=== PATIENT | female | born 1960 | race Caucasian/White ===

== ENCOUNTER → 2016-08-16 | Outpatient (CLI) | payer MEDICAID ==
[2016-08-16 14:42] LABS: Anion Gap 12 mmol/L; Blood Urea Nitrogen 20 mg/dL (7-17); Calcium 9.8 mg/dL (8.4-10.2); Carbon Dioxide 27 mmol/L (22-30); Chloride 101 mmol/L (98-107); Glucose 142 mg/dL (74-99); Non-African American GFR(MDRD) >60 (>60 ml/min/1.73 sqM); Potassium 4.2 mmol/L (3.5-5.1); Sodium 140 mmol/L (137-145)
[2016-08-16 15:07] LABS: Hemoglobin A1C 6.9 % (4.2-6.1)
== END | disposition home or self-care (01) ==
LOC: LABWHC1 14:04
PROVIDERS: ATTEND Family Medicine
DX: E78.5 Hyperlipidemia, unspecified (principal); I10 Essential (primary) hypertension; F33.1 Major depressive disorder, recurrent, moderate; E11.65 Type 2 diabetes mellitus with hyperglycemia; Z79.899 Other long term (current) drug therapy
CPT/HCPCS: 36415; 80048; 83036

== ENCOUNTER → 2016-12-21 | Outpatient (CLI) | payer MEDICAID ==
[2016-12-21 15:58] LABS: Anion Gap 11 mmol/L; Blood Urea Nitrogen 20 mg/dL (7-17); Calcium 9.8 mg/dL (8.4-10.2); Carbon Dioxide 25 mmol/L (22-30); Chloride 102 mmol/L (98-107); Glucose 95 mg/dL (74-99); Non-African American GFR(MDRD) 59 (>60 ml/min/1.73 sqM); Potassium 4.6 mmol/L (3.5-5.1); Sodium 138 mmol/L (137-145)
--- NOTE | 2016-12-21 16:26 | XR ---
Abdomen HISTORY: Hematuria, right flank pain Frontal view of the abdomen on [address] scan second July 2012 Left-sided kidney stone measures approximately 1 cm. Punctate calcifications seen within the right ki dney on prior CT not seen with certainty on today's film. There are multiple calcifications within th e pelvis which are likely represent phleboliths, difficult to exclude a ureteral calculus however. Mary Anne ng bases are not included on the exam. Bone mineralization is maintained. Degenerative disc changes i n the visualized spine. IMPRESSION: Left-sided nephrolithiasis. Indeterminate calcifications within the pelvis.
== END | disposition home or self-care (01) ==
LOC: LABWHC1 15:33
PROVIDERS: ATTEND Family Medicine
DX: N20.0 Calculus of kidney (principal); E11.65 Type 2 diabetes mellitus with hyperglycemia; I10 Essential (primary) hypertension; N30.01 Acute cystitis with hematuria
CPT/HCPCS: 36415; 74000; 80048; 83036

== ENCOUNTER → 2016-12-29 | Outpatient (CLI) | payer MEDICAID ==
--- NOTE | 2016-12-29 15:43 | US ---
EXAMINATION TYPE: US kidneys/renal and bladder DATE OF EXAM: 12/29/2016 COMPARISON: NONE CLINICAL HISTORY: N20.0 Calculus of Kidney. Left renal stone. Patient unable to urinate for 3 weeks EXAM MEASUREMENTS: Right Kidney: 11.4 x 6.0 x 6.3 cm Left Kidney: 12.0 x 4.9 x 5.5 cm Post Void Residual Volume: 360.1 mL Right Kidney: no evidence of hydronephrosis or mass Left Kidney: stone lower pole = 0.9cm Bladder: appears wnl Bilateral Jets seen: yes Normal Post Void Residual: no *Patient states complete hysterectomy 2008. Complex area noted posterior to bladder (ML pelvis) = 11. 3 x 10.2 x 8.0cm There is no evidence for hydronephrosis at this point in time. No nephrolithiasis is seen. No mukesh s are identified. The urinary bladder is anechoic. Bilateral ureteral jets are seen. IMPRESSION: 1. Nonobstructing nephrolithiasis. 2. Complex mass posterior to the urinary bladder. Correlate with the CT and/or pelvic ultrasound.
== END | disposition home or self-care (01) ==
LOC: RADUSWWP 14:52
PROVIDERS: ATTEND Urology
DX: N20.0 Calculus of kidney (principal); N32.9 Bladder disorder, unspecified
CPT/HCPCS: 76770

== ENCOUNTER 2016-12-31 11:58 | Inpatient (IN) | payer MEDICAID ==
--- NOTE | 2016-12-31 13:14 | ED ---
Female Urogenital HPI <Hunter Paul - Last Filed: 12/31/16 15:05> - General Source: patient, RN notes reviewed Mode of arrival: ambulatory Limitations: no limitations <Herminia Stiles - Last Filed: 12/31/16 20:01> - General Chief complaint: Urogenital Stated complaint: Female Time Seen by Provider: 12/31/16 12:30 - History of Present Illness Initial comments: Patient is a 56-year-old female presents to the emergency room for evaluation of urinary retention. Patient states she began developing symptoms about 3 weeks ago. Patient states she's been unable to urinate. Patient states she follow-up with her primary care provider and was told that she possibly a bladder infection. Patient states she was placed on Bactrim. Patient states she was having issues with urinating still. Patient states she has only been able to get a few droplets out and still feels the urge to urinate. Patient states that she follows-up with Dr. Moya. Patient states she had an ultrasound of her bladder/abdomen 2 days ago. Patient states she has not received the results yet. Patient states she sis still having trouble urinating. Patient states she has the urge to urinate but is unable to go. Patient states her abdomen feels very uncomfortable. Patient also states that she has also been having issues with constipation. Patient states she feels like she can't have a decent bowel movement. Patient states that she is having ribbonlike stool. Patient denies nausea or vomiting. Patient denies chest pain shortness of breath. Patient states he just wants to be able to urinate. Patient states she has a history of total hysterectomy and appendectomy. (Herminia Stiles) - Related Data Home Medications Medication Instructions Recorded Confirmed ALPRAZolam [Xanax] 0.25 mg PO Q6H PRN 12/31/16 12/31/16 Albuterol Sulfate [Proair Hfa] 2 puff INHALATION RT-Q6H PRN 12/31/16 12/31/16 Aspirin EC [Ecotrin Low Dose] 81 mg PO QAM 12/31/16 12/31/16 Atorvastatin [Lipitor] 20 mg PO HS 12/31/16 12/31/16 Canagliflozin [Invokana] 300 mg PO QAM 12/31/16 12/31/16 Dulaglutide [Trulicity] 0.75 mg SQ 12/31/16 12/31/16 Enalapril [Vasotec] 2.5 mg PO 12/31/16 12/31/16 Ergocalciferol [Vitamin D2] 50,000 unit PO TU 12/31/16 12/31/16 Famotidine [Pepcid] 20 mg PO 12/31/16 12/31/16 Fenofibrate [Lofibra] 160 mg PO 12/31/16 12/31/16 Gabapentin [Gralise] 600 mg PO 12/31/16 12/31/16 Ibuprofen [Motrin] 200 mg PO Q6HR PRN 12/31/16 12/31/16 Ibuprofen [Motrin] 400 mg PO Q6HR PRN 12/31/16 12/31/16 Ibuprofen [Motrin] 600 mg PO Q6HR PRN 12/31/16 12/31/16 Insulin Glargine,Hum.rec.anlog 20 units SQ 12/31/16 12/31/16 [Toujeo Solostar] Insulin Glargine,Hum.rec.anlog 80 units SQ [facility] 12/31/16 12/31/16 [Toujeo Solostar] Insulin Glulisine [Apidra] 15 unit SQ 12/31/16 12/31/16 Insulin Glulisine [Apidra] 35 unit SQ BID 12/31/16 12/31/16 Insulin Glulisine [Apidra] 40 unit SQ W/BRKFST 12/31/16 12/31/16 Insulin Glulisine [Apidra] See Protocol SQ TID 12/31/16 12/31/16 Loratadine [Claritin] 10 mg PO QAM 12/31/16 12/31/16 Metoprolol Tartrate [Lopressor] 25 mg PO BID 12/31/16 12/31/16 Minivelle Patch 1 patch TRANSDERM TUFR 12/31/16 12/31/16 Montelukast [Singulair] 10 mg PO 12/31/16 12/31/16 Sennosides [Senokot] 8.6 mg PO BID PRN 12/31/16 12/31/16 metFORMIN HCL ER [Glucophage Xr] 500 mg PO BID 12/31/16 12/31/16 traMADol HCL [traMADol HCL ER] 200 mg PO QAM 12/31/16 12/31/16 Allergies Allergy/AdvReac Type Severity Reaction Status Date / Time Penicillins Allergy Dyspnea/Rolando Verified 12/31/16 15:47 h Sulfa (Sulfonamide Allergy Unknown Verified 12/31/16 15:47 Antibiotics) Childhood artificial sweetner Allergy Severe Rash/Hives Uncoded 12/31/16 17:36 Review of Systems ROS Other: All systems not noted in ROS Statement are negative. <Hunter Paul - Last Filed: 12/31/16 15:05> ROS Other: All systems not noted in ROS Statement are negative. <Herminia Stiles - Last Filed: 12/31/16 20:01> ROS Statement: Those systems with pertinent positive or pertinent negative responses have been documented in the HPI. Past Medical History Past Medical History: Asthma, Diabetes Mellitus, Fibromyalgia, GERD/Reflux, Hypertension, Osteoarthritis (OA) Additional Past Medical History / Comment(s): kidney stone History of Any Multi-Drug Resistant Organisms: None Reported Past Surgical History: Adenoidectomy, Appendectomy, Section, Hysterectomy, Orthopedic Surgery, Tonsillectomy Additional Past Surgical History / Comment(s): kidney stent, D&C Past Psychological History: No Psychological Hx Reported Smoking Status: Never smoker Past Alcohol Use History: None Reported Past Drug Use History: None Reported - Past Family History Mother Family Medical History: Cancer Additional Family Medical History / Comment(s): eye, heart disease Father Additional Family Medical History / Comment(s): ALS <Herminia Stiles - Last Filed: 12/31/16 20:01> General Exam <Hunter Paul - Last Filed: 12/31/16 15:05> Limitations: no limitations General appearance: alert, anxious Head exam: Present: atraumatic, normocephalic, normal inspection Eye exam: Present: normal appearance ENT exam: Present: normal exam Neck exam: Present: normal inspection Respiratory exam: Present: normal lung sounds bilaterally. Absent: respiratory distress Cardiovascular Exam: Present: regular rate, normal rhythm, normal heart sounds GI/Abdominal exam: Present: soft, tenderness (Suprapubic discomfort), normal bowel sounds. Absent: distended, guarding, rebound, rigid Rectal exam: Present: normal rectal tone. Absent: mass (No masses palpated) Extremities exam: Present: normal inspection Back exam: Present: normal inspection Neurological exam: Present: alert, oriented X3, CN II-XII intact, normal gait Psychiatric exam: Present: normal affect, normal mood Skin exam: Present: warm, dry, intact, normal color. Absent: rash <Herminia Stiles - Last Filed: 12/31/16 20:01> - General Exam Comments Initial Comments: Sitting up in exam room, uncomfortable secondary to urinary retention (Herminia Stiles) Course <Hunter Paul - Last Filed: 12/31/16 15:05> <Herminia Stiles - Last Filed: 12/31/16 20:01> Vital Signs 12/31/16 12/31/16 12/31/16 12:00 13:00 13:54 Temperature 97.7 F Pulse Rate 72 76 Respiratory 20 20 16 Rate Blood Pressure 116/56 111/56 O2 Sat by Pulse 99 99 Oximetry 12/31/16 12/31/16 12/31/16 13:57 15:00 16:00 Temperature 99.3 F 99.2 F Pulse Rate 73 84 Respiratory 20 18 Rate Blood Pressure 108/57 108/57 119/61 O2 Sat by Pulse 98 96 98 Oximetry - Reevaluation(s) Reevaluation #1: 12/31/16 15:05 I did personally do a [id number] evaluation the patient did discuss findings with the patient and her . Patient does have evidence of a pelvic mass behind the bladder. Patient did have complaints of inability urinate today she did have 1300 mL of urine removed after catheter was placed. Additionally the patient has been having problems with bowel movements with very thin ribbon size bowel movements recently. Ultrasound done 2 days ago did show evidence of a mass behind her bladder. I did discuss case with Dr. Mckeon. The patient will be admitted with CT the abdomen and pelvis consultation by urology and Gen. surgery. Dr. eDshpandeania seen the patient past and she has requested him for consultation. (Hunter Paul) Medical Decision Making - Lab Data Result diagrams: 12/31/16 13:30 12/31/16 13:30 <Hunter Paul - Last Filed: 12/31/16 15:05> - Lab Data Result diagrams: 12/31/16 13:30 12/31/16 13:30 <Herminia Stiles L - Last Filed: 12/31/16 20:01> - Lab Data Lab Results 12/31/16 12/31/16 12/31/16 Range/Units 13:25 13:30 13:30 WBC 7.7 (3.8-10.6) k/uL RBC 4.78 (3.80-5.40) m/uL Hgb 13.1 (11.4-16.0) gm/dL Hct 41.1 (34.0-46.0) % MCV 86.0 (80.0-100.0) fL MCH 27.4 (25.0-35.0) pg MCHC 31.8 (31.0-37.0) g/dL RDW 13.5 (11.5-15.5) % Plt Count 264 (150-450) k/uL Neutrophils % 72 % Lymphocytes % 18 % Monocytes % 5 % Eosinophils % 3 % Basophils % 1 % Neutrophils # 5.6 (1.3-7.7) k/uL Lymphocytes # 1.4 (1.0-4.8) k/uL Monocytes # 0.4 (0-1.0) k/uL Eosinophils # 0.2 (0-0.7) k/uL Basophils # 0.1 (0-0.2) k/uL Sodium 143 (137-145) mmol/L Potassium 4.7 (3.5-5.1) mmol/L Chloride 107 (98-107) mmol/L Carbon Dioxide 25 (22-30) mmol/L Anion Gap 11 mmol/L BUN 18 H (7-17) mg/dL Creatinine 0.73 (0.52-1.04) mg/dL Est GFR (MDRD) Af Amer >60 (>60 ml/min/1.73 sqM) Est GFR (MDRD) Non-Af >60 (>60 ml/min/1.73 sqM) Glucose 82 (74-99) mg/dL Calcium 9.5 (8.4-10.2) mg/dL Total Bilirubin 0.8 (0.2-1.3) mg/dL AST 30 (14-36) U/L ALT 36 (9-52) U/L Alkaline Phosphatase 73 (38-126) U/L Total Protein 7.3 (6.3-8.2) g/dL Albumin 4.1 (3.5-5.0) g/dL Urine Color Yellow Urine Appearance Clear (Clear) Urine pH 5.5 (5.0-8.0) Ur Specific [place] 1.023 (1.001-1.035) Urine Protein Negative (Negative) Urine Glucose (UA) 4+ H (Negative) Urine Ketones Negative (Negative) Urine Blood Negative (Negative) Urine Nitrite Negative (Negative) Urine Bilirubin Negative (Negative) Urine Urobilinogen <2.0 (<2.0) mg/dL Ur Leukocyte Esterase Negative (Negative) Disposition <Hunter Paul - Last Filed: 12/31/16 15:05> Decision Date: 12/31/16 <Herminia Stiles - Last Filed: 12/31/16 20:01> Clinical Impression: Pelvic mass, Urinary retention Disposition: ADMITTED IP TO THIS [facility] Condition: Stable
[2016-12-31 13:40] LABS: Appearance,Urine Clear (Clear); Bilirubin,Urine Negative (Negative); Glucose,Urine (UA) 4+ (Negative); Ketones,Urine Negative (Negative); Leukocyte Esterase,Urine Negative (Negative); Nitrite,Urine Negative (Negative); PH, Urine 5.5 (5.0-8.0); Protein,Urine Negative (Negative); Specific Gravity,Urine 1.023 (1.001-1.035); UA Billing (MACRO vs. MICRO) CHEM; Urobilinogen,Urine <2.0 mg/dL (<2.0)
[2016-12-31 13:48] LABS: Basophils # (A) 0.1 k/uL (0-0.2); Basophils % (A) 1 %; CH 28.1; CHCM 32.7; Eosinophils # (A) 0.2 k/uL (0-0.7); Eosinophils % (A) 3 %; HCT 41.1 % (34.0-46.0); HDW 2.81; HGB 13.1 gm/dL (11.4-16.0); Luc # (Auto) 0.08; Luc % (Auto) 1; Lymphocytes # (A) 1.4 k/uL (1.0-4.8); Lymphocytes % (A) 18 %; MCH 27.4 pg (25.0-35.0); MCHC 31.8 g/dL (31.0-37.0); Mean Platelet Volume 6.6; Monocytes # (A) 0.4 k/uL (0-1.0); Monocytes % (A) 5 %; Neutrophils # (A) 5.6 k/uL (1.3-7.7); Neutrophils % (A) 72 %; RBC 4.78 m/uL (3.80-5.40); RDW 13.5 % (11.5-15.5); WBC 7.7 k/uL (3.8-10.6)
[2016-12-31 14:01] LABS: ALT 36 U/L (9-52); AST 30 U/L (14-36); Alkaline Phosphatase 73 U/L (38-126); Anion Gap 11 mmol/L; Blood Urea Nitrogen 18 mg/dL (7-17); Calcium 9.5 mg/dL (8.4-10.2); Carbon Dioxide 25 mmol/L (22-30); Chloride 107 mmol/L (98-107); Glucose 82 mg/dL (74-99); Non-African American GFR(MDRD) >60 (>60 ml/min/1.73 sqM); Potassium 4.7 mmol/L (3.5-5.1); Sodium 143 mmol/L (137-145); Total Bilirubin 0.8 mg/dL (0.2-1.3); Total Protein 7.3 g/dL (6.3-8.2)
[2016-12-31] MEDS ORDERED: RX INFO: IV CONTRAST WAS GIVEN 1 EACH MISC MISCELLANE PRN (14:30)
[2016-12-31] MEDS ORDERED: IOHEXOL 350 MG/ML 25 ML BOTTLE (ORAL USE) PO PRN (14:30)
[2016-12-31] MEDS ORDERED: NALOXONE 0.4 MG/ML 1 ML VIAL IV PRN (15:07)
[2016-12-31] MEDS ORDERED: IBUPROFEN 400 MG TAB PO PRN (15:07)
[2016-12-31] MEDS ORDERED: ACETAMINOPHEN TAB 325 MG TAB PO PRN (15:07)
[2016-12-31] MEDS: SODIUM CHLORIDE 0.9% 1,000 ML IV SCH (16:00)
[2016-12-31] MEDS: MORPHINE SULFATE 4 MG/ML SYRINGE IV PRN ×2 (16:09→19:52)
--- NOTE | 2016-12-31 16:54 | CT ---
EXAMINATION TYPE: CT abdomen pelvis w con DATE OF EXAM: 12/31/2016 4:44 PM COMPARISON: August 01, 2012 HISTORY: Pelvic pain and inability to urinate or have bowel movements CT DLP: 1774.7 mGycm Automated exposure control for dose reduction was used. TECHNIQUE: Helical acquisition of images was performed from the lung bases through the pelvis. CONTRAST: Performed with Oral Contrast and with IV Contrast, patient injected with 100 mL of Omnipaque 300. FINDINGS: There is mild subsegmental atelectasis at the lung bases. There is no pleural effusion. Liver spleen pancreas gallbladder appear normal. Bile ducts are not dilated. There is no adrenal mass . Kidneys show satisfactory contrast opacification. There is a 8 mm calcification in the lower pole l eft kidney. There is no hydronephrosis. Ureters are not dilated. There is a 1 cm cortical cyst on the anterior right kidney. There is no retroperitoneal adenopathy. There is a 14 x 9 cm mass in the pelvis in the midline that extends to the pelvic floor. The mass samir ears to have contrast enhancement. There is a Martel catheter in the urinary bladder. Urinary bladder is unremarkable. Hysterectomy is pr esent on the old CT scan of August 01, 2012 I see no bony destructive process.. IMPRESSION: THERE IS A LARGE MIDLINE PELVIC MASS THAT APPEARS TO BE ENHANCING CONSISTENT WITH A SOLID TUMOR THAT IS NEW COMPARED TO THE OLD CT SCAN OF AUGUST 01, 2012. THIS COULD BE A PRIMARY OVARIAN TUMOR. FOLLOW- UP IS RECOMMENDED. NONOBSTRUCTING LEFT RENAL CALCULUS IS UNCHANGED.
[2016-12-31 18:22] LABS: Glucose,Whole Blood 62 mg/dL (75-99)
[2016-12-31 18:22] LABS: Glucose,Whole Blood 76 mg/dL (75-99)
[2016-12-31 18:22] LABS: Glucose,Whole Blood 65 mg/dL (75-99)
[2016-12-31] MEDS: INSULIN LISPRO (humaLOG) 300 UNIT/3 ML VIAL SQ SCH ×2 (18:37→21:15)
[2016-12-31 21:09] LABS: Glucose,Whole Blood 77 mg/dL (75-99)
[2016-12-31] MEDS: LISINOPRIL 5 MG TAB PO SCH (21:42)
[2016-12-31] MEDS: METOPROLOL TARTRATE 25 MG TAB PO SCH (21:42)
[2016-12-31] MEDS: MORPHINE SULFATE 10 MG/ML SYRINGE IVP PRN (22:26)
[2016-12-31] MEDS: ONDANSETRON 4 MG/2 ML VIAL IVP PRN (22:29)
[2017-01-01] MEDS: MORPHINE SULFATE 10 MG/ML SYRINGE IVP PRN ×8 (01:23→22:18)
[2017-01-01] MEDS: SODIUM CHLORIDE 0.9% 1,000 ML IV SCH ×3 (01:23→19:36)
[2017-01-01 01:40] LABS: Glucose,Whole Blood 95 mg/dL (75-99)
[2017-01-01 07:50] LABS: Glucose,Whole Blood 103 mg/dL (75-99)
[2017-01-01] MEDS: INSULIN LISPRO (humaLOG) 300 UNIT/3 ML VIAL SQ SCH ×4 (07:50→21:03)
[2017-01-01] MEDS: ONDANSETRON 4 MG/2 ML VIAL IVP PRN (07:54)
[2017-01-01] MEDS: METOPROLOL TARTRATE 25 MG TAB PO SCH ×2 (08:37→21:04)
--- NOTE | 2017-01-01 10:20 | P.GSCN ---
History of Present Illness Consult date: 01/01/17 Reason for Consult: Urinary retention, constipation, mass on computed tomography scan History of present illness: The patient is a pleasant 56-year-old female who had been having some intermittent lower abdominal pain for some time. The last 3-4 weeks however she 's been having urinary complaints. He feels like she wasn't emptying well. She was first given a trial of antibiotics for a presumed infection. That didn' t help. She subsequently went in and saw the urologist and had an ultrasound ordered was. Follow-up in the office next week. She came in because she was not able to urinate. Catheter was placed in 1300 mL's of urine was withdrawn. A computed tomography scan shows a pelvic mass. He is also been having trouble with bowel movements last 3 weeks. They've been either pellet-like or ribbonlike. No blood in the stools. There is a family history of colon cancer and a maternal grandfather who is elderly. She reports a hysterectomy with oophorectomy some years ago by Dr. Betancourt. This was for benign disease. A grandmother may have had a hysterectomy for "stage nil" female cancer many years ago. Her mother and sister have had hysterectomies for benign disease. Review of Systems All systems: negative Past Medical History Past Medical History: Asthma, Diabetes Mellitus, Fibromyalgia, GERD/Reflux, Hypertension, Osteoarthritis (OA) Additional Past Medical History / Comment(s): kidney stone History of Any Multi-Drug Resistant Organisms: None Reported Past Surgical History: Adenoidectomy, Appendectomy, Section, Hysterectomy, Orthopedic Surgery, Tonsillectomy Additional Past Surgical History / Comment(s): kidney stent, D&C Past Anesthesia/Blood Transfusion Reactions: Postoperative Nausea & Vomiting ( PONV) Past Psychological History: No Psychological Hx Reported Smoking Status: Never smoker Past Alcohol Use History: None Reported Past Drug Use History: None Reported - Past Family History Mother Family Medical History: Cancer Additional Family Medical History / Comment(s): eye, heart disease Father Additional Family Medical History / Comment(s): ALS Medications and Allergies Home Medications Medication Instructions Recorded Confirmed Type ALPRAZolam [Xanax] 0.25 mg PO Q6H PRN 12/31/16 12/31/16 History Albuterol Sulfate [Proair Hfa] 2 puff INHALATION RT-Q6H PRN 12/31/16 12/31/16 History Aspirin EC [Ecotrin Low Dose] 81 mg PO QA 12/31/16 12/31/16 History Atorvastatin [Lipitor] 20 mg PO 12/31/16 12/31/16 History Canagliflozin [Invokana] 300 mg PO QA 12/31/16 12/31/16 History Dulaglutide [Trulicity] 0.75 mg SQ 12/31/16 12/31/16 History Enalapril [Vasotec] 2.5 mg PO 12/31/16 12/31/16 History Ergocalciferol [Vitamin D2] 50,000 unit PO 12/31/16 12/31/16 History Famotidine [Pepcid] 20 mg PO 12/31/16 12/31/16 History Fenofibrate [Lofibra] 160 mg PO 12/31/16 12/31/16 History Gabapentin [Gralise] 600 mg PO 12/31/16 12/31/16 History Ibuprofen [Motrin] 200 mg PO Q6HR PRN 12/31/16 12/31/16 History Ibuprofen [Motrin] 400 mg PO Q6HR PRN 12/31/16 12/31/16 History Ibuprofen [Motrin] 600 mg PO Q6HR PRN 12/31/16 12/31/16 History Insulin Glargine,Hum.rec.anlog 20 units SQ 12/31/16 12/31/16 History [Toujeo Solostar] Insulin Glargine,Hum.rec.anlog 80 units SQ [facility] 12/31/16 12/31/16 History [Toujeo Solostar] Insulin Glulisine [Apidra] 15 unit SQ 12/31/16 12/31/16 History Insulin Glulisine [Apidra] 35 unit SQ BID 12/31/16 12/31/16 History Insulin Glulisine [Apidra] 40 unit SQ W/BRKFST 12/31/16 12/31/16 History Insulin Glulisine [Apidra] See Protocol SQ TID 12/31/16 12/31/16 History Loratadine [Claritin] 10 mg PO QAM 12/31/16 12/31/16 History Metoprolol Tartrate [Lopressor] 25 mg PO BID 12/31/16 12/31/16 History Minivelle Patch 1 patch TRANSDERM TUFR 12/31/16 12/31/16 History Montelukast [Singulair] 10 mg PO HS 12/31/16 12/31/16 History Sennosides [Senokot] 8.6 mg PO BID PRN 12/31/16 12/31/16 History metFORMIN HCL ER [Glucophage Xr] 500 mg PO BID 12/31/16 12/31/16 History traMADol HCL [traMADol HCL ER] 200 mg PO QAM 12/31/16 12/31/16 History Allergies Allergy/AdvReac Type Severity Reaction Status Date / Time Penicillins Allergy Dyspnea/Rolando Verified 12/31/16 15:47 h Sulfa (Sulfonamide Allergy Unknown Verified 12/31/16 15:47 Antibiotics) Childhood artificial sweetner Allergy Severe Rash/Hives Uncoded 12/31/16 17:36 Surgical - Exam Osteopathic Statement: *. No significant issues noted on an osteopathic structural exam other than those noted in the History and Physical/Consult. Vital Signs Temp Pulse Resp BP Pulse Ox 97.7 F 72 20 116/56 99 12/31/16 12:00 12/31/16 12:00 12/31/16 12:00 12/31/16 12:00 12/31/16 12:00 - General well developed, well nourished, no distress - Eyes normal ocular movement - ENT normal mucosa - Neck trachea midline - Respiratory normal respiratory effort, clear to auscultation - Cardiovascular Rhythm: regular - Abdomen Abdomen: soft, tender (Suprapubic), bowel sounds, no organomegaly, no guarding, no rebound, no distended - Psychiatric oriented to time, oriented to person, oriented to place, speech is normal, memory intact Results - Labs 12/31/16 13:30 12/31/16 13:30 Abnormal Lab Results - Last 24 Hours (Table) 12/31/16 12/31/16 12/31/16 Range/Units 13:25 13:30 17:44 BUN 18 H (7-17) mg/dL POC Glucose (mg/dL) 62 L (75-99) mg/dL Urine Glucose (UA) 4+ H (Negative) 12/31/16 01/01/17 Range/Units 17:57 07:35 BUN (7-17) mg/dL POC Glucose (mg/dL) 65 L 103 H (75-99) mg/dL Urine Glucose (UA) (Negative) Diabetes panel 12/31/16 Range/Units 13:30 Sodium 143 (137-145) mmol/L Potassium 4.7 (3.5-5.1) mmol/L Chloride 107 (98-107) mmol/L Carbon Dioxide 25 (22-30) mmol/L BUN 18 H (7-17) mg/dL Creatinine 0.73 (0.52-1.04) mg/dL Glucose 82 (74-99) mg/dL Calcium 9.5 (8.4-10.2) mg/dL AST 30 (14-36) U/L ALT 36 (9-52) U/L Alkaline Phosphatase 73 (38-126) U/L Total Protein 7.3 (6.3-8.2) g/dL Albumin 4.1 (3.5-5.0) g/dL Calcium panel 12/31/16 Range/Units 13:30 Calcium 9.5 (8.4-10.2) mg/dL Albumin 4.1 (3.5-5.0) g/dL Pituitary panel 12/31/16 Range/Units 13:30 Sodium 143 (137-145) mmol/L Potassium 4.7 (3.5-5.1) mmol/L Chloride 107 (98-107) mmol/L Carbon Dioxide 25 (22-30) mmol/L BUN 18 H (7-17) mg/dL Creatinine 0.73 (0.52-1.04) mg/dL Glucose 82 (74-99) mg/dL Calcium 9.5 (8.4-10.2) mg/dL Adrenal panel 12/31/16 Range/Units 13:30 Sodium 143 (137-145) mmol/L Potassium 4.7 (3.5-5.1) mmol/L Chloride 107 (98-107) mmol/L Carbon Dioxide 25 (22-30) mmol/L BUN 18 H (7-17) mg/dL Creatinine 0.73 (0.52-1.04) mg/dL Glucose 82 (74-99) mg/dL Calcium 9.5 (8.4-10.2) mg/dL Total Bilirubin 0.8 (0.2-1.3) mg/dL AST 30 (14-36) U/L ALT 36 (9-52) U/L Alkaline Phosphatase 73 (38-126) U/L Total Protein 7.3 (6.3-8.2) g/dL Albumin 4.1 (3.5-5.0) g/dL - Imaging CT scan - abdomen: report reviewed, image reviewed Assessment and Plan (1) Pelvic mass Status: Acute (2) Urinary retention Status: Acute Plan: This mass appears to be a solid tumor. It does not appear to arise directly out of the bladder or the colon. She has had a hysterectomy however concern is high that this could be a gynecologic tumor. We will order some tumor markers and have her evaluated by Dr. Betancourt. Likely need a colonoscopy at some point to the family history of colon cancer. This does not appear to be a colon tumor on her CAT scan however. Further recommendations to follow
[2017-01-01] MEDS ORDERED: ALBUTEROL NEBULIZED 2.5 MG/3 ML INHALATION PRN (12:30)
[2017-01-01 12:34] LABS: Glucose,Whole Blood 90 mg/dL (75-99)
--- NOTE | 2017-01-01 13:32 | CONS ---
DATE OF CONSULTATION: REASON FOR CONSULTATION: Urinary retention. HISTORY: The patient is a 56-year-old female admitted through the emergency room yesterday for evaluation of lower abdominal pain and urinary retention. The patient says she first developed pain in her low back and lower abdomen associated with some tailbone pain 3 weeks ago. She says she was suspected to have a urinary tract infection by Dr. Ling and was treated with Bactrim. She continued to have problems and complained of constipation with a ribbon- like stool and required straining to void. She apparently had some blood noted after she voided on one occasion. She was seen by Dr. Moya on 12/28. Urinalysis at that time showed no microscopic hematuria. She was scheduled to have a renal ultrasound due to a history of urolithiasis and this did confirm a 9 mm nonobstructive calculus in the left kidney on 12/29. The patient continued to have pain and presented to the emergency room yesterday because it was more and more difficult for her to void. A catheter was inserted and drained [address] scan of the abdomen and pelvis showed a 5 x 8 mm nonobstructive calculus in the lower pole of the left kidney. The right kidney was unremarkable. A 14 x 9 cm solid mass was present posterior to the bladder and anterior to the rectum. The patient has been admitted for further evaluation. The patient has a history of urolithiasis but has not had a stone in approximately 10 years. She did have a double-J catheter placed in 1989 but apparently has not required any other surgical procedures for stones. She had undergone an abdominal hysterectomy with bilateral salpingo-oophorectomy in 2008 for treatment of pelvic pain and fibroids. She says she usually voids every 3 to 4 hours during the day and once at night. Up until one month ago, she said she did not have problems with constipation. Patient's past medical history is significant in regard to benign hypertension and diabetes mellitus, asthma, and fibromyalgia. In addition to the total abdominal hysterectomy with bilateral salpingo-oophorectomy, the patient has undergone appendectomy, adenoidectomy, tonsillectomy. THE PATIENT IS ALLERGIC TO SULFA AND PENICILLIN. Medications on admission included: 1. Xanax. 2. Pro-Air. 3. Aspirin. 4. Lipitor. 5. Invokana. 6. Trulicity. 7. Vasotec. 8. Pepcid. 9. Lofibra. 10. Motrin p.r.n. 11. Insulin. 12. Claritin. 13 Metoprolol. 14. Singulair. 15. Senokot. 16. Glucophage. 17. Tramadol p.r.n. No history of rheumatic fever, tuberculosis or hepatitis. REVIEW OF SYSTEMS: Significant in regard to the above. Patient feels more comfortable since her bladder was drained with a catheter, although she continued to have some vague lower abdominal discomfort. SOCIAL HISTORY: The patient is and is a nonsmoker. PHYSICAL EXAM: Reveals an obese 56-year-old female who is alert and oriented. Afebrile. Blood pressure 91/59. HEENT: No supraclavicular or cervical adenopathy. CHEST: Breathing is unlabored. ABDOMEN: Obese. No hepatosplenomegaly. No definite masses palpable in the lower abdomen; however, I did not perform a bimanual pelvic examination. IMPRESSION: 1. Urinary retention. This is most likely related to compression of the base of the bladder by the pelvic mass. Unfortunately, the patient had 1300 mL in the bladder which may cause some temporary atony of the bladder. 2. Pelvic mass - This mass appears solid on CT scan and relatively smooth. The most likely origin may be from an ovarian remnant; however, the patient says that both ovaries were removed in 2008. Unfortunately I was not able to retrieve the old records through the hospital computer system. RECOMMENDATIONS: I discussed removing the Martel catheter in the morning and switching the patient to intermittent catheterization, which she feels may be more comfortable. Dr. Moya has seen the patient in the past and will follow up with her. Thank you for allowing me to participate in the care of this patient. CATRINA
--- NOTE | 2017-01-01 13:44 | P.HPIM ---
History of Present Illness H&P Date: 01/01/17 Chief Complaint: Urinary retention, constipation, low back pain This patient is a 56-year-old female well-known to the practice presented to the emergency room for low back pain urinary retention and constipation. Patient states she began developing symptoms approximately 3 weeks ago. Patient states she has been unable to urinate for about 2-3 days. Patient was seen by Dr. Ling started on Bactrim for possible bladder infection and no improvement was noted. Patient states she had only been able to get a few droplets of urine out and yet still felt the urge to urinate. She was referred to Dr. Marc RUIZ. Ultrasound was performed and results are pending, patient was still retaining urine and also developed issues with constipation. She denies chest pain denies shortness of breath. Denies nausea denies vomiting. Review of Systems Constitutional: Reports as per HPI Ears, nose, mouth and throat: Reports as per HPI Cardiovascular: Reports as per HPI Respiratory: Reports as per HPI Gastrointestinal: Reports constipation Genitourinary: Reports difficulty voiding, Reports incomplete emptying, Reports kidney stones, Reports pelvic pain Menstruation: Reports post hysterectomy Musculoskeletal: Reports low back pain Integumentary: Reports as per HPI Neurological: Reports as per HPI Psychiatric: Reports depression Endocrine: Reports high blood sugars Hematologic/Lymphatic: Reports as per HPI Allergic/Immunologic: Reports as per HPI Past Medical History Past Medical History: Asthma, Diabetes Mellitus, Fibromyalgia, GERD/Reflux, Hypertension, Osteoarthritis (OA) Additional Past Medical History / Comment(s): kidney stone History of Any Multi-Drug Resistant Organisms: None Reported Past Surgical History: Adenoidectomy, Appendectomy, Section, Hysterectomy, Orthopedic Surgery, Tonsillectomy Additional Past Surgical History / Comment(s): kidney stent, D&C Past Anesthesia/Blood Transfusion Reactions: Postoperative Nausea & Vomiting ( PONV) Past Psychological History: No Psychological Hx Reported Smoking Status: Never smoker Past Alcohol Use History: None Reported Past Drug Use History: None Reported - Past Family History Mother Family Medical History: Cancer Additional Family Medical History / Comment(s): eye, heart disease Father Additional Family Medical History / Comment(s): ALS Medications and Allergies Home Medications Medication Instructions Recorded Confirmed Type ALPRAZolam [Xanax] 0.25 mg PO Q6H PRN 12/31/16 12/31/16 History Albuterol Sulfate [Proair Hfa] 2 puff INHALATION RT-Q6H PRN 12/31/16 12/31/16 History Aspirin EC [Ecotrin Low Dose] 81 mg PO QAM 12/31/16 12/31/16 History Atorvastatin [Lipitor] 20 mg PO 12/31/16 12/31/16 History Canagliflozin [Invokana] 300 mg PO QA 12/31/16 12/31/16 History Dulaglutide [Trulicity] 0.75 mg SQ 12/31/16 12/31/16 History Enalapril [Vasotec] 2.5 mg PO 12/31/16 12/31/16 History Ergocalciferol [Vitamin D2] 50,000 unit PO 12/31/16 12/31/16 History Famotidine [Pepcid] 20 mg PO 12/31/16 12/31/16 History Fenofibrate [Lofibra] 160 mg PO 12/31/16 12/31/16 History Gabapentin [Gralise] 600 mg PO 12/31/16 12/31/16 History Ibuprofen [Motrin] 200 mg PO Q6HR PRN 12/31/16 12/31/16 History Ibuprofen [Motrin] 400 mg PO Q6HR PRN 12/31/16 12/31/16 History Ibuprofen [Motrin] 600 mg PO Q6HR PRN 12/31/16 12/31/16 History Insulin Glargine,Hum.rec.anlog 20 units SQ 12/31/16 12/31/16 History [Toujeo Solostar] Insulin Glargine,Hum.rec.anlog 80 units SQ QA 12/31/16 12/31/16 History [Toujeo Solostar] Insulin Glulisine [Apidra] 15 unit SQ 12/31/16 12/31/16 History Insulin Glulisine [Apidra] 35 unit SQ BID 12/31/16 12/31/16 History Insulin Glulisine [Apidra] 40 unit SQ W/BRKFST 12/31/16 12/31/16 History Insulin Glulisine [Apidra] See Protocol SQ TID 12/31/16 12/31/16 History Loratadine [Claritin] 10 mg PO QA 12/31/16 12/31/16 History Metoprolol Tartrate [Lopressor] 25 mg PO BID 12/31/16 12/31/16 History Minivelle Patch 1 patch TRANSDERM TUFR 12/31/16 12/31/16 History Montelukast [Singulair] 10 mg PO HS 12/31/16 12/31/16 History Sennosides [Senokot] 8.6 mg PO BID PRN 12/31/16 12/31/16 History metFORMIN HCL ER [Glucophage Xr] 500 mg PO BID 12/31/16 12/31/16 History traMADol HCL [traMADol HCL ER] 200 mg PO QAM 12/31/16 12/31/16 History Allergies Allergy/AdvReac Type Severity Reaction Status Date / Time Penicillins Allergy Dyspnea/Rolando Verified 12/31/16 15:47 h Sulfa (Sulfonamide Allergy Unknown Verified 12/31/16 15:47 Antibiotics) Childhood artificial sweetner Allergy Severe Rash/Hives Uncoded 12/31/16 17:36 Physical Exam Osteopathic Statement: *. No significant issues noted on an osteopathic structural exam other than those noted in the History and Physical/Consult. Vitals: Vital Signs Temp Pulse Pulse Resp BP BP Pulse Ox 01/01/17 12:38 97.8 F 78 16 108/62 93 L 01/01/17 08:00 98.2 F 79 16 91/59 95 01/01/17 01:45 97.2 F L 78 18 99/59 94 L 12/31/16 20:45 97.5 F L 78 20 107/62 98 12/31/16 18:00 97.4 F L 76 18 116/72 97 12/31/16 16:00 99.2 F 84 18 119/61 98 12/31/16 15:00 73 20 108/57 96 12/31/16 13:57 99.3 F 108/57 98 12/31/16 13:54 16 Intake and Output 12/31/16 01/01/17 01/01/17 22:59 06:59 14:59 Intake Total 600 Output Total 1050 800 600 Balance -450 -800 -600 Intake: Oral 600 Output: Urine 1050 800 600 Uretheral (Martel) 1050 800 Other: Voiding Method Indwelling Catheter Indwelling Catheter Indwelling Catheter # Bowel Movements 1 Weight 97.522 kg General: [Patient awake, alert and oriented times 3. Patient in no acute distress.] HEENT: [PERRL. EOMI. No pharyngeal erythema or exudate.] Neck: [No adenopathy.] Cardiac: [Heart regular in rate and rhythm. No S3. No S4. No clicks, rubs. No murmur.] Lungs: [Clear to auscultation bilaterally.] Abdomen: [No mass. No organomegaly. Bowel sounds presnt and normoactive in all 4 quadrants.] Limited abdominal pain to deep palpation Extremes: [No edema no cyanosis no claudication normal pulses] : [] Musculoskeletal: [No joint erythema, edema or tenderness.] Skin: [No rash.] Neurologic: [No lateralizing deficits. CN II - XII grossly intact.] Lymphatic: [No adenopathy.] Results CBC & Chem 7: 12/31/16 13:30 12/31/16 13:30 Labs: Abnormal Lab Results - Last 24 Hours (Table) 12/31/16 12/31/16 12/31/16 Range/Units 13:25 13:30 17:44 BUN 18 H (7-17) mg/dL POC Glucose (mg/dL) 62 L (75-99) mg/dL Urine Glucose (UA) 4+ H (Negative) 12/31/16 01/01/17 Range/Units 17:57 07:35 BUN (7-17) mg/dL POC Glucose (mg/dL) 65 L 103 H (75-99) mg/dL Urine Glucose (UA) (Negative) Thrombosis Risk Factor Assmnt - DVT/VTE Prophylaxis DVT/VTE Prophylaxis: Low risk, early ambulation encouraged - Choose All That Apply Each Factor Represents 1 point: Age 41-60 years, Obesity (BMI >25) Other Risk Factors: No Other congenital or acquired thrombophilia - If yes, enter type in comment: No Thrombosis Risk Factor Assessment Total Risk Factor Score: 2 Thrombosis Risk Factor Assessment Level: Low Risk Assessment and Plan (1) Pelvic mass Narrative/Plan: Consultations with general surgery, Dr. Vaughn is on-call and perform a consult Consultation with urology Dr. Barreto performed consult We'll also consultation with gynecology Dr. Betancourt CAT scan performed and reviewed Status: Acute (2) Urinary retention Narrative/Plan: Patient currently has indwelling Martel Status: Acute Plan: Pain management with opiates Further orders to follow tumor markers were ordered Time with Patient: Greater than 30
[2017-01-01 13:55] LABS: Hemoglobin A1C 6.8 % (4.2-6.1)
--- NOTE | 2017-01-01 14:59 | P.OBCN ---
History of Present Illness Consult date: 01/01/17 Requesting physician: Bay Montero Jr Reason for consult: pelvic mass Chief complaint: Urinary retention, abdominal pain History of present illness: The patient is a 56-year-old 3 para 2012 who was initially admitted to the hospital complaining of difficulty urinating and increasing abdominal pain. She had previously been treated for urinary tract infection and has had microscopic hematuria in the past which has not lead to any solid diagnoses. After evaluation the emergency room and catheterization of the bladder for 1300 mL of urine, she is admitted to the hospital. She underwent computed tomography scan which demonstrates a large 14 x 9 cm solid-appearing mass occupying the pelvis reportedly above the rectum and below the bladder. The patient has undergone total abdominal hysterectomy and bilateral salpingo- oophorectomy in October 2008. The pathology was reviewed by myself from our office and is entirely benign with a finding of only leiomyomata in the myometrial tissue. The attenuation on the computed tomography scan is consistent with a soft tissue type of tumor or possible fibroid but the likelihood of this is extraordinarily low given her history of complete hysterectomy with documented pathology. She does continue to have some discomfort and difficulty both moving bowels and voiding. Catheter is in place at this time. She reports that she has felt generalized pelvic pressure and bloating for a period of months to even possibly years. She wears elastic pants and therefore is not certain as to whether or not her close it become tighter or not. Of some interest, after describing the appearance on computed tomography scan of the mass, the patient commented that her daughter carries a diagnosis of neurofibromatosis. The patient herself has never had any lesions to her knowledge and I am aware of no cafe au laite spots. Obstetrical history: 3 para 2013 with one normal vaginal delivery followed by delivery of twins. Method of contraception has been vasectomy and hysterectomy as noted above. Gynecologic history: Unremarkable aside from history of MARIOLA/BSO in 2008 with the uterus, tubes, and ovaries entirely removed with benign pathology. Review of Systems Review of systems is confined to history of present illness. Past Medical History Past Medical History: Asthma, Diabetes Mellitus, Fibromyalgia, GERD/Reflux, Hypertension, Osteoarthritis (OA) Additional Past Medical History / Comment(s): kidney stone History of Any Multi-Drug Resistant Organisms: None Reported Past Surgical History: Adenoidectomy, Appendectomy, Section, Hysterectomy, Orthopedic Surgery, Tonsillectomy Additional Past Surgical History / Comment(s): kidney stent, D&C Past Anesthesia/Blood Transfusion Reactions: Postoperative Nausea & Vomiting ( PONV) Past Psychological History: No Psychological Hx Reported Smoking Status: Never smoker Past Alcohol Use History: None Reported Past Drug Use History: None Reported - Past Family History Mother Family Medical History: Cancer Additional Family Medical History / Comment(s): eye, heart disease Father Additional Family Medical History / Comment(s): ALS Medications and Allergies Home Medications Medication Instructions Recorded Confirmed Type ALPRAZolam [Xanax] 0.25 mg PO Q6H PRN 12/31/16 12/31/16 History Albuterol Sulfate [Proair Hfa] 2 puff INHALATION RT-Q6H PRN 12/31/16 12/31/16 History Aspirin EC [Ecotrin Low Dose] 81 mg PO [facility] 12/31/16 12/31/16 History Atorvastatin [Lipitor] 20 mg PO 12/31/16 12/31/16 History Canagliflozin [Invokana] 300 mg PO [facility] 12/31/16 12/31/16 History Dulaglutide [Trulicity] 0.75 mg SQ 12/31/16 12/31/16 History Enalapril [Vasotec] 2.5 mg PO 12/31/16 12/31/16 History Ergocalciferol [Vitamin D2] 50,000 unit PO 12/31/16 12/31/16 History Famotidine [Pepcid] 20 mg PO 12/31/16 12/31/16 History Fenofibrate [Lofibra] 160 mg PO 12/31/16 12/31/16 History Gabapentin [Gralise] 600 mg PO 12/31/16 12/31/16 History Ibuprofen [Motrin] 200 mg PO Q6HR PRN 12/31/16 12/31/16 History Ibuprofen [Motrin] 400 mg PO Q6HR PRN 12/31/16 12/31/16 History Ibuprofen [Motrin] 600 mg PO Q6HR PRN 12/31/16 12/31/16 History Insulin Glargine,Hum.rec.anlog 20 units SQ 12/31/16 12/31/16 History [Grover Kowalski] Insulin Glargine,Hum.rec.anlog 80 units SQ QAM 12/31/16 12/31/16 History [Jaeubala Solostar] Insulin Glulisine [Apidra] 15 unit SQ HS 12/31/16 12/31/16 History Insulin Glulisine [Apidra] 35 unit SQ BID 12/31/16 12/31/16 History Insulin Glulisine [Apidra] 40 unit SQ W/BRKFST 12/31/16 12/31/16 History Insulin Glulisine [Apidra] See Protocol SQ TID 12/31/16 12/31/16 History Loratadine [Claritin] 10 mg PO QAM 12/31/16 12/31/16 History Metoprolol Tartrate [Lopressor] 25 mg PO BID 12/31/16 12/31/16 History Minivelle Patch 1 patch TRANSDERM TUFR 12/31/16 12/31/16 History Montelukast [Singulair] 10 mg PO HS 12/31/16 12/31/16 History Sennosides [Senokot] 8.6 mg PO BID PRN 12/31/16 12/31/16 History metFORMIN HCL ER [Glucophage Xr] 500 mg PO BID 12/31/16 12/31/16 History traMADol HCL [traMADol HCL ER] 200 mg PO QAM 12/31/16 12/31/16 History Allergies Allergy/AdvReac Type Severity Reaction Status Date / Time Penicillins Allergy Dyspnea/Rolando Verified 12/31/16 15:47 h Sulfa (Sulfonamide Allergy Unknown Verified 12/31/16 15:47 Antibiotics) Childhood artificial sweetner Allergy Severe Rash/Hives Uncoded 12/31/16 17:36 Exam - Vital Signs Vital signs: Vital Signs Temp Pulse Pulse Resp BP BP Pulse Ox 01/01/17 12:38 97.8 F 78 16 108/62 93 L 01/01/17 08:00 98.2 F 79 16 91/59 95 01/01/17 01:45 97.2 F L 78 18 99/59 94 L 12/31/16 20:45 97.5 F L 78 20 107/62 98 12/31/16 18:00 97.4 F L 76 18 116/72 97 12/31/16 16:00 99.2 F 84 18 119/61 98 06/03/17 15:00 73 20 108/57 96 Intake and Output 12/31/16 01/01/17 01/01/17 22:59 06:59 14:59 Intake Total 600 Output Total 1050 800 600 Balance -450 -800 -600 Intake: Oral 600 Output: Urine 1050 800 600 Uretheral (Martel) 1050 800 Other: Voiding Method Indwelling Catheter Indwelling Catheter Indwelling Catheter # Bowel Movements 1 Weight 97.522 kg In general, this is a well-developed centrally obese white female in no acute distress. Examination is limited to the abdomen and pelvis. Abdominal examination demonstrates some distention with mild bilateral lower quadrant tenderness and a possible palpable mass just above the pelvic brim which is tender to palpation. Bimanual pelvic examination demonstrates a normal vagina that is displaced anteriorly by a mass posterior to it. The pelvic organs are surgically absent. The Martel bulb is palpable in the bladder. Rectovaginal examination confirms the mass in the left perirectal space and wrapping around to the anterior portion of the rectum I with the rectum being deviated to the patient's right. The mass is smooth and firm though not hard to palpation. Hemoccult cards are not available on the floor. Results Result Diagrams: 12/31/16 13:30 12/31/16 13:30 Abnormal Lab Results - Last 24 Hours (Table) 12/31/16 12/31/16 12/31/16 Range/Units 13:30 17:44 17:57 POC Glucose (mg/dL) 62 L 65 L (75-99) mg/dL Hemoglobin A1c 6.8 H (4.2-6.1) % 01/01/17 Range/Units 07:35 POC Glucose (mg/dL) 103 H (75-99) mg/dL Hemoglobin A1c (4.2-6.1) % Assessment and Plan (1) Pelvic mass Status: Acute Plan: The likelihood of this mass being of gynecologic origin is extraordinarily low as the patient has undergone MARIOLA/BSO with benign pathology documented in the past. The mass is found, on exam, to occupy the left perirectal space and superiorly. Its appearance on computed tomography scan is consistent with a soft tissue or muscular type of mass and could potentially be consistent with a fibroma or neurofibroma. Tumor markers have been ordered both by general surgery and myself. The mass does not have any appearance of a typical ovarian remnant mass or for being from primary peritoneal origin. I have ordered the OVA-1 test in either case. Possibility for further diagnosis might be CT- guided needle biopsy of the mass as it does appear solid in nature. This could be entertained with interventional radiology. We will continue to follow at a distance in order to follow-up the labs that a been ordered but will otherwise leave the case in the hands of general surgery and primary care. Thank you for the opportunity to participate in this pleasant patient's care.
[2017-01-01] MEDS: KETOROLAC 30 MG/ML 1 ML VIAL IVP PRN ×2 (15:04→21:03)
[2017-01-01 17:13] LABS: Glucose,Whole Blood 118 mg/dL (75-99)
[2017-01-01 19:01] LABS: Cancer Anitgen 125 <5.5 U/mL (<35.1)
[2017-01-01 20:48] LABS: Glucose,Whole Blood 91 mg/dL (75-99)
[2017-01-01] MEDS: LISINOPRIL 5 MG TAB PO SCH (21:04)
[2017-01-01] MEDS: ATORVASTATIN 20 MG TAB PO SCH (21:04)
[2017-01-02] MEDS: MORPHINE SULFATE 10 MG/ML SYRINGE IVP PRN ×7 (01:10→20:42)
[2017-01-02] MEDS: KETOROLAC 30 MG/ML 1 ML VIAL IVP PRN ×3 (03:04→15:40)
[2017-01-02] MEDS: ONDANSETRON 4 MG/2 ML VIAL IVP PRN ×3 (03:23→19:28)
[2017-01-02] MEDS: SODIUM CHLORIDE 0.9% 1,000 ML IV SCH ×2 (03:24→22:39)
[2017-01-02 03:40] LABS: Glucose,Whole Blood 92 mg/dL (75-99)
[2017-01-02 07:36] LABS: Glucose,Whole Blood 85 mg/dL (75-99)
[2017-01-02] MEDS: INSULIN LISPRO (humaLOG) 300 UNIT/3 ML VIAL SQ SCH ×4 (07:47→20:28)
[2017-01-02] MEDS: METOPROLOL TARTRATE 25 MG TAB PO SCH ×2 (09:08→20:21)
--- NOTE | 2017-01-02 09:39 | P.CN ---
Psychiatric Consult - . Consult date: 01/02/17 Consult:: 01/02/17 09:30DATE OF SERVICE: 01/02/2017 IDENTIFYING DATA: 56 year old female admitted to the medical floor for problems with urination. HISTORY OF PRESENT ILLNESS: The patient patient lying in bed with family members and friends around her. Friends left has been remained. Patient reports that she was having problems urinating treated with antibiotics which did not help she was then sent to the emergency room. where they had to Her with over 1000 mL of urine. Patient had a workup and has been found to have a tumor. The workup is continuing as to the nature of that tumor. Psychiatric consult. Patient reports that she felt anxious last night they gave her medicine which seemed to be negative she felt nauseated and almost vomited. Patient reports that even before coming in with this problem that she was a worrier. 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 Patient also reports that in the past 2 years or so she's had a number of stressors with loss of a sister to [facility] and her father also from ALS. Patient also reports that she has some depression, has been reports sometimes she seems hopeless. They both denied that she ever has had suicidal ideation. Patient is tearful, dysphoric, anxious. Occasional hopelessness, no worthlessness, no suicidal ideation. PAST PSYCHIATRIC HISTORY: None But reports that her primary care provider put her on Wellbutrin years ago and she had side effect of tinnitus. She has a prescription now for Xanax 0.25 but states she might use it once in a great while PAST MEDICAL HISTORY: Per record ALLERGIES: Penicillin sulfa artificial sweetener CHEMICAL DEPENDENCY HISTORY: Denies any history of alcohol or drug abuse FAMILY PSYCHIATRIC HISTORY: Father had bipolar disorder and that he was treated with lithium. No history of family suicide FAMILY CHEMICAL DEPENDENCY HISTORY: None that she is aware of LEGAL HISTORY: Denies SOCIAL HISTORY: Patient was born and raised in the area parents were for her childhood she did well in school. 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 She had one sister who is from ALS. She has a stepbrother. She's been for 26 years she had thoughts 3 children one is 19 years old and she has twins who are 17 MENTAL STATUS EXAM: [Patient alert and oriented 3, good eye contact, fair groomed in hospital attire. Speech normal volume, rate and production. Coherent, logical and circumstantial thought process. No LIZ, no FOI. No TB/TW/ TI Denied auditory and visual hallucinations. Denied paranoid ideation, delusions or IOR. Memory intact Cognition average Recalled 3/3 @00, 3/3@5; WORLD DLROW Mood anxious and dysphoric tearful, affect full range decreased intensity, congruent with mood. Denies suicidal ideation, denies homicidal ideation. Insight full; Judgment plan intact for treatment purposes IMPRESSIONS: Patient admitted to the medical floor due to urinary obstruction on imaging a tumor was found and it is in the process of being worked up. Currently patient is reporting symptoms of anxiety that existed prior to this admission, and some depressive symptoms possibly meeting a full diagnosis of MDD. She has no history of suicide attempts, no history of psychiatric admissions. There is a family member who had bipolar disorder no family member who committed suicide. No jhoan no hypomania. No psychosis. No history of substance use currently or in the past. No suicidal ideation, has future oriented plans. No immediate danger to self or others. Patient is stable for discharge from a psychiatric point of view when medically cleared Anxiety disorder, unspecified Rule out KAILASH Rule out MDD PLAN: We discussed the benefit of a medicine that would treat both anxiety and depression, Effexor, she agreed that she would like to take it but would prefer to wait until she is out of the hospital and finished with what's happening to her right now. I stated that that would be fine and that her primary care doctor could manage this medication. Recommend Effexor XR 37.5 mg by mouth every morning 3 days, increase to 75 mg every morning for 3 days, and continue to increase every 3 days as tolerated until at a dose of 225 mg which will begin the dual receptor quality of this medication. Patient and agreed with treatment plan. Please reconsult if needed, psychiatry signing off. 01/02/17 09:40 01/02/17 09:48
[2017-01-02] MEDS ORDERED: PEG 3350-NA SULF,BICARB,CL/KCL 4,000 ML BOTTLE PO ONE (11:44)
--- NOTE | 2017-01-02 11:44 | P.PN ---
Subjective Principal diagnosis: Pelvic mass The patient states she feels better today. She is actually passing gas and feels more comfortable with her Martel catheter in place. I had a lengthy discussion the patient regarding her pelvic tumor. The patient had a previous hysterectomy BSO. It is unlikely this is of GROUTMAN origin. The mass on CAT scan appears to be arising from outside the colon. The patient will be scheduled for colonoscopy in the a.m. She'll undergo exposure laparotomy on Monday. Objective - Vital Signs Vital signs: Vital Signs Temp 98.2 F 01/02/17 07:00 Pulse 74 01/02/17 07:00 Resp 19 01/02/17 07:00 BP 106/64 01/02/17 07:00 Pulse Ox 94 L 01/02/17 07:00 Intake & Output 01/01/17 01/02/17 01/02/17 18:59 06:59 18:59 Intake Total 200 Output Total 600 750 Balance -400 -750 Intake: Oral 200 Output: Urine 600 700 Emesis 50 Other: Voiding Method Indwelling Catheter Indwelling Catheter Indwelling Catheter # Voids 1 # Bowel Movements 1 - Constitutional General appearance: Present: average body habitus - Gastrointestinal Gastrointestinal Comment(s): Abdomen soft. There is some mild tenderness lower quadrants. There is no rebound or guarding. - Labs CBC & Chem 7: 12/31/16 13:30 12/31/16 13:30 Labs: Abnormal Lab Results - Last 24 Hours (Table) 12/31/16 01/01/17 Range/Units 13:30 17:09 POC Glucose (mg/dL) 118 H (75-99) mg/dL Hemoglobin A1c 6.8 H (4.2-6.1) % Assessment and Plan Plan: Pelvic mass. Patient will undergo colonoscopy in a.m. We are planning for exposure laparotomy on Monday.
[2017-01-02] MEDS ORDERED: LACTATED RINGERS 1,000 ML IV ONE (12:00)
[2017-01-02 12:45] LABS: Glucose,Whole Blood 80 mg/dL (75-99)
--- NOTE | 2017-01-02 14:54 | P.PN ---
Subjective Principal diagnosis: Alexandra is a 56-year-old female well-known to my practice who presented via the emergency room 2 days ago with chief complaint of urinary retention and constipation and what turned out to be a pelvic mass Patient status post total abdominal hysterectomy bilateral salpingo- oophorectomy several years ago, who was admitted with the complaint of urinary retention, constipation, pelvic pain and what turned out to be a pelvic mass. Colonoscopy pending with possible laparoscopy per Dr. Graham. Objective - Vital Signs Vital signs: Vital Signs Temp 98.6 F 01/02/17 13:22 Pulse 74 01/02/17 13:22 Resp 19 01/02/17 13:22 BP 120/69 01/02/17 13:22 Pulse Ox 95 01/02/17 13:22 Intake & Output 01/01/17 01/02/17 01/02/17 18:59 06:59 18:59 Intake Total 200 Output Total 600 750 Balance -400 -750 Weight 97.522 kg Intake: Oral 200 Output: Urine 600 700 Emesis 50 Other: Voiding Method Indwelling Catheter Indwelling Catheter Indwelling Catheter # Voids 1 # Bowel Movements 1 - Exam General: [Patient awake, alert and oriented times 3. Patient in no acute distress.] HEENT: [PERRL. EOMI. No pharyngeal erythema or exudate.] Neck: [No adenopathy.] Cardiac: [Heart regular in rate and rhythm. No S3. No S4. No clicks, rubs. No murmur.] Lungs: [Clear to auscultation bilaterally.] Abdomen: [No mass. No organomegaly. Bowel sounds presnt and normoactive in all 4 quadrants.] Mild pelvic pain, with pelvic mass Extremes: [No edema no cyanosis no claudication normal pulses] : Indwelling Martel catheter present Musculoskeletal: [No joint erythema, edema or tenderness.] Skin: [No rash.] Neurologic: [No lateralizing deficits. CN II - XII grossly intact.] Lymphatic: [No adenopathy.] - Labs CBC & Chem 7: 12/31/16 13:30 12/31/16 13:30 Labs: Abnormal Lab Results - Last 24 Hours (Table) 01/01/17 Range/Units 17:09 POC Glucose (mg/dL) 118 H (75-99) mg/dL Assessment and Plan (1) Pelvic mass Narrative/Plan: Consultations with general surgery, Dr. Nelson will be performing colonoscopy and subsequent laparoscopy Consultation with urology Dr. Barreto performed consult We'll also consultation with gynecology Dr Valentin CAT scan performed and reviewed Status: Acute (2) Urinary retention Narrative/Plan: Patient currently has indwelling Martel Status: Acute Plan: Pain management with opiates Further orders to follow tumor markers were ordered Time with Patient: Less than 30
[2017-01-02 17:12] LABS: Glucose,Whole Blood 94 mg/dL (75-99)
[2017-01-02] MEDS: ATORVASTATIN 20 MG TAB PO SCH (20:21)
[2017-01-02] MEDS: LISINOPRIL 5 MG TAB PO SCH (20:21)
[2017-01-02 20:32] LABS: Glucose,Whole Blood 107 mg/dL (75-99)
[2017-01-03] MEDS: KETOROLAC 30 MG/ML 1 ML VIAL IVP PRN ×4 (00:23→21:41)
[2017-01-03 02:47] LABS: Glucose,Whole Blood 91 mg/dL (75-99)
[2017-01-03 06:04] LABS: CH 27.2; CHCM 32.1; HCT 33.2 % (34.0-46.0); HDW 2.89; HGB 10.5 gm/dL (11.4-16.0); Hypochromasia Slight; MCHC 31.8 g/dL (31.0-37.0); MCV 84.9 fL (80.0-100.0); Mean Platelet Volume 6.8; RBC 3.91 m/uL (3.80-5.40); RDW 13.1 % (11.5-15.5); WBC 5.2 k/uL (3.8-10.6)
[2017-01-03 06:13] LABS: ALT 32 U/L (9-52); AST 22 U/L (14-36); Alkaline Phosphatase 56 U/L (38-126); Anion Gap 7 mmol/L; Blood Urea Nitrogen 19 mg/dL (7-17); Calcium 8.2 mg/dL (8.4-10.2); Carbon Dioxide 24 mmol/L (22-30); Chloride 109 mmol/L (98-107); Glucose 84 mg/dL (74-99); Non-African American GFR(MDRD) >60 (>60 ml/min/1.73 sqM); Sodium 140 mmol/L (137-145); Total Bilirubin 0.3 mg/dL (0.2-1.3); Total Protein 5.3 g/dL (6.3-8.2)
[2017-01-03] MEDS: ONDANSETRON 4 MG/2 ML VIAL IVP PRN (08:22)
[2017-01-03] MEDS: SODIUM CHLORIDE 0.9% 1,000 ML IV SCH ×3 (08:26→23:09)
[2017-01-03 08:37] LABS: Glucose,Whole Blood 79 mg/dL (75-99)
[2017-01-03] MEDS ORDERED: IV FLUID CONTINUATION 1,000 ML IV ONE (10:07)
[2017-01-03] MEDS ORDERED: PROPOFOL 10 MG/ML 20 ML VIAL IV ONE (10:41)
[2017-01-03] MEDS ORDERED: MIDAZOLAM 2 MG/2 ML VIAL ONE (10:41)
[2017-01-03] MEDS ORDERED: HYDROmorphone (PF) 1 MG/ML ONE (10:41)
[2017-01-03] MEDS ORDERED: LIDOCAINE 1% INJ 10MG/ML (20 ML MDV) ONE (10:41)
[2017-01-03] MEDS ORDERED: ONDANSETRON 4 MG/2 ML VIAL ONE (10:41)
--- NOTE | 2017-01-03 10:58 | P.OP ---
Date of Procedure: 01/03/17 Preoperative Diagnosis: Pelvic mass Postoperative Diagnosis: Pelvic mass No evidence of colonic tumor Procedure(s) Performed: Colonoscopy Implants: Anesthesia: MAC Surgeon: Renzo Rodriguez Pathology: none sent Condition: stable Disposition: PACU Indications for Procedure: Operative Findings: Description of Procedure: The patient's placed on the operating table in the lateral position. She received IV sedation. Digital rectal exam was performed which revealed a fullness on the left lateral rectal wall. A vaginal exam was PERFORMED which showed a fullness on the left lateral vaginal wall. At this point the flexible colonoscope was then placed patient anus and passed throughout the colon. Scope was placed to the level prostate 90 cm. The mid transverse colon was visualized. The scope was not advanced due to difficulty advancing the colonoscope which was thought to be due to the large pelvic mass. At this point the scope was withdrawn. The transverse colon appeared normal. In the descending and sigmoid colon there was some evidence of diverticulosis. The distal sigmoid the colon appeared to be partially collapsed due to the mass. Scope was then brought back the rectum and this appeared normal. Scope was withdrawn for patient.
--- NOTE | 2017-01-03 11:22 | P.PN ---
Progress Note - Text I discussed the colonoscopy results with the patient in her family. Patient has a large pelvic tumor which is obstructing her colon and bladder. The tumor is arising from outside of the colon. There is no evidence of any colonic tumor on her CAT scan and colonoscopy. I discussed with the patient's family that due to the obstructing symptoms of her tumor she will need to undergo exploratory laparotomy. I went over the risks and evidence of procedure I discussed the risk of possible colostomy, ureteral injury and vascular injury due to the location of the tumor. The patient will be scheduled for exploratory laparotomy tomorrow.
[2017-01-03 12:59] LABS: Glucose,Whole Blood 87 mg/dL (75-99)
[2017-01-03] MEDS: METOPROLOL TARTRATE 25 MG TAB PO SCH ×2 (14:29→21:36)
[2017-01-03] MEDS: MORPHINE SULFATE 10 MG/ML SYRINGE IVP PRN ×3 (14:32→23:13)
[2017-01-03] MEDS: ERGOCALCIFEROL 50,000 UNIT CAP PO SCH (14:46)
[2017-01-03] MEDS: INSULIN LISPRO (humaLOG) 300 UNIT/3 ML VIAL SQ SCH ×4 (15:14→21:37)
[2017-01-03 17:39] LABS: Glucose,Whole Blood 124 mg/dL (75-99)
--- NOTE | 2017-01-03 19:20 | P.PN ---
Progress Note - Text Mrs. Mcrae is scheduled to undergo exploratory laparotomy tomorrow, as the colonoscopy today showed no colonic lesions. The Martel catheter will remain in place perioperatively. We'll continue to follow with you.
--- NOTE | 2017-01-03 20:45 | P.PN ---
Subjective Principal diagnosis: Alexandra is a 56-year-old female well-known to my practice who presented via the emergency room 2 days ago with chief complaint of urinary retention and constipation and what turned out to be a pelvic mass, patient has undergone colonoscopy today biopsies pending undergoing laparotomy tentatively tomorrow Patient status post total abdominal hysterectomy bilateral salpingo- oophorectomy several years ago, who was admitted with the complaint of urinary retention, constipation, pelvic pain and what turned out to be a pelvic mass. Colonoscopy pending with possible laparotomy per Dr. Graham. Objective - Vital Signs Vital signs: Vital Signs Temp 99.0 F 01/03/17 16:00 Pulse 76 01/03/17 16:00 Resp 20 01/03/17 16:00 BP 111/54 01/03/17 16:00 Pulse Ox 96 01/03/17 16:00 Intake & Output 01/03/17 01/03/17 01/04/17 06:59 18:59 06:59 Intake Total 2000 540 Output Total 1675 750 Balance 325 -210 Intake: IV 300 Oral 2000 240 Output: Urine 975 750 Emesis 700 Other: Voiding Method Indwelling Catheter Indwelling Catheter # Bowel Movements 1 - Exam General: [Patient awake, alert and oriented times 3. Patient in no acute distress.] HEENT: [PERRL. EOMI. No pharyngeal erythema or exudate.] Neck: [No adenopathy.] Cardiac: [Heart regular in rate and rhythm. No S3. No S4. No clicks, rubs. No murmur.] Lungs: [Clear to auscultation bilaterally.] Abdomen: [No mass. No organomegaly. Bowel sounds presnt and normoactive in all 4 quadrants.] Mild pelvic pain, with pelvic mass Extremes: [No edema no cyanosis no claudication normal pulses] : Indwelling Martel catheter present Musculoskeletal: [No joint erythema, edema or tenderness.] Skin: [No rash.] Neurologic: [No lateralizing deficits. CN II - XII grossly intact.] Lymphatic: [No adenopathy.] - Labs CBC & Chem 7: 01/03/17 05:38 01/03/17 05:38 Labs: Abnormal Lab Results - Last 24 Hours (Table) 01/03/17 01/03/17 01/03/17 Range/Units 05:38 05:38 17:37 Hgb 10.5 L (11.4-16.0) gm/dL Hct 33.2 L (34.0-46.0) % Chloride 109 H (98-107) mmol/L BUN 19 H (7-17) mg/dL POC Glucose (mg/dL) 124 H (75-99) mg/dL Calcium 8.2 L (8.4-10.2) mg/dL Total Protein 5.3 L (6.3-8.2) g/dL Albumin 2.8 L (3.5-5.0) g/dL Assessment and Plan (1) Pelvic mass Narrative/Plan: Consultations with general surgery, Dr. Nelson will be performing colonoscopy and subsequent laparoscopy Consultation with urology Dr. Barreto performed consult We'll also consultation with gynecology Dr Valentin CAT scan performed and reviewed Status: Acute (2) Urinary retention Narrative/Plan: Patient currently has indwelling Martel Status: Acute Plan: Pain management with opiates Further orders to follow tumor markers were ordered
[2017-01-03] MEDS ORDERED: HYDROmorphone 1 MG/ML 1 ML SYRINGE IVP PRN (21:10)
[2017-01-03] MEDS: ATORVASTATIN 20 MG TAB PO SCH (21:36)
[2017-01-03] MEDS: LISINOPRIL 5 MG TAB PO SCH (21:37)
[2017-01-03 21:50] LABS: Glucose,Whole Blood 90 mg/dL (75-99)
[2017-01-03] MEDS: ALPRAZolam 0.25 MG TAB PO PRN (23:13)
[2017-01-04 03:45] LABS: Glucose,Whole Blood 90 mg/dL (75-99)
[2017-01-04] MEDS: KETOROLAC 30 MG/ML 1 ML VIAL IVP PRN ×2 (03:51→10:03)
[2017-01-04 06:51] LABS: CH 27.6; CHCM 32.5; HCT 33.3 % (34.0-46.0); HDW 2.92; HGB 10.9 gm/dL (11.4-16.0); MCH 27.8 pg (25.0-35.0); MCHC 32.7 g/dL (31.0-37.0); MCV 85.1 fL (80.0-100.0); Mean Platelet Volume 6.8; RBC 3.91 m/uL (3.80-5.40); RDW 13.3 % (11.5-15.5); WBC 5.2 k/uL (3.8-10.6)
[2017-01-04] MEDS: MORPHINE SULFATE 10 MG/ML SYRINGE IVP PRN ×2 (07:10→10:04)
[2017-01-04 08:38] LABS: Glucose,Whole Blood 97 mg/dL (75-99)
[2017-01-04] MEDS: SODIUM CHLORIDE 0.9% 1,000 ML IV SCH ×2 (09:31→18:28)
[2017-01-04] MEDS: METOPROLOL TARTRATE 25 MG TAB PO SCH ×2 (10:06→21:18)
[2017-01-04] MEDS: INSULIN LISPRO (humaLOG) 300 UNIT/3 ML VIAL SQ SCH ×4 (11:09→21:03)
[2017-01-04 12:38] LABS: Glucose,Whole Blood 82 mg/dL (75-99)
[2017-01-04] MEDS ORDERED: IV FLUID CONTINUATION 600 ML IV ONE (13:21)
[2017-01-04] MEDS: LACTATED RINGERS 1,000 ML IV SCH (13:43)
[2017-01-04] MEDS ORDERED: fentaNYL (PF) 50 MCG/ML 2 ML AMP IV ONE ×2 (13:48→14:01)
[2017-01-04] MEDS ORDERED: MIDAZOLAM 2 MG/2 ML VIAL IV ONE (14:00)
[2017-01-04] MEDS ORDERED: NALOXONE 0.4 MG/ML 1 ML VIAL IV PRN ×2 (14:20→17:19)
[2017-01-04] MEDS ORDERED: BUPIVACAINE (PF) 0.5% 50 ML, HYDROMORPHONE (PF) 5 MG in SODIUM CHLORIDE 0.9% 200 ML EPIDURAL PRN (14:30)
[2017-01-04] MEDS ORDERED: MIDAZOLAM 2 MG/2 ML VIAL ONE (15:31)
[2017-01-04] MEDS ORDERED: ONDANSETRON 4 MG/2 ML VIAL ONE (15:31)
[2017-01-04] MEDS ORDERED: GLYCOPYRROLATE 0.2 MG/ML 2 ML VIAL ONE (15:31)
[2017-01-04] MEDS ORDERED: LIDOCAINE 1% INJ 10MG/ML (20 ML MDV) ONE (15:31)
[2017-01-04] MEDS ORDERED: PROPOFOL 10 MG/ML 20 ML VIAL IV ONE (15:31)
[2017-01-04] MEDS ORDERED: DEXAMETHASONE SOD PHOS (MDV) 100 MG/10 ML VIAL ONE (15:31)
[2017-01-04] MEDS ORDERED: diphenhydrAMINE 50 MG/ML 1 ML VIAL ONE (15:31)
[2017-01-04] MEDS ORDERED: NEOSTIGMINE 1 MG/ML 10 ML VIAL ONE (15:31)
[2017-01-04] MEDS ORDERED: VECURONIUM 10 MG VIAL IV ONE (15:31)
[2017-01-04] MEDS ORDERED: fentaNYL (PF) 50 MCG/ML 2 ML AMP ONE (15:31)
[2017-01-04] MEDS ORDERED: SUCCINYLCHOLINE CHLORIDE 100 MG/5 ML SYR IV ONE (15:31)
[2017-01-04] MEDS ORDERED: LACTATED RINGERS 1,000 ML IV ONE ×2 (16:07→17:19)
[2017-01-04] MEDS ORDERED: FLUID CONTINUATION IV ONE ×2 (16:07)
[2017-01-04] MEDS ORDERED: CLINDAMYCIN IV ONE ×2 (16:07)
--- NOTE | 2017-01-04 17:17 | P.OP ---
Date of Procedure: 01/04/17 Preoperative Diagnosis: Pelvic mass Postoperative Diagnosis: Pelvic mass deferred pathologyp Procedure(s) Performed: Exploratory laparotomy Excision of pelvic mass Implants: Anesthesia: TAOA Surgeon: Renzo Rodriguez Estimated Blood Loss (ml): 400 Pathology: other (Pelvic mass) Condition: stable Disposition: PACU Indications for Procedure: Operative Findings: Description of Procedure: The patient's placed on the operative table in the supine position. She received general anesthesia. She was then placed in dorsal 5 position. Her abdomen was then prepped and draped usual sterile fashion. The abdomen was entered through midline incision. The Bookwalter placed a wound. And then the abdomen was explored. The colon appeared normal. The small bowel appeared normal. The colon was followed to the level of the sigmoid colon and then the mass was encountered. The mass. The outside of the mesentery the colon. The mass was then visualized and appeared to be a glossy homogeneous grade tissue. The mass was then bluntly dissected away from the pelvic sidewall and the mesentery of the colon. Several small mesenteric veins the colon were bleeding and these were ligated with 3-0 GI silk suture. The mass was then further dissected with blunt dissection down towards the pelvis. The mass was then completely mobilized and then removed. The mass measured approximately 20 cm in length and 15 cm in width. The mass was glossy fu homogeneous tissue. At this point the pelvis was packed. There were several small veins which were bleeding and these were clipped. The iliac vein was visualized. It appeared to be without evidence of any injury. The pelvis was then irrigated. There was no significant bleeding seen. Surgicel was placed in the pelvic abdomen where the mass was originally found. The met's the mesentery of the colon was visualized and this was without evidence of any bleeding. The rectum appeared normal without any evidence of any significant serosal tears. At this point the abdomen was closed the fascia was closed with looped #1 PDS suture. The skin was closed with evonne. Patient was sent to recovery room stable condition.
[2017-01-04 20:15] LABS: Glucose,Whole Blood 105 mg/dL (75-99)
[2017-01-04] MEDS: KETOROLAC 30 MG/ML 1 ML VIAL IVP SCH (21:05)
[2017-01-04] MEDS: ATORVASTATIN 20 MG TAB PO SCH (21:18)
[2017-01-04] MEDS: LISINOPRIL 5 MG TAB PO SCH (21:18)
[2017-01-04] MEDS ORDERED: SODIUM CHLORIDE 0.9% 1,000 ML IV ONE (22:48)
[2017-01-04 23:40] LABS: CH 27.4; CHCM 32.4; HCT 28.2 % (34.0-46.0); HDW 3.15; Hypochromasia Slight; MCH 27.7 pg (25.0-35.0); MCHC 32.7 g/dL (31.0-37.0); MCV 84.7 fL (80.0-100.0); Mean Platelet Volume 6.8; RBC 3.33 m/uL (3.80-5.40); RDW 13.1 % (11.5-15.5); WBC 8.4 k/uL (3.8-10.6)
[2017-01-04 23:53] LABS: HGB 9.2 gm/dL (11.4-16.0)
[2017-01-05] MEDS: LACTATED RINGERS 1,000 ML IV SCH (00:13)
[2017-01-05] MEDS: KETOROLAC 30 MG/ML 1 ML VIAL IVP SCH ×5 (04:18→23:32)
[2017-01-05] MEDS ORDERED: diphenhydrAMINE 50 MG/ML 1 ML VIAL IVP STA (05:24)
[2017-01-05 06:41] LABS: Basophils % (A) 0 %; CHCM 32.5; Eosinophils % (A) 0 %; HCT 29.3 % (34.0-46.0); HDW 3.16; HGB 9.3 gm/dL (11.4-16.0); Hypochromasia Slight; Luc # (Auto) 0.03; Luc % (Auto) 0; Lymphocytes # (A) 0.4 k/uL (1.0-4.8); Lymphocytes % (A) 6 %; MCH 27.6 pg (25.0-35.0); MCHC 31.9 g/dL (31.0-37.0); MCV 86.5 fL (80.0-100.0); Monocytes # (A) 0.3 k/uL (0-1.0); Monocytes % (A) 5 %; Neutrophils % (A) 88 %; RBC 3.38 m/uL (3.80-5.40); RDW 13.5 % (11.5-15.5); WBC 6.9 k/uL (3.8-10.6); WBC (Perox) 7.41
[2017-01-05 06:57] LABS: ALT 22 U/L (9-52); AST 20 U/L (14-36); Alkaline Phosphatase 40 U/L (38-126); Anion Gap 11 mmol/L; Blood Urea Nitrogen 21 mg/dL (7-17); Calcium 7.5 mg/dL (8.4-10.2); Carbon Dioxide 18 mmol/L (22-30); Chloride 112 mmol/L (98-107); Glucose 122 mg/dL (74-99); Non-African American GFR(MDRD) >60 (>60 ml/min/1.73 sqM); Potassium 4.8 mmol/L (3.5-5.1); Sodium 141 mmol/L (137-145); Total Bilirubin 0.7 mg/dL (0.2-1.3); Total Protein 4.5 g/dL (6.3-8.2)
[2017-01-05 07:48] LABS: Glucose,Whole Blood 112 mg/dL (75-99)
--- NOTE | 2017-01-05 08:27 | P.CNPUL ---
History of Present Illness Consult date: 01/05/17 Chief complaint: Pelvic mass History of present illness: The patient is a 56-year-old 3 para 2012 who was initially admitted to the hospital complaining of difficulty urinating and increasing abdominal pain. She had previously been treated for urinary tract infection and has had microscopic hematuria in the past which has not lead to any solid diagnoses. After evaluation the emergency room and catheterization of the bladder for 1300 mL of urine, she is admitted to the hospital. The patient was also having difficulty in passing bowel movements and constipation secondary to bowel obstruction Zosyn from the pelvic mass. She underwent computed tomography scan which demonstrates a large 14 x 9 cm solid-appearing mass occupying the pelvis reportedly above the rectum and below the bladder. The patient has undergone total abdominal hysterectomy and bilateral salpingo- oophorectomy in October 2008. A son all this, the patient was taken to the operating room yesterday for exploratory nephrotomy and the patient was found to have a pelvic mass that was outside the mesentery of the colon. The mass was visualized and it was glossy inhomogeneous. The mass was bluntly dissected away from the pelvic sidewall and from the mesentery:. There were several small mesenteric veins of the colon that were bleeding and these were ligated. The mass was then dissected down to the pelvis. The mass itself was completely mobilized. It was around 20 x 15 cm in size. There was glossy, today and homogenous. Postop, the patient got moved to the intensive care unit for further monitoring. Her morning hemoglobin is at 9.3. Morning white cell count is at 6.9. Renal function is within normal limits. The patient is receiving IV fluids is in the form of normal saline today to 1 25 mL an hour. The patient is also receiving epidural PEEP is a cane and Dilaudid for pain control. No ongoing pain issues for now. No nausea. No vomiting. No change in mental status. No respiratory distress. Review of Systems All systems: negative Constitutional: Denies chills, Denies fever Eyes: denies blurred vision, denies pain Ears, nose, mouth and throat: Denies headache, Denies sore throat Cardiovascular: Denies chest pain, Denies shortness of breath Respiratory: Denies cough Gastrointestinal: Reports abdominal pain, Reports constipation, Denies diarrhea , Denies nausea, Denies vomiting Genitourinary: Reports dysuria, Reports hematuria Musculoskeletal: Denies myalgias Integumentary: Denies pruritus, Denies rash Neurological: Denies numbness, Denies weakness Psychiatric: Denies anxiety, Denies depression Endocrine: Denies fatigue, Denies weight change Past Medical History Past Medical History: Asthma, Diabetes Mellitus, Fibromyalgia, GERD/Reflux, Hypertension, Osteoarthritis (OA) Additional Past Medical History / Comment(s): kidney stone History of Any Multi-Drug Resistant Organisms: None Reported Past Surgical History: Adenoidectomy, Appendectomy, Section, Hysterectomy, Orthopedic Surgery, Tonsillectomy Additional Past Surgical History / Comment(s): kidney stent, D&C, hysterectomy, right lateral salpingo-oophorectomy Past Anesthesia/Blood Transfusion Reactions: Postoperative Nausea & Vomiting ( PONV) Past Psychological History: No Psychological Hx Reported Smoking Status: Never smoker Past Alcohol Use History: None Reported Past Drug Use History: None Reported - Past Family History Mother Family Medical History: Cancer Additional Family Medical History / Comment(s): eye, heart disease Father Additional Family Medical History / Comment(s): ALS Medications and Allergies Home Medications Medication Instructions Recorded Confirmed Type ALPRAZolam [Xanax] 0.25 mg PO Q6H PRN 12/31/16 12/31/16 History Albuterol Sulfate [Proair Hfa] 2 puff INHALATION RT-Q6H PR 12/31/16 12/31/16 History Aspirin EC [Ecotrin Low Dose] 81 mg PO [facility] 12/31/16 12/31/16 History Atorvastatin [Lipitor] 20 mg PO 12/31/16 12/31/16 History Canagliflozin [Invokana] 300 mg PO [facility] 12/31/16 12/31/16 History Dulaglutide [Trulicity] 0.75 mg SQ 12/31/16 12/31/16 History Enalapril [Vasotec] 2.5 mg PO 12/31/16 12/31/16 History Ergocalciferol [Vitamin D2] 50,000 unit PO 12/31/16 12/31/16 History Famotidine [Pepcid] 20 mg PO 12/31/16 12/31/16 History Fenofibrate [Lofibra] 160 mg PO 12/31/16 12/31/16 History Gabapentin [Gralise] 600 mg PO 12/31/16 12/31/16 History Ibuprofen [Motrin] 200 mg PO Q6HR PRN 12/31/16 12/31/16 History Ibuprofen [Motrin] 400 mg PO Q6HR PRN 12/31/16 12/31/16 History Ibuprofen [Motrin] 600 mg PO Q6HR PRN 12/31/16 12/31/16 History Insulin Glargine,Hum.rec.anlog 20 units SQ HS 12/31/16 12/31/16 History [Toujeo Solostar] Insulin Glargine,Hum.rec.anlog 80 units SQ QAM 12/31/16 12/31/16 History [Toujeo Solostar] Insulin Glulisine [Apidra] 15 unit SQ HS 12/31/16 12/31/16 History Insulin Glulisine [Apidra] 35 unit SQ BID 12/31/16 12/31/16 History Insulin Glulisine [Apidra] 40 unit SQ W/BRKFST 12/31/16 12/31/16 History Insulin Glulisine [Apidra] See Protocol SQ TID 12/31/16 12/31/16 History Loratadine [Claritin] 10 mg PO QAM 12/31/16 12/31/16 History Metoprolol Tartrate [Lopressor] 25 mg PO BID 12/31/16 12/31/16 History Minivelle Patch 1 patch TRANSDERM TUFR 12/31/16 12/31/16 History Montelukast [Singulair] 10 mg PO HS 12/31/16 12/31/16 History Sennosides [Senokot] 8.6 mg PO BID PRN 12/31/16 12/31/16 History metFORMIN HCL ER [Glucophage Xr] 500 mg PO BID 12/31/16 12/31/16 History traMADol HCL [traMADol HCL ER] 200 mg PO QAM 12/31/16 12/31/16 History Allergies Allergy/AdvReac Type Severity Reaction Status Date / Time Penicillins Allergy Dyspnea/Rolando Verified 12/31/16 15:47 h Sulfa (Sulfonamide Allergy Unknown Verified 12/31/16 15:47 Antibiotics) Childhood artificial sweetner Allergy Severe Rash/Hives Uncoded 12/31/16 17:36 Physical Exam Vitals: Vital Signs Temp Pulse Pulse Pulse Pulse Resp BP 01/05/17 07:00 81 15 01/05/17 06:50 87 16 01/05/17 06:40 90 21 01/05/17 06:30 93 16 01/05/17 06:20 80 15 01/05/17 06:17 99.0 F 82 14 86/48 01/05/17 06:10 82 12 01/05/17 06:00 84 14 86/48 01/05/17 05:50 83 14 01/05/17 05:40 78 11 L 01/05/17 05:30 78 11 L 01/05/17 05:20 81 11 L 01/05/17 05:10 84 11 L 01/05/17 05:00 85 16 88/50 01/05/17 04:50 91 27 H 70/41 01/05/17 04:40 81 12 70/37 01/05/17 04:30 83 13 80/39 01/05/17 04:20 85 11 L 81/40 01/05/17 04:00 99.6 F 86 14 88/48 01/05/17 03:57 99.6 F 89 14 73/42 01/05/17 03:27 99.5 F 97 14 80/43 01/05/17 03:17 98.9 F 97 14 80/43 01/05/17 03:00 92 15 75/43 01/05/17 02:00 97 14 74/41 01/05/17 01:00 94 14 82/46 01/05/17 00:00 98.7 F 83 12 81/45 01/04/17 23:00 74 12 71/43 01/04/17 22:58 78 13 71/43 01/04/17 22:00 76 12 93/51 01/04/17 21:00 98.7 F 90 15 99/45 01/04/17 20:19 73 01/04/17 19:30 67 18 01/04/17 19:15 71 18 01/04/17 19:02 68 18 01/04/17 18:45 69 18 01/04/17 18:30 64 18 01/04/17 18:15 60 18 01/04/17 18:02 56 L 01/04/17 17:45 54 L 18 01/04/17 17:30 53 L 18 01/04/17 17:13 99.5 F 59 L 16 01/04/17 15:10 63 01/04/17 14:20 73 01/04/17 13:24 97.8 F 71 01/04/17 13:15 98.6 F 71 16 01/04/17 08:35 97.4 F L 74 16 BP BP Pulse Ox 01/05/17 07:00 94 L 01/05/17 06:50 93 L 01/05/17 06:40 94 L 01/05/17 06:30 94 L 01/05/17 06:20 94 L 01/05/17 06:17 94 L 01/05/17 06:10 93 L 01/05/17 06:00 94 L 01/05/17 05:50 94 L 01/05/17 05:40 94 L 01/05/17 05:30 94 L 01/05/17 05:20 94 L 01/05/17 05:10 94 L 01/05/17 05:00 94 L 01/05/17 04:50 94 L 01/05/17 04:40 94 L 01/05/17 04:30 94 L 01/05/17 04:20 93 L 01/05/17 04:00 93 L 01/05/17 03:57 91 L 01/05/17 03:27 92 L 01/05/17 03:17 92 L 01/05/17 03:00 91 L 01/05/17 02:00 92 L 01/05/17 01:00 92 L 01/05/17 00:00 92 L 01/04/17 23:00 01/04/17 22:58 01/04/17 22:00 01/04/17 21:00 01/04/17 20:19 01/04/17 19:30 108/55 99 01/04/17 19:15 109/58 98 01/04/17 19:02 105/59 98 01/04/17 18:45 90/53 100 01/04/17 18:30 85/42 100 01/04/17 18:15 85/48 100 01/04/17 18:02 76/43 100 01/04/17 17:45 76/40 100 01/04/17 17:30 80/44 100 01/04/17 17:13 112/58 100 01/04/17 15:10 99 01/04/17 14:20 98 01/04/17 13:24 150/69 95 01/04/17 13:15 126/70 95 01/04/17 08:35 131/70 95 Intake and Output 01/04/17 01/05/17 01/05/17 22:59 06:59 14:59 Intake Total 2879 2165 125 Output Total 880 365 35 Balance 1998 1800 90 Intake: IV 2879 1545 125 Lactated Ringers 1,000 ml 125 545 125 @ 125 mls/hr IV .Q8H ONE Rx#:[id number] Sodium Chloride 0.9% 1, 50 000 ml @ 100 mls/hr IV . Q10H MATTHEW Rx#:[id number] Sodium Chloride 0.9% 1, 1000 000 ml @ 999 mls/hr IV . Q1H1M ONE Rx#:[id number] Blood Product 620 Rc As-1 Unit 310 [id number] Output: Urine 380 365 35 Estimated Blood Loss 500 Other: Voiding Method Indwelling Catheter Weight 105.3 kg The patient appeared well nourished and normally developed. Vital signs as documented. Head exam is unremarkable. No scleral icterus or corneal arcus noted. Neck is without jugular venous distension, thyromegaly, or carotid bruits. Carotid upstrokes are brisk bilaterally. Lungs are clear to auscultation and percussion. Cardiac exam reveals the PMI to be normally sized and situated. Rhythm is regular. First and second heart sounds normal. No murmurs, rubs or gallops. Abdominal exam reveals a mid abdominal incision which is dry clean and intact. There is no evidence of any bleeding. No drains. Bowel sounds are hypoactive. No distention. No direct tenderness no rebound tenderness. No guarding.. Extremities are nonedematous and both femoral and pedal pulses are normal. Results - Laboratory Findings CBC and BMP: 01/05/17 06:25 01/05/17 06:25 Abnormal lab findings: Abnormal Labs 12/31/16 12/31/16 12/31/16 13:25 13:30 13:30 RBC Hgb Hct Lymphocytes # Chloride Carbon Dioxide BUN 18 H Glucose POC Glucose (mg/dL) Hemoglobin A1c 6.8 H Calcium Total Protein Albumin Urine Glucose (UA) 4+ H Crossmatch 12/31/16 12/31/16 01/01/17 17:44 17:57 07:35 RBC Hgb Hct Lymphocytes # Chloride Carbon Dioxide BUN Glucose POC Glucose (mg/dL) 62 L 65 L 103 H Hemoglobin A1c Calcium Total Protein Albumin Urine Glucose (UA) Crossmatch 01/01/17 01/02/17 01/03/17 17:09 20:26 05:38 RBC Hgb 10.5 L Hct 33.2 L Lymphocytes # Chloride Carbon Dioxide BUN Glucose POC Glucose (mg/dL) 118 H 107 H Hemoglobin A1c Calcium Total Protein Albumin Urine Glucose (UA) Crossmatch 01/03/17 01/03/17 01/04/17 05:38 17:37 06:34 RBC Hgb 10.9 L Hct 33.3 L Lymphocytes # Chloride 109 H Carbon Dioxide BUN 19 H Glucose POC Glucose (mg/dL) 124 H Hemoglobin A1c Calcium 8.2 L Total Protein 5.3 L Albumin 2.8 L Urine Glucose (UA) Crossmatch 01/04/17 01/04/17 01/04/17 09:10 20:13 23:25 RBC 3.33 L Hgb 9.2 L D Hct 28.2 L Lymphocytes # Chloride Carbon Dioxide BUN Glucose POC Glucose (mg/dL) 105 H Hemoglobin A1c Calcium Total Protein Albumin Urine Glucose (UA) Crossmatch See Detail 01/05/17 01/05/17 01/05/17 06:25 06:25 07:48 RBC 3.38 L Hgb 9.3 L Hct 29.3 L Lymphocytes # 0.4 L Chloride 112 H Carbon Dioxide 18 L BUN 21 H Glucose 122 H POC Glucose (mg/dL) 112 H Hemoglobin A1c Calcium 7.5 L Total Protein 4.5 L Albumin 2.2 L Urine Glucose (UA) Crossmatch Assessment and Plan Plan: Assessment 1 large pelvic mass/solid tumor causing mechanical obstruction with secondary constipation and urinary retention. The patient is status post expiratory laparotomy and excision of a pelvic mass and she is postop day #1. 2 abdominal pain currently on an epidural repeat a cane and Dilaudid for pain control 3 urinary retention, resolved post Martel catheter insertion and the patient is producing adequate urine output 4 postoperative anemia status post respiratory noted units of packed RBC and hemoglobin is above 9 5 diabetes mellitus 6 bronchial asthma currently inactive in stable 7 hyperlipidemia 8 history of nephrolithiasis/kidney stones 9 previous hysterectomy and bilateral salpingo-oophorectomy 10 hypertension PLAN Continue postoperative care. Continue fluid resuscitation with 1 25 mL an hour of normal saline. Monitor urine output. Lovenox for DVT prophylaxis. The patient is on clear liquid diet. The patient is on sliding scale insulin for blood sugar control. The patient is on IV Protonix. Hemodynamically stable. Continue pain control with epidural Dilaudid. Provide the patient incentive spirometer. Albuterol neb last treatment was on acid basis every 4-6 hours. Keep the patient ICU for another 24 hours. Watch for any up in hemoglobin or bleeding. We'll follow. Further recommendations are to follow based on the pathologic findings on the pelvic mass.
--- NOTE | 2017-01-05 08:34 | P.PN ---
Subjective Principal diagnosis: Pelvic tumor This a 56-year-old female who is postoperative day 1 from exploratory laparotomy and excision of a large pelvic tumor. The tumor measured approximately 6 x 5". Patient was sent to the ICU for recovery last night. Patient has some venous oozing from the tumor bed. The tumor was attached to the retroperitoneum and sacral area. Patient has been relatively hemodynamic stable overnight. She did receive a fluid bolus and 1 unit of packed red cells. She has minimal complaints of pain. She's had good urinary output overnight. Objective - Vital Signs Vital signs: Vital Signs Temp 99.0 F 01/05/17 06:17 Pulse 81 01/05/17 07:00 Resp 15 01/05/17 07:00 BP 86/48 01/05/17 06:17 Pulse Ox 94 L 01/05/17 07:00 Intake & Output 01/04/17 01/05/17 01/05/17 18:59 06:59 18:59 Intake Total 2904 2340 125 Output Total 1600 445 35 Balance 1304 1895 90 Weight 105.3 kg Intake: IV 2904 1720 125 Lactated Ringers 1,000 ml 670 125 @ 125 mls/hr IV .Q8H ONE Rx#:[id number] Sodium Chloride 0.9% 1, 50 000 ml @ 100 mls/hr IV . Q10H [facility] Rx#:[id number] Sodium Chloride 0.9% 1, 1000 000 ml @ 999 mls/hr IV . Q1H1M ONE Rx#:[id number] Blood Product 620 Rc As-1 Unit 310 [id number] Output: Urine 1100 445 35 Estimated Blood Loss 500 Other: Voiding Method Indwelling Catheter Indwelling Catheter - Constitutional General appearance: Present: average body habitus, cooperative - Cardiovascular Rhythm: regular - Gastrointestinal Gastrointestinal Comment(s): Abdomen soft. Low midline incision is clean dry and intact. - Labs CBC & Chem 7: 01/05/17 06:25 01/05/17 06:25 Labs: Abnormal Lab Results - Last 24 Hours (Table) 01/04/17 01/04/17 01/04/17 Range/Units 09:10 20:13 23:25 RBC 3.33 L (3.80-5.40) m/uL Hgb 9.2 L D (11.4-16.0) gm/dL Hct 28.2 L (34.0-46.0) % Lymphocytes # (1.0-4.8) k/uL Chloride (98-107) mmol/L Carbon Dioxide (22-30) mmol/L BUN (7-17) mg/dL Glucose (74-99) mg/dL POC Glucose (mg/dL) 105 H (75-99) mg/dL Calcium (8.4-10.2) mg/dL Total Protein (6.3-8.2) g/dL Albumin (3.5-5.0) g/dL Crossmatch See Detail 01/05/17 01/05/17 01/05/17 Range/Units 06:25 06:25 07:48 RBC 3.38 L (3.80-5.40) m/uL Hgb 9.3 L (11.4-16.0) gm/dL Hct 29.3 L (34.0-46.0) % Lymphocytes # 0.4 L (1.0-4.8) k/uL Chloride 112 H (98-107) mmol/L Carbon Dioxide 18 L (22-30) mmol/L BUN 21 H (7-17) mg/dL Glucose 122 H (74-99) mg/dL POC Glucose (mg/dL) 112 H (75-99) mg/dL Calcium 7.5 L (8.4-10.2) mg/dL Total Protein 4.5 L (6.3-8.2) g/dL Albumin 2.2 L (3.5-5.0) g/dL Crossmatch Assessment and Plan Plan: Status post excision of large pelvic tumor. Patient will start on clear liquids today. Her hemoglobin will be observed. She'll remain in the ICU today.
[2017-01-05] MEDS: INSULIN LISPRO (humaLOG) 300 UNIT/3 ML VIAL SQ SCH ×4 (09:49→21:20)
[2017-01-05] MEDS: METOPROLOL TARTRATE 25 MG TAB PO SCH ×2 (10:05→21:20)
[2017-01-05] MEDS: ENOXAPARIN 40 MG/0.4 ML SYRINGE SQ SCH (10:09)
[2017-01-05] MEDS: PANTOPRAZOLE 40 MG/10 ML VIAL IV SCH (10:09)
--- NOTE | 2017-01-05 11:01 | P.PN ---
Progress Note - Text Date: 01/05/2017 Time: 717 The patient is status post, exploratory laparotomy postoperative day number, 1 The patient has no complaints of nausea vomiting or headache. The patient does not complain of any lower extremity numbness or weakness. The epidural is running at 6 mL per hour. The epidural will be maintained and adjusted as needed.
--- NOTE | 2017-01-05 11:53 | CDI ---
In responding to this query, please exercise your independent professional judgment. The [facility] Coding Staff and Clinical Documentation Specialists appreciate your assistance in clarifying documentation, maintaining compliance with coding guidelines, accurately documenting patients condition and capturing severity of illness. The fact that a question is asked does not imply that any particular answer is desired or expected. Communication forms are a method of clarifying documentation and are not made part of the Legal Health Record. Thank you in advance for your clarification. Last Revision, May 2015 Samina Hall [address] [place] [address] Documentation Clarification Form Date: 01/05/2017 11:40:00 AM From: Eboni Duncan CCS, CCDS Admit Date: 12/31/2016 3:07:00 PM Patient Name: Alexandra Mcrae Visit Number: [id number] Discharge Date: Dr. Linda Seymour and Prema Painter, ACCIDENT EXAMINER: A diagnosis of anemia lacks specificity to accurately reflect your patients severity of condition and clarification is needed. Patient history/risk factors: Patient was admitted with constipation & difficulty with urination, found to have large pelvic mass, is status post an exploratory laparotomy with excision of pelvic mass, pathology pending. Clinical Indicators: Postoperatively admitted to ICU for monitoring, received IV fluid bolus and 1 unit PRBCs. Hemoglobin: 13.1 pre-op. 9.3 postop Hematocrit: 41.1 pre-op 29.3 postop Treatment: Blood transfusion, IV fluids & IV fluid bolus, H&H, ICU monitoring postoperatively. In order to capture the severity of condition, please clarify the type of anemia and etiology if known: Acute blood loss anemia Acute on chronic blood loss anemia Chronic blood loss anemia Unable to determine Other, please specify Also, was the patient's anemia an expected or unexpected outcome of the surgery? Please document in your progress notes and discharge summary in order to capture severity of illness and risk of mortality. Include clinical findings that support your diagnosis. FYI: Press F11 to launch patient chart. Place X here if this finding has no clinical significance, is not applicable or if you are not able to provide any additional documentation. Thank You. CATRINA
[2017-01-05 13:24] LABS: Glucose,Whole Blood 133 mg/dL (75-99)
[2017-01-05] MEDS: ONDANSETRON 4 MG/2 ML VIAL IVP PRN (15:37)
--- NOTE | 2017-01-05 18:19 | P.PN ---
Subjective Principal diagnosis: Alexandra is a 56-year-old female, postop day #1, abdominal laparotomy for pelvic tumor, pathology is currently still pending Patient status post total abdominal hysterectomy bilateral salpingo- oophorectomy several years ago, who was admitted with the complaint of urinary retention, constipation, stopped a #1 the procedure was abdominal laparotomy for abdominal tumor. Unusual in nature, this is a large very glossy tumor seated between the colon and the bladder the tumor turned out to be in the knees or the colon or in the bladder but lying completely between them pathology is pending. Patient is otherwise doing well sitting up in the chair when I saw her visiting with her material control associate . Objective - Vital Signs Vital signs: Vital Signs Temp 98.5 F 01/05/17 08:00 Pulse 85 01/05/17 16:30 Resp 11 L 01/05/17 11:30 BP 89/52 01/05/17 16:30 Pulse Ox 94 L 01/05/17 16:00 Intake & Output 01/04/17 01/05/17 01/05/17 18:59 06:59 18:59 Intake Total 2904 2340 1250 Output Total 1600 445 535 Balance 1304 1895 715 Weight 105.3 kg 105.3 kg Intake: IV 2904 1720 625 Lactated Ringers 1,000 ml 670 625 @ 125 mls/hr IV .Q8H ONE Rx#:[id number] Sodium Chloride 0.9% 1, 50 000 ml @ 100 mls/hr IV . Q10H [facility] Rx#:[id number] Sodium Chloride 0.9% 1, 1000 000 ml @ 999 mls/hr IV . Q1H1M ONE Rx#:[id number] Intake, IV Titration 625 Amount Lactated Ringers 1,000 ml 625 @ 125 mls/hr IV .Q8H ONE Rx#:[id number] Blood Product 620 Rc As-1 Unit 310 [id number] Output: Urine 1100 445 535 Estimated Blood Loss 500 Other: Voiding Method Indwelling Catheter Indwelling Catheter Indwelling Catheter - Exam General: [Patient awake, alert and oriented times 3. Patient in no acute distress.] HEENT: [PERRL. EOMI. No pharyngeal erythema or exudate.] Neck: [No adenopathy.] Cardiac: [Heart regular in rate and rhythm. No S3. No S4. No clicks, rubs. No murmur.] Lungs: [Clear to auscultation bilaterally.] Abdomen: [No mass. No organomegaly. Bowel sounds minimal, midline incision dry and healing mild fili-incisional tenderness Mild pelvic pain, with pelvic mass Extremes: [No edema no cyanosis no claudication normal pulses] : Indwelling Martel catheter present Musculoskeletal: [No joint erythema, edema or tenderness.] Skin: [No rash.] Neurologic: [No lateralizing deficits. CN II - XII grossly intact.] Lymphatic: [No adenopathy.] - Labs CBC & Chem 7: 01/05/17 06:25 01/05/17 06:25 Labs: Abnormal Lab Results - Last 24 Hours (Table) 01/04/17 01/04/17 01/04/17 Range/Units 09:10 20:13 23:25 RBC 3.33 L (3.80-5.40) m/uL Hgb 9.2 L D (11.4-16.0) gm/dL Hct 28.2 L (34.0-46.0) % Lymphocytes # (1.0-4.8) k/uL Chloride (98-107) mmol/L Carbon Dioxide (22-30) mmol/L BUN (7-17) mg/dL Glucose (74-99) mg/dL POC Glucose (mg/dL) 105 H (75-99) mg/dL Calcium (8.4-10.2) mg/dL Total Protein (6.3-8.2) g/dL Albumin (3.5-5.0) g/dL Crossmatch See Detail 01/05/17 01/05/17 01/05/17 Range/Units 06:25 06:25 07:48 RBC 3.38 L (3.80-5.40) m/uL Hgb 9.3 L (11.4-16.0) gm/dL Hct 29.3 L (34.0-46.0) % Lymphocytes # 0.4 L (1.0-4.8) k/uL Chloride 112 H (98-107) mmol/L Carbon Dioxide 18 L (22-30) mmol/L BUN 21 H (7-17) mg/dL Glucose 122 H (74-99) mg/dL POC Glucose (mg/dL) 112 H (75-99) mg/dL Calcium 7.5 L (8.4-10.2) mg/dL Total Protein 4.5 L (6.3-8.2) g/dL Albumin 2.2 L (3.5-5.0) g/dL Crossmatch /03/16 Range/Units 13:21 RBC (3.80-5.40) m/uL Hgb (11.4-16.0) gm/dL Hct (34.0-46.0) % Lymphocytes # (1.0-4.8) k/uL Chloride (98-107) mmol/L Carbon Dioxide (22-30) mmol/L BUN (7-17) mg/dL Glucose (74-99) mg/dL POC Glucose (mg/dL) 133 H (75-99) mg/dL Calcium (8.4-10.2) mg/dL Total Protein (6.3-8.2) g/dL Albumin (3.5-5.0) g/dL Crossmatch Assessment and Plan (1) Pelvic mass Narrative/Plan: Postop day #1. Laparotomy for pelvic mass pathology pending Status: Acute (2) Urinary retention Narrative/Plan: Patient currently has indwelling Martel urine clear Status: Acute Plan: Pain management with opiates Further orders to follow tumor markers were unremarkable
[2017-01-05 18:50] LABS: Glucose,Whole Blood 117 mg/dL (75-99)
[2017-01-05 21:19] LABS: Glucose,Whole Blood 120 mg/dL (75-99)
[2017-01-05] MEDS: ATORVASTATIN 20 MG TAB PO SCH (21:19)
[2017-01-05] MEDS: LISINOPRIL 5 MG TAB PO SCH (21:20)
[2017-01-06 05:10] LABS: CH 27.9; CHCM 32.6; HDW 3.34; Hypochromasia Slight; MCH 27.3 pg (25.0-35.0); MCHC 31.8 g/dL (31.0-37.0); Mean Platelet Volume 7.4; RBC 2.91 m/uL (3.80-5.40); RDW 14.1 % (11.5-15.5); WBC 5.5 k/uL (3.8-10.6)
[2017-01-06 05:25] LABS: Anion Gap 5 mmol/L; Blood Urea Nitrogen 24 mg/dL (7-17); Calcium 7.8 mg/dL (8.4-10.2); Carbon Dioxide 24 mmol/L (22-30); Chloride 108 mmol/L (98-107); Glucose 115 mg/dL (74-99); Magnesium 2.1 mg/dL (1.6-2.3); Non-African American GFR(MDRD) >60 (>60 ml/min/1.73 sqM); Phosphorous 2.1 mg/dL (2.5-4.5); Potassium 3.9 mmol/L (3.5-5.1); Sodium 137 mmol/L (137-145)
[2017-01-06] MEDS: KETOROLAC 30 MG/ML 1 ML VIAL IVP SCH ×2 (05:27→11:58)
[2017-01-06] MEDS: LACTATED RINGERS 1,000 ML IV SCH ×3 (07:03→22:23)
[2017-01-06 07:14] LABS: Glucose,Whole Blood 117 mg/dL (75-99)
[2017-01-06] MEDS: INSULIN LISPRO (humaLOG) 300 UNIT/3 ML VIAL SQ SCH ×4 (07:43→21:01)
[2017-01-06] MEDS: METOPROLOL TARTRATE 25 MG TAB PO SCH ×2 (07:47→21:00)
[2017-01-06] MEDS: PANTOPRAZOLE 40 MG/10 ML VIAL IV SCH (08:15)
[2017-01-06] MEDS: ENOXAPARIN 40 MG/0.4 ML SYRINGE SQ SCH (08:15)
[2017-01-06] MEDS: ONDANSETRON 4 MG/2 ML VIAL IVP PRN (08:30)
--- NOTE | 2017-01-06 09:43 | P.PN ---
Progress Note - Text 0730 Anesthesia POD 2. Status Post exploratory laparotomy under general endotracheal anesthesia with an epidrual catheter placed at T12 for post surgical pain releif. VAS (0, 3) with Bupivicaine 0.1 % and Dilaudid 20 mcg / cc running at 6 cc / hr. Lower extremity strength (4/4). Mild sedation. Site looks OK.
[2017-01-06 12:01] LABS: Glucose,Whole Blood 161 mg/dL (75-99)
--- NOTE | 2017-01-06 13:25 | P.PN ---
Subjective The patient is a 56-year-old 3 para 2013 who was initially admitted to the hospital complaining of difficulty urinating and increasing abdominal pain. She had previously been treated for urinary tract infection and has had microscopic hematuria in the past which has not lead to any solid diagnoses. After evaluation the emergency room and catheterization of the bladder for 1300 mL of urine, she is admitted to the hospital. The patient was also having difficulty in passing bowel movements and constipation secondary to bowel obstruction Zosyn from the pelvic mass. She underwent computed tomography scan which demonstrates a large 14 x 9 cm solid-appearing mass occupying the pelvis reportedly above the rectum and below the bladder. The patient has undergone total abdominal hysterectomy and bilateral salpingo- oophorectomy in October 2008. A son all this, the patient was taken to the operating room yesterday for exploratory nephrotomy and the patient was found to have a pelvic mass that was outside the mesentery of the colon. The mass was visualized and it was glossy inhomogeneous. The mass was bluntly dissected away from the pelvic sidewall and from the mesentery:. There were several small mesenteric veins of the colon that were bleeding and these were ligated. The mass was then dissected down to the pelvis. The mass itself was completely mobilized. It was around 20 x 15 cm in size. There was glossy, today and homogenous. Postop, the patient got moved to the intensive care unit for further monitoring. Her morning hemoglobin is at 9.3. Morning white cell count is at 6.9. Renal function is within normal limits. The patient is receiving IV fluids is in the form of normal saline today to 1 25 mL an hour. The patient is also receiving epidural PEEP is a cane and Dilaudid for pain control. No ongoing pain issues for now. No nausea. No vomiting. No change in mental status. No respiratory distress. On 01/06/2017, the patient is doing well. The patient is postop day #2. She has no specific complaints. She is tolerating clear liquid diet. No abdominal distention. No nausea or vomiting. No chest pain or shortness of breath. No fever chills or night sweats. Surgical wound site is dry clean and intact. The patient has adequate bowel sounds. No bowel movements yet. Hemodynamically stable. Pain is under good control as the patient is receiving epidural bupivacaine with Dilaudid. Objective - Vital Signs Vital signs: Vital Signs Temp 97.9 F 01/06/17 13:08 Pulse 74 01/06/17 13:08 Resp 20 01/06/17 13:08 BP 114/66 01/06/17 13:08 Pulse Ox 96 01/06/17 13:08 Intake & Output 01/05/17 01/06/17 01/06/17 18:59 06:59 18:59 Intake Total 1500 1375 1370 Output Total 685 725 260 Balance 486 750 6950 Weight 105.3 kg 106.3 kg 106.3 kg Intake: IV 875 1375 1060 Lactated Ringers 1,000 ml 625 1375 @ 125 mls/hr IV .Q8H ONE Rx#:[id number] Lactated Ringers 1,000 ml 750 @ 125 mls/hr IV .Q8H [facility] Rx#:[id number] PRBC 310 Sodium Chloride 0.9% 1, 250 000 ml @ 999 mls/hr IV . Q1H1M ONE Rx#:[id number] Intake, IV Titration 625 Amount Lactated Ringers 1,000 ml 625 @ 125 mls/hr IV .Q8H ONE Rx#:[id number] Blood Product 310 Rc As-1 Unit 310 [id number] Output: Urine 685 725 260 Other: Voiding Method Indwelling Catheter Indwelling Catheter Indwelling Catheter - Exam The patient appeared well nourished and normally developed. Vital signs as documented. Head exam is unremarkable. No scleral icterus or corneal arcus noted. Neck is without jugular venous distension, thyromegaly, or carotid bruits. Carotid upstrokes are brisk bilaterally. Lungs are clear to auscultation and percussion. Cardiac exam reveals the PMI to be normally sized and situated. Rhythm is regular. First and second heart sounds normal. No murmurs, rubs or gallops. Abdominal exam reveals a mid abdominal incision which is dry clean and intact. There is no evidence of any bleeding. No drains. Bowel sounds are hypoactive. No distention. No direct tenderness no rebound tenderness. No guarding.. Extremities are nonedematous and both femoral and pedal pulses are normal. - Labs CBC & Chem 7: 01/06/17 04:53 01/06/17 04:53 Labs: Abnormal Lab Results - Last 24 Hours (Table) 01/04/17 01/05/17 01/05/17 Range/Units 09:10 13:21 18:48 RBC (3.80-5.40) m/uL Hgb (11.4-16.0) gm/dL Hct (34.0-46.0) % Chloride (98-107) mmol/L BUN (7-17) mg/dL Glucose (74-99) mg/dL POC Glucose (mg/dL) 133 H 117 H (75-99) mg/dL Calcium (8.4-10.2) mg/dL Phosphorus (2.5-4.5) mg/dL Crossmatch See Detail 01/05/17 01/06/17 01/06/17 Range/Units 21:17 04:53 04:53 RBC 2.91 L (3.80-5.40) m/uL Hgb 8.0 L (11.4-16.0) gm/dL Hct 25.0 L (34.0-46.0) % Chloride 108 H (98-107) mmol/L BUN 24 H (7-17) mg/dL Glucose 115 H (74-99) mg/dL POC Glucose (mg/dL) 120 H (75-99) mg/dL Calcium 7.8 L (8.4-10.2) mg/dL Phosphorus 2.1 L (2.5-4.5) mg/dL Crossmatch 01/06/17 01/06/17 Range/Units 07:12 11:59 RBC (3.80-5.40) m/uL Hgb (11.4-16.0) gm/dL Hct (34.0-46.0) % Chloride (98-107) mmol/L BUN (7-17) mg/dL Glucose (74-99) mg/dL POC Glucose (mg/dL) 117 H 161 H (75-99) mg/dL Calcium (8.4-10.2) mg/dL Phosphorus (2.5-4.5) mg/dL Crossmatch Assessment and Plan Plan: Assessment 1 large pelvic mass/solid tumor causing mechanical obstruction with secondary constipation and urinary retention. The patient is status post expiratory laparotomy and excision of a pelvic mass and she is postop day #2. 2 abdominal pain currently on an epidural repeat a cane and Dilaudid for pain control 3 urinary retention, resolved post Martel catheter insertion and the patient is producing adequate urine output 4 postoperative anemia status post respiratory noted units of packed RBC and hemoglobin is above 9 5 diabetes mellitus 6 bronchial asthma currently inactive in stable 7 hyperlipidemia 8 history of nephrolithiasis/kidney stones 9 previous hysterectomy and bilateral salpingo-oophorectomy 10 hypertension PLAN Continue postoperative care. She is doing extremely well. Pain is under good control. We'll gradually wean down the epidural medication. Anesthesia on the case. Continue using incentive spirometer. Hemoglobin stable at 8. Awaiting pathologic findings from the abdominal mass. Try to set up on a chair and ambulate if possible. She can be potentially moved to a surgical floor for further monitoring.
--- NOTE | 2017-01-06 15:42 | P.PN ---
Subjective Principal diagnosis: Alexandra is a 56-year-old female, postop day #2, abdominal laparotomy for pelvic tumor, pathology is currently still pending Patient status post total abdominal hysterectomy bilateral salpingo- oophorectomy several years ago, who was admitted with the complaint of urinary retention, constipation, stopped a #1 the procedure was abdominal laparotomy for abdominal tumor. Unusual in nature, this is a large very glossy tumor seated between the colon and the bladder the tumor turned out to be or the colon or in the bladder but lying completely between them pathology is pending. Patient is otherwise doing well sitting up in the chair when I saw her, Objective - Vital Signs Vital signs: Vital Signs Temp 97.9 F 01/06/17 13:08 Pulse 68 01/06/17 15:00 Resp 12 01/06/17 15:00 BP 108/66 01/06/17 15:00 Pulse Ox 97 01/06/17 15:00 Intake & Output 01/05/17 01/06/17 01/06/17 18:59 06:59 18:59 Intake Total 1500 1375 1745 Output Total 685 725 395 Balance 511 646 6047 Weight 105.3 kg 106.3 kg 106.3 kg Intake: IV 875 1375 1435 Lactated Ringers 1,000 ml 625 1375 @ 125 mls/hr IV .Q8H ONE Rx#:[id number] Lactated Ringers 1,000 ml 1125 @ 125 mls/hr IV .Q8H [facility] Rx#:[id number] PRBC 310 Sodium Chloride 0.9% 1, 250 000 ml @ 999 mls/hr IV . Q1H1M ONE Rx#:[id number] Intake, IV Titration 625 Amount Lactated Ringers 1,000 ml 625 @ 125 mls/hr IV .Q8H ONE Rx#:[id number] Blood Product 310 Rc As-1 Unit 310 [id number] Output: Urine 685 725 395 Other: Voiding Method Indwelling Catheter Indwelling Catheter Indwelling Catheter - Exam General: [Patient awake, alert and oriented times 3. Patient in no acute distress.] HEENT: [PERRL. EOMI. No pharyngeal erythema or exudate.] Neck: [No adenopathy.] Cardiac: [Heart regular in rate and rhythm. No S3. No S4. No clicks, rubs. No murmur.] Lungs: [Clear to auscultation bilaterally.] Abdomen: [No mass. No organomegaly. Bowel sounds minimal, midline incision dry and healing mild fili-incisional tenderness Mild pelvic pain, with pelvic mass Extremes: [No edema no cyanosis no claudication normal pulses] : Indwelling Martel catheter present Musculoskeletal: [No joint erythema, edema or tenderness.] Skin: [No rash.] Neurologic: [No lateralizing deficits. CN II - XII grossly intact.] Lymphatic: [No adenopathy.] - Labs CBC & Chem 7: 01/06/17 04:53 01/06/17 04:53 Labs: Abnormal Lab Results - Last 24 Hours (Table) 01/04/17 01/05/17 01/05/17 Range/Units 09:10 18:48 21:17 RBC (3.80-5.40) m/uL Hgb (11.4-16.0) gm/dL Hct (34.0-46.0) % Chloride (98-107) mmol/L BUN (7-17) mg/dL Glucose (74-99) mg/dL POC Glucose (mg/dL) 117 H 120 H (75-99) mg/dL Calcium (8.4-10.2) mg/dL Phosphorus (2.5-4.5) mg/dL Crossmatch See Detail 01/06/17 01/06/17 01/06/17 Range/Units 04:53 04:53 07:12 RBC 2.91 L (3.80-5.40) m/uL Hgb 8.0 L (11.4-16.0) gm/dL Hct 25.0 L (34.0-46.0) % Chloride 108 H (98-107) mmol/L BUN 24 H (7-17) mg/dL Glucose 115 H (74-99) mg/dL POC Glucose (mg/dL) 117 H (75-99) mg/dL Calcium 7.8 L (8.4-10.2) mg/dL Phosphorus 2.1 L (2.5-4.5) mg/dL Crossmatch 01/06/17 Range/Units 11:59 RBC (3.80-5.40) m/uL Hgb (11.4-16.0) gm/dL Hct (34.0-46.0) % Chloride (98-107) mmol/L BUN (7-17) mg/dL Glucose (74-99) mg/dL POC Glucose (mg/dL) 161 H (75-99) mg/dL Calcium (8.4-10.2) mg/dL Phosphorus (2.5-4.5) mg/dL Crossmatch Assessment and Plan (1) Pelvic mass Narrative/Plan: Postop day #2. Laparotomy for pelvic mass pathology pending Status: Acute (2) Urinary retention Narrative/Plan: Patient currently has indwelling Martel urine clear Status: Acute Plan: Pain management with opiates Further orders to follow tumor markers were unremarkable
--- NOTE | 2017-01-06 16:05 | P.PN ---
Progress Note - Text The patient is doing well. She is resting comfortably in chair. On exam her vital signs are stable. Her abdomen soft. Her incision is clean dry and intact. I had a discussion with Dr. Pena. 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 The official pathology is still pending. Patient will have her diet advanced. Hopefully she has the ICU tomorrow.
[2017-01-06 17:12] LABS: Glucose,Whole Blood 97 mg/dL (75-99)
[2017-01-06] MEDS: HYDROmorphone 1 MG/ML 1 ML SYRINGE IVP PRN (17:19)
[2017-01-06 20:59] LABS: Glucose,Whole Blood 109 mg/dL (75-99)
[2017-01-06] MEDS: ATORVASTATIN 20 MG TAB PO SCH (20:59)
[2017-01-06] MEDS: LISINOPRIL 5 MG TAB PO SCH (21:00)
[2017-01-06 21:18] LABS: CH 28.5; CHCM 33.8; HDW 3.47; MCH 28.3 pg (25.0-35.0); MCHC 33.4 g/dL (31.0-37.0); MCV 84.9 fL (80.0-100.0); Mean Platelet Volume 6.7; Poikilocytosis Slight; RBC 3.41 m/uL (3.80-5.40); RDW 14.1 % (11.5-15.5); WBC 5.2 k/uL (3.8-10.6)
[2017-01-06 21:24] LABS: HGB 9.7 gm/dL (11.4-16.0)
[2017-01-07 08:19] LABS: Glucose,Whole Blood 103 mg/dL (75-99)
[2017-01-07] MEDS: ONDANSETRON 4 MG/2 ML VIAL IVP PRN ×2 (08:21→14:02)
[2017-01-07] MEDS: PANTOPRAZOLE 40 MG/10 ML VIAL IV SCH (08:23)
[2017-01-07] MEDS: ENOXAPARIN 40 MG/0.4 ML SYRINGE SQ SCH (08:23)
[2017-01-07] MEDS: METOPROLOL TARTRATE 25 MG TAB PO SCH ×2 (08:24→20:55)
[2017-01-07] MEDS: INSULIN LISPRO (humaLOG) 300 UNIT/3 ML VIAL SQ SCH ×4 (08:24→22:22)
[2017-01-07 09:24] LABS: Anion Gap 6 mmol/L; Blood Urea Nitrogen 16 mg/dL (7-17); Calcium 8.1 mg/dL (8.4-10.2); Carbon Dioxide 25 mmol/L (22-30); Chloride 106 mmol/L (98-107); Glucose 102 mg/dL (74-99); Non-African American GFR(MDRD) >60 (>60 ml/min/1.73 sqM); Sodium 137 mmol/L (137-145)
--- NOTE | 2017-01-07 10:03 | P.PN ---
Subjective Principal diagnosis: Patient feels better today her pain is improved. She is having flatus. White blood cell count 5.2. Hemoglobin 9.7. Objective - Vital Signs Vital signs: Vital Signs Temp 97.9 F 01/07/17 08:00 Pulse 66 01/07/17 09:00 Resp 15 01/07/17 09:00 BP 116/63 01/07/17 09:00 Pulse Ox 97 01/07/17 09:00 Intake & Output 01/06/17 01/07/17 01/07/17 18:59 06:59 18:59 Intake Total 2213.1 1200 350 Output Total 595 865 180 Balance 1618.1 335 170 Weight 106.3 kg 110.4 kg Intake: IV 1810 1200 225 Lactated Ringers 1,000 ml 1500 1200 225 @ 125 mls/hr IV .Q8H [facility] Rx#:[id number] PRBC 310 Intake, IV Titration 93.1 Amount Bupivacaine (Pf) 0.5% 50 93.1 ml Hydromorphone (Pf) 5 mg In Sodium Chloride 0.9 % 200 ml @ Per Protocol EPIDURAL .Q0M PRN Rx#: [id number] Oral 125 Blood Product 310 Rc As-1 Unit 310 [id number] Output: Urine 595 865 180 Other: Voiding Method Indwelling Catheter Indwelling Catheter Indwelling Catheter - Exam Abdomen: Soft, nondistended, incision clean and dry, minimal tenderness - Labs CBC & Chem 7: 01/06/17 21:00 01/07/17 08:48 Labs: Abnormal Lab Results - Last 24 Hours (Table) 01/04/17 01/06/17 01/06/17 Range/Units 09:10 11:59 20:58 RBC (3.80-5.40) m/uL Hgb (11.4-16.0) gm/dL Hct (34.0-46.0) % Creatinine (0.52-1.04) mg/dL Glucose (74-99) mg/dL POC Glucose (mg/dL) 161 H 109 H (75-99) mg/dL Calcium (8.4-10.2) mg/dL Crossmatch See Detail 01/06/17 01/07/17 01/07/17 Range/Units 21:00 08:17 08:48 RBC 3.41 L (3.80-5.40) m/uL Hgb 9.7 L D (11.4-16.0) gm/dL Hct 29.0 L (34.0-46.0) % Creatinine 0.51 L (0.52-1.04) mg/dL Glucose 102 H (74-99) mg/dL POC Glucose (mg/dL) 103 H (75-99) mg/dL Calcium 8.1 L (8.4-10.2) mg/dL Crossmatch Assessment and Plan (1) Pelvic mass Narrative/Plan: Continue liquid diet. May transfer out of the ICU. Gradually increase activity. Status: Acute
[2017-01-07] MEDS: LACTATED RINGERS 1,000 ML IV SCH ×3 (10:17→16:50)
--- NOTE | 2017-01-07 10:41 | P.PN ---
Subjective Principal diagnosis: Alexandra is a 56-year-old female, postop day #3, abdominal laparotomy for pelvic tumor, pathology is currently still pending Patient is awake alert, vital signs are stable patient is up in chair, passing flatus, tolerating clear liquids and Jell-O. Her glucometer checks have been between 97 and 103 him a still holding metformin. Objective - Vital Signs Vital signs: Vital Signs Temp 97.9 F 01/07/17 08:00 Pulse 68 01/07/17 10:00 Resp 14 01/07/17 10:00 BP 110/65 01/07/17 10:00 Pulse Ox 95 01/07/17 10:00 Intake & Output 01/06/17 01/07/17 01/07/17 18:59 06:59 18:59 Intake Total 2213.1 1200 600 Output Total 595 865 280 Balance 1618.1 335 320 Weight 106.3 kg 110.4 kg Intake: IV 1810 1200 375 Lactated Ringers 1,000 ml 1500 1200 375 @ 125 mls/hr IV .Q8H [facility] Rx#:[id number] PRBC 310 Intake, IV Titration 93.1 Amount Bupivacaine (Pf) 0.5% 50 93.1 ml Hydromorphone (Pf) 5 mg In Sodium Chloride 0.9 % 200 ml @ Per Protocol EPIDURAL .Q0M PRN Rx#: [id number] Oral 225 Blood Product 310 Rc As-1 Unit 310 [id number] Output: Urine 595 865 280 Other: Voiding Method Indwelling Catheter Indwelling Catheter Indwelling Catheter - Exam General: [Patient awake, alert and oriented times 3. Patient in no acute distress.] HEENT: [PERRL. EOMI. No pharyngeal erythema or exudate.] Neck: [No adenopathy.] Cardiac: [Heart regular in rate and rhythm. No S3. No S4. No clicks, rubs. No murmur.] Lungs: [Clear to auscultation bilaterally.] Abdomen: [No mass. No organomegaly. Bowel sounds minimal, midline incision dry and healing mild fili-incisional tenderness Passing flatus, patient complains of mild nausea Mild pelvic pain, with pelvic mass Extremes: [No edema no cyanosis no claudication normal pulses] : Indwelling Martel catheter present Musculoskeletal: [No joint erythema, edema or tenderness.] Skin: [No rash.] Neurologic: [No lateralizing deficits. CN II - XII grossly intact.] Lymphatic: [No adenopathy.] - Labs CBC & Chem 7: 01/06/17 21:00 01/07/17 08:48 Labs: Abnormal Lab Results - Last 24 Hours (Table) 01/04/17 01/06/17 01/06/17 Range/Units 09:10 11:59 20:58 RBC (3.80-5.40) m/uL Hgb (11.4-16.0) gm/dL Hct (34.0-46.0) % Creatinine (0.52-1.04) mg/dL Glucose (74-99) mg/dL POC Glucose (mg/dL) 161 H 109 H (75-99) mg/dL Calcium (8.4-10.2) mg/dL Crossmatch See Detail 01/06/17 01/07/17 01/07/17 Range/Units 21:00 08:17 08:48 RBC 3.41 L (3.80-5.40) m/uL Hgb 9.7 L D (11.4-16.0) gm/dL Hct 29.0 L (34.0-46.0) % Creatinine 0.51 L (0.52-1.04) mg/dL Glucose 102 H (74-99) mg/dL POC Glucose (mg/dL) 103 H (75-99) mg/dL Calcium 8.1 L (8.4-10.2) mg/dL Crossmatch Assessment and Plan (1) Pelvic mass Narrative/Plan: Postop day #2. Laparotomy for pelvic mass pathology pending Status: Acute (2) Urinary retention Narrative/Plan: Patient currently has indwelling Martel urine clear Status: Acute Plan: Pain management with opiates Further orders to follow tumor markers were unremarkable Time with Patient: Less than 30
[2017-01-07 12:43] LABS: Glucose,Whole Blood 108 mg/dL (75-99)
--- NOTE | 2017-01-07 14:12 | P.PN ---
Subjective The patient is a 56-year-old 3 para 2013 who was initially admitted to the hospital complaining of difficulty urinating and increasing abdominal pain. She had previously been treated for urinary tract infection and has had microscopic hematuria in the past which has not lead to any solid diagnoses. After evaluation the emergency room and catheterization of the bladder for 1300 mL of urine, she is admitted to the hospital. The patient was also having difficulty in passing bowel movements and constipation secondary to bowel obstruction Zosyn from the pelvic mass. She underwent computed tomography scan which demonstrates a large 14 x 9 cm solid-appearing mass occupying the pelvis reportedly above the rectum and below the bladder. The patient has undergone total abdominal hysterectomy and bilateral salpingo- oophorectomy in October 2008. A son all this, the patient was taken to the operating room yesterday for exploratory nephrotomy and the patient was found to have a pelvic mass that was outside the mesentery of the colon. The mass was visualized and it was glossy inhomogeneous. The mass was bluntly dissected away from the pelvic sidewall and from the mesentery:. There were several small mesenteric veins of the colon that were bleeding and these were ligated. The mass was then dissected down to the pelvis. The mass itself was completely mobilized. It was around 20 x 15 cm in size. There was glossy, today and homogenous. Postop, the patient got moved to the intensive care unit for further monitoring. Her morning hemoglobin is at 9.3. Morning white cell count is at 6.9. Renal function is within normal limits. The patient is receiving IV fluids is in the form of normal saline today to 1 25 mL an hour. The patient is also receiving epidural PEEP is a cane and Dilaudid for pain control. No ongoing pain issues for now. No nausea. No vomiting. No change in mental status. No respiratory distress. On 01/06/2017, the patient is doing well. The patient is postop day #2. She has no specific complaints. She is tolerating clear liquid diet. No abdominal distention. No nausea or vomiting. No chest pain or shortness of breath. No fever chills or night sweats. Surgical wound site is dry clean and intact. The patient has adequate bowel sounds. No bowel movements yet. Hemodynamically stable. Pain is under good control as the patient is receiving epidural bupivacaine with Dilaudid. The patient is seen again today 01/07/2017 in follow-up in the intensive care unit. This is postoperative day #3. She is awake and alert in no acute distress. She had a good night and did get some rest. Her pain is well controlled per epidural. She denies any worsening shortness of breath, cough or congestion. She has been afebrile. Hemodynamically stable. Maintaining good O2 saturations in the upper 90s on 2 L/m per nasal cannula. Her abdominal dressing is dry and intact. Objective - Vital Signs Vital signs: Vital Signs Temp 98.3 F 01/07/17 12:00 Pulse 57 L 01/07/17 12:00 Resp 18 01/07/17 12:00 BP 117/65 01/07/17 12:00 Pulse Ox 97 01/07/17 12:00 Intake & Output 01/06/17 01/07/17 01/07/17 18:59 06:59 18:59 Intake Total 2213.1 1200 750 Output Total 595 865 430 Balance 1618.1 335 320 Weight 106.3 kg 110.4 kg Intake: IV 1810 1200 525 Lactated Ringers 1,000 ml 1500 1200 525 @ 75 mls/hr IV .[id number] [facility] Rx#:[id number] PRBC 310 Intake, IV Titration 93.1 Amount Bupivacaine (Pf) 0.5% 50 93.1 ml Hydromorphone (Pf) 5 mg In Sodium Chloride 0.9 % 200 ml @ Per Protocol EPIDURAL .Q0M PRN Rx#: [id number] Oral 225 Blood Product 310 Rc As-1 Unit 310 [id number] Output: Urine 595 865 430 Other: Voiding Method Indwelling Catheter Indwelling Catheter Indwelling Catheter - Exam GENERAL EXAM: Alert, active, comfortable in no apparent distress. HEAD: Normocephalic. EYES: Normal reaction of pupils, equal size. NOSE: Clear with pink turbinates. THROAT: No erythema or exudates. NECK: No masses, no JVD. CHEST: No chest wall deformity. LUNGS: Equal air entry with no crackles, wheeze, rhonchi or dullness. CVS: S1 and S2 normal with no audible murmurs, regular rhythm. ABDOMEN: Abdominal dressing is clean dry. No hepatosplenomegaly, normal bowel sounds, no guarding or rigidity. SPINE: No scoliosis or deformity SKIN: No rashes CENTRAL NERVOUS SYSTEM: No focal deficits, tone is normal in all 4 extremities. Extremities: There is no significant peripheral edema. No clubbing, no cyanosis. Peripheral pulses are intact. - Labs CBC & Chem 7: 01/06/17 21:00 01/07/17 08:48 Labs: Abnormal Lab Results - Last 24 Hours (Table) 01/06/17 01/06/17 01/07/17 Range/Units 20:58 21:00 08:17 RBC 3.41 L (3.80-5.40) m/uL Hgb 9.7 L D (11.4-16.0) gm/dL Hct 29.0 L (34.0-46.0) % Creatinine (0.52-1.04) mg/dL Glucose (74-99) mg/dL POC Glucose (mg/dL) 109 H 103 H (75-99) mg/dL Calcium (8.4-10.2) mg/dL 01/07/17 01/07/17 Range/Units 08:48 12:41 RBC (3.80-5.40) m/uL Hgb (11.4-16.0) gm/dL Hct (34.0-46.0) % Creatinine 0.51 L (0.52-1.04) mg/dL Glucose 102 H (74-99) mg/dL POC Glucose (mg/dL) 108 H (75-99) mg/dL Calcium 8.1 L (8.4-10.2) mg/dL Assessment and Plan Plan: Assessment 1 large pelvic mass/solid tumor causing mechanical obstruction with secondary constipation and urinary retention. The patient is status post expiratory laparotomy and excision of a pelvic mass and she is postop day #3. 2 abdominal pain currently on an epidural and Dilaudid for pain control 3 urinary retention, resolved post Martel catheter insertion and the patient is producing adequate urine output 4 postoperative anemia status post respiratory noted units of packed RBC and hemoglobin is above 9 5 diabetes mellitus 6 bronchial asthma currently inactive in stable 7 hyperlipidemia 8 history of nephrolithiasis/kidney stones 9 previous hysterectomy and bilateral salpingo-oophorectomy 10 hypertension PLAN The patient was seen and evaluated by Dr. Seymour. She is stable from the pulmonary and critical care standpoint. She could be transferred out of the intensive care unit today. She is again encouraged regarding the increased use of the incentive spirometer and cough and deep breathing exercises. We'll await final pathology report. We'll continue to follow.
[2017-01-07] MEDS: SODIUM CHLORIDE 0.9% 1,000 ML IV SCH (16:54)
[2017-01-07 17:48] LABS: Glucose,Whole Blood 96 mg/dL (75-99)
--- NOTE | 2017-01-07 18:22 | P.PN ---
Progress Note - Text 01/07 7818 56-year-old female status post exploratory lap by . Epidural solution running at 5 mL an hour, with a VAS of 5. No motor or sensory deficits noted. Able to ambulate today. Epidural DC'd nurse informed.
[2017-01-07] MEDS: ATORVASTATIN 20 MG TAB PO SCH (20:53)
[2017-01-07] MEDS: LISINOPRIL 5 MG TAB PO SCH (20:56)
[2017-01-07 21:03] LABS: Glucose,Whole Blood 123 mg/dL (75-99)
[2017-01-07] MEDS: HYDROmorphone 1 MG/ML 1 ML SYRINGE IVP PRN (23:47)
[2017-01-08] MEDS: LACTATED RINGERS 1,000 ML IV SCH ×2 (03:01→15:02)
[2017-01-08] MEDS: HYDROmorphone 1 MG/ML 1 ML SYRINGE IVP PRN ×5 (05:09→19:26)
[2017-01-08 07:09] LABS: Glucose,Whole Blood 98 mg/dL (75-99)
[2017-01-08] MEDS: INSULIN LISPRO (humaLOG) 300 UNIT/3 ML VIAL SQ SCH ×4 (08:30→21:18)
[2017-01-08] MEDS: ENOXAPARIN 40 MG/0.4 ML SYRINGE SQ SCH (08:31)
[2017-01-08] MEDS: PANTOPRAZOLE 40 MG/10 ML VIAL IV SCH (08:31)
[2017-01-08] MEDS: METOPROLOL TARTRATE 25 MG TAB PO SCH ×2 (08:31→21:18)
--- NOTE | 2017-01-08 10:58 | P.PN ---
Progress Note - Text Mrs. Mcrae had a Martel catheter placed at the time of admission for urinary retention. It is now apparent that the urinary retention was the result of the pelvic mass. It would best be reasonable to remove the Martel catheter when no longer needed. Postvoid residuals should be monitored using the Bladder Scan, and the catheter should be replaced if she is unable to void or empties her bladder incompletely.
[2017-01-08 11:37] LABS: Glucose,Whole Blood 97 mg/dL (75-99)
--- NOTE | 2017-01-08 12:38 | P.PN ---
Subjective Principal diagnosis: Patient feels better today her pain is improved. She is having flatus. White blood cell count 5.2. Hemoglobin 9.7. Patient complaints of bloating today. She is passing flatus. Epidural removed. Mild abdominal discomfort. Objective - Vital Signs Vital signs: Vital Signs Temp 98.6 F 01/08/17 08:17 Pulse 70 01/08/17 08:17 Resp 18 01/08/17 08:17 BP 142/77 01/08/17 08:17 Pulse Ox 94 L 01/08/17 09:36 Intake & Output 01/07/17 01/08/17 01/08/17 18:59 06:59 18:59 Intake Total 878.333 328.567 Output Total 430 1800 Balance 448.333 -1471.433 Intake: IV 525 Lactated Ringers 1,000 ml 525 @ 75 mls/hr IV .[id number] [facility] Rx#:[id number] Intake, IV Titration 128.333 28.567 Amount Bupivacaine (Pf) 0.5% 50 128.333 28.567 ml Hydromorphone (Pf) 5 mg In Sodium Chloride 0.9 % 200 ml @ Per Protocol EPIDURAL .Q0M PRN Rx#: [id number] Oral 225 300 Output: Urine 430 1800 Other: Voiding Method Indwelling Catheter Indwelling Catheter - Exam Abdomen: Soft, mild distention, incision clean and dry, bowel sounds present, mild tenderness - Labs CBC & Chem 7: 01/06/17 21:00 01/07/17 08:48 Labs: Abnormal Lab Results - Last 24 Hours (Table) 01/07/17 01/07/17 Range/Units 12:41 20:57 POC Glucose (mg/dL) 108 H 123 H (75-99) mg/dL Assessment and Plan (1) Pelvic mass Narrative/Plan: Will increase activity level. Add Toradol for pain control. Await biopsy results. Status: Acute
--- NOTE | 2017-01-08 13:02 | P.PN ---
Subjective The patient is a 56-year-old 3 para 2013 who was initially admitted to the hospital complaining of difficulty urinating and increasing abdominal pain. She had previously been treated for urinary tract infection and has had microscopic hematuria in the past which has not lead to any solid diagnoses. After evaluation the emergency room and catheterization of the bladder for 1300 mL of urine, she is admitted to the hospital. The patient was also having difficulty in passing bowel movements and constipation secondary to bowel obstruction Zosyn from the pelvic mass. She underwent computed tomography scan which demonstrates a large 14 x 9 cm solid-appearing mass occupying the pelvis reportedly above the rectum and below the bladder. The patient has undergone total abdominal hysterectomy and bilateral salpingo- oophorectomy in October 2008. A son all this, the patient was taken to the operating room yesterday for exploratory nephrotomy and the patient was found to have a pelvic mass that was outside the mesentery of the colon. The mass was visualized and it was glossy inhomogeneous. The mass was bluntly dissected away from the pelvic sidewall and from the mesentery:. There were several small mesenteric veins of the colon that were bleeding and these were ligated. The mass was then dissected down to the pelvis. The mass itself was completely mobilized. It was around 20 x 15 cm in size. There was glossy, today and homogenous. Postop, the patient got moved to the intensive care unit for further monitoring. Her morning hemoglobin is at 9.3. Morning white cell count is at 6.9. Renal function is within normal limits. The patient is receiving IV fluids is in the form of normal saline today to 1 25 mL an hour. The patient is also receiving epidural PEEP is a cane and Dilaudid for pain control. No ongoing pain issues for now. No nausea. No vomiting. No change in mental status. No respiratory distress. On 01/06/2017, the patient is doing well. The patient is postop day #2. She has no specific complaints. She is tolerating clear liquid diet. No abdominal distention. No nausea or vomiting. No chest pain or shortness of breath. No fever chills or night sweats. Surgical wound site is dry clean and intact. The patient has adequate bowel sounds. No bowel movements yet. Hemodynamically stable. Pain is under good control as the patient is receiving epidural bupivacaine with Dilaudid. The patient is seen again today 01/07/2017 in follow-up in the intensive care unit. This is postoperative day #3. She is awake and alert in no acute distress. She had a good night and did get some rest. Her pain is well controlled per epidural. She denies any worsening shortness of breath, cough or congestion. She has been afebrile. Hemodynamically stable. Maintaining good O2 saturations in the upper 90s on 2 L/m per nasal cannula. Her abdominal dressing is dry and intact. On , the patient is postop day #4 and the patient is doing well. Using incentive spirometer. No respiratory difficulties. On oxygen at 2 L/m nasal cannula saturations around 90%. No new complaints otherwise for now. Diet is being gradually advanced. The pathologic findings are not out yet although suspect sarcoma. Objective - Vital Signs Vital signs: Vital Signs Temp 98.6 F 01/08/17 08:17 Pulse 70 01/08/17 08:17 Resp 18 01/08/17 08:17 BP 142/77 01/08/17 08:17 Pulse Ox 94 L 01/08/17 09:36 Intake & Output 01/07/17 01/08/17 01/08/17 18:59 06:59 18:59 Intake Total 878.333 328.567 Output Total 430 1800 Balance 448.333 -1471.433 Intake: IV 525 Lactated Ringers 1,000 ml 525 @ 75 mls/hr IV .[id number] [facility] Rx#:[id number] Intake, IV Titration 128.333 28.567 Amount Bupivacaine (Pf) 0.5% 50 128.333 28.567 ml Hydromorphone (Pf) 5 mg In Sodium Chloride 0.9 % 200 ml @ Per Protocol EPIDURAL .Q0M PRN Rx#: [id number] Oral 225 300 Output: Urine 430 1800 Other: Voiding Method Indwelling Catheter Indwelling Catheter - Exam GENERAL EXAM: Alert, active, comfortable in no apparent distress. HEAD: Normocephalic. EYES: Normal reaction of pupils, equal size. NOSE: Clear with pink turbinates. THROAT: No erythema or exudates. NECK: No masses, no JVD. CHEST: No chest wall deformity. LUNGS: Equal air entry with no crackles, wheeze, rhonchi or dullness. CVS: S1 and S2 normal with no audible murmurs, regular rhythm. ABDOMEN: Abdominal dressing is clean dry. No hepatosplenomegaly, normal bowel sounds, no guarding or rigidity. SPINE: No scoliosis or deformity SKIN: No rashes CENTRAL NERVOUS SYSTEM: No focal deficits, tone is normal in all 4 extremities. Extremities: There is no significant peripheral edema. No clubbing, no cyanosis. Peripheral pulses are intact. - Labs CBC & Chem 7: 01/06/17 21:00 01/07/17 08:48 Labs: Abnormal Lab Results - Last 24 Hours (Table) 01/07/17 Range/Units 20:57 POC Glucose (mg/dL) 123 H (75-99) mg/dL Assessment and Plan Plan: Assessment 1 large pelvic mass/solid tumor causing mechanical obstruction with secondary constipation and urinary retention. The patient is status post expiratory laparotomy and excision of a pelvic mass and she is postop day #4. 2 abdominal pain currently on an epidural catheter discontinued. The patient is on good pain control. 3 urinary retention, resolved post Martel catheter insertion and the patient is producing adequate urine output 4 postoperative anemia and hemoglobin is above 9.7 5 diabetes mellitus 6 bronchial asthma currently inactive in stable 7 hyperlipidemia 8 history of nephrolithiasis/kidney stones 9 previous hysterectomy and bilateral salpingo-oophorectomy 10 hypertension PLAN Continue postoperative care. Patient is stable. Recovering well. Awaiting pathologic findings. 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 Encourage ambulation. Encourage use of incentive spirometer.
--- NOTE | 2017-01-08 13:04 | P.PN ---
Subjective Principal diagnosis: Alexandra is a 56-year-old female, postop day #3, abdominal laparotomy for pelvic tumor, pathology is currently still pending Patient is awake alert, vital signs are stable patient is up in chair, passing flatus, tolerating clear liquids and Jell-O. Her glucometer checks have been between 97 and 103 him a still holding metformin. Objective - Vital Signs Vital signs: Vital Signs Temp 98.6 F 01/08/17 08:17 Pulse 70 01/08/17 08:17 Resp 18 01/08/17 08:17 BP 142/77 01/08/17 08:17 Pulse Ox 94 L 01/08/17 09:36 Intake & Output 01/07/17 01/08/17 01/08/17 18:59 06:59 18:59 Intake Total 878.333 328.567 Output Total 430 1800 Balance 448.333 -1471.433 Intake: IV 525 Lactated Ringers 1,000 ml 525 @ 75 mls/hr IV .[id number] [facility] Rx#:[id number] Intake, IV Titration 128.333 28.567 Amount Bupivacaine (Pf) 0.5% 50 128.333 28.567 ml Hydromorphone (Pf) 5 mg In Sodium Chloride 0.9 % 200 ml @ Per Protocol EPIDURAL .Q0M PR[facility] Rx#: [id number] Oral 225 300 Output: Urine 430 1800 Other: Voiding Method Indwelling Catheter Indwelling Catheter - Exam General: [Patient awake, alert and oriented times 3. Patient in no acute distress.] HEENT: [PERRL. EOMI. No pharyngeal erythema or exudate.] Neck: [No adenopathy.] Cardiac: [Heart regular in rate and rhythm. No S3. No S4. No clicks, rubs. No murmur.] Lungs: [Clear to auscultation bilaterally.] Abdomen: [No mass. No organomegaly. Bowel sounds minimal, midline incision dry and healing mild fili-incisional tenderness Passing flatus, patient complains of mild nausea Mild pelvic pain, with pelvic mass Extremes: [No edema no cyanosis no claudication normal pulses] : Indwelling Martel catheter present Musculoskeletal: [No joint erythema, edema or tenderness.] Skin: [No rash.] Neurologic: [No lateralizing deficits. CN II - XII grossly intact.] Lymphatic: [No adenopathy.] - Labs CBC & Chem 7: 01/06/17 21:00 01/07/17 08:48 Labs: Abnormal Lab Results - Last 24 Hours (Table) 01/07/17 Range/Units 20:57 POC Glucose (mg/dL) 123 H (75-99) mg/dL Assessment and Plan (1) Pelvic mass Narrative/Plan: Postop day #2. Laparotomy for pelvic mass pathology pending Status: Acute (2) Urinary retention Narrative/Plan: Patient currently has indwelling Martel urine clear Status: Acute Plan: Pain management with opiates Further orders to follow tumor markers were unremarkable
[2017-01-08] MEDS: HYDROcodone/APAP 5-325MG 1 EACH TAB PO PRN ×2 (14:06→21:18)
[2017-01-08 17:21] LABS: Glucose,Whole Blood 81 mg/dL (75-99)
[2017-01-08] MEDS: KETOROLAC 30 MG/ML 1 ML VIAL IVP SCH ×2 (17:44→23:17)
[2017-01-08 20:34] LABS: Glucose,Whole Blood 121 mg/dL (75-99)
[2017-01-08] MEDS: LISINOPRIL 5 MG TAB PO SCH (21:18)
[2017-01-08] MEDS: ATORVASTATIN 20 MG TAB PO SCH (21:18)
[2017-01-09] MEDS: HYDROmorphone 1 MG/ML 1 ML SYRINGE IVP PRN (00:42)
[2017-01-09] MEDS: HYDROcodone/APAP 5-325MG 1 EACH TAB PO PRN (04:14)
[2017-01-09] MEDS: LACTATED RINGERS 1,000 ML IV SCH ×2 (04:16→17:31)
[2017-01-09] MEDS: KETOROLAC 30 MG/ML 1 ML VIAL IVP SCH ×4 (07:33→23:35)
[2017-01-09 07:52] LABS: Glucose,Whole Blood 112 mg/dL (75-99)
[2017-01-09] MEDS: PANTOPRAZOLE 40 MG/10 ML VIAL IV SCH (08:12)
[2017-01-09] MEDS: INSULIN LISPRO (humaLOG) 300 UNIT/3 ML VIAL SQ SCH ×4 (08:12→21:11)
[2017-01-09] MEDS: ENOXAPARIN 40 MG/0.4 ML SYRINGE SQ SCH (08:12)
[2017-01-09] MEDS: METOPROLOL TARTRATE 25 MG TAB PO SCH ×2 (08:12→21:11)
[2017-01-09 11:02] VITALS: BMI 37.0
[2017-01-09 11:41] LABS: Glucose,Whole Blood 116 mg/dL (75-99)
--- NOTE | 2017-01-09 11:48 | P.PN ---
Subjective Principal diagnosis: Pelvic mass/solid tumor causing mechanical obstruction and urinary retention. Patient is status post exploratory laparotomy and excision of the pelvic mass postoperative day #5 The patient is a 56-year-old 3 para 2012 who was initially admitted to the hospital complaining of difficulty urinating and increasing abdominal pain. She had previously been treated for urinary tract infection and has had microscopic hematuria in the past which has not lead to any solid diagnoses. After evaluation the emergency room and catheterization of the bladder for 1300 mL of urine, she is admitted to the hospital. The patient was also having difficulty in passing bowel movements and constipation secondary to bowel obstruction Zosyn from the pelvic mass. She underwent computed tomography scan which demonstrates a large 14 x 9 cm solid-appearing mass occupying the pelvis reportedly above the rectum and below the bladder. The patient has undergone total abdominal hysterectomy and bilateral salpingo- oophorectomy in October 2008. A son all this, the patient was taken to the operating room yesterday for exploratory nephrotomy and the patient was found to have a pelvic mass that was outside the mesentery of the colon. The mass was visualized and it was glossy inhomogeneous. The mass was bluntly dissected away from the pelvic sidewall and from the mesentery:. There were several small mesenteric veins of the colon that were bleeding and these were ligated. The mass was then dissected down to the pelvis. The mass itself was completely mobilized. It was around 20 x 15 cm in size. There was glossy, today and homogenous. Postop, the patient got moved to the intensive care unit for further monitoring. Her morning hemoglobin is at 9.3. Morning white cell count is at 6.9. Renal function is within normal limits. The patient is receiving IV fluids is in the form of normal saline today to 1 25 mL an hour. The patient is also receiving epidural PEEP is a cane and Dilaudid for pain control. No ongoing pain issues for now. No nausea. No vomiting. No change in mental status. No respiratory distress. On 01/06/2017, the patient is doing well. The patient is postop day #2. She has no specific complaints. She is tolerating clear liquid diet. No abdominal distention. No nausea or vomiting. No chest pain or shortness of breath. No fever chills or night sweats. Surgical wound site is dry clean and intact. The patient has adequate bowel sounds. No bowel movements yet. Hemodynamically stable. Pain is under good control as the patient is receiving epidural bupivacaine with Dilaudid. The patient is seen again today 01/07/2017 in follow-up in the intensive care unit. This is postoperative day #3. She is awake and alert in no acute distress. She had a good night and did get some rest. Her pain is well controlled per epidural. She denies any worsening shortness of breath, cough or congestion. She has been afebrile. Hemodynamically stable. Maintaining good O2 saturations in the upper 90s on 2 L/m per nasal cannula. Her abdominal dressing is dry and intact. On , the patient is postop day #4 and the patient is doing well. Using incentive spirometer. No respiratory difficulties. On oxygen at 2 L/m nasal cannula saturations around 90%. No new complaints otherwise for now. Diet is being gradually advanced. The pathologic findings are not out yet although suspect sarcoma. 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 Patient is yet to be seen by oncology on consultation, and I believe the consult was initiated today. Clinically, patient seems to be doing well, her asthma seems to be stable, no cough no wheezing no shortness of breath, no significant abdominal pain. Blood sugar today is 116. Electrolytes from 2 days ago were relatively unremarkable, and renal profile was normal. Objective - Vital Signs Vital signs: Vital Signs Temp 97.6 F 01/09/17 08:13 Pulse 63 01/09/17 08:13 Resp 18 01/09/17 08:13 BP 144/74 01/09/17 08:13 Pulse Ox 91 L 01/09/17 08:13 Intake & Output 01/08/17 01/09/17 01/09/17 18:59 06:59 18:59 Intake Total 660 Output Total 2200 800 200 Balance -2200 -140 -200 Weight 110.4 kg Intake: IV 300 Lactated Ringers 1,000 ml 300 @ 75 mls/hr IV .[id number] [facility] Rx#:[id number] Oral 360 Output: Urine 2200 800 200 Other: Voiding Method Indwelling Catheter Indwelling Catheter Indwelling Catheter - Exam GENERAL EXAM: Alert, active, comfortable in no apparent distress. HEAD: Normocephalic. EYES: Normal reaction of pupils, equal size. NOSE: Clear with pink turbinates. THROAT: No erythema or exudates. NECK: No masses, no JVD. CHEST: No chest wall deformity. LUNGS: Equal air entry with no crackles, wheeze, rhonchi or dullness. CVS: S1 and S2 normal with no audible murmurs, regular rhythm. ABDOMEN: Abdominal dressing is clean dry. No hepatosplenomegaly, normal bowel sounds, no guarding or rigidity. SPINE: No scoliosis or deformity SKIN: No rashes CENTRAL NERVOUS SYSTEM: No focal deficits, tone is normal in all 4 extremities. Extremities: There is no significant peripheral edema. No clubbing, no cyanosis. Peripheral pulses are intact. - Labs CBC & Chem 7: 01/06/17 21:00 01/07/17 08:48 Labs: Abnormal Lab Results - Last 24 Hours (Table) 01/08/17 01/09/17 01/09/17 Range/Units 20:17 07:45 11:39 POC Glucose (mg/dL) 121 H 112 H 116 H (75-99) mg/dL Assessment and Plan Plan: large pelvic mass/solid tumor causing mechanical obstruction with secondary constipation and urinary retention. 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 and she is postop day #5 2 abdominal pain , resolved 3 urinary retention, resolved 4 postoperative anemia and hemoglobin is above 9.7 5 diabetes mellitus 6 bronchial asthma currently inactive in stable 7 hyperlipidemia 8 history of nephrolithiasis/kidney stones 9 previous hysterectomy and bilateral salpingo-oophorectomy 10 hypertension Recommendation: Continue present treatment plan, patient is to be seen by oncology on consultation, discussed with her the pathology report, and treatment plan regarding her sarcoma will be definitely addressed by the oncologist on the case, from our perspective, patient will be seen on a when necessary basis. Had a brief discussion with her regarding the diagnosis, and this will be further discussed by the oncologist. We'll sign off and see on when necessary basis. Time with Patient: Less than 30
[2017-01-09] MEDS: ALPRAZolam 0.25 MG TAB PO PRN (12:24)
--- NOTE | 2017-01-09 13:12 | P.PN ---
Subjective The patient is a 56-year-old white female patient well-known to me.He had been complaining of left lower quadrant pain and dysuria. She was found on KUB originally to have a nephrolithiasis and was referred to urology. For that she came in the emergency room for urinary retention. She indicated since that time and going on for about 3 weeks difficulty urinating. She had an ultrasound of her bladder previously of this. He is also been having trouble defecating. She has a history of hysterectomy and appendectomy. The ultrasound was reviewed and found a pelvic mass. A CT was done and also show this. General surgery, critical care, Gynecology, and urology Overall consult is regarding her care. She underwent a exploratory laparotomy and excision of pelvic mass on 01/05/2017. She is now postop day 5 from this excision. She is tolerating a clear liquid diet. She has minimal pain. She is passing flatus.. . Objective - Vital Signs Vital signs: Vital Signs Temp 97.6 F 01/09/17 08:13 Pulse 63 01/09/17 08:13 Resp 18 01/09/17 08:13 BP 144/74 01/09/17 08:13 Pulse Ox 91 L 01/09/17 08:13 Intake & Output 01/08/17 01/09/17 01/09/17 18:59 06:59 18:59 Intake Total 660 Output Total 2200 800 1050 Balance -2200 -140 -1050 Weight 110.4 kg Intake: IV 300 Lactated Ringers 1,000 ml 300 @ 75 mls/hr IV .[id number] [facility] Rx#:[id number] Oral 360 Output: Urine 2200 800 1050 Other: Voiding Method Indwelling Catheter Indwelling Catheter Indwelling Catheter - Exam General: The patient is awake and alert, in no distress, and does not appear acutely ill. she does appear anxious that Neck: The neck is supple, there is no thyromegaly, lymphadenopathy, tenderness or JVD. Cardiovascular: S1S2 is normal, There is a regular rate and rhythm. No murmur, rub or gallop is appreciated. Respiratory: Lungs are clear to auscultation bilaterally, respirations are non -labored, breath sounds are equal. Abdomen: Positive bowel sounds, further examination deferred due to tender Extremities: no tenderness, There is no pedal edema. Neurological: CN II-XII intact, there are no obvious motor or sensory deficits. Coordination appears grossly intact. Speech is normal. - Labs CBC & Chem 7: 01/06/17 21:00 01/07/17 08:48 Labs: Abnormal Lab Results - Last 24 Hours (Table) 01/08/17 01/09/17 01/09/17 Range/Units 20:17 07:45 11:39 POC Glucose (mg/dL) 121 H 112 H 116 H (75-99) mg/dL
[2017-01-09 17:37] LABS: Glucose,Whole Blood 121 mg/dL (75-99)
[2017-01-09 20:39] LABS: Glucose,Whole Blood 125 mg/dL (75-99)
[2017-01-09] MEDS: ATORVASTATIN 20 MG TAB PO SCH (21:11)
[2017-01-09] MEDS: LISINOPRIL 5 MG TAB PO SCH (21:11)
[2017-01-10] MEDS: ONDANSETRON 4 MG/2 ML VIAL IVP PRN ×3 (03:45→18:18)
[2017-01-10] MEDS: HYDROmorphone 1 MG/ML 1 ML SYRINGE IVP PRN ×4 (03:45→20:57)
[2017-01-10] MEDS: LACTATED RINGERS 1,000 ML IV SCH ×2 (03:51→21:03)
[2017-01-10 07:11] LABS: Glucose,Whole Blood 116 mg/dL (75-99)
[2017-01-10 07:51] LABS: Anion Gap 8 mmol/L; Blood Urea Nitrogen 8 mg/dL (7-17); Calcium 8.3 mg/dL (8.4-10.2); Carbon Dioxide 28 mmol/L (22-30); Chloride 104 mmol/L (98-107); Glucose 107 mg/dL (74-99); Non-African American GFR(MDRD) >60 (>60 ml/min/1.73 sqM); Potassium 3.9 mmol/L (3.5-5.1); Sodium 140 mmol/L (137-145)
[2017-01-10 07:54] LABS: Basophils % (A) 1 %; CH 28.5; CHCM 32.6; Eosinophils # (A) 0.2 k/uL (0-0.7); Eosinophils % (A) 3 %; HCT 30.7 % (34.0-46.0); HDW 3.24; Hypochromasia Slight; Luc # (Auto) 0.06; Luc % (Auto) 1; Lymphocytes # (A) 0.9 k/uL (1.0-4.8); Lymphocytes % (A) 19 %; MCH 28.6 pg (25.0-35.0); MCHC 32.6 g/dL (31.0-37.0); MCV 87.8 fL (80.0-100.0); Monocytes # (A) 0.3 k/uL (0-1.0); Monocytes % (A) 7 %; Neutrophils # (A) 3.1 k/uL (1.3-7.7); Neutrophils % (A) 69 %; RDW 14.6 % (11.5-15.5); WBC 4.5 k/uL (3.8-10.6); WBC (Perox) 4.73
[2017-01-10] MEDS: INSULIN LISPRO (humaLOG) 300 UNIT/3 ML VIAL SQ SCH ×4 (08:08→21:17)
[2017-01-10] MEDS: METOPROLOL TARTRATE 25 MG TAB PO SCH ×2 (08:09→21:17)
[2017-01-10] MEDS: ENOXAPARIN 40 MG/0.4 ML SYRINGE SQ SCH (08:09)
[2017-01-10] MEDS: PANTOPRAZOLE 40 MG TABLET PO SCH (08:10)
[2017-01-10] MEDS ORDERED: LORazepam 2 MG/ML SYRINGE IV STA (08:35)
--- NOTE | 2017-01-10 10:11 | P.PN ---
Subjective The patient is a 56-year-old white female patient well-known to me.He had been complaining of left lower quadrant pain and dysuria. She was found on KUB originally to have a nephrolithiasis and was referred to urology. For that she came in the emergency room for urinary retention. She indicated since that time and going on for about 3 weeks difficulty urinating. She had an ultrasound of her bladder previously of this. He is also been having trouble defecating. She has a history of hysterectomy and appendectomy. The ultrasound was reviewed and found a pelvic mass. A CT was done and also show this. General surgery, critical care, Gynecology, and urology Overall consult is regarding her care. She underwent a exploratory laparotomy and excision of pelvic mass on 01/05/2017. She is now postop day 6 from this excision. She is tolerating a clear liquid diet. She has minimal pain. She is passing flatus.. She just had a bowel movement. Pathology was reviewed and shows sarcoma Case was discussed with the oncology nurse practitioner. They're recommending [facility] sarcoma clinic as soon as possible. . Objective - Vital Signs Vital signs: Vital Signs Temp 98.3 F 01/10/17 07:26 Pulse 66 01/10/17 07:26 Resp 16 01/10/17 07:26 BP 143/70 01/10/17 07:26 Pulse Ox 94 L 01/10/17 07:26 Intake & Output 01/09/17 01/10/17 01/10/17 18:59 06:59 18:59 Intake Total 900 Output Total 1575 1500 Balance -1575 900 -1500 Weight 110.4 kg Intake: IV 900 Lactated Ringers 1,000 ml 900 @ 75 mls/hr IV .[id number] [facility] Rx#:[id number] Output: Urine 1575 1500 Other: Voiding Method Indwelling Catheter Indwelling Catheter Indwelling Catheter - Exam General: The patient is awake and alert, she is anxious and sad due to recent diagnosis. There is some denial. Further exam was deferred at this time. - Labs CBC & Chem 7: 01/10/17 07:15 01/10/17 07:15 Labs: Abnormal Lab Results - Last 24 Hours (Table) 01/09/17 01/09/17 01/09/17 Range/Units 11:39 17:33 20:37 RBC (3.80-5.40) m/uL Hgb (11.4-16.0) gm/dL Hct (34.0-46.0) % Lymphocytes # (1.0-4.8) k/uL Glucose (74-99) mg/dL POC Glucose (mg/dL) 116 H 121 H 125 H (75-99) mg/dL Calcium (8.4-10.2) mg/dL 01/10/17 01/10/17 01/10/17 Range/Units 07:06 07:15 07:15 RBC 3.50 L (3.80-5.40) m/uL Hgb 10.0 L (11.4-16.0) gm/dL Hct 30.7 L (34.0-46.0) % Lymphocytes # 0.9 L (1.0-4.8) k/uL Glucose 107 H (74-99) mg/dL POC Glucose (mg/dL) 116 H (75-99) mg/dL Calcium 8.3 L (8.4-10.2) mg/dL Assessment and Plan Plan: Assessment and plan. Pelvic mass causing bladder and bowel dysfunction now diagnosed as sarcoma, status post exploratory laparotomy and excision, postop day 6: Patient experiencing typical grief reactions, plan for [facility] referral to sarcoma clinic Blood loss anemia, postoperatively, hemoglobin 10.0 post operative pain: She has Tylenol, [place], and Dilaudid ordered Type 2 diabetes., Controlled: Continue Humalog scale. History of hypertension: She remains on lisinopril. Hyperlipidemia: Continues on atorvastatin. Anxiety: She has Xanax ordered. History of Asthma: Stable, pulmonology critical care on case DVT prophylaxis: She is on Lovenox. GI prophylaxis: He remains on Protonix I'll await on the advancement of her diet. I'll reevaluate her in the next 24 hours. Plan discharge and [facility] follow-up as soon as possible .
[2017-01-10 11:32] LABS: Glucose,Whole Blood 115 mg/dL (75-99)
[2017-01-10] MEDS: ERGOCALCIFEROL 50,000 UNIT CAP PO SCH (12:17)
--- NOTE | 2017-01-10 13:49 | P.PN ---
Progress Note - Text The patient is resting coplanar in her bed. She's had a small bowel movement and is passing flatus. On exam her vital signs are stable. Her abdomen soft. Her incision site is clean dry intact. Dilantin discussion with patient and her family regarding the pathologic diagnosis. Patient has a sarcoma. Dr. Mukherjee has been consult. We anticipate discharge home the next 24-48 hours.
--- NOTE | 2017-01-10 13:50 | P.PN ---
Progress Note - Text The patient is resting comfortably in her bed. She's had minimal oral intake today. She had sent some nausea. On exam her vital signs are stable. Her abdomen soft. Pathology is pending. The patient will continue supportive care.
[2017-01-10] MEDS ORDERED: RX INFO: IV CONTRAST WAS GIVEN 1 EACH MISC MISCELLANE PRN (15:14)
--- NOTE | 2017-01-10 16:51 | P.CONS ---
History of Present Illness - Reason for Consult Consult date: 01/10/17 retroperitoneal mass, sarcoma Requesting physician: Carlos Ling - Chief Complaint anuria - History of Present Illness Pt is a very pleasant female pt of Dr. Ling. Pt had been having increasing trouble urinating over the last month to the point where she was only able to urinate a few drops at a time, she also noted increased constipation and change in calibur of stool, denied black or bloody stool, no rectal pain. Pt was directed to hospital by PCP for further work up. CT scan reported mass posterior to rectum. Gymn examined the pt and felt that the mass was unlikely to be of [address] origin. Pt had colonoscopy which ruled out colonic mass/lesion but, showed extrinsic compression. She was taken to surgery and the mass was resected, path indicates sarcoma, final path pending, margins positive. Pt seen today post op, doing fairly well, she denied sweats, fevers, unintentional wt. loss, nausea or vomiting, no significant pain in the abdomen, some in the back, she had soft stool today. Review of Systems All systems: negative Constitutional: Reports as per HPI Past Medical History Past Medical History: Asthma, Diabetes Mellitus, Fibromyalgia, GERD/Reflux, Hypertension, Osteoarthritis (OA) Additional Past Medical History / Comment(s): kidney stone History of Any Multi-Drug Resistant Organisms: None Reported Past Surgical History: Adenoidectomy, Appendectomy, Section, Hysterectomy, Orthopedic Surgery, Tonsillectomy Additional Past Surgical History / Comment(s): kidney stent, D&C, hysterectomy, right lateral salpingo-oophorectomy Past Anesthesia/Blood Transfusion Reactions: Postoperative Nausea & Vomiting ( PONV) Past Psychological History: No Psychological Hx Reported Smoking Status: Never smoker Past Alcohol Use History: None Reported Past Drug Use History: None Reported - Past Family History Mother Family Medical History: Cancer Additional Family Medical History / Comment(s): eye, heart disease Father Additional Family Medical History / Comment(s): ALS Medications and Allergies Home Medications Medication Instructions Recorded Confirmed Type ALPRAZolam [Xanax] 0.25 mg PO Q6H PRN 12/31/16 12/31/16 History Albuterol Sulfate [Proair Hfa] 2 puff INHALATION RT-Q6H PRN 12/31/16 12/31/16 History Aspirin EC [Ecotrin Low Dose] 81 mg PO QA 12/31/16 12/31/16 History Atorvastatin [Lipitor] 20 mg PO 12/31/16 12/31/16 History Canagliflozin [Invokana] 300 mg PO QA 12/31/16 12/31/16 History Dulaglutide [Trulicity] 0.75 mg SQ 12/31/16 12/31/16 History Enalapril [Vasotec] 2.5 mg PO 12/31/16 12/31/16 History Ergocalciferol [Vitamin D2] 50,000 unit PO 12/31/16 12/31/16 History Famotidine [Pepcid] 20 mg PO 12/31/16 12/31/16 History Fenofibrate [Lofibra] 160 mg PO 12/31/16 12/31/16 History Gabapentin [Gralise] 600 mg PO 12/31/16 12/31/16 History Ibuprofen [Motrin] 200 mg PO Q6HR PRN 12/31/16 12/31/16 History Ibuprofen [Motrin] 400 mg PO Q6HR PRN 12/31/16 12/31/16 History Ibuprofen [Motrin] 600 mg PO Q6HR PRN 12/31/16 12/31/16 History Insulin Glargine,Hum.rec.anlog 20 units SQ 12/31/16 12/31/16 History [Toujeo Solostar] Insulin Glargine,Hum.rec.anlog 80 units SQ [facility] 12/31/16 12/31/16 History [Toujeo Solostar] Insulin Glulisine [Apidra] 15 unit SQ 12/31/16 12/31/16 History Insulin Glulisine [Apidra] 35 unit SQ BID 12/31/16 12/31/16 History Insulin Glulisine [Apidra] 40 unit SQ W/BRKFST 12/31/16 12/31/16 History Insulin Glulisine [Apidra] See Protocol SQ TID 12/31/16 12/31/16 History Loratadine [Claritin] 10 mg PO QAM 12/31/16 12/31/16 History Metoprolol Tartrate [Lopressor] 25 mg PO BID 12/31/16 12/31/16 History [place] Patch 1 patch TRANSDERM TUFR 12/31/16 12/31/16 History Montelukast [Singulair] 10 mg PO HS 12/31/16 12/31/16 History Sennosides [Senokot] 8.6 mg PO BID PRN 12/31/16 12/31/16 History metFORMIN HCL ER [Glucophage Xr] 500 mg PO BID 12/31/16 12/31/16 History traMADol HCL [traMADol HCL ER] 200 mg PO QAM 12/31/16 12/31/16 History Allergies Allergy/AdvReac Type Severity Reaction Status Date / Time Penicillins Allergy Dyspnea/Rolando Verified 12/31/16 15:47 h Sulfa (Sulfonamide Allergy Unknown Verified 12/31/16 15:47 Antibiotics) Childhood artificial sweetner Allergy Severe Rash/Hives Uncoded 12/31/16 17:36 Physical Exam Vitals: Vital Signs Temp Pulse Resp BP Pulse Ox 01/10/17 07:26 98.3 F 66 16 143/70 94 L 01/09/17 15:37 98.1 F 62 16 149/72 95 Intake and Output 01/09/17 01/10/17 01/10/17 22:59 06:59 14:59 Intake Total 300 600 Output Total 525 1500 Balance -225 600 -1500 Intake: IV 300 600 Lactated Ringers 1,000 ml 300 600 @ 75 mls/hr IV .[id number] [facility] Rx#:[id number] Output: Urine 525 1500 Other: Voiding Method Indwelling Catheter Indwelling Catheter Indwelling Catheter - Constitutional General appearance: cooperative, no acute distress, obese - EENT Eyes: anicteric sclerae, EOMI, PERRLA, normal appearance ENT: hearing grossly normal, normal oropharynx - Neck Neck: no lymphadenopathy - Respiratory Respiratory: bilateral: CTA - Cardiovascular Rhythm: regular Heart sounds: normal: S1, S2 leg Peripheral Edema: bilateral: None - Gastrointestinal abd binder in place, few BS noted, no unrealistic pain or hepatosplenomegaly - Integumentary Integumentary: normal - Neurologic Neurologic: CNII-XII intact - Musculoskeletal Musculoskeletal: strength equal bilaterally - Psychiatric Psychiatric: A&O x's 3, appropriate affect, intact judgment & insight Results CBC & Chem 7: 01/10/17 07:15 01/10/17 07:15 Labs: Abnormal Lab Results - Last 24 Hours (Table) 01/09/17 01/09/17 01/09/17 Range/Units 11:39 17:33 20:37 RBC (3.80-5.40) m/uL Hgb (11.4-16.0) gm/dL Hct (34.0-46.0) % Lymphocytes # (1.0-4.8) k/uL Glucose (74-99) mg/dL POC Glucose (mg/dL) 116 H 121 H 125 H (75-99) mg/dL Calcium (8.4-10.2) mg/dL 01/10/17 01/10/17 01/10/17 Range/Units 07:06 07:15 07:15 RBC 3.50 L (3.80-5.40) m/uL Hgb 10.0 L (11.4-16.0) gm/dL Hct 30.7 L (34.0-46.0) % Lymphocytes # 0.9 L (1.0-4.8) k/uL Glucose 107 H (74-99) mg/dL POC Glucose (mg/dL) 116 H (75-99) mg/dL Calcium 8.3 L (8.4-10.2) mg/dL CT scan - abdomen: report reviewed CT scan - pelvis: report reviewed Assessment and Plan (1) Sarcoma Narrative/Plan: Dr. Mukherjee discussed the biopsy findings with the patient and case was briefly discussed with Attending. [facility] for evaluation and recommendations for definitive treatment plans. Pt is ok from Oncology standpoint once cleared by Surgeon and Attending for DC. We will plan follow up as appropriate based on [facility] recommendations. Requested CT images to be copied to CD for pt to take with her for [facility] Status: Acute
[2017-01-10 17:04] LABS: Glucose,Whole Blood 121 mg/dL (75-99)
--- NOTE | 2017-01-10 18:06 | CT ---
EXAMINATION TYPE: CT chest w con DATE OF EXAM: 01/10/2017 COMPARISON: NONE HISTORY: Patient has no complaints at time of study. Patient has recently had a tumor removed from h er abd/pel. CT DLP: 575.4 mGycm Automated exposure control for dose reduction was used. CONTRAST: CT scan of the chest is performed with IV Contrast, patient injected with 100 mL of Omnipaque 300. FINDINGS: There are bilateral pleural effusions. There is no pericardial effusion. There are 1.5 cm right bronc hial lymph nodes. I see no mediastinal adenopathy. There is no evidence of aortic aneurysm or dissect ion. There is atelectasis at the lung bases. The upper lung baca are clear. I see no bony destructi ve process. There is spurring in the thoracic spine. IMPRESSION: There are bilateral pleural effusions and basilar infiltrate and atelectasis. Minimal ri ght bronchial adenopathy.
[2017-01-10 20:09] LABS: Glucose,Whole Blood 126 mg/dL (75-99)
[2017-01-10] MEDS: ALPRAZolam 0.25 MG TAB PO PRN (20:54)
[2017-01-10] MEDS: LISINOPRIL 5 MG TAB PO SCH (21:17)
[2017-01-10] MEDS: ATORVASTATIN 20 MG TAB PO SCH (21:17)
[2017-01-10 21:37] LABS: Amorphous Sediment,Urine Few /hpf; Appearance,Urine Cloudy (Clear); Bacteria,Urine Moderate /hpf; Bilirubin,Urine Negative (Negative); Glucose,Urine (UA) Negative (Negative); Ketones,Urine Negative (Negative); Leukocyte Esterase,Urine Large (Negative); Nitrite,Urine Negative (Negative); PH, Urine 7.5 (5.0-8.0); Particle Count 51351; Protein,Urine Negative (Negative); RBC,Urine 1 /hpf (0-5); UA Billing (MACRO vs. MICRO) MICRO; Urobilinogen,Urine <2.0 mg/dL (<2.0); WBC,Urine 34 /hpf (0-5)
[2017-01-11] MEDS: HYDROmorphone 1 MG/ML 1 ML SYRINGE IVP PRN (00:52)
[2017-01-11] MEDS: ALPRAZolam 0.25 MG TAB PO PRN ×2 (02:36→20:34)
[2017-01-11] MEDS: LACTATED RINGERS 1,000 ML IV SCH (07:05)
[2017-01-11 07:30] LABS: Glucose,Whole Blood 112 mg/dL (75-99)
[2017-01-11] MEDS: INSULIN LISPRO (humaLOG) 300 UNIT/3 ML VIAL SQ SCH ×5 (07:46→20:49)
[2017-01-11] MEDS: ENOXAPARIN 40 MG/0.4 ML SYRINGE SQ SCH (07:47)
[2017-01-11] MEDS: METOPROLOL TARTRATE 25 MG TAB PO SCH ×2 (07:47→20:34)
[2017-01-11] MEDS: PANTOPRAZOLE 40 MG TABLET PO SCH (07:48)
[2017-01-11] MEDS: HYDROcodone/APAP 5-325MG 1 EACH TAB PO PRN ×2 (10:02→20:34)
[2017-01-11] MEDS: ONDANSETRON 4 MG/2 ML VIAL IVP PRN ×2 (10:03→16:02)
[2017-01-11 11:42] LABS: Glucose,Whole Blood 172 mg/dL (75-99)
--- NOTE | 2017-01-11 13:28 | P.PN ---
Subjective The patient is a 56-year-old white female patient well-known to me.He had been complaining of left lower quadrant pain and dysuria. She was found on KUB originally to have a nephrolithiasis and was referred to urology. For that she came in the emergency room for urinary retention. She indicated since that time and going on for about 3 weeks difficulty urinating. She had an ultrasound of her bladder previously of this. He is also been having trouble defecating. She has a history of hysterectomy and appendectomy. The ultrasound was reviewed and found a pelvic mass. A CT was done and also show this. General surgery, critical care, Gynecology, and urology Overall consult is regarding her care. She underwent a exploratory laparotomy and excision of pelvic mass on 01/05/2017. 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 She is tolerating a full liquid diet. She has minimal pain. She is passing flatus.. She has had a bowel movement. . Objective - Vital Signs Vital signs: Vital Signs Temp 98 F 01/11/17 08:13 Pulse 69 01/11/17 08:13 Resp 16 01/11/17 08:13 BP 136/85 01/11/17 08:13 Pulse Ox 95 01/11/17 08:13 Intake & Output 01/10/17 01/11/17 01/11/17 18:59 06:59 18:59 Intake Total 2009 590 Output Total 2500 2500 Balance -2500 -490 590 Intake: Oral 2009 590 Output: Urine 2500 2500 Other: Voiding Method Indwelling Catheter Indwelling Catheter Indwelling Catheter # Voids 1 # Bowel Movements 1 - Exam General: The patient is awake and alert, in minimal distress, and does not appear acutely ill. Neck: The neck is supple, there is no thyromegaly, lymphadenopathy, tenderness or JVD. Cardiovascular: S1S2 is normal, There is a regular rate and rhythm. No murmur, rub or gallop is appreciated. Respiratory: Lungs are clear to auscultation bilaterally, respirations are non -labored, breath sounds are equal. Gastrointestinal: Soft, non-distended, non-tender abdomen without masses or organomegaly noted. There is no rebound or guarding present. Bowel sounds are unremarkable. incision sites are clean dry and intact. Musculoskeletal: Normal ROM, no tenderness, There is no pedal edema. There is no calf tenderness or swelling. No cords were appreciated. Neurological: CN II-XII intact, there are no obvious motor or sensory deficits. Coordination appears grossly intact. Speech is normal.she appears slightly sedated at this time. Skin: Skin is warm and dry and no rashes or lesions are noted. Martel to gravity shows quite a bit of contamination in the line - Labs CBC & Chem 7: 01/10/17 07:15 01/10/17 07:15 Labs: Abnormal Lab Results - Last 24 Hours (Table) 01/10/17 01/10/17 01/10/17 Range/Units 17:00 20:07 21:15 POC Glucose (mg/dL) 121 H 126 H (75-99) mg/dL Urine Appearance Cloudy H (Clear) Ur Leukocyte Esterase Large H (Negative) Urine WBC 34 H (0-5) /hpf Amorphous Sediment Few H (None) /hpf Urine Bacteria Moderate H (None) /hpf 01/11/17 01/11/17 Range/Units 07:27 11:38 POC Glucose (mg/dL) 112 H 172 H (75-99) mg/dL Urine Appearance (Clear) Ur Leukocyte Esterase (Negative) Urine WBC (0-5) /hpf Amorphous Sediment (None) /hpf Urine Bacteria (None) /hpf Microbiology - Last 24 Hours (Table) 01/10/17 21:15 Urine Culture - Preliminary Urine,Catheterized Assessment and Plan Plan: Assessment and plan. 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 History of hypertension: She remains on lisinopril. Hyperlipidemia: Continues on atorvastatin. Anxiety: She has Xanax ordered. History of Asthma: Stable, pulmonology critical care on case DVT prophylaxis: She is on Lovenox. GI prophylaxis: He remains on Protonix advance diet to regular, discontinue Martel catheter and repeat urinalysis Plan discharge in a.m.and [facility] follow-up as soon as possible .
--- NOTE | 2017-01-11 15:26 | P.PN ---
Progress Note - Text The patient slowly improving. She is having small bowel minutes. She states she feels quite weak. On exam her vital signs are stable. Her abdomen soft. Her incision sites clean dry and intact. Status post excision of sarcoma from pelvis. Patient will receive supportive care. Hopefully she will be discharged next 48 hours.
[2017-01-11 17:12] LABS: Glucose,Whole Blood 101 mg/dL (75-99)
[2017-01-11 20:05] LABS: Glucose,Whole Blood 151 mg/dL (75-99)
[2017-01-11] MEDS: LISINOPRIL 5 MG TAB PO SCH (20:34)
[2017-01-11] MEDS: ATORVASTATIN 20 MG TAB PO SCH (20:35)
[2017-01-12] MEDS: LACTATED RINGERS 1,000 ML IV SCH ×2 (04:06→11:21)
[2017-01-12] MEDS: ALPRAZolam 0.25 MG TAB PO PRN (04:06)
[2017-01-12 07:14] LABS: Glucose,Whole Blood 125 mg/dL (75-99)
[2017-01-12 07:43] VITALS: BP 150/85; PULSE 71; RESP 20; TEMP 97.8
[2017-01-12 08:06] LABS: Basophils % (A) 1 %; CH 27.9; CHCM 31.7; Eosinophils # (A) 0.3 k/uL (0-0.7); Eosinophils % (A) 5 %; HCT 36.1 % (34.0-46.0); HDW 3.32; HGB 11.6 gm/dL (11.4-16.0); Hypochromasia Slight; Luc # (Auto) 0.11; Luc % (Auto) 2; Lymphocytes # (A) 1.1 k/uL (1.0-4.8); Lymphocytes % (A) 17 %; MCH 28.5 pg (25.0-35.0); MCHC 32.1 g/dL (31.0-37.0); MCV 88.5 fL (80.0-100.0); Mean Platelet Volume 6.9; Monocytes # (A) 0.3 k/uL (0-1.0); Monocytes % (A) 5 %; Neutrophils # (A) 4.3 k/uL (1.3-7.7); Neutrophils % (A) 70 %; RBC 4.08 m/uL (3.80-5.40); RDW 14.8 % (11.5-15.5); WBC 6.1 k/uL (3.8-10.6); WBC (Perox) 6.26
[2017-01-12 08:25] LABS: Anion Gap 11 mmol/L; Blood Urea Nitrogen 5 mg/dL (7-17); Calcium 9.1 mg/dL (8.4-10.2); Carbon Dioxide 27 mmol/L (22-30); Chloride 104 mmol/L (98-107); Glucose 128 mg/dL (74-99); Non-African American GFR(MDRD) >60 (>60 ml/min/1.73 sqM); Potassium 3.8 mmol/L (3.5-5.1); Sodium 142 mmol/L (137-145)
[2017-01-12] MEDS: PANTOPRAZOLE 40 MG TABLET PO SCH (09:31)
[2017-01-12] MEDS: INSULIN LISPRO (humaLOG) 300 UNIT/3 ML VIAL SQ SCH ×3 (09:33→18:06)
[2017-01-12] MEDS: METOPROLOL TARTRATE 25 MG TAB PO SCH (09:34)
[2017-01-12] MEDS: ENOXAPARIN 40 MG/0.4 ML SYRINGE SQ SCH (09:36)
[2017-01-12] MEDS: HYDROcodone/APAP 5-325MG 1 EACH TAB PO PRN ×2 (09:44→14:55)
--- NOTE | 2017-01-12 10:46 | P.PN ---
Subjective Principal diagnosis: Sarcoma Pt seen today in follow up. She is tolerating oral intake, no nausea, no unrealistic abd pain, cramping, she has flatus and small, brown BM. She is starting to feel weak. No other c/o. Objective - Vital Signs Vital signs: Vital Signs Temp 97.8 F 01/12/17 07:00 Pulse 71 01/12/17 09:45 Resp 20 01/12/17 07:00 BP 150/85 01/12/17 07:00 Pulse Ox 96 01/12/17 07:42 Intake & Output 01/11/17 01/12/17 01/12/17 18:59 06:59 18:59 Intake Total 1690 1150 Output Total 1 Balance 1690 1149 Intake: IV 600 900 Lactated Ringers 1,000 ml 600 900 @ 75 mls/hr IV .[id number] [facility] Rx#:[id number] Oral 1090 250 Output: Urine/Stool Mix 1 Other: Voiding Method Indwelling Catheter Toilet Bedside Commode Bedside Commode Indwelling Catheter # Voids 1 3 2 # Bowel Movements 1 1 - Constitutional General appearance: Present: cooperative, no acute distress, obese - Gastrointestinal General gastrointestinal: Present: soft - Integumentary Integumentary: Present: normal - Neurologic Neurologic: Present: CNII-XII intact - Musculoskeletal Musculoskeletal: Present: generalized weakness, strength equal bilaterally - Psychiatric Psychiatric: Present: A&O x's 3, appropriate affect, intact judgment & insight - Labs CBC & Chem 7: 01/12/17 07:27 01/12/17 07:27 Labs: Abnormal Lab Results - Last 24 Hours (Table) 01/11/17 01/11/17 01/11/17 Range/Units 11:38 17:09 20:04 BUN (7-17) mg/dL Glucose (74-99) mg/dL POC Glucose (mg/dL) 172 H 101 H 151 H (75-99) mg/dL 01/12/17 01/12/17 Range/Units 07:11 07:27 BUN 5 L (7-17) mg/dL Glucose 128 H (74-99) mg/dL POC Glucose (mg/dL) 125 H (75-99) mg/dL Microbiology - Last 24 Hours (Table) 01/10/17 21:15 Urine Culture - Preliminary Urine,Catheterized Gram Neg Bacilli Assessment and Plan (1) Sarcoma Narrative/Plan: Chart reviewed, pt is likely going to be discharged from Surgery standpoint in the next 24 hours. Awaiting appt date and time from [facility] sarcoma clinic and will communicate that to pt JOANA, verified contact info. CD of scans on pt chart for her to take to [facility] appt. Pt verbalized understanding. All of her questions were answered to her satisfaction. Status: Acute
--- NOTE | 2017-01-12 11:02 | CDI ---
In responding to this query, please exercise your independent professional judgment. The [facility] Coding Staff and Clinical Documentation Specialists appreciate your assistance in clarifying documentation, maintaining compliance with coding guidelines, accurately documenting patients condition and capturing severity of illness. The fact that a question is asked does not imply that any particular answer is desired or expected. Communication forms are a method of clarifying documentation and are not made part of the Legal Health Record. Thank you in advance for your clarification. Last Revision, May 2015 Samina Hall [address] [place] [address] Documentation Clarification Form Date: 01/05/2017 11:40:00 AM From: Eboni Duncan CCS, CCDS Admit Date: 12/31/2016 3:07:00 PM Patient Name: Alexandra Mcrae Visit Number: [id number] Discharge Date: Dr. Linda Seymour: A diagnosis of anemia lacks specificity to accurately reflect your patients severity of condition and clarification is needed. Patient history/risk factors: Patient was admitted with constipation & difficulty with urination, found to have large pelvic mass, is status post an exploratory laparotomy with excision of pelvic mass, pathology pending. Clinical Indicators: Postoperatively admitted to ICU for monitoring, received IV fluid bolus and 1 unit PRBCs. Hemoglobin: 13.1 pre-op. 9.3 postop Hematocrit: 41.1 pre-op 29.3 postop Treatment: Blood transfusion, IV fluids & IV fluid bolus, H&H, ICU monitoring postoperatively. In order to capture the severity of condition, please clarify the type of anemia and etiology if known: Acute blood loss anemia Acute on chronic blood loss anemia Chronic blood loss anemia Unable to determine Other, please specify Also, was the patient's anemia an expected or unexpected outcome of the surgery? Please document in your progress notes and discharge summary in order to capture severity of illness and risk of mortality. Include clinical findings that support your diagnosis. FYI: Press F11 to launch patient chart. Place X here if this finding has no clinical significance, is not applicable or if you are not able to provide any additional documentation. Thank You. CATRINA
[2017-01-12] MEDS ORDERED: ONDANSETRON ODT 4 MG TAB PO PRN (11:07)
--- NOTE | 2017-01-12 11:07 | P.PN ---
Progress Note - Text She continues to have some nausea. We'll optimize her treatment for this. We' ll expect discharge this afternoon if okay with surgery.
[2017-01-12 11:51] LABS: Glucose,Whole Blood 119 mg/dL (75-99)
[2017-01-12 13:04] LABS: Glucose,Whole Blood 105 mg/dL (75-99)
--- NOTE | 2017-01-12 15:54 | P.DS ---
Providers Date of admission: 12/31/16 15:07 Expected date of discharge: 01/12/17 Attending physician: Bay Montero Consults: 12/31/16 15:08 Consult Physician Urgent Consulting Provider: Marc Moya Consult Reason/Comments: pelvic mass, urinary retention Do you want consulting provider notified?: Yes Consult Physician Urgent Consulting Provider: Renzo Rodriguez Consult Reason/Comments: pelvic mass Do you want consulting provider notified?: Yes 01/01/17 09:39 Consult Physician Urgent Consulting Provider: Saleem Valentin Consult Reason/Comments: abd mass Do you want consulting provider notified?: Already Contacted 01/01/17 13:24 Consult Physician Routine Consulting Provider: Eboni Guzman Consult Reason/Comments: 13 on depression scale. (Moderate) Do you want consulting provider notified?: Already Contacted 01/04/17 17:33 Consult Physician Routine Consulting Provider: Linda Seymour Consult Reason/Comments: icu management Do you want consulting provider notified?: Yes 01/09/17 09:57 Consult Physician Routine Consulting Provider: Pal Mukherjee Consult Reason/Comments: pevic mass Do you want consulting provider notified?: Already Contacted Primary care physician: Carlos Duke [facility] Course: The patient is a 56-year-old white female patient well-known to me. She had been complaining of left lower quadrant pain and dysuria. She was found on KUB originally to have a nephrolithiasis and was referred to urology. For that she came in the emergency room for urinary retention. She indicated since that time and going on for about 3 weeks difficulty urinating. She had an ultrasound of her bladder previously of this. She is also been having trouble defecating. She has a history of hysterectomy and appendectomy. The ultrasound was reviewed and found a pelvic mass. A CT was done and also show this. General surgery, critical care, Gynecology, and urology Overall consult is regarding her care. She underwent a exploratory laparotomy and excision of pelvic mass on 01/05/2017. SHe had a slow, buit uneventful postop recovery. 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 They're recommending [facility] sarcoma clinic as soon as possible. Her discharge was complicated by some mild nausea. She recorded some Zofran for the last day of discharge to get her to feel little bit better. Patient Condition at Discharge: Stable Plan - Discharge Summary New Discharge Prescriptions: New Ondansetron Odt [Zofran ODT] 4 mg PO Q8HR PRN #30 tab PRN Reason: Nausea WHEN PO PRFERRED Continue Sennosides [Senokot] 8.6 mg PO BID PRN PRN Reason: Constipation Insulin Glulisine [Apidra] 15 unit SQ HS Insulin Glulisine [Apidra] See Protocol SQ TID Insulin Glulisine [Apidra] 35 unit SQ BID Insulin Glulisine [Apidra] 40 unit SQ W/BRKFST Insulin Glargine,Hum.rec.anlog [Toujeo Solostar] 20 units SQ HS Insulin Glargine,Hum.rec.anlog [Toujeo Solostar] 80 units SQ QAM metFORMIN HCL ER [Glucophage Xr] 500 mg PO BID Dulaglutide [Trulicity] 0.75 mg SQ TU Ibuprofen [Motrin] 600 mg PO Q6HR PRN PRN Reason: Severe Pain Ibuprofen [Motrin] 400 mg PO Q6HR PRN PRN Reason: Moderate Pain Ibuprofen [Motrin] 200 mg PO Q6HR PRN PRN Reason: Mild Pain Enalapril [Vasotec] 2.5 mg PO HS ALPRAZolam [Xanax] 0.25 mg PO Q6H PRN PRN Reason: Anxiety/Insomnia Albuterol Sulfate [Proair Hfa] 2 puff INHALATION RT-Q6H PRN PRN Reason: Shortness Of Breath Fenofibrate [Lofibra] 160 mg PO HS Gabapentin [Gralise] 600 mg PO HS Montelukast [Singulair] 10 mg PO HS Famotidine [Pepcid] 20 mg PO HS Atorvastatin [Lipitor] 20 mg PO HS Ergocalciferol [Vitamin D2 (DRISDOL)] 50,000 unit PO TU traMADol HCL [traMADol HCL ER] 200 mg PO QAM Loratadine [Claritin] 10 mg PO QAM Canagliflozin [Invokana] 300 mg PO QAM Aspirin EC [Ecotrin Low Dose] 81 mg PO QAM Metoprolol Tartrate [Lopressor] 25 mg PO BID Minivelle Patch 1 patch TRANSDERM TUFR Discharge Medication List ALPRAZolam [Xanax] 0.25 mg PO Q6H PRN 12/31/16 [History] Albuterol Sulfate [Proair Hfa] 2 puff INHALATION RT-Q6H PRN 12/31/16 [History] Aspirin EC [Ecotrin Low Dose] 81 mg PO QAM 12/31/16 [History] Atorvastatin [Lipitor] 20 mg PO 12/31/16 [History] Canagliflozin [Invokana] 300 mg PO QA 12/31/16 [History] Dulaglutide [Trulicity] 0.75 mg SQ 12/31/16 [History] Enalapril [Vasotec] 2.5 mg PO 12/31/16 [History] Ergocalciferol [Vitamin D2 (DRISDOL)] 50,000 unit PO 12/31/16 [History] Famotidine [Pepcid] 20 mg PO 12/31/16 [History] Fenofibrate [Lofibra] 160 mg PO 12/31/16 [History] Gabapentin [Gralise] 600 mg PO 12/31/16 [History] Ibuprofen [Motrin] 200 mg PO Q6HR PRN 12/31/16 [History] Ibuprofen [Motrin] 400 mg PO Q6HR PRN 12/31/16 [History] Ibuprofen [Motrin] 600 mg PO Q6HR PRN 12/31/16 [History] Insulin Glargine,Hum.rec.anlog [Toujeo Solostar] 20 units SQ 12/31/16 [ History] Insulin Glargine,Hum.rec.anlog [Toujeo Solostar] 80 units SQ QA 12/31/16 [ History] Insulin Glulisine [Apidra] 15 unit SQ HS 12/31/16 [History] Insulin Glulisine [Apidra] 35 unit SQ BID 12/31/16 [History] Insulin Glulisine [Apidra] 40 unit SQ W/BRKFST 12/31/16 [History] Insulin Glulisine [Apidra] See Protocol SQ TID 12/31/16 [History] Loratadine [Claritin] 10 mg PO QAM 12/31/16 [History] Metoprolol Tartrate [Lopressor] 25 mg PO BID 12/31/16 [History] Minivelle Patch 1 patch TRANSDERM TUFR 12/31/16 [History] Montelukast [Singulair] 10 mg PO HS 12/31/16 [History] Sennosides [Senokot] 8.6 mg PO BID PRN 12/31/16 [History] metFORMIN HCL ER [Glucophage Xr] 500 mg PO BID 12/31/16 [History] traMADol HCL [traMADol HCL ER] 200 mg PO QAM 12/31/16 [History] Ondansetron Odt [Zofran ODT] 4 mg PO Q8HR PRN #30 tab 01/12/17 [Rx] Follow up Appointment(s)/Referral(s): Carlos Ling MD [Primary Care Provider] - 1-2 days Pal Mukherjee MD [STAFF PHYSICIAN] - 1 Week Renzo Rodriguez MD [STAFF PHYSICIAN] - 1 Week Care Plan Goals (MU): referral per Dr Mukherjee to [facility] Sarcoma clinic JOANA Discharge Disposition: HOME SELF-CARE
[2017-01-12 17:04] LABS: Glucose,Whole Blood 124 mg/dL (75-99)
== END 2017-01-12 18:49 | disposition home or self-care (01) | DRG 357 ==
LOC: EC 11:58 → 6PED 15:07 → 6ICU 01-04 17:38 → 5ONC 01-07 13:48
PROVIDERS: ADMIT Family Medicine; ATTEND Family Medicine
PROC: 0DJD8ZZ Inspection of Lower Intestinal Tract, Via Natural or Artificial Opening Endoscopic (ICD-10-PCS; 2017-01-03)
PROC: 00HU33Z Insertion of Infusion Device into Spinal Canal, Percutaneous Approach (ICD-10-PCS; 2017-01-04)
PROC: 0DBV0ZZ Excision of Mesentery, Open Approach (ICD-10-PCS; principal; 2017-01-04 16:05)
PROC: 30233N1 Transfusion of Nonautologous Red Blood Cells into Peripheral Vein, Percutaneous Approach (ICD-10-PCS; 2017-01-05)
DX: C48.1 Malignant neoplasm of specified parts of peritoneum (principal); D62 Acute posthemorrhagic anemia; I10 Essential (primary) hypertension; E11.9 Type 2 diabetes mellitus without complications; E78.5 Hyperlipidemia, unspecified; F41.9 Anxiety disorder, unspecified; J45.909 Unspecified asthma, uncomplicated; K21.9 Gastro-esophageal reflux disease without esophagitis; M79.7 Fibromyalgia; N20.0 Calculus of kidney; R33.9 Retention of urine, unspecified; M19.90 Unspecified osteoarthritis, unspecified site; K57.90 Diverticulosis of intestine, part unspecified, without perforation or abscess without bleeding; K59.00 Constipation, unspecified; Z79.4 Long term (current) use of insulin; Z79.899 Other long term (current) drug therapy; Z79.82 Long term (current) use of aspirin; Z88.0 Allergy status to penicillin; Z88.2 Allergy status to sulfonamides; Z80.0 Family history of malignant neoplasm of digestive organs
CPT/HCPCS: 36415; 45378; 51798; 71260; 74177; 80048; 80053; 81001; 81003; 81025; 81503; 82378; 83036; 83735; 84100; 85025; 85027; 86301; 86304; 86850; 86900; 86901; 86920; 87077; 87086; 87186; 88307; 88341; 88342; 94760; 96374; 99284

== ENCOUNTER → 2017-02-06 | Outpatient (CLI) | payer MEDICAID ==
[2017-02-06 17:46] LABS: CH 27.1; CHCM 32.3; HCT 39.9 % (34.0-46.0); HDW 3.21; HGB 13.2 gm/dL (11.4-16.0); Hypochromasia Slight; MCH 27.7 pg (25.0-35.0); Mean Platelet Volume 6.9; RBC 4.75 m/uL (3.80-5.40); WBC 8.3 k/uL (3.8-10.6)
[2017-02-06 17:57] LABS: ALT 64 U/L (9-52); AST 39 U/L (14-36); Alkaline Phosphatase 94 U/L (38-126); Anion Gap 11 mmol/L; Blood Urea Nitrogen 16 mg/dL (7-17); Calcium 10.4 mg/dL (8.4-10.2); Carbon Dioxide 28 mmol/L (22-30); Chloride 104 mmol/L (98-107); Glucose 71 mg/dL (74-99); Non-African American GFR(MDRD) >60 (>60 ml/min/1.73 sqM); Potassium 4.4 mmol/L (3.5-5.1); Sodium 143 mmol/L (137-145); Total Bilirubin 0.5 mg/dL (0.2-1.3); Total Protein 7.2 g/dL (6.3-8.2)
== END | disposition home or self-care (01) ==
LOC: LABWHC1 17:24
PROVIDERS: ATTEND Internal Medicine Hematology & Oncology
DX: C49.9 Malignant neoplasm of connective and soft tissue, unspecified (principal)
CPT/HCPCS: 36415; 80053; 85027

== ENCOUNTER → 2017-02-07 | Outpatient (CLI) | payer MEDICAID ==
--- NOTE | 2017-02-07 11:58 | ECHOF ---
Referral Reason:Z01.818 pre chemo MEASUREMENTS -------- HEIGHT: 172.7 cm WEIGHT: 93.4 kg BP: 113/75 RVIDd: 2.6 cm (< 3.3) IVSd: 0.9 cm (0.6 - 1.1) LVIDd: 4.5 cm (3.9 - 5.3) LVPWd: 1.0 cm (0.6 - 1.1) IVSs: 1.3 cm LVIDs: 3.1 cm LVPWs: 1.5 cm LA Diam: 3.4 cm (2.7 - 3.8) LAESV Index (A-L): 10.45 ml/m Ao Diam: 2.7 cm (2.0 - 3.7) AV Cusp: 2.1 cm (1.5 - 2.6) MV EXCURSION: 17.310 mm (> 18.000) MV EF SLOPE: 86 mm/s (70 - 150) EPSS: 0.5 cm MV E Oliverio: 0.98 m/s MV DecT: 246 ms MV A Oliverio: 0.73 m/s MV E/A Ratio: 1.34 FINDINGS -------- Sinus rhythm. This was a technically good study. The left ventricular size is normal. Left ventricular wall thickness is normal. Overall left ventricular systolic function is normal with, an EF between 55 - 60 %. The right ventricle is normal in size and function. Normal LA size by volume 22+/-6 ml/m2. The right atrium is normal in size. The aortic valve is trileaflet and appears structurally normal. The mitral valve is normal. No regurgitation noted Trace/mild (physiologic) pulmonic regurgitation. The aortic root size is normal. Normal inferior vena cava with normal inspiratory collapse consistent with estimated right atrial pressure of 5 mmHg. There is no pericardial effusion. CONCLUSIONS -------- 1. Sinus rhythm. 2. The aortic root size is normal. 3. Normal inferior vena cava with normal inspiratory collapse consistent with estimated right atrial pressure of 5 mmHg. 4. There is no pericardial effusion. 5. This was a technically good study. 6. Left ventricular wall thickness is normal. 7. Overall left ventricular systolic function is normal with, an EF between 55 - 60 %. 8. Normal LA size by volume 22+/-6 ml/m2. 9. The aortic valve is trileaflet and appears structurally normal. 10. The mitral valve is normal. 11. No regurgitation noted 12. Trace/mild (physiologic) pulmonic regurgitation. SENIOR LICENSING MANAGER: Arelis Macias RDCS
== END | disposition home or self-care (01) ==
LOC: RADECHMAIN 08:30
PROVIDERS: ATTEND Internal Medicine Hematology & Oncology
DX: Z01.818 Encounter for other preprocedural examination (principal); Z88.0 Allergy status to penicillin; Z88.2 Allergy status to sulfonamides
CPT/HCPCS: 93306

== ENCOUNTER 2017-02-10 07:59 | Day surgery (SDC) | payer MEDICAID ==
[2017-02-07 12:04] VITALS: BMI 31.3
[~2017-02-10 07:59] MED LIST: DEXAMETHASONE SOD PHOSPHATE 10 MG/ML 1 ML VIAL IV ONE; HEPARIN SODIUM,PORCINE 5,000 UNIT/ML 1 ML VIAL SQ ONE; HYDROmorphone 1 MG/ML 1 ML SYRINGE IVP PRN; LACTATED RINGERS 1,000 ML IV ONE; MIDAZOLAM 2 MG/2 ML VIAL IV PRN; ONDANSETRON 4 MG/2 ML VIAL IVP ONE; SCOPOLAMINE 1.5MG/72HR PATCH TRANSDERM ONE; ceFAZolin 2 GM in SODIUM CHLORIDE 0.9% 100 ML IVPB ONE
[2017-02-10 08:24] VITALS: RESP 16; TEMP 98.1
[2017-02-10 08:28] LABS: Glucose,Whole Blood 119 mg/dL (75-99)
--- NOTE | 2017-02-10 08:53 | P.GSHP ---
History of Present Illness H&P Date: 02/10/17 Chief Complaint: Pelvic sarcoma This a 56-year-old female presents today for dual-lumen Port-A-Cath insertion. 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 Requiring a Port-A-Cath for chemotherapy. She is scheduled to start her chemotherapy at [facility] and of the month. Past Medical History Past Medical History: Asthma, Diabetes Mellitus, Fibromyalgia, GERD/Reflux, Hypertension, Osteoarthritis (OA) Additional Past Medical History / Comment(s): kidney stone History of Any Multi-Drug Resistant Organisms: None Reported Past Surgical History: Adenoidectomy, Appendectomy, Section, Hysterectomy, Orthopedic Surgery, Tonsillectomy Additional Past Surgical History / Comment(s): kidney stent, D&C, hysterectomy, right lateral salpingo-oophorectomy Past Anesthesia/Blood Transfusion Reactions: Postoperative Nausea & Vomiting ( PONV) Additional Past Anesthesia/Blood Transfusion Reaction / Comment(s): Shallow breathing, low pulse ox. Mom and sister with N&V as well. Past Psychological History: No Psychological Hx Reported - Past Family History Mother Family Medical History: Cancer Additional Family Medical History / Comment(s): eye, heart disease Father Additional Family Medical History / Comment(s): ALS, . Sister(s) Additional Family Medical History / Comment(s): ALS - Medications and Allergies Home Medications Medication Instructions Recorded Confirmed Type ALPRAZolam [Xanax] 0.25 mg PO Q6H PRN 12/31/16 02/10/17 History Albuterol Sulfate [Proair Hfa] 2 puff INHALATION RT-Q6H PRN 12/31/16 02/10/17 History Aspirin EC [Ecotrin Low Dose] 81 mg PO [facility] 12/31/16 02/07/17 History Atorvastatin [Lipitor] 20 mg PO 12/31/16 02/10/17 History Canagliflozin [Invokana] 300 mg PO [facility] 12/31/16 02/10/17 History Dulaglutide [Trulicity] 0.75 mg SQ TU 12/31/16 02/07/17 History Enalapril [Vasotec] 2.5 mg PO 12/31/16 02/10/17 History Ergocalciferol [Vitamin D2 50,000 unit PO TU 12/31/16 02/10/17 History (DRISDOL)] Famotidine [Pepcid] 20 mg PO HS PRN 12/31/16 02/10/17 History Fenofibrate [Lofibra] 160 mg PO HS 12/31/16 02/10/17 History Gabapentin [Gralise] 600 mg PO HS 12/31/16 02/10/17 History Ibuprofen [Motrin] 200 mg PO Q6HR PRN 12/31/16 02/07/17 History Ibuprofen [Motrin] 400 mg PO Q6HR PRN 12/31/16 02/07/17 History Ibuprofen [Motrin] 600 mg PO Q6HR PRN 12/31/16 02/07/17 History Insulin Glargine,Hum.rec.anlog 20 units SQ HS 12/31/16 02/10/17 History [Toujeo Solostar] Insulin Glargine,Hum.rec.anlog 80 units SQ QA 12/31/16 02/10/17 History [Toujeo Solostar] Insulin Glulisine [Apidra] 15 unit SQ HS 12/31/16 02/10/17 History Insulin Glulisine [Apidra] 35 unit SQ BID 12/31/16 02/10/17 History Insulin Glulisine [Apidra] 40 unit SQ W/BRKFST 12/31/16 02/10/17 History Insulin Glulisine [Apidra] See Protocol SQ TID 12/31/16 02/10/17 History Loratadine [Claritin] 10 mg PO QAM 12/31/16 02/10/17 History Metoprolol Tartrate [Lopressor] 25 mg PO BID 12/31/16 02/10/17 History Minivelle Patch 1 patch TRANSDERM TUFR 12/31/16 02/10/17 History Montelukast [Singulair] 10 mg PO HS 12/31/16 02/10/17 History metFORMIN HCL ER [Glucophage Xr] 500 mg PO BID 12/31/16 02/10/17 History traMADol HCL [traMADol HCL ER] 200 mg PO QAM 12/31/16 02/10/17 History Ondansetron Odt [Zofran ODT] 4 mg PO Q8HR PRN 07/11/17 07/14/17 History Wheat Dextrin [Benefiber] 1 each PO DAILY PRN 02/07/17 02/07/17 History Allergies Allergy/AdvReac Type Severity Reaction Status Date / Time Penicillins Allergy Dyspnea/Rolando Verified 02/10/17 08:18 h Sulfa (Sulfonamide Allergy Unknown Verified 02/10/17 08:18 Antibiotics) Childhood artificial sweetner Allergy Severe Rash/Hives Uncoded 02/10/17 08:18 Surgical - Exam Vital Signs Temp Pulse Resp BP Pulse Ox 98.1 F 83 16 117/70 98 02/10/17 08:22 02/10/17 08:22 02/10/17 08:22 02/10/17 08:22 02/10/17 08:22 - General well developed, no distress - Eyes PERRL - ENT normal pinna - Neck no masses - Respiratory normal expansion - Cardiovascular Rhythm: regular - Abdomen Well healed laparotomy incision Abdomen: soft, non tender Results - Labs Abnormal Lab Results - Last 24 Hours (Table) 02/10/17 Range/Units 08:25 POC Glucose (mg/dL) 119 H (75-99) mg/dL Assessment and Plan Plan: History of pelvic sarcoma. We'll perform Port-A-Cath insertion.
[2017-02-10] MEDS ORDERED: PROPOFOL 10 MG/ML 20 ML VIAL IV ONE (09:01)
[2017-02-10] MEDS ORDERED: MIDAZOLAM 2 MG/2 ML VIAL ONE (09:01)
[2017-02-10] MEDS ORDERED: LIDOCAINE 1% INJ 10MG/ML (20 ML MDV) ONE (09:01)
[2017-02-10] MEDS ORDERED: fentaNYL (PF) 50 MCG/ML 2 ML AMP ONE (09:01)
[2017-02-10] MEDS ORDERED: BUPIVACAIN-EPI 0.5%-1:200,000 30 ML VIAL SQ ONE (09:19)
[2017-02-10] MEDS ORDERED: HEPARIN SODIUM,PORCINE 100 UNIT/ML 5 ML VIAL IV ONE (09:24)
[2017-02-10] MEDS ORDERED: IOHEXOL 350 MG/ML 50ML BOTTLE INJ ONE (09:48)
--- NOTE | 2017-02-10 10:02 | P.OP ---
Date of Procedure: 02/10/17 Preoperative Diagnosis: Pelvic sarcoma Postoperative Diagnosis: Pelvic sarcoma Procedure(s) Performed: Insertion of right dual-lumen subclavian Port-A-Cath Implants: Anesthesia: MAC Surgeon: Renzo Rodriguez Estimated Blood Loss (ml): 5 Pathology: none sent Condition: stable Disposition: PACU Indications for Procedure: Operative Findings: Description of Procedure: MPROCEDURE: The patient was placed on the operating table in the supine position. She received MAC anesthetic. The right chest was prepped and draped in the usual sterile fashion. The skin underneath the right clavicle was anesthetized with 1% Xylocaine and using Seldinger technique, the right subclavian vein was cannulized. The wire was placed through the needle and positioned under fluoroscopy. Next, the needle was removed and the port site was anesthetized with 1% Xylocaine. Skin was incised with #15 blade and port pocket was made using blunt and sharp dissection. Following this the catheter was attached to the sport and the port was flushed. The port was positioned into the pocket site and was secured with 3-0 Vicryl suture. The catheter was then brought out through the wire site and then the dilator sheath was placed over the wire and the dilator and the wire were removed. The catheter was placed through the sheath and the sheath was removed. The port was flushed with hep-lock solution. Skin was closed with interrupted 3-0 Vicryl sutures. Steri-Strips were applied. The patient tolerated the procedure well. The patient was sent to recovery room for chest x-ray after the procedure.
[2017-02-10 10:12] LABS: Glucose,Whole Blood 116 mg/dL (75-99)
--- NOTE | 2017-02-10 11:00 | XR ---
EXAMINATION TYPE: XR chest 1V DATE OF EXAM: 02/10/2017 COMPARISON: Prior chest x-ray 01/14/2012 HISTORY: Status post central venous catheter placement TECHNIQUE: Single frontal view of the chest is obtained. FINDINGS: There has been interval placement of a Port-A-Cath right pectoral region, distal tip is ov erlying the superior vena cava. No evident pneumothorax. Heart is enlarged. Patchy basilar densities present. IMPRESSION: No evident complication status post Port-A-Cath placement. Basilar atelectasis and cardi omegaly.
[2017-02-10 11:04] VITALS: BP 125/70; PULSE 78
--- NOTE | 2017-02-10 11:11 | FL ---
Fluoroscopy HISTORY: Port-A-Cath placement 7 seconds fluoroscopy time supplied to the referring clinician. 1 intraoperative C-arm images docume nt the procedure. See dictated report from general surgery.
== END 2017-02-10 11:36 | disposition home or self-care (01) ==
LOC: OR 07:59
PROVIDERS: ATTEND Surgery
DX: Z46.89 Encounter for fitting and adjustment of other specified devices (principal); C76.3 Malignant neoplasm of pelvis; E11.9 Type 2 diabetes mellitus without complications; Z79.84 Long term (current) use of oral hypoglycemic drugs; Z79.4 Long term (current) use of insulin; J45.909 Unspecified asthma, uncomplicated; M79.7 Fibromyalgia; K21.9 Gastro-esophageal reflux disease without esophagitis; I10 Essential (primary) hypertension; M19.90 Unspecified osteoarthritis, unspecified site; Z79.82 Long term (current) use of aspirin; Z79.891 Long term (current) use of opiate analgesic; Z79.899 Other long term (current) drug therapy; Z88.0 Allergy status to penicillin; Z88.2 Allergy status to sulfonamides; Z91.018 Allergy to other foods
CPT/HCPCS: 77001; 71010; 36561; C1751; J2250; J1644; J1642; J1100; J0690; J2405; J2001; J3010; J2704; Q9967

== ENCOUNTER 2017-02-20 08:09 | Inpatient (IN) | payer MEDICAID ==
[2017-02-20] MEDS ORDERED: FAMOTIDINE 20 MG/2 ML VIAL IV SCH (09:00)
[2017-02-20] MEDS ORDERED: FOSAPREPITANT DIMEGLUMINE 150 MG in SODIUM CHLORIDE 0.9% 145 ML IV ONE ×2 (09:00→22:00)
[2017-02-20] MEDS ORDERED: DEXAMETHASONE SOD PHOSPHATE 10 MG/ML 1 ML VIAL IV SCH (09:00)
[2017-02-20] MEDS ORDERED: ONDANSETRON 16 MG in SODIUM CHLORIDE 0.9% 50 ML IVPB SCH (09:00)
[2017-02-20] MEDS ORDERED: SODIUM CHLORIDE 0.9% IV SCH ×8 (09:45→21:00)
[2017-02-20] MEDS ORDERED: MESNA IV SCH ×4 (09:45→21:00)
[2017-02-20] MEDS ORDERED: IFOSFAMIDE IV SCH ×2 (10:00→13:00)
[2017-02-20] MEDS ORDERED: DOXORUBICIN HCL IV SCH ×2 (10:00→13:00)
[2017-02-20 11:00] LABS: Basophils % (A) 1 %; CH 27.3; CHCM 32.8; Eosinophils # (A) 0.2 k/uL (0-0.7); Eosinophils % (A) 4 %; HCT 36.2 % (34.0-46.0); HDW 3.06; HGB 12.1 gm/dL (11.4-16.0); Luc % (Auto) 2; Lymphocytes # (A) 1.6 k/uL (1.0-4.8); Lymphocytes % (A) 26 %; MCH 27.9 pg (25.0-35.0); MCHC 33.5 g/dL (31.0-37.0); MCV 83.2 fL (80.0-100.0); Mean Platelet Volume 8.3; Monocytes # (A) 0.4 k/uL (0-1.0); Monocytes % (A) 6 %; Neutrophils # (A) 3.8 k/uL (1.3-7.7); Neutrophils % (A) 62 %; RBC 4.35 m/uL (3.80-5.40); RDW 14.1 % (11.5-15.5); WBC 6.1 k/uL (3.8-10.6); WBC (Perox) 6.27
[2017-02-20 11:03] LABS: ALT 52 U/L (9-52); AST 30 U/L (14-36); Alkaline Phosphatase 82 U/L (38-126); Anion Gap 9 mmol/L; Blood Urea Nitrogen 14 mg/dL (7-17); Calcium 8.9 mg/dL (8.4-10.2); Carbon Dioxide 25 mmol/L (22-30); Chloride 105 mmol/L (98-107); Glucose 143 mg/dL (74-99); Non-African American GFR(MDRD) >60 (>60 ml/min/1.73 sqM); Potassium 4.1 mmol/L (3.5-5.1); Sodium 139 mmol/L (137-145); Total Bilirubin 0.5 mg/dL (0.2-1.3)
[2017-02-20] MEDS ORDERED: ALTEPLASE 2 MG VIAL (CATHFLO) IV STA (17:04)
--- NOTE | 2017-02-20 17:15 | P.CONS ---
History of Present Illness - Reason for Consult Consult date: 02/20/17 Medical management Requesting physician: Norman Cota - Chief Complaint Pelvic liposarcoma - History of Present Illness Patient had recently undergone pelvic surgery for large pelvic liposarcoma is currently admitted for chemotherapy. However patient's port is not working properly so there will be a slight delay in initiating chemotherapeutic agents until radiology can review the use of the port Review of Systems Constitutional: Reports as per HPI Cardiovascular: Reports as per HPI Respiratory: Reports as per HPI Gastrointestinal: Reports as per HPI Genitourinary: Reports as per HPI, Reports kidney stones Menstruation: Reports as per HPI Musculoskeletal: Reports as per HPI Integumentary: Reports as per HPI Neurological: Reports as per HPI Psychiatric: Reports as per HPI Endocrine: Reports high blood sugars, Reports polydipsia, Reports polyphagia, Reports polyuria Hematologic/Lymphatic: Reports as per HPI Past Medical History Past Medical History: Asthma, Cancer, Diabetes Mellitus, Fibromyalgia, GERD/ Reflux, Hypertension, Osteoarthritis (OA) Additional Past Medical History / Comment(s): kidney stone, liposarcoma 12/31/16 History of Any Multi-Drug Resistant Organisms: None Reported Past Surgical History: Adenoidectomy, Appendectomy, Section, Hysterectomy, Orthopedic Surgery, Tonsillectomy Additional Past Surgical History / Comment(s): kidney stent, D&C, hysterectomy, right lateral salpingo-oophorectomy Past Anesthesia/Blood Transfusion Reactions: Postoperative Nausea & Vomiting ( PONV) Past Psychological History: No Psychological Hx Reported Smoking Status: Never smoker Past Alcohol Use History: None Reported Past Drug Use History: None Reported - Past Family History Mother Family Medical History: Cancer Additional Family Medical History / Comment(s): eye, heart disease Father Additional Family Medical History / Comment(s): ALS, . Sister(s) Additional Family Medical History / Comment(s): ALS - Medications and Allergies Home Medications Medication Instructions Recorded Confirmed Type ALPRAZolam [Xanax] 0.25 mg PO Q6H PRN 12/31/16 02/20/17 History Albuterol Sulfate [Proair Hfa] 2 puff INHALATION RT-Q6H PRN 12/31/16 02/20/17 History Aspirin EC [Ecotrin Low Dose] 81 mg PO QAM 12/31/16 02/20/17 History Atorvastatin [Lipitor] 20 mg PO HS 12/31/16 02/20/17 History Canagliflozin [Invokana] 300 mg PO QA 12/31/16 02/20/17 History Dulaglutide [Trulicity] 0.75 mg SQ 12/31/16 02/20/17 History Enalapril [Vasotec] 2.5 mg PO HS 12/31/16 02/20/17 History Ergocalciferol [Vitamin D2 50,000 unit PO 12/31/16 02/20/17 History (DRISDOL)] Famotidine [Pepcid] 20 mg PO HS PRN 12/31/16 02/20/17 History Fenofibrate [Lofibra] 160 mg PO HS 12/31/16 02/20/17 History Gabapentin [Gralise] 600 mg PO 12/31/16 02/20/17 History Ibuprofen [Motrin] 200 - 400 mg PO Q6HR PRN 12/31/16 02/20/17 History Insulin Glargine,Hum.rec.anlog 20 units SQ 12/31/16 02/20/17 History [Toujeo Solostar] Insulin Glargine,Hum.rec.anlog 80 units SQ [facility] 12/31/16 02/20/17 History [Toujeo Solostar] Insulin Glulisine [Apidra] 35 unit SQ AC-LUNCH 12/31/16 02/20/17 History Insulin Glulisine [Apidra] 45 unit SQ AC-BRKFST 12/31/16 02/20/17 History Insulin Glulisine [Apidra] See Protocol SQ 12/31/16 02/20/17 History Loratadine [Claritin] 10 mg PO [facility] 12/31/16 02/20/17 History Metoprolol Tartrate [Lopressor] 25 mg PO BID 12/31/16 02/20/17 History Minivelle Patch 1 patch TRANSDERM [facility] 12/31/16 02/20/17 History Montelukast [Singulair] 10 mg PO 12/31/16 02/20/17 History metFORMIN HCL ER [Glucophage Xr] 500 mg PO BID 12/31/16 02/20/17 History traMADol HCL [traMADol HCL ER] 200 mg PO QA 12/31/16 02/20/17 History Ondansetron Odt [Zofran ODT] 4 mg PO Q8HR PRN 02/07/17 02/20/17 History Wheat Dextrin [Benefiber] 1 packet PO DAILY PRN 02/07/17 02/20/17 History HYDROcodone/APAP 5-325MG [[place] 1 tab PO Q4HR PRN 02/20/17 02/20/17 History 5-325] Insulin Glulisine [Apidra] 35 unit SQ AC-SUPPER 02/20/17 02/20/17 History Allergies Allergy/AdvReac Type Severity Reaction Status Date / Time Penicillins Allergy Dyspnea/Rolando Verified 02/20/17 09:38 h Sulfa (Sulfonamide Allergy Unknown Verified 02/20/17 09:38 Antibiotics) Childhood artificial sweetner Allergy Severe Rash/Hives Uncoded 02/10/17 08:18 Physical Exam Osteopathic Statement: *. No significant issues noted on an osteopathic structural exam other than those noted in the History and Physical/Consult. Vitals: Vital Signs Temp Pulse Resp BP Pulse Ox 02/20/17 08:43 97.1 F L 81 18 126/69 96 Intake and Output 02/20/17 02/20/17 02/20/17 06:59 14:59 22:59 Intake Total 500 Balance 500 Intake: IV 500 Sodium Chloride 0.9% 1, 500 000 ml @ 100 mls/hr IV . Q10H [facility] Rx#:[id number] Other: Weight 92.3 kg Patient Weight 02/21/17 06:59 Weight 92.3 kg General: [Patient awake, alert and oriented times 3. Patient in no acute distress.] HEENT: [PERRL. EOMI. No pharyngeal erythema or exudate.] Neck: [No adenopathy.] Cardiac: [Heart regular in rate and rhythm. No S3. No S4. No clicks, rubs. No murmur.] Lungs: [Clear to auscultation bilaterally.] Abdomen: [No mass. No organomegaly. Bowel sounds presnt and normoactive in all 4 quadrants.] Midline Abdominal incision well healed Extremes: [No edema no cyanosis no claudication normal pulses] : [] Musculoskeletal: [No joint erythema, edema or tenderness.] Skin: [No rash.] Neurologic: [No lateralizing deficits. CN II - XII grossly intact.] Lymphatic: [No adenopathy.] Results CBC & Chem 7: 02/20/17 10:40 02/20/17 10:40 Labs: Abnormal Lab Results - Last 24 Hours (Table) 02/20/17 02/20/17 Range/Units 10:40 10:40 Plt Count 111 L D (150-450) k/uL Glucose 143 H (74-99) mg/dL Total Protein 6.0 L (6.3-8.2) g/dL Albumin 3.4 L (3.5-5.0) g/dL Assessment and Plan Plan: Patient is admitted for initiation of chemotherapeutic agents for underlying liposarcoma
[2017-02-20 18:08] LABS: Glucose,Whole Blood 271 mg/dL (75-99)
--- NOTE | 2017-02-20 18:15 | P.HPIM ---
History of Present Illness H&P Date: 02/20/17 Chief Complaint: liposarcoma, [facility] Mrs. 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 Pt presented in November with c/o oliguria, she was treated for UTI without improvement in her symptoms, she was also experiencing abd discomfort and changes in the caliber of her stool, she was constipatied with ribbon like or pebble stools, she denies any gross bleeding. On 12/29 she had US KUB and a mass was identified posterior to the bladder, she was in the ER on 12/[address] AP 14 x 9 cm midline pelvic mass was found, she was seen by Surgery, Urology and Home Health [facility] during that admit, she had colonoscopy on 01/03 with extrinsic compression of the colon noted, she had exploratory laparotomy on 01/04 with removal of 14.2 cm mass. This was sent to [facility] with diagnosis as stated above, CT chest was negative for mets. Pt was seen at [facility] with recommendations for chemotherapy, she had port placed and is admitted fo [facility]. On admit pt denies fevers, oral irritation, nausea, chest pain, SOB, cough, she wears her abd binder still as it makes her comfortable, no current abd pain or bloating, she is using bene-fiber with good results, no dysuria, hematuria, swelling or unrealistic or new pain to report. Review of Systems All systems: negative Constitutional: Reports as per HPI Past Medical History Past Medical History: Asthma, Cancer, Diabetes Mellitus, Fibromyalgia, GERD/ Reflux, Hypertension, Osteoarthritis (OA) Additional Past Medical History / Comment(s): kidney stone, liposarcoma 12/31/16 History of Any Multi-Drug Resistant Organisms: None Reported Past Surgical History: Adenoidectomy, Appendectomy, Section, Hysterectomy, Orthopedic Surgery, Tonsillectomy Additional Past Surgical History / Comment(s): kidney stent, D&C, hysterectomy, right lateral salpingo-oophorectomy Past Anesthesia/Blood Transfusion Reactions: Postoperative Nausea & Vomiting ( PONV) Past Psychological History: No Psychological Hx Reported Smoking Status: Never smoker Past Alcohol Use History: None Reported Past Drug Use History: None Reported - Past Family History Mother Family Medical History: Cancer Additional Family Medical History / Comment(s): eye, heart disease Father Additional Family Medical History / Comment(s): ALS, . Sister(s) Additional Family Medical History / Comment(s): ALS - Medications and Allergies Home Medications Medication Instructions Recorded Confirmed Type ALPRAZolam [Xanax] 0.25 mg PO Q6H PRN 12/31/16 02/20/17 History Albuterol Sulfate [Proair Hfa] 2 puff INHALATION RT-Q6H PRN 12/31/16 02/20/17 History Aspirin EC [Ecotrin Low Dose] 81 mg PO [facility] 12/31/16 02/20/17 History Atorvastatin [Lipitor] 20 mg PO 12/31/16 02/20/17 History Canagliflozin [Invokana] 300 mg PO [facility] 12/31/16 02/20/17 History Dulaglutide [Trulicity] 0.75 mg SQ 12/31/16 02/20/17 History Enalapril [Vasotec] 2.5 mg PO 12/31/16 02/20/17 History Ergocalciferol [Vitamin D2 50,000 unit PO 12/31/16 02/20/17 History (DRISDOL)] Famotidine [Pepcid] 20 mg PO PRN 12/31/16 02/20/17 History Fenofibrate [Lofibra] 160 mg PO 12/31/16 02/20/17 History Gabapentin [Gralise] 600 mg PO 12/31/16 02/20/17 History Ibuprofen [Motrin] 200 - 400 mg PO Q6HR PRN 12/31/16 02/20/17 History Insulin Glargine,Hum.rec.anlog 20 units SQ 12/31/16 02/20/17 History [Toujeo Solostar] Insulin Glargine,Hum.rec.anlog 80 units SQ [facility] 12/31/16 02/20/17 History [Toujeo Solostar] Insulin Glulisine [Apidra] 35 unit SQ AC-LUNCH 12/31/16 02/20/17 History Insulin Glulisine [Apidra] 45 unit SQ AC-BRKFST 12/31/16 02/20/17 History Insulin Glulisine [Apidra] See Protocol SQ 12/31/16 02/20/17 History Loratadine [Claritin] 10 mg PO QAM 12/31/16 02/20/17 History Metoprolol Tartrate [Lopressor] 25 mg PO BID 12/31/16 02/20/17 History Minivelle Patch 1 patch TRANSDERM [facility] 12/31/16 02/20/17 History Montelukast [Singulair] 10 mg PO HS 12/31/16 02/20/17 History metFORMIN HCL ER [Glucophage Xr] 500 mg PO BID 12/31/16 02/20/17 History traMADol HCL [traMADol HCL ER] 200 mg PO QAM 12/31/16 02/20/17 History Ondansetron Odt [Zofran ODT] 4 mg PO Q8HR PRN 02/07/17 02/20/17 History Wheat Dextrin [Benefiber] 1 packet PO DAILY PRN 02/07/17 02/20/17 History HYDROcodone/APAP 5-325MG [[place] 1 tab PO Q4HR PRN 02/20/17 02/20/17 History 5-325] Insulin Glulisine [Apidra] 35 unit SQ AC-SUPPER 02/20/17 02/20/17 History Allergies Allergy/AdvReac Type Severity Reaction Status Date / Time Penicillins Allergy Dyspnea/Rolando Verified 02/20/17 09:38 h Sulfa (Sulfonamide Allergy Unknown Verified 02/20/17 09:38 Antibiotics) Childhood artificial sweetner Allergy Severe Rash/Hives Uncoded 02/10/17 08:18 Physical Exam Vitals: Vital Signs Temp Pulse Resp BP Pulse Ox 02/20/17 08:43 97.1 F L 81 18 126/69 96 Intake and Output 02/20/17 02/20/17 02/20/17 06:59 14:59 22:59 Intake Total 500 Balance 500 Intake: IV 500 Sodium Chloride 0.9% 1, 500 000 ml @ 100 mls/hr IV . Q10H [facility] Rx#:[id number] Other: Weight 92.3 kg Patient Weight 02/21/17 06:59 Weight 92.3 kg - Constitutional General appearance: cooperative, no acute distress, obese - EENT Eyes: anicteric sclerae, EOMI, PERRLA, normal appearance ENT: hearing grossly normal, normal oropharynx - Neck right neck swelling is noted in area around port insertion and the supraclavicular area, no palpable masses Neck: no lymphadenopathy - Respiratory Respiratory: bilateral: CTA - Cardiovascular Rhythm: regular Heart sounds: normal: S1, S2 leg Peripheral Edema: bilateral: None - Gastrointestinal abd binder in place General gastrointestinal: normal bowel sounds, soft - Integumentary Integumentary: normal - Neurologic Neurologic: CNII-XII intact - Musculoskeletal Musculoskeletal: strength equal bilaterally - Psychiatric Psychiatric: A&O x's 3, appropriate affect, intact judgment & insight Results CBC & Chem 7: 02/20/17 10:40 02/20/17 10:40 Labs: Abnormal Lab Results - Last 24 Hours (Table) 02/20/17 02/20/17 Range/Units 10:40 10:40 Plt Count 111 L D (150-450) k/uL Glucose 143 H (74-99) mg/dL Total Protein 6.0 L (6.3-8.2) g/dL Albumin 3.4 L (3.5-5.0) g/dL Thrombosis Risk Factor Assmnt - DVT/VTE Prophylaxis DVT/VTE Prophylaxis: Pharmacologic Prophylaxis ordered - Choose All That Apply Each Factor Represents 1 point: Age 41-60 years, Obesity (BMI >25) Thrombosis Risk Factor Assessment Total Risk Factor Score: 2 Thrombosis Risk Factor Assessment Level: Low Risk Assessment and Plan (1) Liposarcoma Narrative/Plan: Pt admitted for CIVI chemotherapy. Orders have been reviewed. Premeds and supportive meds ordered, labs daily. Unfortunately, port is not returning blood. Port a gram was ordered but cannot be done until AM so chemo will be delayed until placement can be verified. Will try cathflo to see if fibrin sheath is causing the port to not have blood return, if not then proceed with port a gram in AM . Status: Acute Plan: Dr. Noel has been consulted for medical management
[2017-02-20] MEDS: HYDROcodone/APAP 5-325MG 1 EACH TAB PO PRN ×2 (18:57→23:03)
[2017-02-20 20:05] LABS: Glucose,Whole Blood 321 mg/dL (75-99)
[2017-02-20] MEDS ORDERED: PSYLLIUM HUSK 100% 6 GM PACKET PO PRN (20:30)
[2017-02-20] MEDS ORDERED: ALBUTEROL NEBULIZED 2.5 MG/3 ML INHALATION PRN (20:41)
[2017-02-20] MEDS: ATORVASTATIN 20 MG TAB PO SCH (21:15)
[2017-02-20] MEDS: LISINOPRIL 5 MG TAB PO SCH (21:16)
[2017-02-20] MEDS: MONTELUKAST 10 MG TAB PO SCH (21:16)
[2017-02-20] MEDS: FENOFIBRATE 160 MG TAB PO SCH (21:16)
[2017-02-20] MEDS: METOPROLOL TARTRATE 25 MG TAB PO SCH (21:16)
[2017-02-20] MEDS: metFORMIN 500 MG TAB PO SCH (21:16)
[2017-02-20] MEDS: INSULIN GLARGINE 100 UNIT/ML 10 ML VIAL SQ SCH (21:21)
[2017-02-20] MEDS: INSULIN LISPRO (humaLOG) 300 UNIT/3 ML VIAL SQ SCH ×2 (21:24→22:57)
[2017-02-20] MEDS: SODIUM CHLORIDE 0.9% 1,000 ML IV SCH (21:34)
[2017-02-20] MEDS: SODIUM CHLORIDE 0.9% IV SCH ×3 (21:58→22:43)
[2017-02-20] MEDS: DOXORUBICIN HCL IV SCH (21:58)
[2017-02-20] MEDS: MESNA IV SCH (21:59)
[2017-02-20] MEDS: IFOSFAMIDE IV SCH (22:43)
[2017-02-20] MEDS: FAMOTIDINE 20 MG/2 ML VIAL IV SCH (22:53)
[2017-02-20] MEDS: ONDANSETRON 16 MG in SODIUM CHLORIDE 0.9% 50 ML IVPB SCH (22:55)
[2017-02-20] MEDS: DEXAMETHASONE SOD PHOSPHATE 10 MG/ML 1 ML VIAL IV SCH (22:57)
[2017-02-20] MEDS: ALPRAZolam 0.25 MG TAB PO PRN (23:03)
[2017-02-21 00:18] LABS: Glucose,Whole Blood 233 mg/dL (75-99)
[2017-02-21] MEDS: MESNA IV SCH ×2 (03:09→06:38)
[2017-02-21] MEDS: SODIUM CHLORIDE 0.9% IV SCH ×2 (03:09→06:38)
[2017-02-21] MEDS: traMADol 50 MG TAB PO SCH ×2 (05:47→12:12)
[2017-02-21 06:40] LABS: Basophils % (A) 0 %; CH 27.3; CHCM 32.7; Eosinophils # (A) 0.1 k/uL (0-0.7); Eosinophils % (A) 1 %; HCT 36.8 % (34.0-46.0); HDW 2.99; Luc # (Auto) 0.05; Luc % (Auto) 1; Lymphocytes # (A) 0.8 k/uL (1.0-4.8); Lymphocytes % (A) 10 %; MCH 27.2 pg (25.0-35.0); MCHC 32.6 g/dL (31.0-37.0); MCV 83.5 fL (80.0-100.0); Mean Platelet Volume 8.6; Monocytes # (A) 0.3 k/uL (0-1.0); Monocytes % (A) 4 %; Neutrophils # (A) 6.9 k/uL (1.3-7.7); Neutrophils % (A) 84 %; RBC 4.41 m/uL (3.80-5.40); RDW 13.8 % (11.5-15.5); WBC 8.2 k/uL (3.8-10.6); WBC (Perox) 8.72
[2017-02-21] MEDS: SODIUM CHLORIDE 0.9% 1,000 ML IV SCH ×3 (06:40→23:00)
[2017-02-21 07:27] LABS: Glucose,Whole Blood 231 mg/dL (75-99)
[2017-02-21] MEDS: INSULIN LISPRO (humaLOG) 300 UNIT/3 ML VIAL SQ SCH ×7 (07:44→21:54)
[2017-02-21] MEDS: ASPIRIN 81 MG CHEW PO SCH (07:51)
[2017-02-21] MEDS: INSULIN GLARGINE 100 UNIT/ML 10 ML VIAL SQ SCH ×2 (07:54→21:53)
[2017-02-21] MEDS: LORATADINE 10 MG TAB PO SCH (07:55)
[2017-02-21] MEDS: metFORMIN 500 MG TAB PO SCH ×2 (07:55→17:38)
[2017-02-21] MEDS: ENOXAPARIN 40 MG/0.4 ML SYRINGE SQ SCH (07:55)
[2017-02-21] MEDS: METOPROLOL TARTRATE 25 MG TAB PO SCH ×2 (07:57→21:54)
[2017-02-21] MEDS ORDERED: ONDANSETRON 16 MG in SODIUM CHLORIDE 0.9% 50 ML IVPB SCH (08:00)
[2017-02-21] MEDS ORDERED: FAMOTIDINE 20 MG/2 ML VIAL IV SCH (08:00)
[2017-02-21] MEDS ORDERED: FOSAPREPITANT DIMEGLUMINE 150 MG in SODIUM CHLORIDE 0.9% 145 ML IV ONE (08:00)
[2017-02-21] MEDS ORDERED: DEXAMETHASONE SOD PHOSPHATE 10 MG/ML 1 ML VIAL IV SCH (08:00)
[2017-02-21] MEDS ORDERED: SODIUM CHLORIDE 0.9% IV SCH ×5 (08:45→17:00)
[2017-02-21] MEDS ORDERED: MESNA IV SCH ×3 (08:45→17:00)
[2017-02-21] MEDS ORDERED: IFOSFAMIDE IV SCH (09:00)
[2017-02-21] MEDS ORDERED: DOXORUBICIN HCL IV SCH (09:00)
--- NOTE | 2017-02-21 11:42 | P.PN ---
Subjective Principal diagnosis: liposarcoma CIVI chemotherapy Pt seen today in follow up, she started treatment last night, she is tired today as she did not sleep well due to anxiety, denies fever, oral irritation, nausea, cough, abd pain or distension, her abd binder helps her to feel comfortable, no BM today, no bleeding, swelling or rash, she is ambulatory to bathroom. Objective - Vital Signs Vital signs: Vital Signs Temp 97.1 F L 02/21/17 10:00 Pulse 80 02/21/17 10:00 Resp 18 02/21/17 10:00 BP 109/70 02/21/17 10:00 Pulse Ox 96 02/21/17 10:00 Intake & Output 02/20/17 02/21/17 02/21/17 18:59 06:59 18:59 Intake Total 500 2622 Balance 500 2622 Weight 92.3 kg Intake: IV 500 800 Sodium Chloride 0.9% 1, 500 800 000 ml @ 100 mls/hr IV . Q10H [facility] Rx#:[id number] Intake, IV Titration 1232 Amount DOXOrubicin HCL 50 mg In 342 Sodium Chloride 0.9% 1, 000 ml @ 42.708 mls/hr IV Q24H [facility] Rx#:[id number] Ifosfamide 5,175 mg In 500 Sodium Chloride 0.9% 500 ml @ 166.667 mls/hr IV Q24H [facility] Rx#:[id number] [place] 1,000 mg In Sodium 340 Chloride 0.9% 50 ml @ 240 mls/hr IV Q24H [facility] Rx#: [id number] Ondansetron 16 mg In 50 Sodium Chloride 0.9% 50 ml @ 100 mls/hr IVPB Q24H [facility] Rx#:[id number] Oral 590 Other: Voiding Method Toilet Toilet # Voids 3 - Constitutional General appearance: Present: cooperative, no acute distress, obese - EENT Eyes: Present: anicteric sclerae, EOMI, PERRLA ENT: Present: hearing grossly normal, normal oropharynx - Respiratory Respiratory: bilateral: CTA - Cardiovascular Rhythm: regular Heart sounds: normal: S1, S2 - Peripheral edema leg Peripheral Edema: bilateral: None - Gastrointestinal Gastrointestinal Comment(s): midline incision is well healed other then a 5-6 mm area in the middle of the incision that is not open but questionable as to if there is a small open area, no gross drainage but when the area can be spread apart, no redness, tenderness or s/s infection General gastrointestinal: Present: normal bowel sounds, soft - Integumentary Integumentary: Present: normal - Neurologic Neurologic: Present: CNII-XII intact - Musculoskeletal Musculoskeletal: Present: strength equal bilaterally - Psychiatric Psychiatric: Present: A&O x's 3, appropriate affect, intact judgment & insight - Labs CBC & Chem 7: 02/21/17 05:56 02/20/17 10:40 Labs: Abnormal Lab Results - Last 24 Hours (Table) 02/20/17 02/20/17 02/21/17 Range/Units 18:06 20:03 00:17 Plt Count (150-450) k/uL Lymphocytes # (1.0-4.8) k/uL POC Glucose (mg/dL) 271 H 321 H 233 H (75-99) mg/dL 02/21/17 02/21/17 Range/Units 05:56 07:19 Plt Count 101 L (150-450) k/uL Lymphocytes # 0.8 L (1.0-4.8) k/uL POC Glucose (mg/dL) 231 H (75-99) mg/dL Assessment and Plan (1) Liposarcoma Narrative/Plan: Cont chemotherapy without adjustment. Labs ordered daily, supportive meds available. Dr. Montero and Dr. Ling for medical management. Status: Acute Plan: GI, DVT prophylaxis.
[2017-02-21] MEDS ORDERED: ERGOCALCIFEROL 50,000 UNIT CAP PO SCH (12:00)
[2017-02-21 12:03] LABS: Glucose,Whole Blood 126 mg/dL (75-99)
[2017-02-21] MEDS: ALPRAZolam 0.25 MG TAB PO PRN ×2 (12:12→20:23)
[2017-02-21] MEDS: SALT AND SODA MOUTHWASH 1,000 ML PO SCH ×3 (17:01→23:00)
[2017-02-21 17:29] LABS: Glucose,Whole Blood 181 mg/dL (75-99)
[2017-02-21] MEDS ORDERED: traMADol 50 MG TAB PO PRN (17:34)
--- NOTE | 2017-02-21 18:27 | P.PN ---
Subjective Principal diagnosis: Liposarcoma/chemotherapy Patient awake alert vital signs are stable under went initial chemotherapy apparently all was well. Objective - Vital Signs Vital signs: Vital Signs Temp 97.9 F 02/21/17 15:00 Pulse 84 02/21/17 15:00 Resp 16 02/21/17 15:00 BP 124/66 02/21/17 15:00 Pulse Ox 97 02/21/17 15:00 Intake & Output 02/20/17 02/21/17 02/21/17 18:59 06:59 18:59 Intake Total 500 2622 1141.6 Balance 500 2622 1141.6 Weight 92.3 kg Intake: IV 500 800 800 Sodium Chloride 0.9% 1, 500 800 800 000 ml @ 100 mls/hr IV . Q10H [facility] Rx#:[id number] Intake, IV Titration 1232 341.6 Amount DOXOrubicin HCL 50 mg In 342 341.6 Sodium Chloride 0.9% 1, 000 ml @ 42.708 mls/hr IV Q24H [facility] Rx#:[id number] Ifosfamide 5,175 mg In 500 Sodium Chloride 0.9% 500 ml @ 166.667 mls/hr IV Q24H [facility] Rx#:[id number] [place] 1,000 mg In Sodium 340 Chloride 0.9% 50 ml @ 240 mls/hr IV Q24H [facility] Rx#: [id number] Ondansetron 16 mg In 50 Sodium Chloride 0.9% 50 ml @ 100 mls/hr IVPB Q24H [facility] Rx#:[id number] Oral 590 Other: Voiding Method Toilet Toilet # Voids 3 - Exam General: [Patient awake, alert and oriented times 3. Patient in no acute distress.] HEENT: [PERRL. EOMI. No pharyngeal erythema or exudate.] Neck: [No adenopathy.] Cardiac: [Heart regular in rate and rhythm. No S3. No S4. No clicks, rubs. No murmur.] Lungs: [Clear to auscultation bilaterally.] Abdomen: [No mass. No organomegaly. Bowel sounds presnt and normoactive in all 4 quadrants.] Midline surgical scar healing well Extremes: [No edema no cyanosis no claudication normal pulses] : [] Musculoskeletal: [No joint erythema, edema or tenderness.] Skin: [No rash.] Neurologic: [No lateralizing deficits. CN II - XII grossly intact.] Lymphatic: [No adenopathy.] - Labs CBC & Chem 7: 02/21/17 05:56 02/20/17 10:40 Labs: Abnormal Lab Results - Last 24 Hours (Table) 02/20/17 02/21/17 02/21/17 Range/Units 20:03 00:17 05:56 Plt Count 101 L (150-450) k/uL Lymphocytes # 0.8 L (1.0-4.8) k/uL POC Glucose (mg/dL) 321 H 233 H (75-99) mg/dL 02/21/17 02/21/17 02/21/17 Range/Units 07:19 12:00 17:27 Plt Count (150-450) k/uL Lymphocytes # (1.0-4.8) k/uL POC Glucose (mg/dL) 231 H 126 H 181 H (75-99) mg/dL Assessment and Plan Plan: Patient is admitted for initiation of chemotherapeutic agents for underlying liposarcoma Hypertension by history well-controlled Diabetes by history fairly well controlled Hypercholesterolemia by history well-controlled
[2017-02-21 20:20] LABS: Glucose,Whole Blood 185 mg/dL (75-99)
[2017-02-21] MEDS: ATORVASTATIN 20 MG TAB PO SCH (21:53)
[2017-02-21] MEDS: FENOFIBRATE 160 MG TAB PO SCH (21:53)
[2017-02-21] MEDS: MONTELUKAST 10 MG TAB PO SCH (21:54)
[2017-02-21] MEDS: LISINOPRIL 5 MG TAB PO SCH (21:54)
[2017-02-21] MEDS: HYDROcodone/APAP 5-325MG 1 EACH TAB PO PRN (21:58)
[2017-02-21] MEDS: DEXAMETHASONE SOD PHOSPHATE 10 MG/ML 1 ML VIAL IV SCH (23:25)
[2017-02-21] MEDS: FAMOTIDINE 20 MG/2 ML VIAL IV SCH (23:26)
[2017-02-21] MEDS: ONDANSETRON 16 MG in SODIUM CHLORIDE 0.9% 50 ML IVPB SCH (23:38)
[2017-02-22] MEDS: MESNA IV SCH ×3 (00:28→08:35)
[2017-02-22] MEDS: SODIUM CHLORIDE 0.9% IV SCH ×5 (00:28→08:35)
[2017-02-22] MEDS: DOXORUBICIN HCL IV SCH (00:28)
[2017-02-22] MEDS: IFOSFAMIDE IV SCH (00:59)
[2017-02-22] MEDS: ALPRAZolam 0.25 MG TAB PO PRN ×2 (02:14→17:24)
[2017-02-22 06:43] LABS: Basophils % (A) 0 %; CH 27.7; CHCM 32.9; Eosinophils % (A) 0 %; HCT 35.3 % (34.0-46.0); HDW 2.94; HGB 11.7 gm/dL (11.4-16.0); Luc # (Auto) 0.03; Luc % (Auto) 1; Lymphocytes # (A) 0.7 k/uL (1.0-4.8); Lymphocytes % (A) 10 %; MCHC 33.2 g/dL (31.0-37.0); MCV 84.3 fL (80.0-100.0); Mean Platelet Volume 7.9; Monocytes # (A) 0.2 k/uL (0-1.0); Monocytes % (A) 3 %; Neutrophils % (A) 85 %; RBC 4.19 m/uL (3.80-5.40); RDW 14.6 % (11.5-15.5); WBC 7.1 k/uL (3.8-10.6); WBC (Perox) 7.13
[2017-02-22 07:42] LABS: Glucose,Whole Blood 128 mg/dL (75-99)
[2017-02-22] MEDS: SODIUM CHLORIDE 0.9% 1,000 ML IV SCH ×2 (08:35→18:12)
[2017-02-22] MEDS: SALT AND SODA MOUTHWASH 1,000 ML PO SCH ×4 (08:36→23:23)
[2017-02-22] MEDS: LORATADINE 10 MG TAB PO SCH (08:36)
[2017-02-22] MEDS: METOPROLOL TARTRATE 25 MG TAB PO SCH ×2 (08:36→21:58)
[2017-02-22] MEDS: ASPIRIN 81 MG CHEW PO SCH (08:37)
[2017-02-22] MEDS: metFORMIN 500 MG TAB PO SCH ×2 (08:37→18:08)
[2017-02-22] MEDS: ENOXAPARIN 40 MG/0.4 ML SYRINGE SQ SCH (08:37)
[2017-02-22] MEDS: INSULIN LISPRO (humaLOG) 300 UNIT/3 ML VIAL SQ SCH ×7 (08:38→22:07)
[2017-02-22] MEDS: INSULIN GLARGINE 100 UNIT/ML 10 ML VIAL SQ SCH ×2 (08:52→22:07)
[2017-02-22] MEDS: HYDROcodone/APAP 5-325MG 1 EACH TAB PO PRN ×2 (11:10→20:18)
[2017-02-22 11:34] LABS: Glucose,Whole Blood 114 mg/dL (75-99)
--- NOTE | 2017-02-22 12:08 | P.PN ---
Subjective Principal diagnosis: liposarcoma CIVI chemotherapy Pt seen in follow up, she continues to tolerated treatment, she got a good nights sleep, no oral irritation, nausea, appetite is fair, no SOB, cough, heartburn, she is urinating in large quantities, denies dysuira, hematuria, no red tinged urine despite adriamycin administration, denies constipation or diarrhea, she is ambulatory. Objective - Vital Signs Vital signs: Vital Signs Temp 97.1 F L 02/22/17 07:00 Pulse 83 02/22/17 07:00 Resp 18 02/22/17 07:00 BP 123/81 02/22/17 07:00 Pulse Ox 97 02/22/17 07:00 Intake & Output 02/21/17 02/22/17 02/22/17 18:59 06:59 18:59 Intake Total 1141.6 3352 Balance 1141.6 3352 Intake: IV 800 1100 Sodium Chloride 0.9% 1, 800 1100 000 ml @ 100 mls/hr IV . Q10H [facility] Rx#:[id number] Intake, IV Titration 341.6 1162 Amount DOXOrubicin HCL 50 mg In 341.6 422 Sodium Chloride 0.9% 1, 000 ml @ 42.708 mls/hr IV Q24H [facility] Rx#:[id number] Ifosfamide 5,175 mg In 500 Sodium Chloride 0.9% 500 ml @ 166.667 mls/hr IV Q24H [facility] Rx#:[id number] [place] 1,000 mg In Sodium 240 Chloride 0.9% 50 ml @ 240 mls/hr IV Q24H [facility] Rx#: [id number] Oral 1090 Other: Voiding Method Toilet Toilet Toilet # Voids 3 - Constitutional General appearance: Present: cooperative, no acute distress, obese - EENT Eyes: Present: anicteric sclerae, EOMI, normal appearance ENT: Present: hearing grossly normal, normal oropharynx - Respiratory Respiratory: bilateral: CTA - Cardiovascular Rhythm: regular Heart sounds: normal: S1, S2 Abnormal Heart Sounds: Present: systolic murmur - Peripheral edema leg Peripheral Edema: bilateral: None - Gastrointestinal General gastrointestinal: Present: normal bowel sounds, soft - Integumentary Integumentary: Present: normal - Neurologic Neurologic: Present: CNII-XII intact - Musculoskeletal Musculoskeletal: Present: strength equal bilaterally - Psychiatric Psychiatric: Present: A&O x's 3, appropriate affect, intact judgment & insight - Labs CBC & Chem 7: 02/22/17 06:30 02/20/17 10:40 Labs: Abnormal Lab Results - Last 24 Hours (Table) 02/21/17 02/21/17 02/22/17 Range/Units 17:27 20:18 06:30 Plt Count 122 L (150-450) k/uL Lymphocytes # 0.7 L (1.0-4.8) k/uL POC Glucose (mg/dL) 181 H 185 H (75-99) mg/dL 02/22/17 02/22/17 Range/Units 07:37 11:15 Plt Count (150-450) k/uL Lymphocytes # (1.0-4.8) k/uL POC Glucose (mg/dL) 128 H 114 H (75-99) mg/dL Assessment and Plan (1) Liposarcoma Narrative/Plan: Continue chemotherapy without adjustment. Supportive meds ordered, labs daily. Status: Acute Plan: GI, DVT prophylaxis. Dr. Montero following for Medical management
[2017-02-22 13:18] LABS: Glucose,Whole Blood 48 mg/dL (75-99)
[2017-02-22 13:35] LABS: Glucose,Whole Blood 66 mg/dL (75-99)
[2017-02-22 14:00] LABS: Glucose,Whole Blood 95 mg/dL (75-99)
[2017-02-22 17:30] LABS: Glucose,Whole Blood 131 mg/dL (75-99)
[2017-02-22] MEDS: ONDANSETRON ODT 4 MG TAB PO PRN (19:02)
[2017-02-22 20:07] LABS: Glucose,Whole Blood 112 mg/dL (75-99)
[2017-02-22] MEDS: LISINOPRIL 5 MG TAB PO SCH (21:58)
[2017-02-22] MEDS: ATORVASTATIN 20 MG TAB PO SCH (21:58)
[2017-02-22] MEDS: FENOFIBRATE 160 MG TAB PO SCH (21:58)
[2017-02-22] MEDS: MONTELUKAST 10 MG TAB PO SCH (21:58)
[2017-02-23] MEDS: ALPRAZolam 0.25 MG TAB PO PRN ×4 (00:03→20:37)
[2017-02-23] MEDS: DEXAMETHASONE SOD PHOSPHATE 10 MG/ML 1 ML VIAL IV SCH (02:08)
[2017-02-23] MEDS: ONDANSETRON 16 MG in SODIUM CHLORIDE 0.9% 50 ML IVPB SCH (02:09)
[2017-02-23] MEDS: FAMOTIDINE 20 MG/2 ML VIAL IV SCH (02:09)
[2017-02-23] MEDS: SODIUM CHLORIDE 0.9% IV SCH ×5 (03:16→16:17)
[2017-02-23] MEDS: DOXORUBICIN HCL IV SCH (03:16)
[2017-02-23] MEDS: MESNA IV SCH ×3 (03:17→16:17)
[2017-02-23] MEDS: IFOSFAMIDE IV SCH (03:44)
[2017-02-23] MEDS: HYDROcodone/APAP 5-325MG 1 EACH TAB PO PRN ×2 (04:05→11:18)
[2017-02-23] MEDS ORDERED: ALTEPLASE 2 MG VIAL (CATHFLO) IV STA (07:08)
[2017-02-23 07:39] LABS: Glucose,Whole Blood 103 mg/dL (75-99)
[2017-02-23] MEDS: SODIUM CHLORIDE 0.9% 1,000 ML IV SCH ×2 (07:56→16:17)
[2017-02-23] MEDS: INSULIN LISPRO (humaLOG) 300 UNIT/3 ML VIAL SQ SCH ×7 (07:57→20:39)
[2017-02-23] MEDS: INSULIN GLARGINE 100 UNIT/ML 10 ML VIAL SQ SCH ×2 (07:58→20:38)
[2017-02-23] MEDS: ASPIRIN 81 MG CHEW PO SCH (08:02)
[2017-02-23] MEDS: METOPROLOL TARTRATE 25 MG TAB PO SCH ×2 (08:02→20:39)
[2017-02-23] MEDS: metFORMIN 500 MG TAB PO SCH ×2 (08:02→17:40)
[2017-02-23] MEDS: LORATADINE 10 MG TAB PO SCH (08:02)
[2017-02-23] MEDS: ENOXAPARIN 40 MG/0.4 ML SYRINGE SQ SCH (08:02)
[2017-02-23] MEDS: SALT AND SODA MOUTHWASH 1,000 ML PO SCH ×4 (08:03→20:39)
[2017-02-23 08:58] LABS: Basophils % (A) 0 %; CH 27.5; Eosinophils % (A) 0 %; HCT 40.3 % (34.0-46.0); HDW 2.82; Luc # (Auto) 0.06; Luc % (Auto) 1; Lymphocytes # (A) 0.8 k/uL (1.0-4.8); Lymphocytes % (A) 12 %; MCH 27.6 pg (25.0-35.0); MCHC 32.1 g/dL (31.0-37.0); MCV 85.9 fL (80.0-100.0); Mean Platelet Volume 7.6; Monocytes # (A) 0.2 k/uL (0-1.0); Monocytes % (A) 4 %; Neutrophils # (A) 5.8 k/uL (1.3-7.7); Neutrophils % (A) 84 %; RBC 4.69 m/uL (3.80-5.40); WBC 6.9 k/uL (3.8-10.6); WBC (Perox) 7.02
[2017-02-23 09:16] LABS: ALT 50 U/L (9-52); AST 37 U/L (14-36); Alkaline Phosphatase 74 U/L (38-126); Anion Gap 10 mmol/L; Blood Urea Nitrogen 12 mg/dL (7-17); Calcium 9.3 mg/dL (8.4-10.2); Carbon Dioxide 23 mmol/L (22-30); Chloride 108 mmol/L (98-107); Glucose 95 mg/dL (74-99); Non-African American GFR(MDRD) >60 (>60 ml/min/1.73 sqM); Potassium 4.3 mmol/L (3.5-5.1); Sodium 141 mmol/L (137-145); Total Bilirubin 0.4 mg/dL (0.2-1.3); Total Protein 6.6 g/dL (6.3-8.2)
[2017-02-23 11:38] LABS: Glucose,Whole Blood 105 mg/dL (75-99)
[2017-02-23 14:09] LABS: Glucose,Whole Blood 130 mg/dL (75-99)
[2017-02-23 16:46] LABS: Glucose,Whole Blood 103 mg/dL (75-99)
--- NOTE | 2017-02-23 18:56 | P.PN ---
Subjective Principal diagnosis: liposarcoma CIVI chemotherapy Since seen today in follow-up, she had a poor night sleep last night and is feeling tired today, she denies any oral irritation, appetite is fair, mild nausea but no vomiting, shortness of breath, cough, indigestion or heartburn, dysuria or hematuria, diarrhea or constipation, bleeding, swelling, she does have complaints of some musculoskeletal discomforts. Objective - Vital Signs Vital signs: Vital Signs Temp 98.1 F 02/23/17 15:51 Pulse 81 02/23/17 15:51 Resp 18 02/23/17 15:51 BP 126/77 02/23/17 15:51 Pulse Ox 98 02/23/17 15:51 Intake & Output 02/22/17 02/23/17 02/23/17 18:59 06:59 18:59 Intake Total 2399.3 1130 Balance 2399.3 1130 Weight 96 kg Intake: IV 1150 400 Sodium Chloride 0.9% 1, 1150 400 000 ml @ 100 mls/hr IV . Q10H MATTHEW Rx#:[id number] Intake, IV Titration 1249.3 730 Amount DOXOrubicin HCL 50 mg In 180 Sodium Chloride 0.9% 1, 000 ml @ 42.708 mls/hr IV Q24H MATTHEW Rx#:[id number] DOXOrubicin HCL 50 mg In 467.3 Sodium Chloride 0.9% 1, 000 ml @ 42.708 mls/hr IV Q24H MATTHEW Rx#:[id number] Ifosfamide 5,175 mg In 332 500 Sodium Chloride 0.9% 500 ml @ 166.667 mls/hr IV Q24H MATTHEW Rx#:[id number] [place] 1,000 mg In Sodium 50 50 Chloride 0.9% 50 ml @ 240 mls/hr IV Q24H MATTHEW Rx#: [id number] Ondansetron 16 mg In 50 Sodium Chloride 0.9% 50 ml @ 100 mls/hr IVPB Q24H MATTHEW Rx#:[id number] Sodium Chloride 0.9% 1, 350 000 ml @ 100 mls/hr IV . Q10H MATTHEW Rx#:[id number] Other: Voiding Method Toilet Toilet # Voids 6 1 # Bowel Movements 3 - Constitutional General appearance: Present: average body habitus, no acute distress, obese - EENT Eyes: Present: EOMI, normal appearance ENT: Present: normal oropharynx - Respiratory Respiratory: bilateral: CTA - Cardiovascular Rhythm: regular Heart sounds: normal: S1, S2 Abnormal Heart Sounds: Absent: systolic murmur, diastolic murmur, rub, S3 Gallop , S4 Gallop, click, other - Peripheral edema leg Peripheral Edema: bilateral: None - Gastrointestinal Gastrointestinal Comment(s): Midline incision previous area of concern is now scabbed over, no redness along the incision. No pain with palpation of the abdomen. General gastrointestinal: Present: soft - Integumentary Integumentary: Present: normal - Neurologic Neurologic: Present: CNII-XII intact - Musculoskeletal Musculoskeletal: Present: generalized weakness, strength equal bilaterally - Psychiatric Psychiatric: Present: A&O x's 3, appropriate affect, intact judgment & insight - Labs CBC & Chem 7: 02/23/17 08:34 02/23/17 08:34 Labs: Abnormal Lab Results - Last 24 Hours (Table) 02/22/17 02/23/17 02/23/17 Range/Units 20:05 07:34 08:34 Plt Count 125 L (150-450) k/uL Lymphocytes # 0.8 L (1.0-4.8) k/uL Chloride (98-107) mmol/L POC Glucose (mg/dL) 112 H 103 H (75-99) mg/dL AST (14-36) U/L 02/23/17 02/23/17 02/23/17 Range/Units 08:34 11:30 14:05 Plt Count (150-450) k/uL Lymphocytes # (1.0-4.8) k/uL Chloride 108 H (98-107) mmol/L POC Glucose (mg/dL) 105 H 130 H (75-99) mg/dL AST 37 H (14-36) U/L 02/23/17 Range/Units 16:44 Plt Count (150-450) k/uL Lymphocytes # (1.0-4.8) k/uL Chloride (98-107) mmol/L POC Glucose (mg/dL) 103 H (75-99) mg/dL AST (14-36) U/L Assessment and Plan (1) Liposarcoma Narrative/Plan: Continue chemotherapy without adjustment Labs daily Continue supportive care for side effects of chemotherapy Patient has met with social work in regards to distress screening. No acute changes to plan of care. Patient will likely be discharged as soon as her chemotherapy is complete Patient has follow-up already scheduled for Monday at Dr. Mukherjee's office, she will have CBC and G-CSF will be administered. He has been informed. Date and time placed inpatient medical record. Status: Acute
[2017-02-23 20:19] LABS: Glucose,Whole Blood 70 mg/dL (75-99)
[2017-02-23] MEDS: ONDANSETRON ODT 4 MG TAB PO PRN (20:37)
[2017-02-23] MEDS: FENOFIBRATE 160 MG TAB PO SCH (20:38)
[2017-02-23] MEDS: ATORVASTATIN 20 MG TAB PO SCH (20:38)
[2017-02-23] MEDS: MONTELUKAST 10 MG TAB PO SCH (20:39)
[2017-02-23] MEDS: LISINOPRIL 5 MG TAB PO SCH (20:39)
[2017-02-23 20:43] VITALS: RESP 16
[2017-02-23] MEDS: GABAPENTIN 600 MG PO SCH ×2 (22:28→22:34)
[2017-02-24] MEDS: FAMOTIDINE 20 MG/2 ML VIAL IV SCH (03:00)
[2017-02-24] MEDS: DEXAMETHASONE SOD PHOSPHATE 10 MG/ML 1 ML VIAL IV SCH (03:00)
[2017-02-24] MEDS: ALPRAZolam 0.25 MG TAB PO PRN (03:00)
[2017-02-24] MEDS: ONDANSETRON 16 MG in SODIUM CHLORIDE 0.9% 50 ML IVPB SCH (03:01)
[2017-02-24 03:12] LABS: Glucose,Whole Blood 115 mg/dL (75-99)
[2017-02-24] MEDS: SODIUM CHLORIDE 0.9% IV SCH ×4 (04:03→12:32)
[2017-02-24] MEDS: MESNA IV SCH ×3 (04:03→12:32)
[2017-02-24] MEDS: IFOSFAMIDE IV SCH (04:16)
[2017-02-24] MEDS: SODIUM CHLORIDE 0.9% 1,000 ML IV SCH ×2 (04:36→11:30)
[2017-02-24 05:01] LABS: ALT 49 U/L (9-52); AST 25 U/L (14-36); Alkaline Phosphatase 59 U/L (38-126); Anion Gap 10 mmol/L; Blood Urea Nitrogen 13 mg/dL (7-17); Carbon Dioxide 24 mmol/L (22-30); Chloride 106 mmol/L (98-107); Glucose 146 mg/dL (74-99); Non-African American GFR(MDRD) >60 (>60 ml/min/1.73 sqM); Potassium 3.6 mmol/L (3.5-5.1); Sodium 140 mmol/L (137-145); Total Bilirubin 0.5 mg/dL (0.2-1.3); Total Protein 5.5 g/dL (6.3-8.2)
[2017-02-24 05:18] LABS: Basophils % (A) 0 %; CH 27.5; CHCM 32.6; Eosinophils # (A) 0.1 k/uL (0-0.7); Eosinophils % (A) 1 %; HCT 36.3 % (34.0-46.0); HDW 2.79; HGB 11.9 gm/dL (11.4-16.0); Luc # (Auto) 0.02; Luc % (Auto) 1; Lymphocytes # (A) 0.8 k/uL (1.0-4.8); Lymphocytes % (A) 15 %; MCH 27.6 pg (25.0-35.0); MCHC 32.7 g/dL (31.0-37.0); MCV 84.3 fL (80.0-100.0); Mean Platelet Volume 7.4; Monocytes # (A) 0.2 k/uL (0-1.0); Monocytes % (A) 4 %; Neutrophils # (A) 4.4 k/uL (1.3-7.7); Neutrophils % (A) 79 %; RDW 14.2 % (11.5-15.5); WBC 5.5 k/uL (3.8-10.6); WBC (Perox) 5.91
[2017-02-24] MEDS: ONDANSETRON ODT 4 MG TAB PO PRN (07:53)
[2017-02-24] MEDS: INSULIN LISPRO (humaLOG) 300 UNIT/3 ML VIAL SQ SCH ×4 (07:54→12:35)
[2017-02-24 07:57] LABS: Glucose,Whole Blood 202 mg/dL (75-99)
[2017-02-24] MEDS: ENOXAPARIN 40 MG/0.4 ML SYRINGE SQ SCH (08:06)
[2017-02-24] MEDS ORDERED: PEGFILGRASTIM 6 MG/0.6 ML SYRINGE (ONPRO) SQ ONE (09:00)
[2017-02-24] MEDS: ASPIRIN 81 MG CHEW PO SCH (09:56)
[2017-02-24] MEDS: HYDROcodone/APAP 5-325MG 1 EACH TAB PO PRN (09:56)
[2017-02-24] MEDS: METOPROLOL TARTRATE 25 MG TAB PO SCH (09:56)
[2017-02-24] MEDS: metFORMIN 500 MG TAB PO SCH (09:56)
[2017-02-24] MEDS: SALT AND SODA MOUTHWASH 1,000 ML PO SCH ×2 (09:57→12:34)
[2017-02-24] MEDS: INSULIN GLARGINE 100 UNIT/ML 10 ML VIAL SQ SCH (09:57)
[2017-02-24] MEDS: LORATADINE 10 MG TAB PO SCH (09:57)
[2017-02-24 11:26] LABS: Glucose,Whole Blood 197 mg/dL (75-99)
[2017-02-24] MEDS ORDERED: diphenhydrAMINE 50 MG/ML 1 ML VIAL IVP STA (11:51)
[2017-02-24 12:31] VITALS: BP 123/77; PULSE 68; TEMP 98.2
--- NOTE | 2017-02-24 12:39 | P.DS ---
Providers Date of admission: 02/20/17 08:09 Expected date of discharge: 02/24/17 Attending physician: Pal Mukherjee Consults: 02/20/17 11:59 Consult Physician Routine Consulting Provider: Carlos Ling Consult Reason/Comments: medical management Do you want consulting provider notified?: Yes Primary care physician: Carlos Ling - Discharge Diagnosis(es) (1) Liposarcoma Current Visit: Yes Status: Acute Priority: High Hospital Course: Pt admitted 02/20 for adjuvant CIVI chemotherapy for liposarcoma. Her port required 1 1/2 forte needle and cathflow instillation x 2 to maintain good blood return, no other complications reported. She has tolerated treatment well , no fevers, mild nausea, no vomiting, her bowel and bladder habits have actually improved, she is ambulating and tolerating oral intake. Pertinent Studies: none Procedures: None Patient Condition at Discharge: Fair Plan - Discharge Summary New Discharge Prescriptions: New Ondansetron [Zofran] 4 mg PO Q4HR PRN #90 tab PRN Reason: Nausea HYDROcodone/APAP 5-325MG [[place] 5-325] 1 tab PO Q4HR PRN #60 tab PRN Reason: Pain No Action Insulin Glulisine [Apidra] See Protocol SQ HS Insulin Glulisine [Apidra] 35 unit SQ AC-LUNCH Insulin Glulisine [Apidra] 45 unit SQ AC-BRKFST Insulin Glargine,Hum.rec.anlog [[place] Solostar] 20 units SQ HS Insulin Glargine,Hum.rec.anlog [[place] Solostar] 80 units SQ QAM metFORMIN HCL ER [Glucophage Xr] 500 mg PO BID Ibuprofen [Motrin] 200 - 400 mg PO Q6HR PRN PRN Reason: Mild Pain Enalapril [Vasotec] 2.5 mg PO HS ALPRAZolam [Xanax] 0.25 mg PO Q6H PRN PRN Reason: Anxiety/Insomnia Albuterol Sulfate [Proair Hfa] 2 puff INHALATION RT-Q6H PRN PRN Reason: Shortness Of Breath Fenofibrate [Lofibra] 160 mg PO HS Gabapentin [Gralise] 600 mg PO HS Montelukast [Singulair] 10 mg PO HS Famotidine [Pepcid] 20 mg PO HS PRN PRN Reason: Indigestion Atorvastatin [Lipitor] 20 mg PO HS Ergocalciferol [Vitamin D2 (DRISDOL)] 50,000 unit PO TU traMADol HCL [traMADol HCL ER] 200 mg PO QAM Loratadine [Claritin] 10 mg PO QAM Aspirin EC [Ecotrin Low Dose] 81 mg PO QAM Metoprolol Tartrate [Lopressor] 25 mg PO BID [place] Patch 1 patch TRANSDERM TUFR Ondansetron Odt [Zofran ODT] 4 mg PO Q8HR PRN PRN Reason: Nausea And Vomiting Wheat Dextrin [Benefiber] 1 packet PO DAILY PRN PRN Reason: Constipation Insulin Glulisine [Apidra] 35 unit SQ AC-SUPPER HYDROcodone/APAP 5-325MG [[place] 5-325] 1 tab PO Q4HR PRN PRN Reason: Moderate Pain Discharge Medication List ALPRAZolam [Xanax] 0.25 mg PO Q6H PRN 12/31/16 [History] Albuterol Sulfate [Proair Hfa] 2 puff INHALATION RT-Q6H PRN 12/31/16 [History] Aspirin EC [Ecotrin Low Dose] 81 mg PO QAM 12/31/16 [History] Atorvastatin [Lipitor] 20 mg PO HS 12/31/16 [History] Enalapril [Vasotec] 2.5 mg PO HS 12/31/16 [History] Ergocalciferol [Vitamin D2 (DRISDOL)] 50,000 unit PO TU 12/31/16 [History] Famotidine [Pepcid] 20 mg PO HS PRN 12/31/16 [History] Fenofibrate [Lofibra] 160 mg PO HS 12/31/16 [History] Gabapentin [Gralise] 600 mg PO HS 12/31/16 [History] Ibuprofen [Motrin] 200 - 400 mg PO Q6HR PRN 12/31/16 [History] Insulin Glargine,Hum.rec.anlog [Toujeo Solostar] 20 units SQ HS 12/31/16 [ History] Insulin Glargine,Hum.rec.anlog [[place]o Solostar] 80 units SQ QAM 12/31/16 [ History] Insulin Glulisine [Apidra] 35 unit SQ AC-LUNCH 12/31/16 [History] Insulin Glulisine [Apidra] 45 unit SQ AC-BRKFST 12/31/16 [History] Insulin Glulisine [Apidra] See Protocol SQ HS 12/31/16 [History] Loratadine [Claritin] 10 mg PO QAM 12/31/16 [History] Metoprolol Tartrate [Lopressor] 25 mg PO BID 12/31/16 [History] [place] Patch 1 patch TRANSDERM TUFR 12/31/16 [History] Montelukast [Singulair] 10 mg PO HS 12/31/16 [History] metFORMIN HCL ER [Glucophage Xr] 500 mg PO BID 12/31/16 [History] traMADol HCL [traMADol HCL ER] 200 mg PO QAM 12/31/16 [History] Ondansetron Odt [Zofran ODT] 4 mg PO Q8HR PRN 02/07/17 [History] Wheat Dextrin [Benefiber] 1 packet PO DAILY PRN 02/07/17 [History] HYDROcodone/APAP 5-325MG [[place] 5-325] 1 tab PO Q4HR PRN 02/20/17 [History] Insulin Glulisine [Apidra] 35 unit SQ AC-SUPPER 02/20/17 [History] HYDROcodone/APAP 5-325MG [[place] 5-325] 1 tab PO Q4HR PRN #60 tab 02/24/17 [Rx] Ondansetron [Zofran] 4 mg PO Q4HR PRN #90 tab 02/24/17 [Rx] Follow up Appointment(s)/Referral(s): Pal Mukherjee MD [STAFF PHYSICIAN] - 02/27/17 9:30 am (this appt is at the [address] [place] [address] location. Office # [phone]. CBC and GCSF administration) Carlos Ling MD [Primary Care Provider] - 2 Weeks Patient Instructions/Handouts: Neutropenia (DC), Chemo Induced Nausea and Vomiting (DC), Intravenous Chemotherapy (DC) Activity/Diet/Wound Care/Special Instructions: Diet as tolerated Activity as tolerated Reviewed self care- hand washing, oral care, treatment of common side effects ( nausea, diarrhea/constipation), balance rest and activity, smaller more frequent meals, liberal fluid intake, pain management and neutropenic precautions. Discharge Disposition: HOME SELF-CARE Pending Studies Pending Results: none
== END 2017-02-24 17:11 | disposition home or self-care (01) | DRG 848 ==
LOC: 5ONC 08:09
PROVIDERS: ADMIT Internal Medicine Hematology & Oncology; ATTEND Internal Medicine Hematology & Oncology
DX: Z51.11 Encounter for antineoplastic chemotherapy (principal); C76.2 Malignant neoplasm of abdomen; I10 Essential (primary) hypertension; E11.9 Type 2 diabetes mellitus without complications; J45.909 Unspecified asthma, uncomplicated; K21.9 Gastro-esophageal reflux disease without esophagitis; M79.7 Fibromyalgia; Z79.4 Long term (current) use of insulin; Z79.84 Long term (current) use of oral hypoglycemic drugs; Z79.899 Other long term (current) drug therapy; Z87.442 Personal history of urinary calculi; E78.00 Pure hypercholesterolemia, unspecified; F41.9 Anxiety disorder, unspecified; Z88.2 Allergy status to sulfonamides; Z88.0 Allergy status to penicillin
CPT/HCPCS: 80053; 85025

== ENCOUNTER → 2017-03-09 | Outpatient (CLI) | payer MEDICAID ==
--- NOTE | 2017-03-10 07:28 | MR ---
EXAMINATION TYPE: MR cspine/tspine wo/w con DATE OF EXAM: 03/09/2017 COMPARISON: NONE HISTORY: Jaw Matthew Upper Ext Numbness TECHNIQUE: Multiplanar, multisequence images of the cervical and thoracic spine is performed without and with IV contrast, utilizing 18 mL intravenous MultiHance FINDINGS: Cervical spine: Sagittal images of the cervical spine show vertebral body heights and alignment to appear satisfactor y. The intervertebral discs demonstrate normal heights and hydration. The cervical cord is normal in position and signal. The bone marrow signal intensity is within normal limits. C6-7 shows lateral extension of endplate disc complex and foraminal encroachment on the left. Minimal central disc protrusion C5-6, C4-5 and C3-4 causes slight anterior mass effect on the thecal sac. There is no significant significant central canal stenosis. No abnormal enhancement following co ntrast administration. Thoracic spine: Thoracic vertebral bodies show preserved height and alignment. Scattered hemangiomas present within s everal vertebral bodies. Mild multilevel spondylosis is present. No significant foraminal encroachmen t, spinal stenosis, or sizable disc herniation. No abnormal enhancement following contrast administra tion. Multilevel mild facet arthropathy changes are present greater at the lower lumbar spine, some m ild mass effect posterior laterally on the thecal sac at the lumbosacral junction. Right-sided lung m ass is noted incidentally. Thoracic cord signal is maintained. IMPRESSION: Mild degenerative disc disease. Right-sided lung mass.
== END | disposition home or self-care (01) ==
LOC: RADMRIMAIN 20:17
PROVIDERS: ATTEND Internal Medicine Hematology & Oncology
DX: M51.34 Other intervertebral disc degeneration, thoracic region (principal); R91.8 Other nonspecific abnormal finding of lung field; R20.2 Paresthesia of skin
CPT/HCPCS: 72156; 72157; A9577

== ENCOUNTER → 2017-03-10 | Outpatient (CLI) | payer MEDICAID ==
[2017-03-10 13:35] LABS: ALT 57 U/L (9-52); AST 31 U/L (14-36); Alkaline Phosphatase 106 U/L (38-126); Anion Gap 10 mmol/L; Blood Urea Nitrogen 10 mg/dL (7-17); Calcium 9.5 mg/dL (8.4-10.2); Carbon Dioxide 26 mmol/L (22-30); Chloride 103 mmol/L (98-107); Glucose 185 mg/dL (74-99); Non-African American GFR(MDRD) >60 (>60 ml/min/1.73 sqM); Potassium 4.5 mmol/L (3.5-5.1); Sodium 139 mmol/L (137-145); Total Bilirubin 0.3 mg/dL (0.2-1.3); Total Protein 6.6 g/dL (6.3-8.2)
[2017-03-10 13:41] LABS: Anisocytosis Slight; Basophils # (A) 0.1 k/uL (0-0.2); Basophils % (A) 1 %; CH 28.2; CHCM 33.5; Eosinophils # (A) 0.1 k/uL (0-0.7); Eosinophils % (A) 1 %; HCT 38.4 % (34.0-46.0); HDW 3.07; HGB 12.5 gm/dL (11.4-16.0); Luc # (Auto) 0.15; Luc % (Auto) 2; Lymphocytes # (A) 1.2 k/uL (1.0-4.8); Lymphocytes % (A) 11 %; MCH 27.3 pg (25.0-35.0); MCHC 32.5 g/dL (31.0-37.0); MCV 84.3 fL (80.0-100.0); Mean Platelet Volume 8.4; Monocytes # (A) 0.6 k/uL (0-1.0); Monocytes % (A) 5 %; Neutrophils # (A) 8.2 k/uL (1.3-7.7); Neutrophils % (A) 80 %; RBC 4.56 m/uL (3.80-5.40); RDW 16.4 % (11.5-15.5); WBC 10.2 k/uL (3.8-10.6); WBC (Perox) 10.63
--- NOTE | 2017-03-10 14:55 | CT ---
EXAMINATION TYPE: CT chest w con DATE OF EXAM: 03/10/2017 COMPARISON: 01/10/2017 HISTORY: 56-year-old female history of liposarcoma. TECHNIQUE: Contiguous axial scanning of the chest after the administration of 100 ml mL of Omnipaque 300. Coronal/sagittal reconstructions performed. CT DLP: 909mGycm. Automatic exposure control utilized for a dose reduction. FINDINGS: Right anterior chest wall injection port with catheter tip at the brachiocephalic vein confluence. The heart is normal size without pericardial effusion. Aorta is normal caliber with conventional arch vessel branching anatomy. Scattered nonenlarged mediastinal lymph nodes are present. No thoracic lymphadenopathy by CT size cri teria. Interval resolution of previous bilateral pleural effusions. No consolidation. Strandy atelectasis a t the peripheral left base. - 5 mm anterior right upper lobe pulmonary nodule axial image 21. - A couple tiny 3 mm pulmonary nodules along the minor fissure axial image 31. - 4 mm right middle lobe pulmonary nodule axial image 36. - 4 mm right lower lobe pulmonary nodule axial image 36. - 4 mm peripheral left basilar pulmonary nodule axial image 34. - 4 mm peripheral left midlung pulmonary nodule axial image 22. Partially visualized 9 mm calculus in the left mid kidney. No abdominal lymphadenopathy seen. Bones: No osseous destructive process. IMPRESSION: 1. Interval resolution of the previous pleural effusions. 2. Scattered 5 mm and smaller pulmonary nodules. In retrospect, these are unchanged from 01/10/2017. T hese are nonspecific. Given the patient's history of sarcoma, close follow-up recommended.
== END | disposition home or self-care (01) ==
LOC: RADPROMAIN 12:43
PROVIDERS: ATTEND Internal Medicine Hematology & Oncology
DX: C49.9 Malignant neoplasm of connective and soft tissue, unspecified (principal); R91.8 Other nonspecific abnormal finding of lung field
CPT/HCPCS: 80053; 85025; 71260; 36415; Q9967

== ENCOUNTER 2017-03-13 08:13 | Inpatient (IN) | payer MEDICAID ==
[2017-03-13] MEDS ORDERED: SODIUM CHLORIDE 0.9% IV SCH ×3 (08:45→09:00)
[2017-03-13] MEDS ORDERED: MESNA IV SCH (08:45)
[2017-03-13] MEDS ORDERED: DEXAMETHASONE SOD PHOSPHATE 10 MG/ML 1 ML VIAL IV SCH (09:00)
[2017-03-13] MEDS ORDERED: FAMOTIDINE 20 MG/2 ML VIAL IV SCH (09:00)
[2017-03-13] MEDS ORDERED: IFOSFAMIDE IV SCH (09:00)
[2017-03-13] MEDS ORDERED: DOXORUBICIN HCL IV SCH (09:00)
[2017-03-13] MEDS ORDERED: ONDANSETRON 16 MG in SODIUM CHLORIDE 0.9% 50 ML IVPB SCH (09:00)
[2017-03-13] MEDS ORDERED: FOSAPREPITANT DIMEGLUMINE 150 MG in SODIUM CHLORIDE 0.9% 145 ML IV ONE ×2 (09:00→14:00)
[2017-03-13] MEDS: SODIUM CHLORIDE 0.9% 1,000 ML IV SCH (11:00)
[2017-03-13] MEDS ORDERED: ALTEPLASE 2 MG VIAL (CATHFLO) IV STA (12:21)
[2017-03-13 13:09] LABS: Basophils # (A) 0.1 k/uL (0-0.2); Basophils % (A) 1 %; CH 27.4; CHCM 33.1; Eosinophils % (A) 1 %; HCT 35.9 % (34.0-46.0); HDW 3.17; HGB 12.2 gm/dL (11.4-16.0); Luc # (Auto) 0.19; Luc % (Auto) 2; Lymphocytes # (A) 0.9 k/uL (1.0-4.8); Lymphocytes % (A) 11 %; MCH 28.3 pg (25.0-35.0); MCHC 34.1 g/dL (31.0-37.0); MCV 82.9 fL (80.0-100.0); Mean Platelet Volume 7.4; Monocytes # (A) 0.5 k/uL (0-1.0); Monocytes % (A) 6 %; Neutrophils # (A) 6.5 k/uL (1.3-7.7); Neutrophils % (A) 79 %; RBC 4.33 m/uL (3.80-5.40); RDW 15.7 % (11.5-15.5); WBC 8.2 k/uL (3.8-10.6); WBC (Perox) 8.37
[2017-03-13] MEDS: ALPRAZolam 0.25 MG TAB PO PRN (13:17)
[2017-03-13 13:58] VITALS: BMI 29.9
[2017-03-13] MEDS: DEXAMETHASONE SOD PHOSPHATE 10 MG/ML 1 ML VIAL IV SCH (14:16)
[2017-03-13] MEDS: FAMOTIDINE 20 MG/2 ML VIAL IV SCH (14:16)
[2017-03-13] MEDS: ONDANSETRON 16 MG in SODIUM CHLORIDE 0.9% 50 ML IVPB SCH (14:17)
[2017-03-13] MEDS: MESNA IV SCH ×2 (15:45→20:25)
[2017-03-13] MEDS: DOXORUBICIN HCL IV SCH (15:45)
[2017-03-13] MEDS: SODIUM CHLORIDE 0.9% IV SCH ×4 (15:45→20:25)
--- NOTE | 2017-03-13 15:54 | P.HPIM ---
History of Present Illness H&P Date: 03/13/17 Chief Complaint: admit for CIVI chemotherapy for sarcoma Pt admitted for second cycle of AIM for liposarcoma. Pt resented in November with oliguria, treated for UTI with no improvement in her symptoms, she was then experiencing abd discomfort and change in stool-constipation, pebble and ribbon stools. She had US KUB and a 14 x 9cm midline pelvic mass was found, she had colonoscopy with extrinsic compression noted and then had exploratory laparotomy 01/04 with removal of the mass, positive margins. [facility] evaluated pt and recommended adjuvant chemotherapy, pt did not have metastatic disease, final staging [id number], high grade liposarcoma. She completed her 1st cycle of AIM protocol 02/24. Pt on admit today has no c/o fever, oral irritation, nausea, vomiting, appetite is fair to good, no abd pain, her midline abd incision is well healed, no diarrhea, constipation, bleeding or olvera to report. Review of Systems All systems: negative Constitutional: Reports as per HPI Past Medical History Past Medical History: Asthma, Cancer, Diabetes Mellitus, Fibromyalgia, GERD/ Reflux, Hyperlipidemia, Hypertension, Osteoarthritis (OA), Renal Disease Additional Past Medical History / Comment(s): Liposarcoma 12/31/16 with pelvic mass removal ([facility]) and port placed-has completed first round chemo, IDDM type II, L elbow fracture-surgery/bone removal, arthritis bilateral knees/ shoulders/L elbow, DDD cervical spine and upper back, bilateral tinnitis, neuropathy chin and arms at times. History of Any Multi-Drug Resistant Organisms: None Reported Past Surgical History: Adenoidectomy, Appendectomy, Section, Hysterectomy, Orthopedic Surgery, Tonsillectomy Additional Past Surgical History / Comment(s): Exploratory lapa with pelvic mass removal, port placement, kidney stent/removed, D&C, right lateral salpingo- oophorectomy, colonoscopy, umbilical hernia repair, L knee arthroscopy, L elbow implant then bone removal. Past Anesthesia/Blood Transfusion Reactions: Postoperative Nausea & Vomiting ( [facility]ON[facility]) Smoking Status: Never smoker - Past Family History Mother Family Medical History: Cancer Additional Family Medical History / Comment(s): eye, heart disease Father Additional Family Medical History / Comment(s): ALS, . Sister(s) Additional Family Medical History / Comment(s): ALS - Medications and Allergies Home Medications Medication Instructions Recorded Confirmed Type ALPRAZolam [Xanax] 0.25 mg PO Q6H PRN 12/31/16 03/13/17 History Albuterol Sulfate [Proair Hfa] 2 puff INHALATION RT-Q6H PRN 12/31/16 03/13/17 History Atorvastatin [Lipitor] 20 mg PO HS 12/31/16 03/13/17 History Enalapril [Vasotec] 2.5 mg PO HS 12/31/16 03/13/17 History Ergocalciferol [Vitamin D2 50,000 unit PO TU 12/31/16 03/13/17 History (DRISDOL)] Famotidine [Pepcid] 20 mg PO HS PRN 12/31/16 03/13/17 History Fenofibrate [Lofibra] 160 mg PO HS 12/31/16 03/13/17 History Gabapentin [Gralise] 600 mg PO HS 12/31/16 03/13/17 History Ibuprofen [Motrin] 200 - 400 mg PO Q6HR PRN 12/31/16 03/13/17 History Insulin Glargine,Hum.rec.anlog 20 units SQ HS 12/31/16 03/13/17 History [Toujeo Solostar] Insulin Glargine,Hum.rec.anlog 50 units SQ QA 12/31/16 03/13/17 History [T[place]jeo Solostar] Insulin Glulisine [Apidra] See Protocol SQ HS 12/31/16 03/13/17 History Loratadine [Claritin] 10 mg PO QAM 12/31/16 03/13/17 History Metoprolol Tartrate [Lopressor] 25 mg PO BID 12/31/16 03/13/17 History Montelukast [Singulair] 10 mg PO HS 12/31/16 03/13/17 History metFORMIN HCL ER [Glucophage Xr] 500 mg PO BID 12/31/16 03/13/17 History Ondansetron Odt [Zofran ODT] 4 mg PO Q8HR PRN 02/07/17 03/13/17 History Wheat Dextrin [Benefiber] 1 packet PO DAILY PRN 02/07/17 03/13/17 History Insulin Glulisine [Apidra] 25 unit SQ TID 02/20/17 03/13/17 History Loperamide [Imodium] 2 mg PO DAILY PRN 03/13/17 03/13/17 History Allergies Allergy/AdvReac Type Severity Reaction Status Date / Time Penicillins Allergy Dyspnea/Rolando Verified 03/13/17 10:22 h Sulfa (Sulfonamide Allergy Unknown Verified 03/13/17 10:22 Antibiotics) Childhood artificial sweetner Allergy Severe Rash/Hives Uncoded 02/10/17 08:18 Physical Exam Vitals: Vital Signs Temp Pulse Resp BP Pulse Ox 03/13/17 10:50 98.6 F 75 18 113/57 96 Intake and Output 03/12/17 03/13/17 03/13/17 22:59 06:59 14:59 Other: Weight 89.5 kg Patient Weight 03/14/17 06:59 Weight 89.5 kg - Constitutional General appearance: cooperative, no acute distress, obese - EENT Eyes: anicteric sclerae, EOMI, normal appearance ENT: normal oropharynx - Neck Neck: no lymphadenopathy - Respiratory Respiratory: bilateral: CTA - Cardiovascular Rhythm: regular Heart sounds: normal: S1, S2 leg Peripheral Edema: bilateral: None - Gastrointestinal midline incision well healed General gastrointestinal: normal bowel sounds, soft - Integumentary Integumentary: normal - Neurologic Neurologic: CNII-XII intact - Musculoskeletal Musculoskeletal: strength equal bilaterally - Psychiatric Psychiatric: A&O x's 3, appropriate affect, intact judgment & insight Results CBC & Chem 7: 03/13/17 12:43 Thrombosis Risk Factor Assmnt - DVT/VTE Prophylaxis DVT/VTE Prophylaxis: Pharmacologic Prophylaxis ordered - Choose All That Apply Any of the Below Risk Factors Present?: Yes Each Factor Represents 1 point: Age 41-60 years, Obesity (BMI >25) Other Risk Factors: Yes Other congenital or acquired thrombophilia - If yes, enter type in comment: No Thrombosis Risk Factor Assessment Total Risk Factor Score: 2 Thrombosis Risk Factor Assessment Level: Low Risk Assessment and Plan (1) Liposarcoma Narrative/Plan: Admit for CIVI chemotherapy. Orders reviewed, supportive meds ordered, labs daily. Status: Acute Plan: GI and DVT prophylaxis Consulted pt PCP for medical management
[2017-03-13] MEDS: IFOSFAMIDE IV SCH (16:18)
[2017-03-13 17:35] LABS: Glucose,Whole Blood 241 mg/dL (75-99)
[2017-03-13] MEDS: APIDRA SQ SCH ×2 (18:10→20:31)
[2017-03-13] MEDS: metFORMIN 500 MG TAB PO SCH (18:12)
[2017-03-13] MEDS: SALT AND SODA MOUTHWASH 1,000 ML PO SCH ×3 (18:49→22:56)
[2017-03-13] MEDS: HYDROcodone/APAP 5-325MG 1 EACH TAB PO PRN (18:50)
[2017-03-13] MEDS: ALBUTEROL NEBULIZED 2.5 MG/3 ML INHALATION PRN (19:46)
[2017-03-13 20:25] LABS: Glucose,Whole Blood 276 mg/dL (75-99)
[2017-03-13] MEDS: ATORVASTATIN 20 MG TAB PO SCH (20:26)
[2017-03-13] MEDS: METOPROLOL TARTRATE 25 MG TAB PO SCH (20:27)
[2017-03-13] MEDS: LISINOPRIL 5 MG TAB PO SCH (20:27)
[2017-03-13] MEDS: FENOFIBRATE 160 MG TAB PO SCH (20:27)
[2017-03-13] MEDS: MONTELUKAST 10 MG TAB PO SCH (20:27)
[2017-03-13] MEDS: diphenhydrAMINE 50 MG CAP PO SCH (20:27)
[2017-03-13] MEDS: TOUJEO SQ SCH (20:30)
[2017-03-14] MEDS: MESNA IV SCH ×2 (00:16→21:42)
[2017-03-14] MEDS: SODIUM CHLORIDE 0.9% IV SCH ×4 (00:16→21:51)
[2017-03-14] MEDS: SODIUM CHLORIDE 0.9% 1,000 ML IV SCH ×4 (00:17→23:07)
[2017-03-14] MEDS: ALPRAZolam 0.25 MG TAB PO PRN ×2 (00:23→18:39)
[2017-03-14 07:42] LABS: Glucose,Whole Blood 209 mg/dL (75-99)
[2017-03-14] MEDS: TOUJEO SQ SCH ×2 (08:12→20:38)
[2017-03-14] MEDS: APIDRA SQ SCH ×4 (08:15→22:59)
[2017-03-14] MEDS: metFORMIN 500 MG TAB PO SCH ×2 (08:21→17:40)
[2017-03-14] MEDS: METOPROLOL TARTRATE 25 MG TAB PO SCH ×2 (08:21→20:37)
[2017-03-14] MEDS: LORATADINE 10 MG TAB PO SCH (08:21)
--- NOTE | 2017-03-14 08:21 | P.HPIM ---
History of Present Illness H&P Date: 03/13/17 Chief Complaint: second course AIM chemotherapy for liposarcoma this is a 56-year-ol female well-known to the practice, who is presenting for a second course o chemotherapy for Ricardo sarcoma. Patient also has a history of hyper and type 1 diabetes Review of Systems Constitutional: Reports as per HPI Ears, nose, mouth and throat: Reports as per HPI Cardiovascular: Reports as per HPI Respiratory: Reports as per HPI Gastrointestinal: Reports as per HPI Genitourinary: Reports as per HPI Menstruation: Reports as per HPI Musculoskeletal: Reports as per HPI Integumentary: Reports as per HPI Neurological: Reports as per HPI Past Medical History Past Medical History: Asthma, Cancer, Diabetes Mellitus, Fibromyalgia, GERD/ Reflux, Hyperlipidemia, Hypertension, Osteoarthritis (OA), Renal Disease Additional Past Medical History / Comment(s): Liposarcoma 12/31/16 with pelvic mass removal ([facility]) and port placed-has completed first round chemo, IDDM type II, L elbow fracture-surgery/bone removal, arthritis bilateral knees/ shoulders/L elbow, DDD cervical spine and upper back, bilateral tinnitis, neuropathy chin and arms at times. History of Any Multi-Drug Resistant Organisms: None Reported Past Surgical History: Adenoidectomy, Appendectomy, Section, Hysterectomy, Orthopedic Surgery, Tonsillectomy Additional Past Surgical History / Comment(s): Exploratory lapa with pelvic mass removal, port placement, kidney stent/removed, D&C, right lateral salpingo- oophorectomy, colonoscopy, umbilical hernia repair, L knee arthroscopy, L elbow implant then bone removal. Past Anesthesia/Blood Transfusion Reactions: Postoperative Nausea & Vomiting ( [facility]) Smoking Status: Never smoker - Past Family History Mother Family Medical History: Cancer Additional Family Medical History / Comment(s): eye, heart disease Father Additional Family Medical History / Comment(s): ALS, . Sister(s) Additional Family Medical History / Comment(s): ALS - Medications and Allergies Home Medications Medication Instructions Recorded Confirmed Type ALPRAZolam [Xanax] 0.25 mg PO Q6H PRN 12/31/16 03/13/17 History Albuterol Sulfate [Proair Hfa] 2 puff INHALATION RT-Q6H PRN 12/31/16 03/13/17 History Atorvastatin [Lipitor] 20 mg PO HS 12/31/16 03/13/17 History Enalapril [Vasotec] 2.5 mg PO 12/31/16 03/13/17 History Ergocalciferol [Vitamin D2 50,000 unit PO 12/31/16 03/13/17 History (DRISDOL)] Famotidine [Pepcid] 20 mg PO HS PRN 12/31/16 03/13/17 History Fenofibrate [Lofibra] 160 mg PO 12/31/16 03/13/17 History Gabapentin [Gralise] 600 mg PO HS 12/31/16 03/13/17 History Ibuprofen [Motrin] 200 - 400 mg PO Q6HR PRN 12/31/16 03/13/17 History Insulin Glargine,Hum.rec.anlog 20 units SQ 12/31/16 03/13/17 History [Toujeo Solostar] Insulin Glargine,Hum.rec.anlog 50 units SQ [facility] 12/31/16 03/13/17 History [Toujeo Solostar] Insulin Glulisine [Apidra] See Protocol SQ 12/31/16 03/13/17 History Loratadine [Claritin] 10 mg PO QAM 12/31/16 03/13/17 History Metoprolol Tartrate [Lopressor] 25 mg PO BID 12/31/16 03/13/17 History Montelukast [Singulair] 10 mg PO 12/31/16 03/13/17 History metFORMIN HCL ER [Glucophage Xr] 500 mg PO BID 12/31/16 03/13/17 History Ondansetron Odt [Zofran ODT] 4 mg PO Q8HR PRN 02/07/17 03/13/17 History Wheat Dextrin [Benefiber] 1 packet PO DAILY PRN 02/07/17 03/13/17 History Insulin Glulisine [Apidra] 25 unit SQ TID 02/20/17 03/13/17 History Loperamide [Imodium] 2 mg PO DAILY PRN 03/13/17 03/13/17 History Allergies Allergy/AdvReac Type Severity Reaction Status Date / Time Penicillins Allergy Dyspnea/Rolando Verified 03/13/17 10:22 h Sulfa (Sulfonamide Allergy Unknown Verified 03/13/17 10:22 Antibiotics) Childhood artificial sweetner Allergy Severe Rash/Hives Uncoded 02/10/17 08:18 Physical Exam Osteopathic Statement: *. No significant issues noted on an osteopathic structural exam other than those noted in the History and Physical/Consult. Vitals: Vital Signs Temp Pulse Pulse Resp BP Pulse Ox 03/14/17 07:00 97.4 F L 90 16 119/74 97 03/14/17 00:00 16 03/13/17 22:51 96.9 F L 99 16 113/61 93 L 03/13/17 19:55 84 03/13/17 19:48 80 03/13/17 15:00 97.9 F 82 18 124/70 96 03/13/17 10:50 98.6 F 75 18 113/57 96 Intake and Output 03/13/17 03/14/17 03/14/17 22:59 06:59 14:59 Intake Total 950 2348 Balance 950 2348 Intake: Intake, IV Titration 2228 Amount DOXOrubicin HCL 50 mg In 1328 Sodium Chloride 0.9% 1, 000 ml @ 42.708 mls/hr IV DAILY@1430 [facility] Rx#: [id number] [place] 1,000 mg In Sodium 100 Chloride 0.9% 50 ml @ 240 mls/hr IV 1430,1830,2230 [facility] Rx#:[id number] Sodium Chloride 0.9% 1, 800 000 ml @ 100 mls/hr IV . Q10H [facility] Rx#:[id number] Oral 950 120 Other: # Voids 2 1 General: [Patient awake, alert and oriented times 3. Patient in no acute distress.] HEENT: [PERRL. EOMI. No pharyngeal erythema or exudate.] Neck: [No adenopathy.] Cardiac: [Heart regular in rate and rhythm. No S3. No S4. No clicks, rubs. No murmur.] Lungs: [Clear to auscultation bilaterally.] Abdomen: [No mass. No organomegaly. Bowel sounds presnt and normoactive in all 4 quadrants.] Extremes: [No edema no cyanosis no claudication normal pulses] : [] Musculoskeletal: [No joint erythema, edema or tenderness.] Skin: [No rash.] Neurologic: [No lateralizing deficits. CN II - XII grossly intact.] Lymphatic: [No adenopathy.] Results CBC & Chem 7: 03/13/17 12:43 Labs: Abnormal Lab Results - Last 24 Hours (Table) 03/13/17 03/13/17 03/13/17 Range/Units 12:43 17:16 20:24 RDW 15.7 H (11.5-15.5) % Lymphocytes # 0.9 L (1.0-4.8) k/uL POC Glucose (mg/dL) 241 H 276 H (75-99) mg/dL 03/14/17 Range/Units 07:39 RDW (11.5-15.5) % Lymphocytes # (1.0-4.8) k/uL POC Glucose (mg/dL) 209 H (75-99) mg/dL Thrombosis Risk Factor Assmnt - Choose All That Apply Any of the Below Risk Factors Present?: Yes Each Factor Represents 1 point: Age 41-60 years, Obesity (BMI >25) Other Risk Factors: Yes Other congenital or acquired thrombophilia - If yes, enter type in comment: No Thrombosis Risk Factor Assessment Total Risk Factor Score: 2 Thrombosis Risk Factor Assessment Level: Low Risk Assessment and Plan (1) Liposarcoma Status: Acute Plan: AIM chemotherapy for liposarcoma
[2017-03-14] MEDS: SALT AND SODA MOUTHWASH 1,000 ML PO SCH ×4 (08:22→23:08)
[2017-03-14] MEDS: ENOXAPARIN 40 MG/0.4 ML SYRINGE SQ SCH (08:22)
[2017-03-14] MEDS: HYDROcodone/APAP 5-325MG 1 EACH TAB PO PRN ×2 (08:26→17:38)
[2017-03-14 11:10] LABS: Glucose,Whole Blood 249 mg/dL (75-99)
[2017-03-14] MEDS ORDERED: ERGOCALCIFEROL 50,000 UNIT CAP PO SCH (12:00)
[2017-03-14 14:27] LABS: Anisocytosis Slight; Basophils # (A) 0.1 k/uL (0-0.2); Basophils % (A) 0 %; CH 28.1; CHCM 32.8; Eosinophils % (A) 0 %; HCT 35.8 % (34.0-46.0); HDW 2.98; HGB 11.3 gm/dL (11.4-16.0); Luc # (Auto) 0.15; Luc % (Auto) 1; Lymphocytes # (A) 0.5 k/uL (1.0-4.8); Lymphocytes % (A) 4 %; MCH 27.2 pg (25.0-35.0); MCHC 31.6 g/dL (31.0-37.0); Monocytes # (A) 0.9 k/uL (0-1.0); Monocytes % (A) 7 %; Neutrophils # (A) 10.8 k/uL (1.3-7.7); Neutrophils % (A) 88 %; RBC 4.16 m/uL (3.80-5.40); RDW 16.8 % (11.5-15.5); WBC 12.3 k/uL (3.8-10.6); WBC (Perox) 13.27
--- NOTE | 2017-03-14 16:14 | P.PN ---
Subjective Principal diagnosis: Liposarcoma, CIVI chemotherapy Pt seen today in follow up. She denies fever, oral irritation, nausea, vomiting , SOB, cough, abd pain, dysuria, hematuria, diarrhea, constipation, swelling, rash or pain. Objective - Vital Signs Vital signs: Vital Signs Temp 97.6 F 03/14/17 15:00 Pulse 74 03/14/17 15:00 Resp 16 03/14/17 15:00 BP 114/66 03/14/17 15:00 Pulse Ox 99 03/14/17 15:00 Intake & Output 03/13/17 03/14/17 03/14/17 18:59 06:59 18:59 Intake Total 100 3298 Balance 100 3298 Weight 89.5 kg Intake: Intake, IV Titration 100 2228 Amount DOXOrubicin HCL 50 mg In 1328 Sodium Chloride 0.9% 1, 000 ml @ 42.708 mls/hr IV DAILY@1430 [facility] Rx#: [id number] [place] 1,000 mg In Sodium 100 Chloride 0.9% 50 ml @ 240 mls/hr IV 1430,1830,2230 [facility] Rx#:[id number] Sodium Chloride 0.9% 1, 100 800 000 ml @ 100 mls/hr IV . Q10H [facility] Rx#:[id number] Oral 1070 Other: # Voids 1 2 - Constitutional General appearance: Present: cooperative, no acute distress, obese - EENT Eyes: Present: anicteric sclerae, PERRLA, normal appearance ENT: Present: normal oropharynx - Respiratory Respiratory: bilateral: CTA - Cardiovascular Rhythm: regular Heart sounds: normal: S1, S2 - Peripheral edema leg Peripheral Edema: bilateral: None - Gastrointestinal General gastrointestinal: Present: normal bowel sounds, soft. Absent: absent bowel sounds, decreased bowel sounds, distended, hepatomegaly, hyperactive bowel sounds, organomegaly, rigid, scaphoid, splenomegaly, tenderness, umbilical hernia, ventral hernia - Integumentary Integumentary: Present: normal - Neurologic Neurologic: Present: CNII-XII intact - Musculoskeletal Musculoskeletal: Present: strength equal bilaterally - Psychiatric Psychiatric: Present: A&O x's 3, appropriate affect, intact judgment & insight - Labs CBC & Chem 7: 03/14/17 13:10 Labs: Abnormal Lab Results - Last 24 Hours (Table) 03/13/17 03/13/17 03/14/17 Range/Units 17:16 20:24 07:39 WBC (3.8-10.6) k/uL Hgb (11.4-16.0) gm/dL RDW (11.5-15.5) % Neutrophils # (1.3-7.7) k/uL Lymphocytes # (1.0-4.8) k/uL POC Glucose (mg/dL) 241 H 276 H 209 H (75-99) mg/dL 03/14/17 03/14/17 Range/Units 11:08 13:10 WBC 12.3 H (3.8-10.6) k/uL Hgb 11.3 L (11.4-16.0) gm/dL RDW 16.8 H (11.5-15.5) % Neutrophils # 10.8 H (1.3-7.7) k/uL Lymphocytes # 0.5 L (1.0-4.8) k/uL POC Glucose (mg/dL) 249 H (75-99) mg/dL Assessment and Plan (1) Liposarcoma Narrative/Plan: Cont chemo without adjustment Status: Acute Plan: GI and DVT prophylaxis PCP following for medical management
[2017-03-14 16:57] LABS: Glucose,Whole Blood 99 mg/dL (75-99)
[2017-03-14 18:40] LABS: Glucose,Whole Blood 92 mg/dL (75-99)
[2017-03-14] MEDS: ALBUTEROL NEBULIZED 2.5 MG/3 ML INHALATION PRN (20:12)
[2017-03-14 20:21] LABS: Glucose,Whole Blood 119 mg/dL (75-99)
[2017-03-14] MEDS: LISINOPRIL 5 MG TAB PO SCH (20:37)
[2017-03-14] MEDS: ATORVASTATIN 20 MG TAB PO SCH (20:37)
[2017-03-14] MEDS: MONTELUKAST 10 MG TAB PO SCH (20:37)
[2017-03-14] MEDS: diphenhydrAMINE 50 MG CAP PO SCH (20:37)
[2017-03-14] MEDS: FENOFIBRATE 160 MG TAB PO SCH (20:38)
[2017-03-14] MEDS: ONDANSETRON 16 MG in SODIUM CHLORIDE 0.9% 50 ML IVPB SCH (20:41)
[2017-03-14] MEDS: FAMOTIDINE 20 MG/2 ML VIAL IV SCH (20:41)
[2017-03-14] MEDS: DEXAMETHASONE SOD PHOSPHATE 10 MG/ML 1 ML VIAL IV SCH (20:41)
[2017-03-14 21:26] LABS: Glucose,Whole Blood 154 mg/dL (75-99)
[2017-03-14] MEDS: IFOSFAMIDE IV SCH (21:51)
[2017-03-14] MEDS: DOXORUBICIN HCL IV SCH (21:51)
[2017-03-15] MEDS: SODIUM CHLORIDE 0.9% IV SCH ×5 (01:46→22:19)
[2017-03-15] MEDS: MESNA IV SCH ×3 (01:46→21:26)
[2017-03-15 06:02] LABS: Anisocytosis Slight; Basophils % (A) 0 %; CH 28.2; CHCM 32.7; Eosinophils % (A) 0 %; HCT 32.8 % (34.0-46.0); HDW 2.92; HGB 10.5 gm/dL (11.4-16.0); Luc # (Auto) 0.07; Luc % (Auto) 1; Lymphocytes # (A) 0.6 k/uL (1.0-4.8); Lymphocytes % (A) 7 %; MCH 27.8 pg (25.0-35.0); MCHC 32.1 g/dL (31.0-37.0); MCV 86.6 fL (80.0-100.0); Mean Platelet Volume 8.1; Monocytes # (A) 0.4 k/uL (0-1.0); Monocytes % (A) 5 %; Neutrophils # (A) 6.8 k/uL (1.3-7.7); Neutrophils % (A) 87 %; RBC 3.78 m/uL (3.80-5.40); RDW 16.9 % (11.5-15.5); WBC 7.8 k/uL (3.8-10.6); WBC (Perox) 8.29
[2017-03-15 07:47] LABS: Glucose,Whole Blood 166 mg/dL (75-99)
[2017-03-15] MEDS: APIDRA SQ SCH ×4 (08:05→21:28)
[2017-03-15] MEDS: SODIUM CHLORIDE 0.9% 1,000 ML IV SCH ×2 (08:05→16:54)
[2017-03-15] MEDS: TOUJEO SQ SCH ×2 (08:08→21:31)
[2017-03-15] MEDS: metFORMIN 500 MG TAB PO SCH ×2 (08:10→17:32)
[2017-03-15] MEDS: SALT AND SODA MOUTHWASH 1,000 ML PO SCH ×4 (08:10→21:26)
[2017-03-15] MEDS: ENOXAPARIN 40 MG/0.4 ML SYRINGE SQ SCH (08:10)
[2017-03-15] MEDS: METOPROLOL TARTRATE 25 MG TAB PO SCH ×2 (08:11→21:26)
[2017-03-15] MEDS: LORATADINE 10 MG TAB PO SCH (08:11)
[2017-03-15] MEDS: ONDANSETRON 4 MG/2 ML VIAL IVP PRN ×2 (08:22→14:24)
[2017-03-15 09:02] LABS: ALT 37 U/L (9-52); AST 15 U/L (14-36); Alkaline Phosphatase 76 U/L (38-126); Anion Gap 9 mmol/L; Blood Urea Nitrogen 11 mg/dL (7-17); Carbon Dioxide 23 mmol/L (22-30); Chloride 109 mmol/L (98-107); Glucose 153 mg/dL (74-99); Non-African American GFR(MDRD) >60 (>60 ml/min/1.73 sqM); Potassium 4.4 mmol/L (3.5-5.1); Sodium 141 mmol/L (137-145); Total Bilirubin 0.2 mg/dL (0.2-1.3); Total Protein 5.7 g/dL (6.3-8.2)
[2017-03-15] MEDS: ALPRAZolam 0.25 MG TAB PO PRN (10:55)
[2017-03-15 11:47] LABS: Glucose,Whole Blood 120 mg/dL (75-99)
[2017-03-15] MEDS: diphenhydrAMINE 25 MG CAP PO PRN (16:02)
--- NOTE | 2017-03-15 16:18 | P.PN ---
Subjective Principal diagnosis: Second course AIM chemotherapy for liposarcoma This 56-year-old female well-known to the practice who is presenting for a second course of AIM chemotherapy for liposarcoma. This patient complains of pruritus today we will prescribe Benadryl. Objective - Vital Signs Vital signs: Vital Signs Temp 98.1 F 03/15/17 07:00 Pulse 72 03/15/17 07:00 Resp 16 03/15/17 08:00 BP 131/61 03/15/17 07:00 Pulse Ox 96 03/15/17 07:00 Intake & Output 03/14/17 03/15/17 03/15/17 18:59 06:59 18:59 Intake Total 1444 1136 Balance 1444 1136 Intake: Intake, IV Titration 1084 1136 Amount DOXOrubicin HCL 50 mg In 84 336 Sodium Chloride 0.9% 1, 000 ml @ 42.708 mls/hr IV DAILY@1430 [facility] Rx#: [id number] Ifosfamide 5,150 mg In 500 Sodium Chloride 0.9% 500 ml @ 166.667 mls/hr IV DAILY@1500 [facility] Rx#: [id number] [place] 1,000 mg In Sodium 100 Chloride 0.9% 50 ml @ 240 mls/hr IV 1430,1830,2230 [facility] Rx#:[id number] Sodium Chloride 0.9% 1, 400 800 000 ml @ 100 mls/hr IV . Q10H [facility] Rx#:[id number] Oral 360 Other: # Voids 2 2 3 - Exam General: [Patient awake, alert and oriented times 3. Patient in no acute distress.] HEENT: [PERRL. EOMI. No pharyngeal erythema or exudate.] Neck: [No adenopathy.] Cardiac: [Heart regular in rate and rhythm. No S3. No S4. No clicks, rubs. No murmur.] Lungs: [Clear to auscultation bilaterally.] Abdomen: [No mass. No organomegaly. Bowel sounds presnt and normoactive in all 4 quadrants.] Mild diffuse abdominal pain Extremes: [No edema no cyanosis no claudication normal pulses] : [] Musculoskeletal: [No joint erythema, edema or tenderness.] Skin: Itching Neurologic: [No lateralizing deficits. CN II - XII grossly intact.] Lymphatic: [No adenopathy.] - Labs CBC & Chem 7: 03/15/17 05:30 03/15/17 08:30 Labs: Abnormal Lab Results - Last 24 Hours (Table) 03/14/17 03/14/17 03/15/17 Range/Units 20:20 21:22 05:30 RBC 3.78 L (3.80-5.40) m/uL Hgb 10.5 L (11.4-16.0) gm/dL Hct 32.8 L (34.0-46.0) % RDW 16.9 H (11.5-15.5) % Plt Count 143 L (150-450) k/uL Lymphocytes # 0.6 L (1.0-4.8) k/uL Chloride (98-107) mmol/L Glucose (74-99) mg/dL POC Glucose (mg/dL) 119 H 154 H (75-99) mg/dL Total Protein (6.3-8.2) g/dL Albumin (3.5-5.0) g/dL 03/15/17 03/15/17 03/15/17 Range/Units 07:35 08:30 11:45 RBC (3.80-5.40) m/uL Hgb (11.4-16.0) gm/dL Hct (34.0-46.0) % RDW (11.5-15.5) % Plt Count (150-450) k/uL Lymphocytes # (1.0-4.8) k/uL Chloride 109 H (98-107) mmol/L Glucose 153 H (74-99) mg/dL POC Glucose (mg/dL) 166 H 120 H (75-99) mg/dL Total Protein 5.7 L (6.3-8.2) g/dL Albumin 3.2 L (3.5-5.0) g/dL Assessment and Plan (1) Liposarcoma Status: Acute Plan: AIM chemotherapy for liposarcoma Patient tolerating well
[2017-03-15 16:46] LABS: Glucose,Whole Blood 120 mg/dL (75-99)
--- NOTE | 2017-03-15 17:41 | P.PN ---
Subjective Principal diagnosis: Liposarcoma, CIVI chemotherapy Pt seen today in follow up. She has facial and chest flushing, started last night, did get a little better after benadryl. Denies fever, oral irritation, mild nausea this AM, no vomiting, SOB, cough, abd pain, dysuria, hematuria, diarrhea, constipation, swelling, rash or pain. She is ambulating independently Objective - Vital Signs Vital signs: Vital Signs Temp 97.9 F 03/15/17 15:00 Pulse 72 03/15/17 16:15 Resp 16 03/15/17 16:15 BP 103/57 03/15/17 15:00 Pulse Ox 95 03/15/17 15:00 Intake & Output 03/14/17 03/15/17 03/15/17 18:59 06:59 18:59 Intake Total 1444 1136 Balance 1444 1136 Intake: Intake, IV Titration 1084 1136 Amount DOXOrubicin HCL 50 mg In 84 336 Sodium Chloride 0.9% 1, 000 ml @ 42.708 mls/hr IV DAILY@1430 [facility] Rx#: [id number] Ifosfamide 5,150 mg In 500 Sodium Chloride 0.9% 500 ml @ 166.667 mls/hr IV DAILY@1500 [facility] Rx#: [id number] [place] 1,000 mg In Sodium 100 Chloride 0.9% 50 ml @ 240 mls/hr IV 1430,1830,2230 [facility] Rx#:[id number] Sodium Chloride 0.9% 1, 400 800 000 ml @ 100 mls/hr IV . Q10H [facility] Rx#:[id number] Oral 360 Other: # Voids 2 2 3 - Constitutional General appearance: Present: cooperative, no acute distress, obese - EENT Eyes: Present: anicteric sclerae, normal appearance ENT: Present: normal oropharynx - Respiratory Respiratory: bilateral: CTA - Cardiovascular Rhythm: regular Heart sounds: normal: S1, S2 - Peripheral edema leg Peripheral Edema: bilateral: None - Gastrointestinal General gastrointestinal: Present: normal bowel sounds, soft. Absent: absent bowel sounds, decreased bowel sounds, distended, hepatomegaly, hyperactive bowel sounds, organomegaly, rigid, scaphoid, splenomegaly, tenderness, umbilical hernia, ventral hernia - Integumentary Integumentary: Present: normal - Neurologic Neurologic: Present: CNII-XII intact - Musculoskeletal Musculoskeletal: Present: strength equal bilaterally - Psychiatric Psychiatric: Present: A&O x's 3, appropriate affect, intact judgment & insight - Labs CBC & Chem 7: 03/15/17 05:30 03/15/17 08:30 Labs: Abnormal Lab Results - Last 24 Hours (Table) 03/14/17 03/14/17 03/15/17 Range/Units 20:20 21:22 05:30 RBC 3.78 L (3.80-5.40) m/uL Hgb 10.5 L (11.4-16.0) gm/dL Hct 32.8 L (34.0-46.0) % RDW 16.9 H (11.5-15.5) % Plt Count 143 L (150-450) k/uL Lymphocytes # 0.6 L (1.0-4.8) k/uL Chloride (98-107) mmol/L Glucose (74-99) mg/dL POC Glucose (mg/dL) 119 H 154 H (75-99) mg/dL Total Protein (6.3-8.2) g/dL Albumin (3.5-5.0) g/dL 03/15/17 03/15/17 03/15/17 Range/Units 07:35 08:30 11:45 RBC (3.80-5.40) m/uL Hgb (11.4-16.0) gm/dL Hct (34.0-46.0) % RDW (11.5-15.5) % Plt Count (150-450) k/uL Lymphocytes # (1.0-4.8) k/uL Chloride 109 H (98-107) mmol/L Glucose 153 H (74-99) mg/dL POC Glucose (mg/dL) 166 H 120 H (75-99) mg/dL Total Protein 5.7 L (6.3-8.2) g/dL Albumin 3.2 L (3.5-5.0) g/dL 03/15/17 Range/Units 16:44 RBC (3.80-5.40) m/uL Hgb (11.4-16.0) gm/dL Hct (34.0-46.0) % RDW (11.5-15.5) % Plt Count (150-450) k/uL Lymphocytes # (1.0-4.8) k/uL Chloride (98-107) mmol/L Glucose (74-99) mg/dL POC Glucose (mg/dL) 120 H (75-99) mg/dL Total Protein (6.3-8.2) g/dL Albumin (3.5-5.0) g/dL Assessment and Plan (1) Liposarcoma Narrative/Plan: Cont chemo without adjustment, daily labs, CMP in am. Status: Acute Plan: GI and DVT prophylaxis PCP following for medical management
[2017-03-15 20:13] LABS: Glucose,Whole Blood 173 mg/dL (75-99)
[2017-03-15] MEDS: HYDROcodone/APAP 5-325MG 1 EACH TAB PO PRN (20:14)
[2017-03-15] MEDS: LOPERAMIDE 2 MG CAP PO PRN (20:14)
[2017-03-15] MEDS: FENOFIBRATE 160 MG TAB PO SCH (20:15)
[2017-03-15] MEDS: MONTELUKAST 10 MG TAB PO SCH (20:15)
[2017-03-15] MEDS: ATORVASTATIN 20 MG TAB PO SCH (20:16)
[2017-03-15] MEDS: diphenhydrAMINE 50 MG CAP PO SCH (21:26)
[2017-03-15] MEDS: LISINOPRIL 5 MG TAB PO SCH (21:26)
[2017-03-15] MEDS: ONDANSETRON 16 MG in SODIUM CHLORIDE 0.9% 50 ML IVPB SCH (21:27)
[2017-03-15] MEDS: FAMOTIDINE 20 MG/2 ML VIAL IV SCH (21:27)
[2017-03-15] MEDS: DEXAMETHASONE SOD PHOSPHATE 10 MG/ML 1 ML VIAL IV SCH (21:28)
[2017-03-15] MEDS: IFOSFAMIDE IV SCH (22:19)
[2017-03-15] MEDS: DOXORUBICIN HCL IV SCH (22:19)
[2017-03-16] MEDS: ALPRAZolam 0.25 MG TAB PO PRN ×2 (01:58→21:21)
[2017-03-16] MEDS: MESNA IV SCH ×5 (02:28→23:49)
[2017-03-16] MEDS: SODIUM CHLORIDE 0.9% IV SCH ×6 (02:28→23:49)
[2017-03-16 07:08] LABS: Glucose,Whole Blood 145 mg/dL (75-99)
[2017-03-16 07:27] VITALS: RESP 16
[2017-03-16] MEDS: APIDRA SQ SCH ×4 (08:39→22:57)
[2017-03-16] MEDS: metFORMIN 500 MG TAB PO SCH ×2 (08:42→17:33)
[2017-03-16] MEDS: LORATADINE 10 MG TAB PO SCH (08:42)
[2017-03-16] MEDS: SALT AND SODA MOUTHWASH 1,000 ML PO SCH ×4 (08:42→21:24)
[2017-03-16] MEDS: ENOXAPARIN 40 MG/0.4 ML SYRINGE SQ SCH (08:42)
[2017-03-16] MEDS: TOUJEO SQ SCH ×2 (08:43→22:57)
[2017-03-16] MEDS: METOPROLOL TARTRATE 25 MG TAB PO SCH ×2 (08:43→21:24)
[2017-03-16] MEDS: SODIUM CHLORIDE 0.9% 1,000 ML IV SCH ×2 (08:45→17:35)
[2017-03-16] MEDS: ONDANSETRON 4 MG/2 ML VIAL IVP PRN ×2 (11:18→21:30)
[2017-03-16 11:31] LABS: Glucose,Whole Blood 140 mg/dL (75-99)
[2017-03-16] MEDS: LOPERAMIDE 2 MG CAP PO PRN (11:45)
[2017-03-16 11:54] LABS: Anisocytosis Slight; Basophils % (A) 0 %; CH 27.2; CHCM 32.4; Eosinophils % (A) 0 %; HCT 33.6 % (34.0-46.0); HDW 2.92; HGB 11.2 gm/dL (11.4-16.0); Luc # (Auto) 0.04; Luc % (Auto) 1; Lymphocytes # (A) 0.6 k/uL (1.0-4.8); Lymphocytes % (A) 9 %; MCH 28.1 pg (25.0-35.0); MCHC 33.4 g/dL (31.0-37.0); MCV 84.2 fL (80.0-100.0); Mean Platelet Volume 8.1; Monocytes # (A) 0.5 k/uL (0-1.0); Monocytes % (A) 8 %; Neutrophils # (A) 4.9 k/uL (1.3-7.7); Neutrophils % (A) 82 %; RBC 3.99 m/uL (3.80-5.40)
[2017-03-16 12:05] LABS: ALT 38 U/L (9-52); AST 19 U/L (14-36); Alkaline Phosphatase 73 U/L (38-126); Anion Gap 9 mmol/L; Blood Urea Nitrogen 12 mg/dL (7-17); Carbon Dioxide 22 mmol/L (22-30); Chloride 108 mmol/L (98-107); Glucose 142 mg/dL (74-99); Non-African American GFR(MDRD) >60 (>60 ml/min/1.73 sqM); Sodium 139 mmol/L (137-145); Total Bilirubin 0.3 mg/dL (0.2-1.3); Total Protein 5.4 g/dL (6.3-8.2)
[2017-03-16] MEDS: diphenhydrAMINE 25 MG CAP PO PRN (12:28)
[2017-03-16] MEDS: HYDROcodone/APAP 5-325MG 1 EACH TAB PO PRN ×2 (12:28→21:21)
--- NOTE | 2017-03-16 12:35 | P.PN ---
Subjective Principal diagnosis: Liposarcoma, CIVI chemotherapy Pt seen today in follow up. She had a bad day yesterday with nausea, this is a little better today, facial and chest flushing stable, not progressive. Denies fever, oral irritation, vomiting, SOB, cough, abd pain, dysuria, hematuria, diarrhea, constipation, swelling, rash or pain. She is ambulating independently Objective - Vital Signs Vital signs: Vital Signs Temp 98.1 F 03/16/17 07:00 Pulse 72 03/16/17 07:00 Resp 16 03/16/17 07:00 BP 120/70 03/16/17 07:00 Pulse Ox 98 03/16/17 07:00 Intake & Output 03/15/17 03/16/17 03/16/17 18:59 06:59 18:59 Intake Total 1136 1732 Balance 1136 1732 Intake: IV 1632 DOXOrubicin HCL 50 mg In 532 Sodium Chloride 0.9% 1, 000 ml @ 42.708 mls/hr IV DAILY@1430 [facility] Rx#: [id number] Ifosfamide 5,150 mg In 500 Sodium Chloride 0.9% 500 ml @ 166.667 mls/hr IV DAILY@1500 [facility] Rx#: [id number] [place] 1,000 mg In Sodium 150 Chloride 0.9% 50 ml @ 240 mls/hr IV 1430,1830,2230 [facility] Rx#:[id number] Ondansetron 16 mg In 50 Sodium Chloride 0.9% 50 ml @ 100 mls/hr IVPB DAILY@1400 [facility] Rx#: [id number] Sodium Chloride 0.9% 1, 400 000 ml @ 100 mls/hr IV . Q10H [facility] Rx#:[id number] Intake, IV Titration 1136 Amount DOXOrubicin HCL 50 mg In 336 Sodium Chloride 0.9% 1, 000 ml @ 42.708 mls/hr IV DAILY@1430 [facility] Rx#: [id number] Sodium Chloride 0.9% 1, 800 000 ml @ 100 mls/hr IV . Q10H [facility] Rx#:[id number] Oral 100 Other: Voiding Method Toilet Toilet # Voids 3 - Constitutional General appearance: Present: cooperative, no acute distress, obese - EENT Eyes: Present: anicteric sclerae ENT: Present: normal oropharynx - Respiratory Respiratory: bilateral: CTA - Cardiovascular Heart sounds: normal: S1, S2 - Peripheral edema leg Peripheral Edema: bilateral: None - Gastrointestinal General gastrointestinal: Present: normal bowel sounds, soft - Integumentary Integumentary: Present: normal - Neurologic Neurologic: Present: CNII-XII intact - Musculoskeletal Musculoskeletal: Present: strength equal bilaterally - Psychiatric Psychiatric: Present: A&O x's 3, appropriate affect, intact judgment & insight - Labs CBC & Chem 7: 03/16/17 11:12 03/15/17 08:30 Labs: Abnormal Lab Results - Last 24 Hours (Table) 03/15/17 03/15/17 03/16/17 Range/Units 16:44 20:12 06:54 Hgb (11.4-16.0) gm/dL Hct (34.0-46.0) % RDW (11.5-15.5) % Plt Count (150-450) k/uL Lymphocytes # (1.0-4.8) k/uL POC Glucose (mg/dL) 120 H 173 H 145 H (75-99) mg/dL 03/16/17 03/16/17 Range/Units 11:12 11:26 Hgb 11.2 L (11.4-16.0) gm/dL Hct 33.6 L (34.0-46.0) % RDW 16.0 H (11.5-15.5) % Plt Count 138 L (150-450) k/uL Lymphocytes # 0.6 L (1.0-4.8) k/uL POC Glucose (mg/dL) 140 H (75-99) mg/dL Assessment and Plan (1) Liposarcoma Narrative/Plan: Cont chemo without adjustment. Daily labs continue. Supportive and PRN meds reviewed. Pt doing well with treatments. Status: Acute Plan: Anemia and thrombocytopenia secondary to chemotherapy-very mild at this time, no interventions, ongoing monitoring. Pt has follow up for Monday in office to receive GCSF and have CBC evaluated. Pt is aware of this appt. GI and DVT prophylaxis PCP following for medical management
[2017-03-16] MEDS: ONDANSETRON 16 MG in SODIUM CHLORIDE 0.9% 50 ML IVPB SCH (14:10)
[2017-03-16] MEDS: FAMOTIDINE 20 MG/2 ML VIAL IV SCH (14:13)
[2017-03-16] MEDS: DEXAMETHASONE SOD PHOSPHATE 10 MG/ML 1 ML VIAL IV SCH (14:13)
[2017-03-16] MEDS: IFOSFAMIDE IV SCH (15:23)
[2017-03-16 16:56] LABS: Glucose,Whole Blood 130 mg/dL (75-99)
--- NOTE | 2017-03-16 17:57 | P.PN ---
Subjective Principal diagnosis: Second course AIM chemotherapy for liposarcoma This 56-year-old female well-known to the practice who is presenting for a second course of AIM chemotherapy for liposarcoma. This patient complains of pruritus today we will prescribe Benadryl. Objective - Vital Signs Vital signs: Vital Signs Temp 98.4 F 03/16/17 14:31 Pulse 66 03/16/17 14:31 Resp 16 03/16/17 14:31 BP 117/64 03/16/17 14:31 Pulse Ox 96 03/16/17 14:31 Intake & Output 03/15/17 03/16/17 03/16/17 18:59 06:59 18:59 Intake Total 1136 1732 Balance 1136 1732 Intake: IV 1632 DOXOrubicin HCL 50 mg In 532 Sodium Chloride 0.9% 1, 000 ml @ 42.708 mls/hr IV DAILY@1430 [facility] Rx#: [id number] Ifosfamide 5,150 mg In 500 Sodium Chloride 0.9% 500 ml @ 166.667 mls/hr IV DAILY@1500 [facility] Rx#: [id number] [place] 1,000 mg In Sodium 150 Chloride 0.9% 50 ml @ 240 mls/hr IV 1430,1830,2230 [facility] Rx#:[id number] Ondansetron 16 mg In 50 Sodium Chloride 0.9% 50 ml @ 100 mls/hr IVPB DAILY@1400 [facility] Rx#: [id number] Sodium Chloride 0.9% 1, 400 000 ml @ 100 mls/hr IV . Q10H [facility] Rx#:[id number] Intake, IV Titration 1136 Amount DOXOrubicin HCL 50 mg In 336 Sodium Chloride 0.9% 1, 000 ml @ 42.708 mls/hr IV DAILY@1430 [facility] Rx#: [id number] Sodium Chloride 0.9% 1, 800 000 ml @ 100 mls/hr IV . Q10H [facility] Rx#:[id number] Oral 100 Other: Voiding Method Toilet Toilet # Voids 3 2 # Bowel Movements 2 - Exam General: [Patient awake, alert and oriented times 3. Patient in no acute distress.] HEENT: [PERRL. EOMI. No pharyngeal erythema or exudate.] Neck: [No adenopathy.] Cardiac: [Heart regular in rate and rhythm. No S3. No S4. No clicks, rubs. No murmur.] Lungs: [Clear to auscultation bilaterally.] Abdomen: [No mass. No organomegaly. Bowel sounds presnt and normoactive in all 4 quadrants.] Mild diffuse abdominal pain Extremes: [No edema no cyanosis no claudication normal pulses] : [] Musculoskeletal: [No joint erythema, edema or tenderness.] Skin: Itching Neurologic: [No lateralizing deficits. CN II - XII grossly intact.] Lymphatic: [No adenopathy.] - Labs CBC & Chem 7: 03/16/17 11:12 03/16/17 11:12 Labs: Abnormal Lab Results - Last 24 Hours (Table) 03/15/17 03/16/17 03/16/17 Range/Units 20:12 06:54 11:12 Hgb 11.2 L (11.4-16.0) gm/dL Hct 33.6 L (34.0-46.0) % RDW 16.0 H (11.5-15.5) % Plt Count 138 L (150-450) k/uL Lymphocytes # 0.6 L (1.0-4.8) k/uL Chloride (98-107) mmol/L Glucose (74-99) mg/dL POC Glucose (mg/dL) 173 H 145 H (75-99) mg/dL Total Protein (6.3-8.2) g/dL Albumin (3.5-5.0) g/dL 03/16/17 03/16/17 03/16/17 Range/Units 11:12 11:26 16:54 Hgb (11.4-16.0) gm/dL Hct (34.0-46.0) % RDW (11.5-15.5) % Plt Count (150-450) k/uL Lymphocytes # (1.0-4.8) k/uL Chloride 108 H (98-107) mmol/L Glucose 142 H (74-99) mg/dL POC Glucose (mg/dL) 140 H 130 H (75-99) mg/dL Total Protein 5.4 L (6.3-8.2) g/dL Albumin 3.0 L (3.5-5.0) g/dL Assessment and Plan (1) Liposarcoma Status: Acute Plan: AIM chemotherapy for liposarcoma Patient tolerating well
[2017-03-16 20:14] LABS: Glucose,Whole Blood 221 mg/dL (75-99)
[2017-03-16] MEDS: diphenhydrAMINE 50 MG CAP PO SCH (21:23)
[2017-03-16] MEDS: FENOFIBRATE 160 MG TAB PO SCH (21:23)
[2017-03-16] MEDS: ATORVASTATIN 20 MG TAB PO SCH (21:23)
[2017-03-16] MEDS: LISINOPRIL 5 MG TAB PO SCH (21:24)
[2017-03-16] MEDS: MONTELUKAST 10 MG TAB PO SCH (21:24)
[2017-03-17 07:03] LABS: Anisocytosis Slight; Basophils % (A) 0 %; CH 28.4; CHCM 33.1; Eosinophils % (A) 0 %; HCT 35.2 % (34.0-46.0); HGB 11.4 gm/dL (11.4-16.0); Luc # (Auto) 0.06; Luc % (Auto) 1; Lymphocytes # (A) 0.7 k/uL (1.0-4.8); Lymphocytes % (A) 15 %; MCH 27.9 pg (25.0-35.0); MCHC 32.4 g/dL (31.0-37.0); Mean Platelet Volume 7.9; Monocytes # (A) 0.2 k/uL (0-1.0); Monocytes % (A) 5 %; Neutrophils # (A) 3.7 k/uL (1.3-7.7); Neutrophils % (A) 78 %; RBC 4.09 m/uL (3.80-5.40); RDW 16.7 % (11.5-15.5); WBC 4.7 k/uL (3.8-10.6); WBC (Perox) 4.77
[2017-03-17 07:18] LABS: ALT 41 U/L (9-52); AST 21 U/L (14-36); Alkaline Phosphatase 71 U/L (38-126); Anion Gap 8 mmol/L; Blood Urea Nitrogen 11 mg/dL (7-17); Calcium 9.1 mg/dL (8.4-10.2); Carbon Dioxide 22 mmol/L (22-30); Chloride 110 mmol/L (98-107); Glucose 94 mg/dL (74-99); Non-African American GFR(MDRD) >60 (>60 ml/min/1.73 sqM); Potassium 3.9 mmol/L (3.5-5.1); Sodium 140 mmol/L (137-145); Total Bilirubin 0.5 mg/dL (0.2-1.3); Total Protein 5.6 g/dL (6.3-8.2)
[2017-03-17 07:40] LABS: Glucose,Whole Blood 93 mg/dL (75-99)
[2017-03-17] MEDS: GABAPENTIN 600 MG PO SCH (07:42)
[2017-03-17 08:29] VITALS: BP 110/60; PULSE 69; TEMP 97.4
[2017-03-17] MEDS: APIDRA SQ SCH ×2 (08:41→11:47)
[2017-03-17] MEDS: TOUJEO SQ SCH (08:52)
[2017-03-17] MEDS: ONDANSETRON 4 MG/2 ML VIAL IVP PRN (08:54)
[2017-03-17] MEDS: ENOXAPARIN 40 MG/0.4 ML SYRINGE SQ SCH (08:55)
[2017-03-17] MEDS: metFORMIN 500 MG TAB PO SCH (08:55)
[2017-03-17] MEDS: METOPROLOL TARTRATE 25 MG TAB PO SCH (08:56)
[2017-03-17] MEDS: SALT AND SODA MOUTHWASH 1,000 ML PO SCH ×2 (08:56→12:01)
[2017-03-17] MEDS: SODIUM CHLORIDE 0.9% 1,000 ML IV SCH ×2 (08:56→12:01)
[2017-03-17] MEDS: LORATADINE 10 MG TAB PO SCH (08:56)
[2017-03-17 11:43] LABS: Glucose,Whole Blood 96 mg/dL (75-99)
[2017-03-17] MEDS: ALPRAZolam 0.25 MG TAB PO PRN (15:39)
[2017-03-17 15:40] LABS: Glucose,Whole Blood 98 mg/dL (75-99)
[2017-03-17 17:17] LABS: Glucose,Whole Blood 98 mg/dL (75-99)
--- NOTE | 2017-03-17 17:23 | P.DS ---
Providers Date of admission: 03/13/17 08:13 Expected date of discharge: 03/17/17 Attending physician: Pal Mukherjee Consults: 03/13/17 09:57 Consult Physician Routine Consulting Provider: Bay Montero Jr Consult Reason/Comments: medical management Do you want consulting provider notified?: Yes Primary care physician: [facility] Course: The patient has a diagnosis of high-grade liposarcoma, treated with partial resection. Post surgery, she was seen at the [facility], and chemotherapy with the AIM protocol was recommended. She was admitted for cycle #2. She received the high dose infusional chemotherapy per protocol, with monitoring with clinical exams, as well as labs. She tolerated treatment quite well without any untoward side effects. Blood counts remained fairly stable. Prior to her admission, she had had an MRI of the spine done for unrelated complaints and mentioned a mass in the lung. She therefore had a computed tomography scan done prior to admission, which showed bilateral lung nodules, the largest 5 mm which were stable from her initial study in 01/14. Procedures: High dose infusional chemotherapy Patient Condition at Discharge: Fair Plan - Discharge Summary New Discharge Prescriptions: No Action Insulin Glulisine [Apidra] See Protocol SQ HS Insulin Glargine,Hum.rec.anlog [Toujeo Solostar] 20 units SQ HS Insulin Glargine,Hum.rec.anlog [Toujeo Solostar] 50 units SQ QAM metFORMIN HCL ER [Glucophage Xr] 500 mg PO BID Ibuprofen [Motrin] 200 - 400 mg PO Q6HR PRN PRN Reason: Mild Pain Enalapril [Vasotec] 2.5 mg PO HS ALPRAZolam [Xanax] 0.25 mg PO Q6H PRN PRN Reason: Anxiety/Insomnia Albuterol Sulfate [Proair Hfa] 2 puff INHALATION RT-Q6H PRN PRN Reason: Shortness Of Breath Fenofibrate [Lofibra] 160 mg PO HS Gabapentin [Gralise] 600 mg PO HS Montelukast [Singulair] 10 mg PO HS Famotidine [Pepcid] 20 mg PO HS PRN PRN Reason: Indigestion Atorvastatin [Lipitor] 20 mg PO HS Ergocalciferol [Vitamin D2 (DRISDOL)] 50,000 unit PO TU Loratadine [Claritin] 10 mg PO QAM Metoprolol Tartrate [Lopressor] 25 mg PO BID Ondansetron Odt [Zofran ODT] 4 mg PO Q8HR PRN PRN Reason: Nausea And Vomiting Wheat Dextrin [Benefiber] 1 packet PO DAILY PRN PRN Reason: Constipation Insulin Glulisine [Apidra] 25 unit SQ TID HYDROcodone/APAP 5-325MG [[place] 5-325] 1 tab PO Q4HR PRN #60 tab PRN Reason: Pain Loperamide [Imodium] 2 mg PO DAILY PRN PRN Reason: Diarrhea Discharge Medication List ALPRAZolam [Xanax] 0.25 mg PO Q6H PRN 12/31/16 [History] Albuterol Sulfate [Proair Hfa] 2 puff INHALATION RT-Q6H PRN 12/31/16 [History] Atorvastatin [Lipitor] 20 mg PO HS 12/31/16 [History] Enalapril [Vasotec] 2.5 mg PO HS 12/31/16 [History] Ergocalciferol [Vitamin D2 (DRISDOL)] 50,000 unit PO TU 12/31/16 [History] Famotidine [Pepcid] 20 mg PO HS PRN 12/31/16 [History] Fenofibrate [Lofibra] 160 mg PO HS 12/31/16 [History] Gabapentin [Gralise] 600 mg PO HS 12/31/16 [History] Ibuprofen [Motrin] 200 - 400 mg PO Q6HR PRN 12/31/16 [History] Insulin Glargine,Hum.rec.anlog [Toujeo Solostar] 20 units SQ HS 12/31/16 [ History] Insulin Glargine,Hum.rec.anlog [Toujeo Solostar] 50 units SQ QA 12/31/16 [ History] Insulin Glulisine [Apidra] See Protocol SQ 12/31/16 [History] Loratadine [Claritin] 10 mg PO QAM 12/31/16 [History] Metoprolol Tartrate [Lopressor] 25 mg PO BID 12/31/16 [History] Montelukast [Singulair] 10 mg PO HS 12/31/16 [History] metFORMIN HCL ER [Glucophage Xr] 500 mg PO BID 12/31/16 [History] Ondansetron Odt [Zofran ODT] 4 mg PO Q8HR PRN 02/07/17 [History] Wheat Dextrin [Benefiber] 1 packet PO DAILY PRN 02/07/17 [History] Insulin Glulisine [Apidra] 25 unit SQ TID 02/20/17 [History] HYDROcodone/APAP 5-325MG [[place] 5-325] 1 tab PO Q4HR PRN #60 tab 02/24/17 [Rx] Loperamide [Imodium] 2 mg PO DAILY PRN 03/13/17 [History] Follow up Appointment(s)/Referral(s): Pal Mukherjee MD [STAFF PHYSICIAN] - 03/20/17 9:30 am (this appt is at [facility] site. [phone]. Pt will make more appts for lab draws) Discharge Disposition: HOME SELF-CARE
== END 2017-03-17 17:57 | disposition home or self-care (01) | DRG 848 ==
LOC: 5ONC 08:13
PROVIDERS: ADMIT Internal Medicine Hematology & Oncology; ATTEND Internal Medicine Hematology & Oncology
DX: Z51.11 Encounter for antineoplastic chemotherapy (principal); D69.59 Other secondary thrombocytopenia; C76.2 Malignant neoplasm of abdomen; D64.81 Anemia due to antineoplastic chemotherapy; I10 Essential (primary) hypertension; E10.9 Type 1 diabetes mellitus without complications; E78.5 Hyperlipidemia, unspecified; J45.909 Unspecified asthma, uncomplicated; K21.9 Gastro-esophageal reflux disease without esophagitis; L29.9 Pruritus, unspecified; M17.0 Bilateral primary osteoarthritis of knee; M79.7 Fibromyalgia; Z79.4 Long term (current) use of insulin; Z79.84 Long term (current) use of oral hypoglycemic drugs; Z79.899 Other long term (current) drug therapy; Z88.2 Allergy status to sulfonamides; Z88.0 Allergy status to penicillin; T45.1X5A Adverse effect of antineoplastic and immunosuppressive drugs, initial encounter
CPT/HCPCS: 80053; 85025; 94640

== ENCOUNTER 2017-04-04 08:08 | Inpatient (IN) | payer MEDICAID ==
[2017-04-04] MEDS ORDERED: DIPHENOX-ATROP 2.5-0.025 MG 1 EACH TAB PO PRN (08:43)
[2017-04-04] MEDS ORDERED: ERGOCALCIFEROL 50,000 UNIT CAP PO SCH (09:00)
[2017-04-04 09:23] LABS: Anisocytosis Slight; Basophils # (A) 0.1 k/uL (0-0.2); Basophils % (A) 1 %; CH 29.1; CHCM 34.5; Eosinophils % (A) 0 %; HCT 34.6 % (34.0-46.0); HGB 11.4 gm/dL (11.4-16.0); Luc % (Auto) 2; Lymphocytes # (A) 0.6 k/uL (1.0-4.8); Lymphocytes % (A) 5 %; MCV 84.8 fL (80.0-100.0); Mean Platelet Volume 8.2; Monocytes # (A) 0.8 k/uL (0-1.0); Monocytes % (A) 7 %; Neutrophils # (A) 9.8 k/uL (1.3-7.7); Neutrophils % (A) 86 %; Poikilocytosis Slight; RBC 4.08 m/uL (3.80-5.40); WBC 11.5 k/uL (3.8-10.6); WBC (Perox) 11.81
[2017-04-04] MEDS ORDERED: FOSAPREPITANT DIMEGLUMINE 150 MG in SODIUM CHLORIDE 0.9% 145 ML IV ONE (09:30)
[2017-04-04 09:32] LABS: ALT 47 U/L (9-52); AST 32 U/L (14-36); Alkaline Phosphatase 105 U/L (38-126); Anion Gap 12 mmol/L; Blood Urea Nitrogen 16 mg/dL (7-17); Calcium 9.6 mg/dL (8.4-10.2); Carbon Dioxide 26 mmol/L (22-30); Chloride 102 mmol/L (98-107); Glucose 234 mg/dL (74-99); Non-African American GFR(MDRD) >60 (>60 ml/min/1.73 sqM); Potassium 4.9 mmol/L (3.5-5.1); Sodium 140 mmol/L (137-145); Total Bilirubin 0.4 mg/dL (0.2-1.3); Total Protein 6.7 g/dL (6.3-8.2)
[2017-04-04] MEDS ORDERED: ALBUTEROL NEBULIZED 2.5 MG/3 ML INHALATION PRN (09:35)
[2017-04-04] MEDS ORDERED: ALTEPLASE 2 MG VIAL (CATHFLO) IV STA (09:46)
[2017-04-04 11:19] LABS: Glucose,Whole Blood 153 mg/dL (75-99)
[2017-04-04] MEDS: APIDRA 100 UNIT/ML SQ SCH ×3 (13:01→21:44)
[2017-04-04] MEDS: MAG HYDROX/AL HYDROX/SIMETH 30 ML, LIDOCAINE VISCOUS 30 ML, diphenhydrAMINE ELIXIR 75 M... PO SCH ×12 (13:02→21:52)
[2017-04-04] MEDS: ONDANSETRON 16 MG in SODIUM CHLORIDE 0.9% 50 ML IVPB SCH (13:18)
[2017-04-04] MEDS: DEXAMETHASONE SOD PHOSPHATE 10 MG/ML 1 ML VIAL IV SCH (13:18)
[2017-04-04] MEDS: FAMOTIDINE 20 MG/2 ML VIAL IV SCH (13:18)
[2017-04-04] MEDS: SODIUM CHLORIDE 0.9% 1,000 ML IV SCH (13:21)
[2017-04-04] MEDS: MESNA IV SCH ×4 (14:40→23:29)
[2017-04-04] MEDS: SODIUM CHLORIDE 0.9% IV SCH ×6 (14:40→23:29)
[2017-04-04] MEDS: DOXORUBICIN HCL IV SCH (15:07)
[2017-04-04] MEDS: IFOSFAMIDE IV SCH (15:08)
[2017-04-04] MEDS: HYDROcodone/APAP 5-325MG 1 EACH TAB PO PRN (15:27)
[2017-04-04] MEDS: SALT AND SODA MOUTHWASH 1,000 ML PO SCH ×3 (15:28→21:49)
[2017-04-04] MEDS: ALPRAZolam 0.25 MG TAB PO PRN (16:43)
[2017-04-04 17:29] LABS: Glucose,Whole Blood 161 mg/dL (75-99)
--- NOTE | 2017-04-04 18:04 | P.HPIM ---
History of Present Illness H&P Date: 04/04/17 Chief Complaint: Admission for CIVI chemotherapy, AIM protocol, liposarcoma Mrs. Mcrae is admitted for 3rd cycle of AIM protocol. 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 She presented with progressive difficulty with urination and defecation over the previous 4-6 weeks, c/o fulness/heaviness in the lower abd. CT AP showed a 14cm x 9 cm pelvic mass in the midline extending to the pelvic floor, no adenopathy, colonoscopy showed extrinsic compression. CT chest for staging on 01/10/17 showed borderline right bronchial adenopathy and lower lobes atelectasis with small effusions. Pt was referred to [facility] for opinion, recommendation was for adjuvant chemotherapy with Adriamycin and Ifosfamide was recommended. 1 st cycle of AIM chemo was given on 02/20/17 with treatment cycle lasting 21 days. She has tolerated her 1st 2 cycles rather well with manageable side effects, moderate to severe fatigue right after treatment. This AM pt denies fevers, chills, sweats, oral irritation, nausea, appetite is fair, no SOB, wheezing, abd pain or bloating, dysuria, hematuria, she uses lomotil PRN diarrhea, she had normal BM yesterday, mild MS aches, denies activity intolerance, leg swelling or any other physical c/o on admit. Review of Systems ROS is negative and as documented in HPI Past Medical History Past Medical History: Asthma, Cancer, Diabetes Mellitus, Fibromyalgia, GERD/ Reflux, Hyperlipidemia, Hypertension, Osteoarthritis (OA), Renal Disease Additional Past Medical History / Comment(s): Liposarcoma 12/31/16 with pelvic mass removal. Port placed. IDDM type II, L elbow fracture-surgery/bone removal , arthritis bilateral knees/shoulders/L elbow, DDD cervical spine and upper back , bilateral tinnitis, neuropathy chin and arms at times. History of Any Multi-Drug Resistant Organisms: None Reported Past Surgical History: Adenoidectomy, Appendectomy, Section, Hysterectomy, Orthopedic Surgery, Tonsillectomy Additional Past Surgical History / Comment(s): Exploratory lapa with pelvic mass removal, port placement, kidney stent/removed, D&C, right lateral salpingo- oophorectomy, colonoscopy, umbilical hernia repair, L knee arthroscopy, L elbow implant then bone removal. Past Anesthesia/Blood Transfusion Reactions: Postoperative Nausea & Vomiting ( PONV) Past Psychological History: Anxiety Additional Psychological History / Comment(s): Pt resides with her spouse and currently 1 child at home. She is independent. Smoking Status: Never smoker Past Alcohol Use History: None Reported Past Drug Use History: None Reported - Past Family History Mother Family Medical History: Cancer Additional Family Medical History / Comment(s): eye, heart disease Father Additional Family Medical History / Comment(s): ALS, . Sister(s) Additional Family Medical History / Comment(s): ALS - Medications and Allergies Home Medications Medication Instructions Recorded Confirmed Type ALPRAZolam [Xanax] 0.25 mg PO Q6H PRN 12/31/16 04/04/17 History Albuterol Sulfate [Proair Hfa] 2 puff INHALATION RT-Q6H PRN 12/31/16 04/04/17 History Atorvastatin [Lipitor] 20 mg PO HS 12/31/16 04/04/17 History Enalapril [Vasotec] 2.5 mg PO HS 12/31/16 04/04/17 History Ergocalciferol [Vitamin D2 50,000 unit PO TU 12/31/16 04/04/17 History (DRISDOL)] Famotidine [Pepcid] 20 mg PO HS PRN 12/31/16 04/04/17 History Fenofibrate [Lofibra] 160 mg PO HS 12/31/16 04/04/17 History Insulin Glargine,Hum.rec.anlog 20 units SQ HS 12/31/16 04/04/17 History [Toujeo Solostar] Insulin Glargine,Hum.rec.anlog 80 units SQ QAM 12/31/16 04/04/17 History [Toujeo Solostar] Insulin Glulisine [Apidra] 25 unit SQ AC-TID 12/31/16 04/04/17 History Loratadine [Claritin] 10 mg PO QAM 12/31/16 04/04/17 History Metoprolol Tartrate [Lopressor] 25 mg PO BID 12/31/16 04/04/17 History Montelukast [Singulair] 10 mg PO HS 12/31/16 04/04/17 History metFORMIN HCL ER [Glucophage Xr] 500 mg PO BID 12/31/16 04/04/17 History Ondansetron Odt [Zofran ODT] 4 mg PO Q8HR PRN 02/07/17 04/04/17 History HYDROcodone/APAP 5-325MG [[place] 1 tab PO Q4HR PRN #60 tab 02/24/17 04/04/17 Rx 5-325] Loperamide [Imodium] 2 mg PO DAILY PRN 03/13/17 04/04/17 History Gabapentin 600 mg PO HS 04/04/17 04/04/17 History Insulin Glulisine [Apidra Solostar] 0 units SQ HS 04/04/17 04/04/17 History Allergies Allergy/AdvReac Type Severity Reaction Status Date / Time Penicillins Allergy Dyspnea/Rolando Verified 04/04/17 09:18 h Sulfa (Sulfonamide Allergy Unknown Verified 04/04/17 09:18 Antibiotics) Childhood artificial sweetner Allergy Severe Rash/Hives Uncoded 02/10/17 08:18 Physical Exam Vitals: Vital Signs Temp Pulse Resp BP Pulse Ox 04/04/17 16:00 97.5 F L 84 18 108/54 98 04/04/17 12:00 97.9 F 83 18 116/83 98 Intake and Output 04/04/17 04/04/17 04/04/17 06:59 14:59 22:59 Other: Voiding Method Toilet Toilet # Voids 2 Weight 90 kg Patient Weight 04/05/17 06:59 Weight 90 kg - Constitutional General appearance: cooperative, no acute distress, obese - EENT Eyes: anicteric sclerae, EOMI, PERRLA, normal appearance ENT: hearing grossly normal, normal oropharynx - Neck Neck: no lymphadenopathy - Respiratory Respiratory: bilateral: CTA - Cardiovascular Rhythm: regular Heart sounds: normal: S1, S2 Abnormal Heart Sounds: no systolic murmur, no diastolic murmur, no rub, no S3 Gallop, no S4 Gallop, no click, no other leg Peripheral Edema: bilateral: None - Gastrointestinal General gastrointestinal: no absent bowel sounds, no decreased bowel sounds, no distended, no hepatomegaly, no hyperactive bowel sounds, normal bowel sounds, no organomegaly, no rigid, no scaphoid, soft, no splenomegaly, no tenderness, no umbilical hernia, no ventral hernia - Integumentary Integumentary: normal, normal turgor - Neurologic Neurologic: CNII-XII intact - Musculoskeletal Musculoskeletal: strength equal bilaterally - Psychiatric Psychiatric: A&O x's 3, appropriate affect, intact judgment & insight Results CBC & Chem 7: 04/04/17 09:10 04/04/17 09:05 Labs: Abnormal Lab Results - Last 24 Hours (Table) 04/04/17 04/04/17 04/04/17 Range/Units 09:05 09:10 11:03 WBC 11.5 H (3.8-10.6) k/uL RDW 19.0 H (11.5-15.5) % Neutrophils # 9.8 H (1.3-7.7) k/uL Lymphocytes # 0.6 L (1.0-4.8) k/uL Glucose 234 H (74-99) mg/dL POC Glucose (mg/dL) 153 H (75-99) mg/dL 04/04/17 Range/Units 17:16 WBC (3.8-10.6) k/uL RDW (11.5-15.5) % Neutrophils # (1.3-7.7) k/uL Lymphocytes # (1.0-4.8) k/uL Glucose (74-99) mg/dL POC Glucose (mg/dL) 161 H (75-99) mg/dL Thrombosis Risk Factor Assmnt - DVT/VTE Prophylaxis DVT/VTE Prophylaxis: Pharmacologic Prophylaxis ordered - Choose All That Apply Any of the Below Risk Factors Present?: Yes Each Factor Represents 1 point: Age 41-60 years Other Risk Factors: No Other congenital or acquired thrombophilia - If yes, enter type in comment: No Thrombosis Risk Factor Assessment Total Risk Factor Score: 1 Thrombosis Risk Factor Assessment Level: Low Risk Assessment and Plan (1) Liposarcoma Narrative/Plan: Admit for continuous IV infusion chemotherapy cycle #3. Orders reviewed, support meds ordered, labs daily. Pt will be due for treatment follow up imaging after this cycle, will be sched as an outpatient. Status: Acute (2) Insulin dependent diabetes mellitus Status: Chronic (3) Hypertension Status: Chronic (4) Hyperlipidemia Status: Chronic (5) Asthma Status: Chronic Plan: Home meds reordered for co-morbid, chronic medical conditions. PCP has been consulted for medical management while inpatient.
[2017-04-04 21:44] LABS: Glucose,Whole Blood 295 mg/dL (75-99)
[2017-04-04] MEDS: TOUJEO 300 UNITS/ML SQ SCH (21:44)
[2017-04-04] MEDS: FENOFIBRATE 160 MG TAB PO SCH (21:53)
[2017-04-04] MEDS: LISINOPRIL 5 MG TAB PO SCH (21:53)
[2017-04-04] MEDS: GABAPENTIN 300 MG CAP PO SCH (21:53)
[2017-04-04] MEDS: ATORVASTATIN 20 MG TAB PO SCH (21:53)
[2017-04-04] MEDS: diphenhydrAMINE 50 MG CAP PO SCH (21:53)
[2017-04-04] MEDS: metFORMIN 500 MG TAB PO SCH (21:53)
[2017-04-04] MEDS: MONTELUKAST 10 MG TAB PO SCH (21:54)
[2017-04-04] MEDS: METOPROLOL TARTRATE 25 MG TAB PO SCH (21:54)
[2017-04-05] MEDS: ALPRAZolam 0.25 MG TAB PO PRN ×3 (03:56→21:23)
[2017-04-05] MEDS: SODIUM CHLORIDE 0.9% 1,000 ML IV SCH ×3 (03:57→17:23)
[2017-04-05 07:05] LABS: Glucose,Whole Blood 249 mg/dL (75-99)
[2017-04-05] MEDS: TOUJEO 300 UNITS/ML SQ SCH ×2 (07:48→21:49)
[2017-04-05] MEDS: APIDRA 100 UNIT/ML SQ SCH ×4 (07:48→21:53)
[2017-04-05] MEDS: MAG HYDROX/AL HYDROX/SIMETH 30 ML, LIDOCAINE VISCOUS 30 ML, diphenhydrAMINE ELIXIR 75 M... PO SCH ×12 (07:51→21:51)
[2017-04-05] MEDS: ENOXAPARIN 40 MG/0.4 ML SYRINGE SQ SCH (07:52)
[2017-04-05] MEDS: SALT AND SODA MOUTHWASH 1,000 ML PO SCH ×4 (07:52→21:53)
[2017-04-05] MEDS: LORATADINE 10 MG TAB PO SCH (07:53)
[2017-04-05] MEDS: metFORMIN 500 MG TAB PO SCH ×2 (07:54→21:50)
[2017-04-05] MEDS: METOPROLOL TARTRATE 25 MG TAB PO SCH ×2 (07:55→21:49)
[2017-04-05 08:19] LABS: Anisocytosis Slight; Basophils % (A) 0 %; CH 27.8; CHCM 32.3; Eosinophils # (A) 0.1 k/uL (0-0.7); Eosinophils % (A) 0 %; HCT 29.5 % (34.0-46.0); HDW 3.31; Hypochromasia Slight; Luc # (Auto) 0.09; Luc % (Auto) 1; Lymphocytes # (A) 0.7 k/uL (1.0-4.8); Lymphocytes % (A) 6 %; MCH 28.3 pg (25.0-35.0); MCHC 32.8 g/dL (31.0-37.0); MCV 86.3 fL (80.0-100.0); Mean Platelet Volume 9.3; Monocytes # (A) 0.7 k/uL (0-1.0); Monocytes % (A) 6 %; Neutrophils # (A) 10.3 k/uL (1.3-7.7); Neutrophils % (A) 87 %; RBC 3.42 m/uL (3.80-5.40); RDW 18.1 % (11.5-15.5); WBC 11.9 k/uL (3.8-10.6); WBC (Perox) 12.84
[2017-04-05] MEDS: ONDANSETRON 4 MG/2 ML VIAL IVP PRN (08:21)
[2017-04-05 08:22] LABS: HGB 9.7 gm/dL (11.4-16.0)
--- NOTE | 2017-04-05 09:33 | P.CONS ---
History of Present Illness - Reason for Consult Consult date: 04/05/17 medical management - Chief Complaint Lipocarcoma/inpatient chemo - History of Present Illness 56-year-old female who was admitted to the hospital on 04/04/[address] Ling/Kylah was consulted for medical management. 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 The patient states this is her third cycle and she anticipates there will be 6 cycles total. The patient has a history of exploratory lap in December 2016 with excision of a pelvic mass, grade III that extended to the margins. The patient went to the sarcoma clinic at [facility] and her case was discussed with the tumor board. Recommendations were made and the patient has been following up with Dr. Mukherjee for her chemotherapy treatment. Currently the patient states she is feeling okay. She denies shortness of breath or chest pain. Patient states her appetite is fair, but the hospital food here taste different to her since starting chemotherapy and the patient has brought some food from home. She states she is also taking Zofran before she is eating in an attempt to avoid nausea or vomiting. She denies any abdominal pain, constipation, or diarrhea. She states she had a "panic attack" yesterday because she was placed in a room that was "backwards" from what she was use to and she did not have a room with a window view. She states the nursing staff was very accommodating and moved her to a different room and the patient states she is feeling much better since then. Review of Systems GENERAL: Patient denies fever, chills, or weight gain. Positive for weight loss and fatigue. RESPIRATORY: Denies dyspnea, cough, sputum production, or hemoptysis. CARDIOVASCULAR: Denies chest pain, pressure, palpitations, claudication, or arrhythmias. GI: Positive for nausea at times when eating. Denies abdominal pain, diarrhea, incontinence, heartburn, constipation, or blood in the stool. : Denies urinary frequency, burning, dysuria, or cloudy urine. Denies blood in the urine. MUSCULOSKELETAL: Positive for generalized fatigue and weakness. Denies pain or tenderness. Denies cramps, swelling, or decreased range of motion. Past Medical History Past Medical History: Asthma, Cancer, Diabetes Mellitus, Fibromyalgia, GERD/ Reflux, Hyperlipidemia, Hypertension, Osteoarthritis (OA), Renal Disease Additional Past Medical History / Comment(s): Liposarcoma 12/31/16 with pelvic mass removal. Port placed. IDDM type II, L elbow fracture-surgery/bone removal , arthritis bilateral knees/shoulders/L elbow, DDD cervical spine and upper back , bilateral tinnitis, neuropathy chin and arms at times. History of Any Multi-Drug Resistant Organisms: None Reported Past Surgical History: Adenoidectomy, Appendectomy, Section, Hysterectomy, Orthopedic Surgery, Tonsillectomy Additional Past Surgical History / Comment(s): Exploratory lapa with pelvic mass removal, port placement, kidney stent/removed, D&C, right lateral salpingo- oophorectomy, colonoscopy, umbilical hernia repair, L knee arthroscopy, L elbow implant then bone removal. Past Anesthesia/Blood Transfusion Reactions: Postoperative Nausea & Vomiting ( PONV) Past Psychological History: Anxiety Additional Psychological History / Comment(s): Pt resides with her spouse and currently 1 child at home. She is independent. Smoking Status: Never smoker Past Alcohol Use History: None Reported Past Drug Use History: None Reported - Past Family History Mother Family Medical History: Cancer Additional Family Medical History / Comment(s): eye, heart disease Father Additional Family Medical History / Comment(s): ALS, . Sister(s) Additional Family Medical History / Comment(s): ALS - Medications and Allergies Home Medications Medication Instructions Recorded Confirmed Type ALPRAZolam [Xanax] 0.25 mg PO Q6H PRN 12/31/16 04/04/17 History Albuterol Sulfate [Proair Hfa] 2 puff INHALATION RT-Q6H PRN 12/31/16 04/04/17 History Atorvastatin [Lipitor] 20 mg PO HS 12/31/16 04/04/17 History Enalapril [Vasotec] 2.5 mg PO HS 12/31/16 04/04/17 History Ergocalciferol [Vitamin D2 50,000 unit PO TU 12/31/16 04/04/17 History (DRISDOL)] Famotidine [Pepcid] 20 mg PO HS PRN 12/31/16 04/04/17 History Fenofibrate [Lofibra] 160 mg PO HS 12/31/16 04/04/17 History Insulin Glargine,Hum.rec.anlog 20 units SQ HS 12/31/16 04/04/17 History [Toujeo Misostar] Insulin Glargine,Hum.rec.anlog 80 units SQ QAM 12/31/16 04/04/17 History [Toujeo Solostar] Insulin Glulisine [Apidra] 25 unit SQ AC-TID 12/31/16 04/04/17 History Loratadine [Claritin] 10 mg PO QAM 12/31/16 04/04/17 History Metoprolol Tartrate [Lopressor] 25 mg PO BID 12/31/16 04/04/17 History Montelukast [Singulair] 10 mg PO HS 12/31/16 04/04/17 History metFORMIN HCL ER [Glucophage Xr] 500 mg PO BID 12/31/16 04/04/17 History Ondansetron Odt [Zofran ODT] 4 mg PO Q8HR PRN 02/07/17 04/04/17 History HYDROcodone/APAP 5-325MG [[place] 1 tab PO Q4HR PRN #60 tab 02/24/17 04/04/17 Rx 5-325] Loperamide [Imodium] 2 mg PO DAILY PRN 03/13/17 04/04/17 History Gabapentin 600 mg PO HS 04/04/17 04/04/17 History Insulin Glulisine [Apidra Solostar] 0 units SQ HS 04/04/17 04/04/17 History Allergies Allergy/AdvReac Type Severity Reaction Status Date / Time Penicillins Allergy Dyspnea/Rolando Verified 04/04/17 09:18 h Sulfa (Sulfonamide Allergy Unknown Verified 04/04/17 09:18 Antibiotics) Childhood artificial sweetner Allergy Severe Rash/Hives Uncoded 02/10/17 08:18 Physical Exam Vitals: Vital Signs Temp Pulse Resp BP Pulse Ox 04/05/17 07:46 97.8 F 89 115/64 95 04/05/17 04:00 97.9 F 81 18 112/68 97 04/05/17 00:00 18 04/04/17 16:00 97.5 F L 84 18 108/54 98 04/04/17 12:00 97.9 F 83 18 116/83 98 Intake and Output 04/04/17 04/05/17 04/05/17 22:59 06:59 14:59 Intake Total 1070 1356 Balance 1070 1356 Intake: Intake, IV Titration 1236 Amount DOXOrubicin HCL 50 mg In 336 Sodium Chloride 0.9% 1, 000 ml @ 42.708 mls/hr IV Q24H MATTHEW Rx#:[id number] [place] 1,000 mg In Sodium 50 Chloride 0.9% 50 ml @ 240 mls/hr IV Q24H MATTHEW Rx#: [id number] [place] 1,000 mg In Sodium 50 Chloride 0.9% 50 ml @ 240 mls/hr IV Q24H MATTHEW Rx#: [id number] Sodium Chloride 0.9% 1, 800 000 ml @ 100 mls/hr IV . Q10H MATTHEW Rx#:[id number] Oral 1070 120 Other: Voiding Method Toilet Toilet # Voids 2 1 Weight 90.2 kg GENERAL: Alert and oriented. Appears in no acute distress. Pleasant and cooperative. Mediport noted to right upper chest. RESPIRATORY: Lungs clear bilaterally. No use of accessory muscles. Patient maintaining oxygen saturation greater than 92% on room air. CARDIOVASCULAR: S1 and S2 noted. No murmurs auscultated. No JVD noted. EXTREMITIES: No edema noted. Palpable pedal pulses +2. ABDOMEN: No distention noted. Abdomen soft and round. Normal active bowel sounds auscultated 4 quadrants. No pain or tenderness noted upon palpation. Results CBC & Chem 7: 04/05/17 07:15 04/04/17 09:05 Labs: Abnormal Lab Results - Last 24 Hours (Table) 04/04/17 04/04/17 04/04/17 Range/Units 09:05 09:10 11:03 WBC 11.5 H (3.8-10.6) k/uL RBC (3.80-5.40) m/uL Hgb (11.4-16.0) gm/dL Hct (34.0-46.0) % RDW 19.0 H (11.5-15.5) % Neutrophils # 9.8 H (1.3-7.7) k/uL Lymphocytes # 0.6 L (1.0-4.8) k/uL Glucose 234 H (74-99) mg/dL POC Glucose (mg/dL) 153 H (75-99) mg/dL 04/04/17 04/04/17 04/05/17 Range/Units 17:16 21:43 07:04 WBC (3.8-10.6) k/uL RBC (3.80-5.40) m/uL Hgb (11.4-16.0) gm/dL Hct (34.0-46.0) % RDW (11.5-15.5) % Neutrophils # (1.3-7.7) k/uL Lymphocytes # (1.0-4.8) k/uL Glucose (74-99) mg/dL POC Glucose (mg/dL) 161 H 295 H 249 H (75-99) mg/dL 04/05/17 Range/Units 07:15 WBC 11.9 H (3.8-10.6) k/uL RBC 3.42 L (3.80-5.40) m/uL Hgb 9.7 L D (11.4-16.0) gm/dL Hct 29.5 L (34.0-46.0) % RDW 18.1 H (11.5-15.5) % Neutrophils # (1.3-7.7) k/uL Lymphocytes # (1.0-4.8) k/uL Glucose (74-99) mg/dL POC Glucose (mg/dL) (75-99) mg/dL Assessment and Plan Plan: ASSESSMENT: Liposarcoma, admitted for 3rd round of chemotherapy Anemia, likely related to chemotherapy infusion History of diabetes mellitus, type II History of fibromyalgia History of essential hypertension History of osteoarthritis PLAN: -Continue with chemotherapy regimen per Dr. Mukherjee -Resume home meds -GI prophylaxis: Patient receiving Pepcid 20 mg IV daily -DVT prophylaxis: Patient receiving Lovenox 40 mg daily -Continue Zofran for nausea -Monitor vital signs and address as appropriate -Monitor labs -Monitor capillary blood glucose. Patient brought her own insulin from home. The above impression and plan of care have been discussed and directed by signing physician. Bridget Mckeon, nurse practitioner, acting as scribe for signing physician.
[2017-04-05 10:53] LABS: Manual Review Performed; Toxic Granulation Present
[2017-04-05] MEDS: HYDROcodone/APAP 5-325MG 1 EACH TAB PO PRN (11:10)
[2017-04-05 11:18] LABS: Glucose,Whole Blood 213 mg/dL (75-99)
[2017-04-05] MEDS ORDERED: INSULIN LISPRO (humaLOG) 300 UNIT/3 ML VIAL SQ SCH (12:30)
[2017-04-05 17:19] LABS: Glucose,Whole Blood 112 mg/dL (75-99)
[2017-04-05] MEDS: FAMOTIDINE 20 MG/2 ML VIAL IV SCH (17:24)
[2017-04-05] MEDS: DEXAMETHASONE SOD PHOSPHATE 10 MG/ML 1 ML VIAL IV SCH (17:24)
[2017-04-05] MEDS: ONDANSETRON 16 MG in SODIUM CHLORIDE 0.9% 50 ML IVPB SCH (17:32)
--- NOTE | 2017-04-05 19:19 | P.PN ---
Subjective Principal diagnosis: CIVI chemotherapy for liposarcoma Pt seen today in follow u, mild nausea this AM, food smells bad, no vomiting, fevers, SOB, cough, abd pain, dysuria, diarrhea or swelling Objective - Vital Signs Vital signs: Vital Signs Temp 97.6 F 04/05/17 16:00 Pulse 84 04/05/17 16:00 Resp 18 04/05/17 04:00 BP 107/63 04/05/17 16:00 Pulse Ox 99 04/05/17 16:00 Intake & Output 04/05/17 04/05/17 04/06/17 06:59 18:59 06:59 Intake Total 2426 Balance 2426 Weight 90.2 kg 90.2 kg Intake: Intake, IV Titration 1236 Amount DOXOrubicin HCL 50 mg In 336 Sodium Chloride 0.9% 1, 000 ml @ 42.708 mls/hr IV Q24H MATTHEW Rx#:[id number] [place] 1,000 mg In Sodium 50 Chloride 0.9% 50 ml @ 240 mls/hr IV Q24H MATTHEW Rx#: [id number] [place] 1,000 mg In Sodium 50 Chloride 0.9% 50 ml @ 240 mls/hr IV Q24H MATTHEW Rx#: [id number] Sodium Chloride 0.9% 1, 800 000 ml @ 100 mls/hr IV . Q10H MATTHEW Rx#:[id number] Oral 1190 Other: Voiding Method Toilet Toilet # Voids 1 2 - Constitutional General appearance: Present: cooperative, no acute distress, obese - EENT Eyes: Present: normal appearance ENT: Present: normal oropharynx - Respiratory Respiratory: bilateral: CTA - Cardiovascular Heart sounds: normal: S1, S2 - Peripheral edema leg Peripheral Edema: bilateral: None - Gastrointestinal General gastrointestinal: Present: normal bowel sounds, soft - Integumentary Integumentary: Present: normal, normal turgor - Neurologic Neurologic: Present: CNII-XII intact - Psychiatric Psychiatric: Present: A&O x's 3, appropriate affect, intact judgment & insight - Labs CBC & Chem 7: 04/05/17 07:15 04/04/17 09:05 Labs: Abnormal Lab Results - Last 24 Hours (Table) 04/04/17 04/05/17 04/05/17 Range/Units 21:43 07:04 07:15 WBC 11.9 H (3.8-10.6) k/uL RBC 3.42 L (3.80-5.40) m/uL Hgb 9.7 L D (11.4-16.0) gm/dL Hct 29.5 L (34.0-46.0) % RDW 18.1 H (11.5-15.5) % Neutrophils # 10.3 H (1.3-7.7) k/uL Lymphocytes # 0.7 L (1.0-4.8) k/uL POC Glucose (mg/dL) 295 H 249 H (75-99) mg/dL 04/05/17 04/05/17 Range/Units 11:16 17:18 WBC (3.8-10.6) k/uL RBC (3.80-5.40) m/uL Hgb (11.4-16.0) gm/dL Hct (34.0-46.0) % RDW (11.5-15.5) % Neutrophils # (1.3-7.7) k/uL Lymphocytes # (1.0-4.8) k/uL POC Glucose (mg/dL) 213 H 112 H (75-99) mg/dL Assessment and Plan (1) Liposarcoma Narrative/Plan: Cont IV infusion chemotherapy cycle #3. Orders reviewed, support meds ordered, labs daily. Pt due for treatment follow up imaging after this cycle outpatient. Status: Acute (2) Insulin dependent diabetes mellitus Status: Chronic (3) Hypertension Status: Chronic (4) Hyperlipidemia Status: Chronic (5) Asthma Status: Chronic Plan: PCP for medical management
[2017-04-05] MEDS: MESNA IV SCH (19:56)
[2017-04-05] MEDS: SODIUM CHLORIDE 0.9% IV SCH ×3 (19:56→20:39)
[2017-04-05 20:16] LABS: Glucose,Whole Blood 205 mg/dL (75-99)
[2017-04-05] MEDS: IFOSFAMIDE IV SCH (20:39)
[2017-04-05] MEDS: DOXORUBICIN HCL IV SCH (20:39)
[2017-04-05] MEDS: ATORVASTATIN 20 MG TAB PO SCH (21:49)
[2017-04-05] MEDS: MONTELUKAST 10 MG TAB PO SCH (21:49)
[2017-04-05] MEDS: GABAPENTIN 300 MG CAP PO SCH (21:50)
[2017-04-05] MEDS: LISINOPRIL 5 MG TAB PO SCH (21:50)
[2017-04-05] MEDS: FENOFIBRATE 160 MG TAB PO SCH (21:50)
[2017-04-05] MEDS ORDERED: LIDOCAINE 2% GEL 30 ML TUBE TOPICAL ONE (23:06)
[2017-04-06] MEDS: diphenhydrAMINE 50 MG CAP PO SCH ×2 (02:08→20:59)
[2017-04-06] MEDS: HYDROcodone/APAP 5-325MG 1 EACH TAB PO PRN ×3 (02:09→19:14)
[2017-04-06] MEDS: WITCH HAZEL 1 EACH MED..PAD TOPICAL SCH ×5 (02:10→21:02)
[2017-04-06] MEDS: SODIUM CHLORIDE 0.9% 1,000 ML IV SCH ×3 (03:07→23:04)
[2017-04-06 07:16] LABS: Glucose,Whole Blood 124 mg/dL (75-99)
[2017-04-06] MEDS: IFOSFAMIDE IV SCH ×2 (07:30→14:43)
[2017-04-06] MEDS: DOXORUBICIN HCL IV SCH ×2 (07:30→14:40)
[2017-04-06] MEDS: SODIUM CHLORIDE 0.9% IV SCH ×9 (07:30→23:04)
[2017-04-06] MEDS: MESNA IV SCH ×5 (07:31→23:04)
[2017-04-06] MEDS: ALPRAZolam 0.25 MG TAB PO PRN (08:31)
[2017-04-06] MEDS: TOUJEO 300 UNITS/ML SQ SCH ×2 (08:42→20:57)
[2017-04-06] MEDS: MAG HYDROX/AL HYDROX/SIMETH 30 ML, LIDOCAINE VISCOUS 30 ML, diphenhydrAMINE ELIXIR 75 M... PO SCH ×12 (08:43→20:59)
[2017-04-06] MEDS: APIDRA 100 UNIT/ML SQ SCH ×4 (08:44→20:58)
[2017-04-06] MEDS: SALT AND SODA MOUTHWASH 1,000 ML PO SCH ×4 (08:44→21:00)
[2017-04-06] MEDS: LORATADINE 10 MG TAB PO SCH (08:45)
[2017-04-06] MEDS: metFORMIN 500 MG TAB PO SCH ×2 (08:45→20:59)
[2017-04-06] MEDS: ENOXAPARIN 40 MG/0.4 ML SYRINGE SQ SCH (08:45)
[2017-04-06] MEDS: METOPROLOL TARTRATE 25 MG TAB PO SCH ×2 (08:46→20:59)
[2017-04-06] MEDS ORDERED: ALTEPLASE 2 MG VIAL (CATHFLO) IV STA (08:54)
[2017-04-06 11:28] LABS: Glucose,Whole Blood 152 mg/dL (75-99)
[2017-04-06 11:40] LABS: Anisocytosis Slight; Basophils # (A) 0.1 k/uL (0-0.2); Basophils % (A) 1 %; CH 27.9; CHCM 32.9; Eosinophils % (A) 0 %; HCT 31.5 % (34.0-46.0); HDW 3.26; HGB 10.3 gm/dL (11.4-16.0); Luc # (Auto) 0.14; Luc % (Auto) 1; Lymphocytes # (A) 0.8 k/uL (1.0-4.8); Lymphocytes % (A) 8 %; MCH 27.8 pg (25.0-35.0); MCHC 32.6 g/dL (31.0-37.0); MCV 85.2 fL (80.0-100.0); Mean Platelet Volume 7.1; Monocytes # (A) 0.8 k/uL (0-1.0); Monocytes % (A) 8 %; Neutrophils # (A) 8.3 k/uL (1.3-7.7); Neutrophils % (A) 83 %; RDW 18.4 % (11.5-15.5); WBC 10.1 k/uL (3.8-10.6); WBC (Perox) 10.06
[2017-04-06 12:21] LABS: ALT 35 U/L (9-52); AST 21 U/L (14-36); Alkaline Phosphatase 81 U/L (38-126); Anion Gap 7 mmol/L; Blood Urea Nitrogen 16 mg/dL (7-17); Calcium 9.2 mg/dL (8.4-10.2); Carbon Dioxide 27 mmol/L (22-30); Chloride 105 mmol/L (98-107); Glucose 151 mg/dL (74-99); Non-African American GFR(MDRD) >60 (>60 ml/min/1.73 sqM); Potassium 4.1 mmol/L (3.5-5.1); Sodium 139 mmol/L (137-145); Total Bilirubin 0.2 mg/dL (0.2-1.3); Total Protein 5.7 g/dL (6.3-8.2)
[2017-04-06] MEDS: DEXAMETHASONE SOD PHOSPHATE 10 MG/ML 1 ML VIAL IV SCH (12:36)
[2017-04-06] MEDS: FAMOTIDINE 20 MG/2 ML VIAL IV SCH (12:36)
[2017-04-06 12:47] VITALS: BMI 30.7
[2017-04-06] MEDS: ONDANSETRON 16 MG in SODIUM CHLORIDE 0.9% 50 ML IVPB SCH (13:01)
--- NOTE | 2017-04-06 13:03 | P.PN ---
Subjective Principal diagnosis: 56-year-old female who was admitted to the hospital on 04/04/2017 for chemotherapy. Patient seen and examined on rounds with Dr. Ling. Patient upset today because she states her Mediport was not functioning properly and her chemotherapy infusion was delayed. She states she has not been eating much today. However, patient has 2 visitors in her room and brought her a milkshake which she is drinking currently. She denies chest pain or shortness of breath. She maintaining fever on her vital signs of an stable. Objective - Vital Signs Vital signs: Vital Signs Temp 97.7 F 04/06/17 07:25 Pulse 62 04/06/17 07:25 Resp 16 04/06/17 07:25 BP 118/66 04/06/17 07:25 Pulse Ox 100 04/06/17 07:25 Intake & Output 04/05/17 04/06/17 04/06/17 18:59 06:59 18:59 Intake Total 590 Balance 590 Weight 90.2 kg 91.5 kg 91.5 kg Intake: Oral 590 Other: Voiding Method Toilet Toilet Toilet # Voids 2 1 1 - Exam GENERAL: Alert and oriented. Appears in no acute distress. Pleasant and cooperative. Mediport noted to right upper chest. RESPIRATORY: Lungs clear bilaterally. No use of accessory muscles. Patient maintaining oxygen saturation greater than 92% on room air. CARDIOVASCULAR: S1 and S2 noted. No murmurs auscultated. No JVD noted. EXTREMITIES: No edema noted. Palpable pedal pulses +2. ABDOMEN: No distention noted. Abdomen soft and round. Normal active bowel sounds auscultated 4 quadrants. No pain or tenderness noted upon palpation - Labs CBC & Chem 7: 04/06/17 11:23 04/06/17 11:23 Labs: Abnormal Lab Results - Last 24 Hours (Table) 04/05/17 04/05/17 04/06/17 Range/Units 17:18 20:13 07:14 RBC (3.80-5.40) m/uL Hgb (11.4-16.0) gm/dL Hct (34.0-46.0) % RDW (11.5-15.5) % Neutrophils # (1.3-7.7) k/uL Lymphocytes # (1.0-4.8) k/uL Glucose (74-99) mg/dL POC Glucose (mg/dL) 112 H 205 H 124 H (75-99) mg/dL Total Protein (6.3-8.2) g/dL Albumin (3.5-5.0) g/dL 04/06/17 04/06/17 04/06/17 Range/Units 11:23 11:23 11:26 RBC 3.70 L (3.80-5.40) m/uL Hgb 10.3 L (11.4-16.0) gm/dL Hct 31.5 L (34.0-46.0) % RDW 18.4 H (11.5-15.5) % Neutrophils # 8.3 H (1.3-7.7) k/uL Lymphocytes # 0.8 L (1.0-4.8) k/uL Glucose 151 H (74-99) mg/dL POC Glucose (mg/dL) 152 H (75-99) mg/dL Total Protein 5.7 L (6.3-8.2) g/dL Albumin 3.3 L (3.5-5.0) g/dL Assessment and Plan Plan: ASSESSMENT: Liposarcoma, admitted for 3rd round of chemotherapy Anemia, likely related to chemotherapy infusion History of diabetes mellitus, type II History of fibromyalgia History of essential hypertension History of osteoarthritis PLAN: -Continue with chemotherapy regimen per Dr. Mukherjee -Resume home meds -GI prophylaxis: Patient receiving Pepcid 20 mg IV daily -DVT prophylaxis: Patient receiving Lovenox 40 mg daily -Continue Zofran for nausea -Monitor vital signs and address as appropriate -Monitor labs -Monitor capillary blood glucose. Patient brought her own insulin from home. The above impression and plan of care have been discussed and directed by signing physician. Bridget Mckeon, nurse practitioner, acting as scribe for signing physician.
[2017-04-06 16:50] LABS: Glucose,Whole Blood 236 mg/dL (75-99)
[2017-04-06] MEDS: ONDANSETRON 4 MG/2 ML VIAL IVP PRN (18:09)
[2017-04-06 20:57] LABS: Glucose,Whole Blood 164 mg/dL (75-99)
[2017-04-06] MEDS: LISINOPRIL 5 MG TAB PO SCH (20:59)
[2017-04-06] MEDS: FENOFIBRATE 160 MG TAB PO SCH (20:59)
[2017-04-06] MEDS: ATORVASTATIN 20 MG TAB PO SCH (20:59)
[2017-04-06] MEDS: MONTELUKAST 10 MG TAB PO SCH (20:59)
[2017-04-06] MEDS: GABAPENTIN 300 MG CAP PO SCH (20:59)
--- NOTE | 2017-04-06 23:26 | P.PN ---
Subjective The patient was unable to have her chemotherapy overnight, as her port accessed needle had become detached, and her port could not be re-accessed. She had a difficult time sleeping, and was therefore somewhat upset this morning. She denied any major issues with nausea or vomiting. She had somewhat loose stools last night, but states that she feels better today. No history of any mouth sores, or difficulty with breathing. Objective - Vital Signs Vital signs: Vital Signs Temp 98.1 F 04/06/17 15:00 Pulse 57 L 04/06/17 23:13 Resp 18 04/06/17 23:13 BP 130/66 04/06/17 23:13 Pulse Ox 100 04/06/17 23:13 Intake & Output 04/06/17 04/06/17 04/07/17 06:59 18:59 06:59 Intake Total 590 640 Balance 590 640 Weight 91.5 kg 91.5 kg Intake: IV 520 DOXOrubicin HCL 50 mg In 170 Sodium Chloride 0.9% 1, 000 ml @ 42.708 mls/hr IV Q24H MATTHEW Rx#:[id number] Mesna 1,000 mg In Sodium 100 Chloride 0.9% 50 ml @ 240 mls/hr IV Q24H MATTHEW Rx#: [id number] Sodium Chloride 0.9% 1, 250 000 ml @ 100 mls/hr IV . Q10H MATTHEW Rx#:[id number] Oral 590 120 Other: Voiding Method Toilet Toilet # Voids 1 2 - Constitutional General appearance: Present: no acute distress - EENT Eyes: Present: EOMI, PERRLA ENT: Present: hearing grossly normal, normal oropharynx - Respiratory Respiratory: bilateral: CTA - Cardiovascular Rhythm: regular Heart sounds: normal: S1, S2 - Gastrointestinal General gastrointestinal: Present: normal bowel sounds, soft - Integumentary Integumentary: Present: normal - Neurologic Neurologic: Present: CNII-XII intact - Musculoskeletal Musculoskeletal: Present: strength equal bilaterally - Psychiatric Psychiatric: Present: A&O x's 3, appropriate affect - Labs CBC & Chem 7: 04/06/17 11:23 04/06/17 11:23 Labs: Abnormal Lab Results - Last 24 Hours (Table) 04/06/17 04/06/17 04/06/17 Range/Units 07:14 11:23 11:23 RBC 3.70 L (3.80-5.40) m/uL Hgb 10.3 L (11.4-16.0) gm/dL Hct 31.5 L (34.0-46.0) % RDW 18.4 H (11.5-15.5) % Neutrophils # 8.3 H (1.3-7.7) k/uL Lymphocytes # 0.8 L (1.0-4.8) k/uL Glucose 151 H (74-99) mg/dL POC Glucose (mg/dL) 124 H (75-99) mg/dL Total Protein 5.7 L (6.3-8.2) g/dL Albumin 3.3 L (3.5-5.0) g/dL 04/06/17 04/06/17 04/06/17 Range/Units 11:26 16:48 20:56 RBC (3.80-5.40) m/uL Hgb (11.4-16.0) gm/dL Hct (34.0-46.0) % RDW (11.5-15.5) % Neutrophils # (1.3-7.7) k/uL Lymphocytes # (1.0-4.8) k/uL Glucose (74-99) mg/dL POC Glucose (mg/dL) 152 H 236 H 164 H (75-99) mg/dL Total Protein (6.3-8.2) g/dL Albumin (3.5-5.0) g/dL Assessment and Plan (1) Liposarcoma Narrative/Plan: The patient is admitted for high dose infusional chemotherapy for the same. Chemotherapy was on hold overnight, due to axis use. This morning the port has been reexcised. It will be checked for patency, with Cathflo instillation. Resuming normal function resumed, the patient was started back on chemotherapy. She is somewhat upset about the delay that this will cause in her discharge. However she was reassured, that this is highly unlikely to affect efficacy. Resuming that there are no further axis problems, patient will continue chemotherapy. Continue to monitor with clinical exams and labs. Status: Acute (2) Anemia aplastic aregenerative Narrative/Plan: Patient has a mild anemia, due to chemotherapy effect. Hemoglobin is quite satisfactory, and no intervention is required. Continue to monitor and transfuse if needed Status: Acute
[2017-04-07] MEDS: HYDROcodone/APAP 5-325MG 1 EACH TAB PO PRN ×4 (04:00→20:35)
[2017-04-07 06:31] LABS: Anisocytosis Slight; Basophils % (A) 1 %; CH 27.8; CHCM 32.9; Eosinophils % (A) 0 %; HCT 30.1 % (34.0-46.0); HDW 3.21; HGB 10.1 gm/dL (11.4-16.0); Luc # (Auto) 0.11; Luc % (Auto) 2; Lymphocytes # (A) 0.6 k/uL (1.0-4.8); Lymphocytes % (A) 10 %; MCH 28.5 pg (25.0-35.0); MCHC 33.6 g/dL (31.0-37.0); MCV 84.8 fL (80.0-100.0); Mean Platelet Volume 7.2; Monocytes # (A) 0.7 k/uL (0-1.0); Monocytes % (A) 10 %; Neutrophils # (A) 5.1 k/uL (1.3-7.7); Neutrophils % (A) 78 %; RBC 3.55 m/uL (3.80-5.40); WBC 6.5 k/uL (3.8-10.6)
[2017-04-07 07:13] LABS: Glucose,Whole Blood 68 mg/dL (75-99)
[2017-04-07 07:45] LABS: Glucose,Whole Blood 82 mg/dL (75-99)
[2017-04-07] MEDS: APIDRA 100 UNIT/ML SQ SCH ×4 (09:06→21:39)
[2017-04-07] MEDS: ALPRAZolam 0.25 MG TAB PO PRN ×2 (09:18→17:17)
[2017-04-07] MEDS: ONDANSETRON 4 MG/2 ML VIAL IVP PRN ×2 (09:18→22:02)
[2017-04-07] MEDS: SALT AND SODA MOUTHWASH 1,000 ML PO SCH ×4 (09:19→21:39)
[2017-04-07] MEDS: WITCH HAZEL 1 EACH MED..PAD TOPICAL SCH ×4 (09:19→21:40)
[2017-04-07] MEDS: ENOXAPARIN 40 MG/0.4 ML SYRINGE SQ SCH (09:19)
[2017-04-07] MEDS: MAG HYDROX/AL HYDROX/SIMETH 30 ML, LIDOCAINE VISCOUS 30 ML, diphenhydrAMINE ELIXIR 75 M... PO SCH ×12 (09:19→21:39)
[2017-04-07] MEDS: METOPROLOL TARTRATE 25 MG TAB PO SCH ×2 (09:20→23:12)
[2017-04-07] MEDS: metFORMIN 500 MG TAB PO SCH ×2 (09:20→21:38)
[2017-04-07] MEDS: LORATADINE 10 MG TAB PO SCH (09:20)
[2017-04-07] MEDS: TOUJEO 300 UNITS/ML SQ SCH ×2 (09:21→21:39)
--- NOTE | 2017-04-07 10:58 | US ---
Ultrasound support Ultrasound support supplied to the referring clinician. Scanned port site for infusiport needle, nurse unable to access under ultrasound guidance. 4 Images d ocument the procedure
[2017-04-07 11:51] LABS: Glucose,Whole Blood 104 mg/dL (75-99)
[2017-04-07 17:19] LABS: Glucose,Whole Blood 145 mg/dL (75-99)
[2017-04-07] MEDS: FAMOTIDINE 20 MG/2 ML VIAL IV SCH (17:19)
[2017-04-07] MEDS: DEXAMETHASONE SOD PHOSPHATE 10 MG/ML 1 ML VIAL IV SCH (17:19)
[2017-04-07] MEDS: SODIUM CHLORIDE 0.9% IV SCH ×4 (17:53→23:04)
[2017-04-07] MEDS: MESNA IV SCH ×2 (17:53→23:04)
[2017-04-07] MEDS: ONDANSETRON 16 MG in SODIUM CHLORIDE 0.9% 50 ML IVPB SCH (17:53)
[2017-04-07] MEDS: SODIUM CHLORIDE 0.9% 1,000 ML IV SCH ×2 (17:54→20:33)
[2017-04-07] MEDS: IFOSFAMIDE IV SCH (18:25)
[2017-04-07] MEDS: DOXORUBICIN HCL IV SCH (18:26)
[2017-04-07 20:34] LABS: Glucose,Whole Blood 138 mg/dL (75-99)
[2017-04-07] MEDS: GABAPENTIN 300 MG CAP PO SCH (21:38)
[2017-04-07] MEDS: MONTELUKAST 10 MG TAB PO SCH (21:38)
[2017-04-07] MEDS: diphenhydrAMINE 50 MG CAP PO SCH (21:38)
[2017-04-07] MEDS: FENOFIBRATE 160 MG TAB PO SCH (21:38)
[2017-04-07] MEDS: ATORVASTATIN 20 MG TAB PO SCH (21:38)
[2017-04-07] MEDS: LISINOPRIL 5 MG TAB PO SCH (23:12)
--- NOTE | 2017-04-07 23:55 | P.PN ---
Subjective The patient reports mild nausea but no vomiting. No fevers or chills. Appetite is diminished today. Objective - Vital Signs Vital signs: Vital Signs Temp 98.3 F 04/07/17 21:19 Pulse 72 04/07/17 21:19 Resp 16 04/07/17 21:19 BP 109/66 04/07/17 21:19 Pulse Ox 96 04/07/17 21:19 Intake & Output 04/07/17 04/07/17 04/08/17 06:59 18:59 06:59 Intake Total 1782 2128 Balance 1782 2128 Weight 91.5 kg Intake: IV 1662 800 DOXOrubicin HCL 50 mg In 170 Sodium Chloride 0.9% 1, 000 ml @ 42.708 mls/hr IV Q24H [facility] Rx#:[id number] DOXOrubicin HCL 50 mg In 342 Sodium Chloride 0.9% 1, 000 ml @ 42.708 mls/hr IV Q24H [facility]W Rx#:[id number] Mesna 1,000 mg In Sodium 100 Chloride 0.9% 50 ml @ 240 mls/hr IV Q24H [facility]W Rx#: [id number] Sodium Chloride 0.9% 1, 1050 800 000 ml @ 100 mls/hr IV . Q10H [facility]W Rx#:[id number] Intake, IV Titration 1328 Amount Ifosfamide 5,100 mg In 1328 Sodium Chloride 0.9% 500 ml @ 166.667 mls/hr IV Q24H [facility]THEW Rx#:[id number] Oral 120 Other: Voiding Method Toilet Toilet - Constitutional General appearance: Present: no acute distress - EENT Eyes: Present: EOMI, PERRLA ENT: Present: hearing grossly normal, normal oropharynx - Neck Thyroid: bilateral: normal size - Respiratory Respiratory: bilateral: CTA - Cardiovascular Rhythm: regular Heart sounds: normal: S1, S2 - Gastrointestinal General gastrointestinal: Present: normal bowel sounds, soft - Integumentary Integumentary: Present: normal - Neurologic Neurologic: Present: CNII-XII intact - Musculoskeletal Musculoskeletal: Present: generalized weakness, strength equal bilaterally - Labs CBC & Chem 7: 04/07/17 06:05 04/06/17 11:23 Labs: Abnormal Lab Results - Last 24 Hours (Table) 04/07/17 04/07/17 04/07/17 Range/Units 06:05 07:12 11:50 RBC 3.55 L (3.80-5.40) m/uL Hgb 10.1 L (11.4-16.0) gm/dL Hct 30.1 L (34.0-46.0) % RDW 18.0 H (11.5-15.5) % Lymphocytes # 0.6 L (1.0-4.8) k/uL POC Glucose (mg/dL) 68 L 104 H (75-99) mg/dL 04/07/17 04/07/17 Range/Units 17:16 20:32 RBC (3.80-5.40) m/uL Hgb (11.4-16.0) gm/dL Hct (34.0-46.0) % RDW (11.5-15.5) % Lymphocytes # (1.0-4.8) k/uL POC Glucose (mg/dL) 145 H 138 H (75-99) mg/dL Assessment and Plan (1) Liposarcoma Narrative/Plan: The patient continues on high dose infusional chemotherapy, with the mesna, Adriamycin and ifosfamide regimen. She has grade 1-2 side effects, but is still tolerating treatment reasonably well. He went was delayed due to access issues, but according to nursing, no problems noted after repeat access was obtained yesterday. Continue treatment per protocol, with the monitoring by clinical exams and labs. Status: Acute (2) Anemia aplastic aregenerative Narrative/Plan: Hemoglobin remains stable in the safe range. No acute intervention required. Continue to monitor. Status: Acute
[2017-04-08] MEDS: SODIUM CHLORIDE 0.9% IV SCH ×5 (02:43→23:50)
[2017-04-08] MEDS: MESNA IV SCH ×4 (02:43→23:50)
[2017-04-08] MEDS: SODIUM CHLORIDE 0.9% 1,000 ML IV SCH ×3 (05:56→15:29)
[2017-04-08 06:01] LABS: Anisocytosis Slight; Basophils % (A) 1 %; CH 29.2; CHCM 34.3; Eosinophils # (A) 0.1 k/uL (0-0.7); Eosinophils % (A) 1 %; HCT 31.9 % (34.0-46.0); HDW 3.11; HGB 10.4 gm/dL (11.4-16.0); Luc # (Auto) 0.06; Luc % (Auto) 1; Lymphocytes # (A) 0.6 k/uL (1.0-4.8); Lymphocytes % (A) 13 %; MCHC 32.7 g/dL (31.0-37.0); MCV 85.7 fL (80.0-100.0); Mean Platelet Volume 7.6; Monocytes # (A) 0.2 k/uL (0-1.0); Monocytes % (A) 5 %; Neutrophils # (A) 3.8 k/uL (1.3-7.7); Neutrophils % (A) 79 %; RBC 3.73 m/uL (3.80-5.40); WBC 4.8 k/uL (3.8-10.6); WBC (Perox) 4.95
[2017-04-08 07:52] LABS: Glucose,Whole Blood 78 mg/dL (75-99)
[2017-04-08] MEDS: WITCH HAZEL 1 EACH MED..PAD TOPICAL SCH ×4 (08:44→22:04)
[2017-04-08] MEDS: MAG HYDROX/AL HYDROX/SIMETH 30 ML, LIDOCAINE VISCOUS 30 ML, diphenhydrAMINE ELIXIR 75 M... PO SCH ×12 (08:44→21:44)
[2017-04-08] MEDS: LORATADINE 10 MG TAB PO SCH (08:45)
[2017-04-08] MEDS: SALT AND SODA MOUTHWASH 1,000 ML PO SCH ×4 (08:45→21:43)
[2017-04-08] MEDS: ENOXAPARIN 40 MG/0.4 ML SYRINGE SQ SCH (08:45)
[2017-04-08] MEDS: metFORMIN 500 MG TAB PO SCH ×2 (08:47→21:41)
[2017-04-08] MEDS: TOUJEO 300 UNITS/ML SQ SCH ×2 (08:47→21:41)
[2017-04-08] MEDS: APIDRA 100 UNIT/ML SQ SCH ×4 (08:47→21:42)
[2017-04-08] MEDS: METOPROLOL TARTRATE 25 MG TAB PO SCH ×2 (08:47→21:43)
[2017-04-08] MEDS: ONDANSETRON 4 MG/2 ML VIAL IVP PRN (08:58)
[2017-04-08] MEDS: HYDROcodone/APAP 5-325MG 1 EACH TAB PO PRN ×3 (10:40→23:48)
[2017-04-08] MEDS: ALPRAZolam 0.25 MG TAB PO PRN ×2 (10:41→19:08)
[2017-04-08 11:33] LABS: Glucose,Whole Blood 97 mg/dL (75-99)
[2017-04-08] MEDS: DEXAMETHASONE SOD PHOSPHATE 10 MG/ML 1 ML VIAL IV SCH (14:46)
[2017-04-08] MEDS: ONDANSETRON 16 MG in SODIUM CHLORIDE 0.9% 50 ML IVPB SCH (14:46)
[2017-04-08] MEDS: FAMOTIDINE 20 MG/2 ML VIAL IV SCH (14:46)
[2017-04-08] MEDS: IFOSFAMIDE IV SCH (15:52)
[2017-04-08 17:37] LABS: Glucose,Whole Blood 195 mg/dL (75-99)
[2017-04-08 20:43] LABS: Glucose,Whole Blood 223 mg/dL (75-99)
[2017-04-08] MEDS: LISINOPRIL 5 MG TAB PO SCH (21:41)
[2017-04-08] MEDS: diphenhydrAMINE 50 MG CAP PO SCH (21:43)
[2017-04-08] MEDS: GABAPENTIN 300 MG CAP PO SCH (21:43)
[2017-04-08] MEDS: MONTELUKAST 10 MG TAB PO SCH (21:43)
[2017-04-08] MEDS: ATORVASTATIN 20 MG TAB PO SCH (21:43)
[2017-04-08] MEDS: FENOFIBRATE 160 MG TAB PO SCH (21:43)
[2017-04-09] MEDS: SODIUM CHLORIDE 0.9% 1,000 ML IV SCH ×2 (03:40→08:25)
[2017-04-09 06:31] VITALS: BP 122/72; PULSE 69; RESP 18; TEMP 98
[2017-04-09 07:20] LABS: ALT 56 U/L (9-52); AST 28 U/L (14-36); Alkaline Phosphatase 70 U/L (38-126); Anion Gap 7 mmol/L; Blood Urea Nitrogen 11 mg/dL (7-17); Calcium 9.2 mg/dL (8.4-10.2); Carbon Dioxide 22 mmol/L (22-30); Chloride 110 mmol/L (98-107); Glucose 96 mg/dL (74-99); Non-African American GFR(MDRD) >60 (>60 ml/min/1.73 sqM); Potassium 4.9 mmol/L (3.5-5.1); Sodium 139 mmol/L (137-145); Total Bilirubin 0.5 mg/dL (0.2-1.3); Total Protein 5.7 g/dL (6.3-8.2)
[2017-04-09 07:54] LABS: Glucose,Whole Blood 93 mg/dL (75-99)
[2017-04-09] MEDS: MAG HYDROX/AL HYDROX/SIMETH 30 ML, LIDOCAINE VISCOUS 30 ML, diphenhydrAMINE ELIXIR 75 M... PO SCH ×8 (08:22→08:28)
[2017-04-09] MEDS: ENOXAPARIN 40 MG/0.4 ML SYRINGE SQ SCH (08:22)
[2017-04-09] MEDS: LORATADINE 10 MG TAB PO SCH (08:22)
[2017-04-09] MEDS: metFORMIN 500 MG TAB PO SCH ×2 (08:22→08:29)
[2017-04-09] MEDS: METOPROLOL TARTRATE 25 MG TAB PO SCH (08:22)
[2017-04-09] MEDS: SALT AND SODA MOUTHWASH 1,000 ML PO SCH (08:23)
[2017-04-09] MEDS: TOUJEO 300 UNITS/ML SQ SCH (08:23)
[2017-04-09] MEDS: APIDRA 100 UNIT/ML SQ SCH (08:23)
[2017-04-09] MEDS: WITCH HAZEL 1 EACH MED..PAD TOPICAL SCH (08:24)
[2017-04-09] MEDS: ONDANSETRON 4 MG/2 ML VIAL IVP PRN (08:58)
[2017-04-09] MEDS ORDERED: LOPERAMIDE 2 MG CAP PO PRN (10:19)
[2017-04-09] MEDS ORDERED: ONDANSETRON ODT 4 MG TAB PO PRN (10:19)
[2017-04-09] MEDS ORDERED: FAMOTIDINE 20 MG TAB PO PRN (10:19)
[2017-04-09] MEDS ORDERED: ALPRAZolam 0.25 MG TAB PO PRN (10:19)
[2017-04-09] MEDS ORDERED: HYDROcodone/APAP 5-325MG 1 EACH TAB PO PRN (10:19)
--- NOTE | 2017-04-09 10:27 | P.DS ---
Providers Date of admission: 04/04/17 08:08 Expected date of discharge: 04/09/17 Attending physician: Pal Mukherjee Consults: 04/04/17 17:43 Consult Physician Routine Consulting Provider: Bay Montero Jr Consult Reason/Comments: medical management Do you want consulting provider notified?: Yes, Notify in am Primary care physician: Bay Montero - Discharge Diagnosis(es) (1) Liposarcoma Current Visit: Yes Status: Acute Priority: High (2) Anemia aplastic aregenerative Current Visit: Yes Status: Acute Hospital Course: The patient was admitted for high dose infusional chemotherapy, specifically that NORIS regimen, adjuvantly for her partially resected liposarcoma. Treatment was administered per protocol, with close monitoring with clinical exams and labs. He tolerated treatment usually well, though she did have some diarrhea as well as [id number] nausea. These were well- controlled with supportive medications. Blood counts remain satisfactory and did not require supplementation. Chemotherapy had to be temporarily held during this admission, because of some axis issues which are subsequently resolved. After completion of treatment, as the patient was felt to be clinically stable by exam and labs, it was decided to discharge her home. Pertinent Studies: Vascular ultrasound Procedures: High dose infusional chemotherapy Patient Condition at Discharge: Fair Plan - Discharge Summary New Discharge Prescriptions: No Action Insulin Glulisine [Apidra] 25 unit SQ AC-TID Insulin Glargine,Hum.rec.anlog [Toujeo Solostar] 20 units SQ HS Insulin Glargine,Hum.rec.anlog [Toujeo Solostar] 80 units SQ QAM metFORMIN HCL ER [Glucophage Xr] 500 mg PO BID Enalapril [Vasotec] 2.5 mg PO HS ALPRAZolam [Xanax] 0.25 mg PO Q6H PRN PRN Reason: Anxiety/Insomnia Albuterol Sulfate [Proair Hfa] 2 puff INHALATION RT-Q6H PRN PRN Reason: Shortness Of Breath Fenofibrate [Lofibra] 160 mg PO HS Montelukast [Singulair] 10 mg PO HS Famotidine [Pepcid] 20 mg PO HS PRN PRN Reason: Indigestion Atorvastatin [Lipitor] 20 mg PO HS Ergocalciferol [Vitamin D2 (DRISDOL)] 50,000 unit PO TU Loratadine [Claritin] 10 mg PO QAM Metoprolol Tartrate [Lopressor] 25 mg PO BID Ondansetron Odt [Zofran ODT] 4 mg PO Q8HR PRN PRN Reason: Nausea And Vomiting HYDROcodone/APAP 5-325MG [Tilden 5-325] 1 tab PO Q4HR PRN #60 tab PRN Reason: Pain Loperamide [Imodium] 2 mg PO DAILY PRN PRN Reason: Diarrhea Gabapentin 600 mg PO HS Insulin Glulisine [Apidra Solostar] 0 units SQ HS Discharge Medication List ALPRAZolam [Xanax] 0.25 mg PO Q6H PRN 12/31/16 [History] Albuterol Sulfate [Proair Hfa] 2 puff INHALATION RT-Q6H PRN 12/31/16 [History] Atorvastatin [Lipitor] 20 mg PO HS 12/31/16 [History] Enalapril [Vasotec] 2.5 mg PO HS 12/31/16 [History] Ergocalciferol [Vitamin D2 (DRISDOL)] 50,000 unit PO TU 12/31/16 [History] Famotidine [Pepcid] 20 mg PO HS PRN 12/31/16 [History] Fenofibrate [Lofibra] 160 mg PO HS 12/31/16 [History] Insulin Glargine,Hum.rec.anlog [Toujeo Solostar] 20 units SQ HS 12/31/16 [ History] Insulin Glargine,Hum.rec.anlog [Toujeo Solostar] 80 units SQ QAM 12/31/16 [ History] Insulin Glulisine [Apidra] 25 unit SQ AC-TID 12/31/16 [History] Loratadine [Claritin] 10 mg PO QAM 12/31/16 [History] Metoprolol Tartrate [Lopressor] 25 mg PO BID 12/31/16 [History] Montelukast [Singulair] 10 mg PO HS 12/31/16 [History] metFORMIN HCL ER [Glucophage Xr] 500 mg PO BID 12/31/16 [History] Ondansetron Odt [Zofran ODT] 4 mg PO Q8HR PRN 02/07/17 [History] HYDROcodone/APAP 5-325MG [Tilden 5-325] 1 tab PO Q4HR PRN #60 tab 02/24/17 [Rx] Loperamide [Imodium] 2 mg PO DAILY PRN 03/13/17 [History] Gabapentin 600 mg PO HS 04/04/17 [History] Insulin Glulisine [Apidra Solostar] 0 units SQ HS 04/04/17 [History] Follow up Appointment(s)/Referral(s): Pal Mukherjee MD [STAFF PHYSICIAN] - (Office on 04/10/17 for Geovanny THOMASON as already scheduled) Discharge Disposition: HOME SELF-CARE
--- NOTE | 2017-04-10 00:21 | P.PN ---
Subjective The patient is continuing chemotherapy per protocol. He states that she feels quite fatigued today. She has had some intermittent nausea but no vomiting. She has not had any diarrhea today. Appetite is still diminished, but she is maintaining her by mouth intake at a reasonable level. Objective - Vital Signs Vital signs: Vital Signs Temp 98 F 04/09/17 06:30 Pulse 69 04/09/17 06:30 Resp 18 04/09/17 06:30 BP 122/72 04/09/17 06:30 Pulse Ox 99 04/09/17 06:30 Intake & Output 04/09/17 04/09/17 04/10/17 06:59 18:59 06:59 Intake Total 1434.85 Balance 1434.85 Weight 90 kg Intake: IV 1235.4 DOXOrubicin HCL 50 mg In 85.4 Sodium Chloride 0.9% 1, 000 ml @ 42.708 mls/hr IV Q24H [facility] Rx#:[id number] Sodium Chloride 0.9% 1, 1150 000 ml @ 100 mls/hr IV . Q10H [facility]W Rx#:[id number] Intake, IV Titration 199.45 Amount DOXOrubicin HCL 50 mg In 149.45 Sodium Chloride 0.9% 1, 000 ml @ 42.708 mls/hr IV Q24H [facility]W Rx#:[id number] Mesna 1,000 mg In Sodium 50 Chloride 0.9% 50 ml @ 240 mls/hr IV Q24H [facility]W Rx#: [id number] Other: Voiding Method Toilet Toilet # Voids 1 - Constitutional General appearance: Present: no acute distress - EENT Eyes: Present: EOMI, PERRLA ENT: Present: hearing grossly normal, normal oropharynx - Respiratory Respiratory: bilateral: CTA - Cardiovascular Rhythm: regular Heart sounds: normal: S1, S2 - Gastrointestinal General gastrointestinal: Present: normal bowel sounds, soft - Integumentary Integumentary: Present: normal - Neurologic Neurologic: Present: CNII-XII intact - Musculoskeletal Musculoskeletal: Present: generalized weakness, strength equal bilaterally - Psychiatric Psychiatric: Present: A&O x's 3, appropriate affect - Labs CBC & Chem 7: 04/08/17 05:50 04/09/17 06:30 Labs: Abnormal Lab Results - Last 24 Hours (Table) 04/09/17 Range/Units 06:30 Chloride 110 H (98-107) mmol/L ALT 56 H (9-52) U/L Total Protein 5.7 L (6.3-8.2) g/dL Albumin 3.3 L (3.5-5.0) g/dL Assessment and Plan (1) Liposarcoma Narrative/Plan: The patient continues on high dose infusional chemotherapy, with the NORIS regimen. She somewhat more fatigued today. Her diarrhea is improved. Nausea continues to be intermittent without overt vomiting. Appetite is starting to drop but she still maintaining her by mouth intake. Labs were reviewed, and were satisfactory. New treatment with the monitoring with clinical exams, and labs. She will complete treatment tonight. Status: Acute (2) Anemia aplastic aregenerative Narrative/Plan: Hemoglobin has remained stable in the 10 range, with no need for supplementation. Other counts are also maintained. She'll be followed closely with labs in the outpatient setting. Status: Acute Plan: Assuming that the patient is stable, after completion of chemotherapy, the plan would be to discharge her in the a.m.
[2017-04-11] MEDS ORDERED: ERGOCALCIFEROL 50,000 UNIT CAP PO SCH (09:00)
== END 2017-04-09 12:18 | disposition home or self-care (01) | DRG 847 ==
LOC: 5ONC 08:08
PROVIDERS: ADMIT Internal Medicine Hematology & Oncology; ATTEND Internal Medicine Hematology & Oncology
DX: Z51.11 Encounter for antineoplastic chemotherapy (principal); J98.11 Atelectasis; C76.3 Malignant neoplasm of pelvis; D64.81 Anemia due to antineoplastic chemotherapy; E11.9 Type 2 diabetes mellitus without complications; E78.5 Hyperlipidemia, unspecified; I10 Essential (primary) hypertension; J45.909 Unspecified asthma, uncomplicated; K21.9 Gastro-esophageal reflux disease without esophagitis; M17.0 Bilateral primary osteoarthritis of knee; M79.7 Fibromyalgia; T45.1X5A Adverse effect of antineoplastic and immunosuppressive drugs, initial encounter; Z79.4 Long term (current) use of insulin; Z79.84 Long term (current) use of oral hypoglycemic drugs; Z79.899 Other long term (current) drug therapy; Z88.2 Allergy status to sulfonamides; Z88.0 Allergy status to penicillin
CPT/HCPCS: 76937; 76942; 80053; 85025

== ENCOUNTER → 2017-04-17 | Outpatient (CLI) | payer MEDICAID ==
[2017-04-17 11:24] LABS: Blood Urea Nitrogen 13 mg/dL (7-17); Non-African American GFR(MDRD) >60 (>60 ml/min/1.73 sqM)
--- NOTE | 2017-04-17 13:49 | CT ---
EXAMINATION TYPE: CT ChestAbdPelvis w con DATE OF EXAM: 04/17/2017 COMPARISON: CT chest March 10, 2017 and older study January 10, 2017. CT abdomen and pelvis December 31 7 HISTORY: Liposarcoma per order progress study. Originally diagnosed December 30, 2016, recently completed chemotherapy April 07, 2017 CT DLP: 2926 mGycm. Automated Exposure Control for Dose Reduction was Utilized. CONTRAST: CT scan of the thorax, abdomen and pelvis is performed with oral and with IV Contrast, patient inject ed with 100 mL of Omnipaque 300. FINDINGS: LUNGS: There is stable 5 x 4 mm nodule anterior right upper lobe on axial image 20. There is stable 4 mm nodule right middle lobe on axial image 35. There is stable 3 mm groundglass nodule lateral righ t lower lobe on axial image 35. There is stable 4 mm nodule left lower lobe laterally on axial image 32. There is stable 4 mm nodule left upper lobe laterally on axial image 21. Small micronodules mid t o lower right lung anteriorly on axial image 30 are stable. No new suspicious greater than 6 mm paren chymal nodule or mass is present. There Is no pleural effusion or pneumothorax seen bilaterally. The tracheobronchial tree is patent. MEDIASTINUM: There are no greater than 1 cm hilar or mediastinal lymph nodes. No cardiomegaly or pe ricardial effusion is seen. OTHER: There is stable right subclavian Mediport catheter with tip at brachiocephalic confluence. LIVER/GB: No significant abnormality is appreciated. PANCREAS: No significant abnormality is seen. SPLEEN: Spleen measures 12.8 cm on long axis on current study axial image 60 slightly more prominent than prior exam. ADRENALS: No significant abnormality is seen. KIDNEYS: On coronal images there appears to be 2-3 calculi measuring up to 8 mm long axis on image 61 within the upper to mid pole calyces. Urinary bladder is poorly distended with mild abnormal concent michel wall thickening. Circumaortic left renal vein is seen which is normal variant. BOWEL: No significant abnormality is seen. GENITAL ORGANS: Uterus is surgically absent. Scattered pelvic phleboliths are seen. LYMPH NODES: No greater than 1cm abdominal or pelvic lymph nodes are appreciated. OSSEOUS STRUCTURES: There is disc space narrowing with vacuum disc phenomenon L4-L5 and L5-S1 levels. OTHER: Left of the rectum with local mass effect there is redemonstration of heterogeneous soft tissu e mass measuring 6.1 cm long axis on axial image 1 14 x 4.4 cm transversely, mass measures roughly 8. 8 cm on craniocaudal dimension sagittal image 69 as there is some lobulation seen superiorly with vignesh e hypodense areas noted superior aspect, there is mild surrounding fat stranding along superior aspec t near clips and sutures. Mass is posterior to the vaginal canal and cervical remnant. Masses signifi cantly diminished in size from prior CT abdomen pelvis study. IMPRESSION: 1. Positive treatment response to presacral mass left of the rectum diminished in size as detailed ab ove. Stable scattered thoracic nodules. No new mass or adenopathy is noted. 2. Mild concentric wall thickening in the poorly distended bladder could reflect product of treatment change, a cystitis needs to be excluded. Clinical correlation advised.
== END | disposition home or self-care (01) ==
LOC: RADPROMAIN 10:31
PROVIDERS: ATTEND Internal Medicine Hematology & Oncology
DX: C49.9 Malignant neoplasm of connective and soft tissue, unspecified (principal); N32.89 Other specified disorders of bladder
CPT/HCPCS: 82565; 84520; 71260; 74177; 36415; Q9967

== ENCOUNTER 2017-04-24 08:39 | Inpatient (IN) | payer MEDICAID ==
[2017-04-24] MEDS: SODIUM CHLORIDE 0.9% 1,000 ML IV SCH ×2 (09:00→23:13)
[2017-04-24] MEDS ORDERED: DOCUSATE 100 MG CAP PO PRN (09:15)
[2017-04-24] MEDS ORDERED: LOPERAMIDE 2 MG CAP PO PRN ×2 (09:15→10:44)
[2017-04-24] MEDS ORDERED: ALTEPLASE 2 MG VIAL (CATHFLO) IV STA (09:44)
[2017-04-24] MEDS: SALT AND SODA MOUTHWASH 1,000 ML PO SCH ×4 (10:23→20:53)
[2017-04-24] MEDS ORDERED: FAMOTIDINE 20 MG TAB PO PRN (10:44)
[2017-04-24] MEDS ORDERED: ONDANSETRON ODT 4 MG TAB PO PRN (10:44)
[2017-04-24] MEDS ORDERED: ALBUTEROL NEBULIZED 2.5 MG/3 ML INHALATION PRN (10:44)
--- NOTE | 2017-04-24 11:29 | P.CONS ---
History of Present Illness - Reason for Consult Consult date: 04/24/17 Medical Management - Chief Complaint Liposarcoma/inpatient chemo - History of Present Illness 56-year-old female who was admitted to the hospital on 04/24/[address] Ling/Kylah was consulted for medical management. 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 The patient states this is her fourth cycle out of a total of 6 cycles. The patient has a history of exploratory lap in December 2016 with excision of a pelvic mass, grade III that extended to the margins. The patient went to the sarcoma clinic at [facility] and her case was discussed with the tumor board. Recommendations were made and the patient has been following up with Dr. Mukherjee for her chemotherapy treatment. Currently the patient states she is feeling well. She states that she was just starting to feel back to normal and then it was time for her to come in for a another round of chemotherapy. She denies shortness of breath or chest pain. Patient states her appetite is fair. She denies any abdominal pain, constipation, or diarrhea. The patient has brought in her own insulin from home which she may use. She also uses her on sliding scale. She received tPA through her mediport this morning and is functioning without difficulty at this time. Review of Systems Those systems with pertinent positives or pertinent negatives have been documented in the HPI Past Medical History Past Medical History: Asthma, Cancer, Diabetes Mellitus, Fibromyalgia, GERD/ Reflux, Hyperlipidemia, Hypertension, Osteoarthritis (OA), Renal Disease Additional Past Medical History / Comment(s): Liposarcoma 12/31/16 with pelvic mass removal, IDDM type II, L elbow fracture-surgery/bone removal, arthritis bilateral knees/shoulders/L elbow, DDD- cervical spine and upper back, lower spinal stenosis, bilateral tinnitis, neuropathy chin and arms at times. History of Any Multi-Drug Resistant Organisms: None Reported Past Surgical History: Adenoidectomy, Appendectomy, Section, Hysterectomy, Orthopedic Surgery, Tonsillectomy Additional Past Surgical History / Comment(s): Exploratory lap with pelvic mass removal, port placement, kidney stent/removed, D&C, right lateral salpingo- oophorectomy, colonoscopy, umbilical hernia repair, L knee arthroscopy, L elbow implant then bone removal. Past Anesthesia/Blood Transfusion Reactions: Postoperative Nausea & Vomiting ( PONV) Smoking Status: Never smoker - Past Family History Mother Family Medical History: Cancer Additional Family Medical History / Comment(s): eye, heart disease Father Additional Family Medical History / Comment(s): ALS, . Sister(s) Additional Family Medical History / Comment(s): ALS - Medications and Allergies Home Medications Medication Instructions Recorded Confirmed Type ALPRAZolam [Xanax] 0.25 mg PO Q6H PRN 12/31/16 04/24/17 History Albuterol Sulfate [Proair Hfa] 2 puff INHALATION RT-Q6H PRN 12/31/16 04/24/17 History Atorvastatin [Lipitor] 20 mg PO HS 12/31/16 04/24/17 History Enalapril [Vasotec] 2.5 mg PO HS 12/31/16 04/24/17 History Ergocalciferol [Vitamin D2 50,000 unit PO TU 12/31/16 04/24/17 History (DRISDOL)] Famotidine [Pepcid] 20 mg PO HS PRN 12/31/16 04/24/17 History Fenofibrate [Lofibra] 160 mg PO HS 12/31/16 04/24/17 History Insulin Glargine,Hum.rec.anlog 20 units SQ 12/31/16 04/24/17 History [Toujeo Solostar] Insulin Glargine,Hum.rec.anlog 80 units SQ [facility] 12/31/16 04/24/17 History [Toujeo Solostar] Insulin Glulisine [Apidra] See Protocol SQ AC-TID 12/31/16 04/24/17 History Loratadine [Claritin] 10 mg PO QAM 12/31/16 04/24/17 History Metoprolol Tartrate [Lopressor] 25 mg PO BID 12/31/16 04/24/17 History Montelukast [Singulair] 10 mg PO HS 12/31/16 04/24/17 History metFORMIN HCL ER [Glucophage Xr] 500 mg PO BID 12/31/16 04/24/17 History Ondansetron Odt [Zofran ODT] 4 mg PO Q8HR PRN 02/07/17 04/24/17 History HYDROcodone/APAP 5-325MG [[place] 1 tab PO Q4HR PRN #60 tab 02/24/17 04/24/17 Rx 5-325] Loperamide [Imodium] 2 mg PO DAILY PRN 03/13/17 04/24/17 History Gabapentin 600 mg PO HS 04/04/17 04/24/17 History Insulin Glulisine [Apidra Solostar] See Protocol SQ HS 04/04/17 04/24/17 History Allergies Allergy/AdvReac Type Severity Reaction Status Date / Time Penicillins Allergy Dyspnea/Rolando Verified 04/24/17 09:50 h Sulfa (Sulfonamide Allergy Unknown Verified 04/24/17 09:50 Antibiotics) Childhood artificial sweetner Allergy Severe Rash/Hives Uncoded 02/10/17 08:18 Physical Exam Vitals: Vital Signs Temp Pulse Resp BP Pulse Ox 04/24/17 09:00 97.8 F 97 16 128/82 94 L Intake and Output 04/23/17 04/24/17 04/24/17 22:59 06:59 14:59 Other: Weight 90 kg Patient Weight 04/25/17 06:59 Weight 90 kg GENERAL: Alert and oriented. Appears in no acute distress. Pleasant and cooperative. RESPIRATORY: Lungs clear bilaterally. No use of accessory muscles. Patient maintaining oxygen saturation greater than 92% on room air. CARDIOVASCULAR: Report to the right chest wall. S1 and S2 noted. No murmurs auscultated. No JVD noted. EXTREMITIES: No edema noted. Palpable pedal pulses +2. ABDOMEN: No distention noted. Abdomen soft and round. Normal active bowel sounds auscultated 4 quadrants. No pain or tenderness noted upon palpation. Assessment and Plan Plan: ASSESSMENT: Liposarcoma, admitted for 4th round of chemotherapy History of diabetes mellitus, type II History of fibromyalgia History of essential hypertension History of osteoarthritis PLAN: -Continue with chemotherapy regimen per Dr. Mukherjee -Resume home meds -GI prophylaxis: Pepcid 20 mg IV daily -DVT prophylaxis: Lovenox 40 mg daily -Continue Zofran for nausea -Monitor vital signs and address as appropriate -Monitor labs -Monitor capillary blood glucose. Patient brought her own insulin from home. The above impression and plan of care have been discussed and directed by signing physician. Bridget Mckeon, nurse practitioner, acting as scribe for signing physician.
[2017-04-24] MEDS ORDERED: FOSAPREPITANT DIMEGLUMINE 150 MG in SODIUM CHLORIDE 0.9% 145 ML IV ONE (12:30)
[2017-04-24] MEDS ORDERED: MESNA IV SCH ×3 (12:45→21:00)
[2017-04-24] MEDS ORDERED: SODIUM CHLORIDE 0.9% IV SCH ×4 (12:45→21:00)
[2017-04-24] MEDS ORDERED: IFOSFAMIDE IV SCH (13:00)
[2017-04-24 13:47] LABS: Anisocytosis Moderate; Basophils # (A) 0.1 k/uL (0-0.2); Basophils % (A) 1 %; CH 30.1; CHCM 33.9; Eosinophils # (A) 0.1 k/uL (0-0.7); Eosinophils % (A) 1 %; HCT 29.2 % (34.0-46.0); HDW 3.44; HGB 9.6 gm/dL (11.4-16.0); Luc # (Auto) 0.09; Luc % (Auto) 1; Lymphocytes # (A) 0.6 k/uL (1.0-4.8); Lymphocytes % (A) 7 %; MCH 29.4 pg (25.0-35.0); MCHC 32.9 g/dL (31.0-37.0); MCV 89.4 fL (80.0-100.0); Macrocytosis Slight; Mean Platelet Volume 10.6; Monocytes # (A) 0.7 k/uL (0-1.0); Monocytes % (A) 8 %; Neutrophils # (A) 7.7 k/uL (1.3-7.7); Neutrophils % (A) 83 %; Poikilocytosis Slight; RBC 3.27 m/uL (3.80-5.40); RDW 21.4 % (11.5-15.5); WBC 9.3 k/uL (3.8-10.6); WBC (Perox) 9.81
[2017-04-24 13:52] LABS: ALT 45 U/L (9-52); AST 35 U/L (14-36); Alkaline Phosphatase 99 U/L (38-126); Anion Gap 7 mmol/L; Blood Urea Nitrogen 16 mg/dL (7-17); Calcium 9.3 mg/dL (8.4-10.2); Carbon Dioxide 27 mmol/L (22-30); Chloride 105 mmol/L (98-107); Glucose 94 mg/dL (74-99); Non-African American GFR(MDRD) >60 (>60 ml/min/1.73 sqM); Potassium 4.1 mmol/L (3.5-5.1); Sodium 139 mmol/L (137-145); Total Bilirubin 0.3 mg/dL (0.2-1.3); Total Protein 6.2 g/dL (6.3-8.2)
[2017-04-24] MEDS: APIDRA INSULIN SQ SCH ×3 (14:01→20:52)
[2017-04-24] MEDS: DEXAMETHASONE SOD PHOSPHATE 10 MG/ML 1 ML VIAL IV SCH (14:05)
[2017-04-24] MEDS: ONDANSETRON 16 MG in SODIUM CHLORIDE 0.9% 50 ML IVPB SCH (14:05)
[2017-04-24] MEDS: FAMOTIDINE 20 MG/2 ML VIAL IVP SCH (14:05)
[2017-04-24 15:21] LABS: Manual Review Performed
[2017-04-24 15:23] LABS: Polychromasia Present; Toxic Granulation Present
--- NOTE | 2017-04-24 15:55 | P.HPIM ---
History of Present Illness H&P Date: 04/24/17 Chief Complaint: Admit for CIVI chemotherapy for liposarcoma Mrs. Mcrae is a very pleasant female pt of Dr. 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 Pt was referred to [facility], recommendation was for adjuvant adriamycin and ifosfamide. Pt 1st cycle was 02/20/17. Treatment f/ u CT CAP on 04/17/17 showed stable chest and significant decrease in size of presacral mass. Pt admitted for cycle 4 today. Pt states feeling ok coming into today, she denies fevers, oral irritation, nausea, indigestion, appetite is ok, she does bring food from home, she denies sore throat, cough, SOB, palpitations, swelling in the legs. No diarrhea or constipation, dysuria, hematuria. Denies pain, she is independently ambulatory. Review of Systems 14 point ROS is negative except as stated in HPI Past Medical History Past Medical History: Asthma, Cancer, Diabetes Mellitus, Fibromyalgia, GERD/ Reflux, Hyperlipidemia, Hypertension, Osteoarthritis (OA), Renal Disease Additional Past Medical History / Comment(s): Liposarcoma 12/31/16 with pelvic mass removal, IDDM type II, L elbow fracture-surgery/bone removal, arthritis bilateral knees/shoulders/L elbow, DDD- cervical spine and upper back, lower spinal stenosis, bilateral tinnitis, neuropathy chin and arms at times. History of Any Multi-Drug Resistant Organisms: None Reported Past Surgical History: Adenoidectomy, Appendectomy, Section, Hysterectomy, Orthopedic Surgery, Tonsillectomy Additional Past Surgical History / Comment(s): Exploratory lap with pelvic mass removal, port placement, kidney stent/removed, D&C, right lateral salpingo- oophorectomy, colonoscopy, umbilical hernia repair, L knee arthroscopy, L elbow implant then bone removal. Past Anesthesia/Blood Transfusion Reactions: Postoperative Nausea & Vomiting ( PONV) Smoking Status: Never smoker - Past Family History Mother Family Medical History: Cancer Additional Family Medical History / Comment(s): eye, heart disease Father Additional Family Medical History / Comment(s): ALS, . Sister(s) Additional Family Medical History / Comment(s): ALS - Medications and Allergies Home Medications Medication Instructions Recorded Confirmed Type ALPRAZolam [Xanax] 0.25 mg PO Q6H PRN 12/31/16 04/24/17 History Albuterol Sulfate [Proair Hfa] 2 puff INHALATION RT-Q6H PRN 12/31/16 04/24/17 History Atorvastatin [Lipitor] 20 mg PO HS 12/31/16 04/24/17 History Enalapril [Vasotec] 2.5 mg PO HS 12/31/16 04/24/17 History Ergocalciferol [Vitamin D2 50,000 unit PO TU 12/31/16 04/24/17 History (JOSE)] Famotidine [Pepcid] 20 mg PO HS PRN 12/31/16 04/24/17 History Fenofibrate [Lofibra] 160 mg PO HS 12/31/16 04/24/17 History Insulin Glargine,Hum.rec.anlog 20 units SQ HS 12/31/16 04/24/17 History [Toujeo Solostar] Insulin Glargine,Hum.rec.anlog 80 units SQ QAM 12/31/16 04/24/17 History [Toujeo Solostar] Insulin Glulisine [Apidra] See Protocol SQ AC-TID 12/31/16 04/24/17 History Loratadine [Claritin] 10 mg PO QAM 12/31/16 04/24/17 History Metoprolol Tartrate [Lopressor] 25 mg PO BID 12/31/16 04/24/17 History Montelukast [Singulair] 10 mg PO HS 12/31/16 04/24/17 History metFORMIN HCL ER [Glucophage Xr] 500 mg PO BID 12/31/16 04/24/17 History Ondansetron Odt [Zofran ODT] 4 mg PO Q8HR PRN 02/07/17 04/24/17 History HYDROcodone/APAP 5-325MG [[place] 1 tab PO Q4HR PRN #60 tab 02/24/17 04/24/17 Rx 5-325] Loperamide [Imodium] 2 mg PO DAILY PRN 03/13/17 04/24/17 History Gabapentin 600 mg PO HS 04/04/17 04/24/17 History Insulin Glulisine [Apidra Solostar] See Protocol SQ HS 04/04/17 04/24/17 History Allergies Allergy/AdvReac Type Severity Reaction Status Date / Time Penicillins Allergy Dyspnea/Rolando Verified 04/24/17 09:50 h Sulfa (Sulfonamide Allergy Unknown Verified 04/24/17 09:50 Antibiotics) Childhood artificial sweetner Allergy Severe Rash/Hives Uncoded 02/10/17 08:18 Physical Exam Vitals: Vital Signs Temp Pulse Resp BP Pulse Ox 04/24/17 09:00 97.8 F 97 16 128/82 94 L Intake and Output 04/23/17 04/24/17 04/24/17 22:59 06:59 14:59 Other: Weight 90 kg Patient Weight 04/25/17 06:59 Weight 90 kg - Constitutional General appearance: cooperative, no acute distress, obese - EENT Eyes: anicteric sclerae, EOMI, PERRLA, normal appearance ENT: hearing grossly normal, normal oropharynx - Neck Neck: no lymphadenopathy - Respiratory Respiratory: bilateral: CTA - Cardiovascular Rhythm: regular Heart sounds: normal: S1, S2 Abnormal Heart Sounds: no systolic murmur, no diastolic murmur, no rub, no S3 Gallop, no S4 Gallop, no click, no other leg Peripheral Edema: bilateral: None - Gastrointestinal midline incision is palpable General gastrointestinal: no absent bowel sounds, no decreased bowel sounds, no distended, no hepatomegaly, no hyperactive bowel sounds, normal bowel sounds, no organomegaly, no rigid, no scaphoid, soft, no splenomegaly, no tenderness, no umbilical hernia, no ventral hernia - Integumentary Integumentary: normal - Neurologic Neurologic: CNII-XII intact - Musculoskeletal Musculoskeletal: strength equal bilaterally - Psychiatric Psychiatric: A&O x's 3, appropriate affect, intact judgment & insight Results CBC & Chem 7: 04/24/17 12:30 04/24/17 12:30 Thrombosis Risk Factor Assmnt - DVT/VTE Prophylaxis DVT/VTE Prophylaxis: Pharmacologic Prophylaxis ordered - Choose All That Apply Any of the Below Risk Factors Present?: Yes Each Factor Represents 1 point: Age 41-60 years, Obesity (BMI >25) Other Risk Factors: Yes Each Risk Factor Represents 2 Points: Malignancy Other congenital or acquired thrombophilia - If yes, enter type in comment: No Thrombosis Risk Factor Assessment Total Risk Factor Score: 4 Thrombosis Risk Factor Assessment Level: Moderate Risk Assessment and Plan (1) Liposarcoma Narrative/Plan: Pt being admitted for 4th cycle of chemotherapy. On most recent imaging pt did have residual disease found. Plan is to finish 4 cycles of chemo then be evaluated at [facility] for radiation or surgery on the residual disease. Status: Acute (2) Bicytopenia Narrative/Plan: CBC daily while inpatient, no acute interventions for mod/mild anemia/ thrombocytopenia Status: Acute (3) Asthma Status: Chronic (4) Hyperlipidemia Status: Chronic (5) Hypertension Status: Chronic (6) Insulin dependent diabetes mellitus Status: Chronic Plan: IM consulted for medical management GI/DVT prophylaxis
[2017-04-24] MEDS: DOXORUBICIN HCL IV SCH (15:57)
[2017-04-24] MEDS: SODIUM CHLORIDE 0.9% IV SCH ×3 (15:57→23:56)
[2017-04-24] MEDS: HYDROcodone/APAP 5-325MG 1 EACH TAB PO PRN (17:25)
[2017-04-24] MEDS: MAG HYDROX/AL HYDROX/SIMETH 30 ML, LIDOCAINE VISCOUS 30 ML, diphenhydrAMINE ELIXIR 75 M... PO SCH ×8 (17:27→20:53)
[2017-04-24 17:34] LABS: Glucose,Whole Blood 158 mg/dL (75-99)
[2017-04-24] MEDS: metFORMIN 500 MG TAB PO SCH (17:55)
[2017-04-24 20:12] LABS: Glucose,Whole Blood 217 mg/dL (75-99)
[2017-04-24] MEDS: METOPROLOL TARTRATE 25 MG TAB PO SCH (20:50)
[2017-04-24] MEDS: LISINOPRIL 5 MG TAB PO SCH (20:50)
[2017-04-24] MEDS: ATORVASTATIN 20 MG TAB PO SCH (20:51)
[2017-04-24] MEDS: GABAPENTIN 300 MG CAP PO SCH (20:51)
[2017-04-24] MEDS: MONTELUKAST 10 MG TAB PO SCH (20:51)
[2017-04-24] MEDS: FENOFIBRATE 160 MG TAB PO SCH (20:51)
[2017-04-24] MEDS: TOUJEO INSULIN SQ SCH (20:52)
[2017-04-24] MEDS: MESNA IV SCH ×2 (20:55→23:56)
[2017-04-24] MEDS ORDERED: INSULIN GLULISINE SQ SCH (21:00)
[2017-04-24] MEDS: diphenhydrAMINE 25 MG CAP PO SCH (23:13)
[2017-04-25 07:01] LABS: ALT 43 U/L (9-52); AST 21 U/L (14-36); Alkaline Phosphatase 91 U/L (38-126); Anion Gap 6 mmol/L; Blood Urea Nitrogen 12 mg/dL (7-17); Calcium 8.9 mg/dL (8.4-10.2); Carbon Dioxide 23 mmol/L (22-30); Chloride 107 mmol/L (98-107); Glucose 221 mg/dL (74-99); Non-African American GFR(MDRD) >60 (>60 ml/min/1.73 sqM); Potassium 4.6 mmol/L (3.5-5.1); Sodium 136 mmol/L (137-145); Total Bilirubin 0.3 mg/dL (0.2-1.3); Total Protein 5.4 g/dL (6.3-8.2)
[2017-04-25 07:21] LABS: Glucose,Whole Blood 211 mg/dL (75-99)
[2017-04-25] MEDS: FAMOTIDINE 20 MG/2 ML VIAL IVP SCH (07:51)
[2017-04-25] MEDS: ENOXAPARIN 40 MG/0.4 ML SYRINGE SQ SCH (07:51)
[2017-04-25] MEDS: LORATADINE 10 MG TAB PO SCH (07:52)
[2017-04-25] MEDS: metFORMIN 500 MG TAB PO SCH ×2 (07:52→17:26)
[2017-04-25] MEDS: DEXAMETHASONE SOD PHOSPHATE 10 MG/ML 1 ML VIAL IV SCH (07:52)
[2017-04-25] MEDS: METOPROLOL TARTRATE 25 MG TAB PO SCH ×2 (07:52→21:09)
[2017-04-25] MEDS: TOUJEO INSULIN SQ SCH ×2 (07:53→21:08)
[2017-04-25] MEDS: APIDRA INSULIN SQ SCH ×4 (07:54→21:08)
[2017-04-25] MEDS: MAG HYDROX/AL HYDROX/SIMETH 30 ML, LIDOCAINE VISCOUS 30 ML, diphenhydrAMINE ELIXIR 75 M... PO SCH ×12 (08:17→21:11)
[2017-04-25] MEDS: SALT AND SODA MOUTHWASH 1,000 ML PO SCH ×4 (08:18→21:11)
[2017-04-25] MEDS ORDERED: INSULIN GLARGINE HUM REC ANLOG 80 UNIT SQ SCH (09:00)
[2017-04-25] MEDS ORDERED: ERGOCALCIFEROL 50,000 UNIT CAP PO SCH (09:00)
[2017-04-25] MEDS: SODIUM CHLORIDE 0.9% 1,000 ML IV SCH ×3 (09:43→21:13)
[2017-04-25 11:10] LABS: Glucose,Whole Blood 227 mg/dL (75-99)
[2017-04-25 11:30] VITALS: BMI 30.2
--- NOTE | 2017-04-25 13:12 | P.PN ---
Subjective Principal diagnosis: 56-year-old female who was admitted to the hospital on 04/24/[address] Ling/Kylah was consulted for medical management. 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 The patient states this is her fourth cycle. She believes she will need 6 cycles total. According to oncology, the patient will be evaluated at [facility] after the fourth cycle of chemotherapy for radiation or surgery of the residual disease that was found. The patient has a history of exploratory lap in December 2016 with excision of a pelvic mass, grade III that extended to the margins. The patient has been seeing Dr. Mukherjee for her chemotherapy treatment. Currently the patient states she is feeling well. She denies shortness of breath or chest pain. Patient states her appetite is fair. She has brought food in from home because she states her taste buds have changed since she started chemotherapy. She denies any abdominal pain, constipation, or diarrhea. She stated she had a bowel movement this morning. The patient has brought in her own insulin from home which she may use. She states her blood sugars are harder to control in the hospital but patient is adjusting her insulin based on her glucose readings (patient uses her own sliding scale). Objective - Vital Signs Vital signs: Vital Signs Temp 98.0 F 04/25/17 07:00 Pulse 84 04/25/17 08:26 Resp 16 04/25/17 08:00 BP 117/63 04/25/17 07:00 Pulse Ox 98 04/25/17 07:00 Intake & Output 04/24/17 04/25/17 04/25/17 18:59 06:59 18:59 Intake Total 340 1490 Balance 340 1490 Weight 90 kg 90 kg Intake: IV 1490 [place] 1,000 mg In Sodium 290 Chloride 0.9% 50 ml @ 240 mls/hr IV Q24H MATTHEW Rx#: [id number] Sodium Chloride 0.9% 1, 1200 000 ml @ 100 mls/hr IV . Q10H MATTHEW Rx#:[id number] Intake, IV Titration 100 Amount Sodium Chloride 0.9% 1, 100 000 ml @ 100 mls/hr IV . Q10H MATTHEW Rx#:[id number] Oral 240 Other: Voiding Method Toilet Toilet # Voids 1 - Exam GENERAL: Alert and oriented. Appears in no acute distress. Pleasant and cooperative. RESPIRATORY: Lungs clear bilaterally. No use of accessory muscles. Patient maintaining oxygen saturation greater than 92% on room air. CARDIOVASCULAR: Report to the right chest wall. S1 and S2 noted. No murmurs auscultated. No JVD noted. EXTREMITIES: No edema noted. Palpable pedal pulses +2. ABDOMEN: No distention noted. Abdomen soft and round. Normal active bowel sounds auscultated 4 quadrants. No pain or tenderness noted upon palpation. - Labs CBC & Chem 7: 04/24/17 12:30 04/25/17 06:35 Labs: Abnormal Lab Results - Last 24 Hours (Table) 04/24/17 04/24/17 04/24/17 Range/Units 12:30 12:30 17:32 RBC 3.27 L (3.80-5.40) m/uL Hgb 9.6 L (11.4-16.0) gm/dL Hct 29.2 L (34.0-46.0) % RDW 21.4 H (11.5-15.5) % Plt Count 91 L (150-450) k/uL Lymphocytes # 0.6 L (1.0-4.8) k/uL Sodium (137-145) mmol/L Creatinine (0.52-1.04) mg/dL Glucose (74-99) mg/dL POC Glucose (mg/dL) 158 H (75-99) mg/dL Total Protein 6.2 L (6.3-8.2) g/dL Albumin (3.5-5.0) g/dL 04/24/17 04/25/17 04/25/17 Range/Units 20:02 06:35 07:06 RBC (3.80-5.40) m/uL Hgb (11.4-16.0) gm/dL Hct (34.0-46.0) % RDW (11.5-15.5) % Plt Count (150-450) k/uL Lymphocytes # (1.0-4.8) k/uL Sodium 136 L (137-145) mmol/L Creatinine 0.50 L (0.52-1.04) mg/dL Glucose 221 H (74-99) mg/dL POC Glucose (mg/dL) 217 H 211 H (75-99) mg/dL Total Protein 5.4 L (6.3-8.2) g/dL Albumin 3.1 L (3.5-5.0) g/dL 04/25/17 Range/Units 11:04 RBC (3.80-5.40) m/uL Hgb (11.4-16.0) gm/dL Hct (34.0-46.0) % RDW (11.5-15.5) % Plt Count (150-450) k/uL Lymphocytes # (1.0-4.8) k/uL Sodium (137-145) mmol/L Creatinine (0.52-1.04) mg/dL Glucose (74-99) mg/dL POC Glucose (mg/dL) 227 H (75-99) mg/dL Total Protein (6.3-8.2) g/dL Albumin (3.5-5.0) g/dL Assessment and Plan Plan: ASSESSMENT: -Liposarcoma, admitted for 4th round of chemotherapy -Anemia, secondary to chemotherapy -Thrombocytopenia, secondary to chemotherapy -History of diabetes mellitus, type II, insulin dependant -History of fibromyalgia -History of essential hypertension -History of osteoarthritis PLAN: -Continue with chemotherapy regimen per Dr. Mukherjee -GI prophylaxis: Pepcid 20 mg IV daily -DVT prophylaxis: Lovenox 40 mg daily -Continue Zofran for nausea -Monitor vital signs and address as appropriate -Monitor labs -Monitor capillary blood glucose. Patient brought her own insulin from home. The above impression and plan of care have been discussed and directed by signing physician. Bridget Mckeon, nurse practitioner, acting as scribe for signing physician.
[2017-04-25] MEDS: HYDROcodone/APAP 5-325MG 1 EACH TAB PO PRN (14:53)
[2017-04-25] MEDS: ONDANSETRON 16 MG in SODIUM CHLORIDE 0.9% 50 ML IVPB SCH (16:11)
[2017-04-25 17:22] LABS: Glucose,Whole Blood 210 mg/dL (75-99)
[2017-04-25] MEDS: SODIUM CHLORIDE 0.9% IV SCH ×4 (17:24→21:07)
[2017-04-25] MEDS: MESNA IV SCH ×2 (17:24→21:07)
[2017-04-25] MEDS: IFOSFAMIDE IV SCH (17:47)
--- NOTE | 2017-04-25 17:49 | P.PN ---
Subjective Principal diagnosis: Liposarcoma, admit for CIVI Pt seen today in follow up, denies fevers, oral irritation, nausea, cough, abd bloating, dysuria, diarrhea, she had a BM day before yesterday, no swelling, ambulating independently, denies any other physical c/o. Objective - Vital Signs Vital signs: Vital Signs Temp 98.0 F 04/25/17 07:00 Pulse 84 04/25/17 08:26 Resp 16 04/25/17 08:00 BP 117/63 04/25/17 07:00 Pulse Ox 98 04/25/17 07:00 Intake & Output 04/24/17 04/25/17 04/25/17 18:59 06:59 18:59 Intake Total 340 1490 1141 Balance 340 1490 1141 Weight 90 kg 90 kg Intake: IV 1490 800 [place] 1,000 mg In Sodium 290 Chloride 0.9% 50 ml @ 240 mls/hr IV Q24H MATTHEW Rx#: [id number] Sodium Chloride 0.9% 1, 1200 800 000 ml @ 100 mls/hr IV . Q10H MATTHEW Rx#:[id number] Intake, IV Titration 100 341 Amount DOXOrubicin HCL 50 mg In 341 Sodium Chloride 0.9% 1, 000 ml @ 42.708 mls/hr IV Q24H MATTHEW Rx#:[id number] Sodium Chloride 0.9% 1, 100 000 ml @ 100 mls/hr IV . Q10H MATTHEW Rx#:[id number] Oral 240 Other: Voiding Method Toilet Toilet # Voids 1 3 - Constitutional General appearance: Present: cooperative, no acute distress, obese - EENT Eyes: Present: anicteric sclerae, EOMI, normal appearance ENT: Present: normal oropharynx - Respiratory Respiratory: bilateral: CTA - Cardiovascular Rhythm: regular Heart sounds: normal: S1, S2 - Peripheral edema foot Peripheral Edema: bilateral: None - Gastrointestinal General gastrointestinal: Present: normal bowel sounds, soft. Absent: absent bowel sounds, decreased bowel sounds, distended, hepatomegaly, hyperactive bowel sounds, organomegaly, rigid, scaphoid, splenomegaly, tenderness, umbilical hernia, ventral hernia - Integumentary Integumentary: Present: normal - Neurologic Neurologic: Present: CNII-XII intact - Musculoskeletal Musculoskeletal: Present: strength equal bilaterally - Psychiatric Psychiatric: Present: A&O x's 3, appropriate affect, intact judgment & insight - Labs CBC & Chem 7: 04/24/17 12:30 04/25/17 06:35 Labs: Abnormal Lab Results - Last 24 Hours (Table) 04/24/17 04/25/17 04/25/17 Range/Units 20:02 06:35 07:06 Sodium 136 L (137-145) mmol/L Creatinine 0.50 L (0.52-1.04) mg/dL Glucose 221 H (74-99) mg/dL POC Glucose (mg/dL) 217 H 211 H (75-99) mg/dL Total Protein 5.4 L (6.3-8.2) g/dL Albumin 3.1 L (3.5-5.0) g/dL 04/25/17 04/25/17 Range/Units 11:04 17:08 Sodium (137-145) mmol/L Creatinine (0.52-1.04) mg/dL Glucose (74-99) mg/dL POC Glucose (mg/dL) 227 H 210 H (75-99) mg/dL Total Protein (6.3-8.2) g/dL Albumin (3.5-5.0) g/dL Assessment and Plan (1) Liposarcoma Narrative/Plan: Admitted for 4th cycle of chemotherapy, orders reviewed, supportive meds ordered , labs daily. Status: Acute (2) Bicytopenia Narrative/Plan: CBC in AM. Status: Acute (3) Asthma Status: Chronic (4) Hyperlipidemia Status: Chronic (5) Hypertension Status: Chronic (6) Insulin dependent diabetes mellitus Status: Chronic Plan: IM consulted for medical management GI/DVT prophylaxis Meds available PRN for constipation
[2017-04-25] MEDS: DOXORUBICIN HCL IV SCH (17:51)
[2017-04-25] MEDS: ALPRAZolam 0.25 MG TAB PO PRN (18:13)
[2017-04-25 20:35] LABS: Glucose,Whole Blood 115 mg/dL (75-99)
[2017-04-25] MEDS: FENOFIBRATE 160 MG TAB PO SCH (21:09)
[2017-04-25] MEDS: diphenhydrAMINE 25 MG CAP PO SCH (21:09)
[2017-04-25] MEDS: GABAPENTIN 300 MG CAP PO SCH (21:09)
[2017-04-25] MEDS: ATORVASTATIN 20 MG TAB PO SCH (21:09)
[2017-04-25] MEDS: MONTELUKAST 10 MG TAB PO SCH (21:09)
[2017-04-25] MEDS: LISINOPRIL 5 MG TAB PO SCH (21:10)
[2017-04-26] MEDS: MESNA IV SCH ×3 (01:07→22:22)
[2017-04-26] MEDS: SODIUM CHLORIDE 0.9% IV SCH ×5 (01:07→22:22)
[2017-04-26 06:41] LABS: Anisocytosis Moderate; Basophils # (A) 0.1 k/uL (0-0.2); Basophils % (A) 1 %; CH 30.2; CHCM 32.9; Eosinophils % (A) 0 %; HCT 29.8 % (34.0-46.0); HDW 3.29; HGB 9.4 gm/dL (11.4-16.0); Luc # (Auto) 0.06; Luc % (Auto) 1; Lymphocytes # (A) 0.6 k/uL (1.0-4.8); Lymphocytes % (A) 7 %; MCHC 31.3 g/dL (31.0-37.0); MCV 92.4 fL (80.0-100.0); Macrocytosis Slight; Mean Platelet Volume 7.7; Monocytes # (A) 0.9 k/uL (0-1.0); Monocytes % (A) 10 %; Neutrophils # (A) 7.2 k/uL (1.3-7.7); Neutrophils % (A) 81 %; RBC 3.23 m/uL (3.80-5.40); RDW 21.9 % (11.5-15.5); WBC 8.9 k/uL (3.8-10.6); WBC (Perox) 9.88
[2017-04-26 06:54] LABS: ALT 28 U/L (9-52); AST 16 U/L (14-36); Alkaline Phosphatase 69 U/L (38-126); Anion Gap 6 mmol/L; Blood Urea Nitrogen 11 mg/dL (7-17); Calcium 8.8 mg/dL (8.4-10.2); Carbon Dioxide 25 mmol/L (22-30); Chloride 113 mmol/L (98-107); Glucose 80 mg/dL (74-99); Non-African American GFR(MDRD) >60 (>60 ml/min/1.73 sqM); Potassium 3.9 mmol/L (3.5-5.1); Sodium 144 mmol/L (137-145); Total Bilirubin 0.2 mg/dL (0.2-1.3); Total Protein 5.2 g/dL (6.3-8.2)
[2017-04-26] MEDS: SODIUM CHLORIDE 0.9% 1,000 ML IV SCH ×2 (07:29→17:40)
[2017-04-26] MEDS: APIDRA INSULIN SQ SCH ×4 (07:30→22:29)
[2017-04-26 07:31] LABS: Glucose,Whole Blood 82 mg/dL (75-99)
[2017-04-26] MEDS: ONDANSETRON 4 MG/2 ML VIAL IVP PRN (07:31)
[2017-04-26] MEDS: TOUJEO INSULIN SQ SCH ×2 (07:31→22:29)
[2017-04-26] MEDS: ALPRAZolam 0.25 MG TAB PO PRN ×2 (08:15→18:11)
[2017-04-26] MEDS: HYDROcodone/APAP 5-325MG 1 EACH TAB PO PRN ×3 (08:15→19:58)
--- NOTE | 2017-04-26 09:46 | P.PN ---
Subjective Principal diagnosis: 56-year-old female who was admitted to the hospital on 04/24/[address] Ling/Kylah was consulted for medical management. 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 The patient states this is her fourth cycle. She believes she will need 6 cycles total. According to oncology, the patient will be evaluated at [facility] after the fourth cycle of chemotherapy for radiation or surgery of the residual disease that was found. The patient has a history of exploratory lap in December 2016 with excision of a pelvic mass, grade III that extended to the margins. The patient has been seeing Dr. Mukherjee for her chemotherapy treatment. The patient has brought in her own insulin from home which she may use. She states her blood sugars are harder to control in the hospital but patient is adjusting her insulin based on her glucose readings (patient uses her own sliding scale). 04-26-17 The patient states she is having a "bad day". She is very nonspecific in her complaints but states she is just not feeling well. She denies chest pain or shortness of breath. She states her appetite is decreased. She did eat a yogurt that she brought from home this morning for breakfast. She denies abdominal pain, constipation, or diarrhea. Her lab work was reviewed. Her hemoglobin is stable at 9.4. Her vital signs are stable. She is maintaining oxygen saturation greater than 92% on room air. She remains afebrile. Objective - Vital Signs Vital signs: Vital Signs Temp 97.9 F 04/26/17 07:00 Pulse 80 04/26/17 07:00 Resp 16 04/26/17 07:00 BP 105/69 04/26/17 07:00 Pulse Ox 98 04/26/17 07:00 Intake & Output 04/25/17 04/26/17 04/26/17 18:59 06:59 18:59 Intake Total 1141 3042 Balance 1141 3042 Weight 90 kg Intake: IV 800 1592 DOXOrubicin HCL 50 mg In 342 Sodium Chloride 0.9% 1, 000 ml @ 42.708 mls/hr IV Q24H MATTHEW Rx#:[id number] [place] 1,000 mg In Sodium 50 Chloride 0.9% 50 ml @ 240 mls/hr IV Q24H MATTHEW Rx#: [id number] Sodium Chloride 0.9% 1, 800 1200 000 ml @ 100 mls/hr IV . Q10H MATTHEW Rx#:[id number] Intake, IV Titration 341 500 Amount DOXOrubicin HCL 50 mg In 341 Sodium Chloride 0.9% 1, 000 ml @ 42.708 mls/hr IV Q24H MATTHEW Rx#:[id number] Ifosfamide 5,100 mg In 500 Sodium Chloride 0.9% 500 ml @ 200.667 mls/hr IV Q24H MATTHEW Rx#:[id number] Oral 950 Other: Voiding Method Toilet Toilet # Voids 3 2 - Exam GENERAL: Alert and oriented. Appears in no acute distress. Pleasant and cooperative. RESPIRATORY: Lungs clear bilaterally. No use of accessory muscles. Patient maintaining oxygen saturation greater than 92% on room air. CARDIOVASCULAR: Report to the right chest wall. S1 and S2 noted. No murmurs auscultated. No JVD noted. EXTREMITIES: No edema noted. Palpable pedal pulses +2. ABDOMEN: No distention noted. Abdomen soft and round. Normal active bowel sounds auscultated 4 quadrants. No pain or tenderness noted upon palpation. - Labs CBC & Chem 7: 04/26/17 06:32 04/26/17 06:32 Labs: Abnormal Lab Results - Last 24 Hours (Table) 04/25/17 04/25/17 04/25/17 Range/Units 11:04 17:08 20:32 RBC (3.80-5.40) m/uL Hgb (11.4-16.0) gm/dL Hct (34.0-46.0) % RDW (11.5-15.5) % Lymphocytes # (1.0-4.8) k/uL Chloride (98-107) mmol/L POC Glucose (mg/dL) 227 H 210 H 115 H (75-99) mg/dL Total Protein (6.3-8.2) g/dL Albumin (3.5-5.0) g/dL 04/26/17 04/26/17 Range/Units 06:32 06:32 RBC 3.23 L (3.80-5.40) m/uL Hgb 9.4 L (11.4-16.0) gm/dL Hct 29.8 L (34.0-46.0) % RDW 21.9 H (11.5-15.5) % Lymphocytes # 0.6 L (1.0-4.8) k/uL Chloride 113 H (98-107) mmol/L POC Glucose (mg/dL) (75-99) mg/dL Total Protein 5.2 L (6.3-8.2) g/dL Albumin 2.8 L (3.5-5.0) g/dL Assessment and Plan Plan: ASSESSMENT: -Liposarcoma, admitted for 4th round of chemotherapy -Anemia, secondary to chemotherapy -Thrombocytopenia, secondary to chemotherapy, improving -History of diabetes mellitus, type II, insulin dependant -History of fibromyalgia -History of essential hypertension -History of osteoarthritis PLAN: -Continue with chemotherapy regimen per Dr. Mukherjee -GI prophylaxis: Pepcid 20 mg IV daily -DVT prophylaxis: Lovenox 40 mg daily -Continue Zofran for nausea -Monitor vital signs and address as appropriate -Monitor labs -Monitor capillary blood glucose. Patient brought her own insulin from home and uses her own sliding scale. The above impression and plan of care have been discussed and directed by signing physician. Bridget Mckeon, nurse practitioner, acting as scribe for signing physician.
[2017-04-26] MEDS: metFORMIN 500 MG TAB PO SCH ×2 (09:47→17:39)
[2017-04-26] MEDS: ENOXAPARIN 40 MG/0.4 ML SYRINGE SQ SCH (10:07)
[2017-04-26] MEDS: DEXAMETHASONE SOD PHOSPHATE 10 MG/ML 1 ML VIAL IV SCH (10:07)
[2017-04-26] MEDS: diphenhydrAMINE 50 MG/ML 1 ML VIAL IVP PRN (10:08)
[2017-04-26] MEDS: FAMOTIDINE 20 MG/2 ML VIAL IVP SCH (10:08)
[2017-04-26] MEDS: LORATADINE 10 MG TAB PO SCH (10:09)
[2017-04-26] MEDS: MAG HYDROX/AL HYDROX/SIMETH 30 ML, LIDOCAINE VISCOUS 30 ML, diphenhydrAMINE ELIXIR 75 M... PO SCH ×12 (10:09→22:31)
[2017-04-26] MEDS: METOPROLOL TARTRATE 25 MG TAB PO SCH ×2 (10:09→22:30)
[2017-04-26] MEDS: SALT AND SODA MOUTHWASH 1,000 ML PO SCH ×4 (10:14→22:31)
[2017-04-26 11:04] LABS: Glucose,Whole Blood 93 mg/dL (75-99)
[2017-04-26 17:46] LABS: Glucose,Whole Blood 210 mg/dL (75-99)
[2017-04-26] MEDS: ONDANSETRON 16 MG in SODIUM CHLORIDE 0.9% 50 ML IVPB SCH (17:53)
[2017-04-26] MEDS: DOXORUBICIN HCL IV SCH (18:58)
[2017-04-26] MEDS: IFOSFAMIDE IV SCH (18:59)
[2017-04-26] MEDS: GABAPENTIN 300 MG CAP PO SCH (20:04)
[2017-04-26] MEDS: ATORVASTATIN 20 MG TAB PO SCH (20:04)
[2017-04-26] MEDS: diphenhydrAMINE 25 MG CAP PO SCH (20:04)
[2017-04-26] MEDS: MONTELUKAST 10 MG TAB PO SCH (20:04)
[2017-04-26] MEDS: FENOFIBRATE 160 MG TAB PO SCH (20:04)
[2017-04-26 20:21] LABS: Glucose,Whole Blood 172 mg/dL (75-99)
[2017-04-26] MEDS: LISINOPRIL 5 MG TAB PO SCH (22:30)
--- NOTE | 2017-04-26 23:44 | P.PN ---
Subjective Patient is on day #3 of cycle #4 of NORIS chemotherapy. She is complaining of increased fatigue, and nausea today as well as decrease in appetite. No fever, chills or overt vomiting. No obvious bleeding noted. Objective - Vital Signs Vital signs: Vital Signs Temp 97.6 F 04/26/17 22:30 Pulse 80 04/26/17 22:30 Resp 16 04/26/17 22:30 BP 115/73 04/26/17 22:30 Pulse Ox 99 04/26/17 22:30 Intake & Output 04/26/17 04/26/17 04/27/17 06:59 18:59 06:59 Intake Total 3042 1142 590 Balance 3042 1142 590 Intake: IV 1592 342 DOXOrubicin HCL 50 mg In 342 342 Sodium Chloride 0.9% 1, 000 ml @ 42.708 mls/hr IV Q24H MATTHEW Rx#:[id number] [place] 1,000 mg In Sodium 50 Chloride 0.9% 50 ml @ 240 mls/hr IV Q24H MATTHEW Rx#: [id number] Sodium Chloride 0.9% 1, 1200 000 ml @ 100 mls/hr IV . Q10H MATTHEW Rx#:[id number] Intake, IV Titration 500 800 Amount Ifosfamide 5,100 mg In 500 Sodium Chloride 0.9% 500 ml @ 200.667 mls/hr IV Q24H MATTHEW Rx#:[id number] Sodium Chloride 0.9% 1, 800 000 ml @ 100 mls/hr IV . Q10H MATTHEW Rx#:[id number] Oral 950 590 Other: Voiding Method Toilet Toilet # Voids 2 2 - Constitutional General appearance: Present: no acute distress - EENT Eyes: Present: EOMI, PERRLA ENT: Present: hearing grossly normal, normal oropharynx - Respiratory Respiratory: bilateral: CTA - Cardiovascular Rhythm: regular Heart sounds: normal: S1, S2 - Gastrointestinal General gastrointestinal: Present: normal bowel sounds, soft - Integumentary Integumentary Comment(s): mild Integumentary: Present: flushed - Neurologic Neurologic: Present: CNII-XII intact - Musculoskeletal Musculoskeletal: Present: generalized weakness, strength equal bilaterally - Psychiatric Psychiatric: Present: A&O x's 3, appropriate affect - Labs CBC & Chem 7: 04/26/17 06:32 04/26/17 06:32 Labs: Abnormal Lab Results - Last 24 Hours (Table) 04/26/17 04/26/17 04/26/17 Range/Units 06:32 06:32 17:38 RBC 3.23 L (3.80-5.40) m/uL Hgb 9.4 L (11.4-16.0) gm/dL Hct 29.8 L (34.0-46.0) % RDW 21.9 H (11.5-15.5) % Lymphocytes # 0.6 L (1.0-4.8) k/uL Chloride 113 H (98-107) mmol/L POC Glucose (mg/dL) 210 H (75-99) mg/dL Total Protein 5.2 L (6.3-8.2) g/dL Albumin 2.8 L (3.5-5.0) g/dL 04/26/17 Range/Units 20:20 RBC (3.80-5.40) m/uL Hgb (11.4-16.0) gm/dL Hct (34.0-46.0) % RDW (11.5-15.5) % Lymphocytes # (1.0-4.8) k/uL Chloride (98-107) mmol/L POC Glucose (mg/dL) 172 H (75-99) mg/dL Total Protein (6.3-8.2) g/dL Albumin (3.5-5.0) g/dL Assessment and Plan (1) Liposarcoma Narrative/Plan: The patient is on day 3 of cycle #4 of high-dose NORIS chemotherapy. She is complaining of somewhat more side effects today as noted. These are overall grade 2. physical exam, as well as labs are otherwise normal. Continue chemotherapy per protocol. Continue to monitor with clinical exams and labs which have been ordered Status: Acute (2) Anemia aplastic aregenerative Narrative/Plan: hemoglobin remained stable in a safe range. WBC and platelets are normal.. No need for supplementation today Status: Acute (3) Chemotherapy adverse reaction Narrative/Plan: patient has developed some flushing and itching. Benadryl will be added. Status: Acute
[2017-04-27] MEDS: SODIUM CHLORIDE 0.9% IV SCH ×3 (02:05→21:01)
[2017-04-27] MEDS: MESNA IV SCH ×2 (02:05→20:03)
[2017-04-27] MEDS: SODIUM CHLORIDE 0.9% 1,000 ML IV SCH ×2 (04:48→19:21)
[2017-04-27 07:31] LABS: Glucose,Whole Blood 75 mg/dL (75-99)
[2017-04-27 07:46] LABS: Anisocytosis Moderate; Basophils % (A) 0 %; CH 29.3; CHCM 31.7; Eosinophils % (A) 1 %; HCT 30.6 % (34.0-46.0); HDW 3.09; HGB 9.5 gm/dL (11.4-16.0); Hypochromasia Slight; Luc % (Auto) 2; Lymphocytes # (A) 0.6 k/uL (1.0-4.8); Lymphocytes % (A) 11 %; MCHC 31.2 g/dL (31.0-37.0); Macrocytosis Slight; Mean Platelet Volume 7.5; Monocytes # (A) 0.5 k/uL (0-1.0); Monocytes % (A) 9 %; Neutrophils # (A) 4.4 k/uL (1.3-7.7); Neutrophils % (A) 77 %; RBC 3.29 m/uL (3.80-5.40); RDW 20.5 % (11.5-15.5); WBC 5.7 k/uL (3.8-10.6); WBC (Perox) 5.81
[2017-04-27 07:54] LABS: ALT 36 U/L (9-52); AST 17 U/L (14-36); Alkaline Phosphatase 68 U/L (38-126); Anion Gap 8 mmol/L; Blood Urea Nitrogen 11 mg/dL (7-17); Calcium 8.7 mg/dL (8.4-10.2); Carbon Dioxide 23 mmol/L (22-30); Chloride 111 mmol/L (98-107); Glucose 74 mg/dL (74-99); Non-African American GFR(MDRD) >60 (>60 ml/min/1.73 sqM); Potassium 3.8 mmol/L (3.5-5.1); Sodium 142 mmol/L (137-145); Total Bilirubin 0.3 mg/dL (0.2-1.3); Total Protein 5.2 g/dL (6.3-8.2)
[2017-04-27] MEDS: APIDRA INSULIN SQ SCH ×4 (08:47→21:23)
[2017-04-27] MEDS: metFORMIN 500 MG TAB PO SCH ×2 (08:47→17:13)
[2017-04-27] MEDS: TOUJEO INSULIN SQ SCH ×2 (08:48→21:23)
[2017-04-27] MEDS: ENOXAPARIN 40 MG/0.4 ML SYRINGE SQ SCH (08:49)
[2017-04-27] MEDS: LORATADINE 10 MG TAB PO SCH (08:49)
[2017-04-27] MEDS: METOPROLOL TARTRATE 25 MG TAB PO SCH ×2 (08:50→21:06)
[2017-04-27] MEDS: SALT AND SODA MOUTHWASH 1,000 ML PO SCH ×4 (08:51→21:07)
[2017-04-27] MEDS: MAG HYDROX/AL HYDROX/SIMETH 30 ML, LIDOCAINE VISCOUS 30 ML, diphenhydrAMINE ELIXIR 75 M... PO SCH ×12 (08:51→21:07)
[2017-04-27] MEDS: HYDROcodone/APAP 5-325MG 1 EACH TAB PO PRN ×3 (08:55→19:15)
--- NOTE | 2017-04-27 11:38 | P.PN ---
Subjective Principal diagnosis: 56-year-old female who was admitted to the hospital on 04/24/[address] Ling/Kylah was consulted for medical management. 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 The patient states this is her fourth cycle. She believes she will need 6 cycles total. According to oncology, the patient will be evaluated at [facility] after the fourth cycle of chemotherapy for radiation or surgery of the residual disease that was found. The patient has a history of exploratory lap in December 2016 with excision of a pelvic mass, grade III that extended to the margins. The patient has been seeing Dr. Mukherjee for her chemotherapy treatment. The patient has brought in her own insulin from home which she may use. She states her blood sugars are harder to control in the hospital but patient is adjusting her insulin based on her glucose readings (patient uses her own sliding scale). 04-26-17 The patient states she is having a "bad day". She is very nonspecific in her complaints but states she is just not feeling well. She denies chest pain or shortness of breath. She states her appetite is decreased. She did eat a yogurt that she brought from home this morning for breakfast. She denies abdominal pain, constipation, or diarrhea. Her lab work was reviewed. Her hemoglobin is stable at 9.4. Her vital signs are stable. She is maintaining oxygen saturation greater than 92% on room air. She remains afebrile. 04-27-17 Patient seen and evaluated at bedside. She states she is not feeling well today. She complains of pain and generalized fatigue and weakness. She states the Benadryl that she is receiving has helped her itching and flushing alot and those symptoms have resolved. She states she had a little bit of chocolate milk this morning but has not had much of an appetite otherwise. Vital signs remain stable. Denies chest pain or pressure. Objective - Vital Signs Vital signs: Vital Signs Temp 98.1 F 04/27/17 07:00 Pulse 80 04/27/17 08:00 Resp 16 04/27/17 08:00 BP 113/71 04/27/17 07:00 Pulse Ox 97 04/27/17 07:00 Intake & Output 04/26/17 04/27/17 04/27/17 18:59 06:59 18:59 Intake Total 1142 1180 Balance 1142 1180 Intake: IV 342 DOXOrubicin HCL 50 mg In 342 Sodium Chloride 0.9% 1, 000 ml @ 42.708 mls/hr IV Q24H MATTHEW Rx#:[id number] Intake, IV Titration 800 Amount Sodium Chloride 0.9% 1, 800 000 ml @ 100 mls/hr IV . Q10H MATTHEW Rx#:[id number] Oral 1180 Other: Voiding Method Toilet Toilet Toilet # Voids 3 - Exam GENERAL: Alert and oriented. Appears in no acute distress. Pleasant and cooperative. RESPIRATORY: Lungs clear bilaterally. No use of accessory muscles. Patient maintaining oxygen saturation greater than 92% on room air. CARDIOVASCULAR: Report to the right chest wall. S1 and S2 noted. No murmurs auscultated. No JVD noted. EXTREMITIES: No edema noted. Palpable pedal pulses +2. ABDOMEN: No distention noted. Abdomen soft and round. Normal active bowel sounds auscultated 4 quadrants. No pain or tenderness noted upon palpation. - Labs CBC & Chem 7: 04/27/17 07:29 04/27/17 07:29 Labs: Abnormal Lab Results - Last 24 Hours (Table) 04/26/17 04/26/17 04/27/17 Range/Units 17:38 20:20 07:29 RBC 3.29 L (3.80-5.40) m/uL Hgb 9.5 L (11.4-16.0) gm/dL Hct 30.6 L (34.0-46.0) % RDW 20.5 H (11.5-15.5) % Lymphocytes # 0.6 L (1.0-4.8) k/uL Chloride (98-107) mmol/L POC Glucose (mg/dL) 210 H 172 H (75-99) mg/dL Total Protein (6.3-8.2) g/dL Albumin (3.5-5.0) g/dL 04/27/17 Range/Units 07:29 RBC (3.80-5.40) m/uL Hgb (11.4-16.0) gm/dL Hct (34.0-46.0) % RDW (11.5-15.5) % Lymphocytes # (1.0-4.8) k/uL Chloride 111 H (98-107) mmol/L POC Glucose (mg/dL) (75-99) mg/dL Total Protein 5.2 L (6.3-8.2) g/dL Albumin 2.9 L (3.5-5.0) g/dL Assessment and Plan Plan: ASSESSMENT: -Liposarcoma, admitted for 4th round of chemotherapy -Anemia, secondary to chemotherapy -Thrombocytopenia, secondary to chemotherapy, improving -History of diabetes mellitus, type II, insulin dependant -History of fibromyalgia -History of essential hypertension -History of osteoarthritis PLAN: -Continue with chemotherapy regimen per Dr. Mkuherjee -GI prophylaxis: Pepcid 20 mg IV daily -DVT prophylaxis: Lovenox 40 mg daily -Continue Zofran for nausea -Encourage oral intake as tolerated -Benadryl for itching per oncology -Monitor vital signs and address as appropriate -Monitor labs -Monitor capillary blood glucose. Patient brought her own insulin from home and uses her own sliding scale. The above impression and plan of care have been discussed and directed by signing physician. Bridget Mckeon, nurse practitioner, acting as scribe for signing physician.
[2017-04-27 11:42] LABS: Glucose,Whole Blood 95 mg/dL (75-99)
[2017-04-27] MEDS: ALPRAZolam 0.25 MG TAB PO PRN ×2 (12:32→19:16)
[2017-04-27] MEDS: ONDANSETRON 4 MG/2 ML VIAL IVP PRN (12:32)
[2017-04-27] MEDS: diphenhydrAMINE 50 MG/ML 1 ML VIAL IVP PRN (16:20)
--- NOTE | 2017-04-27 16:23 | P.PN ---
Subjective Principal diagnosis: Liposarcoma, admit for CIVI Pt seen today in follow up, patient is not feeling very well this. She didn't sleep very well last night, denies any fevers, oral irritation, slightly nauseated this a.m., no vomiting, diarrhea or constipation, ambulating frequently, appetite is poor. Objective - Vital Signs Vital signs: Vital Signs Temp 98.5 F 04/27/17 15:00 Pulse 86 04/27/17 15:00 Resp 16 04/27/17 15:00 BP 100/54 04/27/17 15:00 Pulse Ox 96 04/27/17 15:00 Intake & Output 04/26/17 04/27/17 04/27/17 18:59 06:59 18:59 Intake Total 1142 1180 Balance 1142 1180 Intake: IV 342 DOXOrubicin HCL 50 mg In 342 Sodium Chloride 0.9% 1, 000 ml @ 42.708 mls/hr IV Q24H MATTHEW Rx#:[id number] Intake, IV Titration 800 Amount Sodium Chloride 0.9% 1, 800 000 ml @ 100 mls/hr IV . Q10H MATTHEW Rx#:[id number] Oral 1180 Other: Voiding Method Toilet Toilet Toilet # Voids 3 1 - Constitutional Constitutional Comment(s): pt is warm to touch, skin is dry, not clammy General appearance: Present: cooperative, no acute distress - EENT Eyes: Present: anicteric sclerae ENT: Present: hearing grossly normal, normal oropharynx - Respiratory Respiratory: bilateral: CTA - Cardiovascular Rhythm: regular Heart sounds: normal: S1, S2 - Peripheral edema foot Peripheral Edema: bilateral: None - Gastrointestinal General gastrointestinal: Present: normal bowel sounds, soft - Neurologic Neurologic: Present: CNII-XII intact - Musculoskeletal Musculoskeletal: Present: strength equal bilaterally - Psychiatric Psychiatric: Present: A&O x's 3, appropriate affect, intact judgment & insight - Labs CBC & Chem 7: 04/27/17 07:29 04/27/17 07:29 Labs: Abnormal Lab Results - Last 24 Hours (Table) 04/26/17 04/26/17 04/27/17 Range/Units 17:38 20:20 07:29 RBC 3.29 L (3.80-5.40) m/uL Hgb 9.5 L (11.4-16.0) gm/dL Hct 30.6 L (34.0-46.0) % RDW 20.5 H (11.5-15.5) % Lymphocytes # 0.6 L (1.0-4.8) k/uL Chloride (98-107) mmol/L POC Glucose (mg/dL) 210 H 172 H (75-99) mg/dL Total Protein (6.3-8.2) g/dL Albumin (3.5-5.0) g/dL 04/27/17 Range/Units 07:29 RBC (3.80-5.40) m/uL Hgb (11.4-16.0) gm/dL Hct (34.0-46.0) % RDW (11.5-15.5) % Lymphocytes # (1.0-4.8) k/uL Chloride 111 H (98-107) mmol/L POC Glucose (mg/dL) (75-99) mg/dL Total Protein 5.2 L (6.3-8.2) g/dL Albumin 2.9 L (3.5-5.0) g/dL Assessment and Plan (1) Liposarcoma Narrative/Plan: Admitted for 4th cycle, orders reviewed, supportive meds ordered, labs daily. Status: Acute (2) Bicytopenia Narrative/Plan: Only anemia today, not requiring transfusion Status: Acute (3) Asthma Status: Chronic (4) Hyperlipidemia Status: Chronic (5) Hypertension Status: Chronic (6) Insulin dependent diabetes mellitus Status: Chronic Plan: IM consulted for medical management GI/DVT prophylaxis
[2017-04-27 16:59] LABS: Glucose,Whole Blood 112 mg/dL (75-99)
[2017-04-27] MEDS: ONDANSETRON 16 MG in SODIUM CHLORIDE 0.9% 50 ML IVPB SCH (20:03)
[2017-04-27] MEDS: DEXAMETHASONE SOD PHOSPHATE 10 MG/ML 1 ML VIAL IV SCH (20:04)
[2017-04-27] MEDS: FAMOTIDINE 20 MG/2 ML VIAL IVP SCH (20:04)
[2017-04-27 20:33] LABS: Glucose,Whole Blood 83 mg/dL (75-99)
[2017-04-27] MEDS: IFOSFAMIDE IV SCH (21:01)
[2017-04-27] MEDS: MONTELUKAST 10 MG TAB PO SCH (21:06)
[2017-04-27] MEDS: GABAPENTIN 300 MG CAP PO SCH (21:06)
[2017-04-27] MEDS: FENOFIBRATE 160 MG TAB PO SCH (21:06)
[2017-04-27] MEDS: ATORVASTATIN 20 MG TAB PO SCH (21:06)
[2017-04-27] MEDS: diphenhydrAMINE 25 MG CAP PO SCH (21:06)
[2017-04-27] MEDS: LISINOPRIL 5 MG TAB PO SCH (21:07)
[2017-04-28] MEDS: MESNA IV SCH ×2 (00:25→04:29)
[2017-04-28] MEDS: SODIUM CHLORIDE 0.9% IV SCH ×2 (00:25→04:29)
[2017-04-28] MEDS: HYDROcodone/APAP 5-325MG 1 EACH TAB PO PRN ×2 (03:34→08:53)
[2017-04-28] MEDS: ALPRAZolam 0.25 MG TAB PO PRN ×2 (03:34→08:53)
[2017-04-28] MEDS: SODIUM CHLORIDE 0.9% 1,000 ML IV SCH ×2 (03:37→13:37)
[2017-04-28 05:59] LABS: Anisocytosis Moderate; Basophils % (A) 0 %; Eosinophils % (A) 0 %; HCT 30.4 % (34.0-46.0); HGB 9.8 gm/dL (11.4-16.0); Luc # (Auto) 0.02; Luc % (Auto) 0; Lymphocytes # (A) 0.1 k/uL (1.0-4.8); Lymphocytes % (A) 2 %; MCH 29.5 pg (25.0-35.0); MCHC 32.1 g/dL (31.0-37.0); MCV 91.7 fL (80.0-100.0); Macrocytosis Slight; Mean Platelet Volume 7.4; Monocytes # (A) 0.2 k/uL (0-1.0); Monocytes % (A) 3 %; Neutrophils # (A) 5.8 k/uL (1.3-7.7); Neutrophils % (A) 94 %; RBC 3.32 m/uL (3.80-5.40); RDW 20.4 % (11.5-15.5); WBC 6.2 k/uL (3.8-10.6); WBC (Perox) 6.73
[2017-04-28 06:16] LABS: Carbon Dioxide 21 mmol/L (22-30); Chloride 112 mmol/L (98-107); Glucose 136 mg/dL (74-99); Potassium 4.5 mmol/L (3.5-5.1); Sodium 138 mmol/L (137-145)
[2017-04-28 06:17] LABS: ALT 40 U/L (9-52); AST 27 U/L (14-36); Alkaline Phosphatase 63 U/L (38-126); Anion Gap 5 mmol/L; Blood Urea Nitrogen 12 mg/dL (7-17); Calcium 8.7 mg/dL (8.4-10.2); Non-African American GFR(MDRD) >60 (>60 ml/min/1.73 sqM); Total Bilirubin 0.4 mg/dL (0.2-1.3); Total Protein 5.4 g/dL (6.3-8.2)
[2017-04-28 06:58] LABS: Glucose,Whole Blood 124 mg/dL (75-99)
[2017-04-28 07:17] VITALS: BP 110/61; PULSE 70; RESP 16; TEMP 98
[2017-04-28] MEDS: APIDRA INSULIN SQ SCH ×2 (08:47→12:56)
[2017-04-28] MEDS: TOUJEO INSULIN SQ SCH (08:47)
[2017-04-28] MEDS: metFORMIN 500 MG TAB PO SCH (08:47)
[2017-04-28] MEDS: SALT AND SODA MOUTHWASH 1,000 ML PO SCH (08:48)
[2017-04-28] MEDS: MAG HYDROX/AL HYDROX/SIMETH 30 ML, LIDOCAINE VISCOUS 30 ML, diphenhydrAMINE ELIXIR 75 M... PO SCH ×4 (08:48)
[2017-04-28] MEDS: ENOXAPARIN 40 MG/0.4 ML SYRINGE SQ SCH (08:48)
[2017-04-28] MEDS: METOPROLOL TARTRATE 25 MG TAB PO SCH (08:49)
[2017-04-28] MEDS: LORATADINE 10 MG TAB PO SCH (08:49)
[2017-04-28 10:49] LABS: Appearance,Urine Clear (Clear); Bilirubin,Urine Negative (Negative); Glucose,Urine (UA) Negative (Negative); Ketones,Urine 1+ (Negative); Leukocyte Esterase,Urine Small (Negative); Mucus,Urine Rare /hpf; Nitrite,Urine Negative (Negative); Particle Count 1355; Protein,Urine 1+ (Negative); Specific Gravity,Urine 1.011 (1.001-1.035); Squamous Epithelial Cell,Urine <1 /hpf (0-4); UA Billing (MACRO vs. MICRO) MICRO; Urobilinogen,Urine <2.0 mg/dL (<2.0); WBC,Urine 30 /hpf (0-5)
--- NOTE | 2017-04-28 11:21 | P.DS ---
Providers Date of admission: 04/24/17 08:39 Expected date of discharge: 04/28/17 Attending physician: Pal Mukherjee Consults: 04/24/17 09:06 Consult Physician Routine Consulting Provider: Bay Montero Jr Consult Reason/Comments: Medical Management Do you want consulting provider notified?: Yes Primary care physician: Stated None - Discharge Diagnosis(es) (1) Liposarcoma CIVI chemotherapy, 4th cycle completed Current Visit: Yes Status: Acute Priority: High (2) Bicytopenia Secondary to chemotherapy, stable, no interventions required while inpatient Current Visit: Yes Status: Acute Priority: Medium (3) Asthma Current Visit: No Status: Chronic Priority: Medium (4) Hyperlipidemia Current Visit: No Status: Chronic Priority: Medium (5) Hypertension Current Visit: No Status: Chronic Priority: Medium (6) Insulin dependent diabetes mellitus Current Visit: Yes Status: Chronic Priority: Medium (7) Dysuria Could be cystitis from ifosfamide, UA requested, results suspicious, abx ordered and sent to pt pharmacy. Pt encouraged to drink fluids, report fevers Current Visit: Yes Status: Acute Priority: High (8) Constipation Pt has fiber that she takes at home that she prefers to use, she has had small BMs while here, denies concern and will treat. Current Visit: Yes Status: Chronic Priority: Medium Hospital Course: Pt admitted for cycle #4 of adjuvant AIM protocol for liposarcoma. Pt tolerated treatment well, labs acceptable ranges, no fevers, vomiting, changes in respiratory status, pt has some sensitivity at the end of urination today, denies gross hematuria, she has had small hard stools, she wants to take her fiber at home. She remianed ambulatory, she admits to fatigue and being tired buut otherwise feels well enough to go home. Pt has completed treatment. Pertinent Studies: none Procedures: none Patient Condition at Discharge: Stable Plan - Discharge Summary New Discharge Prescriptions: New Ciprofloxacin HCl [Cipro] 500 mg PO Q12HR #14 tablet No Action Insulin Glulisine [Apidra] See Protocol SQ AC-TID Insulin Glargine,Hum.rec.anlog [Toujeo Solostar] 20 units SQ HS Insulin Glargine,Hum.rec.anlog [Toujeo Solostar] 80 units SQ QAM metFORMIN HCL ER [Glucophage Xr] 500 mg PO BID Enalapril [Vasotec] 2.5 mg PO HS ALPRAZolam [Xanax] 0.25 mg PO Q6H PRN PRN Reason: Anxiety/Insomnia Albuterol Sulfate [Proair Hfa] 2 puff INHALATION RT-Q6H PRN PRN Reason: Shortness Of Breath Fenofibrate [Lofibra] 160 mg PO HS Montelukast [Singulair] 10 mg PO HS Famotidine [Pepcid] 20 mg PO HS PRN PRN Reason: Indigestion Atorvastatin [Lipitor] 20 mg PO HS Ergocalciferol [Vitamin D2 (DRISDOL)] 50,000 unit PO TU Loratadine [Claritin] 10 mg PO QAM Metoprolol Tartrate [Lopressor] 25 mg PO BID Ondansetron Odt [Zofran ODT] 4 mg PO Q8HR PRN PRN Reason: Nausea And Vomiting HYDROcodone/APAP 5-325MG [[place] 5-325] 1 tab PO Q4HR PRN #60 tab PRN Reason: Pain Loperamide [Imodium] 2 mg PO DAILY PRN PRN Reason: Diarrhea Gabapentin 600 mg PO HS Insulin Glulisine [Apidra Solostar] See Protocol SQ HS Discharge Medication List ALPRAZolam [Xanax] 0.25 mg PO Q6H PRN 12/31/16 [History] Albuterol Sulfate [Proair Hfa] 2 puff INHALATION RT-Q6H PRN 12/31/16 [History] Atorvastatin [Lipitor] 20 mg PO HS 12/31/16 [History] Enalapril [Vasotec] 2.5 mg PO HS 12/31/16 [History] Ergocalciferol [Vitamin D2 (DRISDOL)] 50,000 unit PO TU 12/31/16 [History] Famotidine [Pepcid] 20 mg PO HS PRN 12/31/16 [History] Fenofibrate [Lofibra] 160 mg PO HS 12/31/16 [History] Insulin Glargine,Hum.rec.anlog [Toujeo Solostar] 20 units SQ HS 12/31/16 [ History] Insulin Glargine,Hum.rec.anlog [Toujeo Solostar] 80 units SQ QAM 12/31/16 [ History] Insulin Glulisine [Apidra] See Protocol SQ AC-TID 12/31/16 [History] Loratadine [Claritin] 10 mg PO QAM 12/31/16 [History] Metoprolol Tartrate [Lopressor] 25 mg PO BID 12/31/16 [History] Montelukast [Singulair] 10 mg PO HS 12/31/16 [History] metFORMIN HCL ER [Glucophage Xr] 500 mg PO BID 12/31/16 [History] Ondansetron Odt [Zofran ODT] 4 mg PO Q8HR PRN 02/07/17 [History] HYDROcodone/APAP 5-325MG [[place] 5-325] 1 tab PO Q4HR PRN #60 tab 02/24/17 [Rx] Loperamide [Imodium] 2 mg PO DAILY PRN 03/13/17 [History] Gabapentin 600 mg PO HS 04/04/17 [History] Insulin Glulisine [Apidra Solostar] See Protocol SQ HS 04/04/17 [History] Ciprofloxacin HCl [Cipro] 500 mg PO Q12HR #14 tablet 04/28/17 [Rx] Follow up Appointment(s)/Referral(s): Pal Mukherjee MD [STAFF PHYSICIAN] - 05/01/17 2:30 pm Activity/Diet/Wound Care/Special Instructions: Activity as tolerated Diet as tolerated-diabetic, liberal fluid intake Antibiotic ordered for suspicious UA, liberal fluids, report fever or progressive urinary symptoms (urgency, burning, frequency) or gross hematuria Discharge Disposition: HOME SELF-CARE Pending Studies Pending Results: UA reviewed
[2017-04-28 11:59] LABS: Glucose,Whole Blood 103 mg/dL (75-99)
== END 2017-04-28 14:36 | disposition home or self-care (01) | DRG 848 ==
LOC: 5ONC 08:39
PROVIDERS: ADMIT Internal Medicine Hematology & Oncology; ATTEND Internal Medicine Hematology & Oncology
DX: Z51.11 Encounter for antineoplastic chemotherapy (principal); D69.59 Other secondary thrombocytopenia; C76.3 Malignant neoplasm of pelvis; G62.9 Polyneuropathy, unspecified; I10 Essential (primary) hypertension; M79.7 Fibromyalgia; M17.0 Bilateral primary osteoarthritis of knee; E78.5 Hyperlipidemia, unspecified; J45.909 Unspecified asthma, uncomplicated; E11.9 Type 2 diabetes mellitus without complications; M50.30 Other cervical disc degeneration, unspecified cervical region; M51.35 Other intervertebral disc degeneration, thoracolumbar region; K59.00 Constipation, unspecified; D64.81 Anemia due to antineoplastic chemotherapy; K21.9 Gastro-esophageal reflux disease without esophagitis; T45.1X5A Adverse effect of antineoplastic and immunosuppressive drugs, initial encounter; Z79.4 Long term (current) use of insulin; Z79.899 Other long term (current) drug therapy; Z88.0 Allergy status to penicillin; Z90.710 Acquired absence of both cervix and uterus; Z88.2 Allergy status to sulfonamides; Z91.02 Food additives allergy status
CPT/HCPCS: 80053; 81001; 85025; 94640

== ENCOUNTER → 2017-05-08 | Outpatient (CLI) | payer MEDICAID ==
--- NOTE | 2017-05-08 16:48 | US ---
EXAMINATION TYPE: US venous doppler duplex LE LT DATE OF EXAM: 05/08/2017 3:36 PM COMPARISON: NONE CLINICAL HISTORY: 56-year-old female R22.42 Swelling. Foot swelling, no history of DVT. SIDE PERFORMED: Left TECHNIQUE: The lower extremity deep venous system is examined utilizing real time linear array sonog ryan with graded compression, doppler sonography and color-flow sonography. FINDINGS: VESSELS IMAGED: External Iliac Vein (EIV) Common Femoral Vein Deep Femoral Vein Greater Saphenous Vein * Femoral Vein Popliteal Vein Small Saphenous Vein * Proximal Calf Veins Posterior tibial veins (* superficial vessels) Left Leg: Appears negative for DVT results relayed to Chiara at office @340 IMPRESSION: No evidence for DVT within the left lower extremity.
== END | disposition home or self-care (01) ==
LOC: RADUSWWP 14:56
PROVIDERS: ATTEND Internal Medicine Hematology & Oncology
DX: R22.42 Localized swelling, mass and lump, left lower limb (principal)

== ENCOUNTER → 2017-09-19 | Outpatient (CLI) | payer MEDICAID ==
--- NOTE | 2017-09-19 13:28 | NM ---
EXAMINATION TYPE: NM renal flow and function DATE OF EXAM: 09/19/2017 COMPARISON: CT chest abdomen pelvis 04/17/2017 HISTORY: Sarcoma Following administration of 10.1 mCi Tc99m MAG3. Immediate images post injection. FINDINGS: Posterior imaging obtained following intravenous pharmaceutical at the level of the kidneys ureters or bladder. Left: 52.2 %. Right: 47.8 %. Max renal flow left: 4 minutes. Max renal flow right: 47.8 minutes. Satisfactory accumulation of radiotracer within both renal collecting systems. T 1/2 left: 12.3 minutes minutes. T 1/2 right: 9.6 minutes minutes. FINDINGS: Time activity curves were generated. Symmetric radio pharmaceutical uptake and excretion initially. Time activity curves show some mild delay to peak counts per second within the left kidney with some slight increase counts per second in the left as compared to the right kidney. IMPRESSION: There is not appreciable hydronephrosis at this time. Additional findings above. MTDD
== END | disposition home or self-care (01) ==
LOC: RADNMMAIN 08:52
PROVIDERS: ATTEND Surgery
DX: C49.9 Malignant neoplasm of connective and soft tissue, unspecified (principal); N28.9 Disorder of kidney and ureter, unspecified
CPT/HCPCS: 78707; A9562

== ENCOUNTER → 2017-10-02 | Outpatient (CLI) | payer MEDICAID ==
[2017-10-02 17:04] LABS: HCT 37.9 % (34.0-46.0); HGB 12.7 gm/dL (11.4-16.0); MCH 28.1 pg (25.0-35.0); MCHC 33.5 g/dL (31.0-37.0); MCV 83.8 fL (80.0-100.0); Mean Platelet Volume 7.3; Platelet Count 162 k/uL (150-450); RBC 4.52 m/uL (3.80-5.40); RDW 14.6 % (11.5-15.5); WBC 5.1 k/uL (3.8-10.6)
[2017-10-02 17:07] LABS: INR 0.9 (<1.2); Prothrombin Time 9.5 sec (9.0-12.0)
[2017-10-02 17:19] LABS: ALT 88 U/L (9-52); AST 78 U/L (14-36); Albumin 4.1 g/dL (3.5-5.0); Alkaline Phosphatase 124 U/L (38-126); Anion Gap 10 mmol/L; Blood Urea Nitrogen 19 mg/dL (7-17); Calcium 9.9 mg/dL (8.4-10.2); Carbon Dioxide 29 mmol/L (22-30); Chloride 100 mmol/L (98-107); Glucose 234 mg/dL (74-99); Potassium 4.5 mmol/L (3.5-5.1); Sodium 139 mmol/L (137-145); Total Bilirubin 0.8 mg/dL (0.2-1.3); Total Protein 6.8 g/dL (6.3-8.2)
[2017-10-02 17:20] LABS: Partial Thromboplastin Time 21.1 sec (22.0-30.0)
[2017-10-03 04:56] LABS: Hemoglobin A1C 10.3 % (4.0-6.0)
== END | disposition home or self-care (01) ==
LOC: LABWHC1 16:22
PROVIDERS: ATTEND Physician Assistant
DX: C49.9 Malignant neoplasm of connective and soft tissue, unspecified (principal)
CPT/HCPCS: 36415; 80053; 83036; 85027; 85610; 85730

== ENCOUNTER 2017-10-23 11:26 | Emergency (ER) | payer MEDICAID ==
[2017-10-23 11:43] VITALS: RESP 18
[2017-10-23] MEDS ORDERED: MORPHINE SULFATE/PF 10MG/10ML VL IV STA (12:05)
[2017-10-23] MEDS ORDERED: SODIUM CHLORIDE 0.9% 500 ML IV STA (12:05)
[2017-10-23] MEDS ORDERED: RX INFO: IV CONTRAST WAS GIVEN 1 EACH MISC MISCELLANE PRN (12:05)
[2017-10-23] MEDS ORDERED: ONDANSETRON 4 MG/2 ML VIAL IVP STA (12:05)
[2017-10-23 12:40] LABS: Basophils % (A) 1 %; Eosinophils # (A) 0.3 k/uL (0-0.7); Eosinophils % (A) 8 %; HCT 28.8 % (34.0-46.0); Hypochromasia Slight; Lymphocytes # (A) 0.3 k/uL (1.0-4.8); Lymphocytes % (A) 7 %; MCH 28.9 pg (25.0-35.0); MCHC 34.1 g/dL (31.0-37.0); MCV 84.8 fL (80.0-100.0); Mean Platelet Volume 7.5; Monocytes # (A) 0.2 k/uL (0-1.0); Monocytes % (A) 6 %; Neutrophils % (A) 77 %; Platelet Count 204 k/uL (150-450); Poikilocytosis Moderate; RDW 14.2 % (11.5-15.5); WBC 3.9 k/uL (3.8-10.6)
--- NOTE | 2017-10-23 12:45 | ED ---
Abdominal Pain HPI - General Chief Complaint: Abdominal Pain Stated Complaint: Poss Blood Clot Time Seen by Provider: 10/23/17 11:46 Source: patient, family, RN notes reviewed Mode of arrival: ambulatory Limitations: no limitations - History of Present Illness Initial Comments: This is a 57-year-old female presents emergency Department with chief complaint of left leg pain, abdominal pain. 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 This is the second time a tumor was removed. Patient states his surgeon is extensive last about 12 hours in which she has had her colon, rectum removed, ureter, tumor. They were told the margins were clear. Patient has had prior chemotherapy and radiation therapy. Patient reported night sweats last night and fever yesterday. Patient does admit to some nausea no vomiting. She currently is on oxycodone for pain control. She did state that she had 3 ONOFRE drained which have been removed. She has surgical site at her right thumb and midabdominal with no drainage. Patient denies chest pain or shortness breath. She has pain that radiates from her left leg down. She does admit to occasional paresthesia. Patient has current Martel in with no acute changes the urine color or amount of sediment. Patient did call surgeon who wanted him to go to their [facility] to be evaluated though they state that they live close and opted to come here first. - Related Data Home Medications Medication Instructions Recorded Confirmed ALPRAZolam [Xanax] 0.25 mg PO DAILY PRN 12/31/16 10/23/17 Albuterol Sulfate [Proair Hfa] 2 puff INHALATION RT-Q6H PRN 12/31/16 10/23/17 Atorvastatin [Lipitor] 20 mg PO HS 12/31/16 10/23/17 Ergocalciferol [Vitamin D2 50,000 unit PO TU 12/31/16 10/23/17 (DRISDOL)] Famotidine [Pepcid] 20 mg PO DAILY 12/31/16 10/23/17 Fenofibrate [Lofibra] 160 mg PO DAILY 12/31/16 10/23/17 Loratadine [Claritin] 10 mg PO QAM 12/31/16 10/23/17 Montelukast [Singulair] 10 mg PO DAILY 12/31/16 10/23/17 metFORMIN HCL ER [Glucophage Xr] 500 mg PO DIRECTED 12/31/16 10/23/17 Gabapentin 600 mg PO HS 04/04/17 10/23/17 Docusate [Colace] 100 mg PO DAILY 10/23/17 10/23/17 Enoxaparin [Lovenox] 40 mg SQ DAILY 10/23/17 10/23/17 Ibuprofen [Motrin Ib] 200 mg PO Q6H PRN 10/23/17 10/23/17 Multivitamins, Thera [Multivitamin 1 tab PO DAILY 10/23/17 10/23/17 (formulary)] Ondansetron HCl [Zofran] 4 mg PO QID PRN 10/23/17 10/23/17 Wheat Dextrin [Benefiber] 1 pack PO DAILY 10/23/17 10/23/17 diphenhydrAMINE [Benadryl] 25 mg PO QID PRN 10/23/17 10/23/17 oxyCODONE HCL [Oxyir] 5 - 10 mg PO TID PRN 10/23/17 10/23/17 Allergies Allergy/AdvReac Type Severity Reaction Status Date / Time Penicillins Allergy Dyspnea/Rolando Verified 10/23/17 11:58 h Sulfa (Sulfonamide Allergy Unknown Verified 10/23/17 11:58 Antibiotics) Childhood artificial sweetner Allergy Severe Rash/Hives Uncoded 10/23/17 11:43 Review of Systems ROS Statement: Those systems with pertinent positive or pertinent negative responses have been documented in the HPI. ROS Other: All systems not noted in ROS Statement are negative. Past Medical History Past Medical History: Asthma, Cancer, Diabetes Mellitus, Fibromyalgia, GERD/ Reflux, Hyperlipidemia, Hypertension, Osteoarthritis (OA), Renal Disease Additional Past Medical History / Comment(s): Liposarcoma 12/31/16 with pelvic mass removal, IDDM type II, L elbow fracture-surgery/bone removal, arthritis bilateral knees/shoulders/L elbow, DDD- cervical spine and upper back, lower spinal stenosis, bilateral tinnitis, neuropathy chin and arms at times. History of Any Multi-Drug Resistant Organisms: None Reported Past Surgical History: Adenoidectomy, Appendectomy, Bowel Resection, Section, Hysterectomy, Orthopedic Surgery, Tonsillectomy Additional Past Surgical History / Comment(s): Exploratory lap with pelvic mass removal, port placement, kidney stent/removed, D&C, right lateral salpingo- oophorectomy, colonoscopy, umbilical hernia repair, L knee arthroscopy, L elbow implant then bone removal. Past Anesthesia/Blood Transfusion Reactions: Postoperative Nausea & Vomiting ( PONV) Past Psychological History: Anxiety Smoking Status: Never smoker - Past Family History Mother Family Medical History: Cancer Additional Family Medical History / Comment(s): eye, heart disease Father Additional Family Medical History / Comment(s): ALS, . Sister(s) Additional Family Medical History / Comment(s): ALS - General Exam Limitations: no limitations General appearance: alert, in no apparent distress Head exam: Present: atraumatic, normocephalic, normal inspection Neck exam: Present: normal inspection. Absent: tenderness, meningismus, lymphadenopathy Respiratory exam: Present: normal lung sounds bilaterally. Absent: respiratory distress, wheezes, rales, rhonchi, stridor Cardiovascular Exam: Present: regular rate, normal rhythm, normal heart sounds. Absent: systolic murmur, diastolic murmur, rubs, gallop, clicks GI/Abdominal exam: Present: soft, tenderness, normal bowel sounds, other ( Colostomy noted, midline incision with evonne no erythema no drainage). Absent : distended, guarding, rebound, rigid Rectal exam: Absent: normal inspection (Surgical site) Extremities exam: Present: other (Lower extremity pedal pulses equal bilaterally equal color equal warmth) Back exam: Absent: CVA tenderness (R), CVA tenderness (L) Skin exam: Present: warm, dry, intact, normal color. Absent: rash Course Vital Signs 10/23/17 10/23/17 10/23/17 11:37 13:30 14:31 Temperature 98.9 F 100.4 F H Pulse Rate 95 101 H 102 H Respiratory 18 18 18 Rate Blood Pressure 121/64 117/69 112/63 O2 Sat by Pulse 95 96 96 Oximetry Medical Decision Making - Medical Decision Making 57-year-old female presented from for abdominal pain, left flank pain. Patient' s left leg pain is more consistent with sciatic type symptoms. Patient does have an inner abdominal seroma versus abscess approximate 7 cm. Patient also has noted urinary check infection probable early stent infection. Case is discussed with her surgeon Dr. Reese recommends patient be transferred to [facility] where her surgery was performed. I did discuss this with Dr. Peoples at [facility] emergency department in which the patient will be transferred. Patient will receive cefepime, vancomycin. Patient has received 1 L of fluids in emergency department. Patient was given acetaminophen for her fever. Patient was also given analgesics - Lab Data Result diagrams: 10/23/17 12:30 10/23/17 12:30 Lab Results 10/23/17 10/23/17 10/23/17 Range/Units 12:30 12:30 12:30 WBC 3.9 (3.8-10.6) k/uL RBC 3.40 L (3.80-5.40) m/uL Hgb 9.8 L D (11.4-16.0) gm/dL Hct 28.8 L (34.0-46.0) % MCV 84.8 (80.0-100.0) fL MCH 28.9 (25.0-35.0) pg MCHC 34.1 (31.0-37.0) g/dL RDW 14.2 (11.5-15.5) % Plt Count 204 (150-450) k/uL Neutrophils % 77 % Lymphocytes % 7 % Monocytes % 6 % Eosinophils % 8 % Basophils % 1 % Neutrophils # 3.0 (1.3-7.7) k/uL Lymphocytes # 0.3 L (1.0-4.8) k/uL Monocytes # 0.2 (0-1.0) k/uL Eosinophils # 0.3 (0-0.7) k/uL Basophils # 0.0 (0-0.2) k/uL Hypochromasia Slight Poikilocytosis Moderate PT (9.0-12.0) sec INR (<1.2) APTT (22.0-30.0) sec Sodium 136 L (137-145) mmol/L Potassium 4.4 (3.5-5.1) mmol/L Chloride 100 (98-107) mmol/L Carbon Dioxide 23 (22-30) mmol/L Anion Gap 13 mmol/L BUN 9 (7-17) mg/dL Creatinine 0.70 (0.52-1.04) mg/dL Est GFR (CKD-EPI)AfAm >90 (>60 ml/min/1.73 sqM) Est GFR (CKD-EPI)NonAf >90 (>60 ml/min/1.73 sqM) Glucose 295 H (74-99) mg/dL Plasma Lactic Acid Edwin 1.0 (0.7-2.0) mmol/L Calcium 8.9 (8.4-10.2) mg/dL Total Bilirubin 0.5 (0.2-1.3) mg/dL AST 35 (14-36) U/L ALT 31 (9-52) U/L Alkaline Phosphatase 111 (38-126) U/L Total Protein 5.9 L (6.3-8.2) g/dL Albumin 3.1 L (3.5-5.0) g/dL Amylase 32 (30-110) U/L Lipase 72 (23-300) U/L Urine Color Urine Appearance (Clear) Urine pH (5.0-8.0) Ur Specific [place] (1.001-1.035) Urine Protein (Negative) Urine Glucose (UA) (Negative) Urine Ketones (Negative) Urine Blood (Negative) Urine Nitrite (Negative) Urine Bilirubin (Negative) Urine Urobilinogen (<2.0) mg/dL Ur Leukocyte Esterase (Negative) Urine RBC (0-5) /hpf Urine WBC (0-5) /hpf Urine WBC Clumps (None) /hpf Urine Mucus (None) /hpf Urine Yeast (Budding) (None) /hpf 10/23/17 10/23/17 Range/Units 12:30 12:40 WBC (3.8-10.6) k/uL RBC (3.80-5.40) m/uL Hgb (11.4-16.0) gm/dL Hct (34.0-46.0) % MCV (80.0-100.0) fL MCH (25.0-35.0) pg MCHC (31.0-37.0) g/dL RDW (11.5-15.5) % Plt Count (150-450) k/uL Neutrophils % % Lymphocytes % % Monocytes % % Eosinophils % % Basophils % % Neutrophils # (1.3-7.7) k/uL Lymphocytes # (1.0-4.8) k/uL Monocytes # (0-1.0) k/uL Eosinophils # (0-0.7) k/uL Basophils # (0-0.2) k/uL Hypochromasia Poikilocytosis PT 9.4 (9.0-12.0) sec INR 0.9 (<1.2) APTT 20.7 L (22.0-30.0) sec Sodium (137-145) mmol/L Potassium (3.5-5.1) mmol/L Chloride (98-107) mmol/L Carbon Dioxide (22-30) mmol/L Anion Gap mmol/L BUN (7-17) mg/dL Creatinine (0.52-1.04) mg/dL Est GFR (CKD-EPI)AfAm (>60 ml/min/1.73 sqM) Est GFR (CKD-EPI)NonAf (>60 ml/min/1.73 sqM) Glucose (74-99) mg/dL Plasma Lactic Acid Edwin (0.7-2.0) mmol/L Calcium (8.4-10.2) mg/dL Total Bilirubin (0.2-1.3) mg/dL AST (14-36) U/L ALT (9-52) U/L Alkaline Phosphatase (38-126) U/L Total Protein (6.3-8.2) g/dL Albumin (3.5-5.0) g/dL Amylase (30-110) U/L Lipase (23-300) U/L Urine Color Light Yellow Urine Appearance Turbid H (Clear) Urine pH 7.0 (5.0-8.0) Ur Specific [place] 1.014 (1.001-1.035) Urine Protein 1+ H (Negative) Urine Glucose (UA) 4+ H (Negative) Urine Ketones Negative (Negative) Urine Blood Small H (Negative) Urine Nitrite Negative (Negative) Urine Bilirubin Negative (Negative) Urine Urobilinogen <2.0 (<2.0) mg/dL Ur Leukocyte Esterase Large H (Negative) Urine RBC 100 H (0-5) /hpf Urine WBC >182 H (0-5) /hpf Urine WBC Clumps Occasional H (None) /hpf Urine Mucus Occasional H (None) /hpf Urine Yeast (Budding) Many H (None) /hpf Disposition Clinical Impression: Intra-abdominal fluid collection, Urinary tract infection, Fever, History of major abdominal surgery, Sciatica, Infection associated with indwelling ureteral stent, Liposarcoma Disposition: OTHER INSTITUTION NOT DEFINED Condition: Stable Referrals: Carlos Ling MD [Primary Care Provider] - 1-2 days - Out of Hospital Transfer - Req. Specs Out of Hospital Transfer - Requested Specifics: Other Emergency Center ( [facility])
[2017-10-23 12:49] LABS: HGB 9.8 gm/dL (11.4-16.0)
[2017-10-23 12:51] LABS: INR 0.9 (<1.2); Prothrombin Time 9.4 sec (9.0-12.0)
[2017-10-23 13:04] LABS: Appearance,Urine Turbid (Clear); Bilirubin,Urine Negative (Negative); Blood,Urine Small (Negative); Budding Yeast,Urine Many /hpf; Color,Urine Light Yellow; Glucose,Urine (UA) 4+ (Negative); Ketones,Urine Negative (Negative); Leukocyte Esterase,Urine Large (Negative); Mucus,Urine Occasional /hpf; Nitrite,Urine Negative (Negative); Protein,Urine 1+ (Negative); RBC,Urine 100 /hpf (0-5); Specific Gravity,Urine 1.014 (1.001-1.035); Urobilinogen,Urine <2.0 mg/dL (<2.0); WBC,Urine >182 /hpf (0-5)
[2017-10-23 13:18] LABS: ALT 31 U/L (9-52); AST 35 U/L (14-36); Albumin 3.1 g/dL (3.5-5.0); Alkaline Phosphatase 111 U/L (38-126); Amylase 32 U/L (30-110); Anion Gap 13 mmol/L; Blood Urea Nitrogen 9 mg/dL (7-17); Calcium 8.9 mg/dL (8.4-10.2); Carbon Dioxide 23 mmol/L (22-30); Chloride 100 mmol/L (98-107); Glucose 295 mg/dL (74-99); Lipase 72 U/L (23-300); Potassium 4.4 mmol/L (3.5-5.1); Sodium 136 mmol/L (137-145); Total Bilirubin 0.5 mg/dL (0.2-1.3); Total Protein 5.9 g/dL (6.3-8.2)
[2017-10-23 13:29] LABS: Partial Thromboplastin Time 20.7 sec (22.0-30.0)
[2017-10-23 13:32] VITALS: TEMP 100.4
[2017-10-23] MEDS ORDERED: MORPHINE SULFATE/PF 10MG/10ML VL IVP STA (13:45)
[2017-10-23] MEDS ORDERED: ACETAMINOPHEN TAB 325 MG TAB PO STA (13:45)
--- NOTE | 2017-10-23 14:22 | CT ---
EXAMINATION TYPE: CT abdomen pelvis w con DATE OF EXAM: 10/23/2017 COMPARISON: 04/17/2017 HISTORY: Patient complains of posterior right buttock/leg pain post recent surgery. CT DLP: 1996 mGycm Automated exposure control for dose reduction was used. CONTRAST: CT scan of the abdomen pelvis is performed with IV Contrast, patient injected with 86 mL of Isovue 30 0. FINDINGS- LUNG BASES-subsegmental changes at the lung bases are suggestive of atelectasis. LIVER/GB- No gross abnormality is appreciated. PANCREAS- No gross abnormality is seen. SPLEEN-mild splenomegaly measuring 14 cm.. ADRENALS- No gross abnormality is seen. KIDNEYS/BLADDER-there is air within the left renal collecting system with a ureteral stent noted. Walter ears to extend to the level of the bladder which demonstrates a thickened wall but is decompressed an d there is inflammatory change surrounding the bladder. Within the pelvis there is a large fluid fidel ection measuring 7 cm. Surgical clips are noted in the region. This extends into the perineum. Hypoat tenuation involving the anterior cortex of the right kidney is less than a centimeter and too small t o characterize.. BOWEL- no bowel dilatation. Normal appendix. LYMPH NODES- No greater than 1cm abdominal or pelvic lymph nodes areappreciated. OSSEOUS STRUCTURES-degenerative change of the spine is seen. OTHER- post hysterectomy changes noted. Small anterior abdominal wall hernia noted. IMPRESSION- 1. Large fluid collection measuring 7 cm within the pelvis at the site of previous neoplasm and surgi antonio bed. Potentially could represent a large postoperative seroma. Other etiologies including abscess not excluded but felt less likely, correlate clinically. 2. There is inflammatory change surrounding the distal margin of the ureter on the left with a ureter al stent in position. The wall the bladder also appears to be markedly thickened even though it is no ndistended. Martel catheter noted. Correlate for infectious etiology including cystitis. 3. Splenomegaly.
[2017-10-23 14:35] VITALS: BP 112/63; PULSE 102
[2017-10-23] MEDS ORDERED: CEFEPIME 2 GM in SODIUM CHLORIDE 0.9% 50 ML IVPB STA (15:14)
[2017-10-23] MEDS ORDERED: VANCOMYCIN IV PER PHARMACY 1 EACH MISC MISCELLANE PRN (15:17)
[2017-10-23] MEDS ORDERED: SODIUM CHLORIDE 0.9% 500 ML IV ONE (15:17)
[2017-10-23] MEDS ORDERED: VANCOMYCIN 1,500 MG in SODIUM CHLORIDE 0.9% 250 ML IVPB STA (15:19)
--- NOTE | 2017-10-23 16:20 | US ---
EXAMINATION TYPE: US venous doppler duplex LE LT DATE OF EXAM: 10/23/2017 1:31 PM COMPARISON: CLINICAL HISTORY: Pain. Pain. No swelling or redness. No hx of blood clots. On blood thinners. SIDE PERFORMED: Left TECHNIQUE: The lower extremity deep venous system is examined utilizing real time linear array sonog ryan with graded compression, doppler sonography and color-flow sonography. VESSELS IMAGED: External Iliac Vein (EIV) Common Femoral Vein Deep Femoral Vein Greater Saphenous Vein * Femoral Vein Popliteal Vein Small Saphenous Vein * Proximal Calf Veins (* superficial vessels) Left Leg: Negative for DVT IMPRESSION: 1. No diagnostic evidence of DVT.
== END 2017-10-23 16:44 | disposition other institution (70) ==
LOC: EC 11:26
DX: T83.592A Infection and inflammatory reaction due to indwelling ureteral stent, initial encounter (principal); N39.0 Urinary tract infection, site not specified; R50.9 Fever, unspecified; M54.30 Sciatica, unspecified side; R18.8 Other ascites; C76.3 Malignant neoplasm of pelvis; J45.909 Unspecified asthma, uncomplicated; M79.7 Fibromyalgia; M19.90 Unspecified osteoarthritis, unspecified site; E11.40 Type 2 diabetes mellitus with diabetic neuropathy, unspecified; K21.9 Gastro-esophageal reflux disease without esophagitis; E78.5 Hyperlipidemia, unspecified; I10 Essential (primary) hypertension; F41.9 Anxiety disorder, unspecified; Z79.01 Long term (current) use of anticoagulants; Z79.84 Long term (current) use of oral hypoglycemic drugs; Z79.891 Long term (current) use of opiate analgesic; Z79.899 Other long term (current) drug therapy; Z88.0 Allergy status to penicillin; Z88.2 Allergy status to sulfonamides; Z91.018 Allergy to other foods
CPT/HCPCS: 36415; 80053; 82150; 83605; 83690; 85025; 85610; 85730; 81001; 87040; 87086; 93971; 74177; 99285; 96365; 96375 ×2; 96376; 96361 ×3; J2405; J0692; Q9967; J2270

== ENCOUNTER → 2017-12-05 | Outpatient (CLI) | payer MEDICAID ==
[2017-12-05 08:51] LABS: Basophils % (A) 1 %; Eosinophils # (A) 0.2 k/uL (0-0.7); Eosinophils % (A) 3 %; HCT 34.3 % (34.0-46.0); HGB 11.2 gm/dL (11.4-16.0); Hypochromasia Slight; Lymphocytes # (A) 0.7 k/uL (1.0-4.8); Lymphocytes % (A) 11 %; MCH 27.2 pg (25.0-35.0); MCHC 32.6 g/dL (31.0-37.0); MCV 83.3 fL (80.0-100.0); Mean Platelet Volume 7.2; Monocytes # (A) 0.3 k/uL (0-1.0); Monocytes % (A) 5 %; Neutrophils # (A) 5.5 k/uL (1.3-7.7); Neutrophils % (A) 80 %; Platelet Count 292 k/uL (150-450); Poikilocytosis Slight; RBC 4.12 m/uL (3.80-5.40); RDW 14.5 % (11.5-15.5); WBC 6.9 k/uL (3.8-10.6)
[2017-12-05 09:21] LABS: Creatine Kinase MB <0.2 ng/mL (0.0-2.4); Troponin I <0.012 ng/mL (0.000-0.034)
[2017-12-05 09:23] LABS: Calcium 9.5 mg/dL (8.4-10.2); Potassium 4.4 mmol/L (3.5-5.1); Total Bilirubin 0.5 mg/dL (0.2-1.3); Total Protein 7.1 g/dL (6.3-8.2)
[2017-12-05 09:32] LABS: T4, Free (Free Thyroxine) 1.24 ng/dL (0.78-2.19)
== END | disposition home or self-care (01) ==
LOC: LABWHC1 08:26
PROVIDERS: ATTEND Nurse Practitioner Women's Health
DX: C49.9 Malignant neoplasm of connective and soft tissue, unspecified (principal); I10 Essential (primary) hypertension; E11.9 Type 2 diabetes mellitus without complications
CPT/HCPCS: 36415; 80053; 80061; 82553; 84439; 84443; 84484; 85025

== ENCOUNTER 2017-12-18 18:49 | Inpatient (IN) | payer MEDICAID ==
[2017-12-18] MEDS ORDERED: RX INFO: IV CONTRAST WAS GIVEN 1 EACH MISC MISCELLANE PRN (22:15)
[2017-12-18] MEDS ORDERED: ACETAMINOPHEN TAB 325 MG TAB PO STA (22:16)
[2017-12-18] MEDS ORDERED: SODIUM CHLORIDE 0.9% 1,000 ML IV ONE (22:16)
[2017-12-18] MEDS ORDERED: MORPHINE SULFATE 4 MG/ML SYRINGE IVP STA (22:16)
[2017-12-18 22:29] LABS: Basophils % (A) 0 %; Eosinophils # (A) 0.1 k/uL (0-0.7); Eosinophils % (A) 2 %; HCT 32.9 % (34.0-46.0); HGB 10.7 gm/dL (11.4-16.0); Hypochromasia Slight; Lymphocytes # (A) 0.9 k/uL (1.0-4.8); Lymphocytes % (A) 14 %; MCH 26.3 pg (25.0-35.0); MCHC 32.5 g/dL (31.0-37.0); Mean Platelet Volume 6.7; Monocytes # (A) 0.4 k/uL (0-1.0); Monocytes % (A) 6 %; Neutrophils # (A) 5.2 k/uL (1.3-7.7); Neutrophils % (A) 77 %; Platelet Count 341 k/uL (150-450); RBC 4.07 m/uL (3.80-5.40); RDW 15.1 % (11.5-15.5); WBC 6.8 k/uL (3.8-10.6)
[2017-12-18 22:42] LABS: ALT 35 U/L (9-52); AST 30 U/L (14-36); Alkaline Phosphatase 113 U/L (38-126); Amylase 43 U/L (30-110); Anion Gap 15 mmol/L; Blood Urea Nitrogen 14 mg/dL (7-17); Calcium 9.7 mg/dL (8.4-10.2); Carbon Dioxide 26 mmol/L (22-30); Chloride 100 mmol/L (98-107); Glucose 226 mg/dL (74-99); Lipase 56 U/L (23-300); Potassium 3.8 mmol/L (3.5-5.1); Sodium 141 mmol/L (137-145); Total Bilirubin 0.3 mg/dL (0.2-1.3); Total Protein 7.2 g/dL (6.3-8.2)
--- NOTE | 2017-12-18 23:08 | ED ---
Fever HPI - General Chief Complaint: Fever Stated Complaint: fever, post op, flank and abdominal pain Time Seen by Provider: 12/18/17 21:50 Source: patient Mode of arrival: wheelchair Limitations: no limitations - History of Present Illness Initial Comments: 57-year-old female patient presents to the emergency department today for evaluation of intermittent fevers over the last 2 weeks. Patient states the fever is generally spike in the evening she has had a couple over 101F. She is currently being treated with Macrobid for Urinary Tract Infection, started medication on 12/15/17. 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 Patient did undergo surgery for resection of the tumor in the middle of September 2017. She has had [address] drains for fluid build up in the abdomen. She does have an ileostomy. Patient states she has been having right lower quadrant abdominal pain. She also has left flank pain she believes is related to nerve pain. States that she feels generally weak and unwell. She states he has also been having some intermittent episodes of dyspnea that resolved rather quickly. She denies any cough or congestion. Denies any palpitations. Patient denies any recent rash, nausea, vomiting, diarrhea, constipation, back pain, numbness, tingling, hematuria, dysuria, urinary urgency, urinary frequency, headache, visual changes, or any other complaints. Patient was initially diagnosed with the liposarcoma in December of 2016. She underwent chemotherapy last dose in April 2017, then radiation with last dose in July 2017. - Related Data Home Medications Medication Instructions Recorded Confirmed ALPRAZolam [Xanax] 0.25 mg PO DAILY PRN 12/31/16 12/18/17 Albuterol Sulfate [Proair Hfa] 2 puff INHALATION RT-Q6H PRN 12/31/16 12/18/17 Atorvastatin [Lipitor] 20 mg PO HS 12/31/16 12/18/17 Famotidine [Pepcid] 20 mg PO DAILY 12/31/16 12/18/17 Fenofibrate [Lofibra] 160 mg PO DAILY 12/31/16 12/18/17 Loratadine [Claritin] 10 mg PO QAM 12/31/16 12/18/17 Montelukast [Singulair] 10 mg PO DAILY 12/31/16 12/18/17 metFORMIN HCL ER [Glucophage Xr] 500 mg PO BID 12/31/16 12/18/17 Docusate [Colace] 100 mg PO DAILY 10/23/17 12/18/17 Ondansetron HCl [Zofran] 4 mg PO QID PRN 10/23/17 12/18/17 diphenhydrAMINE [Benadryl] 25 mg PO QID PRN 10/23/17 12/18/17 Gabapentin [Neurontin] 400 mg PO TID 12/18/17 12/18/17 Insulin Glargine,Hum.rec.anlog 100 unit SQ HS 12/18/17 12/18/17 [Toujeo Solostar] Insulin Glulisine [Apidra Solostar] 45 unit SQ TID-W/MEALS 12/18/17 12/18/17 Insulin Glulisine [Apidra Solostar] See Protocol SQ HS 12/18/17 12/18/17 Nitrofurantoin Monohyd/M-Cryst 100 mg PO Q12HR 12/18/17 12/18/17 [Macrobid] Polyethylene Glycol 3350 [Miralax] 17 gm PO BID 12/18/17 12/18/17 Xarelto Unknown Dose 1 tab PO HS 12/18/17 12/18/17 Allergies Allergy/AdvReac Type Severity Reaction Status Date / Time cefepime Allergy Unknown Verified 12/18/17 22:22 Penicillins Allergy Dyspnea/Rolando Verified 12/18/17 22:22 h Sulfa (Sulfonamide Allergy Unknown Verified 12/18/17 22:22 Antibiotics) Childhood artificial sweetner Allergy Severe Rash/Hives Uncoded 12/18/17 18:56 Review of Systems ROS Statement: Those systems with pertinent positive or pertinent negative responses have been documented in the HPI. ROS Other: All systems not noted in ROS Statement are negative. Past Medical History Past Medical History: Asthma, Cancer, Diabetes Mellitus, Fibromyalgia, GERD/ Reflux, Hyperlipidemia, Hypertension, Osteoarthritis (OA), Renal Disease Additional Past Medical History / Comment(s): Liposarcoma 12/31/16 with pelvic mass removal, IDDM type II, L elbow fracture-surgery/bone removal, arthritis bilateral knees/shoulders/L elbow, DDD- cervical spine and upper back, lower spinal stenosis, bilateral tinnitis, neuropathy chin and arms at times. History of Any Multi-Drug Resistant Organisms: None Reported Past Surgical History: Adenoidectomy, Appendectomy, Bowel Resection, Section, Hysterectomy, Orthopedic Surgery, Tonsillectomy Additional Past Surgical History / Comment(s): Exploratory lap with pelvic mass removal, port placement, kidney stent/removed, D&C, right lateral salpingo- oophorectomy, colonoscopy, umbilical hernia repair, L knee arthroscopy, L elbow implant then bone removal. Past Anesthesia/Blood Transfusion Reactions: Postoperative Nausea & Vomiting ( PONV) Past Psychological History: Anxiety Smoking Status: Never smoker Past Alcohol Use History: None Reported Past Drug Use History: None Reported - Past Family History Mother Family Medical History: Cancer Additional Family Medical History / Comment(s): eye, heart disease Father Additional Family Medical History / Comment(s): ALS, . Sister(s) Additional Family Medical History / Comment(s): ALS - General Exam Limitations: no limitations General appearance: alert, in no apparent distress, other (This is a well- developed, well-nourished adult female patient in no acute distress. Vital signs upon presentation her troponin 99.2F, pulse 101, respirations 18, blood pressure 142/83, pulse ox 100% on room air.) Eye exam: Present: normal appearance, PERRL, EOMI. Absent: scleral icterus, conjunctival injection, periorbital swelling ENT exam: Present: normal exam, normal oropharynx, mucous membranes moist Respiratory exam: Present: normal lung sounds bilaterally. Absent: respiratory distress, wheezes, rales, rhonchi, stridor Cardiovascular Exam: Present: normal rhythm, tachycardia, normal heart sounds. Absent: regular rate, systolic murmur, diastolic murmur, rubs, gallop, clicks GI/Abdominal exam: Present: soft, tenderness (Mild right lower quadrant tenderness), normal bowel sounds. Absent: distended, guarding, rebound, rigid Neurological exam: Present: alert, oriented X3, CN II-XII intact Psychiatric exam: Present: normal affect, normal mood Skin exam: Present: warm, dry, intact, normal color. Absent: rash Course Vital Signs 12/18/17 12/18/17 12/18/17 18:56 22:02 23:31 Temperature 99.2 F 100.7 F H 100.8 F H Pulse Rate 101 H 97 92 Respiratory 18 18 18 Rate Blood Pressure 142/83 137/67 127/67 O2 Sat by Pulse 100 99 98 Oximetry 12/19/17 12/19/17 12/19/17 00:35 01:50 03:14 Temperature 100.3 F H 98.4 F 98.6 F Pulse Rate 95 82 77 Respiratory 18 16 18 Rate Blood Pressure 125/62 106/57 130/65 O2 Sat by Pulse 97 96 97 Oximetry Medical Decision Making - Medical Decision Making 57-year-old female patient presents to emergency department today for evaluation of fevers on and off for the last 2 weeks. Physical examination does reveal some mild right lower quadrant abdominal tenderness. Labs reviewed and showed a white blood cell count of 6.8, glucose 226, plasma lactic acid of 1.2, urinalysis shows a specific gravity of 1.050, 1+ protein, 3+ glucose, trace blood, large leukocyte esterase, 13 red blood cells, 74 white blood cells , few white blood cell clumps, rare bacteria, rare mucous, occasional urine yeast. Upon arrival patient was febrile and tachycardic. Patient also reported recent episodes of dyspnea and sharp chest pain, given this coupled with her recent cancer diagnosis and surgery did perform CTA of the chest to rule out pulmonary embolism. No PE was found. CT of the abdomen was performed to rule out infection from recent surgery. CT of the abdomen did show a 9 mm stone in the left ureter, this is obstructing and causing hydronephrosis. Patient did have recent ureteral surgery and bladder surgery. Patient has seen Dr. Stone in the past as urologist for kidney stones. Patient will be admitted to the hospital for septic stone. She'll be started on Levaquin. She'll be admitted to Dr. Stevens. - Lab Data Result diagrams: 12/18/17 21:05 12/18/17 21:05 Lab Results 12/18/17 12/18/17 12/18/17 Range/Units 21:05 21:05 21:05 WBC 6.8 (3.8-10.6) k/uL RBC 4.07 (3.80-5.40) m/uL Hgb 10.7 L (11.4-16.0) gm/dL Hct 32.9 L (34.0-46.0) % MCV 81.0 (80.0-100.0) fL MCH 26.3 (25.0-35.0) pg MCHC 32.5 (31.0-37.0) g/dL RDW 15.1 (11.5-15.5) % Plt Count 341 (150-450) k/uL Neutrophils % 77 % Lymphocytes % 14 % Monocytes % 6 % Eosinophils % 2 % Basophils % 0 % Neutrophils # 5.2 (1.3-7.7) k/uL Lymphocytes # 0.9 L (1.0-4.8) k/uL Monocytes # 0.4 (0-1.0) k/uL Eosinophils # 0.1 (0-0.7) k/uL Basophils # 0.0 (0-0.2) k/uL Hypochromasia Slight Sodium 141 (137-145) mmol/L Potassium 3.8 (3.5-5.1) mmol/L Chloride 100 (98-107) mmol/L Carbon Dioxide 26 (22-30) mmol/L Anion Gap 15 mmol/L BUN 14 (7-17) mg/dL Creatinine 0.80 (0.52-1.04) mg/dL Est GFR (CKD-EPI)AfAm >90 (>60 ml/min/1.73 sqM) Est GFR (CKD-EPI)NonAf 83 (>60 ml/min/1.73 sqM) Glucose 226 H (74-99) mg/dL Plasma Lactic Acid Edwin 1.2 (0.7-2.0) mmol/L Calcium 9.7 (8.4-10.2) mg/dL Total Bilirubin 0.3 (0.2-1.3) mg/dL AST 30 (14-36) U/L ALT 35 (9-52) U/L Alkaline Phosphatase 113 (38-126) U/L Total Protein 7.2 (6.3-8.2) g/dL Albumin 4.0 (3.5-5.0) g/dL Amylase 43 (30-110) U/L Lipase 56 (23-300) U/L Urine Color Urine Appearance (Clear) Urine pH (5.0-8.0) Ur Specific [place] (1.001-1.035) Urine Protein (Negative) Urine Glucose (UA) (Negative) Urine Ketones (Negative) Urine Blood (Negative) Urine Nitrite (Negative) Urine Bilirubin (Negative) Urine Urobilinogen (<2.0) mg/dL Ur Leukocyte Esterase (Negative) Urine RBC (0-5) /hpf Urine WBC (0-5) /hpf Urine WBC Clumps (None) /hpf Ur Squamous Epith Cells (0-4) /hpf Urine Bacteria (None) /hpf Urine Mucus (None) /hpf Urine Yeast (Budding) (None) /hpf 12/19/17 Range/Units 00:30 WBC (3.8-10.6) k/uL RBC (3.80-5.40) m/uL Hgb (11.4-16.0) gm/dL Hct (34.0-46.0) % MCV (80.0-100.0) fL MCH (25.0-35.0) pg MCHC (31.0-37.0) g/dL RDW (11.5-15.5) % Plt Count (150-450) k/uL Neutrophils % % Lymphocytes % % Monocytes % % Eosinophils % % Basophils % % Neutrophils # (1.3-7.7) k/uL Lymphocytes # (1.0-4.8) k/uL Monocytes # (0-1.0) k/uL Eosinophils # (0-0.7) k/uL Basophils # (0-0.2) k/uL Hypochromasia Sodium (137-145) mmol/L Potassium (3.5-5.1) mmol/L Chloride (98-107) mmol/L Carbon Dioxide (22-30) mmol/L Anion Gap mmol/L BUN (7-17) mg/dL Creatinine (0.52-1.04) mg/dL Est GFR (CKD-EPI)AfAm (>60 ml/min/1.73 sqM) Est GFR (CKD-EPI)NonAf (>60 ml/min/1.73 sqM) Glucose (74-99) mg/dL Plasma Lactic Acid Edwin (0.7-2.0) mmol/L Calcium (8.4-10.2) mg/dL Total Bilirubin (0.2-1.3) mg/dL AST (14-36) U/L ALT (9-52) U/L Alkaline Phosphatase (38-126) U/L Total Protein (6.3-8.2) g/dL Albumin (3.5-5.0) g/dL Amylase (30-110) U/L Lipase (23-300) U/L Urine Color Yellow Urine Appearance Clear (Clear) Urine pH 6.5 (5.0-8.0) Ur Specific [place] 1.050 H (1.001-1.035) Urine Protein 1+ H (Negative) Urine Glucose (UA) 3+ H (Negative) Urine Ketones Negative (Negative) Urine Blood Trace H (Negative) Urine Nitrite Negative (Negative) Urine Bilirubin Negative (Negative) Urine Urobilinogen <2.0 (<2.0) mg/dL Ur Leukocyte Esterase Large H (Negative) Urine RBC 13 H (0-5) /hpf Urine WBC 74 H (0-5) /hpf Urine WBC Clumps Few H (None) /hpf Ur Squamous Epith Cells <1 (0-4) /hpf Urine Bacteria Rare H (None) /hpf Urine Mucus Rare H (None) /hpf Urine Yeast (Budding) Occasional H (None) /hpf - Radiology Data Radiology results: report reviewed, image reviewed CT angio of the chest was obtained. Report was reviewed in its entirety. Impression by Dr. Guerrero shows no evidence of pulmonary embolism. CT of the abdomen and pelvis with contrast was obtained. Report was reviewed in its entirety. Impression by Dr. Guerrero shows large obstructing calculus in the mid left ureter with significant left-sided hydronephrosis and proximal hydroureter. There has been removal of the left ureteral stent compared to old exam. There is a large fluid collection in the presacral region of the pelvis consistent with hematoma or abscess or seroma that is smaller than the old computed tomography scan. There is slight improvement any inflammatory changes in the pelvis and with fat stranding compared to old exam. Disposition Clinical Impression: Kidney stone, Sepsis, Urinary tract infection Disposition: ADMITTED IP TO THIS HOSP Referrals: Carlos Ling MD [Primary Care Provider] - 1-2 days Decision to Admit Reason: Admit from EC Decision Date: 12/19/17 Decision Time: 02:42
[2017-12-18] MEDS: ONDANSETRON 4 MG/2 ML VIAL IVP STA (23:32)
--- NOTE | 2017-12-18 23:52 | CT ---
EXAMINATION TYPE: CT angio chest DATE OF EXAM: 12/18/2017 11:41 PM COMPARISON: NONE HISTORY: Prior on synapse, fever, right flank and low abd pain, history of abdominal liposarcoma with radical surgery involving, bowel, bladder and ureter, R/O PE CT DLP: 2172.10 mGycm Automated exposure control for dose reduction was used. CONTRAST: CTA scan of the thorax is performed with IV Contrast, patient injected with 100 mL of Isovue 370, pul monary embolism protocol. There are 3-D post processed images.. FINDINGS: The lungs are clear of consolidation. There is no evidence of a pulmonary mass. There is no pleural e ffusion. There is no pericardial effusion. There is no evidence of aortic aneurysm or dissection. The ascending aorta measures 3 cm. There is no mediastinal adenopathy. There are no hilar masses. I see no filling defects in the pulmonary arterie s. There are small bronchial lymph nodes measure up to 1 cm. The bony thorax is intact. IMPRESSION: NO EVIDENCE OF PULMONARY EMBOLISM.
--- NOTE | 2017-12-19 00:01 | CT ---
EXAMINATION TYPE: CT abdomen pelvis w con DATE OF EXAM: 12/18/2017 COMPARISON: 10/23/2017 HISTORY: Prior on synapse, fever, right flank and low abd pain, history of abdominal liposarcoma with radical surgery involving, bowel, bladder and ureter CT DLP: 2172.10 mGycm Automated exposure control for dose reduction was used. TECHNIQUE: Helical acquisition of images was performed from the lung bases through the pelvis. CONTRAST: Performed without Oral Contrast and with IV Contrast, patient injected with 100 mL of Isovue 370. FINDINGS: Lung bases are clear of infiltrate. There is no pleural effusion or there is no pericardial effusion. The liver spleen pancreas gallbladder appear normal. Bile ducts are not dilated. There is no adrenal mass. There is slight decreased cortical enhancement of the left kidney compared to the right. There is left-sided hydronephrosis and hydroureter. There is 9 mm calculus in the mid left ureter. There i s perinephric edema. Bladder distends smoothly. There is fluid in the pelvis in the presacral region. This measures 6.5 x 2.5 cm. There are surgical clips in the lower pelvis. There is a left-sided colo stomy. I see no bony destructive process. There is a small subcutaneous fluid collection over the low er anterior abdominal wall that is unchanged. This measures up to 12 mm in thickness. IMPRESSION: THERE IS LARGE OBSTRUCTING CALCULUS IN THE MID LEFT URETER WITH SIGNIFICANT LEFT-SIDED HYDRONEPHROSIS AND PROXIMAL HYDROURETER. THERE IS BEEN REMOVAL OF THE LEFT URETERAL STENT COMPARED TO OLD EXAM. THE RE IS A LARGE FLUID COLLECTION IN THE PRESACRAL REGION OF THE PELVIS CONSISTENT WITH HEMATOMA OR ABSC ESS OR SEROMA THAT IS SMALLER THAN THE OLD CT SCAN. THERE IS SLIGHT IMPROVEMENT IN THE INFLAMMATORY C HANGES IN THE PELVIS AND WITH FAT STRANDING COMPARED TO OLD EXAM.
[2017-12-19 01:16] LABS: Appearance,Urine Clear (Clear); Bacteria,Urine Rare /hpf; Bilirubin,Urine Negative (Negative); Blood,Urine Trace (Negative); Budding Yeast,Urine Occasional /hpf; Color,Urine Yellow; Glucose,Urine (UA) 3+ (Negative); Ketones,Urine Negative (Negative); Leukocyte Esterase,Urine Large (Negative); Mucus,Urine Rare /hpf; Nitrite,Urine Negative (Negative); PH, Urine 6.5 (5.0-8.0); Protein,Urine 1+ (Negative); RBC,Urine 13 /hpf (0-5); Squamous Epithelial Cell,Urine <1 /hpf (0-4); Urobilinogen,Urine <2.0 mg/dL (<2.0); WBC,Urine 74 /hpf (0-5)
[2017-12-19] MEDS ORDERED: NALOXONE 0.4 MG/ML 1 ML VIAL IV PRN (02:32)
[2017-12-19] MEDS ORDERED: ACETAMINOPHEN TAB 325 MG TAB PO PRN (02:32)
[2017-12-19] MEDS ORDERED: ONDANSETRON 4 MG/2 ML VIAL IVP PRN (02:32)
[2017-12-19] MEDS ORDERED: cefTRIAXone IN SWFI 2,000 MG/20 ML SYRINGE IVP STA (02:37)
[2017-12-19] MEDS ORDERED: LEVOFLOXACIN 750MG-D5W PMX 750 MG in DEXTROSE/WATER 1 150ML.BAG IVPB STA (02:40)
[2017-12-19] MEDS: MORPHINE SULFATE 4 MG/ML SYRINGE IV PRN ×2 (03:07→06:47)
[2017-12-19] MEDS: SODIUM CHLORIDE 0.9% 1,000 ML IV SCH ×3 (03:10→22:41)
[2017-12-19] MEDS ORDERED: diphenhydrAMINE 25 MG CAP PO PRN (07:33)
[2017-12-19] MEDS ORDERED: ALBUTEROL NEBULIZED 2.5 MG/3 ML INHALATION PRN (07:33)
[2017-12-19] MEDS ORDERED: ONDANSETRON 4 MG TAB PO PRN (07:33)
[2017-12-19] MEDS ORDERED: ALPRAZolam 0.25 MG TAB PO PRN (07:33)
[2017-12-19] MEDS ORDERED: FENOFIBRATE 160 MG TAB PO SCH (09:00)
[2017-12-19] MEDS ORDERED: FAMOTIDINE 20 MG TAB PO SCH (09:00)
[2017-12-19] MEDS ORDERED: MONTELUKAST 10 MG TAB PO SCH (09:00)
[2017-12-19] MEDS: HYDROmorphone 0.5 MG/0.5 ML SYRINGE IVP PRN ×3 (09:04→20:09)
[2017-12-19] MEDS: POLYETHYLENE GLYCOL 3350 17 GM POWD.PACK PO SCH ×2 (09:17→21:20)
[2017-12-19] MEDS: LORATADINE 10 MG TAB PO SCH (09:17)
[2017-12-19] MEDS: GABAPENTIN 400 MG CAP PO SCH ×3 (09:17→21:20)
[2017-12-19] MEDS: DOCUSATE 100 MG CAP PO SCH (09:17)
[2017-12-19] MEDS: ACETAMINOPHEN IV (For NPO) 1,000 MG in EMPTY BAG 1 BAG IVPB SCH ×3 (10:19→22:41)
[2017-12-19] MEDS: MORPHINE SULFATE 4 MG/ML SYRINGE IVP PRN ×2 (10:48→22:59)
--- NOTE | 2017-12-19 11:30 | P.GSCN ---
History of Present Illness Consult date: 12/19/17 Reason for Consult: Left hydronephrosis secondary to ureteral calculus History of present illness: The patient is a 57-year-old female admitted through the emergency room earlier this morning for evaluation of left flank pain, intermittent fever and left hydronephrosis secondary to a 9 mm distal ureteral calculus. She has a complex history which dates back to last summer when she was discovered to have a pelvic mass which proved to be a liposarcoma. She was treated with chemotherapy in the fall of 2016 but the mass continued to increase in size. She received radiation therapy at [facility] which ended in 07/2017. She underwent removal of the mass along with abdominal perineal resection of the distal colon, resection of the distal left ureter and left ureteral reimplant at [facility] on 10/10/2017. A double-J catheter was left following the surgery. She apparently had problems with postoperative ascites and underwent percutaneous drainage of this later in September. She says she's had intermittent fevers ever since then but it's unclear whether blood or urine cultures have been positive. She had previously been treated with cefepime but developed an ALLERGY to this. She was placed on Macrobid sometime last week through Dr. Ling's office. She describes having intermittent fevers to 101 and earlier today had a temperature over 102. She complains of pain in the left flank which was much more severe over the last 24 hours. She has had no gross hematuria and only minimal dysuria. Computed tomography scan of the abdomen and pelvis today identified left hydroureteronephrosis secondary to a 9 x 9 mm calculus in the distal left ureter just outside the bladder. This calculus appeared to be in the upper pole of the left kidney on a computed tomography scan dated 10/23/2017. At that time a double-J catheter was still in place. Review of Systems - Constitutional Reports anorexia, Reports chills, Reports chronic pain, Reports fatigue, Reports fever - Cardiovascular Denies chest pain, Denies shortness of breath - Respiratory Denies cough, Denies wheezing - Gastrointestinal Reports abdominal pain, Denies constipation, Denies vomiting - Genitourinary Genitourinary: Reports as per HPI Past Medical History Past Medical History: Asthma, Cancer, Diabetes Mellitus, Fibromyalgia, GERD/ Reflux, Hyperlipidemia, Hypertension, Osteoarthritis (OA), Renal Disease Additional Past Medical History / Comment(s): Liposarcoma 12/31/16 with pelvic mass removal, IDDM type II, L elbow fracture-surgery/bone removal, arthritis bilateral knees/shoulders/L elbow, DDD- cervical spine and upper back, lower spinal stenosis, bilateral tinnitis, neuropathy chin and arms at times. History of Any Multi-Drug Resistant Organisms: None Reported Past Surgical History: Adenoidectomy, Appendectomy, Bowel Resection, Section, Hysterectomy, Orthopedic Surgery, Tonsillectomy Additional Past Surgical History / Comment(s): Exploratory lap with pelvic mass removal, port placement, kidney stent/removed, D&C, right lateral salpingo- oophorectomy, colonoscopy, umbilical hernia repair, L knee arthroscopy, L elbow implant then bone removal, third molar removal Past Anesthesia/Blood Transfusion Reactions: Postoperative Nausea & Vomiting ( PONV) Past Psychological History: Anxiety Additional Psychological History / Comment(s): Pt resides with her spouse and currently 2 children at home and another child at college. She is independent. She states she has some issues with anxiety, especially at night time. She uses xanax which helps. Smoking Status: Never smoker Past Alcohol Use History: None Reported Past Drug Use History: None Reported - Past Family History Mother Family Medical History: Cancer Additional Family Medical History / Comment(s): eye, heart disease Father Additional Family Medical History / Comment(s): ALS, . Sister(s) Additional Family Medical History / Comment(s): ALS - Medications and Allergies Home Medications Medication Instructions Recorded Confirmed Type ALPRAZolam [Xanax] 0.25 mg PO DAILY PRN 12/31/16 12/18/17 History Albuterol Sulfate [Proair Hfa] 2 puff INHALATION RT-Q6H PRN 12/31/16 12/18/17 History Atorvastatin [Lipitor] 20 mg PO HS 12/31/16 12/18/17 History Famotidine [Pepcid] 20 mg PO DAILY 12/31/16 12/18/17 History Fenofibrate [Lofibra] 160 mg PO DAILY 12/31/16 12/18/17 History Loratadine [Claritin] 10 mg PO QAM 12/31/16 12/18/17 History Montelukast [Singulair] 10 mg PO DAILY 12/31/16 12/18/17 History metFORMIN HCL ER [Glucophage Xr] 500 mg PO BID 12/31/16 12/18/17 History Docusate [Colace] 100 mg PO DAILY 10/23/17 12/18/17 History Ondansetron HCl [Zofran] 4 mg PO QID PRN 10/23/17 12/18/17 History diphenhydrAMINE [Benadryl] 25 mg PO QID PRN 10/23/17 12/18/17 History Gabapentin [Neurontin] 400 mg PO TID 12/18/17 12/18/17 History Insulin Glargine,Hum.rec.anlog 100 unit SQ HS 12/18/17 12/18/17 History [Toujeo Solostar] Insulin Glulisine [Apidra Solostar] 45 unit SQ TID-W/MEALS 12/18/17 12/18/17 History Insulin Glulisine [Apidra Solostar] See Protocol SQ HS 12/18/17 12/18/17 History Nitrofurantoin Monohyd/M-Cryst 100 mg PO Q12HR 12/18/17 12/18/17 History [Macrobid] Polyethylene Glycol 3350 [Miralax] 17 gm PO BID 12/18/17 12/18/17 History Rivaroxaban [Xarelto] 20 mg PO HS 12/19/17 12/19/17 History Allergies Allergy/AdvReac Type Severity Reaction Status Date / Time Penicillins Allergy Intermediate Dyspnea/Rolando Verified 12/19/17 04:33 h Sulfa (Sulfonamide Allergy Intermediate Rash/Hives Verified 12/19/17 04:34 Antibiotics) cefepime Allergy Mild Unknown Verified 12/19/17 04:34 artificial sweetner Allergy Severe Rash/Hives Uncoded 12/18/17 18:56 Surgical - Exam Vital Signs Temp Pulse Resp BP Pulse Ox 99.2 F 101 H 18 142/83 100 12/18/17 18:56 12/18/17 18:56 12/18/17 18:56 12/18/17 18:56 12/18/17 18:56 - General well developed, moderate distress, moderate pain - Neck no masses, no lymphadectomy - Respiratory normal respiratory effort - Abdomen Abdomen: soft, tender (LUQ), surgical scars (Midline. Functioning colostomy) Results - Labs 12/18/17 21:05 12/18/17 21:05 Abnormal Lab Results - Last 24 Hours (Table) 12/18/17 12/18/17 12/19/17 Range/Units 21:05 21:05 00:30 Hgb 10.7 L (11.4-16.0) gm/dL Hct 32.9 L (34.0-46.0) % Lymphocytes # 0.9 L (1.0-4.8) k/uL Glucose 226 H (74-99) mg/dL Ur Specific [place] 1.050 H (1.001-1.035) Urine Protein 1+ H (Negative) Urine Glucose (UA) 3+ H (Negative) Urine Blood Trace H (Negative) Ur Leukocyte Esterase Large H (Negative) Urine RBC 13 H (0-5) /hpf Urine WBC 74 H (0-5) /hpf Urine WBC Clumps Few H (None) /hpf Urine Bacteria Rare H (None) /hpf Urine Mucus Rare H (None) /hpf Urine Yeast (Budding) Occasional H (None) /hpf Microbiology - Last 24 Hours (Table) 12/19/17 00:30 Urine Culture - Preliminary Urine,Catheterized Diabetes panel 12/18/17 Range/Units 21:05 Sodium 141 (137-145) mmol/L Potassium 3.8 (3.5-5.1) mmol/L Chloride 100 (98-107) mmol/L Carbon Dioxide 26 (22-30) mmol/L BUN 14 (7-17) mg/dL Creatinine 0.80 (0.52-1.04) mg/dL Glucose 226 H (74-99) mg/dL Calcium 9.7 (8.4-10.2) mg/dL AST 30 (14-36) U/L ALT 35 (9-52) U/L Alkaline Phosphatase 113 (38-126) U/L Total Protein 7.2 (6.3-8.2) g/dL Albumin 4.0 (3.5-5.0) g/dL Calcium panel 12/18/17 Range/Units 21:05 Calcium 9.7 (8.4-10.2) mg/dL Albumin 4.0 (3.5-5.0) g/dL Pituitary panel 12/18/17 Range/Units 21:05 Sodium 141 (137-145) mmol/L Potassium 3.8 (3.5-5.1) mmol/L Chloride 100 (98-107) mmol/L Carbon Dioxide 26 (22-30) mmol/L BUN 14 (7-17) mg/dL Creatinine 0.80 (0.52-1.04) mg/dL Glucose 226 H (74-99) mg/dL Calcium 9.7 (8.4-10.2) mg/dL Adrenal panel 12/18/17 Range/Units 21:05 Sodium 141 (137-145) mmol/L Potassium 3.8 (3.5-5.1) mmol/L Chloride 100 (98-107) mmol/L Carbon Dioxide 26 (22-30) mmol/L BUN 14 (7-17) mg/dL Creatinine 0.80 (0.52-1.04) mg/dL Glucose 226 H (74-99) mg/dL Calcium 9.7 (8.4-10.2) mg/dL Total Bilirubin 0.3 (0.2-1.3) mg/dL AST 30 (14-36) U/L ALT 35 (9-52) U/L Alkaline Phosphatase 113 (38-126) U/L Total Protein 7.2 (6.3-8.2) g/dL Albumin 4.0 (3.5-5.0) g/dL Assessment and Plan (1) Hydronephrosis, left Narrative/Plan: The patient appears to have left hydronephrosis secondary to a 9 mm calculus which has migrated from the upper pole left kidney into the distal left ureter. It's unclear whether the patient has been associated urinary tract infection as the pyuria and hematuria noted on admission could be related to her previous surgery as well as the ureteral calculus. In view of the patient's degree of pain and the uncertainty as to whether or not this could be a complicated infection I believe that cystoscopy with placement of a left double-J catheter should be performed later today. Dr. Moya has cared for the patient previously and will perform the procedure. I reviewed the procedure with her. Current Visit: Yes Status: Acute Code(s): N13.30 - UNSPECIFIED HYDRONEPHROSIS SNOMED Code(s): 51470183
[2017-12-19 11:36] VITALS: BMI 27.9
[2017-12-19 11:53] LABS: Glucose,Whole Blood 172 mg/dL (75-99)
[2017-12-19] MEDS: INSULIN ASPART 100 UNIT/ML 1 ML 10 ML VIAL SQ SCH ×3 (12:10→21:21)
[2017-12-19] MEDS: ONDANSETRON 4 MG/2 ML VIAL IVP STA (13:36)
[2017-12-19] MEDS ORDERED: IV FLUID CONTINUATION 1,000 ML IV ONE (13:36)
[2017-12-19] MEDS ORDERED: SUCCINYLCHOLINE CHLORIDE 100 MG/5 ML SYR IV ONE (14:03)
[2017-12-19] MEDS ORDERED: fentaNYL (PF) 50 MCG/ML 2 ML AMP ONE (14:03)
[2017-12-19] MEDS ORDERED: LIDOCAINE 1% INJ 10MG/ML (20 ML MDV) ONE (14:03)
[2017-12-19] MEDS ORDERED: MIDAZOLAM 2 MG/2 ML VIAL ONE (14:03)
[2017-12-19] MEDS ORDERED: PROPOFOL 10 MG/ML 20 ML VIAL IV ONE (14:03)
--- NOTE | 2017-12-19 14:22 | P.HPIM ---
History of Present Illness H&P Date: 12/19/17 Chief Complaint: fever 57-year-old female who presented to the emergency room with a chief complaint of intermittent fevers for the last two weeks. Patient was diagnosed with a urinary tract infection last week at her PCP and was prescribed Macrobid. She reports left flank pain. Denies abdominal pain. She reports feeling overall weak and unwell. She denies shortness of breath. Denies cough. Denies chest pain or pressure. She does report some dysuria. Denies hematuria, urgency, or frequency. Denies nausea or vomiting. The patient has a history of high grade De-differentiated liposarcoma, diagnosed in December 2016. The patient underwent exploratory laparotomy in December 2016 with excision of a pelvic mass, grade 3 that extended into the margins. She completed chemotherapy in April 2017. She states she went to [facility] after that and underwent radiation treatments, which were completed in July 2017. She states she underwent the second phase of surgery for her tumor resection in September 2017. She has an ileostomy, which she reports was performed in September 2017. She had a mediport that was removed earlier this year. She apparently also had paracentesis completed twice since her surgery in September due to ascites fluid. She reports she had a central line placed during her hospitalization and developed a blood clot in the vessel. She reports she was started on Xarelto and was told she is to continue it for three months. She has a history of a double J stent insertion to the left ureter which has since been removed. The patient also has a history of asthma, diabetes mellitus, hypertension, GERD , hyperlipidemia, hypertension, and osteoarthritis. CTA chest: Negative for pulmonary embolism CT abdomen and pelvis: Large obstructing calculus in the mid left ureter with significant left-sided hydronephrosis and proximal hydroureter. There has been removal of the left ureteral stent compared to exam. There is a large fluid collection in the presacral region of the pelvis consistent with hematoma or abscess or seroma that is smaller than the old computed tomography scan. There is slight improvement in inflammatory changes in the pelvis and with Straining compared to old exam. Laboratory data: WBC 6.8. Hemoglobin 10.7. Platelet count 341. Sodium 141. Potassium 3.8. BUN 14. Creatinine 0.80. Glucose 226. LFTs and pancreatic enzymes within normal limits Lactic acid: 1.2 Urinalysis reveals: Clear yellow urine, pH 6.5, 1+ proteinuria, 3+ glucose, trace blood, large leukocyte esterase, RBC 13, WBC 74 The patient was admitted to the hospital under the care of Dr. Montero. Consultations were placed to urology. Review of Systems Those systems with pertinent positive or pertinent negative responses have been documented in the HPI Past Medical History Past Medical History: Asthma, Cancer, Diabetes Mellitus, Fibromyalgia, GERD/ Reflux, Hyperlipidemia, Hypertension, Osteoarthritis (OA), Renal Disease Additional Past Medical History / Comment(s): Liposarcoma 12/31/16 with pelvic mass removal, IDDM type II, L elbow fracture-surgery/bone removal, arthritis bilateral knees/shoulders/L elbow, DDD- cervical spine and upper back, lower spinal stenosis, bilateral tinnitis, neuropathy chin and arms at times. History of Any Multi-Drug Resistant Organisms: None Reported Past Surgical History: Adenoidectomy, Appendectomy, Bowel Resection, Section, Hysterectomy, Orthopedic Surgery, Tonsillectomy Additional Past Surgical History / Comment(s): Exploratory lap with pelvic mass removal, port placement, kidney stent/removed, D&C, right lateral salpingo- oophorectomy, colonoscopy, umbilical hernia repair, L knee arthroscopy, L elbow implant then bone removal, third molar removal Past Anesthesia/Blood Transfusion Reactions: Postoperative Nausea & Vomiting ( PONV) Past Psychological History: Anxiety Additional Psychological History / Comment(s): Pt resides with her spouse and currently 2 children at home and another child at college. She is independent. She states she has some issues with anxiety, especially at night time. She uses xanax which helps. Smoking Status: Never smoker Past Alcohol Use History: None Reported Past Drug Use History: None Reported - Past Family History Mother Family Medical History: Cancer Additional Family Medical History / Comment(s): eye, heart disease Father Additional Family Medical History / Comment(s): ALS, . Sister(s) Additional Family Medical History / Comment(s): ALS - Medications and Allergies Home Medications Medication Instructions Recorded Confirmed Type ALPRAZolam [Xanax] 0.25 mg PO DAILY PRN 12/31/16 12/18/17 History Albuterol Sulfate [Proair Hfa] 2 puff INHALATION RT-Q6H PRN 12/31/16 12/18/17 History Atorvastatin [Lipitor] 20 mg PO HS 12/31/16 12/18/17 History Famotidine [Pepcid] 20 mg PO DAILY 12/31/16 12/18/17 History Fenofibrate [Lofibra] 160 mg PO DAILY 12/31/16 12/18/17 History Loratadine [Claritin] 10 mg PO QAM 12/31/16 12/18/17 History Montelukast [Singulair] 10 mg PO DAILY 12/31/16 12/18/17 History metFORMIN HCL ER [Glucophage Xr] 500 mg PO BID 12/31/16 12/18/17 History Docusate [Colace] 100 mg PO DAILY 10/23/17 12/18/17 History Ondansetron HCl [Zofran] 4 mg PO QID PRN 10/23/17 12/18/17 History diphenhydrAMINE [Benadryl] 25 mg PO QID PRN 10/23/17 12/18/17 History Gabapentin [Neurontin] 400 mg PO TID 12/18/17 12/18/17 History Insulin Glargine,Hum.rec.anlog 100 unit SQ HS 12/18/17 12/18/17 History [Toujeo Solostar] Insulin Glulisine [Apidra Solostar] 45 unit SQ TID-W/MEALS 12/18/17 12/18/17 History Insulin Glulisine [Apidra Solostar] See Protocol SQ HS 12/18/17 12/18/17 History Nitrofurantoin Monohyd/M-Cryst 100 mg PO Q12HR 12/18/17 12/18/17 History [Macrobid] Polyethylene Glycol 3350 [Miralax] 17 gm PO BID 12/18/17 12/18/17 History Rivaroxaban [Xarelto] 20 mg PO HS 12/19/17 12/19/17 History Allergies Allergy/AdvReac Type Severity Reaction Status Date / Time Penicillins Allergy Intermediate Dyspnea/Rolando Verified 12/19/17 13:35 h Sulfa (Sulfonamide Allergy Intermediate Rash/Hives Verified 12/19/17 13:35 Antibiotics) cefepime Allergy Mild Unknown Verified 12/19/17 13:35 artificial sweetner Allergy Severe Rash/Hives Uncoded 12/19/17 13:35 Physical Exam Vitals: Vital Signs Temp Pulse Pulse Resp BP BP Pulse Ox 12/19/17 10:02 102 F H 12/19/17 08:00 100.0 F H 96 17 133/74 96 12/19/17 04:00 98.3 F 78 18 131/84 98 12/19/17 03:14 98.6 F 77 18 130/65 97 12/19/17 01:50 98.4 F 82 16 106/57 96 12/19/17 00:35 100.3 F H 95 18 125/62 97 12/18/17 23:31 100.8 F H 92 18 127/67 98 12/18/17 22:02 100.7 F H 97 18 137/67 99 12/18/17 18:56 99.2 F 101 H 18 142/83 100 Intake and Output 12/18/17 12/19/17 12/19/17 22:59 06:59 14:59 Intake Total 150 Output Total 500 Balance 150 -500 Intake: Intake, IV Titration 150 Amount Levofloxacin 750Mg-D5w 150 Pmx 750 mg In Dextrose/ Water 1 150ml.bag @ 100 mls/hr IVPB ONCE STA Rx#: [id number] Output: Urine 500 Other: Voiding Method Toilet # Voids 1 Weight 83.461 kg 83.461 kg 83.461 kg GENERAL: This is a 57-year-old female in no apparent distress at the time of examination, however she appears uncomfortable and appears to be feeling unwell. HEENT: Head is atraumatic, normocephalic. Pupils are equal, round, and reactive to light. Sclerae anicteric. Conjunctivae are clear. Mucus membranes of the mouth are moist. Neck is supple. RESPIRATORY: Clear to ausculation. No wheezes, rales, or rhonchi. No use of accessory muscles. Patient maintaining oxygen saturation greater than 92%. No chest wall tenderness is noted on palpation or with deep breathing. CARDIOVASCULAR: Regular rate and rhythm. S1 and S2 noted. No systolic or diastolic murmur auscultated. No JVD noted. No S3 or S4 noted. GASTROINTESTINAL: No distention noted. Abdomen soft and round. Normal active bowel sounds auscultated x 4 quadrants. Ostomy noted to left lower quadrant. Left flank pain noted. INTEGUMENTARY: No cyanosis. No jaundice. No rashes noted. No cellulitis noted. EXTREMITIES: 2+ peripheral pulses. No evidence of peripheral edema. No calf tenderness noted. NEUROLOGIC: Cranial nerves II-XII intact. PSYCHIATRIC: Awake, alert, and oriented X 3. Appropriate affect. Intact judgement and insight. Results CBC & Chem 7: 12/18/17 21:05 12/18/17 21:05 Labs: Abnormal Lab Results - Last 24 Hours (Table) 12/18/17 12/18/17 12/19/17 Range/Units 21: 21:05 00:30 Hgb 10.7 L (11.4-16.0) gm/dL Hct 32.9 L (34.0-46.0) % Lymphocytes # 0.9 L (1.0-4.8) k/uL Glucose 226 H (74-99) mg/dL POC Glucose (mg/dL) (75-99) mg/dL Ur Specific [place] 1.050 H (1.001-1.035) Urine Protein 1+ H (Negative) Urine Glucose (UA) 3+ H (Negative) Urine Blood Trace H (Negative) Ur Leukocyte Esterase Large H (Negative) Urine RBC 13 H (0-5) /hpf Urine WBC 74 H (0-5) /hpf Urine WBC Clumps Few H (None) /hpf Urine Bacteria Rare H (None) /hpf Urine Mucus Rare H (None) /hpf Urine Yeast (Budding) Occasional H (None) /hpf 12/19/17 Range/Units 11:49 Hgb (11.4-16.0) gm/dL Hct (34.0-46.0) % Lymphocytes # (1.0-4.8) k/uL Glucose (74-99) mg/dL POC Glucose (mg/dL) 172 H (75-99) mg/dL Ur Specific [place] (1.001-1.035) Urine Protein (Negative) Urine Glucose (UA) (Negative) Urine Blood (Negative) Ur Leukocyte Esterase (Negative) Urine RBC (0-5) /hpf Urine WBC (0-5) /hpf Urine WBC Clumps (None) /hpf Urine Bacteria (None) /hpf Urine Mucus (None) /hpf Urine Yeast (Budding) (None) /hpf Microbiology - Last 24 Hours (Table) 12/19/17 00:30 Urine Culture - Preliminary Urine,Catheterized Thrombosis Risk Factor Assmnt - Choose All That Apply Any of the Below Risk Factors Present?: Yes Each Factor Represents 1 point: Age 41-60 years, Obesity (BMI >25) Other Risk Factors: Yes Each Risk Factor Represents 2 Points: Malignancy Each Risk Factor Represents 3 Points: History of DVT/PE Other congenital or acquired thrombophilia - If yes, enter type in comment: No Thrombosis Risk Factor Assessment Total Risk Factor Score: 7 Thrombosis Risk Factor Assessment Level: High Risk Assessment and Plan Plan: ASSESSMENT: 9mm renal calculus in the mid left ureter with hydronephrosis Recent diagnosis of urinary tract infection, treated outpatient with Macrobid History of liposarcoma, diagnosed in 2016, s/p chemotherapy and radiation History of exploratory laparotomy in December 2016 with excision of a pelvic mass History of second surgical operation for tumor resection with abdominal perineal resection of the distal colon, ileostomy creation, and resection of distal left ureter, September 2017 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 Patient scheduled for cystoscopy with placement of left double J catheter today Hold Xarelto until after procedure then resume NPO until after procedure Patient does not have her home insulin with her at this time. Continue with Novolog sliding scale at this time. If patients brings medication in, may resume patients home insulin Hold metformin until morning of 12/21/[address] contrast Pain control: continue morphine and dilaudid at this time Home meds as appropriate Monitor labs GI prophylaxis: Pepcid 20mg PO daily DVT prophylaxis: SCDs to bilateral lower extremities Monitor vital signs and address as appropriate Discharge planning: Patient to return home when stable Further recommendations pending patient's course Nurse practitioner note has been reviewed by physician. Signing provider agrees with the documented findings, assessment, and plan of care.
[2017-12-19] MEDS: LACTATED RINGERS 1,000 ML IV ONE ×3 (14:30→15:15)
--- NOTE | 2017-12-19 14:45 | P.OP ---
Date of Procedure: 12/19/17 Preoperative Diagnosis: Left hydronephrosis secondary to left ureteral calculus Postoperative Diagnosis: Same Procedure(s) Performed: Cystoscopy with left ureteral stent insertion Anesthesia: SRAVANTHI Surgeon: Marc Moya Estimated Blood Loss (ml): 0 IV fluids (ml): 200 Pathology: none sent Condition: stable Disposition: PACU Indications for Procedure: The patient is a 57-year-old white female who underwent removal of a pelvic liposarcoma last year. At that time, it was necessary to excise the distal left ureter, and a reimplant was performed utilizing a psoas hitch. She now presents with a febrile UTI, and a computed tomography scan shows left hydronephrosis due to a 9 mm left distal ureteral calculus. She is receiving IV antibiotics and comes for stent placement. Operative Findings: Hydronephrotic gonzalez, with cloudy urine draining from the left renal pelvis. Description of Procedure: The patient was taken to the operating room and placed in the dorsolithotomy position, with legs supported in Roverto stirrups. The external genitalia was prepped and draped sterilely. The 30 lens was used to introduce the 19-Polish Stortz cystoscopic sheath through the urethra and into the bladder under direct vision. The bladder was examined in its entirety. The right ureteral orifice appeared normal, and was orthotopic in location. No tumors or foreign bodies were seen. The left ureteral orifice was located at the left bladder dome. A 0.038 inch Glidewire was passed through the cystoscope. The left ureteral orifice was cannulated, and with some difficulty the Glidewire was slowly advanced beyond resistance just proximal to the ureteral orifice. The Glidewire was then easily advanced up to the renal pelvis. A 24 cm, 6-Polish double-J ureteral stent was placed over the wire. Proper stent positioning was verified fluoroscopically and endoscopically. A "hydronephrotic gonzalez" was noted , as cloudy urine drained from the stent. With the beak of the cystoscope immediately adjacent to the distal end of the stent, urine was collected and sent for culture and sensitivity. The bladder was emptied and the cystoscope removed. The patient tolerated the procedure well was taken to the recovery room in stable condition.
--- NOTE | 2017-12-19 15:26 | FL ---
Fluoroscopy HISTORY: Pain 10 seconds fluoroscopy time supplied to the referring clinician. 3 intraoperative C-arm images docum ent the procedure. See dictated report from urology.
[2017-12-19 16:40] LABS: Glucose,Whole Blood 180 mg/dL (75-99)
[2017-12-19 20:26] LABS: Hemoglobin A1C 8.3 % (4.0-6.0)
[2017-12-19 21:12] LABS: Glucose,Whole Blood 201 mg/dL (75-99)
[2017-12-19] MEDS: ATORVASTATIN 20 MG TAB PO SCH (21:20)
[2017-12-20] MEDS: LEVOFLOXACIN 750MG-D5W PMX 750 MG in DEXTROSE/WATER 1 150ML.BAG IVPB SCH (03:44)
[2017-12-20] MEDS: ACETAMINOPHEN IV (For NPO) 1,000 MG in EMPTY BAG 1 BAG IVPB SCH (06:18)
[2017-12-20] MEDS: HYDROmorphone 0.5 MG/0.5 ML SYRINGE IVP PRN ×2 (06:29→10:24)
[2017-12-20 06:50] LABS: Glucose,Whole Blood 175 mg/dL (75-99)
[2017-12-20] MEDS: INSULIN ASPART 100 UNIT/ML 1 ML 10 ML VIAL SQ SCH ×4 (06:56→22:13)
[2017-12-20] MEDS: GABAPENTIN 400 MG CAP PO SCH ×3 (09:31→22:13)
[2017-12-20] MEDS: DOCUSATE 100 MG CAP PO SCH (09:33)
[2017-12-20] MEDS: LORATADINE 10 MG TAB PO SCH (09:33)
[2017-12-20] MEDS: POLYETHYLENE GLYCOL 3350 17 GM POWD.PACK PO SCH ×2 (09:33→22:13)
[2017-12-20] MEDS: SODIUM CHLORIDE 0.9% 1,000 ML IV SCH ×2 (09:37→20:20)
[2017-12-20] MEDS ORDERED: MONTELUKAST 10 MG TAB PO SCH (09:44)
[2017-12-20] MEDS ORDERED: FENOFIBRATE 160 MG TAB PO SCH (09:44)
[2017-12-20] MEDS ORDERED: FAMOTIDINE 20 MG TAB PO SCH (09:44)
--- NOTE | 2017-12-20 11:02 | P.PN ---
Subjective Progress Note Date: 12/20/17 57-year-old female who presented to the emergency room with a chief complaint of intermittent fevers for the last two weeks. Patient was diagnosed with a urinary tract infection last week at her PCP and was prescribed Macrobid. She reports left flank pain. Denies abdominal pain. She reports feeling overall weak and unwell. She denies shortness of breath. Denies cough. Denies chest pain or pressure. She does report some dysuria. Denies hematuria, urgency, or frequency. Denies nausea or vomiting. The patient has a history of high grade De-differentiated liposarcoma, diagnosed in December 2016. The patient underwent exploratory laparotomy in December 2016 with excision of a pelvic mass, grade 3 that extended into the margins. She completed chemotherapy in April 2017. She states she went to of after that and underwent radiation treatments, which were completed in July 2017. She states she underwent the second phase of surgery for her tumor resection in September 2017. She has an ileostomy, which she reports was performed in September 2017. She had a mediport that was removed earlier this year. She apparently also had paracentesis completed twice since her surgery in September due to ascites fluid. She reports she had a central line placed during her hospitalization and developed a blood clot in the vessel. She reports she was started on Xarelto and was told she is to continue it for three months. She has a history of a double J stent insertion to the left ureter which has since been removed. The patient also has a history of asthma, diabetes mellitus, hypertension, GERD , hyperlipidemia, hypertension, and osteoarthritis. CTA chest: Negative for pulmonary embolism CT abdomen and pelvis: Large obstructing calculus in the mid left ureter with significant left-sided hydronephrosis and proximal hydroureter. There has been removal of the left ureteral stent compared to exam. There is a large fluid collection in the presacral region of the pelvis consistent with hematoma or abscess or seroma that is smaller than the old computed tomography scan. There is slight improvement in inflammatory changes in the pelvis and with Straining compared to old exam. Laboratory data: WBC 6.8. Hemoglobin 10.7. Platelet count 341. Sodium 141. Potassium 3.8. BUN 14. Creatinine 0.80. Glucose 226. LFTs and pancreatic enzymes within normal limits Lactic acid: 1.2 Urinalysis reveals: Clear yellow urine, pH 6.5, 1+ proteinuria, 3+ glucose, trace blood, large leukocyte esterase, RBC 13, WBC 74 The patient was admitted to the hospital under the care of Dr. Montero. Consultations were placed to urology. 12/20/2017 Patient seen and examined at the bedside. Patient is requesting to be discharged home today, however she was febrile last night and still requiring IV pain medications. Patient agreeable to transitioning to oral pain medications at this time and re-evaluating her this afternoon. Patient underwent cystoscopy yesterday with left urethral stent placement. Patient does report improvement in overall pain. Blood cultures are negative at the 24 hour andry. Urine culture is currently pending. The patient remains on Levaquin. Patient's temperature this morning is 98.4F. T-max over the last 24 hours is 101.2F. Patient is on room air with oxygen saturations of 94%. Blood pressure this morning is 104/65. Objective - Vital Signs Vital signs: Vital Signs Temp 98.4 F 12/20/17 08:05 Pulse 85 12/20/17 08:05 Resp 17 12/20/17 08:05 BP 104/65 12/20/17 08:05 Pulse Ox 94 L 12/20/17 08:05 Intake & Output 12/19/17 12/20/17 12/20/17 18:59 06:59 18:59 Intake Total 300 Output Total 500 1350 Balance -200 -1350 Weight 83.461 kg Intake: IV 300 Output: Urine 500 1350 Estimated Blood Loss 0 Other: Voiding Method Bedside Commode Bedside Commode Bedside Commode Diaper Diaper Diaper Incontinent Incontinent Incontinent # Voids 1 1 - Exam GENERAL: This is a 57-year-old female in no apparent distress at the time of examination. Pleasant and cooperative. HEENT: Head is atraumatic, normocephalic. Pupils are equal, round, and reactive to light. Sclerae anicteric. Conjunctivae are clear. Mucus membranes of the mouth are moist. Neck is supple. RESPIRATORY: Diminished. Fine rales noted. No use of accessory muscles. Patient maintaining oxygen saturation greater than 92%. No chest wall tenderness is noted on palpation or with deep breathing. CARDIOVASCULAR: Regular rate and rhythm. S1 and S2 noted. No systolic or diastolic murmur auscultated. No JVD noted. No S3 or S4 noted. GASTROINTESTINAL: No distention noted. Abdomen soft and round. Normal active bowel sounds auscultated x 4 quadrants. Ostomy noted to left lower quadrant. INTEGUMENTARY: No cyanosis. No jaundice. No rashes noted. No cellulitis noted. EXTREMITIES: 2+ peripheral pulses. No lower extremity edema noted. No calf tenderness noted. NEUROLOGIC: Cranial nerves II-XII intact. PSYCHIATRIC: Awake, alert, and oriented X 3. Appropriate affect. Intact judgement and insight. - Labs CBC & Chem 7: 12/18/17 21:05 12/18/17 21:05 Labs: Abnormal Lab Results - Last 24 Hours (Table) 12/18/17 12/19/17 12/19/17 Range/Units 21:05 11:49 16:38 POC Glucose (mg/dL) 172 H 180 H (75-99) mg/dL Hemoglobin A1c 8.3 H (4.0-6.0) % 12/19/17 12/20/17 Range/Units 21:06 06:48 POC Glucose (mg/dL) 201 H 175 H (75-99) mg/dL Hemoglobin A1c (4.0-6.0) % Microbiology - Last 24 Hours (Table) 12/18/17 21:05 Blood Culture - Preliminary Blood No Growth after 24 hours 12/19/17 14:34 Urine Culture - Preliminary Urine,Ureter 12/19/17 00:30 Urine Culture - Preliminary Urine,Catheterized Assessment and Plan Plan: ASSESSMENT: 9mm renal calculus in the mid left ureter with hydronephrosis, s/p cystoscopy with left urethral stent placement Recent diagnosis of urinary tract infection, treated outpatient with Macrobid History of liposarcoma, diagnosed in 2016, s/p chemotherapy and radiation History of exploratory laparotomy in December 2016 with excision of a pelvic mass History of second surgical operation for tumor resection with abdominal perineal resection of the distal colon, ileostomy creation, and resection of distal left ureter, September 2017 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 Appreciate recommendations and input Resume Xarelto Tylenol PRN for fevers. Await results of cultures Continue Levaquin and IV fluids Try to avoid IV narcotics if possible. Lawrence 5mg Q4 hours PRN ordered. Increase activity. Up to chair today and ambulating Incentive spirometer 10 times an hour while awake Patient does not have her home insulin with her at this time. Continue with Novolog sliding scale at this time. If patients brings medication in, may resume patients home insulin Hold metformin until morning of 12/21/[address] contrast Pain control: continue morphine and dilaudid at this time Home meds as appropriate Monitor labs GI prophylaxis: Pepcid 20mg PO daily DVT prophylaxis: SCDs to bilateral lower extremities Monitor vital signs and address as appropriate Discharge planning: Patient to return home when stable Further recommendations pending patient's course Nurse practitioner note has been reviewed by physician. Signing provider agrees with the documented findings, assessment, and plan of care.
[2017-12-20 11:35] LABS: Glucose,Whole Blood 149 mg/dL (75-99)
[2017-12-20] MEDS: HYDROcodone/APAP 5-325MG 1 EACH TAB PO PRN ×3 (12:10→20:34)
[2017-12-20 15:13] LABS: ALT 31 U/L (9-52); AST 28 U/L (14-36); Albumin 2.9 g/dL (3.5-5.0); Alkaline Phosphatase 97 U/L (38-126); Anion Gap 13 mmol/L; Blood Urea Nitrogen 11 mg/dL (7-17); Calcium 8.6 mg/dL (8.4-10.2); Carbon Dioxide 23 mmol/L (22-30); Chloride 106 mmol/L (98-107); Glucose 172 mg/dL (74-99); Potassium 3.4 mmol/L (3.5-5.1); Sodium 142 mmol/L (137-145); Total Bilirubin 0.2 mg/dL (0.2-1.3); Total Protein 5.6 g/dL (6.3-8.2)
[2017-12-20 15:25] LABS: Basophils % (A) 0 %; Eosinophils # (A) 0.1 k/uL (0-0.7); Eosinophils % (A) 3 %; HCT 28.5 % (34.0-46.0); Hypochromasia Marked; Lymphocytes # (A) 0.6 k/uL (1.0-4.8); Lymphocytes % (A) 14 %; MCH 25.9 pg (25.0-35.0); MCHC 31.5 g/dL (31.0-37.0); MCV 82.2 fL (80.0-100.0); Mean Platelet Volume 6.6; Monocytes # (A) 0.3 k/uL (0-1.0); Monocytes % (A) 6 %; Neutrophils # (A) 3.4 k/uL (1.3-7.7); Neutrophils % (A) 75 %; Platelet Count 254 k/uL (150-450); Poikilocytosis Slight; RBC 3.47 m/uL (3.80-5.40); RDW 14.4 % (11.5-15.5); WBC 4.5 k/uL (3.8-10.6)
--- NOTE | 2017-12-20 16:23 | P.PN ---
Progress Note - Text Progress Note Date: 12/20/17 Patient reports back and shoulder pain. Di=678.2. Currently afebrile. Initial urine and blood cultures negative. C & S sent 12/19 at time of cysto pending. Continue antibiotics.
[2017-12-20 17:21] LABS: Glucose,Whole Blood 194 mg/dL (75-99)
[2017-12-20] MEDS: POTASSIUM CHLORIDE ER 20 MEQ TAB.ER PO SCH ×2 (17:41→18:37)
[2017-12-20] MEDS ORDERED: RIVAROXABAN 20 MG TAB PO SCH (21:00)
[2017-12-20 21:51] LABS: Glucose,Whole Blood 195 mg/dL (75-99)
[2017-12-20] MEDS: ATORVASTATIN 20 MG TAB PO SCH (22:12)
[2017-12-21] MEDS: LEVOFLOXACIN 750MG-D5W PMX 750 MG in DEXTROSE/WATER 1 150ML.BAG IVPB SCH (03:36)
[2017-12-21] MEDS: HYDROcodone/APAP 5-325MG 1 EACH TAB PO PRN ×3 (03:39→13:44)
[2017-12-21 06:49] LABS: Basophils % (A) 0 %; Eosinophils # (A) 0.2 k/uL (0-0.7); Eosinophils % (A) 4 %; HCT 27.1 % (34.0-46.0); HGB 8.3 gm/dL (11.4-16.0); Hypochromasia Marked; Lymphocytes # (A) 0.7 k/uL (1.0-4.8); Lymphocytes % (A) 15 %; MCH 25.2 pg (25.0-35.0); MCHC 30.6 g/dL (31.0-37.0); MCV 82.4 fL (80.0-100.0); Mean Platelet Volume 6.6; Monocytes # (A) 0.2 k/uL (0-1.0); Monocytes % (A) 5 %; Neutrophils # (A) 3.2 k/uL (1.3-7.7); Neutrophils % (A) 74 %; Platelet Count 244 k/uL (150-450); Poikilocytosis Slight; RBC 3.28 m/uL (3.80-5.40); RDW 14.8 % (11.5-15.5); WBC 4.3 k/uL (3.8-10.6)
[2017-12-21] MEDS: SODIUM CHLORIDE 0.9% 1,000 ML IV SCH (06:56)
[2017-12-21 06:58] LABS: Anion Gap 12 mmol/L; Blood Urea Nitrogen 9 mg/dL (7-17); Calcium 8.6 mg/dL (8.4-10.2); Carbon Dioxide 23 mmol/L (22-30); Chloride 107 mmol/L (98-107); Glucose 176 mg/dL (74-99); Potassium 3.6 mmol/L (3.5-5.1); Sodium 142 mmol/L (137-145)
[2017-12-21 07:34] LABS: Glucose,Whole Blood 175 mg/dL (75-99)
[2017-12-21] MEDS: POLYETHYLENE GLYCOL 3350 17 GM POWD.PACK PO SCH (08:27)
[2017-12-21] MEDS: DOCUSATE 100 MG CAP PO SCH (08:27)
[2017-12-21] MEDS: INSULIN ASPART 100 UNIT/ML 1 ML 10 ML VIAL SQ SCH ×2 (08:29→11:43)
[2017-12-21] MEDS: GABAPENTIN 400 MG CAP PO SCH (09:00)
[2017-12-21] MEDS: LORATADINE 10 MG TAB PO SCH (09:11)
--- NOTE | 2017-12-21 10:07 | P.DS ---
Providers Date of admission: 12/19/17 03:26 Expected date of discharge: 12/21/17 Attending physician: Carlos Ling Consults: 12/19/17 02:32 Consult Physician Stat Consulting Provider: Neno Kerns Consult Reason/Comments: Septic Kidney Stone Do you want consulting provider notified?: Already Contacted Primary care physician: [facility] Course: 57-year-old female who presented to the emergency room with a chief complaint of intermittent fevers for the last two weeks. Patient was diagnosed with a urinary tract infection last week at her PCP and was prescribed Macrobid. She reports left flank pain. Denies abdominal pain. She reports feeling overall weak and unwell. She denies shortness of breath. Denies cough. Denies chest pain or pressure. She does report some dysuria. Denies hematuria, urgency, or frequency. Denies nausea or vomiting. The patient has a history of high grade De-differentiated liposarcoma, diagnosed in December 2016. The patient underwent exploratory laparotomy in December 2016 with excision of a pelvic mass, grade 3 that extended into the margins. She completed chemotherapy in April 2017. She states she went to [facility] after that and underwent radiation treatments, which were completed in July 2017. She states she underwent the second phase of surgery for her tumor resection in September 2017. She has an ileostomy, which she reports was performed in September 2017. She had a mediport that was removed earlier this year. She apparently also had paracentesis completed twice since her surgery in September due to ascites fluid. She reports she had a central line placed during her hospitalization and developed a blood clot in the vessel. She reports she was started on Xarelto and was told she is to continue it for three months. She has a history of a double J stent insertion to the left ureter which has since been removed. The patient also has a history of asthma, diabetes mellitus, hypertension, GERD , hyperlipidemia, hypertension, and osteoarthritis. CTA chest: Negative for pulmonary embolism CT abdomen and pelvis: Large obstructing calculus in the mid left ureter with significant left-sided hydronephrosis and proximal hydroureter. There has been removal of the left ureteral stent compared to exam. There is a large fluid collection in the presacral region of the pelvis consistent with hematoma or abscess or seroma that is smaller than the old computed tomography scan. There is slight improvement in inflammatory changes in the pelvis and with Straining compared to old exam. Laboratory data: WBC 6.8. Hemoglobin 10.7. Platelet count 341. Sodium 141. Potassium 3.8. BUN 14. Creatinine 0.80. Glucose 226. LFTs and pancreatic enzymes within normal limits Lactic acid: 1.2 Urinalysis reveals: Clear yellow urine, pH 6.5, 1+ proteinuria, 3+ glucose, trace blood, large leukocyte esterase, RBC 13, WBC 74 The patient was admitted to the hospital under the care of Dr. Montero. Consultations were placed to urology. 12/20/2017 Patient seen and examined at the bedside. Patient is requesting to be discharged home today, however she was febrile last night and still requiring IV pain medications. Patient agreeable to transitioning to oral pain medications at this time and re-evaluating her this afternoon. Patient underwent cystoscopy yesterday with left urethral stent placement. Patient does report improvement in overall pain. Blood cultures are negative at the 24 hour andry. Urine culture is currently pending. The patient remains on Levaquin. Patient's temperature this morning is 98.4F. T-max over the last 24 hours is 101.2F. Patient is on room air with oxygen saturations of 94%. Blood pressure this morning is 104/65. 12/21/2017 Patient seen and examined at the bedside. Patient clinically appears significantly improved this morning. She has been afebrile for over 24 hours. Urine culture is negative. She has received Levaquin daily while in the hospital. WBC is within normal limits. She has had not required IV pain medications. She is receiving Chaseley which she states is controlling her pain. Patient states she was recently given a prescription for Chaseley [address] Ling and she will continue that when she is discharged from the hospital and does not require a prescription for narcotics at this time. She is very anxious to be discharged home. She was cleared for discharge from a medical standpoint after she is cleared by Dr. Moya. 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 Signing provider agrees with the documented findings, assessment, and plan of care. Patient Condition at Discharge: Stable Plan - Discharge Summary Discharge Rx Participant: No New Discharge Prescriptions: Continue metFORMIN HCL ER [Glucophage Xr] 500 mg PO BID ALPRAZolam [Xanax] 0.25 mg PO DAILY PRN PRN Reason: Anxiety/Insomnia Albuterol Sulfate [Proair Hfa] 2 puff INHALATION RT-Q6H PRN PRN Reason: Shortness Of Breath Fenofibrate [Lofibra] 160 mg PO DAILY Montelukast [Singulair] 10 mg PO DAILY Famotidine [Pepcid] 20 mg PO DAILY Atorvastatin [Lipitor] 20 mg PO HS Loratadine [Claritin] 10 mg PO QAM diphenhydrAMINE [Benadryl] 25 mg PO QID PRN PRN Reason: Allergy Symptoms Docusate [Colace] 100 mg PO DAILY Ondansetron HCl [Zofran] 4 mg PO QID PRN PRN Reason: Nausea Insulin Glulisine [Apidra Solostar] See Protocol SQ HS Polyethylene Glycol 3350 [Miralax] 17 gm PO BID Insulin Glulisine [Apidra Solostar] 45 unit SQ TID-W/MEALS Insulin Glargine,Hum.rec.anlog [Toujeo Solostar] 100 unit SQ HS Gabapentin [Neurontin] 400 mg PO TID Rivaroxaban [Xarelto] 20 mg PO HS Discontinued Nitrofurantoin Monohyd/M-Cryst [Macrobid] 100 mg PO Q12HR Discharge Medication List ALPRAZolam [Xanax] 0.25 mg PO DAILY PRN 12/31/16 [History] Albuterol Sulfate [Proair Hfa] 2 puff INHALATION RT-Q6H PRN 12/31/16 [History] Atorvastatin [Lipitor] 20 mg PO HS 12/31/16 [History] Famotidine [Pepcid] 20 mg PO DAILY 12/31/16 [History] Fenofibrate [Lofibra] 160 mg PO DAILY 12/31/16 [History] Loratadine [Claritin] 10 mg PO QAM 12/31/16 [History] Montelukast [Singulair] 10 mg PO DAILY 12/31/16 [History] metFORMIN HCL ER [Glucophage Xr] 500 mg PO BID 12/31/16 [History] Docusate [Colace] 100 mg PO DAILY 10/23/17 [History] Ondansetron HCl [Zofran] 4 mg PO QID PRN 10/23/17 [History] diphenhydrAMINE [Benadryl] 25 mg PO QID PRN 10/23/17 [History] Gabapentin [Neurontin] 400 mg PO TID 12/18/17 [History] Insulin Glargine,Hum.rec.anlog [Toujeo Solostar] 100 unit SQ HS 12/18/17 [ History] Insulin Glulisine [Apidra Solostar] 45 unit SQ TID-W/MEALS 12/18/17 [History] Insulin Glulisine [Apidra Solostar] See Protocol SQ HS 12/18/17 [History] Polyethylene Glycol 3350 [Miralax] 17 gm PO BID 12/18/17 [History] Rivaroxaban [Xarelto] 20 mg PO HS 12/19/17 [History] Follow up Appointment(s)/Referral(s): Marc Moya MD [STAFF PHYSICIAN] - 1 Week [facility], [NON-STAFF] - Carlos Ling MD [Primary Care Provider] - 1-2 days Discharge Disposition: HOME SELF-CARE
[2017-12-21 11:35] LABS: Glucose,Whole Blood 153 mg/dL (75-99)
[2017-12-21 12:39] VITALS: BP 122/70; PULSE 95; RESP 16; TEMP 98.3
== END 2017-12-21 14:02 | disposition home health service (06) | DRG 690 ==
LOC: EC 18:49 → 6PED 12-19 03:26
PROVIDERS: ADMIT Family Medicine; ATTEND Family Medicine
PROC: 0T778DZ Dilation of Left Ureter with Intraluminal Device, Via Natural or Artificial Opening Endoscopic (ICD-10-PCS; principal; 2017-12-19 08:15)
DX: N13.6 Pyonephrosis (principal); E11.40 Type 2 diabetes mellitus with diabetic neuropathy, unspecified; I10 Essential (primary) hypertension; E78.5 Hyperlipidemia, unspecified; J45.909 Unspecified asthma, uncomplicated; M79.7 Fibromyalgia; M50.30 Other cervical disc degeneration, unspecified cervical region; M17.0 Bilateral primary osteoarthritis of knee; F41.9 Anxiety disorder, unspecified; K21.9 Gastro-esophageal reflux disease without esophagitis; M48.00 Spinal stenosis, site unspecified; Z79.4 Long term (current) use of insulin; Z79.01 Long term (current) use of anticoagulants; Z79.899 Other long term (current) drug therapy; Z92.21 Personal history of antineoplastic chemotherapy; Z92.3 Personal history of irradiation; Z85.89 Personal history of malignant neoplasm of other organs and systems; Z93.2 Ileostomy status; Z90.49 Acquired absence of other specified parts of digestive tract; Z90.6 Acquired absence of other parts of urinary tract; Z86.718 Personal history of other venous thrombosis and embolism; Z87.81 Personal history of (healed) traumatic fracture; Z90.710 Acquired absence of both cervix and uterus; Z90.79 Acquired absence of other genital organ(s); Z90.721 Acquired absence of ovaries, unilateral; Z87.448 Personal history of other diseases of urinary system; Z96.622 Presence of left artificial elbow joint; Z88.1 Allergy status to other antibiotic agents; Z88.0 Allergy status to penicillin; Z88.2 Allergy status to sulfonamides; Z91.018 Allergy to other foods; Z82.49 Family history of ischemic heart disease and other diseases of the circulatory system; Z82.0 Family history of epilepsy and other diseases of the nervous system; Z80.9 Family history of malignant neoplasm, unspecified
CPT/HCPCS: 36415; 51702; 71275; 74177; 80048; 80053; 81001; 82150; 83036; 83605; 83690; 85025; 87040; 87086; 94640; 96361; 96365; 96375; 96376; 99284

== ENCOUNTER → 2018-01-05 | Outpatient (CLI) | payer MEDICAID ==
[2018-01-05 15:41] LABS: Basophils % (A) 1 %; Eosinophils # (A) 0.2 k/uL (0-0.7); Eosinophils % (A) 3 %; HCT 30.3 % (34.0-46.0); HGB 10.1 gm/dL (11.4-16.0); Hypochromasia Slight; Lymphocytes # (A) 0.9 k/uL (1.0-4.8); Lymphocytes % (A) 17 %; MCH 26.2 pg (25.0-35.0); MCHC 33.1 g/dL (31.0-37.0); MCV 79.2 fL (80.0-100.0); Mean Platelet Volume 6.5; Microcytosis Slight; Monocytes # (A) 0.3 k/uL (0-1.0); Monocytes % (A) 6 %; Neutrophils # (A) 3.7 k/uL (1.3-7.7); Neutrophils % (A) 72 %; Platelet Count 290 k/uL (150-450); RBC 3.83 m/uL (3.80-5.40); RDW 15.8 % (11.5-15.5); WBC 5.2 k/uL (3.8-10.6)
[2018-01-05 15:47] LABS: Appearance,Urine Turbid (Clear); Bilirubin,Urine Negative (Negative); Blood,Urine Moderate (Negative); Color,Urine Light Yellow; Glucose,Urine (UA) 3+ (Negative); Ketones,Urine Negative (Negative); Leukocyte Esterase,Urine Large (Negative); Mucus,Urine Rare /hpf; Nitrite,Urine Negative (Negative); Protein,Urine 1+ (Negative); RBC,Urine 66 /hpf (0-5); Specific Gravity,Urine 1.012 (1.001-1.035); Urobilinogen,Urine <2.0 mg/dL (<2.0); WBC,Urine >182 /hpf (0-5)
== END | disposition home or self-care (01) ==
LOC: LABWHC1 14:51
PROVIDERS: ATTEND Nurse Practitioner Women's Health
DX: D64.9 Anemia, unspecified (principal); N39.0 Urinary tract infection, site not specified
CPT/HCPCS: 36415; 81001; 85025; 87086

== ENCOUNTER → 2018-01-10 | Outpatient (CLI) | payer MEDICAID ==
--- NOTE | 2018-01-11 09:46 | CT ---
EXAMINATION TYPE: CT ChestAbdPelvis w con DATE OF EXAM: 01/10/2018 COMPARISON: 12/18/2017 and 04/17/2017 HISTORY: Follow up for dedifferentiated liposarcoma. CT DLP: 2362 mGycm. Automated Exposure Control for Dose Reduction was Utilized. CONTRAST: CT scan of the thorax, abdomen and pelvis is performed with IV Contrast, patient injected with 100ml mL of Isovue 300. FINDINGS: LUNGS: In comparison to the exam of 04/17/2017 there is stability of the 5 mm right upper lobe pulmona ry nodule on series 4 image 19. There are also two unchanged 2 mm pulmonary nodules within the right upper lobe on series 4 image 28. The right middle lobe solid 4 mm pulmonary nodule is unchanged on im age 35 as is the right lower lobe 3 mm pulmonary nodule on the same image. Left lower lobe pulmonary nodules on image 28 and 29 are also unchanged measuring approximately 3 mm and 4 mm respectively. Als o retrospectively there is a right basilar pulmonary nodule on series 4 image 38 measuring 3 mm. The lungs are grossly clear, there is no concerning parenchymal mass or nodule identified. There is no pleural effusion or pneumothorax seen. The tracheobronchial tree is patent. MEDIASTINUM: There are no greater than 1 cm hilar or mediastinal lymph nodes. No pericardial effusi on is seen. No axillary adenopathy. OTHER: Right-sided Mediport has been removed in the interim. LIVER/GB: The liver is elongated extending into the left upper quadrant with 2 mm hypoattenuated foca l lesion on series 3 image 50, retrospectively unchanged from the prior. This is too small to accurat kirti characterize. Gallbladder is unremarkable with no cholelithiasis seen. PANCREAS: No significant abnormality is seen. No ductal dilatation. SPLEEN: No significant abnormality is seen. ADRENALS: No significant abnormality is seen. KIDNEYS: Left ureteral stent is in place with minimal left-sided hydronephrosis and proximal hydroure ter. Distal aspect is coiled within the urinary bladder. There is a right lateral diverticulum from t he urinary bladder that measures 1.1 cm. There is very mild asymmetric enhancement, delayed on the le ft in comparison to the right kidney. Stable right lower pole anterior cortical lesion is too small t o accurately characterize. Incidentally noted retroaortic left renal vein. BOWEL: Diverting left mid abdominal colostomy is present with resection of the distal colon. Small david wel is nondilated. Moderate amount retained colonic stool seen throughout the also nondilated colon. New subcutaneous fluid collection is seen anterior to the rectus abdominal muscle measuring 5.0 cm in length suggestive of a postsurgical seroma. No inflammatory change surrounding this to suggest absce ss. No internal foci of air. GENITAL ORGANS: Uterus is surgically absent. LYMPH NODES: Stable largest lymph nodes on series 3 image 80 are unchanged from the prior and measure up to 5 mm in short axis. Few other scattered nonenlarged periaortic and pericaval lymph nodes are a lso unchanged from the prior. No greater than 1cm abdominal or pelvic lymph nodes are appreciated. OSSEOUS STRUCTURES: Minimal multilevel degenerative changes of the spine, recurrent iliac joints and femoral acetabular joints are noted. No new suspicious osseous lesions. OTHER: There is been surgical resection of the previously seen poorly differentiated retroperitoneal liposarcoma within the presacral space. There is a focal fluid collection at the postsurgical site me asuring 5.1 x 2.5 x 6.7 cm in anterior posterior by transverse by craniocaudal dimension with surroun ding phlegmonous changes and a left eccentric thickened soft tissue rim. Surgical clips are noted wit hin the pelvis. IMPRESSION: 1. Interval surgical resection of the previously seen retroperitoneal liposarcoma within the presacra l space and mesorectal fat. Replacing this there is a new thick-walled fluid collection measuring 5. 1 x 2.5 x 6.7 cm, likely postoperative seroma although short-term follow-up is recommended to ensure decrease in size and exclude recurrence. No new adenopathy within the chest, abdomen, or pelvis or ev idence of new visceral metastasis. 2. Stability of the multiple subcentimeter solid pulmonary nodules in comparison to the exam of 2016. 3. New simple fluid collection within the ventral abdominal wall subcutaneous soft tissue suggestive of a seroma. 4. Left ureteral stent appears appropriately placed with mild left-sided hydronephrosis remaining and slightly diminished/delayed enhancement of the left kidney in comparison to the right suggesting min imal decreased function.
== END | disposition home or self-care (01) ==
LOC: RADCTMAIN 17:54
PROVIDERS: ATTEND Student in an Organized Health Care Education/Training Program
DX: C49.9 Malignant neoplasm of connective and soft tissue, unspecified (principal); N13.30 Unspecified hydronephrosis; R91.8 Other nonspecific abnormal finding of lung field; Z98.890 Other specified postprocedural states
CPT/HCPCS: 82565; 84520; 71260; 74177; 36415; Q9967

== ENCOUNTER 2018-01-11 14:24 | Inpatient (IN) | payer MEDICAID ==
[2018-01-11] MEDS ORDERED: ACETAMINOPHEN TAB 500 MG TAB PO STA (15:00)
[2018-01-11] MEDS ORDERED: SODIUM CHLORIDE 0.9% 500 ML IV STA (15:00)
[2018-01-11] MEDS ORDERED: IBUPROFEN 600 MG TAB PO STA (15:00)
[2018-01-11] MEDS ORDERED: SODIUM CHLORIDE 0.9% 1,000 ML IV STA ×2 (15:00)
--- NOTE | 2018-01-11 15:39 | ED ---
General Adult HPI - General Chief complaint: Fever Stated complaint: fever/body aches/cancer pt-sent by Time Seen by Provider: 01/11/18 15:00 Source: patient, family, RN notes reviewed, old records reviewed Mode of arrival: wheelchair Limitations: no limitations - History of Present Illness Initial comments: This is a 57-year-old female the ER for evaluation. Patient medically for evaluation of fever. Patient doesn't CVA going to chemotherapy currently. Patient has no cough or congestion no diarrhea no nausea. No rash. - Related Data Home Medications Medication Instructions Recorded Confirmed ALPRAZolam [Xanax] 0.25 mg PO DAILY PRN 12/31/16 01/11/18 Albuterol Sulfate [Proair Hfa] 2 puff INHALATION RT-Q6H PRN 12/31/16 01/11/18 Atorvastatin [Lipitor] 20 mg PO HS 12/31/16 01/11/18 Famotidine [Pepcid] 20 mg PO DAILY 12/31/16 01/11/18 Fenofibrate [Lofibra] 160 mg PO DAILY 12/31/16 01/11/18 Loratadine [Claritin] 10 mg PO QAM 12/31/16 01/11/18 Montelukast [Singulair] 10 mg PO DAILY 12/31/16 01/11/18 metFORMIN HCL ER [Glucophage Xr] 500 mg PO BID 12/31/16 01/11/18 Docusate [Colace] 100 mg PO DAILY 10/23/17 01/11/18 Ondansetron HCl [Zofran] 4 mg PO QID PRN 10/23/17 01/11/18 diphenhydrAMINE [Benadryl] 25 mg PO QID PRN 10/23/17 01/11/18 Gabapentin [Neurontin] 400 mg PO TID 12/18/17 01/11/18 Insulin Glargine,Hum.rec.anlog 100 unit SQ HS 12/18/17 01/11/18 [Toujeo Solostar] Insulin Glulisine [Apidra Solostar] 45 unit SQ TID-W/MEALS 12/18/17 01/11/18 Insulin Glulisine [Apidra Solostar] See Protocol SQ HS 12/18/17 01/11/18 Polyethylene Glycol 3350 [Miralax] 17 gm PO BID 12/18/17 01/11/18 Rivaroxaban [Xarelto] 20 mg PO HS 12/19/17 01/11/18 Fluconazole [Diflucan] See Taper PO DAILY 01/11/18 01/11/18 Allergies Allergy/AdvReac Type Severity Reaction Status Date / Time Penicillins Allergy Intermediate Dyspnea/Rolando Verified 01/11/18 15:04 h Sulfa (Sulfonamide Allergy Intermediate Rash/Hives Verified 01/11/18 15:04 Antibiotics) cefepime Allergy Mild Unknown Verified 01/11/18 15:04 artificial sweetner Allergy Severe Rash/Hives Uncoded 01/11/18 14:29 Review of Systems ROS Statement: Those systems with pertinent positive or pertinent negative responses have been documented in the HPI. ROS Other: All systems not noted in ROS Statement are negative. Past Medical History Past Medical History: Asthma, Cancer, Diabetes Mellitus, Fibromyalgia, GERD/ Reflux, Hyperlipidemia, Hypertension, Osteoarthritis (OA), Renal Disease Additional Past Medical History / Comment(s): Liposarcoma 12/31/16 with pelvic mass removal, IDDM type II, L elbow fracture-surgery/bone removal, arthritis bilateral knees/shoulders/L elbow, DDD- cervical spine and upper back, lower spinal stenosis, bilateral tinnitis, neuropathy chin and arms at times. History of Any Multi-Drug Resistant Organisms: None Reported Past Surgical History: Adenoidectomy, Appendectomy, Bowel Resection, Section, Hysterectomy, Orthopedic Surgery, Tonsillectomy Additional Past Surgical History / Comment(s): Exploratory lap with pelvic mass removal, port placement, kidney stent/removed, D&C, right lateral salpingo- oophorectomy, colonoscopy, umbilical hernia repair, L knee arthroscopy, L elbow implant then bone removal, third molar removal Past Anesthesia/Blood Transfusion Reactions: Postoperative Nausea & Vomiting ( PONV) Past Psychological History: Anxiety Smoking Status: Never smoker Past Alcohol Use History: None Reported Past Drug Use History: None Reported - Past Family History Mother Family Medical History: Cancer Additional Family Medical History / Comment(s): eye, heart disease Father Additional Family Medical History / Comment(s): ALS, . Sister(s) Additional Family Medical History / Comment(s): ALS - General Exam Limitations: no limitations General appearance: alert, in no apparent distress Head exam: Present: atraumatic, normocephalic, normal inspection Eye exam: Present: normal appearance, PERRL, EOMI. Absent: scleral icterus, conjunctival injection, periorbital swelling ENT exam: Present: normal exam, mucous membranes moist Neck exam: Present: normal inspection. Absent: tenderness, meningismus, lymphadenopathy Respiratory exam: Present: normal lung sounds bilaterally. Absent: respiratory distress, wheezes, rales, rhonchi, stridor Cardiovascular Exam: Present: normal rhythm, tachycardia, normal heart sounds. Absent: systolic murmur, diastolic murmur, rubs, gallop, clicks GI/Abdominal exam: Present: soft, normal bowel sounds. Absent: distended, tenderness, guarding, rebound, rigid Extremities exam: Present: normal inspection, full ROM, normal capillary refill. Absent: tenderness, pedal edema, joint swelling, calf tenderness Back exam: Present: normal inspection Neurological exam: Present: alert, oriented X3, CN II-XII intact Psychiatric exam: Present: normal affect, normal mood Skin exam: Present: warm, dry, intact, normal color. Absent: rash Course Vital Signs 01/11/18 01/11/18 14:27 16:37 Temperature 100.3 F H 98.9 F Pulse Rate 118 H 93 Respiratory 20 18 Rate Blood Pressure 102/70 119/63 O2 Sat by Pulse 98 97 Oximetry Medical Decision Making - Medical Decision Making 57 female the ER for positive fever positive bowel pain flank pain. Patient is positive kidney stone with positive fever, positive UTI. Patient was admitted for IV antibiotics - Lab Data Result diagrams: 01/11/18 15:44 01/11/18 15:44 Lab Results 01/11/18 01/11/18 01/11/18 Range/Units 15:44 15:44 15:44 WBC 9.1 (3.8-10.6) k/uL RBC 4.09 (3.80-5.40) m/uL Hgb 10.3 L (11.4-16.0) gm/dL Hct 32.4 L (34.0-46.0) % MCV 79.1 L (80.0-100.0) fL MCH 25.1 (25.0-35.0) pg MCHC 31.8 (31.0-37.0) g/dL RDW 16.2 H (11.5-15.5) % Plt Count 234 (150-450) k/uL Neutrophils % 87 % Lymphocytes % 6 % Monocytes % 6 % Eosinophils % 1 % Basophils % 0 % Neutrophils # 7.8 H (1.3-7.7) k/uL Lymphocytes # 0.5 L (1.0-4.8) k/uL Monocytes # 0.6 (0-1.0) k/uL Eosinophils # 0.1 (0-0.7) k/uL Basophils # 0.0 (0-0.2) k/uL Hypochromasia Slight Anisocytosis Slight Microcytosis Slight Sodium 136 L (137-145) mmol/L Potassium 4.8 (3.5-5.1) mmol/L Chloride 100 (98-107) mmol/L Carbon Dioxide 20 L (22-30) mmol/L Anion Gap 16 mmol/L BUN 15 (7-17) mg/dL Creatinine 0.80 (0.52-1.04) mg/dL Est GFR (CKD-EPI)AfAm >90 (>60 ml/min/1.73 sqM) Est GFR (CKD-EPI)NonAf 83 (>60 ml/min/1.73 sqM) Glucose 342 H (74-99) mg/dL Plasma Lactic Acid Edwin 1.1 (0.7-2.0) mmol/L Calcium 9.4 (8.4-10.2) mg/dL Total Bilirubin 0.6 (0.2-1.3) mg/dL AST 20 (14-36) U/L ALT 29 (9-52) U/L Alkaline Phosphatase 116 (38-126) U/L Total Protein 7.0 (6.3-8.2) g/dL Albumin 3.9 (3.5-5.0) g/dL Urine Color Urine Appearance (Clear) Urine pH (5.0-8.0) Ur Specific [place] (1.001-1.035) Urine Protein (Negative) Urine Glucose (UA) (Negative) Urine Ketones (Negative) Urine Blood (Negative) Urine Nitrite (Negative) Urine Bilirubin (Negative) Urine Urobilinogen (<2.0) mg/dL Ur Leukocyte Esterase (Negative) Urine RBC (0-5) /hpf Urine WBC (0-5) /hpf Urine WBC Clumps (None) /hpf Urine Bacteria (None) /hpf 01/11/18 Range/Units 16:43 WBC (3.8-10.6) k/uL RBC (3.80-5.40) m/uL Hgb (11.4-16.0) gm/dL Hct (34.0-46.0) % MCV (80.0-100.0) fL MCH (25.0-35.0) pg MCHC (31.0-37.0) g/dL RDW (11.5-15.5) % Plt Count (150-450) k/uL Neutrophils % % Lymphocytes % % Monocytes % % Eosinophils % % Basophils % % Neutrophils # (1.3-7.7) k/uL Lymphocytes # (1.0-4.8) k/uL Monocytes # (0-1.0) k/uL Eosinophils # (0-0.7) k/uL Basophils # (0-0.2) k/uL Hypochromasia Anisocytosis Microcytosis Sodium (137-145) mmol/L Potassium (3.5-5.1) mmol/L Chloride (98-107) mmol/L Carbon Dioxide (22-30) mmol/L Anion Gap mmol/L BUN (7-17) mg/dL Creatinine (0.52-1.04) mg/dL Est GFR (CKD-EPI)AfAm (>60 ml/min/1.73 sqM) Est GFR (CKD-EPI)NonAf (>60 ml/min/1.73 sqM) Glucose (74-99) mg/dL Plasma Lactic Acid Edwin (0.7-2.0) mmol/L Calcium (8.4-10.2) mg/dL Total Bilirubin (0.2-1.3) mg/dL AST (14-36) U/L ALT (9-52) U/L Alkaline Phosphatase (38-126) U/L Total Protein (6.3-8.2) g/dL Albumin (3.5-5.0) g/dL Urine Color Light Yellow Urine Appearance Cloudy H (Clear) Urine pH 6.5 (5.0-8.0) Ur Specific [place] 1.009 (1.001-1.035) Urine Protein 1+ H (Negative) Urine Glucose (UA) 4+ H (Negative) Urine Ketones Negative (Negative) Urine Blood Small H (Negative) Urine Nitrite Negative (Negative) Urine Bilirubin Negative (Negative) Urine Urobilinogen <2.0 (<2.0) mg/dL Ur Leukocyte Esterase Large H (Negative) Urine RBC 7 H (0-5) /hpf Urine WBC >182 H (0-5) /hpf Urine WBC Clumps Few H (None) /hpf Urine Bacteria Rare H (None) /hpf - Radiology Data Radiology results: report reviewed (Chest x-rays negative, ultrasound shows positive eyedrops), image reviewed Disposition Clinical Impression: UTI (urinary tract infection), Dysuria, Kidney stone, Sepsis Disposition: ADMITTED IP TO THIS HOSP Condition: Fair Is patient prescribed a controlled substance at d/c from ED?: No Referrals: Carlos Ling MD [Primary Care Provider] - 1-2 days
[2018-01-11 16:07] LABS: ALT 29 U/L (9-52); AST 20 U/L (14-36); Albumin 3.9 g/dL (3.5-5.0); Alkaline Phosphatase 116 U/L (38-126); Anion Gap 16 mmol/L; Blood Urea Nitrogen 15 mg/dL (7-17); Calcium 9.4 mg/dL (8.4-10.2); Carbon Dioxide 20 mmol/L (22-30); Chloride 100 mmol/L (98-107); Glucose 342 mg/dL (74-99); Potassium 4.8 mmol/L (3.5-5.1); Sodium 136 mmol/L (137-145); Total Bilirubin 0.6 mg/dL (0.2-1.3)
[2018-01-11 16:10] LABS: Anisocytosis Slight; Basophils % (A) 0 %; Eosinophils # (A) 0.1 k/uL (0-0.7); Eosinophils % (A) 1 %; HCT 32.4 % (34.0-46.0); HGB 10.3 gm/dL (11.4-16.0); Hypochromasia Slight; Lymphocytes # (A) 0.5 k/uL (1.0-4.8); Lymphocytes % (A) 6 %; MCH 25.1 pg (25.0-35.0); MCHC 31.8 g/dL (31.0-37.0); MCV 79.1 fL (80.0-100.0); Mean Platelet Volume 6.5; Microcytosis Slight; Monocytes # (A) 0.6 k/uL (0-1.0); Monocytes % (A) 6 %; Neutrophils # (A) 7.8 k/uL (1.3-7.7); Neutrophils % (A) 87 %; Platelet Count 234 k/uL (150-450); RBC 4.09 m/uL (3.80-5.40); RDW 16.2 % (11.5-15.5); WBC 9.1 k/uL (3.8-10.6)
[2018-01-11] MEDS ORDERED: ONDANSETRON 4 MG/2 ML VIAL IVP STA (16:24)
--- NOTE | 2018-01-11 16:24 | XR ---
EXAMINATION TYPE: XR chest 2V DATE OF EXAM: 01/11/2018 COMPARISON: 02/10/2017 HISTORY: Recent onset of fever TECHNIQUE: Frontal and lateral views of the chest are obtained. FINDINGS: There is no focal air space opacity, pleural effusion, or pneumothorax seen. The previousl y seen right-sided Mediport has been removed in the interim. The cardiac silhouette size is upper li mits of normal. The osseous structures are intact. IMPRESSION: No acute cardiopulmonary process. Improved aeration in comparison to the prior exam.
[2018-01-11] MEDS ORDERED: MORPHINE SULFATE 2 MG/ML SYRINGE IVP STA (16:25)
[2018-01-11 16:54] LABS: Appearance,Urine Cloudy (Clear); Bacteria,Urine Rare /hpf; Bilirubin,Urine Negative (Negative); Blood,Urine Small (Negative); Color,Urine Light Yellow; Glucose,Urine (UA) 4+ (Negative); Ketones,Urine Negative (Negative); Leukocyte Esterase,Urine Large (Negative); Nitrite,Urine Negative (Negative); PH, Urine 6.5 (5.0-8.0); Protein,Urine 1+ (Negative); RBC,Urine 7 /hpf (0-5); Specific Gravity,Urine 1.009 (1.001-1.035); Urobilinogen,Urine <2.0 mg/dL (<2.0); WBC,Urine >182 /hpf (0-5)
[2018-01-11] MEDS ORDERED: LEVOFLOXACIN 750MG-D5W PMX 750 MG in DEXTROSE/WATER 1 150ML.BAG IVPB STA (16:55)
--- NOTE | 2018-01-11 17:46 | US ---
EXAMINATION TYPE: US renals and bladder DATE OF EXAM: 01/11/2018 COMPARISON: NONE CLINICAL HISTORY: Pain. Pain Hx of kidney stone. Hx of Liposcarcoma stent in ureter. EXAM MEASUREMENTS: Right Kidney: 11.3 x 5.1 x 5.0 cm Left Kidney: 12.9 x 5.3 x 4.5 cm Right Kidney: No hydronephrosis or masses seen Left Kidney: Mild to moderate hydronephrosis seen. Echogenic area seen mid pole non shadowing. Bladder: Anechoic Bilateral Jets seen: No Hydronephrosis is similar to the CT scan of 12/18/2017. No masses are identified. The urinary bladder is anechoic. Mild to moderate hydronephrosis seen. Echogenic area seen mid pole non shadowing. IMPRESSION: Right kidney appears normal. Left kidney shows hydronephrosis. There are small echogenic areas in the left kidney that could be scarring or calcification. Hydronephrosis is similar to the CT scan of 12/18/2017.
[2018-01-11] MEDS ORDERED: MORPHINE SULFATE 2 MG/ML SYRINGE IVP PRN (18:14)
[2018-01-11] MEDS ORDERED: ACETAMINOPHEN TAB 325 MG TAB PO PRN (18:14)
[2018-01-11] MEDS ORDERED: ONDANSETRON 4 MG/2 ML VIAL IVP PRN (18:14)
[2018-01-11 20:45] LABS: Glucose,Whole Blood 310 mg/dL (75-99)
[2018-01-11] MEDS ORDERED: ALBUTEROL NEBULIZED 2.5 MG/3 ML INHALATION PRN (20:50)
[2018-01-11] MEDS ORDERED: ALPRAZolam 0.25 MG TAB PO PRN (20:50)
[2018-01-11] MEDS ORDERED: diphenhydrAMINE 25 MG CAP PO PRN (20:50)
[2018-01-11] MEDS ORDERED: INSULIN DETEMIR 100 UNIT/ML 10 ML VIAL SQ SCH (21:00)
[2018-01-11] MEDS ORDERED: INSULIN ASPART 100 UNIT/ML 1 ML 10 ML VIAL SQ SCH (21:00)
[2018-01-11] MEDS ORDERED: INSULIN GLULISINE SQ SCH (21:00)
--- NOTE | 2018-01-11 21:13 | P.GSCN ---
History of Present Illness Consult date: 01/11/18 Reason for Consult: Left hydronephrosis and fever History of present illness: The patient has a pelvic liposarcoma which was diagnosed 1 year ago and has been treated with chemotherapy, radiation therapy and colostomy with removal of the pelvic mass which involved the distal left ureter. The ureter was reimplanted into the bladder at the time of surgery in 09/2017 at the [facility]. She has a history of urolithiasis and was admitted to [facility] last month with left flank pain when a 9 mm calculus in the left kidney migrated into the distal left ureter. The patient was treated with placement of a left double-J catheter and has been scheduled by Dr Moya to undergo left ureteroscopy with lithotripsy for treatment of the calculus next month. She was recently discovered to have a sharifa urinary tract infection and was started on Diflucan earlier in the week. Sharifa also grew from a culture obtained from the left renal pelvis at the time the JJ catheter was placed. She felt well and had a follow-up CT scan of the abdomen and pelvis with IV contrast yesterday evening and this showed correct placement of the left double- J catheter and reduced left hydronephrosis. This morning she said she developed malaise and chills and had a temperature of 102.9. She was nauseated and has vague abdominal pain which is more on the right side. She also has an intermittent non-productive cough. She came to the office for further evaluation and was noted to have a temperature of 100.2. Urinalysis showed evidence of pyuria but was negative for nitrite. Due to the uncertainty in regard to the source of the patient's fever and her multiple comorbidities I advised her to go to the emergency room for further evaluation with probable admission for IV antibiotic treatment. Review of Systems - Constitutional Reports chills, Reports fatigue, Reports lethargy - Cardiovascular Denies chest pain, Denies edema, Denies shortness of breath - Gastrointestinal Reports as per HPI, Reports nausea, Denies vomiting - Genitourinary Genitourinary: Reports as per HPI Past Medical History Past Medical History: Asthma, Cancer, Diabetes Mellitus, Fibromyalgia, GERD/ Reflux, Hyperlipidemia, Hypertension, Osteoarthritis (OA), Renal Disease Additional Past Medical History / Comment(s): Liposarcoma 12/31/16 with pelvic mass removal, IDDM type II, L elbow fracture-surgery/bone removal, arthritis bilateral knees/shoulders/L elbow, DDD- cervical spine and upper back, lower spinal stenosis, bilateral tinnitis, neuropathy chin and arms at times. History of Any Multi-Drug Resistant Organisms: None Reported Past Surgical History: Adenoidectomy, Appendectomy, Bowel Resection, Section, Hysterectomy, Orthopedic Surgery, Tonsillectomy Additional Past Surgical History / Comment(s): Exploratory lap with pelvic mass removal, port placement, kidney stent/removed, D&C, right lateral salpingo- oophorectomy, colonoscopy, umbilical hernia repair, L knee arthroscopy, L elbow implant then bone removal, third molar removal Past Anesthesia/Blood Transfusion Reactions: Postoperative Nausea & Vomiting ( PONV) Past Psychological History: Anxiety Smoking Status: Never smoker Past Alcohol Use History: None Reported Past Drug Use History: None Reported - Past Family History Mother Family Medical History: Cancer Additional Family Medical History / Comment(s): eye, heart disease Father Additional Family Medical History / Comment(s): ALS, . Sister(s) Additional Family Medical History / Comment(s): ALS - Medications and Allergies Home Medications Medication Instructions Recorded Confirmed Type ALPRAZolam [Xanax] 0.25 mg PO DAILY PRN 12/31/16 01/11/18 History Albuterol Sulfate [Proair Hfa] 2 puff INHALATION RT-Q6H PRN 12/31/16 01/11/18 History Atorvastatin [Lipitor] 20 mg PO HS 12/31/16 01/11/18 History Famotidine [Pepcid] 20 mg PO DAILY 12/31/16 01/11/18 History Fenofibrate [Lofibra] 160 mg PO DAILY 12/31/16 01/11/18 History Loratadine [Claritin] 10 mg PO QAM 12/31/16 01/11/18 History Montelukast [Singulair] 10 mg PO DAILY 12/31/16 01/11/18 History metFORMIN HCL ER [Glucophage Xr] 500 mg PO BID 12/31/16 01/11/18 History Docusate [Colace] 100 mg PO DAILY 10/23/17 01/11/18 History Ondansetron HCl [Zofran] 4 mg PO QID PRN 10/23/17 01/11/18 History diphenhydrAMINE [Benadryl] 25 mg PO QID PRN 10/23/17 01/11/18 History Gabapentin [Neurontin] 400 mg PO TID 12/18/17 01/11/18 History Insulin Glargine,Hum.rec.anlog 100 unit SQ HS 12/18/17 01/11/18 History [Toujeo Solostar] Insulin Glulisine [Apidra Solostar] 45 unit SQ TID-W/MEALS 12/18/17 01/11/18 History Insulin Glulisine [Apidra Solostar] See Protocol SQ HS 12/18/17 01/11/18 History Polyethylene Glycol 3350 [Miralax] 17 gm PO BID 12/18/17 01/11/18 History Rivaroxaban [Xarelto] 20 mg PO HS 12/19/17 01/11/18 History Fluconazole [Diflucan] See Taper PO DAILY 01/11/18 01/11/18 History HYDROcodone/APAP 7.5-325MG [[place] 1 tab PO Q4HR PRN 01/11/18 01/11/18 History 7.5-325] Allergies Allergy/AdvReac Type Severity Reaction Status Date / Time Penicillins Allergy Intermediate Dyspnea/Rolando Verified 01/11/18 15:04 h Sulfa (Sulfonamide Allergy Intermediate Rash/Hives Verified 01/11/18 15:04 Antibiotics) cefepime Allergy Mild Unknown Verified 01/11/18 15:04 artificial sweetner Allergy Severe Rash/Hives Uncoded 01/11/18 14:29 Surgical - Exam Vital Signs Temp Pulse Resp BP Pulse Ox 100.3 F H 118 H 20 102/70 98 01/11/18 14:27 01/11/18 14:27 01/11/18 14:27 01/11/18 14:27 01/11/18 14:27 - General moderate distress, moderate pain, chronically ill, obese - Respiratory normal respiratory effort, clear to auscultation - Cardiovascular Rhythm: regular Abnormal Heart Sounds: no systolic murmur, no diastolic murmur - Abdomen Abdomen: soft, no organomegaly (Colostomy present) Hernia: none - Psychiatric oriented to time, oriented to person, speech is normal Results - Labs 01/11/18 15:44 01/11/18 15:44 Abnormal Lab Results - Last 24 Hours (Table) 01/11/18 01/11/18 01/11/18 Range/Units 15:44 15:44 16:43 Hgb 10.3 L (11.4-16.0) gm/dL Hct 32.4 L (34.0-46.0) % MCV 79.1 L (80.0-100.0) fL RDW 16.2 H (11.5-15.5) % Neutrophils # 7.8 H (1.3-7.7) k/uL Lymphocytes # 0.5 L (1.0-4.8) k/uL Sodium 136 L (137-145) mmol/L Carbon Dioxide 20 L (22-30) mmol/L Glucose 342 H (74-99) mg/dL Urine Appearance Cloudy H (Clear) Urine Protein 1+ H (Negative) Urine Glucose (UA) 4+ H (Negative) Urine Blood Small H (Negative) Ur Leukocyte Esterase Large H (Negative) Urine RBC 7 H (0-5) /hpf Urine WBC >182 H (0-5) /hpf Urine WBC Clumps Few H (None) /hpf Urine Bacteria Rare H (None) /hpf Diabetes panel 01/11/18 Range/Units 15:44 Sodium 136 L (137-145) mmol/L Potassium 4.8 (3.5-5.1) mmol/L Chloride 100 (98-107) mmol/L Carbon Dioxide 20 L (22-30) mmol/L BUN 15 (7-17) mg/dL Creatinine 0.80 (0.52-1.04) mg/dL Glucose 342 H (74-99) mg/dL Calcium 9.4 (8.4-10.2) mg/dL AST 20 (14-36) U/L ALT 29 (9-52) U/L Alkaline Phosphatase 116 (38-126) U/L Total Protein 7.0 (6.3-8.2) g/dL Albumin 3.9 (3.5-5.0) g/dL Calcium panel 01/11/18 Range/Units 15:44 Calcium 9.4 (8.4-10.2) mg/dL Albumin 3.9 (3.5-5.0) g/dL Pituitary panel 01/11/18 Range/Units 15:44 Sodium 136 L (137-145) mmol/L Potassium 4.8 (3.5-5.1) mmol/L Chloride 100 (98-107) mmol/L Carbon Dioxide 20 L (22-30) mmol/L BUN 15 (7-17) mg/dL Creatinine 0.80 (0.52-1.04) mg/dL Glucose 342 H (74-99) mg/dL Calcium 9.4 (8.4-10.2) mg/dL Adrenal panel 01/11/18 Range/Units 15:44 Sodium 136 L (137-145) mmol/L Potassium 4.8 (3.5-5.1) mmol/L Chloride 100 (98-107) mmol/L Carbon Dioxide 20 L (22-30) mmol/L BUN 15 (7-17) mg/dL Creatinine 0.80 (0.52-1.04) mg/dL Glucose 342 H (74-99) mg/dL Calcium 9.4 (8.4-10.2) mg/dL Total Bilirubin 0.6 (0.2-1.3) mg/dL AST 20 (14-36) U/L ALT 29 (9-52) U/L Alkaline Phosphatase 116 (38-126) U/L Total Protein 7.0 (6.3-8.2) g/dL Albumin 3.9 (3.5-5.0) g/dL Assessment and Plan (1) Hydronephrosis Narrative/Plan: The patient's left hydronephrosis is improved following recent placement of a JJ catheter. The hydronephrosis was partially related to previous obstruction at the pelvic brim from her pelvic mass and was treated with distal ureterectomy and ureteral reimplant in 09/2017 at the [facility]. Recently she had distal ureter obstruction from a left renal calculus that migrated to the distal left ureter and caused acute obstruction and pain. Dr Moya plans ureteroscopic removal of the calculus in a few weeks. Her JJ catheter appears to be in correct position based on her CT scan done yesterday. Current Visit: Yes Status: Acute Code(s): N13.30 - UNSPECIFIED HYDRONEPHROSIS SNOMED Code(s): 85548020 (2) Sepsis Narrative/Plan: The source of the patient's recent fever is not clear. She appears septic. She has pyruia but this could be from the JJ catheter. She has has bacterial UTI's earlier this year and I agree with IV antibiotics pending results of her blood and urine cultures. She should also be continued on the antifungal treatment. Current Visit: Yes Status: Acute Code(s): A41.9 - SEPSIS, UNSPECIFIED ORGANISM SNOMED Code(s): 44774721
[2018-01-11] MEDS: HYDROcodone/APAP 7.5-325MG 1 EACH TAB PO PRN (22:31)
[2018-01-11] MEDS: RIVAROXABAN 20 MG TAB PO SCH (22:32)
[2018-01-11] MEDS: ATORVASTATIN 20 MG TAB PO SCH (22:32)
[2018-01-11] MEDS: POLYETHYLENE GLYCOL 3350 17 GM POWD.PACK PO SCH (22:32)
[2018-01-11] MEDS: GABAPENTIN 400 MG CAP PO SCH (22:32)
[2018-01-12 02:17] LABS: Hemoglobin A1C 9.2 % (4.0-6.0)
[2018-01-12] MEDS ORDERED: INSULIN DETEMIR 100 UNIT/ML 10 ML VIAL SQ SCH ×2 (07:15→21:00)
[2018-01-12] MEDS ORDERED: metFORMIN 500 MG TAB PO SCH (07:30)
[2018-01-12 07:39] LABS: Glucose,Whole Blood 163 mg/dL (75-99)
[2018-01-12] MEDS: GABAPENTIN 400 MG CAP PO SCH ×3 (08:27→20:47)
[2018-01-12] MEDS: FAMOTIDINE 20 MG TAB PO SCH (08:27)
[2018-01-12] MEDS: MONTELUKAST 10 MG TAB PO SCH (08:27)
[2018-01-12] MEDS: SODIUM CHLORIDE 0.9% 1,000 ML IV SCH ×2 (08:28→17:35)
[2018-01-12] MEDS: FENOFIBRATE 160 MG TAB PO SCH (08:28)
[2018-01-12] MEDS: DOCUSATE 100 MG CAP PO SCH (08:28)
[2018-01-12] MEDS: LORATADINE 10 MG TAB PO SCH (08:28)
[2018-01-12] MEDS: POLYETHYLENE GLYCOL 3350 17 GM POWD.PACK PO SCH ×2 (08:29→20:46)
[2018-01-12] MEDS: INSULIN ASPART 100 UNIT/ML 1 ML 10 ML VIAL SQ SCH ×4 (08:31→22:06)
[2018-01-12] MEDS: HYDROcodone/APAP 7.5-325MG 1 EACH TAB PO PRN ×3 (08:36→20:45)
[2018-01-12 08:54] LABS: Basophils % (A) 0 %; Eosinophils # (A) 0.1 k/uL (0-0.7); Eosinophils % (A) 3 %; HCT 28.4 % (34.0-46.0); Hypochromasia Slight; Lymphocytes # (A) 0.7 k/uL (1.0-4.8); Lymphocytes % (A) 13 %; MCH 25.2 pg (25.0-35.0); MCHC 31.8 g/dL (31.0-37.0); MCV 79.2 fL (80.0-100.0); Mean Platelet Volume 6.8; Microcytosis Slight; Monocytes # (A) 0.4 k/uL (0-1.0); Monocytes % (A) 7 %; Neutrophils % (A) 77 %; Platelet Count 207 k/uL (150-450); RBC 3.58 m/uL (3.80-5.40); RDW 15.9 % (11.5-15.5); WBC 5.2 k/uL (3.8-10.6)
[2018-01-12] MEDS ORDERED: ENOXAPARIN 40 MG/0.4 ML SYRINGE SQ SCH (09:00)
[2018-01-12] MEDS ORDERED: FLUCONAZOLE 100 MG TAB PO SCH (09:00)
[2018-01-12 09:26] LABS: ALT 23 U/L (9-52); AST 15 U/L (14-36); Albumin 3.4 g/dL (3.5-5.0); Alkaline Phosphatase 97 U/L (38-126); Anion Gap 12 mmol/L; Blood Urea Nitrogen 10 mg/dL (7-17); Calcium 8.9 mg/dL (8.4-10.2); Carbon Dioxide 25 mmol/L (22-30); Chloride 104 mmol/L (98-107); Glucose 134 mg/dL (74-99); Potassium 3.8 mmol/L (3.5-5.1); Sodium 141 mmol/L (137-145); Total Bilirubin 0.3 mg/dL (0.2-1.3); Total Protein 6.3 g/dL (6.3-8.2)
[2018-01-12] MEDS ORDERED: BISACODYL 5 MG TABLET.DR PO PRN (10:09)
--- NOTE | 2018-01-12 10:10 | P.HPIM ---
History of Present Illness H&P Date: 01/12/18 Chief Complaint: fever 57-year-old female who presented to the emergency room after she was evaluated at her urologist office for a fever and found to have a urinary tract infection. The patient was recently hospitalized from 12/19/2017 until 2017 secondary to a 9 mm renal calculus in the mid left ureter with hydronephrosis. The patient underwent a cystoscopy at that time with a left ureteral stent placement. The patient is scheduled for a left ureteroscopy with lithotripsy next month with Dr. Moya. The patient states she was doing well post discharge. She reports she just completed a 5 day course of Diflucan for a ashvin urinary tract infection. The patient states she woke up yesterday with generalized malaise and just did not feel like herself. She states that she felt like she had a fever and was experiencing chills. She states that she took her temperature and it was 102.9F. She called her urologist office and was able to be seen by Dr. Kerns. He recommended that she come to the emergency room for further evaluation. The patient reports that she has been experiencing urinary urgency. She has a hard time holding her urine and states "when I have to go it just comes and I can't hold it". She wears briefs for her urinary incontinence. She denies urinary frequency, hematuria, or burning with urination. She denies pain with urination but does report some tenderness at the external urethral orifice after voiding. She also reports cloudy urine and states that her urine "smelled different than normal". She also admits to right flank pain. She also complains of some mild abdominal pain. The patient has a colostomy bag and she states that she has had very little output over the last couple days and believes that she is constipated. The patient also reports that she underwent a computed tomography scan with IV contrast on Monday evening, 01/10/2018, which apparently revealed reduced left hydronephrosis and correct placement of left double-J catheter. The patient has a history of high grade De-differentiated liposarcoma, diagnosed in December 2016. The patient underwent exploratory laparotomy in December 2016 with excision of a pelvic mass, grade 3 that extended into the margins. She completed chemotherapy in April 2017. She states she went to [facility] after that and underwent radiation treatments, which were completed in July 2017. She states she underwent the second phase of surgery for her tumor resection in September 2017. She has an ileostomy, which she reports was performed in September 2017. She had a mediport that was removed earlier this year. She apparently also had paracentesis completed twice since her surgery in September due to ascites fluid. She reports she had a central line placed during her hospitalization and developed a blood clot in the vessel. She reports she was started on Xarelto and was told she is to continue it for three months. The patient also has a history of asthma, diabetes mellitus, hypertension, GERD , hyperlipidemia, and osteoarthritis. Chest x-ray: Negative for an acute process Laboratory data: WBC 9.1. Hemoglobin 10.3. Platelet count 234. Sodium 136. Potassium 4.8. BUN 15. Creatinine 0.80. Glucose 342. Hemoglobin A1c: 9.2% Urinalysis reveals: Cloudy light yellow urine, 1+ proteinuria, 4+ glucose, negative ketones, small blood, negative nitrites, large leukocyte esterase, RBC 7, WBCs greater than 182. The patient was admitted to the hospital under the care of Dr. Ling. Consultations were placed to urology. Review of Systems GENERAL: Positive for fever and chills. Positive for generalized malaise. EYES: Denies blurred vision. Denies vision changes. Denies eye pain. EARS, NOSE, MOUTH, & THROAT: Denies headache. Denies sore throat. Denies ear pain. RESPIRATORY: Denies cough. Denies shortness of breath. Denies sputum production. Denies hemoptysis. CARDIOVASCULAR: Denies chest pain or pressure. Denies palpitations. Denies arrhythmias. GASTROINTESTINAL: Positive for mild abdominal pain. Positive for constipation. Denies diarrhea. Denies nausea. Denies vomiting. Denies heartburn. Denies blood in the stool. GENITOURINARY: Positive for cloudy urine. Positive for malodorous urine. Positive for urinary urgency. Denies burning with urination. Denies hematuria. Denies urinary frequency. Positive for right flank pain. MUSCULOSKELETAL: Denies myalgias. Denies joint swelling. Denies decreased range of motion beyond patients baseline. INTEGUMENTARY: Denies pruitis. Denies rash. PSYCHIATRIC: Denies suicidal or homicial ideations. ENDOCRINE: Denies weight change. Denies polydipsia. Denies polyuria. HEMATOLOGIC: Denies bleeding disorders. Past Medical History Past Medical History: Asthma, Cancer, Diabetes Mellitus, Fibromyalgia, GERD/ Reflux, Hyperlipidemia, Hypertension, Osteoarthritis (OA), Renal Disease Additional Past Medical History / Comment(s): Liposarcoma 12/31/16 with pelvic mass removal, IDDM type II, L elbow fracture-surgery/bone removal, arthritis bilateral knees/shoulders/L elbow, DDD- cervical spine and upper back, lower spinal stenosis, bilateral tinnitis, neuropathy chin and arms at times. History of Any Multi-Drug Resistant Organisms: None Reported Past Surgical History: Adenoidectomy, Appendectomy, Bowel Resection, Section, Hysterectomy, Orthopedic Surgery, Tonsillectomy Additional Past Surgical History / Comment(s): Exploratory lap with pelvic mass removal, port placement, kidney stent/removed, D&C, right lateral salpingo- oophorectomy, colonoscopy, umbilical hernia repair, L knee arthroscopy, L elbow implant then bone removal, third molar removal Past Anesthesia/Blood Transfusion Reactions: Postoperative Nausea & Vomiting ( PONV) Additional Past Anesthesia/Blood Transfusion Reaction / Comment(s): mild clausterphobia Past Psychological History: Anxiety Smoking Status: Never smoker Past Alcohol Use History: None Reported Past Drug Use History: None Reported - Past Family History Mother Family Medical History: Cancer Additional Family Medical History / Comment(s): eye, heart disease Father Additional Family Medical History / Comment(s): ALS, . Sister(s) Additional Family Medical History / Comment(s): ALS - Medications and Allergies Home Medications Medication Instructions Recorded Confirmed Type ALPRAZolam [Xanax] 0.25 mg PO DAILY PRN 12/31/16 01/11/18 History Albuterol Sulfate [Proair Hfa] 2 puff INHALATION RT-Q6H PRN 12/31/16 01/11/18 History Atorvastatin [Lipitor] 20 mg PO HS 12/31/16 01/11/18 History Famotidine [Pepcid] 20 mg PO DAILY 12/31/16 01/11/18 History Fenofibrate [Lofibra] 160 mg PO DAILY 12/31/16 01/11/18 History Loratadine [Claritin] 10 mg PO QAM 12/31/16 01/11/18 History Montelukast [Singulair] 10 mg PO DAILY 12/31/16 01/11/18 History metFORMIN HCL ER [Glucophage Xr] 500 mg PO BID 12/31/16 01/11/18 History Docusate [Colace] 100 mg PO DAILY 10/23/17 01/11/18 History Ondansetron HCl [Zofran] 4 mg PO QID PRN 10/23/17 01/11/18 History diphenhydrAMINE [Benadryl] 25 mg PO QID PRN 10/23/17 01/11/18 History Gabapentin [Neurontin] 400 mg PO TID 12/18/17 01/11/18 History Insulin Glargine,Hum.rec.anlog 100 unit SQ HS 12/18/17 01/11/18 History [Toujeo Solostar] Insulin Glulisine [Apidra Solostar] 45 unit SQ TID-W/MEALS 12/18/17 01/11/18 History Insulin Glulisine [Apidra Solostar] See Protocol SQ HS 12/18/17 01/11/18 History Polyethylene Glycol 3350 [Miralax] 17 gm PO BID 12/18/17 01/11/18 History Rivaroxaban [Xarelto] 20 mg PO HS 12/19/17 01/11/18 History Fluconazole [Diflucan] See Taper PO DAILY 01/11/18 01/11/18 History HYDROcodone/APAP 7.5-325MG [[place] 1 tab PO Q4HR PRN 01/11/18 01/11/18 History 7.5-325] Allergies Allergy/AdvReac Type Severity Reaction Status Date / Time Penicillins Allergy Intermediate Dyspnea/Rolando Verified 01/11/18 15:04 h Sulfa (Sulfonamide Allergy Intermediate Rash/Hives Verified 01/11/18 15:04 Antibiotics) cefepime Allergy Mild Unknown Verified 01/11/18 15:04 artificial sweetner Allergy Severe Rash/Hives Uncoded 01/11/18 14:29 Physical Exam Vitals: Vital Signs Temp Pulse Pulse Resp BP BP Pulse Ox 01/12/18 06:57 98.6 F 81 16 116/60 96 01/11/18 22:00 99.4 F 87 16 108/54 94 L 01/11/18 18:45 98.3 F 81 18 87/54 95 01/11/18 16:37 98.9 F 93 18 119/63 97 01/11/18 14:27 100.3 F H 118 H 20 102/70 98 Intake and Output 01/11/18 01/12/18 01/12/18 22:59 06:59 14:59 Intake Total 300 900 Balance 300 900 Intake: IV 300 600 Sodium Chloride 0.9% 1, 300 600 000 ml @ 100 mls/hr IV . Q10H STA Rx#:[id number] Blood Product 300 Other: Voiding Method Toilet Toilet Diaper # Voids 2 GENERAL: This is a 57-year-old female in no apparent distress at the time of examination. Pleasant and cooperative. HEENT: Head is atraumatic, normocephalic. Pupils are equal, round, and reactive to light. Sclerae anicteric. Conjunctivae are clear. Mucus membranes of the mouth are moist. Neck is supple. RESPIRATORY: Clear to ausculation. No wheezes, rales, or rhonchi. No use of accessory muscles. Patient maintaining oxygen saturation greater than 92%. No chest wall tenderness is noted on palpation or with deep breathing. CARDIOVASCULAR: Regular rate and rhythm. S1 and S2 noted. No systolic or diastolic murmur auscultated. No JVD noted. No S3 or S4 noted. GASTROINTESTINAL: No distention noted. Abdomen soft and round. Normal active bowel sounds auscultated x 4 quadrants. Mild pain and tenderness upon palpation of right lower quadrant. Ostomy noted to left lower quadrant with minimal output noted. Right CVA tenderness noted. INTEGUMENTARY: No cyanosis. No jaundice. No rashes noted. No cellulitis noted. EXTREMITIES: 2+ peripheral pulses. No evidence of peripheral edema. No calf tenderness noted. NEUROLOGIC: Cranial nerves II-XII intact. PSYCHIATRIC: Awake, alert, and oriented X 3. Appropriate affect. Intact judgement and insight. Results CBC & Chem 7: 01/12/18 08:21 01/12/18 08:21 Labs: Abnormal Lab Results - Last 24 Hours (Table) 01/11/18 01/11/18 01/11/18 Range/Units 15:44 15:44 15:44 RBC (3.80-5.40) m/uL Hgb 10.3 L (11.4-16.0) gm/dL Hct 32.4 L (34.0-46.0) % MCV 79.1 L (80.0-100.0) fL RDW 16.2 H (11.5-15.5) % Neutrophils # 7.8 H (1.3-7.7) k/uL Lymphocytes # 0.5 L (1.0-4.8) k/uL Sodium 136 L (137-145) mmol/L Carbon Dioxide 20 L (22-30) mmol/L Glucose 342 H (74-99) mg/dL POC Glucose (mg/dL) (75-99) mg/dL Hemoglobin A1c 9.2 H (4.0-6.0) % Albumin (3.5-5.0) g/dL Urine Appearance (Clear) Urine Protein (Negative) Urine Glucose (UA) (Negative) Urine Blood (Negative) Ur Leukocyte Esterase (Negative) Urine RBC (0-5) /hpf Urine WBC (0-5) /hpf Urine WBC Clumps (None) /hpf Urine Bacteria (None) /hpf 01/11/18 01/11/18 01/12/18 Range/Units 16:43 20:43 07:37 RBC (3.80-5.40) m/uL Hgb (11.4-16.0) gm/dL Hct (34.0-46.0) % MCV (80.0-100.0) fL RDW (11.5-15.5) % Neutrophils # (1.3-7.7) k/uL Lymphocytes # (1.0-4.8) k/uL Sodium (137-145) mmol/L Carbon Dioxide (22-30) mmol/L Glucose (74-99) mg/dL POC Glucose (mg/dL) 310 H 163 H (75-99) mg/dL Hemoglobin A1c (4.0-6.0) % Albumin (3.5-5.0) g/dL Urine Appearance Cloudy H (Clear) Urine Protein 1+ H (Negative) Urine Glucose (UA) 4+ H (Negative) Urine Blood Small H (Negative) Ur Leukocyte Esterase Large H (Negative) Urine RBC 7 H (0-5) /hpf Urine WBC >182 H (0-5) /hpf Urine WBC Clumps Few H (None) /hpf Urine Bacteria Rare H (None) /hpf 01/12/18 01/12/18 Range/Units 08:21 08:21 RBC 3.58 L (3.80-5.40) m/uL Hgb 9.0 L (11.4-16.0) gm/dL Hct 28.4 L (34.0-46.0) % MCV 79.2 L (80.0-100.0) fL RDW 15.9 H (11.5-15.5) % Neutrophils # (1.3-7.7) k/uL Lymphocytes # 0.7 L (1.0-4.8) k/uL Sodium (137-145) mmol/L Carbon Dioxide (22-30) mmol/L Glucose 134 H (74-99) mg/dL POC Glucose (mg/dL) (75-99) mg/dL Hemoglobin A1c (4.0-6.0) % Albumin 3.4 L (3.5-5.0) g/dL Urine Appearance (Clear) Urine Protein (Negative) Urine Glucose (UA) (Negative) Urine Blood (Negative) Ur Leukocyte Esterase (Negative) Urine RBC (0-5) /hpf Urine WBC (0-5) /hpf Urine WBC Clumps (None) /hpf Urine Bacteria (None) /hpf Microbiology - Last 24 Hours (Table) 01/11/18 16:43 Urine Culture - Preliminary Urine,Voided Thrombosis Risk Factor Assmnt - Choose All That Apply Any of the Below Risk Factors Present?: Yes Each Factor Represents 1 point: Age 41-60 years, Obesity (BMI >25) Other Risk Factors: Yes Each Risk Factor Represents 3 Points: History of DVT/PE Other congenital or acquired thrombophilia - If yes, enter type in comment: No Thrombosis Risk Factor Assessment Total Risk Factor Score: 5 Thrombosis Risk Factor Assessment Level: High Risk Assessment and Plan Plan: ASSESSMENT: Symptomatic urinary tract infection, present on admission, urine cultures pending Sepsis: tachycardia, fever, and hypotension, present on admission, secondary to urinary tract infection, improving Recent diagnosis of ashvin urinary tract infection, completed 5 day course of Diflucan Recent hospitalization, 11/2017, secondary to 9mm renal calculus in the mid left ureter with hydronephrosis, s/p cystoscopy with left urethral stent placement History of liposarcoma, diagnosed in 2016, s/p chemotherapy and radiation History of exploratory laparotomy in December 2016 with excision of a pelvic mass History of second surgical operation for tumor resection with abdominal perineal resection of the distal colon, ileostomy creation, and resection of distal left ureter, September 2017 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 Appreciate recommendations and input Continue antibiotics: Levaquin Await urine culture results Continue IV fluids at 75cc/hr Resume metformin tomorrow AM secondary to recent CT scan with IV contrast Continue MiraLAX and Colace for mild constipation. Will add dulcolax PRN. Home meds as appropriate Monitor labs GI prophylaxis: Pepcid 20 mg by mouth daily DVT prophylaxis: Xarelto 20mg daily Monitor vital signs and address as appropriate Discharge planning: Patient to return home when stable Further recommendations pending patient's course Nurse practitioner note has been reviewed by physician. Signing provider agrees with the documented findings, assessment, and plan of care.
[2018-01-12 11:19] LABS: Glucose,Whole Blood 186 mg/dL (75-99)
[2018-01-12 12:34] VITALS: BMI 27.9
[2018-01-12 17:37] LABS: Glucose,Whole Blood 241 mg/dL (75-99)
[2018-01-12] MEDS ORDERED: LEVOFLOXACIN 750MG-D5W PMX 750 MG in DEXTROSE/WATER 1 150ML.BAG IVPB SCH (18:00)
[2018-01-12 20:24] LABS: Glucose,Whole Blood 196 mg/dL (75-99)
[2018-01-12] MEDS: ATORVASTATIN 20 MG TAB PO SCH (20:46)
[2018-01-12] MEDS: RIVAROXABAN 20 MG TAB PO SCH (20:47)
--- NOTE | 2018-01-12 20:57 | P.PN ---
Progress Note - Text Progress Note Date: 01/12/18 The patient is afebrile and says she feels much better than yesterday. She no longer has chills. Her appetite and control of her diabetes are also improved. WBC is 5,200. Urine culture is pending. Would continue Levaquin and Diflucan pending results of the cultures.
[2018-01-13] MEDS: HYDROcodone/APAP 7.5-325MG 1 EACH TAB PO PRN ×3 (04:09→16:12)
[2018-01-13] MEDS: SODIUM CHLORIDE 0.9% 1,000 ML IV SCH (04:09)
[2018-01-13 07:27] LABS: Glucose,Whole Blood 303 mg/dL (75-99)
[2018-01-13] MEDS: INSULIN ASPART 100 UNIT/ML 1 ML 10 ML VIAL SQ SCH ×3 (08:19→17:29)
[2018-01-13] MEDS: POLYETHYLENE GLYCOL 3350 17 GM POWD.PACK PO SCH (08:19)
[2018-01-13] MEDS: LORATADINE 10 MG TAB PO SCH (08:20)
[2018-01-13] MEDS: DOCUSATE 100 MG CAP PO SCH (08:20)
[2018-01-13] MEDS: FAMOTIDINE 20 MG TAB PO SCH (08:20)
[2018-01-13] MEDS: metFORMIN 500 MG TAB PO SCH ×2 (08:20→17:27)
[2018-01-13] MEDS: FENOFIBRATE 160 MG TAB PO SCH (08:20)
[2018-01-13] MEDS: MONTELUKAST 10 MG TAB PO SCH (08:20)
[2018-01-13] MEDS: GABAPENTIN 400 MG CAP PO SCH ×2 (08:20→16:12)
[2018-01-13] MEDS ORDERED: FLUCONAZOLE 100 MG TAB PO SCH (09:00)
[2018-01-13 11:02] LABS: Glucose,Whole Blood 270 mg/dL (75-99)
--- NOTE | 2018-01-13 11:05 | P.PN ---
Progress Note - Text Progress Note Date: 01/13/18 Patient is afebrile and no longer has any anorexia. A urine culture at the time of admission has shown no growth. The source of the patient's fever and what appeared to be sepsis remain unclear. At this point I believe the patient could be discharged. No yeast grew in the urine culture and for that reason she does not need to be continued on Diflucan. She is scheduled to undergo left ureteroscopy with lithotripsy in early January.
[2018-01-13] MEDS ORDERED: LEVOFLOXACIN 500 MG TAB PO STA (12:18)
[2018-01-13 16:01] VITALS: BP 111/69; PULSE 89; RESP 18; TEMP 98
[2018-01-13 17:21] LABS: Glucose,Whole Blood 217 mg/dL (75-99)
[2018-01-14] MEDS ORDERED: LEVOFLOXACIN 750MG-D5W PMX 750 MG in DEXTROSE/WATER 1 150ML.BAG IVPB SCH (18:00)
== END 2018-01-13 18:25 | disposition home or self-care (01) | DRG 872 ==
LOC: EC 14:24 → 5MS5E 18:14 → 5ONC 19:00
PROVIDERS: ADMIT Family Medicine; ATTEND Family Medicine
DX: A41.9 Sepsis, unspecified organism (principal); N13.2 Hydronephrosis with renal and ureteral calculous obstruction; N39.0 Urinary tract infection, site not specified; E11.9 Type 2 diabetes mellitus without complications; E78.5 Hyperlipidemia, unspecified; F41.9 Anxiety disorder, unspecified; I10 Essential (primary) hypertension; J45.909 Unspecified asthma, uncomplicated; K21.9 Gastro-esophageal reflux disease without esophagitis; M17.0 Bilateral primary osteoarthritis of knee; M79.7 Fibromyalgia; R32 Unspecified urinary incontinence; Z79.01 Long term (current) use of anticoagulants; Z79.4 Long term (current) use of insulin; Z79.899 Other long term (current) drug therapy; Z86.718 Personal history of other venous thrombosis and embolism; Z87.442 Personal history of urinary calculi; Z90.710 Acquired absence of both cervix and uterus; Z92.21 Personal history of antineoplastic chemotherapy; Z92.3 Personal history of irradiation; Z93.3 Colostomy status; Z88.0 Allergy status to penicillin; Z88.2 Allergy status to sulfonamides; Z88.8 Allergy status to other drugs, medicaments and biological substances; Z85.9 Personal history of malignant neoplasm, unspecified; M19.90 Unspecified osteoarthritis, unspecified site; Z79.891 Long term (current) use of opiate analgesic
CPT/HCPCS: 36415; 71046; 76770; 80053; 81001; 83036; 83605; 85025; 87086; 96361; 96365; 96375; 99285

== ENCOUNTER → 2018-01-25 | Outpatient (CLI) | payer MEDICAID ==
[2018-01-25 19:20] LABS: Basophils % (A) 1 %; Eosinophils # (A) 0.1 k/uL (0-0.7); Eosinophils % (A) 1 %; HCT 31.2 % (34.0-46.0); HGB 9.5 gm/dL (11.4-16.0); Hypochromasia Marked; Lymphocytes # (A) 0.6 k/uL (1.0-4.8); Lymphocytes % (A) 9 %; MCH 24.4 pg (25.0-35.0); MCHC 30.4 g/dL (31.0-37.0); MCV 80.3 fL (80.0-100.0); Mean Platelet Volume 7.2; Monocytes # (A) 0.5 k/uL (0-1.0); Monocytes % (A) 7 %; Neutrophils # (A) 5.6 k/uL (1.3-7.7); Neutrophils % (A) 81 %; Platelet Count 310 k/uL (150-450); RBC 3.89 m/uL (3.80-5.40); WBC 6.9 k/uL (3.8-10.6)
[2018-01-25 19:24] LABS: Calcium 9.5 mg/dL (8.4-10.2); Potassium 4.3 mmol/L (3.5-5.1)
== END | disposition home or self-care (01) ==
LOC: LABWHC1 17:10
PROVIDERS: ATTEND Urology
DX: Z01.812 Encounter for preprocedural laboratory examination (principal); N20.1 Calculus of ureter; E11.9 Type 2 diabetes mellitus without complications; E78.5 Hyperlipidemia, unspecified; R35.0 Frequency of micturition; R31.29 Other microscopic hematuria; I10 Essential (primary) hypertension
CPT/HCPCS: 36415; 80048; 85025

== ENCOUNTER → 2018-01-26 | Outpatient (CLI) | payer MEDICAID | END | disposition home or self-care (01) | LOC: LABPAT 17:21 | PROVIDERS: ATTEND Urology | DX: Z01.812 Encounter for preprocedural laboratory examination (principal); E11.9 Type 2 diabetes mellitus without complications; E78.5 Hyperlipidemia, unspecified; N20.1 Calculus of ureter; I10 Essential (primary) hypertension; R35.0 Frequency of micturition; R31.29 Other microscopic hematuria | CPT/HCPCS: 87086 ==

== ENCOUNTER 2018-02-01 05:47 | Day surgery (SDC) | payer MEDICAID ==
[2018-01-24 11:05] VITALS: BMI 27.9
[~2018-02-01 05:47] MED LIST changes: -HEPARIN SODIUM,PORCINE 5,000 UNIT/ML 1 ML VIAL SQ ONE; +HYDROmorphone 0.5 MG/0.5 ML SYRINGE IVP PRN; -HYDROmorphone 1 MG/ML 1 ML SYRINGE IVP PRN; -LACTATED RINGERS 1,000 ML IV ONE; +LACTATED RINGERS 1,000 ML IV SCH; -MIDAZOLAM 2 MG/2 ML VIAL IV PRN; -SCOPOLAMINE 1.5MG/72HR PATCH TRANSDERM ONE; -ceFAZolin 2 GM in SODIUM CHLORIDE 0.9% 100 ML IVPB ONE
[2018-02-01] MEDS ORDERED: LEVOFLOXACIN 500MG-D5W PMX 500 MG in DEXTROSE/WATER 1 100ML.BAG IVPB ONE (06:00)
--- NOTE | 2018-02-01 06:15 | XR ---
EXAMINATION TYPE: XR KUB DATE OF EXAM: 02/01/2018 COMPARISON: 12/21/2016 HISTORY: Preop surgery. Ureteral stent. TECHNIQUE: 2 views FINDINGS: There is a left-sided double-J ureteral stent. There are numerous surgical clips in the pel vis. There is no sign of intestinal obstruction or pneumoperitoneum. Fecal pattern is normal. Lung ba ses are clear. IMPRESSION: Nonacute abdomen. Left ureteral stent is probably in good position. There is clearing of the 8 mm calculus over the left kidney compared to last exam.
[2018-02-01] MEDS ORDERED: LIDOCAINE 1% 20 ML VIAL (10MG/ML) FOR IV START INTRADERMA ONE (06:30)
[2018-02-01 06:38] VITALS: RESP 16
[2018-02-01 06:41] LABS: Glucose,Whole Blood 249 mg/dL (75-99)
[2018-02-01] MEDS ORDERED: SCOPOLAMINE 1.5MG/72HR PATCH TRANSDERM ONE (06:50)
[2018-02-01] MEDS ORDERED: INSULIN ASPART 100 UNIT/ML 1 ML 10 ML VIAL SQ ONE ×2 (06:55→09:52)
[2018-02-01] MEDS ORDERED: MIDAZOLAM 2 MG/2 ML VIAL ONE (07:33)
[2018-02-01] MEDS ORDERED: LIDOCAINE 1% INJ 10MG/ML (20 ML MDV) ONE (07:33)
[2018-02-01] MEDS ORDERED: SUCCINYLCHOLINE CHLORIDE 100 MG/5 ML SYR IV ONE (07:33)
[2018-02-01] MEDS ORDERED: fentaNYL (PF) 50 MCG/ML 2 ML AMP ONE (07:33)
[2018-02-01] MEDS ORDERED: NEOSTIGMINE 1 MG/ML 10 ML VIAL ONE (07:33)
[2018-02-01] MEDS ORDERED: HYDROmorphone (PF) 1 MG/ML ONE (07:33)
[2018-02-01] MEDS ORDERED: PROPOFOL 10 MG/ML 20 ML VIAL IV ONE (07:33)
[2018-02-01] MEDS ORDERED: ROCURONIUM BROMIDE 10 MG/ML 10 ML VIAL IV ONE (07:33)
[2018-02-01] MEDS ORDERED: GLYCOPYRROLATE 0.2 MG/ML 2 ML VIAL ONE (07:33)
[2018-02-01] MEDS ORDERED: LACTATED RINGERS 1,000 ML IV ONE (08:52)
--- NOTE | 2018-02-01 09:10 | P.OP ---
Date of Procedure: 02/01/18 Preoperative Diagnosis: Left ureteral calculus Postoperative Diagnosis: Same Procedure(s) Performed: Cystoscopy, left ureteral stent removal, left ureteroscopy with Holmium laser lithotripsy Anesthesia: TAOA Surgeon: Marc Moya Estimated Blood Loss (ml): 0 IV fluids (ml): 700 Pathology: other (Calculus fragments, sent for chemical analysis) Condition: stable Disposition: PACU Indications for Procedure: She is a 57-year-old woman evaluated for increased urinary frequency and diminished urinary stream in 2017. She noted blood with wiping, and x-ray revealed a 1 cm left renal calculus. She was diagnosed with a pelvic liposarcoma , for which she has received chemoradiation and pelvic debulking surgery which included a left ureteral reimplant. She was recently hospitalized with left hydronephrosis, as the calculus has migrated into the distal ureter. She underwent stent placement, and she now comes for ureteroscopic removal of the calculus. Operative Findings: Large left distal ureteral calculus at ureteral orifice, fragmented and removed in its entirety. Description of Procedure: The patient was taken to the operating room and placed in the dorsolithotomy position, with legs supported in Roverto stirrups. The external genitalia was prepped and draped sterilely. The 30 lens was used to introduce the 22-Lao Stortz cystoscopic sheath through the urethra and into the bladder under direct vision. The bladder was examined in its entirety. No tumors or foreign bodies were seen. The left ureteral stent was grasped with grasping forceps and removed along with the cystoscope. The [facility] semirigid ureteroscope was advanced into the bladder, and the left ureteral orifice was cannulated. The ureteroscope was advanced less than 1 cm, at which time a large distal ureteral calculus was identified. The 200 micron Holmium laser probe was passed through the ureteroscope, and lithotripsy was performed. The calculus fragmented completely, and calculus fragments passed into the bladder. Once the calculus had been fragmented, the ureteroscope was advanced. The ureter proximal to this was dilated. No additional calculi were seen. There was no evidence of ureteral perforation. The ureteroscope was removed, and the cystoscope was passed into the bladder to drain the bladder and removed calculus fragments. These were sent for chemical analysis. The patient tolerated the procedure well and was taken to the recovery room in stable condition.
[2018-02-01 09:16] VITALS: TEMP 97.2
[2018-02-01 09:49] LABS: Glucose,Whole Blood 258 mg/dL (75-99)
[2018-02-01] MEDS ORDERED: HYDROcodone/APAP 7.5-325MG 1 EACH TAB PO ONE (10:45)
[2018-02-01 10:51] VITALS: BP 110/73; PULSE 83
== END 2018-02-01 11:57 | disposition home or self-care (01) ==
LOC: OR 05:47
PROVIDERS: ATTEND Urology
DX: N13.2 Hydronephrosis with renal and ureteral calculous obstruction (principal); B37.49 Other urogenital candidiasis; N39.46 Mixed incontinence; R31.0 Gross hematuria; E78.5 Hyperlipidemia, unspecified; I10 Essential (primary) hypertension; E11.9 Type 2 diabetes mellitus without complications; J45.909 Unspecified asthma, uncomplicated; K21.9 Gastro-esophageal reflux disease without esophagitis; Z85.89 Personal history of malignant neoplasm of other organs and systems; Z92.21 Personal history of antineoplastic chemotherapy; Z92.3 Personal history of irradiation; Z79.82 Long term (current) use of aspirin; Z79.4 Long term (current) use of insulin; Z79.899 Other long term (current) drug therapy; Z79.01 Long term (current) use of anticoagulants; Z79.51 Long term (current) use of inhaled steroids; Z88.0 Allergy status to penicillin; Z88.2 Allergy status to sulfonamides; Z91.09 Other allergy status, other than to drugs and biological substances
CPT/HCPCS: 82365; 74018; 52353; C1769; J2250; J1100; J2710; J2405; J1956; J2001; J3010; J1170 ×2; J0330; J2704

== ENCOUNTER → 2018-02-20 | Outpatient (CLI) | payer MEDICAID ==
--- NOTE | 2018-02-20 15:48 | US ---
EXAMINATION TYPE: US kidneys/renal and bladder DATE OF EXAM: 02/20/2018 COMPARISON: 12/29/2016 CLINICAL HISTORY: Z98.890 S/P ureteral reimplant. h/o liposarcoma, extensive surgical history at [facility] EXAM MEASUREMENTS: Right Kidney: 10.6 x 6.3 x 6.0cm Left Kidney: 12.4 x 5.7 x 5.1cm Right Kidney: No hydronephrosis or masses seen Left Kidney: Mild left calyceal prominence without distinct hydronephrosis or masses seen Bladder: wnl Bilateral Jets seen: no There is no evidence for hydronephrosis at this point in time. No nephrolithiasis is seen. No mukesh s are identified. The urinary bladder is anechoic. Bilateral ureteral jets are seen. IMPRESSION: Mild left pelvocaliectasis without discrete hydronephrosis. No right-sided hydronephrosis either.
== END | disposition home or self-care (01) ==
LOC: RADUSWWP 13:44
PROVIDERS: ATTEND Urology
DX: N28.89 Other specified disorders of kidney and ureter (principal); Z98.890 Other specified postprocedural states
CPT/HCPCS: 76770

== ENCOUNTER → 2018-04-11 | Outpatient (CLI) | payer MEDICAID ==
[2018-04-11 15:43] LABS: Calcium 10.5 mg/dL (8.4-10.2)
[2018-04-11 15:48] LABS: Potassium 4.9 mmol/L (3.5-5.1)
--- NOTE | 2018-04-11 22:21 | CT ---
EXAMINATION TYPE: CT ChestAbdPelvis w con DATE OF EXAM: 04/11/2018 COMPARISON: 01/10/2018 and 04/17/2017. HISTORY: 57-year-old female follow up for liposarcoma. TECHNIQUE: Contiguous axial scanning of the chest, abdomen, and pelvis performed with IV Contrast, pa tient injected with 100 mL of Isovue 300. Delayed images through the kidneys were obtained. Coronal/s agittal reconstructions performed. CT DLP: 2766 mGycm Automated exposure control for dose reduction was used. FINDINGS: Chest: Heart normal size without pericardial effusion. Aorta normal caliber with conventional arch vessel branching anatomy. Scattered nonenlarged mediastinal lymph nodes. No thoracic lymphadenopathy by CT size criteria. Mild to moderate diffuse bronchial wall thickening and mild centrilobular emphysema. A couple 4 mm nodules in the peripheral left lower lung are unchanged for 3 months. A couple 4 mm pul monary nodules at the peripheral right lower lung also remain unchanged. A 4 to 5 mm pulmonary nodule , one in each upper lung are stable. No consolidation or pleural effusion. ABDOMEN: Hepatomegaly at 21.1 cm with low attenuation of the hepatic parenchyma. Portal venous system is paten t. No biliary ductal dilatation. Gallbladder, adrenal glands, spleen, and pancreas show no gross abnormality. Subcentimeter hypodensity anterior right kidney too small for accurate CT characterization, stable, l ikely cyst. Couple surgical clips are present along the left renal collecting system and ureter. There is residua l left-sided pelvic caliectasis but with interval removal of the patient's ureteral stent. A couple borderline to lymph nodes in the retroperitoneum region at the level of the kidneys measure up to 7 mm and are unchanged. Refer to axial image 83. No new mesenteric or retroperitoneal lymphaden opathy seen. No dilated small bowel, free fluid, or free air. Mild to moderate stool burden with a left lower quadrant sigmoid colostomy. There is a small fat-cont aining parastomal hernia measuring 4.9 cm wide. Pelvis: Circumferential bladder wall thickening with postsurgical changes in the presacral region. There is a rind of irregular, thickened soft tissue and residual fluid in the presacral region now measuring 3. 3 x 1.5 cm versus 5.1 x 2.5 cm, previously, decreased in the interval. However, some possible enhanci ng irregular soft tissue along the right anterolateral margin of this fluid collection may be increas ed, refer to axial image 115. Scar and posttreatment change is possible. Multiple surgical clips are present in the presacral region with thickening along the left pelvic sidewall and bilateral internal iliac chains contiguous with this area. Most notably, there is a new 3.4 x 2.6 cm soft tissue nodule within the lower mesentery inferior to s mall bowel loops, refer to image 104. This is located directly superior to the bladder and is highly suspicious. In addition, platelike fluid collection overlying the superficial fascia of the lower anterior midlin e abdominal wall musculature shows slight interval decrease in size now measuring 4.7 x 1.4 cm versus 5.0 x 1.8 cm, previously, likely postoperative seroma. Bones: Degenerative changes left SI joint. No osseous destructive process. Degenerative changes lower lumbar spine. IMPRESSION: 1. POSTSURGICAL AND POSTTREATMENT CHANGES IN THE PRESACRAL REGION WITH SOFT TISSUE THICKENING CONTIGU OUS WITH THE LEFT PELVIC SIDEWALL AND BILATERAL INTERNAL ILIAC CHAINS, PROBABLY SCAR TISSUE. THE FLUI D COLLECTION IN THE PRESACRAL REGION SHOWS DECREASING SIZE (3.3 CM VERSUS 5.1 CM, PREVIOUSLY). THERE MAY BE SLIGHTLY INCREASED IRREGULAR SOFT TISSUE THICKENING ALONG THE RIGHT ANTEROLATERAL MARGIN OF T HE PRESACRAL FLUID. CLOSE FOLLOW-UP RECOMMENDED. BOTH SCAR TISSUE AND RECURRENT NEOPLASM ARE IN THE D IFFERENTIAL AT THIS TIME. 2. HOWEVER, MORE CONCERNING IS A NEW 3.4 CM SOFT TISSUE NODULE IN THE LOWER MESENTERY JUST ABOVE THE BLADDER. THIS IS HIGHLY SUSPICIOUS FOR RECURRENT DISEASE. 3. INTERVAL REMOVAL OF THE LEFT-SIDED URETERAL STENT WITH RESIDUAL LEFT-SIDED PELVICALIECTASIS. 4. APPROXIMATELY 6 PULMONARY NODULES IN THE LUNGS MEASURING UP TO 5 MM ARE STABLE BACK TO AT LEAST .
== END | disposition home or self-care (01) ==
LOC: RADCTMAIN 14:59
PROVIDERS: ATTEND Surgery
DX: R93.8 Abnormal findings on diagnostic imaging of other specified body structures (principal); R91.8 Other nonspecific abnormal finding of lung field; Z98.890 Other specified postprocedural states
CPT/HCPCS: 80048; 71260; 74177; Q9967

== ENCOUNTER → 2018-04-28 | Outpatient (CLI) | payer MEDICAID ==
--- NOTE | 2018-04-29 13:31 | MR ---
EXAMINATION TYPE: MR lumbar spine wo/w con DATE OF EXAM: 04/28/2018 COMPARISON: No prior MRI of the lumbar spine. HISTORY: LBP, LLE radic, sarcoma removed from spine 2017 and 2018 CONTRAST: 9 mL intravenous Gadavist. TECHNIQUE: Multiplanar, multisequence images of the lumbar spine were acquired. FINDINGS: L5-S1: Disc bulging into the far right lateral direction is evident. This has moderate right foramina l stenosis. Some contact with the nerve root within the foramen may be present. Mild broad-based disc bulge is present through the anterior thecal sac with contact. No AP spinal canal stenosis is presen t. The left foramen is patent. Disc height has mild narrowing. Disc desiccation is evident. Right fac et hypertrophy is present. L4-L5: Broad-based disc bulge has moderate anterior thecal sac compression. Facet hypertrophy and lig amentum flavum laxity is posterior lateral thecal sac compression. Some lateral canal narrowing may b e present to mild degree. Lateral canal dimension is 1.1 cm. No AP spinal canal stenosis present. [place] foramen are patent. The left foramen may have mild narrowing inferiorly. L3-L4: Broad-based disc bulge has anterior thecal sac contact. No AP spinal canal stenosis is present . Neural foramen are patent. Facet hypertrophy and ligamentum flavum laxity is present. L2-L3: Broad-based disc bulge has mild anterior thecal sac contact. No AP spinal canal stenosis prese nt. Facet hypertrophy is present. Some posterior lateral right lesser left thecal sac compression is evident. Foramen are patent. L1-L2: No significant disc bulge or disc herniation. No spinal canal stenosis. No foraminal stenosi s. . T12-L1: No significant disc bulge or disc herniation. No spinal canal stenosis. No foraminal stenos is. . No abnormal enhancement. There is straightening of the lumbar spine sagittal plane. IMPRESSION: 1. Moderate right foraminal stenosis L5-S1. Correlate with right S1 radicular symptoms from disc bulg ing into the foramen. 2. Facet hypertrophy with mild lateral canal stenosis L4-5 due to facet hypertrophy and ligamentum fl avum laxity. Disc bulging is also present with moderate anterior thecal sac compression. No AP spinal canal stenosis is present. 3. Multilevel facet hypertrophy with some ligamentum flavum laxity has milder posterior lateral theca l sac compression discussed above. 4. Suspicious masslike areas to suggest recurrent sarcoma are not identified in the spinal canal.
== END | disposition home or self-care (01) ==
LOC: RADMRIMAIN 08:33
PROVIDERS: ATTEND Physical Medicine & Rehabilitation
DX: M48.061 Spinal stenosis, lumbar region without neurogenic claudication (principal); M99.73 Connective tissue and disc stenosis of intervertebral foramina of lumbar region; M51.17 Intervertebral disc disorders with radiculopathy, lumbosacral region
CPT/HCPCS: 82565; 72158; 36415; A9581

== ENCOUNTER → 2018-06-08 | Outpatient (CLI) | payer MEDICAID ==
--- NOTE | 2018-06-08 13:58 | CT ---
EXAMINATION TYPE: CT ChestAbdPelvis w con DATE OF EXAM: 06/08/2018 COMPARISON: 04/11/2018 HISTORY: Liposarcoma CT DLP: 2274 mGycm Automated exposure control for dose reduction was used. CONTRAST: CT scan of the chest, abdomen and pelvis is performed with Oral Contrast and with IV Contrast, patien t injected with 100 mL of Isovue 300. FINDINGS: Chest: Heart normal size without pericardial effusion. Aorta normal caliber with conventional arch vessel branching anatomy. Scattered nonenlarged mediastinal lymph nodes. No thoracic lymphadenopathy by CT size criteria. Mild to moderate diffuse bronchial wall thickening and mild centrilobular emphysema. There remain multiple pulmonary nodules which are stable in number. All nodules measure less than 5 m m. A couple 4 mm nodules in the peripheral left lower lung are unchanged for 3 months. A couple 4 mm pulmonary nodules at the peripheral right lower lung also remain unchanged. A 4 to 5 mm pulmonary nod ule, one in each upper lung are stable. Subpleural 2 mm nodule or segment right lower lobe stable No consolidation or pleural effusion. ABDOMEN: Hepatomegaly at 28 cm and retrospectively stable. There is diffuse low attenuation of the hepatic par enchyma. Correlate for hepatic steatosis. Portal venous system is patent. No biliary ductal dilatatio n. Gallbladder, adrenal glands, spleen, and pancreas show no gross abnormality. Retroaortic left renal v ein noted. Subcentimeter hypodensity anterior right kidney too small for accurate CT characterization, stable, l ikely cyst. Couple surgical clips are present along the left renal collecting system and ureter. There is residua l left-sided pelvic caliectasis but with interval removal of the patient's ureteral stent. A couple borderline to lymph nodes in the retroperitoneum region at the level of the kidneys measure up to 7 mm and are unchanged. No new mesenteric or retroperitoneal lymphadenopathy seen. No dilated small bowel, free fluid, or free air. Mild to moderate stool burden with a left lower quadrant sigmoi d colostomy. There is a small fat-containing parastomal hernia measuring 4.9 cm wide. Pelvis: Circumferential bladder wall thickening with postsurgical changes in the presacral region. There is a rind of irregular, thickened soft tissue and residual fluid in the presacral region which is stable from the prior exam. There is a round soft tissue mass in the pelvis measuring 6.8 x 6.0 cm and previously measuring 3.4 x 2.6 cm. Multiple surgical clips are present in the presacral region with thickening along the left p elvic sidewall and bilateral internal iliac chains contiguous with this area. Hypertrophic and degenerative changes of vertebral column. IMPRESSION: 1. Interval increase in size of the pelvic mass which measures 6.8 x 6.0 cm and previously measured 3 .4 x 2.6 cm 2. Stable multiple bilateral pulmonary nodules suggestive of metastases 3. Abnormal soft tissue in the presacral space appears stable.
== END ==
LOC: RADCTMAIN 11:16
PROVIDERS: ATTEND Internal Medicine Hematology & Oncology
DX: C49.9 Malignant neoplasm of connective and soft tissue, unspecified (principal); R19.00 Intra-abdominal and pelvic swelling, mass and lump, unspecified site; R91.8 Other nonspecific abnormal finding of lung field; Z88.2 Allergy status to sulfonamides; Z88.8 Allergy status to other drugs, medicaments and biological substances
CPT/HCPCS: 82565; 84520; 71260; 74177; 36415; Q9967

== ENCOUNTER → 2018-07-10 | Outpatient (CLI) | payer MEDICAID ==
[2018-07-10 15:21] VITALS: BP 114/62; PULSE 92; RESP 16; TEMP 97.9
== END | disposition home or self-care (01) ==
LOC: PROCWHC3 14:49
PROVIDERS: ATTEND Family Medicine
DX: K43.5 Parastomal hernia without obstruction or gangrene (principal); Z85.89 Personal history of malignant neoplasm of other organs and systems; Z93.3 Colostomy status
CPT/HCPCS: 99214

== ENCOUNTER → 2018-07-18 | Outpatient (CLI) | payer MEDICAID ==
[2018-07-18 12:23] LABS: Blood Urea Nitrogen 16 mg/dL (7-17)
--- NOTE | 2018-07-19 09:46 | CT ---
EXAMINATION TYPE: CT ChestAbdPelvis w con DATE OF EXAM: 07/18/2018 COMPARISON: 06/08/2018 HISTORY: Follow up scan per patient. History of liposarcoma. CT DLP: 2213.6 mGycm. Automated Exposure Control for Dose Reduction was Utilized. CONTRAST: CT scan of the thorax, abdomen and pelvis is performed with IV Contrast, patient injected with 100 mL of Isovue 300. FINDINGS: LUNGS: There is a 5 mm pulmonary nodule in the right upper lobe on series 4 image 19. There are 2 1 t o 2 mm pulmonary nodules in the right upper lobe on image 28. Punctate 1 mm right lower lobe pulmonar y nodule seen on image 32. 4 mm pulmonary nodule is present on image 34 on the right. 5 mm pulmonary nodule in the right lower lobe is seen on image 36. On the left there is a 4 mm solid pulmonary nodul e on image 35, a 4 mm solid pulmonary nodule on image 34, a 4 mm solid pulmonary nodule also on image 22, and a 2 mm pulmonary nodule on image 17. In comparison to the prior exam of 04/17/2017 these appe ar stable. MEDIASTINUM: There are no greater than 1 cm hilar or mediastinal lymph nodes. No pericardial effusi on is seen. LIVER/GB: Liver is enlarged and elongated extending into the left upper quadrant. There is also decre ased attenuation of the hepatic parenchyma compatible with underlying hepatic steatosis. PANCREAS: No significant abnormality is seen. SPLEEN: No significant abnormality is seen. ADRENALS: No significant abnormality is seen. KIDNEYS: There is asymmetric enlargement of the right kidney comparison to the left. Kidneys enhance symmetrically without hydronephrosis. Surgical clips are noted adjacent to the left ureter within the gonadal vein. There is a stable hypoattenuated right renal lesion anteriorly on image 80 that again is too small to accurately characterize. BOWEL: There is prominence of the ileocecal valve although contrast does not extend into the cecum. D iverting ostomy is seen in the left upper quadrant with slight hyperemia of the distal colonic wall. No pericolonic fat stranding. No dilated large or small bowel. Moderate amount retained colonic stool is seen. LYMPH NODES: No greater than 1cm abdominal or pelvic lymph nodes are appreciated. OTHER: The heterogenous pelvic mass currently measures 6.0 x 5.2 x 3.7 cm and previously measured 6.8 x 6.0 cm on the exam of 06/18/2018. There is overall decrease in size visually and by measurement of the primary neoplasm. The presacral soft tissue thickening has also improved now measuring 2.9 cm an d previously measuring 2.3 cm. This tracks up the lateral left iliac chain as is the primary mass ter minating distal to the aortoiliac bifurcation. OSSEOUS STRUCTURES: No significant abnormality is seen. IMPRESSION: 1. Decrease in size of the primary pelvic sarcoma and abnormal presacral soft tissue thickening. 2. Redemonstration of multiple stable subcentimeter bilateral pulmonary nodules again most compatible with metastasis. 3. No new adenopathy or soft tissue implants within the chest, abdomen, or pelvis. No new evidence of visceral metastasis.
== END | disposition home or self-care (01) ==
LOC: RADCTMAIN 11:00
PROVIDERS: ATTEND Internal Medicine Hematology & Oncology
DX: C49.9 Malignant neoplasm of connective and soft tissue, unspecified (principal); Z88.0 Allergy status to penicillin; Z88.2 Allergy status to sulfonamides; Z88.8 Allergy status to other drugs, medicaments and biological substances
CPT/HCPCS: 82565; 84520; 71260; 74177; 36415; Q9967

== ENCOUNTER 2018-07-22 12:55 | Inpatient (IN) | payer MEDICAID ==
[2018-07-22] MEDS ORDERED: SODIUM CHLORIDE 0.9% 1,000 ML IV STA (13:32)
[2018-07-22] MEDS ORDERED: HYDROmorphone 0.5 MG/0.5 ML SYRINGE IVP STA (13:32)
[2018-07-22] MEDS ORDERED: LEVOFLOXACIN 750MG-D5W PMX 750 MG in DEXTROSE/WATER 1 150ML.BAG IVPB STA (13:38)
--- NOTE | 2018-07-22 13:38 | ED ---
General Adult HPI - General Chief complaint: Abdominal Pain Stated complaint: Fever, ABd Pain-Ca Pt Time Seen by Provider: 07/22/18 13:21 Source: patient, RN notes reviewed, old records reviewed Mode of arrival: wheelchair Limitations: no limitations - History of Present Illness Initial comments: 57-year-old female presented for evaluation of fever and chills. Patient has current liposarcoma of the abdomen and is currently on chemotherapy, most recent course was 11 days prior. Patient does report some hematuria. Denies URI symptoms. Denies cough or dyspnea. Denies chest pain. She is also having some right lower quadrant abdominal pain which is been present for the past several days. Patient has had previous tumor resection, she has colostomy. She is also had revision of her ureter, unknown exactly what procedure was done as this was done at [facility]. - Related Data Home Medications Medication Instructions Recorded Confirmed ALPRAZolam [Xanax] 0.25 mg PO Q6H PRN 12/31/16 07/22/18 Albuterol Sulfate [Proair Hfa] 2 puff INHALATION RT-Q6H PRN 12/31/16 07/22/18 Atorvastatin [Lipitor] 20 mg PO HS 12/31/16 07/22/18 Famotidine [Pepcid] 20 mg PO DAILY 12/31/16 07/22/18 Fenofibrate [Lofibra] 160 mg PO DAILY 12/31/16 07/22/18 Loratadine [Claritin] 10 mg PO QAM 12/31/16 07/22/18 Montelukast [Singulair] 10 mg PO DAILY 12/31/16 07/22/18 metFORMIN HCL ER [Glucophage Xr] 500 mg PO BID 12/31/16 07/22/18 Gabapentin [Neurontin] 400 mg PO TID 12/18/17 07/22/18 Insulin Glargine,Hum.rec.anlog 100 unit SQ HS 12/18/17 07/22/18 [[place] Solostar] Polyethylene Glycol 3350 [Miralax] 17 gm PO DAILY PRN 12/18/17 07/22/18 HYDROcodone/APAP 7.5-325MG [[place] 1 tab PO Q4HR PRN 01/11/18 07/22/18 7.5-325] Aspirin [Adult Low Dose Aspirin EC] 81 mg PO DAILY 01/24/18 07/22/18 Enalapril [Vasotec] 2.5 mg PO DAILY 01/24/18 07/22/18 Metoprolol Succinate (ER) [Toprol 25 mg PO BID 07/10/18 07/22/18 Xl] Ibuprofen [Motrin] 800 mg PO TID PRN 07/22/18 07/22/18 Insulin Aspart [NovoLOG 40 unit SQ AC-TID 07/22/18 07/22/18 (formulary)] Insulin Aspart [NovoLOG See Protocol SQ HS 07/22/18 07/22/18 (formulary)] Allergies Allergy/AdvReac Type Severity Reaction Status Date / Time Penicillins Allergy Intermediate Dyspnea/Rolando Verified 07/22/18 13:37 h Sulfa (Sulfonamide Allergy Intermediate Rash/Hives Verified 07/22/18 13:37 Antibiotics) cefepime Allergy Mild Unknown Verified 07/22/18 13:37 artificial sweetner Allergy Severe Rash/Hives Uncoded 07/10/18 14:56 Review of Systems ROS Statement: Those systems with pertinent positive or pertinent negative responses have been documented in the HPI. ROS Other: All systems not noted in ROS Statement are negative. Past Medical History Past Medical History: Asthma, Cancer, Diabetes Mellitus, Fibromyalgia, GERD/ Reflux, Hyperlipidemia, Hypertension, Osteoarthritis (OA), Renal Disease Additional Past Medical History / Comment(s): Liposarcoma 12/31/16 with pelvic mass removal, IDDM type II, L elbow fracture-surgery/bone removal, arthritis bilateral knees/shoulders/L elbow, DDD- cervical spine and upper back, lower spinal stenosis, bilateral tinnitis, neuropathy chin and arms at times. 10/15 second mass removed in pelvic area. History of Any Multi-Drug Resistant Organisms: None Reported Past Surgical History: Adenoidectomy, Appendectomy, Bowel Resection, Section, Hysterectomy, Orthopedic Surgery, Tonsillectomy Additional Past Surgical History / Comment(s): Exploratory lap with pelvic mass removal, port placement, kidney stent/removed, D&C, right lateral salpingo- oophorectomy, colonoscopy, umbilical hernia repair, L knee arthroscopy, L elbow implant then bone removal, third molar removal Past Anesthesia/Blood Transfusion Reactions: Postoperative Nausea & Vomiting ( PONV) Past Psychological History: Anxiety Smoking Status: Never smoker Past Alcohol Use History: None Reported Past Drug Use History: None Reported - Past Family History Mother Family Medical History: Cancer Additional Family Medical History / Comment(s): eye cancer, heart disease Father Additional Family Medical History / Comment(s): ALS, . Sister(s) Additional Family Medical History / Comment(s): ALS - General Exam Limitations: no limitations General appearance: alert, in no apparent distress Head exam: Present: atraumatic, normocephalic Eye exam: Present: normal appearance, PERRL ENT exam: Present: normal exam. Absent: normal oropharynx, mucous membranes dry Neck exam: Present: normal inspection. Absent: tenderness, meningismus Respiratory exam: Present: normal lung sounds bilaterally. Absent: respiratory distress, wheezes Cardiovascular Exam: Present: normal rhythm, tachycardia GI/Abdominal exam: Present: soft, distended, tenderness (Mild right lower quadrant tenderness, left side colostomy). Absent: guarding, rebound Extremities exam: Present: normal inspection, normal capillary refill. Absent: pedal edema, calf tenderness Neurological exam: Present: alert, oriented X3 Psychiatric exam: Present: normal affect, normal mood Skin exam: Present: warm, dry, intact. Absent: cyanosis, diaphoretic Course Vital Signs 07/22/18 13:16 Temperature 102.5 F H Pulse Rate 101 H Respiratory 18 Rate Blood Pressure 96/58 O2 Sat by Pulse 93 L Oximetry Medical Decision Making - Medical Decision Making 57 -year-old female with history of liposarcoma of the abdomen currently on chemotherapy presenting with fever and hematuria. Patient has elevated white blood cell count 15.0, hemoglobin 10.2 which is stable for this patient. CMP within normal limits, urinalysis does show 117 white cells, leukocyte Estrace positive with occasional bacteria. Blood culture and urine cultures are pending. Patient is started on empiric antibiotics. She will be admitted. Case discussed with the admitting physician. Oncology placed on consult. - Lab Data Result diagrams: 07/22/18 13:52 07/22/18 13:52 Lab Results 07/22/18 07/22/18 07/22/18 Range/Units 13:52 13:52 13:52 WBC 15.0 H (3.8-10.6) k/uL RBC 3.68 L (3.80-5.40) m/uL Hgb 10.2 L D (11.4-16.0) gm/dL Hct 32.0 L (34.0-46.0) % MCV 87.1 (80.0-100.0) fL MCH 27.7 (25.0-35.0) pg MCHC 31.8 (31.0-37.0) g/dL RDW 19.5 H (11.5-15.5) % Plt Count 76 L D (150-450) k/uL Neutrophils % Not Reportable Neutrophils % (Manual) 86 % Band Neutrophils % 3 % Lymphocytes % Not Reportable Lymphocytes % (Manual) 5 % Monocytes % Not Reportable Monocytes % (Manual) 3 % Eosinophils % Not Reportable Basophils % Not Reportable Metamyelocytes % 2 % Myelocytes % 3 % Neutrophils # Not Reportable Neutrophils # (Manual) 13.30 H (1.3-7.7) k/uL Lymphocytes # Not Reportable Lymphocytes # (Manual) 0.75 L (1.0-4.8) k/uL Monocytes # Not Reportable Monocytes # (Manual) 0.45 (0-1.0) k/uL Eosinophils # Not Reportable Basophils # Not Reportable Metamyelocytes # (Man) 0.30 H (0) k/uL Myelocytes # (Manual) 0.45 H (0) k/uL Nucleated RBCs 0 (0-0) /100 WBC Polychromasia Present Anisocytosis Slight PT (9.0-12.0) sec INR (<1.2) APTT (22.0-30.0) sec Sodium 139 (137-145) mmol/L Potassium 4.4 (3.5-5.1) mmol/L Chloride 105 (98-107) mmol/L Carbon Dioxide 24 (22-30) mmol/L Anion Gap 10 mmol/L BUN 16 (7-17) mg/dL Creatinine 0.94 (0.52-1.04) mg/dL Est GFR (CKD-EPI)AfAm 79 (>60 ml/min/1.73 sqM) Est GFR (CKD-EPI)NonAf 68 (>60 ml/min/1.73 sqM) Glucose 204 H (74-99) mg/dL Plasma Lactic Acid Edwin 1.6 (0.7-2.0) mmol/L Calcium 9.2 (8.4-10.2) mg/dL Total Bilirubin 0.8 (0.2-1.3) mg/dL AST 31 (14-36) U/L ALT 52 (9-52) U/L Alkaline Phosphatase 116 (38-126) U/L Total Protein 6.3 (6.3-8.2) g/dL Albumin 3.7 (3.5-5.0) g/dL Amylase 39 (30-110) U/L Lipase 60 (23-300) U/L Urine Color Urine Appearance (Clear) Urine pH (5.0-8.0) Ur Specific [place] (1.001-1.035) Urine Protein (Negative) Urine Glucose (UA) (Negative) Urine Ketones (Negative) Urine Blood (Negative) Urine Nitrite (Negative) Urine Bilirubin (Negative) Urine Urobilinogen (<2.0) mg/dL Ur Leukocyte Esterase (Negative) Urine WBC (0-5) /hpf Ur Squamous Epith Cells (0-4) /hpf Urine Bacteria (None) /hpf Urine Mucus (None) /hpf 07/22/18 07/22/18 Range/Units 13:52 14:17 WBC (3.8-10.6) k/uL RBC (3.80-5.40) m/uL Hgb (11.4-16.0) gm/dL Hct (34.0-46.0) % MCV (80.0-100.0) fL MCH (25.0-35.0) pg MCHC (31.0-37.0) g/dL RDW (11.5-15.5) % Plt Count (150-450) k/uL Neutrophils % Neutrophils % (Manual) % Band Neutrophils % % Lymphocytes % Lymphocytes % (Manual) % Monocytes % Monocytes % (Manual) % Eosinophils % Basophils % Metamyelocytes % % Myelocytes % % Neutrophils # Neutrophils # (Manual) (1.3-7.7) k/uL Lymphocytes # Lymphocytes # (Manual) (1.0-4.8) k/uL Monocytes # Monocytes # (Manual) (0-1.0) k/uL Eosinophils # Basophils # Metamyelocytes # (Man) (0) k/uL Myelocytes # (Manual) (0) k/uL Nucleated RBCs (0-0) /100 WBC Polychromasia Anisocytosis PT 9.4 (9.0-12.0) sec INR 0.9 (<1.2) APTT 21.8 L (22.0-30.0) sec Sodium (137-145) mmol/L Potassium (3.5-5.1) mmol/L Chloride (98-107) mmol/L Carbon Dioxide (22-30) mmol/L Anion Gap mmol/L BUN (7-17) mg/dL Creatinine (0.52-1.04) mg/dL Est GFR (CKD-EPI)AfAm (>60 ml/min/1.73 sqM) Est GFR (CKD-EPI)NonAf (>60 ml/min/1.73 sqM) Glucose (74-99) mg/dL Plasma Lactic Acid Edwin (0.7-2.0) mmol/L Calcium (8.4-10.2) mg/dL Total Bilirubin (0.2-1.3) mg/dL AST (14-36) U/L ALT (9-52) U/L Alkaline Phosphatase (38-126) U/L Total Protein (6.3-8.2) g/dL Albumin (3.5-5.0) g/dL Amylase (30-110) U/L Lipase (23-300) U/L Urine Color Yellow Urine Appearance Cloudy H (Clear) Urine pH 5.5 (5.0-8.0) Ur Specific [place] 1.014 (1.001-1.035) Urine Protein 1+ H (Negative) Urine Glucose (UA) 3+ H (Negative) Urine Ketones Negative (Negative) Urine Blood Trace H (Negative) Urine Nitrite Negative (Negative) Urine Bilirubin Negative (Negative) Urine Urobilinogen <2.0 (<2.0) mg/dL Ur Leukocyte Esterase Small H (Negative) Urine WBC 117 H (0-5) /hpf Ur Squamous Epith Cells 1 (0-4) /hpf Urine Bacteria Occasional H (None) /hpf Urine Mucus Occasional H (None) /hpf Disposition Clinical Impression: Sarcoma, Urinary tract infection, Sepsis Disposition: ADMITTED IP TO THIS HOSP Condition: Stable Is patient prescribed a controlled substance at d/c from ED?: No Referrals: Carlos Ling MD [Primary Care Provider] - 1-2 days Decision to Admit Reason: Admit from EC Decision Date: 07/22/18 Decision Time: 15:46
[2018-07-22 14:14] LABS: Anisocytosis Slight; HGB 10.2 gm/dL (11.4-16.0); MCH 27.7 pg (25.0-35.0); MCHC 31.8 g/dL (31.0-37.0); MCV 87.1 fL (80.0-100.0); Mean Platelet Volume 7.8; RBC 3.68 m/uL (3.80-5.40); RDW 19.5 % (11.5-15.5)
[2018-07-22] MEDS ORDERED: ONDANSETRON 4 MG/2 ML VIAL IVP STA (14:20)
[2018-07-22 14:24] LABS: Albumin 3.7 g/dL (3.5-5.0); Calcium 9.2 mg/dL (8.4-10.2); Potassium 4.4 mmol/L (3.5-5.1); Total Bilirubin 0.8 mg/dL (0.2-1.3); Total Protein 6.3 g/dL (6.3-8.2)
[2018-07-22 14:41] LABS: INR 0.9 (<1.2); Prothrombin Time 9.4 sec (9.0-12.0)
[2018-07-22 14:47] LABS: Partial Thromboplastin Time 21.8 sec (22.0-30.0)
[2018-07-22 14:52] LABS: Appearance,Urine Cloudy (Clear); Bacteria,Urine Occasional /hpf; Bilirubin,Urine Negative (Negative); Blood,Urine Trace (Negative); Color,Urine Yellow; Glucose,Urine (UA) 3+ (Negative); Ketones,Urine Negative (Negative); Leukocyte Esterase,Urine Small (Negative); Mucus,Urine Occasional /hpf; Nitrite,Urine Negative (Negative); PH, Urine 5.5 (5.0-8.0); Protein,Urine 1+ (Negative); Specific Gravity,Urine 1.014 (1.001-1.035); Squamous Epithelial Cell,Urine 1 /hpf (0-4); Urobilinogen,Urine <2.0 mg/dL (<2.0); WBC,Urine 117 /hpf (0-5)
[2018-07-22] MEDS ORDERED: VANCOMYCIN IV PER PHARMACY 1 EACH MISC MISCELLANE PRN (14:53)
[2018-07-22 14:57] LABS: Platelet Count 76 k/uL (150-450)
[2018-07-22] MEDS ORDERED: VANCOMYCIN 1,500 MG in SODIUM CHLORIDE 0.9% 250 ML IVPB STA (14:57)
[2018-07-22 14:58] LABS: Polychromasia Present
--- NOTE | 2018-07-22 15:00 | XR ---
EXAMINATION TYPE: XR chest 2V DATE OF EXAM: 07/22/2018 COMPARISON: 01/11/2018 HISTORY: Abdominal pain TECHNIQUE: Frontal and lateral views of the chest are obtained. FINDINGS: Heart and mediastinum are normal. Lungs are clear of infiltrate. There is no pleural effus ion. Bony thorax is intact. Pulmonary vascularity is normal. IMPRESSION: Normal chest. No change.
--- NOTE | 2018-07-22 15:05 | XR ---
EXAMINATION TYPE: XR KUB DATE OF EXAM: 07/22/2018 COMPARISON: 02/01/2018 HISTORY: Abdominal pain TECHNIQUE: 2 views upright. FINDINGS: There is no sign of intestinal obstruction or pneumoperitoneum. There are numerous surgical clips in the pelvis. There are no pathologic calcifications over the kidneys. Lung bases are clear. There is no evidence of a mass. IMPRESSION: Nonacute abdomen. There is removal of the left ureteral stent compared to old exam.
[2018-07-22 15:06] LABS: Band Neutrophils % 3 %; Lymphocytes # (M) 0.75 k/uL (1.0-4.8); Metamyelocytes % 2 %; Monocytes # (M) 0.45 k/uL (0-1.0); Myelocytes # (M) 0.45 k/uL (0); Myelocytes % 3 %; Neutrophils % (M) 86 %; Nucleated Red Blood Cells 0 /100 WBC (0-0); Total Cells Counted 200
[2018-07-22] MEDS ORDERED: ACETAMINOPHEN TAB 325 MG TAB PO PRN (15:43)
[2018-07-22] MEDS ORDERED: NALOXONE 0.4 MG/ML 1 ML VIAL IV PRN (15:43)
[2018-07-22] MEDS: HYDROmorphone 1 MG/ML 1 ML SYRINGE IVP PRN ×3 (16:08→23:06)
[2018-07-22] MEDS: SODIUM CHLORIDE 0.9% 1,000 ML IV SCH (16:09)
[2018-07-22 17:27] LABS: Glucose,Whole Blood 161 mg/dL (75-99)
[2018-07-22] MEDS ORDERED: MAG HYDROX/AL HYDROX/SIMETH 30 ML, diphenhydrAMINE ELIXIR 75 MG, LIDOCAINE VISCOUS 30 ML PO PRN ×3 (18:02)
--- NOTE | 2018-07-22 18:02 | P.CONS ---
History of Present Illness - Reason for Consult Consult date: 07/22/18 Liposarcoma Requesting physician: Bay Montero Jr - Chief Complaint Fever - History of Present Illness Ms. Mcrae is a very pleasant 57-year-old female with a history of liposarcoma , follows with Dr. Mukherjee, here for fevers. She has been having fevers and chills for the past 2-3 days as well as abdominal discomfort. Her last chemotherapy was about 11 days ago. She was recently seen in the clinic prior to her symptoms developing. She called earlier today and was advised to go to the ER where her CBC showed CBC 15, hemoglobin 10.2, platelets 76, normal CMP, and UA consistent with a UTI. Chest x-ray and abdominal x-ray were negative. She was started on antibiotics and admitted with oncology on consult. Her oncologic history starts in December 2016 when she presented with progressive difficulty with urination and defecation over the previous 4-[address] of the abdomen and pelvis showed a 14 x 9 cm pelvic mass in the midline extending to the pelvic floor. Colonoscopy showed extrinsic compression. 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 CT postoperatively of the chest showed borderline right bronchial adenopathy and bilateral lower lobe atelectasis as well as small effusions. She subsequently went to [facility] sarcoma clinic and adjuvant chemotherapy with Adriamycin and ifosfamide was recommended which she received here locally by Dr. Mukherjee. She completed 4 cycles through 04/2017 and was referred back to [facility] for radiation followed by radical surgery completed on 09/2017. Course was complicated by DVT and 01/2018, started on Xarelto. she subsequently had a CT on 04/11/18 that showed a 3 x 3 x 2.5 cm mass in the sacrum at S1 and chemotherapy with eribulin was recommended. repeat CT showed fairly rapid growth in her pelvic mass and her treatment was changed to Gemzar with Taxotere, which she has received 2 cycles of so far, last dose on 07/11/18. She received this 2 weeks on and 1 week off and this has been her week off. Review of Systems All systems: negative Constitutional: Reports as per HPI Past Medical History Past Medical History: Asthma, Cancer, Diabetes Mellitus, Fibromyalgia, GERD/ Reflux, Hyperlipidemia, Hypertension, Osteoarthritis (OA), Renal Disease Additional Past Medical History / Comment(s): Liposarcoma 12/31/16 with pelvic mass removal, IDDM type II, L elbow fracture-surgery/bone removal, arthritis bilateral knees/shoulders/L elbow, DDD- cervical spine and upper back, lower spinal stenosis, bilateral tinnitis, neuropathy chin and arms at times. 10/15 second mass removed in pelvic area. History of Any Multi-Drug Resistant Organisms: None Reported Past Surgical History: Adenoidectomy, Appendectomy, Bowel Resection, Section, Hysterectomy, Orthopedic Surgery, Tonsillectomy Additional Past Surgical History / Comment(s): Exploratory lap with pelvic mass removal, port placement, kidney stent/removed, D&C, right lateral salpingo- oophorectomy, colonoscopy, umbilical hernia repair, L knee arthroscopy, L elbow implant then bone removal, third molar removal Past Anesthesia/Blood Transfusion Reactions: Postoperative Nausea & Vomiting ( PONV) Past Psychological History: Anxiety Smoking Status: Never smoker Past Alcohol Use History: None Reported Past Drug Use History: None Reported - Past Family History Mother Family Medical History: Cancer Additional Family Medical History / Comment(s): eye cancer, heart disease Father Additional Family Medical History / Comment(s): ALS, . Sister(s) Additional Family Medical History / Comment(s): ALS - Medications and Allergies Home Medications Medication Instructions Recorded Confirmed Type ALPRAZolam [Xanax] 0.25 mg PO Q6H PRN 12/31/16 07/22/18 History Albuterol Sulfate [Proair Hfa] 2 puff INHALATION RT-Q6H PRN 12/31/16 07/22/18 History Atorvastatin [Lipitor] 20 mg PO HS 12/31/16 07/22/18 History Famotidine [Pepcid] 20 mg PO DAILY 12/31/16 07/22/18 History Fenofibrate [Lofibra] 160 mg PO DAILY 12/31/16 07/22/18 History Loratadine [Claritin] 10 mg PO QAM 12/31/16 07/22/18 History Montelukast [Singulair] 10 mg PO DAILY 12/31/16 07/22/18 History metFORMIN HCL ER [Glucophage Xr] 500 mg PO BID 12/31/16 07/22/18 History Gabapentin [Neurontin] 400 mg PO TID 12/18/17 07/22/18 History Insulin Glargine,Hum.rec.anlog 100 unit SQ HS 12/18/17 07/22/18 History [[place] Solostar] Polyethylene Glycol 3350 [Miralax] 17 gm PO DAILY PRN 12/18/17 07/22/18 History HYDROcodone/APAP 7.5-325MG [[place] 1 tab PO Q4HR PRN 01/11/18 07/22/18 History 7.5-325] Aspirin [Adult Low Dose Aspirin EC] 81 mg PO DAILY 01/24/18 07/22/18 History Enalapril [Vasotec] 2.5 mg PO DAILY 01/24/18 07/22/18 History Metoprolol Succinate (ER) [Toprol 25 mg PO BID 07/10/18 07/22/18 History Xl] Ibuprofen [Motrin] 800 mg PO TID PRN 07/22/18 07/22/18 History Insulin Aspart [NovoLOG 40 unit SQ AC-TID 07/22/18 07/22/18 History (formulary)] Insulin Aspart [NovoLOG See Protocol SQ HS 07/22/18 07/22/18 History (formulary)] Allergies Allergy/AdvReac Type Severity Reaction Status Date / Time Penicillins Allergy Intermediate Dyspnea/Rolando Verified 07/22/18 13:37 h Sulfa (Sulfonamide Allergy Intermediate Rash/Hives Verified 07/22/18 13:37 Antibiotics) cefepime Allergy Mild Unknown Verified 07/22/18 13:37 artificial sweetner Allergy Severe Rash/Hives Uncoded 07/10/18 14:56 Physical Exam Vitals: Vital Signs Temp Pulse Resp BP Pulse Ox 07/22/18 16:16 103.0 F H 107 H 17 112/60 96 07/22/18 13:16 102.5 F H 101 H 18 96/58 93 L Intake and Output 07/22/18 07/22/18 07/22/18 06:59 14:59 22:59 Other: Weight 97.522 kg General: In no acute distress. HEENT: Mucosa moist. Neck: Neck supple. Lymph: No cervical/supraclavicular LAD. Lungs: CTA-B without wheezing or rhonchi. Heart: RRR. No LE edema. Abdomen: Soft, nontender, nondistended, with positive bowel sounds. MSK: 4/4 strength in all 4 extremities. Neuro: Alert and oriented 3. No obvious gross neurologic deficits. Skin: No jaundice or rash. Psych: Appropriate affect. Results CBC & Chem 7: 07/22/18 13:52 07/22/18 13:52 Labs: Abnormal Lab Results - Last 24 Hours (Table) 07/22/18 07/22/18 07/22/18 Range/Units 13:52 13:52 13:52 WBC 15.0 H (3.8-10.6) k/uL RBC 3.68 L (3.80-5.40) m/uL Hgb 10.2 L D (11.4-16.0) gm/dL Hct 32.0 L (34.0-46.0) % RDW 19.5 H (11.5-15.5) % Plt Count 76 L D (150-450) k/uL Neutrophils # (Manual) 13.30 H (1.3-7.7) k/uL Lymphocytes # (Manual) 0.75 L (1.0-4.8) k/uL Metamyelocytes # (Man) 0.30 H (0) k/uL Myelocytes # (Manual) 0.45 H (0) k/uL APTT 21.8 L (22.0-30.0) sec Glucose 204 H (74-99) mg/dL Urine Appearance (Clear) Urine Protein (Negative) Urine Glucose (UA) (Negative) Urine Blood (Negative) Ur Leukocyte Esterase (Negative) Urine WBC (0-5) /hpf Urine Bacteria (None) /hpf Urine Mucus (None) /hpf 07/22/18 Range/Units 14:17 WBC (3.8-10.6) k/uL RBC (3.80-5.40) m/uL Hgb (11.4-16.0) gm/dL Hct (34.0-46.0) % RDW (11.5-15.5) % Plt Count (150-450) k/uL Neutrophils # (Manual) (1.3-7.7) k/uL Lymphocytes # (Manual) (1.0-4.8) k/uL Metamyelocytes # (Man) (0) k/uL Myelocytes # (Manual) (0) k/uL APTT (22.0-30.0) sec Glucose (74-99) mg/dL Urine Appearance Cloudy H (Clear) Urine Protein 1+ H (Negative) Urine Glucose (UA) 3+ H (Negative) Urine Blood Trace H (Negative) Ur Leukocyte Esterase Small H (Negative) Urine WBC 117 H (0-5) /hpf Urine Bacteria Occasional H (None) /hpf Urine Mucus Occasional H (None) /hpf Chest x-ray: report reviewed Abdominal x-ray: report reviewed Assessment and Plan Assessment: 1. Sepsis 2. UTI 3. Anemia and thrombocytopenia, chemotherapy and infection related 4. Leukocytosis due to infection 5. Mucositis due to chemotherapy 6. Liposarcoma Plan: Ms. Mcrae is a very pleasant 57-year-old female with a history of liposarcoma who is here for fevers and chills. She is on chemotherapy with Gemzar and Taxotere, last dose on 07/11/18, for her liposarcoma. She has been having fevers and chills for last couple days and workup in the ER revealed mild leukocytosis, anemia and thrombocytopenia, and UA consistent with UTI. Chest x- ray and abdominal x-ray unremarkable. CMP unremarkable. She is on antibiotics for her infection. As for her malignancy will hold off on chemotherapy until her infection improves and she is discharged. Her next dose is due on 07/26/18 however will possibly delay this if needed. Otherwise continue supportive transfusion for hemoglobin less than 7 or platelets less than 15 or acute bleeding. Leukocytosis reactive due to her infection. Anemia from cytopenia for due to infection as well as bone marrow suppression from chemotherapy. Agree with antibiotics. Mentions she has multiple drug allergies. Defer to primary team and possibly ID regarding ABx management. She also has some mucositis, magic mouth wash prn. Discussed with the patient and her and family at bedside and they were agreeable to the plan. All of their questions were answered.
[2018-07-22] MEDS ORDERED: ALBUTEROL NEBULIZED 2.5 MG/3 ML INHALATION PRN (18:26)
[2018-07-22] MEDS: INSULIN DETEMIR 100 UNIT/ML 10 ML VIAL SQ SCH (21:32)
[2018-07-22] MEDS: metFORMIN 500 MG TAB PO SCH (21:32)
[2018-07-22] MEDS: METOPROLOL SUCCINATE (ER) 25 MG TAB.ER.24H PO SCH (21:33)
[2018-07-22] MEDS: GABAPENTIN 400 MG CAP PO SCH (21:33)
[2018-07-22] MEDS: ATORVASTATIN 20 MG TAB PO SCH (21:33)
[2018-07-22] MEDS: INSULIN ASPART 100 UNIT/ML 1 ML 10 ML VIAL SQ SCH (21:33)
[2018-07-22] MEDS: VANCOMYCIN 1,750 MG in SODIUM CHLORIDE 0.9% 500 ML 500 ML IVPB SCH (21:34)
[2018-07-22 21:40] LABS: Glucose,Whole Blood 188 mg/dL (75-99)
[2018-07-23] MEDS: SODIUM CHLORIDE 0.9% 1,000 ML IV SCH ×3 (01:07→15:35)
[2018-07-23 02:53] LABS: Glucose,Whole Blood 219 mg/dL (75-99)
[2018-07-23] MEDS ORDERED: ONDANSETRON 4 MG/2 ML VIAL IVP PRN (04:21)
[2018-07-23 05:47] LABS: Glucose,Whole Blood 209 mg/dL (75-99)
[2018-07-23] MEDS: INSULIN ASPART 100 UNIT/ML 1 ML 10 ML VIAL SQ SCH ×7 (06:43→20:45)
[2018-07-23] MEDS: metFORMIN 500 MG TAB PO SCH ×2 (07:14→17:21)
[2018-07-23] MEDS: LORATADINE 10 MG TAB PO SCH (09:06)
[2018-07-23] MEDS: LISINOPRIL 5 MG TAB PO SCH (09:06)
[2018-07-23] MEDS: METOPROLOL SUCCINATE (ER) 25 MG TAB.ER.24H PO SCH ×2 (09:07→20:43)
[2018-07-23] MEDS: MONTELUKAST 10 MG TAB PO SCH (09:07)
[2018-07-23] MEDS: FENOFIBRATE 160 MG TAB PO SCH (09:07)
[2018-07-23] MEDS: VANCOMYCIN 1,750 MG in SODIUM CHLORIDE 0.9% 500 ML 500 ML IVPB SCH ×2 (09:07→20:45)
[2018-07-23] MEDS: ASPIRIN 81 MG PO SCH (09:07)
[2018-07-23] MEDS: GABAPENTIN 400 MG CAP PO SCH ×3 (09:07→20:43)
[2018-07-23] MEDS: FAMOTIDINE 20 MG TAB PO SCH (09:08)
[2018-07-23] MEDS: HYDROmorphone 0.5 MG/0.5 ML SYRINGE IVP PRN ×2 (09:14→15:34)
--- NOTE | 2018-07-23 10:16 | P.HPIM ---
<Bridget Mckeon A - Last Filed: 07/23/18 10:00> History of Present Illness H&P Date: 07/23/18 Chief Complaint: fever, hematuria, right lower quadrant pain 57-year-old female with a past medical history significant for liposarcoma, who presented to the emergency room with a chief complaint of fevers. chest x-ray completed in the emergency room was negative for an acute process. KUB abdomen revealed removal of left ureteral stent compared to old exam. No acute process. Laboratory data upon admission revealed white count 15.0. Hemoglobin 10.2. Platelet count 76. BUN 16. Creatinine 0.94. Glucose 204. Lactic acid 1.6. Urinalysis revealed cloudy yellow urine, 1+ protein, 3+ glucose, trace blood, small leukocyte esterase, 3 BC 117, occasional bacteria and mucus. The patient was started on empiric antibiotics and admitted to the hospital under the care of Dr. Montero. Consultations were placed to oncology. REVIEW OF SYSTEMS: Those systems with pertinent positive or pertinent negative responses have been documented in the HPI PHYSICAL EXAM: GENERAL: This is a 57-year-old female in no apparent distress at the time of examination. Pleasant and cooperative. HEENT: Head is atraumatic, normocephalic. Pupils are equal, round, and reactive to light. Sclerae anicteric. Conjunctivae are clear. Mucus membranes of the mouth are moist. Neck is supple. RESPIRATORY: Clear to auscultation. No wheezes, rales, or rhonchi. No use of accessory muscles. Patient maintaining oxygen saturation greater than 92%. No chest wall tenderness is noted on palpation or with deep breathing. CARDIOVASCULAR: Regular rate and rhythm. S1 and S2 noted. No systolic or diastolic murmur auscultated. No JVD noted. No S3 or S4 noted. GASTROINTESTINAL: No distention noted. Abdomen soft and round. Normal active bowel sounds auscultated x 4 quadrants. No pain or tenderness noted upon palpation. INTEGUMENTARY: No cyanosis. No jaundice. No rashes noted. No cellulitis noted. EXTREMITIES: 2+ peripheral pulses. No evidence of peripheral edema. No calf tenderness noted. decreased muscle tone NEUROLOGIC: Cranial nerves II-XII grossly intact. PSYCHIATRIC: Awake, alert, and oriented X 3. Appropriate affect. Intact judgement and insight. ASSESSMENT: Urinary tract infection, present on admission, urine culture pending Sepsis, present on admission, secondary to above history of liposarcoma, diagnosed in 2017, status post chemotherapy and radiation History of exploratory laparotomy in December 2016 with excision of pelvic mass CT 04/11/2018 revealing 3 x 3 x 2.5 cm mass in the sacrum at S1 History of second surgical operation for tumor resection with abdominal perineal resection of the distal colon, ileostomy creation and resection of distal left ureter, September 2017 Anemia and thrombocytopenia, secondary to chemotherapy History of nephrolithiasis Diabetes mellitus, type II Hypertension Hyperlipidemia Gastroesophageal reflux disease Osteoarthritis PLAN: Oncology on consult. Appreciate recommendations and input Patient's chemotherapy on hold at this time Continue antibiotics Await final urine culture results Home meds as appropriate Monitor labs GI prophylaxis: Protonix 40 mg PO Daily DVT prophylaxis: SCDs to bilateral LE Monitor vital signs and address as appropriate Discharge planning: Patient to return home when stable Further recommendations pending patient's course Nurse practitioner note has been reviewed by physician. Signing provider agrees with the documented findings, assessment, and plan of care. Past Medical History Past Medical History: Asthma, Cancer, Diabetes Mellitus, Fibromyalgia, GERD/ Reflux, Hyperlipidemia, Hypertension, Osteoarthritis (OA), Renal Disease Additional Past Medical History / Comment(s): Liposarcoma 12/31/16 with pelvic mass removal, IDDM type II, L elbow fracture-surgery/bone removal, arthritis bilateral knees/shoulders/L elbow, DDD- cervical spine and upper back, lower spinal stenosis, bilateral tinnitis, neuropathy chin and arms at times. 10/15 second mass removed in pelvic area. History of Any Multi-Drug Resistant Organisms: None Reported Past Surgical History: Adenoidectomy, Appendectomy, Bowel Resection, Section, Hysterectomy, Orthopedic Surgery, Tonsillectomy Additional Past Surgical History / Comment(s): Exploratory lap with pelvic mass removal, port placement, kidney stent/removed, D&C, right lateral salpingo- oophorectomy, colonoscopy, umbilical hernia repair, L knee arthroscopy, L elbow implant then bone removal, third molar removal Past Anesthesia/Blood Transfusion Reactions: Postoperative Nausea & Vomiting ( PONV) Past Psychological History: Anxiety Smoking Status: Never smoker Past Alcohol Use History: None Reported Past Drug Use History: None Reported - Past Family History Mother Family Medical History: Cancer Additional Family Medical History / Comment(s): eye cancer, heart disease Father Additional Family Medical History / Comment(s): ALS, . Sister(s) Additional Family Medical History / Comment(s): ALS - Medications and Allergies Home Medications Medication Instructions Recorded Confirmed Type ALPRAZolam [Xanax] 0.25 mg PO Q6H PRN 12/31/16 07/22/18 History Albuterol Sulfate [Proair Hfa] 2 puff INHALATION RT-Q6H PRN 12/31/16 07/22/18 History Atorvastatin [Lipitor] 20 mg PO HS 12/31/16 07/22/18 History Famotidine [Pepcid] 20 mg PO DAILY 12/31/16 07/22/18 History Fenofibrate [Lofibra] 160 mg PO DAILY 12/31/16 07/22/18 History Loratadine [Claritin] 10 mg PO QAM 12/31/16 07/22/18 History Montelukast [Singulair] 10 mg PO DAILY 12/31/16 07/22/18 History metFORMIN HCL ER [Glucophage Xr] 500 mg PO BID 12/31/16 07/22/18 History Gabapentin [Neurontin] 400 mg PO TID 12/18/17 07/22/18 History Insulin Glargine,Hum.rec.anlog 100 unit SQ HS 12/18/17 07/22/18 History [Toujeo Solostar] Polyethylene Glycol 3350 [Miralax] 17 gm PO DAILY PRN 12/18/17 07/22/18 History HYDROcodone/APAP 7.5-325MG [[place] 1 tab PO Q4HR PRN 01/11/18 07/22/18 History 7.5-325] Aspirin [Adult Low Dose Aspirin EC] 81 mg PO DAILY 01/24/18 07/22/18 History Enalapril [Vasotec] 2.5 mg PO DAILY 01/24/18 07/22/18 History Metoprolol Succinate (ER) [Toprol 25 mg PO BID 07/10/18 07/22/18 History Xl] Ibuprofen [Motrin] 800 mg PO TID PRN 07/22/18 07/22/18 History Insulin Aspart [NovoLOG 40 unit SQ AC-TID 07/22/18 07/22/18 History (formulary)] Insulin Aspart [NovoLOG See Protocol SQ HS 07/22/18 07/22/18 History (formulary)] Allergies Allergy/AdvReac Type Severity Reaction Status Date / Time Penicillins Allergy Intermediate Dyspnea/Rolando Verified 07/22/18 13:37 h Sulfa (Sulfonamide Allergy Intermediate Rash/Hives Verified 07/22/18 13:37 Antibiotics) cefepime Allergy Mild Unknown Verified 07/22/18 13:37 artificial sweetner Allergy Severe Rash/Hives Uncoded 07/10/18 14:56 Physical Exam Vitals: Vital Signs Temp Pulse Pulse Resp BP BP Pulse Ox 07/23/18 08:00 100.7 F H 96 17 107/50 96 07/23/18 03:29 99 18 07/23/18 03:28 98.0 F 99 18 120/72 100 07/22/18 23:55 102 H 18 07/22/18 23:53 98.5 F 102 H 18 114/70 97 07/22/18 22:00 99.7 F H 07/22/18 20:00 100.4 F H 114 H 18 105/50 94 L 07/22/18 17:50 112 H 07/22/18 16:37 98.6 F 116 H 18 109/70 97 07/22/18 16:16 103.0 F H 107 H 17 112/60 96 07/22/18 13:16 102.5 F H 101 H 18 96/58 93 L Intake and Output 07/22/18 07/23/18 07/23/18 22:59 06:59 14:59 Intake Total 120 500 222 Output Total 0 Balance 120 500 222 Intake: Intake, IV Titration 500 Amount Vancomycin 1,750 mg In 500 Sodium Chloride 0.9% 500 ml 500 ml @ 167 mls/hr IVPB Q12HR [facility] Rx#: [id number] Oral 120 222 Output: Urine 0 Other: Voiding Method Toilet Toilet Toilet # Voids 1 2 Weight 99 kg Results CBC & Chem 7: 07/22/18 13:52 07/22/18 13:52 Labs: Abnormal Lab Results - Last 24 Hours (Table) 07/22/18 07/22/18 07/22/18 Range/Units 13:52 13:52 13:52 WBC 15.0 H (3.8-10.6) k/uL RBC 3.68 L (3.80-5.40) m/uL Hgb 10.2 L D (11.4-16.0) gm/dL Hct 32.0 L (34.0-46.0) % RDW 19.5 H (11.5-15.5) % Plt Count 76 L D (150-450) k/uL Neutrophils # (Manual) 13.30 H (1.3-7.7) k/uL Lymphocytes # (Manual) 0.75 L (1.0-4.8) k/uL Metamyelocytes # (Man) 0.30 H (0) k/uL Myelocytes # (Manual) 0.45 H (0) k/uL APTT 21.8 L (22.0-30.0) sec Glucose 204 H (74-99) mg/dL POC Glucose (mg/dL) (75-99) mg/dL Urine Appearance (Clear) Urine Protein (Negative) Urine Glucose (UA) (Negative) Urine Blood (Negative) Ur Leukocyte Esterase (Negative) Urine WBC (0-5) /hpf Urine Bacteria (None) /hpf Urine Mucus (None) /hpf 07/22/18 07/22/18 07/22/18 Range/Units 14:17 17:20 21:31 WBC (3.8-10.6) k/uL RBC (3.80-5.40) m/uL Hgb (11.4-16.0) gm/dL Hct (34.0-46.0) % RDW (11.5-15.5) % Plt Count (150-450) k/uL Neutrophils # (Manual) (1.3-7.7) k/uL Lymphocytes # (Manual) (1.0-4.8) k/uL Metamyelocytes # (Man) (0) k/uL Myelocytes # (Manual) (0) k/uL APTT (22.0-30.0) sec Glucose (74-99) mg/dL POC Glucose (mg/dL) 161 H 188 H (75-99) mg/dL Urine Appearance Cloudy H (Clear) Urine Protein 1+ H (Negative) Urine Glucose (UA) 3+ H (Negative) Urine Blood Trace H (Negative) Ur Leukocyte Esterase Small H (Negative) Urine WBC 117 H (0-5) /hpf Urine Bacteria Occasional H (None) /hpf Urine Mucus Occasional H (None) /hpf 07/23/18 07/23/18 Range/Units 02:52 05:42 WBC (3.8-10.6) k/uL RBC (3.80-5.40) m/uL Hgb (11.4-16.0) gm/dL Hct (34.0-46.0) % RDW (11.5-15.5) % Plt Count (150-450) k/uL Neutrophils # (Manual) (1.3-7.7) k/uL Lymphocytes # (Manual) (1.0-4.8) k/uL Metamyelocytes # (Man) (0) k/uL Myelocytes # (Manual) (0) k/uL APTT (22.0-30.0) sec Glucose (74-99) mg/dL POC Glucose (mg/dL) 219 H 209 H (75-99) mg/dL Urine Appearance (Clear) Urine Protein (Negative) Urine Glucose (UA) (Negative) Urine Blood (Negative) Ur Leukocyte Esterase (Negative) Urine WBC (0-5) /hpf Urine Bacteria (None) /hpf Urine Mucus (None) /hpf Microbiology - Last 24 Hours (Table) 07/22/18 14:17 Urine Culture - Preliminary Urine,Voided Thrombosis Risk Factor Assmnt - Choose All That Apply Each Factor Represents 1 point: Obesity (BMI >25) Thrombosis Risk Factor Assessment Total Risk Factor Score: 1 Thrombosis Risk Factor Assessment Level: Low Risk <Bay Montero Jr - Last Filed: 07/24/18 10:51> Physical Exam Osteopathic Statement: *. No significant issues noted on an osteopathic structural exam other than those noted in the History and Physical/Consult. Vitals: Vital Signs Temp Pulse Resp BP Pulse Ox 07/24/18 03:10 66 18 07/24/18 03:09 98.5 F 66 18 104/64 98 07/24/18 00:00 98.4 F 90 18 103/60 98 07/23/18 20:00 98.8 F 94 18 109/69 98 07/23/18 15:32 97.9 F 84 16 105/65 100 07/23/18 14:36 17 07/23/18 11:29 99.5 F 95 17 115/70 97 07/23/18 10:56 17 Intake and Output 07/23/18 07/24/18 07/24/18 22:59 06:59 14:59 Intake Total 480 Balance 480 Intake: Oral 480 Other: Voiding Method Toilet Toilet # Voids 2 Weight 100.1 kg Results CBC & Chem 7: 07/22/18 13:52 07/24/18 07:34 Labs: Abnormal Lab Results - Last 24 Hours (Table) 07/22/18 07/23/18 07/23/18 Range/Units 13:52 11:44 16:44 Chloride (98-107) mmol/L Glucose (74-99) mg/dL POC Glucose (mg/dL) 109 H 224 H (75-99) mg/dL Hemoglobin A1c 10.9 H (4.0-6.0) % Calcium (8.4-10.2) mg/dL 07/24/18 07/24/18 Range/Units 06:04 07:34 Chloride 108 H (98-107) mmol/L Glucose 197 H (74-99) mg/dL POC Glucose (mg/dL) 253 H (75-99) mg/dL Hemoglobin A1c (4.0-6.0) % Calcium 8.1 L (8.4-10.2) mg/dL Microbiology - Last 24 Hours (Table) 07/22/18 14:17 Urine Culture - Final Urine,Voided 07/22/18 13:52 Blood Culture - Preliminary Blood No Growth after 24 hours
[2018-07-23 11:45] LABS: Glucose,Whole Blood 109 mg/dL (75-99)
[2018-07-23] MEDS: LEVOFLOXACIN 750MG-D5W PMX 750 MG in DEXTROSE/WATER 1 150ML.BAG IVPB SCH (15:35)
[2018-07-23 16:47] LABS: Glucose,Whole Blood 224 mg/dL (75-99)
[2018-07-23] MEDS: HYDROmorphone 1 MG/ML 1 ML SYRINGE IVP PRN (19:39)
[2018-07-23 20:29] LABS: Hemoglobin A1C 10.9 % (4.0-6.0)
[2018-07-23 20:40] LABS: Glucose,Whole Blood 82 mg/dL (75-99)
[2018-07-23] MEDS: ATORVASTATIN 20 MG TAB PO SCH (20:42)
[2018-07-23] MEDS: INSULIN DETEMIR 100 UNIT/ML 10 ML VIAL SQ SCH (20:45)
[2018-07-24] MEDS: HYDROmorphone 1 MG/ML 1 ML SYRINGE IVP PRN ×4 (00:07→19:34)
[2018-07-24 06:06] LABS: Glucose,Whole Blood 253 mg/dL (75-99)
[2018-07-24] MEDS: INSULIN ASPART 100 UNIT/ML 1 ML 10 ML VIAL SQ SCH ×7 (06:51→22:57)
[2018-07-24] MEDS: metFORMIN 500 MG TAB PO SCH ×2 (07:00→19:16)
[2018-07-24] MEDS: PANTOPRAZOLE 40 MG TABLET PO SCH (07:00)
[2018-07-24] MEDS ORDERED: VANCOMYCIN TROUGH DUE 1 EACH MISC MISCELLANE ONE (08:00)
[2018-07-24 09:00] LABS: Calcium 8.1 mg/dL (8.4-10.2)
[2018-07-24] MEDS: SODIUM CHLORIDE 0.9% 1,000 ML IV SCH ×2 (09:26→19:47)
[2018-07-24] MEDS: VANCOMYCIN 1,750 MG in SODIUM CHLORIDE 0.9% 500 ML 500 ML IVPB SCH (09:26)
[2018-07-24] MEDS: LORATADINE 10 MG TAB PO SCH (09:29)
[2018-07-24] MEDS: FENOFIBRATE 160 MG TAB PO SCH (09:29)
[2018-07-24] MEDS: GABAPENTIN 400 MG CAP PO SCH ×3 (09:29→19:35)
[2018-07-24] MEDS: ASPIRIN 81 MG PO SCH (09:29)
[2018-07-24] MEDS: MONTELUKAST 10 MG TAB PO SCH (09:29)
[2018-07-24] MEDS: LISINOPRIL 5 MG TAB PO SCH (09:29)
[2018-07-24] MEDS: METOPROLOL SUCCINATE (ER) 25 MG TAB.ER.24H PO SCH ×2 (09:29→19:35)
[2018-07-24] MEDS: FAMOTIDINE 20 MG TAB PO SCH (09:30)
--- NOTE | 2018-07-24 11:03 | P.PN ---
Subjective Progress Note Date: 07/24/18 Principal diagnosis: Hyperpyrexia, hematuria, right lower quadrant pain Date 07/24/2018 Jessica Candelaria 57-year-old female well-known to the practice with the significant history of liposarcoma who present presented to the emergency room with chief complaint of fevers X-ray is negative for acute process KUB of the abdomen revealed removal of left ureteral stent compared to old exam. White count 15, 000 hemoglobin 10.2 platelet count 76 nightly 16 creatinine 0.94 glucose 204 lactic acid is 1.6 patient states she's feeling much better today Objective - Vital Signs Vital signs: Vital Signs Temp 98.5 F 07/24/18 03:09 Pulse 66 07/24/18 03:10 Resp 18 07/24/18 03:10 BP 104/64 07/24/18 03:09 Pulse Ox 98 07/24/18 03:09 Intake & Output 07/23/18 07/24/18 07/24/18 18:59 06:59 18:59 Intake Total 820 Output Total 0 Balance 820 Weight 100.1 kg Intake: Oral 820 Output: Urine 0 Other: Voiding Method Toilet Toilet # Voids 2 - Exam General: [Patient awake, alert and oriented times 3. Patient in no acute distress.] HEENT: [PERRL. EOMI. No pharyngeal erythema or exudate.] Neck: [No adenopathy.] Cardiac: [Heart regular in rate and rhythm. No S3. No S4. No clicks, rubs. No murmur.] Lungs: [Clear to auscultation bilaterally.] Abdomen: [No mass. No organomegaly. Bowel sounds presnt and normoactive in all 4 quadrants.] Extremes: [No edema no cyanosis no claudication normal pulses] : [] Musculoskeletal: [No joint erythema, edema or tenderness.] Skin: [No rash.] Neurologic: [No lateralizing deficits. CN II - XII grossly intact.] Lymphatic: [No adenopathy.] - Labs CBC & Chem 7: 07/22/18 13:52 07/24/18 07:34 Labs: Abnormal Lab Results - Last 24 Hours (Table) 07/22/18 07/23/18 07/23/18 Range/Units 13:52 11:44 16:44 Chloride (98-107) mmol/L Glucose (74-99) mg/dL POC Glucose (mg/dL) 109 H 224 H (75-99) mg/dL Hemoglobin A1c 10.9 H (4.0-6.0) % Calcium (8.4-10.2) mg/dL 07/24/18 07/24/18 Range/Units 06:04 07:34 Chloride 108 H (98-107) mmol/L Glucose 197 H (74-99) mg/dL POC Glucose (mg/dL) 253 H (75-99) mg/dL Hemoglobin A1c (4.0-6.0) % Calcium 8.1 L (8.4-10.2) mg/dL Microbiology - Last 24 Hours (Table) 07/22/18 14:17 Urine Culture - Final Urine,Voided 07/22/18 13:52 Blood Culture - Preliminary Blood No Growth after 24 hours Assessment and Plan Assessment: Liposarcoma by history Sepsis, UTI Anemia thrombocytopenia chemotherapy and infection related Leukocytosis secondary to her UTI Plan This medically is [id number] female known to the practice with a history of liposarcoma was here for fever chills currently on chemotherapy for liposarcoma Mild leukocytosis and anemia thrombocytopenia UA consistent with urinary tract infection chest x-ray and abdominal x-ray unremarkable We'll stop Vanco continue Levaquin We'll follow closely Time with Patient: Greater than 30
[2018-07-24 12:46] LABS: Glucose,Whole Blood 98 mg/dL (75-99)
[2018-07-24 13:08] VITALS: BMI 33.5
[2018-07-24 16:05] LABS: Glucose,Whole Blood 112 mg/dL (75-99)
[2018-07-24] MEDS: LEVOFLOXACIN 750MG-D5W PMX 750 MG in DEXTROSE/WATER 1 150ML.BAG IVPB SCH (16:42)
[2018-07-24] MEDS: ALPRAZolam 0.25 MG TAB PO PRN ×2 (16:48→21:53)
[2018-07-24] MEDS: ATORVASTATIN 20 MG TAB PO SCH (19:35)
[2018-07-24 20:24] LABS: Glucose,Whole Blood 121 mg/dL (75-99)
[2018-07-24] MEDS: INSULIN DETEMIR 100 UNIT/ML 10 ML VIAL SQ SCH (22:57)
[2018-07-25 05:40] LABS: Glucose,Whole Blood 179 mg/dL (75-99)
[2018-07-25] MEDS: SODIUM CHLORIDE 0.9% 1,000 ML IV SCH (05:47)
[2018-07-25] MEDS: HYDROmorphone 1 MG/ML 1 ML SYRINGE IVP PRN ×2 (06:08→12:47)
[2018-07-25] MEDS: metFORMIN 500 MG TAB PO SCH (06:09)
[2018-07-25] MEDS: PANTOPRAZOLE 40 MG TABLET PO SCH (06:09)
[2018-07-25] MEDS: INSULIN ASPART 100 UNIT/ML 1 ML 10 ML VIAL SQ SCH ×4 (08:45→13:41)
[2018-07-25] MEDS: LORATADINE 10 MG TAB PO SCH (08:46)
[2018-07-25] MEDS: MONTELUKAST 10 MG TAB PO SCH (08:46)
[2018-07-25] MEDS: GABAPENTIN 400 MG CAP PO SCH (08:46)
[2018-07-25] MEDS: ASPIRIN 81 MG PO SCH (08:46)
[2018-07-25] MEDS: METOPROLOL SUCCINATE (ER) 25 MG TAB.ER.24H PO SCH (08:46)
[2018-07-25] MEDS: FAMOTIDINE 20 MG TAB PO SCH (08:46)
[2018-07-25] MEDS: LISINOPRIL 5 MG TAB PO SCH (08:46)
[2018-07-25] MEDS: FENOFIBRATE 160 MG TAB PO SCH (08:46)
[2018-07-25 09:04] VITALS: RESP 20
[2018-07-25 11:53] LABS: Glucose,Whole Blood 119 mg/dL (75-99)
--- NOTE | 2018-07-25 12:39 | P.PN ---
Subjective Progress Note Date: 07/25/18 Principal diagnosis: Hyperpyrexia, hematuria, right lower quadrant pain Date 07/24/2018 Jessica Candelaria 57-year-old female well-known to the practice with the significant history of liposarcoma who present presented to the emergency room with chief complaint of fevers X-ray is negative for acute process KUB of the abdomen revealed removal of left ureteral stent compared to old exam. White count 15, 000 hemoglobin 10.2 platelet count 76 nightly 16 creatinine 0.94 glucose 204 lactic acid is 1.6 patient states she's feeling much better today Objective - Vital Signs Vital signs: Vital Signs Temp 97.4 F L 07/25/18 08:45 Pulse 77 07/25/18 08:45 Resp 20 07/25/18 08:45 BP 102/53 07/25/18 08:45 Pulse Ox 97 07/25/18 08:45 Intake & Output 07/24/18 07/25/18 07/25/18 18:59 06:59 18:59 Intake Total 600 Balance 600 Weight 100.1 kg 101 kg Intake: Intake, IV Titration 600 Amount Sodium Chloride 0.9% 1, 600 000 ml @ 100 mls/hr IV . Q10H [facility] Rx#:[id number] Other: Voiding Method Toilet # Voids 2 2 1 - Exam General: [Patient awake, alert and oriented times 3. Patient in no acute distress.] HEENT: [PERRL. EOMI. No pharyngeal erythema or exudate.] Neck: [No adenopathy.] Cardiac: [Heart regular in rate and rhythm. No S3. No S4. No clicks, rubs. No murmur.] Lungs: [Clear to auscultation bilaterally.] Abdomen: [No mass. No organomegaly. Bowel sounds presnt and normoactive in all 4 quadrants.] Extremes: [No edema no cyanosis no claudication normal pulses] : [] Musculoskeletal: [No joint erythema, edema or tenderness.] Skin: [No rash.] Neurologic: [No lateralizing deficits. CN II - XII grossly intact.] Lymphatic: [No adenopathy.] - Labs CBC & Chem 7: 07/22/18 13:52 07/24/18 07:34 Labs: Abnormal Lab Results - Last 24 Hours (Table) 07/24/18 07/24/1807/25/18 Range/Units 16:00 20:22 05:39 POC Glucose (mg/dL) 112 H 121 H 179 H (75-99) mg/dL 07/25/18 Range/Units 11:43 POC Glucose (mg/dL) 119 H (75-99) mg/dL Microbiology - Last 24 Hours (Table) 07/22/18 13:52 Blood Culture - Preliminary Blood No Growth after 48 hours Assessment and Plan Assessment: Liposarcoma by history Sepsis, UTI Anemia thrombocytopenia chemotherapy and infection related Leukocytosis secondary to her UTI Plan This medically is [id number] female known to the practice with a history of liposarcoma was here for fever chills currently on chemotherapy for liposarcoma Mild leukocytosis and anemia thrombocytopenia UA consistent with urinary tract infection chest x-ray and abdominal x-ray unremarkable We'll stop Vanco continue Levaquin We'll follow closely Time with Patient: Greater than 30
[2018-07-25] MEDS: ALPRAZolam 0.25 MG TAB PO PRN (12:47)
[2018-07-25 12:55] VITALS: BP 103/62; PULSE 79; TEMP 97.2
--- NOTE | 2018-07-25 13:00 | P.DS ---
Providers Date of admission: 07/22/18 15:43 Expected date of discharge: 07/25/18 Attending physician: Bay Montero Consults: 07/22/18 15:43 Consult Physician Routine Consulting Provider: Pal Mukherjee Consult Reason/Comments: Liposarcoma, on chemo, sepsis Do you want consulting provider notified?: Yes Primary care physician: Carlos Ling Patient Condition at Discharge: Good Plan - Discharge Summary New Discharge Prescriptions: No Action metFORMIN HCL ER [Glucophage Xr] 500 mg PO BID ALPRAZolam [Xanax] 0.25 mg PO Q6H PRN PRN Reason: Anxiety/Insomnia Albuterol Sulfate [Proair Hfa] 2 puff INHALATION RT-Q6H PRN PRN Reason: Shortness Of Breath Fenofibrate [Lofibra] 160 mg PO DAILY Montelukast [Singulair] 10 mg PO DAILY Famotidine [Pepcid] 20 mg PO DAILY Atorvastatin [Lipitor] 20 mg PO HS Loratadine [Claritin] 10 mg PO QAM Polyethylene Glycol 3350 [Miralax] 17 gm PO DAILY PRN PRN Reason: Constipation Insulin Glargine,Hum.rec.anlog [Toujeo Solostar] 100 unit SQ HS Gabapentin [Neurontin] 400 mg PO TID HYDROcodone/APAP 7.5-325MG [[place] 7.5-325] 1 tab PO Q4HR PRN PRN Reason: Pain Enalapril [Vasotec] 2.5 mg PO DAILY Aspirin [Adult Low Dose Aspirin EC] 81 mg PO DAILY Metoprolol Succinate (ER) [Toprol Xl] 25 mg PO BID Ibuprofen [Motrin] 800 mg PO TID PRN PRN Reason: Pain Insulin Aspart [NovoLOG (formulary)] See Protocol SQ HS Insulin Aspart [NovoLOG (formulary)] 40 unit SQ AC-TID Discharge Medication List ALPRAZolam [Xanax] 0.25 mg PO Q6H PRN 12/31/16 [History] Albuterol Sulfate [Proair Hfa] 2 puff INHALATION RT-Q6H PRN 12/31/16 [History] Atorvastatin [Lipitor] 20 mg PO HS 12/31/16 [History] Famotidine [Pepcid] 20 mg PO DAILY 12/31/16 [History] Fenofibrate [Lofibra] 160 mg PO DAILY 12/31/16 [History] Loratadine [Claritin] 10 mg PO QAM 12/31/16 [History] Montelukast [Singulair] 10 mg PO DAILY 12/31/16 [History] metFORMIN HCL ER [Glucophage Xr] 500 mg PO BID 12/31/16 [History] Gabapentin [Neurontin] 400 mg PO TID 12/18/17 [History] Insulin Glargine,Hum.rec.anlog [Toujeo Solostar] 100 unit SQ HS 12/18/17 [ History] Polyethylene Glycol 3350 [Miralax] 17 gm PO DAILY PRN 12/18/17 [History] HYDROcodone/APAP 7.5-325MG [[place] 7.5-325] 1 tab PO Q4HR PRN 01/11/18 [History] Aspirin [Adult Low Dose Aspirin EC] 81 mg PO DAILY 01/24/18 [History] Enalapril [Vasotec] 2.5 mg PO DAILY 01/24/18 [History] Metoprolol Succinate (ER) [Toprol Xl] 25 mg PO BID 07/10/18 [History] Ibuprofen [Motrin] 800 mg PO TID PRN 07/22/18 [History] Insulin Aspart [NovoLOG (formulary)] 40 unit SQ AC-TID 07/22/18 [History] Insulin Aspart [NovoLOG (formulary)] See Protocol SQ HS 07/22/18 [History] Follow up Appointment(s)/Referral(s): Carlos Ling MD [Primary Care Provider] - 1-2 days
[2018-07-25 13:04] LABS: Anisocytosis Slight; Basophils % (A) 1 %; Eosinophils # (A) 0.1 k/uL (0-0.7); Eosinophils % (A) 2 %; HCT 28.8 % (34.0-46.0); HGB 9.1 gm/dL (11.4-16.0); Hypochromasia Moderate; Lymphocytes # (A) 0.6 k/uL (1.0-4.8); Lymphocytes % (A) 8 %; MCH 28.1 pg (25.0-35.0); MCHC 31.4 g/dL (31.0-37.0); MCV 89.4 fL (80.0-100.0); Mean Platelet Volume 7.6; Monocytes # (A) 0.4 k/uL (0-1.0); Monocytes % (A) 5 %; Neutrophils # (A) 6.2 k/uL (1.3-7.7); Neutrophils % (A) 83 %; Poikilocytosis Slight; RBC 3.23 m/uL (3.80-5.40); RDW 19.6 % (11.5-15.5); WBC 7.5 k/uL (3.8-10.6)
[2018-07-25 13:13] LABS: Platelet Count 147 k/uL (150-450)
--- NOTE | 2018-07-25 16:02 | P.PN ---
Subjective Progress Note Date: 07/25/18 Principal diagnosis: on chemo for liposarcoma Pt seen today in f/u, she is feeling better today and is looking forward to going home. No fevers, oral irritation is mild, thrush is better, she has supportive meds at home, she can drink well, food still has bad taste, no nausea, vomiting, SOB , cough, dysuria, hematuria, diarrhea, constipation, she is ambulating to the bathroom, no pain to report. Objective - Vital Signs Vital signs: Vital Signs Temp 97.2 F L 07/25/18 12:00 Pulse 79 07/25/18 12:00 Resp 20 07/25/18 12:00 BP 103/62 07/25/18 12:00 Pulse Ox 97 07/25/18 12:00 Intake & Output 07/24/18 07/25/18 07/25/18 18:59 06:59 18:59 Intake Total 600 Balance 600 Weight 100.1 kg 101 kg Intake: Intake, IV Titration 600 Amount Sodium Chloride 0.9% 1, 600 000 ml @ 100 mls/hr IV . Q10H [facility] Rx#:[id number] Other: Voiding Method Toilet # Voids 2 2 1 - Constitutional General appearance: Present: cooperative, no acute distress, obese - EENT Eyes: Present: anicteric sclerae, EOMI ENT: Present: normal oropharynx - Respiratory Respiratory: bilateral: CTA - Cardiovascular Heart sounds: normal: S1, S2 - Peripheral edema leg Peripheral Edema: bilateral: Trace - Gastrointestinal General gastrointestinal: Present: normal bowel sounds, soft - Integumentary Integumentary: Present: normal - Neurologic Neurologic: Present: CNII-XII intact - Musculoskeletal Musculoskeletal: Present: strength equal bilaterally - Psychiatric Psychiatric: Present: A&O x's 3, appropriate affect, intact judgment & insight - Labs CBC & Chem 7: 07/25/18 12:07 07/24/18 07:34 Labs: Abnormal Lab Results - Last 24 Hours (Table) 07/24/18 07/24/18 07/25/18 Range/Units 16:00 20:22 05:39 RBC (3.80-5.40) m/uL Hgb (11.4-16.0) gm/dL Hct (34.0-46.0) % RDW (11.5-15.5) % Plt Count (150-450) k/uL Lymphocytes # (1.0-4.8) k/uL POC Glucose (mg/dL) 112 H 121 H 179 H (75-99) mg/dL 07/25/18 07/25/18 Range/Units 11:43 12:07 RBC 3.23 L (3.80-5.40) m/uL Hgb 9.1 L (11.4-16.0) gm/dL Hct 28.8 L (34.0-46.0) % RDW 19.6 H (11.5-15.5) % Plt Count 147 L D (150-450) k/uL Lymphocytes # 0.6 L (1.0-4.8) k/uL POC Glucose (mg/dL) 119 H (75-99) mg/dL Microbiology - Last 24 Hours (Table) 07/22/18 13:52 Blood Culture - Preliminary Blood No Growth after 48 hours Assessment and Plan (1) Liposarcoma Narrative/Plan: Pt is s/p 2 treatments, days 1 & 8. She is due to start cycle 3 today. Her treatment schedule will be pushed out until she completes abx treatment for UTI. Pt will be contacted for adjustments in her appts dates/times Status: Acute Priority: High Code(s): C49.9 - MALIGNANT NEOPLASM OF CONNECTIVE AND SOFT TISSUE, UNSP SNOMED Code(s): 470574338 (2) Urinary tract infection Narrative/Plan: Cont abx as prescribed Status: Acute Priority: High Code(s): N39.0 - URINARY TRACT INFECTION, SITE NOT SPECIFIED SNOMED Code(s): 55657664
== END 2018-07-25 16:00 | disposition home or self-care (01) | DRG 872 ==
LOC: EC 12:55 → 3SCARD 15:43
PROVIDERS: ADMIT Family Medicine; ATTEND Family Medicine
DX: A41.9 Sepsis, unspecified organism (principal); N39.0 Urinary tract infection, site not specified; C49.8 Malignant neoplasm of overlapping sites of connective and soft tissue; J98.11 Atelectasis; D69.59 Other secondary thrombocytopenia; E11.40 Type 2 diabetes mellitus with diabetic neuropathy, unspecified; D64.81 Anemia due to antineoplastic chemotherapy; T45.1X5A Adverse effect of antineoplastic and immunosuppressive drugs, initial encounter; K12.31 Oral mucositis (ulcerative) due to antineoplastic therapy; I10 Essential (primary) hypertension; E78.5 Hyperlipidemia, unspecified; F41.9 Anxiety disorder, unspecified; K21.9 Gastro-esophageal reflux disease without esophagitis; M79.7 Fibromyalgia; J45.909 Unspecified asthma, uncomplicated; M17.0 Bilateral primary osteoarthritis of knee; M19.012 Primary osteoarthritis, left shoulder; M19.011 Primary osteoarthritis, right shoulder; M19.022 Primary osteoarthritis, left elbow; M50.30 Other cervical disc degeneration, unspecified cervical region; H93.13 Tinnitus, bilateral; E66.9 Obesity, unspecified; Z68.33 Body mass index [BMI] 33.0-33.9, adult; Z71.3 Dietary counseling and surveillance; Z93.3 Colostomy status; Z79.4 Long term (current) use of insulin; Z79.82 Long term (current) use of aspirin; Z79.899 Other long term (current) drug therapy; Z92.3 Personal history of irradiation; Z92.21 Personal history of antineoplastic chemotherapy; Z87.442 Personal history of urinary calculi; Z90.49 Acquired absence of other specified parts of digestive tract; Z98.891 History of uterine scar from previous surgery; Z90.710 Acquired absence of both cervix and uterus; Z90.79 Acquired absence of other genital organ(s); Z90.721 Acquired absence of ovaries, unilateral; Z87.81 Personal history of (healed) traumatic fracture; Z86.718 Personal history of other venous thrombosis and embolism; Z88.0 Allergy status to penicillin; Z88.2 Allergy status to sulfonamides; Z88.1 Allergy status to other antibiotic agents; Z91.02 Food additives allergy status; Z80.8 Family history of malignant neoplasm of other organs or systems; Z82.49 Family history of ischemic heart disease and other diseases of the circulatory system; Z82.0 Family history of epilepsy and other diseases of the nervous system
CPT/HCPCS: 36415; 71046; 74018; 80048; 80053; 80202; 81001; 82150; 83036; 83605; 83690; 85025; 85610; 85730; 87040; 87086; 87502; 96365; 96366; 96368; 96375; 96376; 99285

== ENCOUNTER → 2018-09-13 | Outpatient (CLI) | payer MEDICAID ==
[2018-09-13 13:11] LABS: Blood Urea Nitrogen 15 mg/dL (7-17)
--- NOTE | 2018-09-13 15:12 | CT ---
EXAMINATION TYPE: CT ChestAbdPelvis w con DATE OF EXAM: 09/13/2018 COMPARISON: 07/18/2018 and 06/18/2018 HISTORY: Liposarcoma. CT DLP: 2266 mGycm. Automated Exposure Control for Dose Reduction was Utilized. CONTRAST: CT scan of the thorax, abdomen and pelvis is performed with IV Contrast, patient injected with 100ml mL of Isovue 300. FINDINGS: LUNGS: There is redemonstration of an unchanged 5 mm solid pulmonary nodule in the right upper lobe on serie s 4 image 18. Additionally within the right upper lobe there are again two approximately 2 mm pulmonary nodules adj acent to one another on image 27. The previously seen punctate right lower lobe 1 mm pulmonary nodule is not visualized on today's exam. 5 mm solid pulmonary nodule within the right middle on series 4 image 32 is retrospectively unchanged from the prior. There is either a new solid pulmonary nodule or more likely atelectasis as this does elongate within the right middle lobe along the interlobar fissure on series 4 image 32 and 33. Similar bibasilar opa cities are seen medially along the bilateral lung bases. These are most pronounced on series 4 image 32. These are new from the prior. There is a stable 5 mm right lower lobe pulmonary nodule on image 33. There are stable solid 4 mm pulmonary nodules on series 4 image 30 and 31 within the left lower lobe. 4 mm pulmonary nodule in the left upper lobe on image 20 is stable from the prior. The previously seen 2 mm left apical pulmonary nodules not apparent on today's exam. MEDIASTINUM: There are no greater than 1 cm hilar or mediastinal lymph nodes. No pericardial effusi on is seen. LIVER/GB: Hepatic parenchyma is diffusely hypoattenuated in comparison to that of the spleen, most co mmonly seen in hepatic steatosis. This finding limits evaluation for hepatic masses. No gross evidenc e of hepatic mass is seen. No intrahepatic biliary ductal dilatation. No cholelithiasis PANCREAS: No significant abnormality is seen. SPLEEN: No significant abnormality is seen. ADRENALS: No significant abnormality is seen. KIDNEYS: There remains asymmetric size of the kidneys without abnormal enhancement other than a right renal cyst measuring 9 mm. No hydronephrosis. Surgical clip is seen adjacent to the left proximal ur eter. BOWEL: Left lower quadrant diverting ostomy is seen. Moderate amount retained colonic stool is noted. No dilated large or small bowel. LYMPH NODES: No greater than 1cm abdominal or pelvic lymph nodes are appreciated. Nonenlarged periaor tic lymph nodes such as on series 3 image 81 are slightly smaller than on the prior. OSSEOUS STRUCTURES: No significant abnormality is seen. Mild degenerative changes of the spine. OTHER: The heterogenous pelvic mass is decrease in size in comparison the prior of 07/18/2018 where t his measured 6.0 x 5.2 x 3.7 cm (6.8 x 6.0 cm on the exam of 06/18/2018) and currently measures only 4.6 x 2.9 x 3.8 cm. This is closely associated with the urinary bladder wall. Presacral soft tissue d ensity has slightly increased currently measuring 3.3 cm and previously measuring 2.9 cm. 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 IMPRESSION: 1. 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 2. 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 3. Stability of multiple subcentimeter bilateral pulmonary nodules again compatible with metastasis.
== END | disposition home or self-care (01) ==
LOC: RADCTMAIN 12:32
PROVIDERS: ATTEND Internal Medicine Hematology & Oncology
DX: R91.8 Other nonspecific abnormal finding of lung field (principal); M79.89 Other specified soft tissue disorders; C49.9 Malignant neoplasm of connective and soft tissue, unspecified; Z88.0 Allergy status to penicillin; Z88.2 Allergy status to sulfonamides; Z88.8 Allergy status to other drugs, medicaments and biological substances
CPT/HCPCS: 82565; 84520; 71260; 74177; 36415; Q9967

== ENCOUNTER 2018-10-12 16:46 | Inpatient (IN) | payer MEDICAID ==
[2018-10-12 17:21] LABS: Glucose,Whole Blood >600 mg/dL (75-99)
[2018-10-12] MEDS ORDERED: SODIUM CHLORIDE 0.9% 1,000 ML IV ONE (17:48)
--- NOTE | 2018-10-12 18:19 | ED ---
General Adult HPI - General Chief complaint: Recheck/Abnormal Lab/Rx Stated complaint: High blood sugar Source: patient, family, RN notes reviewed, old records reviewed Mode of arrival: wheelchair Limitations: no limitations - History of Present Illness Initial comments: Chief complaint and history of present illness this is a 58-year-old female who had chemotherapy today. She also had steroid shot while there. The patient is being treated for liposarcoma. The patient is a diabetic and takes multiple medications to control the sugar level. She checked her sugar after having had steroids and chemo today and it was greater than 600. She gave herself 6 units of NovoLog at 4:45 PM. Patient also drank 2 glasses of water. Patient will have IV started glucose determined as well as acetone. Patient states her numbers are often in the 400 range but should do a sliding scale to control her. - Related Data Home Medications Medication Instructions Recorded Confirmed ALPRAZolam [Xanax] 0.25 mg PO Q6H PRN 12/31/16 10/12/18 Albuterol Sulfate [Proair Hfa] 2 puff INHALATION RT-Q6H PRN 12/31/16 10/12/18 Atorvastatin [Lipitor] 20 mg PO HS 12/31/16 10/12/18 Famotidine [Pepcid] 20 mg PO DAILY 12/31/16 10/12/18 Fenofibrate [Lofibra] 160 mg PO DAILY 12/31/16 10/12/18 Loratadine [Claritin] 10 mg PO QAM 12/31/16 10/12/18 Montelukast [Singulair] 10 mg PO DAILY 12/31/16 10/12/18 metFORMIN HCL ER [Glucophage Xr] 500 mg PO BID 12/31/16 10/12/18 Insulin Glargine,Hum.rec.anlog 100 unit SQ HS 12/18/17 10/12/18 [Toujeo Solostar] Polyethylene Glycol 3350 [Miralax] 17 gm PO DAILY PRN 12/18/17 10/12/18 HYDROcodone/APAP 7.5-325MG [[place] 1 tab PO Q4HR PRN 01/11/18 10/12/18 7.5-325] Aspirin [Adult Low Dose Aspirin EC] 81 mg PO DAILY 01/24/18 10/12/18 Enalapril [Vasotec] 2.5 mg PO DAILY 01/24/18 10/12/18 Metoprolol Succinate (ER) [Toprol 25 mg PO BID 07/10/18 10/12/18 Xl] INSULIN ASPART (NovoLOG) [NovoLOG 45 unit SQ AC-TID 07/22/18 10/12/18 (formulary)] INSULIN ASPART (NovoLOG) [NovoLOG See Protocol SQ HS 07/22/18 10/12/18 (formulary)] Ibuprofen [Motrin] 800 mg PO TID PRN 07/22/18 10/12/18 Gabapentin 600 mg PO TID 10/12/18 10/12/18 Allergies Allergy/AdvReac Type Severity Reaction Status Date / Time Penicillins Allergy Intermediate Dyspnea/Rolando Verified 10/12/18 17:50 h Sulfa (Sulfonamide Allergy Intermediate Rash/Hives Verified 10/12/18 17:50 Antibiotics) cefepime Allergy Mild Unknown Verified 10/12/18 17:50 artificial sweetner Allergy Severe Rash/Hives Uncoded 10/12/18 16:51 Review of Systems ROS Statement: Those systems with pertinent positive or pertinent negative responses have been documented in the HPI. Review of systems. Mild blurred vision, no chest pain or shortness of breath. Nausea no vomiting. The patient's past medical problems significant for asthma, liposarcoma with metastasis and recurrence. Insulin-dependent diabetes mellitus, however myalgia, GERD, hyperlipidemia, hypertension, osteoarthritis, chronic renal disease,. The patient's surgeries include tonsils, adenoids, appendectomy, bowel resection, see section, hysterectomy, orthopedic procedures, exploratory lap with pelvic mass removal and a IV port area patient has ALLERGIES to penicillin and sulfa and cefepime and artificial sweeteners. Nonsmoker nondrinker. Family history noncontributory. ROS Other: All systems not noted in ROS Statement are negative. 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 3/18 second mass removed in pelvic area. History of Any Multi-Drug Resistant Organisms: None Reported Past Surgical History: Adenoidectomy, Appendectomy, Bowel Resection, Section, Hysterectomy, Orthopedic Surgery, Tonsillectomy Additional Past Surgical History / Comment(s): Exploratory lap with pelvic mass removal, port placement, kidney stent/removed, D&C, right lateral salpingo-oopho rectomy, colonoscopy, umbilical hernia repair, L knee arthroscopy, L elbow implant then bone removal, third molar removal Past Anesthesia/Blood Transfusion Reactions: Postoperative Nausea & Vomiting (PONV) Past Psychological History: Anxiety Smoking Status: Never smoker Past Alcohol Use History: None Reported Past Drug Use History: None Reported - Past Family History Mother Family Medical History: Cancer Additional Family Medical History / Comment(s): eye cancer, heart disease Father Additional Family Medical History / Comment(s): ALS, . Sister(s) Additional Family Medical History / Comment(s): ALS - General Exam - General Exam Comments Initial Comments: General: The patient is awake and alert, presents emergency room today because of e levated blood sugar in excess of 600 after having received chemotherapy and IV steroids. Vital signs show temperature 98.0 pulse 86 respiratory rate 18 pulse ox 90% room air blood pressure 134/77 ,in no distress, and does not appear acutely ill. Eye: Pupils are equal, round and reactive to light, extra-ocular movements are intact; there is normal conjunctiva bilaterally. No signs of icterus. Ears, nose, mouth and throat: There are moist mucous membranes and no oral lesions. Neck: The neck is supple, there is no tenderness Cardiovascular: There is a regular rate and rhythm. No murmur, rub or gallop is appreciated. Respiratory: Lungs are clear to auscultation, respirations are non-labored, breath sounds are equal. No wheezes, stridor, rales, or rhonchi. Gastrointestinal: Patient has a functioning colostomy. She also reports surgeries include taking the ureter from left kidney to go toward the right side. Patient states she has recurrence of the liposarcoma within the abdomen. Back: There is no tenderness to palpation in the midline. There is no obvious deformity. No rashes noted. Musculoskeletal: Normal ROM, no tenderness, There is no pedal edema. Neurological: CN II-XII intact, There are no obvious motor or sensory deficits. Coordination appears grossly intact. Speech is normal. No neuro deficit Skin: Skin is warm and dry and no rashes or lesions are noted. Psychiatric: Cooperative, Limitations: no limitations Course Vital Signs 10/12/18 10/12/18 16:48 19:15 Temperature 98.0 F Pulse Rate 84 Respiratory 18 19 Rate Blood Pressure 134/77 O2 Sat by Pulse 98 Oximetry Medical Decision Making - Medical Decision Making Vital decision making; this is a 58-year-old female here with family. The patient is undergoing chemotherapy. Today she had chemotherapy and IV steroids. The patient's blood sugar at home was over 600. Measured here at 607. The patient gave herself 45 units of NovoLog prior to coming emergency room. Patient getting rehydrated this time. Labs show white count of 11.9 hemoglobin 12 hematocrit 40 with a potassium 5.5. BUN 22 creatinine 0.85 GFR 72. Glucose measured by laboratory at 607. Acetone negative. AST ALT mildly elevated alk phos 125. The patient will receive 8 units of regular insulin IV push and be placed on an insulin drip per protocol with frequent repeat Accu-Cheks. Case discussed with Dr. Goode on-call oncologist, and he wants the patient admitted to the patient's family doctor. I spoke to Dr. Mckeon, he accepts patient for his service. - Lab Data Result diagrams: 10/12/18 18:06 10/12/18 18:06 Lab Results 10/12/18 10/12/18 10/12/18 Range/Units 17:11 18:06 18:06 WBC 11.9 H (3.8-10.6) k/uL RBC 4.14 (3.80-5.40) m/uL Hgb 12.1 (11.4-16.0) gm/dL Hct 40.6 (34.0-46.0) % MCV 98.1 D (80.0-100.0) fL MCH 29.3 (25.0-35.0) pg MCHC 29.9 L (31.0-37.0) g/dL RDW 18.2 H (11.5-15.5) % Plt Count 154 (150-450) k/uL Neutrophils % 96 % Lymphocytes % 2 % Monocytes % 2 % Eosinophils % 0 % Basophils % 0 % Neutrophils # 11.5 H (1.3-7.7) k/uL Lymphocytes # 0.2 L (1.0-4.8) k/uL Monocytes # 0.2 (0-1.0) k/uL Eosinophils # 0.0 (0-0.7) k/uL Basophils # 0.0 (0-0.2) k/uL Hypochromasia Moderate Anisocytosis Slight Macrocytosis Slight Sodium 132 L (137-145) mmol/L Potassium 5.5 H (3.5-5.1) mmol/L Chloride 100 (98-107) mmol/L Carbon Dioxide 19 L (22-30) mmol/L Anion Gap 13 mmol/L BUN 22 H (7-17) mg/dL Creatinine 0.85 (0.52-1.04) mg/dL Est GFR (CKD-EPI)AfAm 88 (>60 ml/min/1.73 sqM) Est GFR (CKD-EPI)NonAf 77 (>60 ml/min/1.73 sqM) Glucose 607 H* (74-99) mg/dL POC Glucose (mg/dL) >600 H (75-99) mg/dL POC Glu Automatic Data Processing Planner ID Jeannie Arellano Calcium 9.8 (8.4-10.2) mg/dL Total Bilirubin 1.0 (0.2-1.3) mg/dL AST 47 H (14-36) U/L ALT 57 H (9-52) U/L Alkaline Phosphatase 143 H (38-126) U/L Total Protein 6.3 (6.3-8.2) g/dL Albumin 4.0 (3.5-5.0) g/dL Acetone, Qual Negative (Negative) Disposition Clinical Impression: Hyperglycemia without ketosis, History of chemotherapy Disposition: ADMITTED IP TO THIS HOSP Condition: Fair Is patient prescribed a controlled substance at d/c from ED?: No Referrals: Carlos Ling MD [Primary Care Provider] - 1-2 days
[2018-10-12 18:30] LABS: ALT 57 U/L (9-52); AST 47 U/L (14-36); Alkaline Phosphatase 143 U/L (38-126); Anion Gap 13 mmol/L; Blood Urea Nitrogen 22 mg/dL (7-17); Calcium 9.8 mg/dL (8.4-10.2); Carbon Dioxide 19 mmol/L (22-30); Chloride 100 mmol/L (98-107); Potassium 5.5 mmol/L (3.5-5.1); Sodium 132 mmol/L (137-145); Total Protein 6.3 g/dL (6.3-8.2)
[2018-10-12 18:37] LABS: Glucose 607 mg/dL (74-99)
[2018-10-12 18:39] LABS: Anisocytosis Slight; Basophils % (A) 0 %; Eosinophils % (A) 0 %; HCT 40.6 % (34.0-46.0); HGB 12.1 gm/dL (11.4-16.0); Hypochromasia Moderate; Lymphocytes # (A) 0.2 k/uL (1.0-4.8); Lymphocytes % (A) 2 %; MCH 29.3 pg (25.0-35.0); MCHC 29.9 g/dL (31.0-37.0); Macrocytosis Slight; Mean Platelet Volume 8.1; Monocytes # (A) 0.2 k/uL (0-1.0); Monocytes % (A) 2 %; Neutrophils # (A) 11.5 k/uL (1.3-7.7); Neutrophils % (A) 96 %; Platelet Count 154 k/uL (150-450); RBC 4.14 m/uL (3.80-5.40); RDW 18.2 % (11.5-15.5); WBC 11.9 k/uL (3.8-10.6)
[2018-10-12 18:43] LABS: MCV 98.1 fL (80.0-100.0)
[2018-10-12] MEDS ORDERED: INSULIN REGULAR BOLUS (FROM DRIP BAG) IV ONE (19:48)
[2018-10-12 19:50] LABS: Glucose,Whole Blood 440 mg/dL (75-99)
[2018-10-12] MEDS ORDERED: NALOXONE 0.4 MG/ML 1 ML VIAL IV PRN (19:57)
[2018-10-12] MEDS ORDERED: ACETAMINOPHEN TAB 325 MG TAB PO PRN (19:57)
[2018-10-12] MEDS ORDERED: INSULIN REGULAR 100 UNIT in SODIUM CHLORIDE 0.9% 100 ML IV SCH (20:00)
[2018-10-12] MEDS ORDERED: ALBUTEROL NEBULIZED 2.5 MG/3 ML INHALATION PRN (20:00)
[2018-10-12] MEDS ORDERED: POLYETHYLENE GLYCOL 3350 17 GM POWD.PACK PO PRN (20:00)
[2018-10-12] MEDS ORDERED: IBUPROFEN 400 MG TAB PO PRN (20:00)
[2018-10-12 21:04] LABS: Glucose,Whole Blood 368 mg/dL (75-99)
[2018-10-12 21:57] LABS: Glucose,Whole Blood 365 mg/dL (75-99)
[2018-10-12 22:35] LABS: Glucose,Whole Blood 306 mg/dL (75-99)
[2018-10-12 23:08] LABS: Glucose,Whole Blood 305 mg/dL (75-99)
[2018-10-12 23:33] LABS: Glucose,Whole Blood 306 mg/dL (75-99)
[2018-10-12] MEDS: GABAPENTIN 300 MG CAP PO SCH (23:36)
[2018-10-12] MEDS: ATORVASTATIN 20 MG TAB PO SCH (23:36)
[2018-10-12] MEDS: METOPROLOL SUCCINATE (ER) 25 MG TAB.ER.24H PO SCH (23:36)
[2018-10-12] MEDS: HYDROcodone/APAP 7.5-325MG 1 EACH TAB PO PRN (23:37)
[2018-10-12] MEDS: ALPRAZolam 0.25 MG TAB PO PRN (23:38)
[2018-10-13 00:11] LABS: Glucose,Whole Blood 271 mg/dL (75-99)
[2018-10-13 00:34] LABS: Glucose,Whole Blood 282 mg/dL (75-99)
[2018-10-13 02:06] LABS: Glucose,Whole Blood 260 mg/dL (75-99)
[2018-10-13 03:36] LABS: Glucose,Whole Blood 256 mg/dL (75-99)
[2018-10-13 05:25] LABS: Glucose,Whole Blood 240 mg/dL (75-99)
[2018-10-13 07:17] LABS: Glucose,Whole Blood 237 mg/dL (75-99)
[2018-10-13] MEDS ORDERED: INSULIN ASPART (NovoLOG) 100 UNIT/ML VIAL SQ SCH (07:30)
[2018-10-13 08:14] LABS: Glucose,Whole Blood 242 mg/dL (75-99)
[2018-10-13] MEDS ORDERED: ONDANSETRON 4 MG/2 ML VIAL IVP PRN (08:36)
[2018-10-13 09:00] LABS: Glucose,Whole Blood 293 mg/dL (75-99)
[2018-10-13] MEDS: ONDANSETRON 8 MG in SODIUM CHLORIDE 0.9% 50 ML IVPB PRN (09:11)
[2018-10-13] MEDS: ALPRAZolam 0.25 MG TAB PO PRN ×3 (09:12→21:58)
[2018-10-13] MEDS: HYDROcodone/APAP 7.5-325MG 1 EACH TAB PO PRN ×3 (09:13→21:58)
[2018-10-13] MEDS: LISINOPRIL 5 MG TAB PO SCH (09:15)
[2018-10-13] MEDS: LORATADINE 10 MG TAB PO SCH (09:15)
[2018-10-13] MEDS: GABAPENTIN 300 MG CAP PO SCH ×3 (09:15→21:58)
[2018-10-13] MEDS: METOPROLOL SUCCINATE (ER) 25 MG TAB.ER.24H PO SCH ×2 (09:15→23:04)
[2018-10-13] MEDS: ASPIRIN 81 MG PO SCH (09:15)
[2018-10-13] MEDS: MONTELUKAST 10 MG TAB PO SCH (09:15)
[2018-10-13] MEDS: FAMOTIDINE 20 MG TAB PO SCH (09:15)
[2018-10-13] MEDS: FENOFIBRATE 160 MG TAB PO SCH (09:16)
[2018-10-13 10:06] LABS: Glucose,Whole Blood 297 mg/dL (75-99)
[2018-10-13 11:06] LABS: Glucose,Whole Blood 232 mg/dL (75-99)
[2018-10-13 12:10] LABS: Glucose,Whole Blood 204 mg/dL (75-99)
--- NOTE | 2018-10-13 12:11 | P.HPIM ---
History of Present Illness H&P Date: 10/13/18 Chief Complaint: Hyperglycemia/rescue chemotherapy This is a 58-year-old female patient well known to the practice to both Dr. Ling and myself patient his undergoing rescue chemotherapy for a liposarcoma she is also a diabetic and the steroids and chemo that she underwent yesterday her sugars landed numbers higher than 600. She gave herself 6 units of NovoLog at 445 yesterday evening also drank 2 glasses of water was started on an insulin drip yesterday in the emergency room and admitted today sugars are running regularly in the mid 200s will switch to D10 and started diet according to protocol and continue to follow the patient Review of Systems Constitutional: Reports as per HPI Ears, nose, mouth and throat: Reports as per HPI Cardiovascular: Reports as per HPI Respiratory: Reports as per HPI Gastrointestinal: Reports as per HPI Genitourinary: Reports as per HPI Menstruation: Reports as per HPI Musculoskeletal: Reports as per HPI Integumentary: Reports as per HPI Neurological: Reports as per HPI Psychiatric: Reports as per HPI Endocrine: Reports fatigue, Reports high blood sugars Past Medical History Past Medical History: Asthma, Cancer, Diabetes Mellitus, Fibromyalgia, GERD/Reflux, Hyperlipidemia, Hypertension, Osteoarthritis (OA), Renal Disease Additional Past Medical History / Comment(s): Liposarcoma 12/31/16 with pelvic mass removal, IDDM type II, L elbow fracture-surgery/bone removal, arthritis bilateral knees/shoulders/L elbow, DDD- cervical spine and upper back, lower spinal stenosis, bilateral tinnitis, neuropathy chin and arms at times. 10/15 second mass removed in pelvic area. last chemo 10/12/2018 History of Any Multi-Drug Resistant Organisms: None Reported Past Surgical History: Adenoidectomy, Appendectomy, Bowel Resection, Section, Hysterectomy, Orthopedic Surgery, Tonsillectomy Additional Past Surgical History / Comment(s): Exploratory lap with pelvic mass removal, port placement, kidney stent/removed, D&C, right lateral salpingo- oophorectomy, colonoscopy, umbilical hernia repair, L knee arthroscopy, L elbow implant then bone removal, third molar removal Past Anesthesia/Blood Transfusion Reactions: Postoperative Nausea & Vomiting (PONV) Past Psychological History: Anxiety Additional Psychological History / Comment(s): Pt resides with her spouse and currently 2 children at home and another child at college. She is independent. She states she has some issues with anxiety, especially at night time. She uses xanax which helps. Smoking Status: Never smoker Past Alcohol Use History: None Reported Past Drug Use History: None Reported - Past Family History Mother Family Medical History: Cancer Additional Family Medical History / Comment(s): eye cancer, heart disease Father Additional Family Medical History / Comment(s): ALS, . Sister(s) Additional Family Medical History / Comment(s): ALS - Medications and Allergies Home Medications Medication Instructions Recorded Confirmed Type ALPRAZolam [Xanax] 0.25 mg PO Q6H PRN 12/31/16 10/12/18 History Albuterol Sulfate [Proair Hfa] 2 puff INHALATION RT-Q6H PRN 12/31/16 10/12/18 History Atorvastatin [Lipitor] 20 mg PO HS 12/31/16 10/12/18 History Famotidine [Pepcid] 20 mg PO DAILY 12/31/16 10/12/18 History Fenofibrate [Lofibra] 160 mg PO DAILY 12/31/16 10/12/18 History Loratadine [Claritin] 10 mg PO QAM 12/31/16 10/12/18 History Montelukast [Singulair] 10 mg PO DAILY 12/31/16 10/12/18 History metFORMIN HCL ER [Glucophage Xr] 500 mg PO BID 12/31/16 10/12/18 History Insulin Glargine,Hum.rec.anlog 100 unit SQ HS 12/18/17 10/12/18 History [Toujeo Solostar] Polyethylene Glycol 3350 [Miralax] 17 gm PO DAILY PRN 12/18/17 10/12/18 History HYDROcodone/APAP 7.5-325MG [[place] 1 tab PO Q4HR PRN 01/11/18 10/12/18 History 7.5-325] Aspirin [Adult Low Dose Aspirin EC] 81 mg PO DAILY 01/24/18 10/12/18 History Enalapril [Vasotec] 2.5 mg PO DAILY 01/24/18 10/12/18 History Metoprolol Succinate (ER) [Toprol 25 mg PO BID 07/10/18 10/12/18 History Xl] INSULIN ASPART (NovoLOG) [NovoLOG 45 unit SQ AC-TID 07/22/18 10/12/18 History (formulary)] INSULIN ASPART (NovoLOG) [NovoLOG See Protocol SQ HS 07/22/18 10/12/18 History (formulary)] Ibuprofen [Motrin] 800 mg PO TID PRN 07/22/18 10/12/18 History Gabapentin 600 mg PO TID 10/12/18 10/12/18 History Allergies Allergy/AdvReac Type Severity Reaction Status Date / Time Penicillins Allergy Intermediate Dyspnea/Rolando Verified 10/12/18 17:50 h Sulfa (Sulfonamide Allergy Intermediate Rash/Hives Verified 10/12/18 17:50 Antibiotics) cefepime Allergy Mild Unknown Verified 10/12/18 17:50 artificial sweetner Allergy Severe Rash/Hives Uncoded 10/12/18 16:51 Physical Exam Osteopathic Statement: *. No significant issues noted on an osteopathic structural exam other than those noted in the History and Physical/Consult. Vitals: Vital Signs Temp Pulse Pulse Resp BP BP Pulse Ox 10/13/18 11:52 98.2 F 75 18 97/56 96 10/13/18 08:00 80 16 10/13/18 05:58 97.8 F 80 16 116/63 93 L 10/12/18 23:00 98.3 F 98 16 136/65 93 L 10/12/18 19:42 98.6 F 95 19 129/72 97 10/12/18 19:15 19 10/12/18 16:48 98.0 F 84 18 134/77 98 Intake and Output 10/12/18 10/13/18 10/13/18 22:59 06:59 14:59 Intake Total 6 610.333 31.016 Balance 6 610.333 31.016 Intake: Intake, IV Titration 6 20.333 31.016 Amount Insulin Regular 100 unit 6 20.333 31.016 In Sodium Chloride 0.9% 100 ml @ Titrate IV .Q0M [facility] Rx#:[id number] Oral 590 Other: Voiding Method Toilet Toilet Weight 97.522 kg General: [Patient awake, alert and oriented times 3. Patient in no acute distress.] HEENT: [PERRL. EOMI. No pharyngeal erythema or exudate.] Neck: [No adenopathy.] Cardiac: [Heart regular in rate and rhythm. No S3. No S4. No clicks, rubs. No murmur.] Lungs: [Clear to auscultation bilaterally.] Abdomen: [No mass. No organomegaly. Bowel sounds presnt and normoactive in all 4 quadrants.] Extremes: [No edema no cyanosis no claudication normal pulses] : Normal female genitalia Musculoskeletal: [No joint erythema, edema or tenderness.] Skin: [No rash.] Neurologic: [No lateralizing deficits. CN II - XII grossly intact.] Lymphatic: [No adenopathy.] Results CBC & Chem 7: 10/12/18 18:06 10/12/18 18:06 Labs: Abnormal Lab Results - Last 24 Hours (Table) 10/12/18 10/12/18 10/12/18 Range/Units 17:11 18:06 18:06 WBC 11.9 H (3.8-10.6) k/uL MCHC 29.9 L (31.0-37.0) g/dL RDW 18.2 H (11.5-15.5) % Neutrophils # 11.5 H (1.3-7.7) k/uL Lymphocytes # 0.2 L (1.0-4.8) k/uL Sodium 132 L (137-145) mmol/L Potassium 5.5 H (3.5-5.1) mmol/L Carbon Dioxide 19 L (22-30) mmol/L BUN 22 H (7-17) mg/dL Glucose 607 H* (74-99) mg/dL POC Glucose (mg/dL) >600 H (75-99) mg/dL AST 47 H (14-36) U/L ALT 57 H (9-52) U/L Alkaline Phosphatase 143 H (38-126) U/L 10/12/18 10/12/18 10/12/18 Range/Units 19:49 21:03 21:56 WBC (3.8-10.6) k/uL MCHC (31.0-37.0) g/dL RDW (11.5-15.5) % Neutrophils # (1.3-7.7) k/uL Lymphocytes # (1.0-4.8) k/uL Sodium (137-145) mmol/L Potassium (3.5-5.1) mmol/L Carbon Dioxide (22-30) mmol/L BUN (7-17) mg/dL Glucose (74-99) mg/dL POC Glucose (mg/dL) 440 H 368 H 365 H (75-99) mg/dL AST (14-36) U/L ALT (9-52) U/L Alkaline Phosphatase (38-126) U/L 10/12/18 10/12/18 10/12/18 Range/Units 22:33 23:06 23:31 WBC (3.8-10.6) k/uL MCHC (31.0-37.0) g/dL RDW (11.5-15.5) % Neutrophils # (1.3-7.7) k/uL Lymphocytes # (1.0-4.8) k/uL Sodium (137-145) mmol/L Potassium (3.5-5.1) mmol/L Carbon Dioxide (22-30) mmol/L BUN (7-17) mg/dL Glucose (74-99) mg/dL POC Glucose (mg/dL) 306 H 305 H 306 H (75-99) mg/dL AST (14-36) U/L ALT (9-52) U/L Alkaline Phosphatase (38-126) U/L 10/13/18 10/13/18 10/13/18 Range/Units 00:10 00:33 02:04 WBC (3.8-10.6) k/uL MCHC (31.0-37.0) g/dL RDW (11.5-15.5) % Neutrophils # (1.3-7.7) k/uL Lymphocytes # (1.0-4.8) k/uL Sodium (137-145) mmol/L Potassium (3.5-5.1) mmol/L Carbon Dioxide (22-30) mmol/L BUN (7-17) mg/dL Glucose (74-99) mg/dL POC Glucose (mg/dL) 271 H 282 H 260 H (75-99) mg/dL AST (14-36) U/L ALT (9-52) U/L Alkaline Phosphatase (38-126) U/L 10/13/18 10/13/18 10/13/18 Range/Units 03:33 05:23 07:14 WBC (3.8-10.6) k/uL MCHC (31.0-37.0) g/dL RDW (11.5-15.5) % Neutrophils # (1.3-7.7) k/uL Lymphocytes # (1.0-4.8) k/uL Sodium (137-145) mmol/L Potassium (3.5-5.1) mmol/L Carbon Dioxide (22-30) mmol/L BUN (7-17) mg/dL Glucose (74-99) mg/dL POC Glucose (mg/dL) 256 H 240 H 237 H (75-99) mg/dL AST (14-36) U/L ALT (9-52) U/L Alkaline Phosphatase (38-126) U/L 10/13/18 10/13/18 10/13/18 Range/Units 08:06 08:58 09:58 WBC (3.8-10.6) k/uL MCHC (31.0-37.0) g/dL RDW (11.5-15.5) % Neutrophils # (1.3-7.7) k/uL Lymphocytes # (1.0-4.8) k/uL Sodium (137-145) mmol/L Potassium (3.5-5.1) mmol/L Carbon Dioxide (22-30) mmol/L BUN (7-17) mg/dL Glucose (74-99) mg/dL POC Glucose (mg/dL) 242 H 293 H 297 H (75-99) mg/dL AST (14-36) U/L ALT (9-52) U/L Alkaline Phosphatase (38-126) U/L 10/13/18 Range/Units 11:00 WBC (3.8-10.6) k/uL MCHC (31.0-37.0) g/dL RDW (11.5-15.5) % Neutrophils # (1.3-7.7) k/uL Lymphocytes # (1.0-4.8) k/uL Sodium (137-145) mmol/L Potassium (3.5-5.1) mmol/L Carbon Dioxide (22-30) mmol/L BUN (7-17) mg/dL Glucose (74-99) mg/dL POC Glucose (mg/dL) 232 H (75-99) mg/dL AST (14-36) U/L ALT (9-52) U/L Alkaline Phosphatase (38-126) U/L Thrombosis Risk Factor Assmnt - Choose All That Apply Any of the Below Risk Factors Present?: Yes Each Factor Represents 1 point: Age 41-60 years, Obesity (BMI >25) Other Risk Factors: Yes Each Risk Factor Represents 2 Points: Malignancy Thrombosis Risk Factor Assessment Total Risk Factor Score: 4 Thrombosis Risk Factor Assessment Level: Moderate Risk Assessment and Plan (1) History of chemotherapy Current Visit: Yes Status: Acute Code(s): Z92.21 - PERSONAL HISTORY OF ANTINEOPLASTIC CHEMOTHERAPY SNOMED Code(s): 718601770211845 (2) Hyperglycemia without ketosis Current Visit: Yes Status: Acute Code(s): R73.9 - HYPERGLYCEMIA, UNSPECIFIED SNOMED Code(s): 80224512 Plan: Patient was recently underwent rescue chemotherapy that included high-dose steroids Blood sugars this sort of as high as 600 Sugars now running in the mid 250s, insulin drip was stopped was placed on protocol Patient was started on diabetic diet will follow closely Time with Patient: Greater than 30
[2018-10-13] MEDS: INSULIN ASPART (NovoLOG) 100 UNIT/ML VIAL SQ SCH ×3 (12:30→21:59)
[2018-10-13 14:06] LABS: Hemoglobin A1C 9.3 % (4.0-6.0)
--- NOTE | 2018-10-13 15:24 | P.PN ---
Progress Note - Text Progress note dictated Impression: 1- Severe Hyperglycemia > Steroids-induced ( Premedication for Chemotherapy) 2- Metastatic Liposarcoma > On Gemzar/Abraxane Chemotherapy Rec: 1- Agree with current management 2- Ok to discharge home 3- Steroids dose reduction during future Chemotherapy Answered all questions/concerns
[2018-10-13 15:32] VITALS: BMI 32.6
[2018-10-13 17:18] LABS: Glucose,Whole Blood 393 mg/dL (75-99)
--- NOTE | 2018-10-13 18:41 | CONS ---
CONSULTATION DATE OF SERVICE: 10/13/2018. ADMITTING PHYSICIAN: Dr. Bay Montero. REASON FOR CONSULTATION: Metastatic sarcoma. HISTORY: Alexandra is a 58-year-old female with known history of metastatic liposarcoma. The patient initially presented with a large pelvic mass. Surgery revealed high-grade liposarcoma. The patient was given adjuvant chemotherapy with a combination of Adriamycin, ifosfamide, and . Unfortunately in 2018, she was found to have progressive disease with recurrent mesenteric disease as well as pulmonary metastases. She has been receiving chemotherapy with a combination of Taxotere and Gemzar with good tolerance and signs of response to therapy. Her last infusion was 10/12/2018, for which she received moderate doses of steroid as premedication. The patient presented to the hospital with severe weakness, dizziness and blurred vision, polyuria and polydipsia. She was found to have a blood sugar of over 600. The patient was hospitalized, started on insulin by continuous infusional drip which was discontinued today. She reported feeling better overnight after hydration and resolution of severe hyperglycemia. When seen today, she reported feeling somewhat tired as is usually the case following chemotherapy. She denies any nausea or vomiting. PAST MEDICAL HISTORY: 1. Metastatic liposarcoma as stated above. 2. Hypertension. 3. Hyperlipidemia. 4. Adult onset insulin-dependent diabetes mellitus. 5. Fibromyalgia. 6. Osteoarthritis. PAST SURGICAL HISTORY: 1. Resection of a large abdominal mass. 2. Hysterectomy. 3. Tonsillectomy. 4. Appendectomy. 5. Adenoidectomy. CURRENT MEDICATIONS: Reviewed with the patient and the family and listed in the electronic medical record. SOCIAL HISTORY: The patient is a lifetime nonsmoker. Denies any excessive use of alcohol. Resides with her family and normally fully independent. EXAMINATION: The patient appeared alert and oriented. Skin is warm and dry. Hair distribution within normal for age and gender. Blood pressure was 97/56, pulse is 69 and regular, respiratory rate was 18, not labored. Temperature was 98.2. There were no pathologic cervical, supraclavicular, infraclavicular or axillary lymphadenopathy. Trachea was in midline. Chest was clear with good air exchange bilaterally. Heart sounds were normal, S1 and S2. There was no S3, rubs, or murmurs auscultated. Abdomen was soft. The liver and spleen were not clinically palpable. No mass, tenderness or inguinal lymphadenopathy. Extremities appears to be unremarkable. Movements within normal. No deformity seen. Neurologic examination showed no focal motor or sensory deficits. Cranial nerves 2-12 unremarkable. IMPRESSION: 1. Severe hyperglycemia, likely steroid induced, steroids were given as part of premedication for chemotherapy. 2. Metastatic liposarcoma on chemotherapy. 3. Hypertension. 4. Hyperlipidemia. 5. Fibromyalgia. RECOMMENDATION: 1. Agree with current management. 2. No therapeutic intervention from oncology standpoint. 3. Antiemetics as needed in the next 24-48 hours. 4. Steroid dose will be adjusted for future chemotherapy infusions. I answered the patient and her family's questions and concerns to her satisfaction. Will follow the patient along with you. MMODL / IJN: [id number] /
[2018-10-13 20:29] LABS: Glucose,Whole Blood 418 mg/dL (75-99)
[2018-10-13] MEDS: ATORVASTATIN 20 MG TAB PO SCH (21:58)
[2018-10-13] MEDS ORDERED: INSULIN DETEMIR (LEVEMIR) 100 UNIT/ML SYR SQ SCH (22:00)
[2018-10-13] MEDS: metFORMIN 500 MG TAB PO SCH (23:03)
[2018-10-14 02:04] LABS: Glucose,Whole Blood 336 mg/dL (75-99)
[2018-10-14] MEDS: INSULIN ASPART (NovoLOG) 100 UNIT/ML VIAL SQ SCH ×3 (03:10→12:37)
[2018-10-14 05:41] VITALS: TEMP 97.7
[2018-10-14 07:16] LABS: Glucose,Whole Blood 192 mg/dL (75-99)
[2018-10-14] MEDS: ONDANSETRON 8 MG in SODIUM CHLORIDE 0.9% 50 ML IVPB PRN (08:54)
[2018-10-14] MEDS: metFORMIN 500 MG TAB PO SCH (09:20)
[2018-10-14] MEDS: METOPROLOL SUCCINATE (ER) 25 MG TAB.ER.24H PO SCH (09:20)
[2018-10-14] MEDS: LISINOPRIL 5 MG TAB PO SCH (09:20)
[2018-10-14] MEDS: MONTELUKAST 10 MG TAB PO SCH (09:20)
[2018-10-14] MEDS: ASPIRIN 81 MG PO SCH (09:21)
[2018-10-14] MEDS: FENOFIBRATE 160 MG TAB PO SCH (09:21)
[2018-10-14] MEDS: LORATADINE 10 MG TAB PO SCH (09:21)
[2018-10-14] MEDS: GABAPENTIN 300 MG CAP PO SCH (09:21)
[2018-10-14] MEDS: HYDROcodone/APAP 7.5-325MG 1 EACH TAB PO PRN (09:21)
[2018-10-14] MEDS: FAMOTIDINE 20 MG TAB PO SCH (09:21)
[2018-10-14] MEDS: ALPRAZolam 0.25 MG TAB PO PRN (09:24)
[2018-10-14 12:35] LABS: Glucose,Whole Blood 197 mg/dL (75-99)
--- NOTE | 2018-10-14 13:22 | P.DS ---
Providers Date of admission: 10/12/18 19:58 Expected date of discharge: 10/14/18 Attending physician: Bay Montero Consults: [facility] Primary care physician: Carlos Ling - Discharge Diagnosis(es) (1) History of chemotherapy General: Alopecia secondary to chemotherapy HEENT: [PERRL. EOMI. No pharyngeal erythema or exudate.] Neck: [No adenopathy.] Cardiac: [Heart regular in rate and rhythm. No S3. No S4. No clicks, rubs. No murmur.] Lungs: [Clear to auscultation bilaterally.] Abdomen: [No mass. No organomegaly. Bowel sounds presnt and normoactive in all 4 quadrants.] Extremes: [No edema no cyanosis no claudication normal pulses] : [] Musculoskeletal: [No joint erythema, edema or tenderness.] Skin: [No rash.] Neurologic: [No lateralizing deficits. CN II - XII grossly intact.] Lymphatic: [No adenopathy.] Current Visit: Yes Status: Acute (2) Hyperglycemia without ketosis Current Visit: Yes Status: Acute Hospital Course: Extreme hyperglycemia without DKA Sugars much better controlled, of course this occurred following rescue chem otherapy with high-dose steroids Patient Condition at Discharge: Fair Plan - Discharge Summary Discharge Rx Participant: Yes New Discharge Prescriptions: No Action metFORMIN HCL ER [Glucophage Xr] 500 mg PO BID ALPRAZolam [Xanax] 0.25 mg PO Q6H PRN PRN Reason: Anxiety/Insomnia Albuterol Sulfate [Proair Hfa] 2 puff INHALATION RT-Q6H PRN PRN Reason: Shortness Of Breath Fenofibrate [Lofibra] 160 mg PO DAILY Montelukast [Singulair] 10 mg PO DAILY Famotidine [Pepcid] 20 mg PO DAILY Atorvastatin [Lipitor] 20 mg PO HS Loratadine [Claritin] 10 mg PO QAM Polyethylene Glycol 3350 [Miralax] 17 gm PO DAILY PRN PRN Reason: Constipation Insulin Glargine,Hum.rec.anlog [Toujeo Solostar] 100 unit SQ HS HYDROcodone/APAP 7.5-325MG [[place] 7.5-325] 1 tab PO Q4HR PRN PRN Reason: Pain Enalapril [Vasotec] 2.5 mg PO DAILY Aspirin [Adult Low Dose Aspirin EC] 81 mg PO DAILY Metoprolol Succinate (ER) [Toprol Xl] 25 mg PO BID Ibuprofen [Motrin] 800 mg PO TID PRN PRN Reason: Pain INSULIN ASPART (NovoLOG) [NovoLOG (formulary)] See Protocol SQ HS INSULIN ASPART (NovoLOG) [NovoLOG (formulary)] 45 unit SQ AC-TID Gabapentin 600 mg PO TID Discharge Medication List ALPRAZolam [Xanax] 0.25 mg PO Q6H PRN 12/31/16 [History] Albuterol Sulfate [Proair Hfa] 2 puff INHALATION RT-Q6H PRN 12/31/16 [History] Atorvastatin [Lipitor] 20 mg PO HS 12/31/16 [History] Famotidine [Pepcid] 20 mg PO DAILY 12/31/16 [History] Fenofibrate [Lofibra] 160 mg PO DAILY 12/31/16 [History] Loratadine [Claritin] 10 mg PO QAM 12/31/16 [History] Montelukast [Singulair] 10 mg PO DAILY 12/31/16 [History] metFORMIN HCL ER [Glucophage Xr] 500 mg PO BID 12/31/16 [History] Insulin Glargine,Hum.rec.anlog [Toualexiso Solostar] 100 unit SQ HS 12/18/17 [History] Polyethylene Glycol 3350 [Miralax] 17 gm PO DAILY PRN 12/18/17 [History] HYDROcodone/APAP 7.5-325MG [[place] 7.5-325] 1 tab PO Q4HR PRN 01/11/18 [History] Aspirin [Adult Low Dose Aspirin EC] 81 mg PO DAILY 01/24/18 [History] Enalapril [Vasotec] 2.5 mg PO DAILY 01/24/18 [History] Metoprolol Succinate (ER) [Toprol Xl] 25 mg PO BID 07/10/18 [History] INSULIN ASPART (NovoLOG) [NovoLOG (formulary)] 45 unit SQ AC-TID 07/22/18 [History] INSULIN ASPART (NovoLOG) [NovoLOG (formulary)] See Protocol SQ HS 07/22/18 [History] Ibuprofen [Motrin] 800 mg PO TID PRN 07/22/18 [History] Gabapentin 600 mg PO TID 10/12/18 [History] Follow up Appointment(s)/Referral(s): Carlos Ling MD [Primary Care Provider] - 1-2 days
[2018-10-14 13:30] VITALS: BP 97/55; PULSE 74; RESP 18
== END 2018-10-14 14:17 | disposition home or self-care (01) | DRG 638 ==
LOC: EC 16:46 → 3NMEDONC 19:58
PROVIDERS: ADMIT Family Medicine; ATTEND Family Medicine
DX: E11.65 Type 2 diabetes mellitus with hyperglycemia (principal); C49.9 Malignant neoplasm of connective and soft tissue, unspecified; C78.00 Secondary malignant neoplasm of unspecified lung; E78.5 Hyperlipidemia, unspecified; F41.9 Anxiety disorder, unspecified; J45.909 Unspecified asthma, uncomplicated; K21.9 Gastro-esophageal reflux disease without esophagitis; M17.0 Bilateral primary osteoarthritis of knee; M79.7 Fibromyalgia; E11.40 Type 2 diabetes mellitus with diabetic neuropathy, unspecified; E11.22 Type 2 diabetes mellitus with diabetic chronic kidney disease; N18.9 Chronic kidney disease, unspecified; I12.9 Hypertensive chronic kidney disease with stage 1 through stage 4 chronic kidney disease, or unspecified chronic kidney disease; T38.0X5A Adverse effect of glucocorticoids and synthetic analogues, initial encounter; Z79.4 Long term (current) use of insulin; Z79.82 Long term (current) use of aspirin; Z79.899 Other long term (current) drug therapy; Z80.8 Family history of malignant neoplasm of other organs or systems; Z90.710 Acquired absence of both cervix and uterus; Z92.21 Personal history of antineoplastic chemotherapy; Z88.0 Allergy status to penicillin; Z88.2 Allergy status to sulfonamides; Z88.8 Allergy status to other drugs, medicaments and biological substances
CPT/HCPCS: 36415; 80053; 82009; 83036; 85025; 96360; 96361; 99284

== ENCOUNTER → 2018-11-07 | Outpatient (CLI) | payer MEDICAID ==
[2018-11-07 10:19] LABS: Anisocytosis Slight; HCT 37.1 % (34.0-46.0); HGB 11.6 gm/dL (11.4-16.0); Hypochromasia Marked; MCH 30.5 pg (25.0-35.0); MCHC 31.2 g/dL (31.0-37.0); MCV 97.6 fL (80.0-100.0); Macrocytosis Slight; Mean Platelet Volume 7.1; Platelet Count 271 k/uL (150-450); Poikilocytosis Slight; RDW 18.7 % (11.5-15.5); WBC 8.6 k/uL (3.8-10.6)
[2018-11-07 10:31] LABS: ALT 44 U/L (9-52); AST 50 U/L (14-36); Albumin 3.4 g/dL (3.5-5.0); Alkaline Phosphatase 105 U/L (38-126); Anion Gap 8 mmol/L; Blood Urea Nitrogen 13 mg/dL (7-17); Calcium 9.2 mg/dL (8.4-10.2); Carbon Dioxide 24 mmol/L (22-30); Chloride 103 mmol/L (98-107); Glucose 323 mg/dL (74-99); Sodium 135 mmol/L (137-145); Total Bilirubin 0.6 mg/dL (0.2-1.3); Total Protein 5.6 g/dL (6.3-8.2)
--- NOTE | 2018-11-07 13:31 | CT ---
EXAMINATION TYPE: CT ChestAbdPelvis w con DATE OF EXAM: 11/07/2018 COMPARISON: CT chest abdomen and pelvis September 13, 2018 and older CTs. HISTORY: Liposarcoma per order Automated Exposure Control for Dose Reduction was Utilized. CONTRAST: CT scan of the thorax, abdomen and pelvis is performed with oral and with IV Contrast, patient inject ed with 100 mL of Isovue 300. FINDINGS: LUNGS: Stable 4 to 5 mm right upper lobe nodule axial image 19 not significantly changed from Septemb er 18, 2017 study. There are 2 2 to 3 mm nodule right midlung anteriorly axial image 28 not significa ntly changed from 2017 study. There is stable 3 to 4 mm right middle lobe nodule axial image 34 uncha nged from 2017. Stable 3 mm lateral right lower lobe nodule axial image 34. Interval improvement in n odular consolidation and/or atelectasis in the posterior lung bases with some residual left medial lo wer lung nodular consolidation axial image 33 measuring 7 x 5 mm some patchy groundglass opacity in b oth lower lungs is present. Slightly more irregular consolidation is seen superior to this axial imag e 27 that is slightly more nodular appearance and needs continued follow-up, I favor consolidation or atelectasis over true nodule. Some ill-defined infiltrate is seen superior to this axial image 23. S ome prominence of chest wall fat into the bilateral pleura remains present. There is stable 3 mm left lower lobe nodule axial image 31. There is poorly visualized 4 to 5 mm nodu le axial image 32 anterior and lateral to this. Neither significant change from 2017. The 4 mm latera l left upper lobe nodule on prior study is less well-seen on current study near axial image 21. No de finitive new nodules are present. MEDIASTINUM: There are no greater than 1 cm hilar or mediastinal lymph nodes. No cardiomegaly or pe ricardial effusion is seen. OTHER: No additional significant abnormality is seen. LIVER/GB: Liver remains diffusely low dense consistent with diffuse fatty infiltration. PANCREAS: No significant abnormality is seen. SPLEEN: No significant abnormality is seen. ADRENALS: No significant abnormality is seen. KIDNEYS: Stable subcentimeter simple appearing cyst anteriorly right kidney lower pole level axial im age 77. Circumaortic left renal vein is redemonstrated which is a normal variant. BOWEL: There is persistent left lower quadrant colostomy with parastomal hernia of mesenteric fat. No suspicious small or large bowel dilatation is present. Oral contrast reaches level of terminal ileum . GENITAL ORGANS: Uterus is surgically absent. LYMPH NODES: No greater than 1cm abdominal or pelvic lymph nodes are appreciated. OSSEOUS STRUCTURES: Disc space narrowing with vacuum disc phenomenon L5-S1 level is redemonstrated. Multilevel facet arthropathy throughout lower lumbar spine is noted. OTHER: Heterogeneous presacral mass with adjacent clips anteriorly measures approximately 8.1 x 3.9 c m current study image 116 not significant change from most recent CT. I do not see occlusion of the l eft iliac artery on current study. IMPRESSION: Presacral mass or known liposarcoma not significant change in size or appearance from mos t recent CT. Stable nonspecific pulmonary nodules. No new suspicious masses or adenopathy.
== END | disposition home or self-care (01) ==
LOC: RADCTMAIN 08:57
PROVIDERS: ATTEND Internal Medicine Hematology & Oncology
DX: R91.8 Other nonspecific abnormal finding of lung field (principal); C49.9 Malignant neoplasm of connective and soft tissue, unspecified; Z88.0 Allergy status to penicillin; Z88.1 Allergy status to other antibiotic agents; Z88.2 Allergy status to sulfonamides; Z88.8 Allergy status to other drugs, medicaments and biological substances
CPT/HCPCS: 80053; 85027; 71260; 74177; 36415; Q9967

== ENCOUNTER → 2019-02-08 | Outpatient (CLI) | payer MEDICAID ==
[2019-02-08 08:56] LABS: African American GFR (CKD) >90 (>60 ml/min/1.73 sqM); Blood Urea Nitrogen 15 mg/dL (7-17)
--- NOTE | 2019-02-08 12:22 | CT ---
EXAMINATION TYPE: CT ChestAbdPelvis w con DATE OF EXAM: 02/08/2019 COMPARISON: CT November 07, 2018 and older CTs. HISTORY: Follow up liposarcoma originally diagnosed in 2017 completed chemotherapy and radiation arya tment CT DLP: 1583.7 mGycm. Automated Exposure Control for Dose Reduction was Utilized. CONTRAST: CT scan of the thorax, abdomen and pelvis is performed with oral and with IV Contrast, patient inject ed with 100 mL of Isovue 300. FINDINGS: LUNGS: Stable 4 mm right upper lobe nodule slice image 19 unchanged from April 17, 2017 study. Th e 2 to 3 mm anterior right mid lung nodule axial image 28 are not significantly changed from 2017 daysi dy. Below this there is 3 to 4 mm right middle lobe nodule image 33 perhaps slightly more prominent f rom prior studies should be followed. Right lateral 3 mm nodule axial image 34 is less well seen pres umed stable. More prominent dependent atelectasis right lower lobe. No new nodules are evident. Mild biapical parenchymal scarring. Increasing atelectatic change left lung base. Continued improveme nt in left basilar medial opacity. Masslike consolidation superior medial left lower lobe axial image 27 shows no significant interval progression but not interval resolution. No new nodules or masses. Prominence of chest wall fat into the pleura remains present bilaterally. MEDIASTINUM: There are no greater than 1 cm hilar or mediastinal lymph nodes. No cardiomegaly or pe ricardial effusion is seen. LIVER/GB: Diffuse fatty infiltration of liver is redemonstrated. PANCREAS: No significant abnormality is seen. SPLEEN: No significant abnormality is seen. ADRENALS: No significant abnormality is seen. KIDNEYS: Stable subcentimeter lesion anterior right kidney image 44 too small to further characterize . Symmetric cortical medullary uptake and excretion from both kidneys without hydronephrosis seen timoteo aterally. BOWEL: Oral contrast reaches level of cecum. No suspicious small or large bowel dilatation. Persisten t left lower quadrant colostomy GENITAL ORGANS: Uterus is surgically absent. Surgical clips left pelvis are again seen. LYMPH NODES: No greater than 1cm abdominal or pelvic lymph nodes are appreciated. OSSEOUS STRUCTURES: Multilevel spurring of the spine. Facet arthropathy and disc space narrowing lowe r lumbar levels. OTHER: Stable presacral oval soft tissue measuring 7.0 x 3.2 cm axial image 118 extending to left of midline. There is however new heterogeneous mass superior to anterior marginal bladder measuring nearly 11 cm transversely by 8 cm AP diameter by nearly 9 cm craniocaudal diameter with clips along inferior yisel n consistent with recurrent tumor or neoplasm. There is new subcentimeter nodularity extending into t he left mid to lower abdomen including just over 1.0 cm nodules adjacent to the ostomy site axial eleonora ge 95. IMPRESSION: Recurrent local neoplasm along the anterior superior margin of the bladder from most rece nt CT with new peritoneal disease or adenopathy also felt present.
== END | disposition home or self-care (01) ==
LOC: RADCTMAIN 07:52
PROVIDERS: ATTEND Internal Medicine Hematology & Oncology
DX: C67.9 Malignant neoplasm of bladder, unspecified (principal); C49.9 Malignant neoplasm of connective and soft tissue, unspecified
CPT/HCPCS: 82565; 84520; 71260; 74177; 36415; Q9967

== ENCOUNTER 2019-05-08 12:51 | Inpatient (IN) | payer MEDICAID ==
[2019-05-08] MEDS ORDERED: IBUPROFEN 600 MG TAB PO STA (13:56)
[2019-05-08] MEDS ORDERED: ACETAMINOPHEN TAB 500 MG TAB PO STA (13:56)
[2019-05-08] MEDS ORDERED: SODIUM CHLORIDE 0.9% 1,000 ML IV STA ×2 (13:56→16:17)
[2019-05-08] MEDS ORDERED: SODIUM CHLORIDE 0.9% 500 ML 500 ML IV STA (13:56)
--- NOTE | 2019-05-08 14:13 | ED ---
Fever HPI - General Chief Complaint: Fever Stated Complaint: nausea, weakness, ca pt Time Seen by Provider: 05/08/19 13:33 Source: patient, RN notes reviewed, old records reviewed Mode of arrival: wheelchair Limitations: no limitations - History of Present Illness Initial Comments: This is a 58-year-old female the ER for evaluation. Patient is a complex medical history significant for multiple abdominal surgeries, significant CA with multiple tumors throughout her abdomen. Patient presents with fever today not feeling well decreased appetite. Patient does relate to recently taking and starting morphine for control of her pain is narcosis has become the primary don't work anymore. She is employed worse with fever today shows a start new trial therapy and [facility] but with fever they were told not to come out to get the child started today as he cannot initiate with the illness that she currently has put as well as a 23 hour patient is having some symptoms. Physical mild sore throat no cough no significant diarrhea into her ostomy or blood into her ostomy and some decreased urination. No rashes noted she has abdominal pain which is improved on the morphine but worse from baseline MD Complaint: fever, malaise, weakness -: days(s) (2) Temperature Source: subjective Context: on chemotherapy Associated Symptoms: shortness of breath, abdominal pain, nausea, diarrhea, night sweats Treatments Prior to Arrival: none - Related Data Home Medications Medication Instructions Recorded Confirmed ALPRAZolam [Xanax] 0.25 mg PO Q6H PRN 12/31/16 05/08/19 Albuterol Sulfate [Proair Hfa] 2 puff INHALATION RT-Q6H PRN 12/31/16 05/08/19 Atorvastatin [Lipitor] 20 mg PO HS 12/31/16 05/08/19 Famotidine [Pepcid] 20 mg PO DAILY 12/31/16 05/08/19 Fenofibrate [Lofibra] 160 mg PO DAILY 12/31/16 05/08/19 Loratadine [Claritin] 10 mg PO QAM 12/31/16 05/08/19 Montelukast [Singulair] 10 mg PO DAILY 12/31/16 05/08/19 metFORMIN HCL ER [Glucophage Xr] 500 mg PO BID 12/31/16 05/08/19 Insulin Glargine,Hum.rec.anlog 100 unit SQ 12/18/17 05/08/19 [Grover Kowalski] Polyethylene Glycol 3350 [Miralax] 17 gm PO DAILY PRN 12/18/17 05/08/19 HYDROcodone/APAP 7.5-325MG [[place] 1 tab PO Q4HR PRN 01/11/18 05/08/19 7.5-325] Aspirin [Adult Low Dose Aspirin EC] 81 mg PO DAILY 01/24/18 05/08/19 Enalapril [Vasotec] 2.5 mg PO DAILY 01/24/18 05/08/19 INSULIN ASPART (NovoLOG) [NovoLOG 40 unit SQ AC-TID 07/22/18 05/08/19 (formulary)] INSULIN ASPART (NovoLOG) [NovoLOG See Protocol SQ HS 07/22/18 05/08/19 (formulary)] Ibuprofen [Motrin] 400 - 800 mg PO TID PRN 07/22/18 05/08/19 Gabapentin [Neurontin] 400 mg PO TID 05/08/19 05/08/19 Metoprolol Succinate [Toprol XL] 25 mg PO BID 05/08/19 05/08/19 Ondansetron HCl [Zofran] 8 mg PO Q8H 05/08/19 05/08/19 Allergies Allergy/AdvReac Type Severity Reaction Status Date / Time Penicillins Allergy Intermediate Dyspnea/Rolando Verified 05/08/19 13:22 h Sulfa (Sulfonamide Allergy Intermediate Rash/Hives Verified 05/08/19 13:22 Antibiotics) cefepime Allergy Mild fever Verified 05/08/19 13:22 artificial sweetner Allergy Severe Rash/Hives Uncoded 05/08/19 13:23 wheezing Review of Systems ROS Statement: Those systems with pertinent positive or pertinent negative responses have been documented in the HPI. ROS Other: All systems not noted in ROS Statement are negative. 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 10/15 second mass removed in pelvic area. last chemo 10/12/2018 History of Any Multi-Drug Resistant Organisms: None Reported Past Surgical History: Adenoidectomy, Appendectomy, Bowel Resection, Section, Hysterectomy, Orthopedic Surgery, Tonsillectomy Additional Past Surgical History / Comment(s): Exploratory lap with pelvic mass removal, port placement, kidney stent/removed, D&C, right lateral salpingo- oophorectomy, colonoscopy, umbilical hernia repair, L knee arthroscopy, L elbow implant then bone removal, third molar removal Past Anesthesia/Blood Transfusion Reactions: Postoperative Nausea & Vomiting (PONV) Past Psychological History: Anxiety Smoking Status: Never smoker Past Alcohol Use History: None Reported Past Drug Use History: None Reported - Past Family History Mother Family Medical History: Cancer Additional Family Medical History / Comment(s): eye cancer, heart disease Father Additional Family Medical History / Comment(s): ALS, . Sister(s) Additional Family Medical History / Comment(s): ALS - General Exam Limitations: no limitations General appearance: alert, in no apparent distress Head exam: Present: atraumatic, normocephalic, normal inspection Eye exam: Present: normal appearance, PERRL, EOMI. Absent: scleral icterus, conjunctival injection, periorbital swelling ENT exam: Present: normal exam, mucous membranes dry Neck exam: Present: normal inspection. Absent: tenderness, meningismus, lymphadenopathy Respiratory exam: Present: normal lung sounds bilaterally. Absent: respiratory distress, wheezes, rales, rhonchi, stridor Cardiovascular Exam: Present: normal rhythm, tachycardia, normal heart sounds. Absent: systolic murmur, diastolic murmur, rubs, gallop, clicks GI/Abdominal exam: Present: soft, normal bowel sounds. Absent: distended, tenderness, guarding, rebound, rigid Extremities exam: Present: normal inspection, full ROM, normal capillary refill. Absent: tenderness, pedal edema, joint swelling, calf tenderness Back exam: Present: normal inspection Neurological exam: Present: alert, oriented X3, CN II-XII intact Psychiatric exam: Present: normal affect, normal mood Skin exam: Present: warm, dry, intact, normal color. Absent: rash Course Vital Signs 05/08/19 05/08/19 12:58 15:15 Temperature 100.6 F H 100.2 F H Pulse Rate 101 H 85 Respiratory 24 16 Rate Blood Pressure 115/67 128/72 O2 Sat by Pulse 94 L 95 Oximetry - Reevaluation(s) Reevaluation #1: 05/08/19 14:13 Medical records reviewed Reevaluation #2: 05/08/19 19:20 Patient requiring significant pain control here in the ER, difficult control pain Reevaluation #3: 05/08/19 19:21 Patient without any improvement in symptoms despite fluid hydration and pain control - Consultations Consultation #1: The patient's oncologist [facility]. Pain grave prognosis, not made treatment options left for patient, hoping for new clinical trial the need patient does not sick Consultation #2: Spoke with Dr. Montero who is agreeable for admission Medical Decision Making - Medical Decision Making 58 female the ER for evaluation presents today for evaluation regards to fever not feeling well nausea dehydration, severe pain. Patient be admitted for pain control fever control treatment of urinary tract infection - Lab Data Result diagrams: 05/08/19 14:20 05/08/19 14:20 Lab Results 05/08/19 05/08/19 05/08/19 Range/Units 14:20 14:20 14:20 WBC 3.4 L (3.8-10.6) k/uL RBC 4.39 (3.80-5.40) m/uL Hgb 12.6 (11.4-16.0) gm/dL Hct 40.6 (34.0-46.0) % MCV 92.6 (80.0-100.0) fL MCH 28.8 (25.0-35.0) pg MCHC 31.1 (31.0-37.0) g/dL RDW 15.0 (11.5-15.5) % Plt Count 153 (150-450) k/uL Neutrophils % 81 % Lymphocytes % 5 % Monocytes % 10 % Eosinophils % 1 % Basophils % 2 % Neutrophils # 2.8 (1.3-7.7) k/uL Lymphocytes # 0.2 L (1.0-4.8) k/uL Monocytes # 0.3 (0-1.0) k/uL Eosinophils # 0.0 (0-0.7) k/uL Basophils # 0.1 (0-0.2) k/uL Sodium 134 L (137-145) mmol/L Potassium 4.1 (3.5-5.1) mmol/L Chloride 99 (98-107) mmol/L Carbon Dioxide 25 (22-30) mmol/L Anion Gap 10 mmol/L BUN 10 (7-17) mg/dL Creatinine 0.82 (0.52-1.04) mg/dL Est GFR (CKD-EPI)AfAm >90 (>60 ml/min/1.73 sqM) Est GFR (CKD-EPI)NonAf 80 (>60 ml/min/1.73 sqM) Glucose 249 H (74-99) mg/dL Plasma Lactic Acid Edwin 0.9 (0.7-2.0) mmol/L Calcium 8.4 (8.4-10.2) mg/dL Phosphorus 2.3 L (2.5-4.5) mg/dL Magnesium 2.1 (1.6-2.3) mg/dL Total Bilirubin 0.9 (0.2-1.3) mg/dL AST 21 (14-36) U/L ALT 9 (9-52) U/L Alkaline Phosphatase 114 (38-126) U/L Total Protein 6.1 L (6.3-8.2) g/dL Albumin 2.9 L (3.5-5.0) g/dL Urine Color Urine Appearance (Clear) Urine pH (5.0-8.0) Ur Specific [place] (1.001-1.035) Urine Protein (Negative) Urine Glucose (UA) (Negative) Urine Ketones (Negative) Urine Blood (Negative) Urine Nitrite (Negative) Urine Bilirubin (Negative) Urine Urobilinogen (<2.0) mg/dL Ur Leukocyte Esterase (Negative) Urine RBC (0-5) /hpf Urine WBC (0-5) /hpf Ur Squamous Epith Cells (0-4) /hpf Amorphous Sediment (None) /hpf Urine Bacteria (None) /hpf Urine Mucus (None) /hpf Influenza Type A RNA (Not Detectd) Influenza Type B (PCR) (Not Detectd) 05/08/19 05/08/19 Range/Units 15:10 Unknown WBC (3.8-10.6) k/uL RBC (3.80-5.40) m/uL Hgb (11.4-16.0) gm/dL Hct (34.0-46.0) % MCV (80.0-100.0) fL MCH (25.0-35.0) pg MCHC (31.0-37.0) g/dL RDW (11.5-15.5) % Plt Count (150-450) k/uL Neutrophils % % Lymphocytes % % Monocytes % % Eosinophils % % Basophils % % Neutrophils # (1.3-7.7) k/uL Lymphocytes # (1.0-4.8) k/uL Monocytes # (0-1.0) k/uL Eosinophils # (0-0.7) k/uL Basophils # (0-0.2) k/uL Sodium (137-145) mmol/L Potassium (3.5-5.1) mmol/L Chloride (98-107) mmol/L Carbon Dioxide (22-30) mmol/L Anion Gap mmol/L BUN (7-17) mg/dL Creatinine (0.52-1.04) mg/dL Est GFR (CKD-EPI)AfAm (>60 ml/min/1.73 sqM) Est GFR (CKD-EPI)NonAf (>60 ml/min/1.73 sqM) Glucose (74-99) mg/dL Plasma Lactic Acid Edwin (0.7-2.0) mmol/L Calcium (8.4-10.2) mg/dL Phosphorus (2.5-4.5) mg/dL Magnesium (1.6-2.3) mg/dL Total Bilirubin (0.2-1.3) mg/dL AST (14-36) U/L ALT (9-52) U/L Alkaline Phosphatase (38-126) U/L Total Protein (6.3-8.2) g/dL Albumin (3.5-5.0) g/dL Urine Color Yellow Urine Appearance Clear (Clear) Urine pH 6.0 (5.0-8.0) Ur Specific [place] 1.015 (1.001-1.035) Urine Protein 1+ H (Negative) Urine Glucose (UA) 3+ H (Negative) Urine Ketones 1+ H (Negative) Urine Blood Trace H (Negative) Urine Nitrite Negative (Negative) Urine Bilirubin Negative (Negative) Urine Urobilinogen 2.0 (<2.0) mg/dL Ur Leukocyte Esterase Moderate H (Negative) Urine RBC 1 (0-5) /hpf Urine WBC 23 H (0-5) /hpf Ur Squamous Epith Cells 4 (0-4) /hpf Amorphous Sediment Rare H (None) /hpf Urine Bacteria Occasional H (None) /hpf Urine Mucus Moderate H (None) /hpf Influenza Type A RNA Not Detected (Not Detectd) Influenza Type B (PCR) Not Detected (Not Detectd) - Radiology Data Radiology results: report reviewed (S x-rays negative for acute disease, CT of pelvis is significantly worse than prior regarding tumor size), image reviewed Disposition Clinical Impression: Fever, Pelvic mass, Cancer associated pain, UTI (urinary tract infection), Dysuria Disposition: ADMITTED IP TO THIS HOSP Condition: Fair Is patient prescribed a controlled substance at d/c from ED?: No Referrals: Carlos Ling MD [Primary Care Provider] - 1-2 days
[2019-05-08] MEDS ORDERED: HYDROmorphone 1 MG/ML 1 ML SYRINGE IVP STA ×4 (14:47→19:17)
[2019-05-08 14:48] LABS: Basophils # (A) 0.1 k/uL (0-0.2); Basophils % (A) 2 %; Eosinophils % (A) 1 %; HCT 40.6 % (34.0-46.0); HGB 12.6 gm/dL (11.4-16.0); Lymphocytes # (A) 0.2 k/uL (1.0-4.8); Lymphocytes % (A) 5 %; MCH 28.8 pg (25.0-35.0); MCHC 31.1 g/dL (31.0-37.0); MCV 92.6 fL (80.0-100.0); Mean Platelet Volume 7.3; Monocytes # (A) 0.3 k/uL (0-1.0); Monocytes % (A) 10 %; Neutrophils # (A) 2.8 k/uL (1.3-7.7); Neutrophils % (A) 81 %; Platelet Count 153 k/uL (150-450); RBC 4.39 m/uL (3.80-5.40); WBC 3.4 k/uL (3.8-10.6)
--- NOTE | 2019-05-08 14:48 | XR ---
EXAMINATION TYPE: XR chest 2V DATE OF EXAM: 05/08/2019 COMPARISON: 07/22/2018 TECHNIQUE: PA and lateral views submitted. HISTORY: Fever FINDINGS: The lungs are clear and there is no pneumothorax, pleural effusion, or focal pneumonia. Diffuse ost eopenia. No overt failure. The heart is prominent. Hypertrophic change of the spine. IMPRESSION: 1. No acute process.
[2019-05-08 15:06] LABS: ALT 9 U/L (9-52); AST 21 U/L (14-36); African American GFR (CKD) >90 (>60 ml/min/1.73 sqM); Albumin 2.9 g/dL (3.5-5.0); Alkaline Phosphatase 114 U/L (38-126); Anion Gap 10 mmol/L; Blood Urea Nitrogen 10 mg/dL (7-17); Calcium 8.4 mg/dL (8.4-10.2); Carbon Dioxide 25 mmol/L (22-30); Chloride 99 mmol/L (98-107); Glucose 249 mg/dL (74-99); Magnesium 2.1 mg/dL (1.6-2.3); Phosphorus 2.3 mg/dL (2.5-4.5); Potassium 4.1 mmol/L (3.5-5.1); Sodium 134 mmol/L (137-145); Total Bilirubin 0.9 mg/dL (0.2-1.3); Total Protein 6.1 g/dL (6.3-8.2)
[2019-05-08 15:35] LABS: Amorphous Sediment,Urine Rare /hpf; Appearance,Urine Clear (Clear); Bacteria,Urine Occasional /hpf; Bilirubin,Urine Negative (Negative); Blood,Urine Trace (Negative); Color,Urine Yellow; Glucose,Urine (UA) 3+ (Negative); Ketones,Urine 1+ (Negative); Leukocyte Esterase,Urine Moderate (Negative); Mucus,Urine Moderate /hpf; Nitrite,Urine Negative (Negative); Protein,Urine 1+ (Negative); RBC,Urine 1 /hpf (0-5); Specific Gravity,Urine 1.015 (1.001-1.035); Squamous Epithelial Cell,Urine 4 /hpf (0-4)
[2019-05-08] MEDS ORDERED: LEVOFLOXACIN 750MG-D5W PMX 750 MG in DEXTROSE/WATER 1 150ML.BAG IVPB STA (16:17)
--- NOTE | 2019-05-08 17:06 | CT ---
EXAMINATION TYPE: CT abdomen pelvis wo con DATE OF EXAM: 05/08/2019 HISTORY: Abdominal pain, history of liposarcoma CT DLP: 907.3 mGycm. Automated Exposure Control for Dose Reduction was Utilized. TECHNIQUE: CT scan of the abdomen and pelvis is performed without oral or IV contrast. COMPARISON: CT chest abdomen and pelvis February 08, 2019 FINDINGS: Within the limitations of a non-contrast study, the following observations are made. LUNG BASES: There is bibasilar linear scarring and/or atelectasis seen. LIVER/GB: Prominent left hepatic lobe redemonstrated. PANCREAS: No significant abnormality is seen. SPLEEN: Mild splenomegaly redemonstrated measuring 13.5 cm long axis axial image 51. ADRENALS: No significant abnormality is seen. KIDNEYS: No significant abnormality is seen. BOWEL: Persistent left lower quadrant colostomy. GENITAL ORGANS: Normal appearing uterus is not seen with certainty. LYMPH NODES: No greater than 1cm abdominal or pelvic lymph nodes are appreciated. OSSEOUS STRUCTURES: No definitive bony destruction. Mild to moderate disc space narrowing L5-S1 level incidentally noted. OTHER: There is persistent large lobulated pelvic mass increased in size from prior study filling yaima ority of upper pelvis where it measures almost 22 cm transversely axial image 120 versus roughly 11 c m prior study. Superior to this there are multiple new peritoneal masses for reference 6.6 x 4.4 cm l esion noted axial image 44. Local mass effect is present. Surgical changes with abnormal soft tissue presacral space axial image 143 without stable or slightly more prominent from prior study. Neoplasm at this level cannot be excluded. IMPRESSION: Marked progression of aggressive metastatic neoplasm of the pelvis and mid to lower abdom en with local mass effect.
[2019-05-08] MEDS ORDERED: PANTOPRAZOLE 40 MG/10 ML VIAL IVP STA (19:17)
[2019-05-08] MEDS ORDERED: HYDROmorphone 1 MG/ML 1 ML SYRINGE IM PRN (19:17)
[2019-05-08] MEDS ORDERED: SODIUM CHLORIDE 0.9% 1,000 ML IV ONE (19:17)
[2019-05-08] MEDS ORDERED: ONDANSETRON 4 MG/2 ML VIAL IVP STA (19:17)
[2019-05-08] MEDS ORDERED: LORazepam 2 MG/ML INJ IV STA (19:17)
[2019-05-08] MEDS ORDERED: DEXTROSE 5%-0.45% NACL 1,000 ML IV ONE (19:17)
[2019-05-08 21:54] VITALS: BMI 29.5
[2019-05-08] MEDS: LORazepam 2 MG/ML INJ IV PRN (22:57)
[2019-05-09] MEDS: ONDANSETRON 4 MG/2 ML VIAL IVP PRN ×2 (03:17→17:27)
[2019-05-09] MEDS: LORazepam 2 MG/ML INJ IV PRN ×3 (03:17→19:34)
[2019-05-09 07:12] LABS: Glucose,Whole Blood 174 mg/dL (75-99)
[2019-05-09] MEDS: HYDROmorphone 1 MG/ML 1 ML SYRINGE IVP PRN ×4 (08:32→17:27)
[2019-05-09] MEDS ORDERED: PANTOPRAZOLE 40 MG/10 ML VIAL IVP SCH (09:00)
[2019-05-09 11:15] LABS: Glucose,Whole Blood 214 mg/dL (75-99)
[2019-05-09] MEDS: SODIUM CHLORIDE 0.9% 1,000 ML IV SCH (13:14)
--- NOTE | 2019-05-09 14:59 | P.HPIM ---
History of Present Illness H&P Date: 05/09/19 Chief Complaint: Abdominal pain, fevers This is a 58-year-old female with history of chronic intermittent asthma, liposarcoma, diabetes mellitus, fibromyalgia, gastroesophageal reflux disease, hyperlipidemia, hypertension, osteoarthritis, kidney disease, anxiety , multiple abdominal surgeries admitted with right lower quadrant abdominal pain, fevers, decreased appetite. Abdomen/pelvis CT reporting persistent large lobulated pelvic mass increased in size from prior study feeling majority of upper pelvis measuring approximately 22 cm transverse-versus 11 cm per study, multiple new peritoneal masses, local mass effect present, surgical changes with abnormal soft tissue presacral space without stable or slightly more prominent from prior study, neoplasm cannot be excluded. Mild Splenomegaly. Chest x-ray nonacute. T-max 100.6, WBC 3.4, hemoglobin 12.6, platelets 153, neutrophils 81. BUN 10 creatinine 0.82. Blood sugars is 170-250. Calcium 8.4 phosphorus 2.3 max 2.1. T bili 0.9 LFTs within normal limits albumin 2.9. Urine reporting moderate mucus occasional bacteria high urine WBCs of 23 moderate leukocytes. Urine culture pending. Negative for influenzaA/B.VSS. Review of Systems ROS Statement: Those systems with pertinent positive or pertinent negative responses have been documented in the HPI. ROS Other: All systems not noted in ROS Statement are negative. 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 10/15 second mass removed in pelvic area. last chemo 10/12/2018, kidney stones History of Any Multi-Drug Resistant Organisms: None Reported Past Surgical History: Adenoidectomy, Appendectomy, Bowel Resection, Section, Hysterectomy, Orthopedic Surgery, Tonsillectomy Additional Past Surgical History / Comment(s): Exploratory lap with pelvic mass removal, port placement and removal, kidney stent/removed, D&C, right lateral salpingo-oophorectomy, colonoscopy, umbilical hernia repair, L knee arthroscopy, L elbow implant then bone removal, third molar removal Past Anesthesia/Blood Transfusion Reactions: Postoperative Nausea & Vomiting (PONV) Past Psychological History: Anxiety Additional Psychological History / Comment(s): Pt resides with her spouse and currently 2 children at home and another child at college. She is independent. She states she has some issues with anxiety, especially at night time. She uses xanax which helps. Smoking Status: Never smoker Past Alcohol Use History: None Reported Past Drug Use History: None Reported - Past Family History Mother Family Medical History: Cancer Additional Family Medical History / Comment(s): eye cancer, heart disease Father Additional Family Medical History / Comment(s): ALS, . Sister(s) Additional Family Medical History / Comment(s): ALS - Medications and Allergies Home Medications Medication Instructions Recorded Confirmed Type ALPRAZolam [Xanax] 0.25 mg PO Q6H PRN 12/31/16 05/08/19 History Albuterol Sulfate [Proair Hfa] 2 puff INHALATION RT-Q6H PRN 12/31/16 05/08/19 History Atorvastatin [Lipitor] 20 mg PO HS 12/31/16 05/08/19 History Famotidine [Pepcid] 20 mg PO DAILY 12/31/16 05/08/19 History Fenofibrate [Lofibra] 160 mg PO DAILY 12/31/16 05/08/19 History Loratadine [Claritin] 10 mg PO QAM 12/31/16 05/08/19 History Montelukast [Singulair] 10 mg PO DAILY 12/31/16 05/08/19 History metFORMIN HCL ER [Glucophage Xr] 500 mg PO BID 12/31/16 05/08/19 History Insulin Glargine,Hum.rec.anlog 100 unit SQ HS 12/18/17 05/08/19 History [Toujeo Solostar] Polyethylene Glycol 3350 [Miralax] 17 gm PO DAILY PRN 12/18/17 05/08/19 History HYDROcodone/APAP 7.5-325MG [[place] 1 tab PO Q4HR PRN 01/11/18 05/08/19 History 7.5-325] Aspirin [Adult Low Dose Aspirin EC] 81 mg PO DAILY 01/24/18 05/08/19 History Enalapril [Vasotec] 2.5 mg PO DAILY 01/24/18 05/08/19 History INSULIN ASPART (NovoLOG) [NovoLOG 40 unit SQ AC-TID 07/22/18 05/08/19 History (formulary)] INSULIN ASPART (NovoLOG) [NovoLOG See Protocol SQ HS 07/22/18 05/08/19 History (formulary)] Ibuprofen [Motrin] 400 - 800 mg PO TID PRN 07/22/18 05/08/19 History Gabapentin [Neurontin] 400 mg PO TID 05/08/19 05/08/19 History Metoprolol Succinate [Toprol XL] 25 mg PO BID 05/08/19 05/08/19 History Ondansetron HCl [Zofran] 8 mg PO Q8H 05/08/19 05/08/19 History Allergies Allergy/AdvReac Type Severity Reaction Status Date / Time Penicillins Allergy Intermediate Dyspnea/Rolando Verified 05/08/19 13:22 h Sulfa (Sulfonamide Allergy Intermediate Rash/Hives Verified 05/08/19 13:22 Antibiotics) cefepime Allergy Mild fever Verified 05/08/19 13:22 artificial sweetner Allergy Severe Rash/Hives Uncoded 05/08/19 13:23 wheezing Physical Exam Vitals: Vital Signs Temp Pulse Pulse Resp BP BP Pulse Ox 05/09/19 05:12 98.7 F 95 20 111/59 94 L 05/08/19 22:00 97.8 F 16 125/59 96 05/08/19 20:50 87 113/65 96 05/08/19 20:30 84 110/62 95 05/08/19 20:25 98.5 F 88 20 110/62 96 05/08/19 20:00 86 127/80 95 05/08/19 19:30 86 119/76 97 05/08/19 18:50 87 118/71 95 05/08/19 18:30 88 111/72 96 05/08/19 17:50 114/65 96 05/08/19 17:20 88 122/69 94 L 05/08/19 16:50 86 117/69 95 05/08/19 16:10 107/62 97 05/08/19 15:50 123/67 94 L 05/08/19 15:30 128/72 92 L 05/08/19 15:15 100.2 F H 85 16 128/72 95 10/09/19 12:58 100.6 F H 101 H 24 115/67 94 L Intake and Output 05/08/19 05/09/19 05/09/19 22:59 06:59 14:59 Intake Total 900 Balance 900 Intake: Intake, IV Titration 900 Amount Sodium Chloride 0.9% 1, 900 000 ml @ 100 mls/hr IV . Q10H ONE Rx#:[id number] Other: Voiding Method Toilet Bedside Commode # Voids 1 PHYSICAL EXAM: VITAL SIGNS: As above GENERAL: Sitting up in bed, no acute distress HEENT: Conjunctivae normal. eyes normal. NECK: No JVD. No thyroid enlargement. No LNs CARDIOVASCULAR: S1, S2 regular.. No murmur RESPIRATION: Breath sounds diminished in the bases. No rhonchi or crackles. No bronchial breathing. ABDOMEN: Soft, generalized tenderness, No guarding. masses palpable. Functioning Left lower quadrant ostomy.Bowel sounds heard. LEGS: No edema. no swelling PSYCHIATRY: Alert and oriented X3, mood and affect normal. NERVOUS SYSTEM: Cranial N 2-12 grossly normal. Moves all 4 limbs. Diffuse weakness No focal deficits. Strength and sensation grossly intact.. Skin: no lesions, no rash Lymphatic system. No LN neck axilla. Results CBC & Chem 7: 05/08/19 14:20 05/08/19 14:20 Labs: Abnormal Lab Results - Last 24 Hours (Table) 05/08/19 05/08/19 05/08/19 Range/Units 14:20 14:20 15:10 WBC 3.4 L (3.8-10.6) k/uL Lymphocytes # 0.2 L (1.0-4.8) k/uL Sodium 134 L (137-145) mmol/L Glucose 249 H (74-99) mg/dL POC Glucose (mg/dL) (75-99) mg/dL Phosphorus 2.3 L (2.5-4.5) mg/dL Total Protein 6.1 L (6.3-8.2) g/dL Albumin 2.9 L (3.5-5.0) g/dL Urine Protein 1+ H (Negative) Urine Glucose (UA) 3+ H (Negative) Urine Ketones 1+ H (Negative) Urine Blood Trace H (Negative) Ur Leukocyte Esterase Moderate H (Negative) Urine WBC 23 H (0-5) /hpf Amorphous Sediment Rare H (None) /hpf Urine Bacteria Occasional H (None) /hpf Urine Mucus Moderate H (None) /hpf 05/09/19 Range/Units 07:11 WBC (3.8-10.6) k/uL Lymphocytes # (1.0-4.8) k/uL Sodium (137-145) mmol/L Glucose (74-99) mg/dL POC Glucose (mg/dL) 174 H (75-99) mg/dL Phosphorus (2.5-4.5) mg/dL Total Protein (6.3-8.2) g/dL Albumin (3.5-5.0) g/dL Urine Protein (Negative) Urine Glucose (UA) (Negative) Urine Ketones (Negative) Urine Blood (Negative) Ur Leukocyte Esterase (Negative) Urine WBC (0-5) /hpf Amorphous Sediment (None) /hpf Urine Bacteria (None) /hpf Urine Mucus (None) /hpf Microbiology - Last 24 Hours (Table) 05/08/19 15:10 Urine Culture - Preliminary Urine,Voided Thrombosis Risk Factor Assmnt - Choose All That Apply Any of the Below Risk Factors Present?: Yes Each Factor Represents 1 point: Age 41-60 years, Obesity (BMI >25) Other Risk Factors: Yes Each Risk Factor Represents 2 Points: Malignancy Other congenital or acquired thrombophilia - If yes, enter type in comment: No Thrombosis Risk Factor Assessment Total Risk Factor Score: 4 Thrombosis Risk Factor Assessment Level: Moderate Risk Assessment and Plan Assessment: Abdominal pain with fevers, marked progression of aggressive metastatic neoplasm of the pelvis and mid to lower abdomen with local mass effect per CT, in a patient with liposarcoma diagnosed 12/31/2016, Patient had stopped treatment in September 2018 and has opted to proceed with a clinical trial at [facility]. -Possible acute UTI with dysuria, culture pending -Diabetes mellitus -Gastroesophageal reflux disease -Fibromyalgia -Chronic intermittent asthma -Hypertension -Hyperlipidemia -Osteoarthritis -Chronic kidney disease, stage II -Multiple abdominal surgeries -Anxiety -PONV Plan: Continue on current medication regime ,monitoring and symptomatic treatment. Pain management. IV fluid hydration Continue with IV antibiotics,Zofran. Cultures pending. Oncology consulted. Home meds have been reviewed and resumed accordingly. Lab has been notified to process her culture on a stat basis. Patient's oncologist is out of [facility], patient is in a clinical trial starting this week. As soon as we are able to rule out UTI, case management has been notified to arrange for transfer. Prognosis guarded given multiple complex medical issues. The impression and plan of care has been dictated as directed. : I performed a history and examination of this patient, discussed the same with the dictator. I agree with the dictator's note ,documented as a scribe. Any additional findings or plans will be noted.
[2019-05-09] MEDS ORDERED: LEVOFLOXACIN 750MG-D5W PMX 750 MG in DEXTROSE/WATER 1 150ML.BAG IVPB SCH (16:00)
[2019-05-09 17:04] LABS: Glucose,Whole Blood 232 mg/dL (75-99)
[2019-05-09 20:16] LABS: Glucose,Whole Blood 179 mg/dL (75-99)
--- NOTE | 2019-05-09 20:51 | XR ---
EXAMINATION TYPE: XR mandible complete DATE OF EXAM: 05/09/2019 COMPARISON: NONE HISTORY: Pain. Recent dental surgery. TECHNIQUE: 5 views FINDINGS: Mandibular ring appears intact. I see no bony destructive process. There is no evidence of a fracture. Temporomandibular joints appear intact. IMPRESSION: Negative mandible exam.
[2019-05-09] MEDS ORDERED: HYDROmorphone 1 MG/ML 1 ML SYRINGE IM SCH (21:00)
[2019-05-09] MEDS ORDERED: HYDROmorphone 1 MG/ML 1 ML SYRINGE IVP SCH (21:30)
[2019-05-09] MEDS: HYDROmorphone 1 MG/ML 1 ML SYRINGE IVP SCH (23:41)
[2019-05-10] MEDS: LORazepam 2 MG/ML INJ IV PRN ×2 (01:14→22:19)
[2019-05-10] MEDS: HYDROmorphone 1 MG/ML 1 ML SYRINGE IVP SCH ×4 (03:13→11:56)
[2019-05-10] MEDS: SODIUM CHLORIDE 0.9% 1,000 ML IV SCH ×3 (03:17→11:58)
[2019-05-10] MEDS: ONDANSETRON 4 MG/2 ML VIAL IVP PRN ×4 (05:43→23:58)
[2019-05-10 07:09] LABS: Glucose,Whole Blood 188 mg/dL (75-99)
[2019-05-10] MEDS: PANTOPRAZOLE 40 MG TABLET PO SCH (08:46)
[2019-05-10 11:30] LABS: Glucose,Whole Blood 179 mg/dL (75-99)
[2019-05-10 12:23] LABS: HCT 29.1 % (34.0-46.0); Hypochromasia Slight; MCH 30.8 pg (25.0-35.0); MCHC 33.3 g/dL (31.0-37.0); MCV 92.4 fL (80.0-100.0); Mean Platelet Volume 6.8; Platelet Count 184 k/uL (150-450); RBC 3.15 m/uL (3.80-5.40); RDW 15.2 % (11.5-15.5); WBC 3.1 k/uL (3.8-10.6)
[2019-05-10 12:31] LABS: African American GFR (CKD) >90 (>60 ml/min/1.73 sqM); Anion Gap 9 mmol/L; Blood Urea Nitrogen 7 mg/dL (7-17); Calcium 8.1 mg/dL (8.4-10.2); Carbon Dioxide 22 mmol/L (22-30); Chloride 106 mmol/L (98-107); Glucose 177 mg/dL (74-99); Potassium 3.5 mmol/L (3.5-5.1); Sodium 137 mmol/L (137-145)
[2019-05-10 12:34] LABS: HGB 9.7 gm/dL (11.4-16.0)
[2019-05-10] MEDS ORDERED: HYDROmorphone 1 MG/ML 1 ML SYRINGE IVP PRN (13:14)
[2019-05-10] MEDS: oxyCODONE-APAP 10-325MG 1 EACH TAB PO PRN ×2 (14:01→18:12)
--- NOTE | 2019-05-10 14:15 | P.PN ---
Subjective Progress Note Date: 05/10/19 This is a 58-year-old female with history of chronic intermittent asthma, liposarcoma, diabetes mellitus, fibromyalgia, gastroesophageal reflux disease, hyperlipidemia, hypertension, osteoarthritis, kidney disease, anxiety , multiple abdominal surgeries admitted with right lower quadrant abdominal pain, fevers, decreased appetite. Abdomen/pelvis CT reporting persistent large lobulated pelvic mass increased in size from prior study feeling majority of upper pelvis measuring approximately 22 cm transverse-versus 11 cm per study, multiple new peritoneal masses, local mass effect present, surgical changes with abnormal soft tissue presacral space without stable or slightly more prominent from prior study, neoplasm cannot be excluded. Mild Splenomegaly. Chest x-ray nonacute. T-max 100.6, WBC 3.4, hemoglobin 12.6, platelets 153, neutrophils 81. BUN 10 creatinine 0.82. Blood sugars is 170-250. Calcium 8.4 phosphorus 2.3 max 2.1. T bili 0.9 LFTs within normal limits albumin 2.9. Urine reporting moderate mucus occasional bacteria high urine WBCs of 23 moderate leukocytes. Urine culture pending. Negative for influenzaA/B.VSS. 05/10/2019 urine culture negative, afebrile, last pending. Saba at Dr.Rashmi Lee, Oncologist at [facility], stating patient had an appointment for Monday for a trial medication to be initiated without inpatient admission orders noted. Case management verifying with [facility] whether or not patient has a pre-scheduled bed, for transfer. Preauth in progress. Requiring Dilaudid IV push for abdominal pain control. Objective - Vital Signs Vital signs: Vital Signs Temp 98.0 F 05/10/19 09:11 Pulse 91 05/10/19 09:11 Resp 17 05/10/19 09:11 BP 126/70 05/10/19 09:11 Pulse Ox 94 L 05/10/19 09:11 Intake & Output 05/09/19 05/10/19 05/10/19 18:59 06:59 18:59 Intake Total 900 1979 Balance 900 1979 Intake: Intake, IV Titration 900 800 Amount Sodium Chloride 0.9% 1, 900 000 ml @ 100 mls/hr IV . Q10H [facility] Rx#:[id number] Sodium Chloride 0.9% 1, 800 000 ml @ 100 mls/hr IV . Q10H [facility] Rx#:[id number] Oral 1180 Other: Voiding Method Toilet Toilet Toilet Bedside Commode Bedside Commode Bedside Commode # Voids 2 1 - Exam VITAL SIGNS: As above GENERAL: Sitting up in bed, no acute distress HEENT: Conjunctivae normal. eyes normal. NECK: No JVD. No thyroid enlargement. No LNs CARDIOVASCULAR: S1, S2 regular.. No murmur RESPIRATION: Breath sounds diminished in the bases. No rhonchi or crackles. No bronchial breathing. ABDOMEN: Soft, generalized tenderness, No guarding. masses palpable. Functioning Left lower quadrant ostomy.Bowel sounds heard. LEGS: No edema. no swelling PSYCHIATRY: Alert and oriented X3, mood and affect normal. NERVOUS SYSTEM: Cranial N 2-12 grossly normal. Moves all 4 limbs. Diffuse weakness No focal deficits. Strength and sensation grossly intact.. Skin: no lesions, no rash Lymphatic system. No LN neck axilla. Microbiology 05/08/19 15:10 Urine,Voided Urine Culture - Final 05/08/19 14:20 Blood Blood Culture - Preliminary No Growth after 24 hours - Labs CBC & Chem 7: 05/10/19 11:22 05/10/19 11:22 Labs: Abnormal Lab Results - Last 24 Hours (Table) 05/09/19 05/09/19 05/09/19 Range/Units 11:03 17:02 20:15 POC Glucose (mg/dL) 214 H 232 H 179 H (75-99) mg/dL 05/10/19 Range/Units 07:08 POC Glucose (mg/dL) 188 H (75-99) mg/dL Microbiology - Last 24 Hours (Table) 05/08/19 15:10 Urine Culture - Final Urine,Voided 05/08/19 14:20 Blood Culture - Preliminary Blood No Growth after 24 hours Assessment and Plan Assessment: Abdominal pain with fevers, marked progression of aggressive metastatic neoplasm of the pelvis and mid to lower abdomen with local mass effect per CT, in a patient with liposarcoma diagnosed 12/31/2016, Patient had stopped treatment in September 2018 and has opted to proceed with a clinical trial at [facility]. -UTI ruled out, culture negative -Diabetes mellitus -Gastroesophageal reflux disease -Fibromyalgia -Chronic intermittent asthma -Hypertension -Hyperlipidemia -Osteoarthritis -Chronic kidney disease, stage II -Multiple abdominal surgeries -Anxiety -PONV Plan: Continue on current medication regime ,monitoring and symptomatic treatment. Pain management-adjust to wean off Dilaudid IV push, using oral agents. Discharge planning in progress for tomorrow, once able to control pain on oral agents.MiraLAX and Senokot also added to med regimen to prevent opioid constipation .plan of care discussed with patient and family at bedside, verbalizing understanding of and agreement with. Prognosis guarded given multiple complex medical issues. The impression and plan of care has been dictated as directed. : I performed a history and examination of this patient, discussed the same with the dictator. I agree with the dictator's note ,documented as a scribe. Any additional findings or plans will be noted.
[2019-05-10] MEDS: POLYETHYLENE GLYCOL 3350 17 GM POWD.PACK PO SCH (15:44)
[2019-05-10] MEDS: HYDROmorphone 2 MG TAB PO SCH ×2 (15:44→23:59)
[2019-05-10] MEDS: SENNOSIDES-DOCUSATE SODIUM 1 EACH TAB PO SCH ×2 (15:44→22:08)
[2019-05-10] MEDS ORDERED: LEVOFLOXACIN 750 MG TAB PO SCH (16:00)
[2019-05-10 17:08] LABS: Glucose,Whole Blood 171 mg/dL (75-99)
--- NOTE | 2019-05-10 20:01 | P.CONS ---
History of Present Illness - Reason for Consult Consult date: 05/10/19 Pain and Fever, Known Cancer Requesting physician: Amber Jama - Chief Complaint Pain - History of Present Illness Ms Mcrae is a pleasant WF, initially seen in consult at [facility] on 01/10/17. She had presented with progressive difficulty with urination and defecation over the past 4-6 weeks, with a feeling of " heaviness " in the lower abdomen. CT scan of the AP revealed a 14 x 9 cm pelvic mass in the midline, extending to the pelvic floor. No significant adenopathy was noted. Colonoscopy showed extrinsic compression. She had an exploratory laparotomy with excision of the mass on 01/04/17. This was positive for a high grade dedifferentiated liposarcoma, 14.2 cm in maximal dimension, grade III, extending to margins. CT chest on 01/10/17 showed borderline rt broncial adenopathy, and b/l lower lobes atelectasis and small effusions. The pt tolerated surgery well, other than mildly delayed return of bowel function. She was referred to the [facility] post discharge. Adjuvant chemotherapy with Adriamycin and Ifosfamide was recommended. The pt wanted to have her treatment locally, and was seen for her 1st OV on 02/06/17. She started NORIS chemo on 02/20/17 and is s/p 4 cycles, completing those in 05/16 She was referred back to the [facility] and had RT followed by radical surgery including AP resection, left ureteral and iliac vessel resection , in 10/15. She had a catheter associated DVT, and was on Xarelto till 02/14. She has had ureteral reconstruction and reimplantation. She had a renal stone removed in 02/14. She was seen at her own request in 03/17 and referred to PMR for pain management to Dr Rausch. Her CT scan on 04/11/18 showed a 3 x 3 x 2.5 cm mass ant to the sacrum, at the S1 level. It was recommended that she resume chemo with Eribulin. SHe was seen back on 06/08/18, as she wanted treatment locally. Her repeat scan showed fairly rapid growth of her pelvic mass. It was thus decided to change her to [place]/Taxotere with dose modification per recommendations from the [facility]. She is s/p 6 cycles She had marked progressive fatigue, and drop in appetite, spending about 75- 80% of the day in bed or sitting down. Thus chemo was held, and CT repeated. Scans from 09/13/18 showed a response, with stable lung nodules, and the pelvic mass now 4.6 x 2.9 cm vs 6 x 5.2 cm. Presacral soft tissue was slightly increased at 3.3 cm vs 2.9 cm with occlusion of the left iliac, felt to be due to treatment effect. She was seen at the [facility] and continuation of treatment was recommended, with dose reduction. She had reduction of both medications by 10% for C 5 and 6. She cpompleted 6 cycles on 10/19/18. CT scans on 11/07/18 showed stable findings. She was seen at the [facility] and currently observation was recommended. Her energy level and appetite is slowly improving. She has been having low BP, and some dizziness off and on. She had been having LLE pain since her surgery, involving the lower back, left buttock, with radiation down the LLE. This is reasonably controlled with treatment per PMR, though she still has flares. She denied any numbness or coldness. She reports some hesitancy with urine. She has persistent numbness in her digits, and well as transient numbness along her jawline. She was last seen in November 2018 and was referred to [facility], and felt to have had a response. At this time , observation was recommended, with f/u CT scans in 02/15. Case will also be discussed at their [facility] re possibility of surgery. She presents for increased pain. Currently on Clinical trial and appears to be concern for progressive disease Review of Systems A 14 point review of systems was assessed and completed and are all negative except for HPI Past Medical History Past Medical History: Asthma, Cancer, Diabetes Mellitus, Fibromyalgia, GERD/Reflux, Hyperlipidemia, Hypertension, Osteoarthritis (OA), Renal Disease Additional Past Medical History / Comment(s): Liposarcoma 12/31/16 with pelvic mass removal, IDDM type II, L elbow fracture-surgery/bone removal, arthritis bilateral knees/shoulders/L elbow, DDD- cervical spine and upper back, lower spinal stenosis, bilateral tinnitis, neuropathy chin and arms at times. 10/15 second mass removed in pelvic area. last chemo 10/12/2018, kidney stones History of Any Multi-Drug Resistant Organisms: None Reported Past Surgical History: Adenoidectomy, Appendectomy, Bowel Resection, Section, Hysterectomy, Orthopedic Surgery, Tonsillectomy Additional Past Surgical History / Comment(s): Exploratory lap with pelvic mass removal, port placement and removal, kidney stent/removed, D&C, right lateral salpingo-oophorectomy, colonoscopy, umbilical hernia repair, L knee arthroscopy, L elbow implant then bone removal, third molar removal Past Anesthesia/Blood Transfusion Reactions: Postoperative Nausea & Vomiting (PONV) Past Psychological History: Anxiety Additional Psychological History / Comment(s): Pt resides with her spouse and currently 2 children at home and another child at college. She is independent. She states she has some issues with anxiety, especially at night time. She uses xanax which helps. Smoking Status: Never smoker Past Alcohol Use History: None Reported Past Drug Use History: None Reported - Past Family History Mother Family Medical History: Cancer Additional Family Medical History / Comment(s): eye cancer, heart disease Father Additional Family Medical History / Comment(s): ALS, . Sister(s) Additional Family Medical History / Comment(s): ALS - Medications and Allergies Home Medications Medication Instructions Recorded Confirmed Type ALPRAZolam [Xanax] 0.25 mg PO Q6H PRN 12/31/16 05/08/19 History Albuterol Sulfate [Proair Hfa] 2 puff INHALATION RT-Q6H PRN 12/31/16 05/08/19 History Atorvastatin [Lipitor] 20 mg PO HS 12/31/16 05/08/19 History Famotidine [Pepcid] 20 mg PO DAILY 12/31/16 05/08/19 History Fenofibrate [Lofibra] 160 mg PO DAILY 12/31/16 05/08/19 History Loratadine [Claritin] 10 mg PO QAM 12/31/16 05/08/19 History Montelukast [Singulair] 10 mg PO DAILY 12/31/16 05/08/19 History metFORMIN HCL ER [Glucophage Xr] 500 mg PO BID 12/31/16 05/08/19 History Insulin Glargine,Hum.rec.anlog 100 unit SQ HS 12/18/17 05/08/19 History [Tou[place]ala Solostar] Polyethylene Glycol 3350 [Miralax] 17 gm PO DAILY PRN 12/18/17 05/08/19 History HYDROcodone/APAP 7.5-325MG [[place] 1 tab PO Q4HR PRN 01/11/18 05/08/19 History 7.5-325] Aspirin [Adult Low Dose Aspirin EC] 81 mg PO DAILY 01/24/18 05/08/19 History Enalapril [Vasotec] 2.5 mg PO DAILY 01/24/18 05/08/19 History INSULIN ASPART (NovoLOG) [NovoLOG 40 unit SQ AC-TID 07/22/18 05/08/19 History (formulary)] INSULIN ASPART (NovoLOG) [NovoLOG See Protocol SQ HS 07/22/18 05/08/19 History (formulary)] Ibuprofen [Motrin] 400 - 800 mg PO TID PRN 07/22/18 05/08/19 History Gabapentin [Neurontin] 400 mg PO TID 05/08/19 05/08/19 History Metoprolol Succinate [Toprol XL] 25 mg PO BID 05/08/19 05/08/19 History Ondansetron HCl [Zofran] 8 mg PO Q8H 05/08/19 05/08/19 History Allergies Allergy/AdvReac Type Severity Reaction Status Date / Time Penicillins Allergy Intermediate Dyspnea/Rolando Verified 05/08/19 13:22 h Sulfa (Sulfonamide Allergy Intermediate Rash/Hives Verified 05/08/19 13:22 Antibiotics) cefepime Allergy Mild fever Verified 05/08/19 13:22 artificial sweetner Allergy Severe Rash/Hives Uncoded 05/08/19 13:23 wheezing Physical Exam Vitals: Vital Signs Temp Pulse Resp BP Pulse Ox 05/10/19 11:57 98.1 F 91 15 123/61 94 L 05/10/19 09:11 98.0 F 91 17 126/70 94 L 05/10/19 04:55 97.8 F 94 16 109/56 93 L 05/09/19 21:00 98.2 F 96 16 124/58 97 Intake and Output 05/09/19 05/10/19 05/10/19 22:59 06:59 14:59 Intake Total 590 1390 Balance 590 1390 Intake: Intake, IV Titration 800 Amount Sodium Chloride 0.9% 1, 800 000 ml @ 100 mls/hr IV . Q10H [facility] Rx#:[id number] Oral 590 590 Other: Voiding Method Toilet Toilet Bedside Commode Bedside Commode # Voids 1 Gen: Alert and Oriented, NAD Head: NCNT Neck Supple Heart RRR Lungs No increased effort CTA B Abdomen: S/ND/NT Ext: No Rash, No Edema, Equal Strength Psych: Calm and Coroperative Neuro: No Focal Deficits Noted. Results CBC & Chem 7: 05/10/19 11:22 05/10/19 11:22 Labs: Abnormal Lab Results - Last 24 Hours (Table) 05/09/19 05/09/19 05/10/19 Range/Units 17:02 20:15 07:08 WBC (3.8-10.6) k/uL RBC (3.80-5.40) m/uL Hgb (11.4-16.0) gm/dL Hct (34.0-46.0) % Glucose (74-99) mg/dL POC Glucose (mg/dL) 232 H 179 H 188 H (75-99) mg/dL Calcium (8.4-10.2) mg/dL 05/10/19 05/10/19 05/10/19 Range/Units 11:22 11:22 11:28 WBC 3.1 L (3.8-10.6) k/uL RBC 3.15 L (3.80-5.40) m/uL Hgb 9.7 L D (11.4-16.0) gm/dL Hct 29.1 L (34.0-46.0) % Glucose 177 H (74-99) mg/dL POC Glucose (mg/dL) 179 H (75-99) mg/dL Calcium 8.1 L (8.4-10.2) mg/dL Microbiology - Last 24 Hours (Table) 05/08/19 15:10 Urine Culture - Final Urine,Voided 05/08/19 14:20 Blood Culture - Preliminary Blood No Growth after [address] scan - abdomen: report reviewed CT scan - chest: report reviewed US - abdomen: report reviewed Assessment and Plan Plan: Liposarcoma: - Concern for progressive disease on Clinical trial at outside hospital - Patient states confirmed she was on trial medication, therefore would mean progression on drug - Nausea/VOmiting/Headaches/WOrd-searching are new - will order MRI Brain to assess for metasttic disease Neoplastic Related Pain: - Was not controlled on ER Morphine and norco - Will trial Low dose fentanyl patch and continue percocet prn pain - Bowel regimen I have completed the full history and physical of this patient and developed the complete impression and plan, Agree with Renetta CUTLER, dictated as a scribe
[2019-05-10 20:05] LABS: Glucose,Whole Blood 184 mg/dL (75-99)
[2019-05-10 22:44] VITALS: RESP 16
[2019-05-11] MEDS: oxyCODONE-APAP 10-325MG 1 EACH TAB PO PRN (03:07)
[2019-05-11 05:10] VITALS: BP 114/59; PULSE 97; TEMP 98.3
[2019-05-11] MEDS: SODIUM CHLORIDE 0.9% 1,000 ML IV SCH (05:34)
[2019-05-11 07:17] LABS: Glucose,Whole Blood 130 mg/dL (75-99)
[2019-05-11] MEDS: POLYETHYLENE GLYCOL 3350 17 GM POWD.PACK PO SCH (08:00)
[2019-05-11] MEDS: PANTOPRAZOLE 40 MG TABLET PO SCH (08:00)
[2019-05-11] MEDS: SENNOSIDES-DOCUSATE SODIUM 1 EACH TAB PO SCH (08:00)
[2019-05-11] MEDS: HYDROmorphone 2 MG TAB PO SCH (08:00)
[2019-05-11] MEDS: ONDANSETRON 4 MG/2 ML VIAL IVP PRN (10:31)
[2019-05-11] MEDS: LORazepam 2 MG/ML INJ IV PRN (10:33)
--- NOTE | 2019-05-11 10:49 | P.PN ---
Subjective Progress Note Date: 05/11/19 The patient states that she feels much more comfortable after starting the fentanyl. Mentation and speech are also much clearer. She is able to pass gas, and tolerate a diet with small amounts of food at one time. No fever/chills/vomiting Objective - Vital Signs Vital signs: Vital Signs Temp 98.3 F 05/11/19 05:00 Pulse 97 05/11/19 05:00 Resp 16 05/11/19 08:00 BP 114/59 05/11/19 05:00 Pulse Ox 94 L 05/11/19 05:00 Intake & Output 05/10/19 05/11/19 05/11/19 18:59 06:59 18:59 Intake Total 2029 Balance 2029 Intake: Intake, IV Titration 1200 Amount Sodium Chloride 0.9% 1, 1200 000 ml @ 100 mls/hr IV . Q10H [facility] Rx#:[id number] Oral 830 Other: Voiding Method Toilet Toilet Bedside Commode Bedside Commode Bedside Commode # Voids 3 2 - Constitutional General appearance: Present: no acute distress - EENT Eyes: Present: EOMI ENT: Present: hearing grossly normal, normal oropharynx - Respiratory Respiratory: bilateral: CTA - Cardiovascular Rhythm: regular - Gastrointestinal Gastrointestinal Comment(s): Left mid abdomen ostomy Ill-defined diffuse mass palpated involving most of left upper abdomen General gastrointestinal: Present: distended - Integumentary Integumentary: Present: normal - Neurologic Neurologic: Present: CNII-XII intact - Musculoskeletal Musculoskeletal: Present: generalized weakness - Psychiatric Psychiatric: Present: A&O x's 3, appropriate affect - Labs CBC & Chem 7: 05/10/19 11:22 05/10/19 11:22 Labs: Abnormal Lab Results - Last 24 Hours (Table) 05/10/19 05/10/19 05/10/19 Range/Units 11:22 11:22 11:28 WBC 3.1 L (3.8-10.6) k/uL RBC 3.15 L (3.80-5.40) m/uL Hgb 9.7 L D (11.4-16.0) gm/dL Hct 29.1 L (34.0-46.0) % Glucose 177 H (74-99) mg/dL POC Glucose (mg/dL) 179 H (75-99) mg/dL Calcium 8.1 L (8.4-10.2) mg/dL 05/10/19 05/10/19 05/11/19 Range/Units 17:06 20:04 07:13 WBC (3.8-10.6) k/uL RBC (3.80-5.40) m/uL Hgb (11.4-16.0) gm/dL Hct (34.0-46.0) % Glucose (74-99) mg/dL POC Glucose (mg/dL) 171 H 184 H 130 H (75-99) mg/dL Calcium (8.4-10.2) mg/dL Microbiology - Last 24 Hours (Table) 05/08/19 14:20 Blood Culture - Preliminary Blood No Growth after 48 hours Assessment and Plan (1) Cancer associated pain Narrative/Plan: This was the patient's main present he complained leading to this admission. She reports improvement in pain control with the addition of fentanyl. She states that she was not getting significant relief from the morphine, and it was affecting her mentation and speech. Continue fentanyl as outpatient for long acting, with Percocet for breakthrough pain Has been assessed by radiation oncology, and given her prior treatment and extent of disease is not felt to be a candidate for palliative radiation Current Visit: Yes Status: Acute Code(s): G89.3 - NEOPLASM RELATED PAIN (ACUTE) (CHRONIC) SNOMED Code(s): 23420439479969 (2) Urinary tract infection Narrative/Plan: While urinalysis was positive, culture was negative . The patient is covered with antibiotics Current Visit: Yes Status: Acute Priority: High Code(s): N39.0 - URINARY TRACT INFECTION, SITE NOT SPECIFIED SNOMED Code(s): 94291176 (3) Liposarcoma Narrative/Plan: The patient has widespread recurrent disease on CAT scan. As noted in the initial consult, she had been on clinical trial , but has progressed . At this time the plan per the [facility] is to unblind her. If the patient was on placebo, sh e will be crossed over to the study drug. However if she was on study drug, indicating true failure of treatment, then the plan is to offer her salvage chemotherapy or targeted therapy. The comfort care has been discussed with the patient but she does desire active treatment at this time MRI of the brain was ordered due to mental status changes noted on exam yesterday. This is pending. However changes have improved significantly indicating that this may have been medication effect. Current Visit: No Status: Acute Priority: High Code(s): C49.9 - MALIGNANT NEOPLASM OF CONNECTIVE AND SOFT TISSUE, UNSP SNOMED Code(s): 583627910
[2019-05-11 12:02] LABS: Glucose,Whole Blood 158 mg/dL (75-99)
--- NOTE | 2019-05-11 13:33 | P.DS ---
Providers Date of admission: 05/08/19 19:18 Expected date of discharge: 05/11/19 Attending physician: Bay Montero Consults: 05/09/19 12:27 Consult Physician Routine Consulting Provider: Pal Mukherjee Consult Reason/Comments: cancer pain, fever Do you want consulting provider notified?: Yes Primary care physician: Carlos Ling Assessment: Terminal cancer ovarian General: [Patient awake, alert and oriented times 3. Patient in no acute distress.] HEENT: [PERRL. EOMI. No pharyngeal erythema or exudate.] Neck: [No adenopathy.] Cardiac: [Heart regular in rate and rhythm. No S3. No S4. No clicks, rubs. No murmur.] Lungs: [Clear to auscultation bilaterally.] Abdomen: [No mass. No organomegaly. Bowel sounds presnt and normoactive in all 4 quadrants.] Extremes: [No edema no cyanosis no claudication normal pulses] : [] Musculoskeletal: [No joint erythema, edema or tenderness.] Skin: [No rash.] Neurologic: [No lateralizing deficits. CN II - XII grossly intact.] Lymphatic: [No adenopathy.] Health Concerns: Concern regarding possible urosepsis patient is undergoing experimental chemotherapy at [facility] and she had been or had a culture positive infection disqualified her from the program. Her urine culture was found to be negative. Patient Condition at Discharge: Fair Plan - Discharge Summary Discharge Rx Participant: No New Discharge Prescriptions: No Action metFORMIN HCL ER [Glucophage Xr] 500 mg PO BID ALPRAZolam [Xanax] 0.25 mg PO Q6H PRN PRN Reason: Anxiety/Insomnia Albuterol Sulfate [Proair Hfa] 2 puff INHALATION RT-Q6H PRN PRN Reason: Shortness Of Breath Fenofibrate [Lofibra] 160 mg PO DAILY Montelukast [Singulair] 10 mg PO DAILY Famotidine [Pepcid] 20 mg PO DAILY Atorvastatin [Lipitor] 20 mg PO HS Loratadine [Claritin] 10 mg PO QAM Polyethylene Glycol 3350 [Miralax] 17 gm PO DAILY PRN PRN Reason: Constipation Insulin Glargine,Hum.rec.anlog [Toujeo Solostar] 100 unit SQ HS HYDROcodone/APAP 7.5-325MG [[place] 7.5-325] 1 tab PO Q4HR PRN PRN Reason: Pain Enalapril [Vasotec] 2.5 mg PO DAILY Aspirin [Adult Low Dose Aspirin EC] 81 mg PO DAILY Ibuprofen [Motrin] 400 - 800 mg PO TID PRN PRN Reason: Pain INSULIN ASPART (NovoLOG) [NovoLOG (formulary)] See Protocol SQ HS INSULIN ASPART (NovoLOG) [NovoLOG (formulary)] 40 unit SQ AC-TID Gabapentin [Neurontin] 400 mg PO TID Metoprolol Succinate [Toprol XL] 25 mg PO BID Ondansetron HCl [Zofran] 8 mg PO Q8H Discharge Medication List ALPRAZolam [Xanax] 0.25 mg PO Q6H PRN 12/31/16 [History] Albuterol Sulfate [Proair Hfa] 2 puff INHALATION RT-Q6H PRN 12/31/16 [History] Atorvastatin [Lipitor] 20 mg PO HS 12/31/16 [History] Famotidine [Pepcid] 20 mg PO DAILY 12/31/16 [History] Fenofibrate [Lofibra] 160 mg PO DAILY 12/31/16 [History] Loratadine [Claritin] 10 mg PO QAM 12/31/16 [History] Montelukast [Singulair] 10 mg PO DAILY 12/31/16 [History] metFORMIN HCL ER [Glucophage Xr] 500 mg PO BID 12/31/16 [History] Insulin Glargine,Hum.rec.anlog [[place] Solkattar] 100 unit SQ HS 12/18/17 [History] Polyethylene Glycol 3350 [Miralax] 17 gm PO DAILY PRN 12/18/17 [History] Aspirin [Adult Low Dose Aspirin EC] 81 mg PO DAILY 01/24/18 [History] Enalapril [Vasotec] 2.5 mg PO DAILY 01/24/18 [History] INSULIN ASPART (NovoLOG) [NovoLOG (formulary)] 40 unit SQ AC-TID 07/22/18 [History] INSULIN ASPART (NovoLOG) [NovoLOG (formulary)] See Protocol SQ HS 07/22/18 [History] Ibuprofen [Motrin] 400 - 800 mg PO TID PRN 07/22/18 [History] Gabapentin [Neurontin] 400 mg PO TID 05/08/19 [History] Metoprolol Succinate [Toprol XL] 25 mg PO BID 05/08/19 [History] Ondansetron HCl [Zofran] 8 mg PO Q8H 05/08/19 [History] HYDROmorphone [Dilaudid] 2 mg PO Q4-6H PRN 05/11/19 [History] Follow up Appointment(s)/Referral(s): Carlos Ling MD [Primary Care Provider] - 1-2 days Activity/Diet/Wound Care/Special Instructions: Transfer to [facility] Discharge Disposition: OTHER INSTITUTION NOT DEFINED
== END 2019-05-11 14:49 | disposition home or self-care (01) | DRG 864 ==
LOC: EC 12:51 → 3NMEDONC 19:18
PROVIDERS: ADMIT Family Medicine; ATTEND Family Medicine
DX: R50.9 Fever, unspecified (principal); C56.9 Malignant neoplasm of unspecified ovary; C79.89 Secondary malignant neoplasm of other specified sites; J98.11 Atelectasis; J45.20 Mild intermittent asthma, uncomplicated; E11.22 Type 2 diabetes mellitus with diabetic chronic kidney disease; E78.5 Hyperlipidemia, unspecified; F41.9 Anxiety disorder, unspecified; G89.3 Neoplasm related pain (acute) (chronic); I12.9 Hypertensive chronic kidney disease with stage 1 through stage 4 chronic kidney disease, or unspecified chronic kidney disease; K21.9 Gastro-esophageal reflux disease without esophagitis; M17.0 Bilateral primary osteoarthritis of knee; M19.012 Primary osteoarthritis, left shoulder; M19.011 Primary osteoarthritis, right shoulder; M19.022 Primary osteoarthritis, left elbow; M79.7 Fibromyalgia; N18.2 Chronic kidney disease, stage 2 (mild); Z00.6 Encounter for examination for normal comparison and control in clinical research program; Z79.4 Long term (current) use of insulin; Z79.82 Long term (current) use of aspirin; Z79.899 Other long term (current) drug therapy; Z80.8 Family history of malignant neoplasm of other organs or systems; Z87.442 Personal history of urinary calculi; Z90.710 Acquired absence of both cervix and uterus; Z90.79 Acquired absence of other genital organ(s); Z90.721 Acquired absence of ovaries, unilateral; Z88.1 Allergy status to other antibiotic agents; Z88.0 Allergy status to penicillin; Z88.2 Allergy status to sulfonamides; R11.2 Nausea with vomiting, unspecified; E11.40 Type 2 diabetes mellitus with diabetic neuropathy, unspecified; M50.30 Other cervical disc degeneration, unspecified cervical region; M48.00 Spinal stenosis, site unspecified; Z82.49 Family history of ischemic heart disease and other diseases of the circulatory system; Z82.0 Family history of epilepsy and other diseases of the nervous system; Z86.718 Personal history of other venous thrombosis and embolism
CPT/HCPCS: 36415; 70110; 71046; 74176; 80048; 80053; 81001; 83605; 83735; 84100; 85025; 85027; 87040; 87086; 87502; 96361; 96365; 96366; 96375; 96376; 99285

== ENCOUNTER 2019-05-17 22:33 | Emergency (ER) | payer MEDICAID ==
[2019-05-18] MEDS ORDERED: ALPRAZolam 0.5 MG TAB PO STA (00:15)
--- NOTE | 2019-05-18 00:23 | ED ---
General Adult HPI - General Source: patient, family, RN notes reviewed, old records reviewed Mode of arrival: wheelchair Limitations: no limitations <Humberto Lezama - Last Filed: 05/18/19 00:25> <Justin Vaughan - Last Filed: 05/18/19 02:32> - General Chief complaint: Anxiety Stated complaint: Anxiety Time Seen by Provider: 05/17/19 23:52 - History of Present Illness Initial comments: Chief complaint and history of present illness this is a 58-year-old female here with family. Patient has a history of sarcoma. She's been receiving chemotherapy for the past 2 years. The patient's also on Xanax as well as Dilaudid. The patient is overly anxious and had a panic attack at home. The patient's afraid that she will stop breathing when she takes her medications. She is allowed to take 2 tablets 3 times a day but is only taking 1 tablet twice a day. That is of Dilaudid. Xanax is a 0.25 mg tablet to be taken when she becomes overly anxious. I discussed with her how to use the pills safely. The patient's not complaining of any new aches pains or problems. (Humberto Lezama) - Related Data Home Medications Medication Instructions Recorded Confirmed ALPRAZolam [Xanax] 0.25 mg PO Q6H PRN 12/31/16 05/17/19 Albuterol Sulfate [Proair Hfa] 2 puff INHALATION RT-Q6H PRN 12/31/16 05/17/19 metFORMIN HCL ER [Glucophage Xr] 500 mg PO BID 12/31/16 05/17/19 Insulin Glargine,Hum.rec.anlog 100 unit SQ HS 12/18/17 05/17/19 [Toujeo Solostar] Polyethylene Glycol 3350 [Miralax] 17 gm PO DAILY PRN 12/18/17 05/17/19 INSULIN ASPART (NovoLOG) [NovoLOG See Protocol SQ ACHS 07/22/18 05/17/19 (formulary)] Metoprolol Succinate [Toprol XL] 25 mg PO BID 05/08/19 05/17/19 HYDROmorphone [Dilaudid] 2 mg PO Q4-6H PRN 05/11/19 05/17/19 Palbociclib [Ibrance] 125 mg PO DAILY 05/17/19 05/17/19 Prochlorperazine [Compazine] 10 mg PO Q6H 05/17/19 05/17/19 Sennosides [Senokot] 8.6 mg PO DAILY 05/17/19 05/17/19 Allergies Allergy/AdvReac Type Severity Reaction Status Date / Time Penicillins Allergy Intermediate Dyspnea/Rolando Verified 05/17/19 23:30 h Sulfa (Sulfonamide Allergy Intermediate Rash/Hives Verified 05/17/19 23:30 Antibiotics) cefepime Allergy Mild fever Verified 05/17/19 23:30 artificial sweetner Allergy Severe Rash/Hives Uncoded 05/08/19 13:23 wheezing Review of Systems ROS Other: All systems not noted in ROS Statement are negative. <Humberto Lezama - Last Filed: 05/18/19 00:25> ROS Other: All systems not noted in ROS Statement are negative. <Justin Vaughan - Last Filed: 05/18/19 02:32> ROS Statement: Those systems with pertinent positive or pertinent negative responses have been documented in the HPI. Review of systems. The patient not complaining of any headache or visual acuity changes. Denies any chest pain or shortness of breath. She has chronic abdominal pain. 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 Has a colostomy which is functioning. Past medical problems significant for renal disease, anxiety, asthma, diabetes mellitus, fibromyalgia, GERD, hyperlipidemia, hypertension, osteoarthritis. 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 Surgeries include appendectomy, tonsils and adenoids. She had a bowel resection with colostomy. Previous followed by hysterectomy and and exploratory lap or pelvic mass removal. She reports ALLERGIES to penicillins, sulfa, cefepime and artificial sweeteners. 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 10/15 second mass removed in pelvic area. last chemo 10/12/2018, kidney stones History of Any Multi-Drug Resistant Organisms: None Reported Past Surgical History: Adenoidectomy, Appendectomy, Bowel Resection, Section, Hysterectomy, Orthopedic Surgery, Tonsillectomy Additional Past Surgical History / Comment(s): Exploratory lap with pelvic mass removal, port placement and removal, kidney stent/removed, D&C, right lateral salpingo-oophorectomy, colonoscopy, umbilical hernia repair, L knee arthroscopy, L elbow implant then bone removal, third molar removal Past Anesthesia/Blood Transfusion Reactions: Postoperative Nausea & Vomiting (PONV) Past Psychological History: Anxiety Smoking Status: Never smoker Past Alcohol Use History: None Reported Past Drug Use History: None Reported - Past Family History Mother Family Medical History: Cancer Additional Family Medical History / Comment(s): eye cancer, heart disease Father Additional Family Medical History / Comment(s): ALS, . Sister(s) Additional Family Medical History / Comment(s): ALS - <Humberto Lezama - Last Filed: 05/18/19 00:25> General Exam Limitations: no limitations <Humberto Lezama - Last Filed: 05/18/19 00:25> - General Exam Comments Initial Comments: General: The patient is awake and alert, here because of an anxiety attack at home. The patient states she has abdominal pain and takes Dilaudid tablets for that. 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 She also has been given Xanax to be taken on a when necessary basis for anxiety. She is afraid that if she takes any of the medications she might fall asleep and did not awaken. She had a bad anxiety attack at home. Her signs show temperature 97.3 pulse 124 respiratory rate 24 pulse ox 96% room air blood pressure 122/77 Eye: Pupils are equal, , extra-ocular movements are intact; there is normal conjunctiva bilaterally. No signs of icterus. Ears, nose, mouth and throat: There are moist mucous membranes and no oral lesions. Neck: No complaint of neck pain Cardiovascular: Tachycardic heart rate, 127. Patient is anxious No murmur, rub or gallop is appreciated. Respiratory: Lungs are clear to auscultation, respirations are non-labored, breath sounds are equal. No wheezes, stridor, rales, or rhonchi. Not complaining of short of breath unless she has a panic attack Gastrointestinal: Patient has a functioning colostomy, history of liposarcoma originating in the abdomen. States she has chronic abdominal pain Back: Denies back pain Musculoskeletal: No complaint of extremity pain Neurological: No complaint of any weakness or neuro deficits. Skin: No complaint of any rashes Psychiatric: Patient is very anxious, reports having had a panic attack at home. (Humberto Lezama) Course Vital Signs 05/17/19 05/18/19 22:35 01:33 Temperature 97.3 F L 99.2 F Pulse Rate 124 H 95 Respiratory 24 18 Rate Blood Pressure 122/77 126/65 O2 Sat by Pulse 96 97 Oximetry Disposition <Humberto Lezama - Last Filed: 05/18/19 00:25> Is patient prescribed a controlled substance at d/c from ED?: No <Justin Vaughan - Last Filed: 05/18/19 02:32> Clinical Impression: Acute anxiety Disposition: HOME SELF-CARE Condition: Fair Instructions (If sedation given, give patient instructions): Generalized Anxiety Disorder (ED) Referrals: Carlos Ling MD [Primary Care Provider] - 1-2 days
[2019-05-18] MEDS ORDERED: SODIUM CHLORIDE 0.9% 1,000 ML IV STA (00:37)
[2019-05-18 01:36] VITALS: RESP 18
[2019-05-18 02:58] VITALS: BP 132/78; PULSE 88; TEMP 98.6
== END 2019-05-18 02:59 | disposition home or self-care (01) ==
LOC: EC 22:33
DX: F41.9 Anxiety disorder, unspecified (principal); F41.0 Panic disorder [episodic paroxysmal anxiety]; R10.9 Unspecified abdominal pain; C79.89 Secondary malignant neoplasm of other specified sites; J45.909 Unspecified asthma, uncomplicated; E11.40 Type 2 diabetes mellitus with diabetic neuropathy, unspecified; M79.7 Fibromyalgia; K21.9 Gastro-esophageal reflux disease without esophagitis; E78.5 Hyperlipidemia, unspecified; I10 Essential (primary) hypertension; M19.90 Unspecified osteoarthritis, unspecified site; Z79.4 Long term (current) use of insulin; Z79.51 Long term (current) use of inhaled steroids; Z79.899 Other long term (current) drug therapy; Z88.0 Allergy status to penicillin; Z88.2 Allergy status to sulfonamides; Z88.1 Allergy status to other antibiotic agents; Z92.21 Personal history of antineoplastic chemotherapy
CPT/HCPCS: 96360; 99283